=== PATIENT | male | born 1940 | race Caucasian/White ===

== ENCOUNTER 2022-07-31 16:05 | Inpatient (IN) | payer MEDICARE, BC, SELFPAY ==
[2022-07-31] VITALS (32 sets, daily range): BP systolic 140–196; BP diastolic 62–139; PULSE 40–61; RESP 16–30; TEMP 36.4–36.7; O2SAT 94–98; BMI 31.6; BMI 31.9
--- NOTE | 2022-07-31 16:34 | ED.GENADULT ---
HPI - General Adult General Time Seen by Provider: 16:34 Date Seen: 07/31/22 Chief complaint: Shortness of Breath/Dyspnea Stated complaint: Dizzy Light headed Fall Afib Time Seen by Provider: 07/31/22 16:10 Source: patient and RN notes reviewed Mode of arrival: ambulatory Limitations: no limitations History of Present Illness HPI narrative: Patient is an 82-year-old male coming in accompanied by his daughter with multitude of symptoms. When she saw him this morning she thought he just did not look like he is feeling not well, he decided to come in later today but not at that time. He has had a little increased cough over baseline, some sputum production. He has been having increasing weakness, reports he did fall after tripping today. Denies any loss of consciousness or hitting his head but is on blood thinner. He has paroxysmal atrial fibrillation. He has had no chest pain. He denies any abdominal pain, no nausea or vomiting. His stools maybe are becoming more diarrheal over the last couple weeks and is having difficulty with fecal continence with this. He thought maybe he was just becoming incontinent of stool but on questioning it really sounds like the stools are more runny. She is not aware of any fevers. He has had some episodes of increased urinary incontinence. That is not necessarily new. They do worry about possibly having a UTI and and wonder if we can obtain a urinalysis. He has had some recent severe low back pain which he states has been gone for about a week now. He did do physical therapy and see a chiropractor. He notes no pain going into either leg, no numbness or tingling through the legs or the perineum. The fall today he states he just tripped over his sandal. He notes this morning about 10-15 minutes after breakfast he had due to the bathroom and had a stool. He went to [place] for lunch and soon as he came home he had fecal urgency and some incontinence, had to get to the toilet right away. Related Data Home Medications Medication Instructions Recorded Confirmed amlodipine 5 mg tablet 5 mg PO QDAY 06/18/22 07/31/22 atorvastatin 40 mg tablet 40 mg PO QPM 06/18/22 07/31/22 epinephrine 0.3 mg/0.3 mL 0.3 mg IM Q4H PRN 06/18/22 07/31/22 injection, auto-injector finasteride 5 mg tablet 5 mg PO QDAY 06/18/22 07/31/22 fluticasone propionate 50 2 spray intranasal QDAY 06/18/22 07/31/22 mcg/actuation nasal spray,suspension levothyroxine 200 mcg tablet 200 mcg PO QDAY 06/18/22 07/31/22 omeprazole 20 mg capsule,delayed 20 mg PO QDAY 06/18/22 07/31/22 release rivaroxaban 20 mg tablet 20 mg PO QDAY 06/18/22 07/31/22 sotalol 120 mg tablet 120 mg PO QDAY 06/18/22 07/31/22 Previous Rx's Medication Instructions Recorded tamsulosin 0.4 mg capsule 0.8 mg PO QDAY #180 caps 06/18/22 fluoxetine 40 mg capsule 40 mg PO QDAY #30 caps 07/29/22 Allergies Allergy/AdvReac Type Severity Reaction Status Date / Time aspirin Allergy Mild Unknown Verified 06/18/22 09:18 iodine Allergy Mild Hives Verified 06/18/22 09:18 Penicillins Allergy Mild Unknown Verified 06/18/22 09:18 strawberry Allergy Mild Unknown Verified 06/18/22 09:18 Sulfa (Sulfonamide Allergy Mild Hives Verified 06/18/22 09:18 Antibiotics) Review of Systems Status of ROS: Reports: 10 or more systems reviewed and unremarkable except as noted in History and below [facility] Medical History (Updated 07/31/22 @ 20:29 by Kim Kim MD) Alcohol intoxication History of alcohol abuse History of prostate cancer Surgical History (Updated 06/18/22 @ 09:25 by Lorenza Arias LPN) History of lumbar laminectomy Hx of appendectomy Hx of hemorrhoidectomy Hx of thyroidectomy Social History Smoking Status: Former smoker What tobacco products do you use: cigarettes Smoking quit date/years: >15 years ago Do you use any of these nicotine containing products: None Second hand tobacco smoke exposure: No How often do you have a drink containing alcohol: 4 or more times a week How many standard drinks containing alcohol do you have on a typical day: 5 or 6 How often do you have six or more drinks on one occasion: Daily or almost daily AUDIT-C Alcohol total score: 10 Non-prescribed substance use: denies use Exam Const: Vital Signs, click to edit/add: Vital Signs - 24 hr 07/31/22 16:18 07/31/22 16:50 07/31/22 16:30 Temperature 98.1 F Pulse Rate Pulse Rate [Right Pulse Oximeter] 55 L 55 L Respiratory Rate 22 Blood Pressure Blood Pressure [Ri ght Upper Arm] 140/74 H 147/69 H Pulse Oximetry 97 97 97 Oxygen Delivery Me thod Room Air Room Air 07/31/22 17:00 07/31/22 18:00 07/31/22 18:35 Temperature Pulse Rate Pulse Rate [Right Pulse Oximeter] 54 L 56 L 56 L Respiratory Rate Blood Pressure Blood Pressure [Ri ght Upper Arm] 157/112 H 196/85 H Pulse Oximetry 94 94 97 Oxygen Delivery Me thod Room Air Room Air Room Air 07/31/22 19:00 07/31/22 19:03 07/31/22 19:04 Temperature Pulse Rate 59 L 59 L 59 L Pulse Rate [Right Pulse Oximeter] Respiratory Rate Blood Pressure 150/100 H Blood Pressure [Ri ght Upper Arm] Pulse Oximetry 97 97 97 Oxygen Delivery Me thod 07/31/22 19:15 07/31/22 19:18 07/31/22 19:19 Temperature Pulse Rate 40 L 59 L 58 L Pulse Rate [Right Pulse Oximeter] Respiratory Rate Blood Pressure 193/100 H Blood Pressure [Ri ght Upper Arm] Pulse Oximetry 97 97 97 Oxygen Delivery Me thod 07/31/22 19:30 07/31/22 19:33 07/31/22 19:45 Temperature Pulse Rate 41 L 61 Pulse Rate [Right Pulse Oximeter] Respiratory Rate Blood Pressure 194/95 H Blood Pressure [Ri ght Upper Arm] Pulse Oximetry 95 96 94 Oxygen Delivery Me thod 07/31/22 19:50 07/31/22 19:51 07/31/22 20:00 Temperature Pulse Rate 58 L 59 L 51 L Pulse Rate [Right Pulse Oximeter] Respiratory Rate Blood Pressure 189/84 H Blood Pressure [Ri ght Upper Arm] Pulse Oximetry 96 97 97 Oxygen Delivery Me thod 07/31/22 20:03 07/31/22 20:15 07/31/22 20:17 Temperature Pulse Rate 57 L 57 L 56 L Pulse Rate [Right Pulse Oximeter] Respiratory Rate Blood Pressure 179/76 H 170/85 H Blood Pressure [Ri ght Upper Arm] Pulse Oximetry 95 97 97 Oxygen Delivery Me thod Documenting provider has reviewed patient's vital signs: yes Common normals: no apparent distress, oriented x3, no limitations, healthy appearing, alert and well nourished General appearance: cooperative, comfortable and well kempt Nutritional appearance: overweight HENMT: Common normals: normocephalic, head/scalp atraumatic, hearing grossly normal bilaterally, external nose normal, nasal mucous membranes and turbinates normal, moist oral mucous membranes, oropharynx normal, dentition normal and gingiva normal Head and scalp: normocephalic and atraumatic Nose: external nose normal and nasal mucous membranes and turbinates normal Eye: Common normals: PERRL, EOMs intact bilaterally and conjunctivae normal Conjunctiva: conjunctiva(e) normal Pupil: PERRL Other: Sclera might just be very slightly icteric Neck & C-Spine: Common normals: full ROM, no lymphadenopathy, supple (No midline tenderness), no meningeal signs, no JVD and thyroid normal Thyroid: thyroid normal Resp: Common normals: normal respiratory effort, no retractions, no use of accessory muscles and clear to auscultation bilaterally Auscultation: clear to auscultation bilaterally Cardio: Common normals: no JVD, regular rate, regular rhythm, S1 normal heart sound, S2 normal heart sound, no gallops and no clicks Rate: regular rate Rhythm: regular rhythm Heart sounds: S1 normal, S2 normal and murmur (Soft systolic, rub right sternal border.) GI: Common normals: Normal to inspection, nondistended, normoactive bowel sounds present, soft to palpation, non-tender, no hepatosplenomegaly and no masses Palpation: soft and no hepatosplenomegaly Extremity: Common normals: normal to inspection, full ROM, normal capillary refill, no joint enlargement, no clubbing, cyanosis or edema, no calf tenderness and no pedal edema Neuro: Common normals: oriented x3, CN's II-XII intact bilaterally, moves all extremities, no focal motor deficits and no sensory deficits noted Sensorium/orientation: alert Meningeal signs: no meningeal signs Speech: speech normal Psych: Appearance: well kempt Course Course Hospital Course: Patient has a multitude of symptoms including respiratory, urinary concerns, possibly diarrhea with fecal incontinence, weakness. Differential is broad, not all symptoms might be explained by 1 entity. Will get a head CT, chest x-ray, full complement of labs encompassing infectious, cardiac, endocrine, GI, pulmonary as well as neurologic. I do see history of alcohol abuse in his records, will also consider this. Reevaluation(s) Reevaluation #1: About 18 40, nursing staff alerted me to his telemetry. He was having slow pulse in the 30s. He was feeling short of breath with this. I had nursing staff recheck a troponin and obtain an EKG. The point of care troponin was still normal. I have a subsequent EKG showing sinus bradycardia in the 30s with a bigeminy pattern. The machine read it at 59 but it most certainly is not. He then bounce back up to 58. He is on amlodipine and sotalol. We will be paging [facility] on-call to talk to them regarding this patient. Time: 18:40 Consultations Consultation #1: Patient was reviewed with Cardiology Dr. Marcano from [place]. The absolutely do not have any beds nor does any other facility within the [facility], all are on divert. Patient does not require ICU is he is not that unstable. Dr. Marcano said patient needs to be on his sotalol for his control of his atrial fibrillation in due to the sinus node dysfunction is developing is going to need a pacemaker. I have reviewed this with the current hospitalist, the patient and his daughter. She was under the impression that it was emergent it might be possible to get him a bed. This is not the case, it is not emergent enough at this point. He will not be able leave the hospital, I did discuss looking at places like [facility] but we also have ambulance issues right now is 1 of our ambulance is is transferring another cardiac patient to [facility]. We have not outside ambulance transfer and another patient to an ICU bed. There will be difficulty with transfer. Given all of this, his been decided that he will be watched here in [facility] overnight, they will need to try [facility] contact Cardiology and get him placement wearer pacemaker could be done. Time: 20:13 Vital Signs Vital signs: Initial Vital Signs Temperature 98.1 F 07/31/22 16:18 Temperature Source Temporal Artery Scan 07/31/22 16:18 Pulse Rate 55 L 07/31/22 16:18 Respiratory Rate 22 07/31/22 16:18 Blood Pressure 140/74 H 07/31/22 16:18 Blood Pressure Mean 96 07/31/22 16:18 Blood Pressure Position Semi-Fowlers 07/31/22 16:18 Pulse Oximetry 97 07/31/22 16:18 Oxygen Delivery Method 07/31/22 16:18 Vital Signs Temperature 98.1 F 07/31/22 16:18 Pulse Rate 55 L 07/31/22 16:18 Respiratory Rate 22 07/31/22 16:18 Blood Pressure 140/74 H 07/31/22 16:18 Pulse Oximetry 97 07/31/22 16:18 Oxygen Delivery Method 07/31/22 16:18 Temperature 98.1 F 07/31/22 16:18 Pulse Rate 56 L 07/31/22 20:17 Respiratory Rate 22 07/31/22 16:18 Blood Pressure 170/85 H 07/31/22 20:17 Pulse Oximetry 97 07/31/22 20:17 Oxygen Delivery Method 07/31/22 18:35 Medical Decision Making Lab Data Lab results reviewed: Yes I reviewed the patient's lab results Labs: Lab Results 07/31/22 07/31/22 07/31/22 Range/Units 04:21 16:51 17:00 WBC (4.50-11.00) K/uL RBC (4.30-5.90) m/uL Hgb (13.5-17.5) gm/dL Hct (37.0-53.0) % MCV (80-100) fL MCH (26-34) pg MCHC (32-36) gm/dL RDW Coeff of Florentin (11.5-15.5) % Plt Count (140-440) K/uL Neut % (Auto) (42.0-72.0) % Lymph % (Auto) (20-44) % Dougherty % (Auto) (0.0-11.0) % Eos % (Auto) (0.0-7.0) % Baso % (Auto) (0.0-3.0) % Neut # (Auto) (1.7-7.0) K/uL Lymph # (Auto) (0.90-2.90) K/uL Dougherty # (Auto) (0.00-0.90) K/UL Eos # (Auto) (0.00-0.50) K/uL Baso # (Auto) (0.00-0.30) K/uL Abs Immat Gran (auto) (0.00-0.30) K/uL D-Dimer Quant (PE/DVT) (0.00-0.50) ug/ml VBG pH 7.436 H (7.32-7.43) VBG pCO2 40 (40-50) mmHG VBG pO2 40.0 (25-47) mmHG VBG HCO3 27 (21-28) mmol/L Sodium (135-149) mmol/L Potassium (3.6-5.1) mmol/L Chloride (96-114) mmol/L Carbon Dioxide (20-32) mmol/L BUN (7-30) mg/dL Creatinine (0.5-1.5) mg/dL Estimated Creat Clear Estimated GFR ml/min Glucose (60-115) mg/dL Lactate 1.1 (0.5-1.9) mmol/L Calcium (8.4-10.6) mg/dL Magnesium (1.5-2.6) mg/dL Total Bilirubin (0.1-1.5) mg/dL AST (12-35) U/L ALT (4-50) U/L Alkaline Phosphatase (40-150) U/L C-Reactive Protein (0.5-1.0) mg/dL NT-Pro-B Natriuret Pep (0-450) PG/mL Total Protein (6.0-8.3) g/dL Albumin (3.3-5.0) g/dL TSH (0.270-4.200) uIU/mL Free T4 (0.70-1.85) ng/dL Urine Color (Yellow) Urine Appearance (Clear) Urine pH (5.0-8.5) Ur Specific [place] (1.000-1.030) Urine Protein (Negative) Urine Glucose (UA) (Negative) Urine Ketones (Negative) Urine Blood (Negative) Urine Nitrite (Negative) Urine Bilirubin (Negative) Urine Urobilinogen (0.2-1.0) Ur Leukocyte Esterase (Negative) Urine RBC (0-2) Urine WBC (0-5) Ur Squamous Epith Cells (None-Few) Urine Bacteria (None) Ethyl Alcohol (0.01-0.03) % SARS-CoV-2 (PCR) Negative SARS-CoV-2 (Negative) POC Troponin I 0.01 (0.01-0.04) ng/ml 07/31/22 07/31/22 07/31/22 Range/Units 17:07 17:07 17:07 WBC 6.40 (4.50-11.00) K/uL RBC 4.17 L (4.30-5.90) m/uL Hgb 12.7 L (13.5-17.5) gm/dL Hct 38.4 (37.0-53.0) % MCV 92 (80-100) fL MCH 31 (26-34) pg MCHC 33 (32-36) gm/dL RDW Coeff of Florentin 13.4 (11.5-15.5) % Plt Count 191 (140-440) K/uL Neut % (Auto) 72.1 H (42.0-72.0) % Lymph % (Auto) 16.7 L (20-44) % Dougherty % (Auto) 7.8 (0.0-11.0) % Eos % (Auto) 3.0 (0.0-7.0) % Baso % (Auto) 0.2 (0.0-3.0) % Neut # (Auto) 4.60 (1.7-7.0) K/uL Lymph # (Auto) 1.10 (0.90-2.90) K/uL Dougherty # (Auto) 0.50 (0.00-0.90) K/UL Eos # (Auto) 0.19 (0.00-0.50) K/uL Baso # (Auto) 0.01 (0.00-0.30) K/uL Abs Immat Gran (auto) 0.01 (0.00-0.30) K/uL D-Dimer Quant (PE/DVT) 0.51 H (0.00-0.50) ug/ml VBG pH (7.32-7.43) VBG pCO2 (40-50) mmHG VBG pO2 (25-47) mmHG VBG HCO3 (21-28) mmol/L Sodium 137 (135-149) mmol/L Potassium 3.7 (3.6-5.1) mmol/L Chloride 107 (96-114) mmol/L Carbon Dioxide 24 (20-32) mmol/L BUN 15 (7-30) mg/dL Creatinine 1.0 (0.5-1.5) mg/dL Estimated Creat Clear 55.10 Estimated GFR 75 ml/min Glucose 138 H (60-115) mg/dL Lactate (0.5-1.9) mmol/L Calcium 8.6 (8.4-10.6) mg/dL Magnesium 1.8 (1.5-2.6) mg/dL Total Bilirubin 1.2 (0.1-1.5) mg/dL AST 24 (12-35) U/L ALT 19 (4-50) U/L Alkaline Phosphatase 103 (40-150) U/L C-Reactive Protein 0.6 (0.5-1.0) mg/dL NT-Pro-B Natriuret Pep 697 H (0-450) PG/mL Total Protein 6.6 (6.0-8.3) g/dL Albumin 3.7 (3.3-5.0) g/dL TSH (0.270-4.200) uIU/mL Free T4 (0.70-1.85) ng/dL Urine Color (Yellow) Urine Appearance (Clear) Urine pH (5.0-8.5) Ur Specific [place] (1.000-1.030) Urine Protein (Negative) Urine Glucose (UA) (Negative) Urine Ketones (Negative) Urine Blood (Negative) Urine Nitrite (Negative) Urine Bilirubin (Negative) Urine Urobilinogen (0.2-1.0) Ur Leukocyte Esterase (Negative) Urine RBC (0-2) Urine WBC (0-5) Ur Squamous Epith Cells (None-Few) Urine Bacteria (None) Ethyl Alcohol < 0.01 L (0.01-0.03) % SARS-CoV-2 (PCR) (Negative) POC Troponin I (0.01-0.04) ng/ml 07/31/22 07/31/22 07/31/22 Range/Units 17:07 18:20 19:15 WBC (4.50-11.00) K/uL RBC (4.30-5.90) m/uL Hgb (13.5-17.5) gm/dL Hct (37.0-53.0) % MCV (80-100) fL MCH (26-34) pg MCHC (32-36) gm/dL RDW Coeff of Florentin (11.5-15.5) % Plt Count (140-440) K/uL Neut % (Auto) (42.0-72.0) % Lymph % (Auto) (20-44) % Dougherty % (Auto) (0.0-11.0) % Eos % (Auto) (0.0-7.0) % Baso % (Auto) (0.0-3.0) % Neut # (Auto) (1.7-7.0) K/uL Lymph # (Auto) (0.90-2.90) K/uL Dougherty # (Auto) (0.00-0.90) K/UL Eos # (Auto) (0.00-0.50) K/uL Baso # (Auto) (0.00-0.30) K/uL Abs Immat Gran (auto) (0.00-0.30) K/uL D-Dimer Quant (PE/DVT) (0.00-0.50) ug/ml VBG pH (7.32-7.43) VBG pCO2 (40-50) mmHG VBG pO2 (25-47) mmHG VBG HCO3 (21-28) mmol/L Sodium (135-149) mmol/L Potassium (3.6-5.1) mmol/L Chloride (96-114) mmol/L Carbon Dioxide (20-32) mmol/L BUN (7-30) mg/dL Creatinine (0.5-1.5) mg/dL Estimated Creat Clear Estimated GFR ml/min Glucose (60-115) mg/dL Lactate (0.5-1.9) mmol/L Calcium (8.4-10.6) mg/dL Magnesium (1.5-2.6) mg/dL Total Bilirubin (0.1-1.5) mg/dL AST (12-35) U/L ALT (4-50) U/L Alkaline Phosphatase (40-150) U/L C-Reactive Protein (0.5-1.0) mg/dL NT-Pro-B Natriuret Pep (0-450) PG/mL Total Protein (6.0-8.3) g/dL Albumin (3.3-5.0) g/dL TSH 0.190 L (0.270-4.200) uIU/mL Free T4 1.57 (0.70-1.85) ng/dL Urine Color Yellow (Yellow) Urine Appearance Clear (Clear) Urine pH 6.5 (5.0-8.5) Ur Specific [place] 1.020 (1.000-1.030) Urine Protein Negative (Negative) Urine Glucose (UA) Negative (Negative) Urine Ketones Trace A (Negative) Urine Blood Trace-lysed A (Negative) Urine Nitrite Negative (Negative) Urine Bilirubin Negative (Negative) Urine Urobilinogen 0.2 (0.2-1.0) Ur Leukocyte Esterase Trace A (Negative) Urine RBC 0-2 (0-2) Urine WBC 0-2 (0-5) Ur Squamous Epith Cells None (None-Few) Urine Bacteria None (None) Ethyl Alcohol (0.01-0.03) % SARS-CoV-2 (PCR) (Negative) POC Troponin I 0.01 (0.01-0.04) ng/ml Imaging Data CT scan - head: Attestation: I have reviewed the pertinent imaging results. Radiologist's impression: Patient: REBEKAH XIONG Facility:?[facility] Patient ID:?[id number] Site Patient ID:?[id number] Site :?[id number] Study:?CT Head W/O-07/31/2022 6:00:16 PM Ordering Physician:Lupe Alvarez Final Report: INDICATION: Falls. Incontinence. TECHNIQUE: CT of the head without contrast. Coronal and sagittal reformats are included. COMPARISON: None. FINDINGS: No CT evidence of acute cortical infarct. No loss of pepper white matter differentiation. No hyperdense vessels to suggest intracranial thrombus. No acute intracranial hemorrhage. No mass effect or midline shift. No hydrocephalus. 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 Stable. Scattered white matter hypoattenuation, typical for chronic microvascular ischemic change. No acute osseous abnormalities. Moderate polypoid opacification of the right maxillary sinus by mixed density material. Complete opacification of the left maxillary sinus with hyperdense material, likely representing a polyp. Associated widening of the ostium. 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 Mild to moderate opacification of the paranasal sinuses elsewhere appear normal soft tissues. IMPRESSION: IMPRESSION:1. No CT evidence of acute cortical infarct. No acute intracranial hemorrhage. No other acute intracranial findings. Stable chronic findings as above. Please note that all CT scans at this facility use dose modulation, iterative reconstruction, and/or weight-based dosing when appropriate to reduce radiation dose to as low as reasonably achievable. Dictated by Arnaud Palacios MD @ 07/31/2022 6:13:44 PM (Electronic Signature) Chest x-ray: Attestation: I have reviewed the pertinent imaging results. My impression: Significant cardiomegaly on my preliminary read, I do not appreciate any other acute cardiopulmonary pathology, await Radiology over-read. Radiologist's impression: Patient: REBEKAH XIONG Facility:?[facility] Patient ID:?[id number] Site Patient ID:?[id number]. Site :?[id number] Study:?XRay Chest 1V-07/31/2022 6:10:21 PM Ordering Physician:Lupe Alvarez Final Report: INDICATION: Shortness of breath TECHNIQUE: Chest 1 view. COMPARISON: FINDINGS: Cardiovascular and mediastinum: Cardiomegaly. Normal mediastinum. Lungs and pleural space: Lungs are clear. No sign of infiltrate or mass. No sign of pleural effusion. No pneumothorax. Bones and soft tissues: No significant findings. IMPRESSION: No acute findings. Cardiomegaly. Dictated by Oscar Lord MD @ 07/31/2022 6:28:39 PM Dictated by: Oscar Lord MD @ 07/31/2022 18:28:44 (Electronic Signature) ECG Data Attestation: I personally reviewed and interpreted this ECG as follows: (Sinus bradycardia, 55 beats per minute, right bundle branch block. QT corrected 484 milliseconds.) Prior ECG tracings: not available for review Critical Care Time Critical Care Time Critical Care Time: No Discharge Plan Discharge Clinical Impression: Bradycardia, Paroxysmal atrial fibrillation Patient Disposition: Admitted As Inpatient Condition: Unchanged Prescriptions: No Action epinephrine 0.3 mg/0.3 mL auto-injector 0.3 mg IM Q4H PRN levothyroxine 200 mcg tablet 200 mcg PO QDAY finasteride 5 mg tablet 5 mg PO QDAY amlodipine 5 mg tablet 5 mg PO QDAY rivaroxaban 20 mg tablet 20 mg PO QDAY Rx Instructions: must administer with meal fluticasone propionate 50 mcg/actuation spray,suspension 2 spray intranasal QDAY Rx Instructions: administer into each nostril omeprazole 20 mg capsule,delayed release(DR/EC) 20 mg PO QDAY atorvastatin 40 mg tablet 40 mg PO QPM sotalol 120 mg tablet 120 mg PO QDAY Rx Instructions: With meal tamsulosin 0.4 mg capsule 0.8 mg PO QDAY Qty: 180 3RF fluoxetine 40 mg capsule 40 mg PO QDAY Qty: 30 0RF Follow Up/Referrals: Oscar Arevalo MD [Primary Care Provider] -
--- NOTE | 2022-07-31 16:50 | CRLHL7_ITS ---
For Patients: As a result of the Cures Act, medical imaging exams and procedure reports are released immediately into your electronic medical record. You may view this report before your referring provider. If you have questions, please contact your health care provider. INDICATION: Shortness of breath TECHNIQUE: Chest 1 view. COMPARISON: FINDINGS: Cardiovascular and mediastinum: Cardiomegaly. Normal mediastinum. Lungs and pleural space: Lungs are clear. No sign of infiltrate or mass. No sign of pleural effusion. No pneumothorax. Bones and soft tissues: No significant findings. IMPRESSION: No acute findings. Cardiomegaly. Dictated by Oscar Lord MD @ 07/31/2022 6:28:39 PM Dictated by: Oscar Lord MD @ 07/31/2022 18:28:44 (Electronically Signed)
--- NOTE | 2022-07-31 16:51 | CRLHL7_ITS ---
For Patients: As a result of the Cures Act, medical imaging exams and procedure reports are released immediately into your electronic medical record. You may view this report before your referring provider. If you have questions, please contact your health care provider. INDICATION: Falls. Incontinence. TECHNIQUE: CT of the head without contrast. Coronal and sagittal reformats are included. COMPARISON: None. FINDINGS: No CT evidence of acute cortical infarct. No loss of pepper white matter differentiation. No hyperdense vessels to suggest intracranial thrombus. No acute intracranial hemorrhage. No mass effect or midline shift. No hydrocephalus. 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 Stable. Scattered white matter hypoattenuation, typical for chronic microvascular ischemic change. No acute osseous abnormalities. Moderate polypoid opacification of the right maxillary sinus by mixed density material. Complete opacification of the left maxillary sinus with hyperdense material, likely representing a polyp. Associated widening of the ostium. 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 Mild to moderate opacification of the paranasal sinuses elsewhere appear normal soft tissues. IMPRESSION: IMPRESSION:1. No CT evidence of acute cortical infarct. No acute intracranial hemorrhage. No other acute intracranial findings. Stable chronic findings as above. Please note that all CT scans at this facility use dose modulation, iterative reconstruction, and/or weight-based dosing when appropriate to reduce radiation dose to as low as reasonably achievable. Dictated by Arnaud Palacios MD @ 07/31/2022 6:13:44 PM (Electronically Signed)
[2022-07-31 17:23] LABS: Troponin, Point-of-Care* 0.01 ng/ml (0.01-0.04)
[2022-07-31 17:25] LABS: HCO3 VBG 27 mmol/L (21-28); Lactate* 1.1 mmol/L (0.5-1.9); PCO2 VBG 40 mmHG (40-50); pH VBG 7.436 (7.32-7.43)
[2022-07-31 17:29] LABS: Basophils Absolute Auto 0.01 K/uL (0.00-0.30); Basophils Percent Auto 0.2 % (0.0-3.0); Eosinophils Absolute Auto 0.19 K/uL (0.00-0.50); Hematocrit 38.4 % (37.0-53.0); Hemoglobin* 12.7 gm/dL (13.5-17.5); Immature Granulocytes Abs Auto 0.01 K/uL (0.00-0.30); Lymphocytes Percent Auto 16.7 % (20-44); Mean Corpuscular HGB Conc 33 gm/dL (32-36); Mean Corpuscular Hemoglobin 31 pg (26-34); Mean Corpuscular Volume 92 fL (80-100); Monocytes Percent Auto 7.8 % (0.0-11.0); Neutrophils Percent Auto 72.1 % (42.0-72.0); Platelet Count* 191 K/uL (140-440); RDW Coefficient of Variation % 13.4 % (11.5-15.5); Red Blood Count 4.17 m/uL (4.30-5.90)
--- OUTSIDE RECORDS SUMMARY | 2022-07-31 17:30 | XMS_ITS | Encounter Summary ---
:1940 Author Organization [facility] Address [address] [place] [id number] Care Team Providers Name Role Phone Unavailable Primary Care Provider Unavailable Encounter Details Date Type Department Care Team Description 01/03/2008 Office Visit-[facility] Allergy and Asthma Ortiz Shay [facility] CT Building XXX RESIGNED XXX 2nd Floor, Clinic 2A [address] [facility] [address] [id number] [phone] Social History Tobacco Use Types Packs/Day Years Used Date Never Assessed Sex Assigned at Date Recorded Not on file documented as of this encounter Progress Notes Ortiz Shay - 01/03/2008 11:20 AM CDT Manager Applied: Ortiz Shay Status: Final - Signature Encounter: 03 Jan 2008 Type: Allergy and Asthma Visit Pulmonary, Allergy and Critical Care Department of Medicine [place] [address] [place] [address] Office: [phone] Allergy and Asthma Clinic [facility] Fifth Floor, Clinic [address]A [address] [place] [address] RE: Abraham Mancuso : 1940 ELVIRA: 01/03/2008 OUTPATIENT VISIT NOTE HISTORY OF PRESENT ILLNESS: Patient is a 68-year-old man we are seeing with regard to 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 At present he is on doxepin 10 mg a day, Camelia 180 mg q.d., Singulair 10 mg a day, ranitidine 150 b.i.d. Because of persistence of his symptoms, we are seeing afua at the present time. REVIEW OF SYSTEMS: Constitutional, allergy, eyes, ENT, respiratory, cardiovascular, GI, , hematologic, endocrine, skin, musculoskeletal, neurological, psychiatric were all negative outside of what I mentioned already and the followin. Lab studies showed borderline ODILON, elevated IgE level of 462, elevated thyroid peroxidase of 74,261, and 168, normal thyroid function, normal tryptase. 2. Constitutional, allergy, eyes, ENT, respiratory, cardiovascular, GI, , hematologic, endocrine, skin, musculoskeletal, neurological, psychiatric were otherwise unchanged over those of his last visit. PHYSICAL EXAMINATION: Physical examination today shows weight 200.6, blood pressure 148/81, pulse 66. Head, EENT unremarkable. No edema was noted of the nasal mucosa. Neck examination revealed no abnormal neck vein distention. Lungs revealed no wheezes or rhonchi. Heart: No murmurs or arrhythmias. Abdominal examination without organomegaly. Skin revealed a few urticarial lesions. Neurological examination negative. 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 RECOMMENDATIONS: 1. I plan on Periactin 4 mg b.i.d. 2. Food specific IgE panel. 3. Doxepin 20 mg a day. 4. Camelia 180 mg q.day. 5. Ranitidine 150 mg b.i.d. 6. Singulair 10 mg q.d. 7. Continue his other medications. 8.To be reevaluated in one month or sooner if his symptoms warrant. Ortiz Shay M.D. mixed livestock farmer Director, Asthma & Allergy Program MB:laurie Electronically signed by:Sanju Shay M.D. Jan 17 2008 12:42PM HUNTING AND FISHING GUIDE Ortiz Shay - 01/03/2008 11:20 AM CDT Manager Applied: Ortiz Shay Status: Final - Signature Encounter: 03 Jan 2008 Type: Allergy and Asthma Visit Pulmonary, Allergy and Critical Care Department of Medicine [place] [address] [place] [address] Office: [phone] Allergy and Asthma Clinic [facility] Fifth Floor, Clinic [address]A [address] [place] [address] RE: Abraham Mancuso : 1940 ELVIRA: 01/03/2008 OUTPATIENT VISIT NOTE ADDENDUM: 1. We plan to see how he does with the addition of Periactin. Ortiz Shay M.D. mixed livestock farmer Director, Asthma & Allergy Program MB:laurie Electronically signed by:Sanju Shay M.D. Jan 17 2008 12:42PM HUNTING AND FISHING GUIDE documented in this encounter Plan of Treatment Not on filedocumented as of this encounter Visit Diagnoses Not on filedocumented in this encounter
--- OUTSIDE RECORDS SUMMARY | 2022-07-31 17:30 | XMS_ITS | Encounter Summary ---
:1940 Author Organization [facility] Address [address] [place] [address] Care Team Providers Name Role Phone Unavailable Primary Care Provider Unavailable Encounter Details Date Type Department Care Team Description 01/03/2010 Historic Results INTERFACED REPORT Manuel Silvestre MD [facility] [place] [id number] [place], [place] [address] (Wo rk) Social History Tobacco Use Types Packs/Day Years Used Date Never Assessed Sex Assigned at Date Recorded Not on file documented as of this encounter Plan of Treatment Not on filedocumented as of this encounter Procedures Procedure Name Priority Date/Time Associated Diagnosis Comme nts EKG 12 LEAD Routine 01/03/2010 8:55 AM Results f or this RING MAKING MACHINE OPERATOR procedure are i n the results section . documented in this encounter Results EKG 12 LEAD (01/03/2010 8:55 AM RING MAKING MACHINE OPERATOR) [facility] Method Time Signature Ventricular Rate 98 BPM RADIOLOGY RESULTS Atrial Rate 98 BPM RADIOLOGY RESULTS ME Interval 188 ms RADIOLOGY RESULTS QRS Duration 100 ms RADIOLOGY RESULTS QT 332 ms RADIOLOGY RESULTS QTc 423 ms RADIOLOGY RESULTS R AXIS 7 degrees RADIOLOGY RESULTS T [place] 28 degrees RADIOLOGY RESULTS Interpretation Sinus rhythm RADIOLOGY ECG Incomplete right bundle branch block RESULTS Borderline ECG When compared with ECG of 03-JAN-2010 08:49, (unconfirmed) Vent. rate has decreased BY ??[address] no longer depressed in Inferior leads ST less depressed in Lateral leads Specimen Anatomical Collection Method Collection Time Receive d Time (Source) Location / / Volume Laterality 01/03/2010 8:55 AM 0 9:19 RING MAKING MACHINE OPERATOR AM RING MAKING MACHINE OPERATOR Ciro Silvestre MD ECG ORDERABLES Performing Organization Address City/State/ZIP Code Phon e Number RADIOLOGY RESULTS documented in this encounter Visit Diagnoses Not on filedocumented in this encounter
--- OUTSIDE RECORDS SUMMARY | 2022-07-31 17:30 | XMS_ITS | Encounter Summary ---
:1940 Author Organization [facility] Address [address] [place] [address]. [place] [address] Care Team Providers Name Role Phone Maikel Brock Primary Care Provider Encounter Details Date Type Department Care Team Description 05/22/2022 Travel Social History Tobacco Use Types Packs/Day Years Used Date Former Smoker Quit: 11/02/18 96 Smokeless Tobacco: Never Used Alcohol Use Standard Drinks/Week Comments Yes 28 (1 standard drink = 0.6 oz pure alcoh ol) Sex Assigned at Date Recorded Not on file COVID-19 Exposure Response Date Recorded In the last 10 days, have you been in contact with No / Unsu re 05/22/2022 6:12 PM CDT someone who was confirmed or suspected to have Coronavirus/COVID-19? documented as of this encounter Plan of Treatment Not on filedocumented as of this encounter Visit Diagnoses Not on filedocumented in this encounter Care Teams Jewel Sawyer Relationship Specialty Start Date End Date Maikel Brock PCP - General Family Practice 09/19/[address] [place] [address] documented as of this encounter
--- OUTSIDE RECORDS SUMMARY | 2022-07-31 17:30 | XMS_ITS | Encounter Summary ---
:1940 Author Organization [place] [facility] Address [address] [facility] [place] [address] Care Team Providers Name Role Phone Carlos Alberto Corral MD Primary Care Provider Encounter Details Date Type Department Care Team Description 11/02/[address] [facility] Mya Dela Cruz MD [facility]i [address] [place] [phone] [place] [address] Anesthesia Record Procedure Summary Procedure Name Responsible Anesthesia Start Anesthesia Stop Anesthesiologist Time Time BILATERAL UPPER LID Henry Dela Cruz MD 11/02/12 0931 1039 PTOSIS AND MECHANICAL PTOSIS REPAIR (Bilateral Eye) Events Date Time Event Comment 11/02/2012 0831 0931 An Start 1039 An Stop No medications on file. Agents No agents on file. Blood No blood administrations on file. Lines, Drains, and Airways Type Details Placement Removal Peripheral IV 11/02/12; 0934; 11/02/12 0934 by Bernardo, 11/02/12 1127 by Left; Hand EDMUNDO Reese Melia , KAYCEE DIP TANKER Incision/Surgical Site 11/02/12; 1030; 11/02/12 1030 by 09/19/17 1102 by Bilateral; Eye; Holli Matthews RN Fall, Tra cy A, RN 09/19/17; 1102 documented in this encounter Social History Tobacco Use Types Packs/Day Years Used Date Former Smoker Quit: 11/02/18 96 Smokeless Tobacco: Never Used Alcohol Use Standard Drinks/Week Comments Yes 0 (1 standard drink = 0.6 oz pure alcoho l) Sex Assigned at Date Recorded Not on file documented as of this encounter OR Notes Anesthesia Postprocedure Evaluation - Henry Dela Cruz MD - 11/02/2012 11:30 AM CST Anesthesia Post-Evaluation Note Patient: Abraham Mancuso Patient location: PACU Procedure(s) Performed: Procedure(s) with comments: REPAIR PTOSIS BILATERAL - BILATERAL UPPER LID PTOSIS AND MECHANICAL PTOSIS REPAIR Anesthesia type: MAC Patient Condition Respiratory Function (RR / SpO2 / Airway Patency): Satisfactory Cardiac Function (HR / Rhythm / BP): Satisfactory Mental Status: Satisfactory Temperature: Satisfactory Pain Control: Satisfactory PONV: None Beta-Keanu Therapy: None indicated Hydration Status: Satisfactory Last Vitals: Filed Vitals: 11/02/12 1050 11/02/12 1100 11/02/12 1115 BP: 154/84 164/88 162/86 Temp: Resp: 16 16 16 SpO2: 97% 97% 97% 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 Pt has had prior anesthetic. Type: General ROS/MED HX Pulmonary: Neurologic: Cardiovascular: (+) hypertension . . METS/Exercise Tolerance: Hematologic: Musculoskeletal: GI/Hepatic: Renal: Endo: (+) thyroid problem hypothyroidism, Psychiatric: Infectious Disease: Other: Anesthesia Plan ASA Score 3 . Plan for MAC Routine analgesia and antiemetics to be used for post-operative care. Anesthetic plan, risks, benefits and alternatives discussed with: patient or passenger service representative. Pre-operative diagnosis: @ORPREDX@ @ORPROCALL@ @ALLERGY@ Current Outpatient Prescriptions on File Prior to Visit: AmLODIPine Besylate (NORVASC PO), Take 5 mg by mouth daily. FLUoxetine HCl (PROZAC PO), Take 40 mg by mouth daily. Levothyroxine Sodium (SYNTHROID PO), Take 112 mcg by mouth daily. tamsulosin (FLOMAX) 0.4 MG 24 hr capsule, Take 0.4 mg by mouth daily. atorvastatin (LIPITOR) 20 MG tablet, TAKE 1 TABLET BY MOUTH EVERY DAY @LASTLAB(hgb,inr,k)@ History & Physical Review History and physical reviewed; no interval change.incomp. RBBB; prostate cancer . 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
--- OUTSIDE RECORDS SUMMARY | 2022-07-31 17:30 | XMS_ITS | Encounter Summary ---
:1940 Author Organization [facility] Address [address] [place] [address] Care Team Providers Name Role Phone Vinod Maikel Chandra Primary Care Provider Reason for Visit Reason Comments Hematuria Encounter Details Date Type Department Care Team Description 09/19/2017 Emergency [facility] Danica Gloria MD [facility] Emergency Dept [facility] [address] [place], [place] [id number] [phone] Social History Tobacco Use Types Packs/Day Years Used Date Former Smoker Quit: 11/02/18 96 Smokeless Tobacco: Never Used Alcohol Use Standard Drinks/Week Comments Yes 28 (1 standard drink = 0.6 oz pure alcoh ol) Sex Assigned at Date Recorded Not on file documented as of this encounter Last Filed Vital Signs Vital Sign Reading Time Taken Comments Blood Pressure 148/81 09/19/2017 12:54 PM WEED CONTROLLER Pulse - - Temperature 36.6 ??C (97.9 ??F) 09/19/2017 9:41 AM WEED CONTROLLER Respiratory Rate 20 09/19/2017 12:54 PM WEED CONTROLLER Oxygen Saturation 94% 09/19/2017 12:54 Simultaneous filing. PM WEED CONTROLLER User may not hav e seen previous data. Inhaled Oxygen - - Concentration Weight 101.6 kg (224 lb) 09/19/2017 9:41 AM WEED CONTROLLER Height 172.7 cm (5' 8) 09/19/2017 9:41 AM WEED CONTROLLER Body Mass Index 34.06 09/19/2017 9:41 AM WEED CONTROLLER documented in this encounter Discharge Instructions Discharge InstructionsDaDionte watt MD - 09/19/2017 12:41 PM CST Images from the original note were not included. Blood in the Urine Blood in the urine (hematuria) has many possible causes. If it occurs after an injury (such as a caraccident or fall), it is most often a sign of bruising to the kidney or bladder. Common causes of blood in the urine include urinary tract infections, kidney stones, inflammation, tumors, or certain other diseases of the kidney or bladder. Menstruation can cause blood to appear in the urine sample, although it is not coming from the urinary tract. If only a trace amount of blood is present, it will show up on the urine test, even though the urinemay be yellow and not pink or red. This may occur with any of the above conditions, as well as heavyexercise or high fever. In this case, your doctor may want to repeat the urine test on another day. This will show if the blood is still present. If it is, then other tests can be done to find out the cause. Home care Follow these home care guidelines: ?? If your urine does not appear bloody (pink, brown or red) then you do not need to restrict your activity in any way. ?? If you can see blood in your urine, rest and avoid heavy exertion until your next exam. Do not use aspirin, blood thinners, or anti-platelet or anti- inflammatory medicines. These include ibuprofen and naproxen. These thin the blood and may increase bleeding. Follow-up care Follow up with your healthcare provider, or as advised. If you were injured and had blood in your urine, you should have a repeat urine test in 1 to 2 days. Contact your doctor for this test. A radiologist will review any X-rays that were taken. You will be told of any new findings that may affect your care. When to seek medical advice Call your healthcare provider right away if any of these occur: ?? Bright red blood or blood clots in the urine (if you did not have this before) ?? Weakness, dizziness or fainting ?? New groin, abdominal, or back pain ?? Fever of 100.4??F (38??C) or higher, or as directed by your healthcare provider ?? Repeated vomiting ?? Bleeding from the nose or gums or easy bruising Date Last Reviewed: 06/26/2016 ?? [phone] [employer]. [address] [place] [address], [place] [address]. All rights reserved. This information is not intended as a substitute for professional medical care. Always follow your healthcare professional's instructions. CONTROLLER documented in this encounter Medications at Time of Discharge Medication Sig Dispensed Refills Start Date End Date AmLODIPine Besylate (NORVASC Take 5 mg by 0 PO) mouth daily. atorvastatin (LIPITOR) 20 MG TAKE 1 TABLET BY 90 tablet 0 0 04/21/2012 tabletIndications: Pure MOUTH EVERY DAY hypercholesterolemia FLUoxetine HCl (PROZAC PO) Take 40 mg by 0 mouth daily. Levothyroxine Sodium (SYNTHROID Take 112 mcg by 0 PO) mouth daily. metoprolol (TOPROL-XL) 50 MG 24 Take 1 tablet 30 tablet 1 0 02/17/2014 hr tablet (50 mg) by mouth daily Rivaroxaban (XARELTO PO) 0 SOTALOL HCL, AF, PO 0 tamsulosin (FLOMAX) 0.4 MG Take by mouth 0 capsule daily documented as of this encounter ED Notes Denisse Figueroa RN - 09/19/2017 12:01 PM CST Patient to US via cart with transport. CONTROLLER Bonnie Hicks RN - 09/19/2017 9:46 AM CST A&Ox4. ABC's intact. Pt c/o blood and clots in urine that started last week. [facility] Has a follow appt on at [place], but bleeding has returned. Denies pain. CONTROLLER Dionte Gloria MD - 09/19/2017 9:29 AM CST History Chief Complaint: Hematuria HPI Abraham Mancuso is a 77 year old male with a history of atrial fibrillation on Xarelto (successful cardioversion), incomplete bundle branch block, hypothyroidism, hypertension, hypercholesterolemia, and prostate cancer who presents with hematuria. The patient states he first noticed the hematuria this past Thursday09/14/17. He states it has been ongoing since then and happens every day, but does not happen all day long. He notes he sometimes passes clots with the urine. The patient went to [facility] in [place] where they placed a Nava catheter and performed a urinalysis, which was negative. The patient went back on Thursday to have the catheter removed since it was irritating him. The patient was instructed to follow-up with urology, and made an appointment at [facility] for this 09/24/17. The patient denies any pain with bowel movements, dysuria, penile pain, scrotal pain, testicular pain, rash, or hernias. The patient does note decreased urine output and increased difficulty. The patient has had some increased shortness of breath and lightheadedness as well recently. The patient's PCP follows his PSA, which has been stable and was checked in the past year. Of note, the patient reports one incident of bloody penile discharge without urination. He denies weight loss, back/flank pain, or fever. Allergies: Aspirin Contrast dye: hives Lisinopril Penicillins Sulfa drugs Medications: Sotalol Xarelto Flomax Metoprolol Amlodipine besylate Prozac Levothyroxine sodium Lipitor Past Medical History: Atrial fibrillation with cardioversion Hypertension Hypercholesterolemia Hypothyroidism Incomplete bundle branch block Prostate cancer Past Surgical History: Appendectomy Hemorrhoidectomy, external Laminectomy lumbar one level Repair ptosis bilateral Thyroidectomy Family History: History reviewed. No pertinent family history. Social History: Smoking status: Former smoker, quit 10/1995 Alcohol use: Yes, 28 glasses of wine per week PCP: Carlos Alberto Corral Marital Status: [2] Review of Systems Constitutional: Negative for chills and fever. Respiratory: Positive for shortness of breath. Gastrointestinal: Negative for abdominal pain, diarrhea, nausea and vomiting. Genitourinary: Positive for decreased urine volume, difficulty urinating and hematuria. Negative fordysuria, penile pain, scrotal swelling and testicular pain. Skin: Negative for rash. All other systems reviewed and are negative. Physical Exam Patient Vitals for the past 24 hrs: BP Temp Temp src Heart Rate Resp SpO2 Height Weight 09/19/17 1211 152/83 - - - - - - - 09/19/17 0941 155/89 97.9 ??F (36.6 ??C) Oral 63 20 96 % 1.727 m (5' 8) 101.6 kg (224 lb) Physical Exam General: Well appearing, nontoxic. Resting comfortably Head: Scalp, face, and head appear normal Eyes: Conjunctivae non-injected and sclerae white. No pallor. ENT: The external nose is normal Pinnae are normal mucous membranes moist Uvula is in the midline Neck: Normal range of motion There is no rigidity noted Trachea is in the midline CV: Regular rate and rhythm Normal S1/S2, no S3/S4 No murmur or rub Resp: Lungs are clear and equal bilaterally There is no tachypnea No increased work of breathing No rales, wheezing, or rhonchi GI: Abdomen is soft, no rigidity or guarding No distension, or mass No tenderness or rebound tenderness. No CVA tenderness. : Normal circumcised male genitalia. Urethral meatus normal without bleeding or discharge. No lesions or rash. Testes non-tender to palpation in normal lie. No masses or swelling. No erythema. No palpable inguinal hernias. MS: Normal muscular tone Symmetric motor strength No lower extremity edema Skin: No rash or acute skin lesions noted Neuro: Awake and alert Speech is normal and fluent Moves all extremities spontaneously Gait normal Psych: Normal affect. Appropriate interactions. Emergency Department Course Imaging: Radiographic findings were communicated with the patient who voiced understanding of the findings. US Renal Complete: Negative. As read by Radiology. Laboratory: UA: Blood large, WBC 4 (H), RBC 103 (H), mucous present, o/w negative CBC: WNL (WBC 6.9, HGB 14.3, PLT 195) BMP: Glucose 107 (H), o/w WNL (Creatinine 0.98) Emergency Department Course: Past medical records, nursing notes, and vitals reviewed. 1052: I performed an exam of the patient and obtained history, as documented above. IV inserted and blood drawn. UA collected, results above. The patient was sent for a renal ultrasound while in the emergency department, findings above. 1245: I rechecked the patient. Explained findings to the patient and his daughter. I rechecked the patient. Findings and plan explained to the patient. Patient discharged home with instructions regarding supportive care, medications, and reasons to return. The importance of close follow-up was reviewed. Impression & Plan Medical Decision Making: Abraham Mancuso is a 77 year old male who presents for evaluation of hematuria. The patient was seen for this at his hospital in [place] on Thursday where they placed a Nava catheter for a short period of CBI and suggested follow-up with urology. He was unable to receive a prompt appointment with urology in [place] so presents here today. The patient has continued to have symptoms intermittentlyand, although he has a follow-up appointment with [facility] scheduled for , came in for further evaluation. The patient is on Xarelto, and this is likely contributing to his bleeding. DDx includes UTI, pyelonephritis, bladder cancer, renal cancer, AVM, inflammatory cystitis, among other causes of gross hematuria. He has no hx of trauma. UA negative for infection. Renal function normal. No anemia. Return if increasing pain, vomiting, fever, or inability to tolerate the oral antibiotic. We discussed the need for close urology follow up as well as possibly holding his Xeralto for now. After discussing the risks and benefits the patient felt that he would prefer to continue Xeralto for now until hediscusses it with urology. Return precautions were discussed with patient. The patient's questions were answered and the patient was agreeable with discharge. Diagnosis: ICD-10-CM 1. Gross hematuria R31.0 Disposition: Discharged to home Berta Santillan 09/19/2017 [facility] IBerta, irma serving as a scribe at 10:52 AM on 09/19/2017 to document services personally performed by Dionte Gloria MD based on my observations and the provider's statements to me. Dionte Gloria MD 09/19/17 1646 CONTROLLER documented in this encounter Plan of Treatment Not on filedocumented as of this encounter Procedures Procedure Name Priority Date/Time Associated Comments Diagnosis US RENAL COMPLETE STAT 09/19/2017 12:16 Result s for this PM WEED CONTROLLER procedure are i n the results section. CBC WITH PLATELETS & STAT 09/19/2017 11:15 Res ults for this DIFFERENTIAL AM WEED CONTROLLER procedure are i n the results section. BASIC METABOLIC PANEL STAT 09/19/2017 11:15 Re sults for this AM WEED CONTROLLER procedure are i n the results section. ROUTINE UA WITH STAT 09/19/2017 10:40 Results for this MICROSCOPIC AM WEED CONTROLLER procedure are i n the results section. documented in this encounter Results US Renal Complete (09/19/2017 12:16 PM WEED CONTROLLER) Anatomical Region Laterality Modality Abdomen/Pelvis Ultrasound Specimen (Source) Anatomical Location Collection Method / Collectio n Time Received Time / Laterality Volume Impressions 09/19/2017 12:48 PM WEED CONTROLLER IMPRESSION: Negative. SCOOTER ZARCO MD Narrative 09/19/2017 12:48 PM WEED CONTROLLER ULTRASOUND RENAL COMPLETE ??09/19/2017 12:16 PM HISTORY: Hematuria. COMPARISON: None. FINDINGS: The right kidney measures 9.3 cm pole-to -pole. No mass or obstruction. The left kidney measures 10.4 cm pole-to -pole. No mass or obstruction. The bladder is partially distended and a ppeared normal. Procedure Note Scooter Zarco MD - 09/19/2017Forma tting of this note might be different from the original. ULTRASOUND RENAL COMPLETE 09/19/2017 12: 16 PM HISTORY: Hematuria. COMPARISON: None. FINDINGS: The right kidney measures 9.3 cm pole-to -pole. No mass or obstruction. The left kidney measures 10.4 cm pole-to -pole. No mass or obstruction. The bladder is partially distended and a ppeared normal. IMPRESSION: Negative. SCOOTER ZARCO MD Dionte Gloria MD IMG US ORDERABLES (ABNORMAL) Basic metabolic panel (09/19/2017 11:15 AM WEED CONTROLLER) P athologist Signature Sodium 137 133 - 144 09/19/2017 [facility] mmol/L 11:50 AM [facility] Potassium 4.0 3.4 - 5.3 09/19/2017 [facility] mmol/L 11:50 AM [facility] Chloride 106 94 - 109 09/19/2017 [facility] mmol/L 11:50 AM [facility] Carbon Dioxide 25 20 - 32 09/19/2017 [facility] mmol/L 11:50 AM [facility] Anion Gap 6 3 - 14 09/19/2017 [facility] mmol/L 11:50 AM [facility] Glucose 107 (H) 70 - 99 09/19/2017 [facility] mg/dL 11:50 AM [facility] Urea Nitrogen 17 7 - 30 09/19/2017 [facility] mg/dL 11:50 AM [facility] Creatinine 0.98 0.66 - 09/19/2017 [facility] 1.25 mg/dL 11:50 AM [facility] GFR Estimate 74 >60 09/19/2017 [facility] mL/min/1.7 11:[address] Comment: Non GFR Calc GFR Estimate If 89 >60 mL/min/1.7m2 09/19/2017 11:50 AM [facility] Comment: GFR Calc Calcium 8.5 8.5 - 10.1 mg/dL 09/19/2017 11:50 AM [facility] Specimen Anatomical Collection Method Collection Time Receive d Time (Source) Location / / Volume Laterality Blood specimen 09/19/2017 11:15 7 (specimen) AM WEED CONTROLLER 11:29 AM WEED CONTROLLER Dionte Gloria MD LAB - BLOOD ORDERABLES Performing Organization Address City/State/ZIP Code Phon e Number [place] [address] [place] [address] [phone] CBC with platelets differential (09/19/2017 11:15 AM [facility] gist Method Time Signature WBC 6.9 4.0 - 09/19/2017 [facility] 11.0 11:33 AM [facility] 10e9/L [facility] RBC Count 4.71 4.4 - 5.9 09/19/2017 [facility] 10e12/L 11:33 AM [facility] Hemoglobin 14.3 13.3 - 09/19/2017 [facility] 17.7 g/dL 11:33 AM [facility] Hematocrit 42.5 40.0 - 09/19/2017 [facility] 53.0 % 11:33 AM [facility] MCV 90 78 - 100 09/19/2017 [facility] fl 11:33 AM [facility] MCH 30.4 26.5 - 09/19/2017 [facility] 33.0 pg 11:33 AM [facility] MCHC 33.6 31.5 - 09/19/2017 [facility] 36.5 g/dL 11:33 AM [facility] RDW 13.4 10.0 - 09/19/2017 [facility] 15.0 % 11:33 AM [facility] Platelet Count 195 150 - 450 09/19/2017 [facility] 10e9/L 11:33 AM [facility] Diff Method Automated 09/19/2017 [facility] Method 11:33 AM [facility] % Neutrophils 74.7 % 09/19/2017 [facility] 11:33 AM [facility] % Lymphocytes 14.5 % 09/19/2017 [facility] 11:33 AM [facility] % Monocytes 7.2 % 09/19/2017 [facility] 11:33 AM [facility] % Eosinophils 2.9 % 09/19/2017 [facility] 11:33 AM [facility] % Basophils 0.3 % 09/19/2017 [facility] 11:33 AM [facility] % Immature 0.4 % 09/19/2017 [facility] Granulocytes 11:33 AM [facility] Nucleated RBCs 0 0 /100 09/19/2017 [facility] 11:33 AM [facility] Absolute 5.2 1.6 - 8.3 09/19/2017 [facility] Neutrophil 10e9/L 11:33 AM [facility] Absolute 1.0 0.8 - 5.3 09/19/2017 [facility] Lymphocytes 10e9/L 11:33 AM [facility] Absolute 0.5 0.0 - 1.3 09/19/2017 [facility] Monocytes 10e9/L 11:33 AM [facility] Absolute 0.2 0.0 - 0.7 09/19/2017 [facility] Eosinophils 10e9/L 11:33 AM [facility] Absolute 0.0 0.0 - 0.2 09/19/2017 [facility] Basophils 10e9/L 11:33 AM [facility] Abs Immature 0.0 0 - 0.4 09/19/2017 [facility] Granulocytes 10e9/L 11:33 AM [facility] Absolute 0.0 09/19/2017 [facility] Nucleated RBC 11:33 AM [facility] Specimen Anatomical Collection Method Collection Time Receive d Time (Source) Location / / Volume Laterality Blood specimen 09/19/2017 11:15 7 (specimen) AM WEED CONTROLLER 11:29 AM WEED CONTROLLER Dionte Gloria MD LAB - BLOOD ORDERABLES Performing Organization Address City/State/ZIP Code Phon e Number [place] [address] [place], [place] [address] [facility] [address] [place], [place] [address], [facility] [phone] (ABNORMAL) UA with Microscopic (09/19/2017 10:40 AM WEED CONTROLLER) [facility] Method Time Signature Color Urine Yellow 09/19/2017 [facility] 11:06 AM [facility] Appearance Urine Slightly 09/19/2017 [facility] Cloudy 11:06 AM [facility] Glucose Urine Negative NEG^Negat 09/19/2017 [facility] emily mg/dL 11:06 AM [facility] Bilirubin Urine Negative NEG^Negat 09/19/2017 [facility] emily 11:06 AM [facility] Ketones Urine Negative NEG^Negat 09/19/2017 [facility] emily mg/dL 11:06 AM [facility] Specific [place] 1.012 1.003 - 09/19/2017 [facility] Urine 1.035 11:06 AM [facility] Blood Urine Large (A) NEG^Negat 09/19/2017 [facility] emily 11:06 AM [facility] pH Urine 6.0 5.0 - 7.0 09/19/2017 [facility] pH 11:06 AM [facility] Protein Albumin Negative NEG^Negat 09/19/2017 [facility] Urine emily mg/dL 11:06 AM [facility] Urobilinogen 0.0 0.0 - 2.0 09/19/2017 [facility] mg/dL mg/dL 11:06 AM [facility] Nitrite Urine Negative NEG^Negat 09/19/2017 [facility] emily 11:06 AM [facility] Leukocyte Negative NEG^Negat 09/19/2017 [facility] Esterase Urine emily 11:06 AM [facility] Source Midstream 09/19/2017 [facility] Urine 10:54 AM [facility] WBC Urine 4 (H) 0 - 2 09/19/2017 [facility] /HPF 11:06 AM [facility] RBC Urine 103 (H) 0 - 2 09/19/2017 [facility] /HPF 11:06 AM [facility] Mucous Urine Present (A) NEG^Negat 09/19/2017 [facility] emily /LPF 11:06 AM [facility] Hyaline Casts 1 0 - 2 09/19/2017 [facility]06 AM [facility] Specimen (Source) Anatomical Collection Method Collection Time Re ceived Time Location / / Volume Laterality Examination of URINE SPECIMEN 09/19/2017 10:40 017 midstream urine OBTAINED BY CLEAN AM WEED CONTROLLER 10:53 A M WEED CONTROLLER specimen CATCH PROCEDURE / (procedure) Unknown Paul Edwards MD LAB - URINE ORDERABLES Performing Organization Address City/State/ZIP Code Phon e Number [place] [address] [place] [address] [facility] [address] [phone] documented in this encounter Visit Diagnoses Diagnosis Gross hematuria documented in this encounter Care Teams Crushing Machine Operator Relationship Specialty Start Date End Date Maikel Brock PCP - General Family Practice 09/19/17 [facility] [address] [place] [id number] documented as of this encounter
--- OUTSIDE RECORDS SUMMARY | 2022-07-31 17:30 | XMS_ITS | Encounter Summary ---
:1940 Author Organization [facility] Address [address] [place] [address] Care Team Providers Name Role Phone Unavailable Primary Care Provider Unavailable Reason for Visit Reason Comments Refill Request Encounter Details Date Type Department Care Team Description 04/21/2012 [facility] Jessie Corral MD Refill Request Medicine [phone] [address] [place], [place] [id number] (Wo rk) Social History Tobacco Use Types Packs/Day Years Used Date Never Assessed Sex Assigned at Date Recorded Not on file documented as of this encounter Plan of Treatment Not on filedocumented as of this encounter Visit Diagnoses Diagnosis Pure hypercholesterolemia documented in this encounter
--- OUTSIDE RECORDS SUMMARY | 2022-07-31 17:30 | XMS_ITS | Encounter Summary ---
:1940 Author Organization [facility] Address [address] [place] [address] Care Team Providers Name Role Phone Unavailable Primary Care Provider Unavailable Encounter Details Date Type Department Care Team Description 02/16/2008 Office Visit-[facility], [facility] [address] [place] [phone] Social History Tobacco Use Types Packs/Day Years Used Date Never Assessed Sex Assigned at Date Recorded Not on file documented as of this encounter Progress Notes Unknown, Provider - 02/16/2008 12:45 PM CDT Server Administrator: Cee Mccann Status: Final Encounter: 16 Feb 2008 Type: Allergy Nurse Note Reason For Visit REBEKAH XIONG is a 67 year old male present today for urticaria and angioedema follow up. Do you have any other appointments of any type today within the [facility] system? (this includes clinic appt's, Imaging, labs, procedures etc.) Yes. Current Meds The medications listed below were reviewed with patient by óscar prior to provider visit on February 16, 2008 at 12:15. Pain Assessment Current history of pain associated with this visit is denied. Smoking Assessment Secondhand cigarette smoke exposure. No tobacco use. Vital Signs Recorded by Daylin Mccann on 16 Feb 2008 12:15 PM BP:131/77, HR: 76 b/min, Height: 69 in, Weight: 201.8 lb, BMI: 29.8 kg/m2. Signature Electronically Signed By: Daylin Mccann RN; 02/16/2008 12:17 PM WAISTBAND SETTER. documented in this encounter Plan of Treatment Not on filedocumented as of this encounter Visit Diagnoses Not on filedocumented in this encounter
--- OUTSIDE RECORDS SUMMARY | 2022-07-31 17:30 | XMS_ITS | Encounter Summary ---
:1940 Author Organization [place] Address [facility] [place] [address] Care Team Providers Name Role Phone Carlos Alberto Corral MD Primary Care Provider Encounter Details Date Type Department Care Team Description 03/06/2014 Historic Results [facility] Heart Unknown, [facility] [address] [place] [address] Social History Tobacco Use Types Packs/Day Years [...] Name Priority Date/Time Associated Diagnosis Comme nts ECHO CARDIAC - HIM SCAN 03/06/2014 12:00 AM CDT - ARCHIVE documented in this encounter Results ECHO CARDIAC - HIM SCAN - ARCHIVE (03/06/2014 12:00 AM CDT) Specimen (Source) Anatomical Location Collection Method / Collectio n Time Received Time / Laterality Volume 03/06/2014 Narrative This result has an attachment that is no t available. Provider Scan CV ECHO ORDERABLES documented in this encounter Visit Diagnoses Not on filedocumented in this encounter Care Teams Needle Loom Setter Relationship Specialty Start Date End Date Carlos Alberto Corral MD PCP - General Internal Medicine 10/15/12 09/18/[address] [address] documented as of this encounter
--- OUTSIDE RECORDS SUMMARY | 2022-07-31 17:30 | XMS_ITS | Encounter Summary ---
:1940 Author Organization [place] Address [address] [place] [address] Care Team Providers Name Role Phone Unavailable Primary Care Provider Unavailable Encounter Details Date Type Department Care Team Description 01/03/2008 Office Visit-[facility] All[facility] Ast[facility] Unknown[facility] [address] [place] [phone] Social History Tobacco Use Types Packs/Day Years Used Date Never Assessed Sex Assigned at Date Recorded Not on file documented as of this encounter Progress Notes Unknown, Provider - 01/03/2008 11:20 AM CDT Log Deckman: Maria Ines Bowens Status: Amended, Unsigned Encounter: 03 Jan 2008 Type: Allergy Nurse Note Reason For Visit Follow up Test results. 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 Allergies Aspirin TABS Other Penicillins Sulfa Drugs Amended By: Maria Ines Bowens ; 01/03/2008 11:22 AM RECEIVING SUPERVISOR. Current Meds The medications listed below were reviewed with patient by Crystal HERRING prior to provider visit on January 03, 2008 at 11:21. Synthroid 125 MCG Tablet;TAKE 1 TABLET DAILY.; RPT Lipitor 10 MG Tablet;TAKE 1 TABLET DAILY.; RPT Fexofenadine HCl 180 MG Tablet;TAKE 1 TABLET DAILY.; Rx Ranitidine HCl 150 MG Tablet;TAKE 1 TABLET EVERY 12 HOURS DAILY.; Rx Doxepin HCl 10 MG Capsule;TAKE 2 CAPSULE BEDTIME; Rx Singulair 10 MG Tablet;TAKE 1 TABLET DAILY.; Rx Prozac 20 MG Capsule;TAKE 1 CAPSULE DAILY.; RPT AAA-MED RECONCILE;per patient; RPT. Pain Assessment Current history of pain associated with this visit is denied. Smoking Assessment No secondhand cigarette smoke exposure. No tobacco use. Vital Signs Recorded by Maria Ines Bowens on 03 Jan 2008 11:20 AM BP:148/81, LUE, Sitting, HR: 66 b/min, L Radial, Height: 69 in, Weight: 200.6 lb, BMI: 29.6 kg/m2, Pain Scale: 0. Signature Signed By: Maria Ines Bowens LEGAL CLERK; 01/03/2008 11:22 AM RECEIVING SUPERVISOR. documented in this encounter Plan of Treatment Not on filedocumented as of this encounter Visit Diagnoses Not on filedocumented in this encounter
--- OUTSIDE RECORDS SUMMARY | 2022-07-31 17:30 | XMS_ITS | Clinical Summary ---
:1940 Author Organization [place] Address [address] [place] [address] Care Team Providers Name Role Phone Maikel Brock Primary Care Provider Allergies Active Allergy Reactions Severity Noted Date Comments Aspirin 11/01/2012 Contrast Dye 11/02/2012 hives Lisinopril 11/01/2012 Penicillins 11/01/2012 Sulfa Drugs 11/01/2012 Medications Medication Sig Dispensed Refills Start Date End Date Status atorvastatin (LIPITOR) 20 TAKE 1 TABLET 90 tablet 0 04/21/2012 Active MG tabletIndications: Pure BY MOUTH hypercholesterolemia EVERY DAY AmLODIPine Besylate Take 5 mg by 0 Active (NORVASC PO) mouth daily. FLUoxetine HCl (PROZAC PO) Take 40 mg by 0 Active mouth daily. Levothyroxine Sodium Take 112 mcg 0 Active (SYNTHROID PO) by mouth daily. metoprolol (TOPROL-XL) 50 Take 1 tablet 30 tablet 1 02/17/2014 Active MG 24 hr tablet (50 mg) by mouth daily SOTALOL HCL, AF, PO 0 Active Rivaroxaban (XARELTO PO) 0 Active tamsulosin (FLOMAX) 0.4 MG Take by mouth 0 Active capsule daily Encounters Date Type Specialty Care Team Description 05/22/2022 Travel from Last 3 Months Social History Tobacco Use Types Packs/Day Years Used Date Former Smoker Quit: 11/02/18 96 Smokeless Tobacco: Never Used Alcohol Use Standard Drinks/Week Comments Yes 28 (1 standard drink = 0.6 oz pure alcoh ol) Sex Assigned at Date Recorded Not on file Last Filed Vital Signs Vital Sign Reading Time Taken Comments Blood Pressure 148/81 09/19/2017 12:54 PM ART GALLERY DIRECTOR Pulse 62 10/23/2017 3:21 PM ART GALLERY DIRECTOR Temperature 36.6 ??C (97.9 ??F) 09/19/2017 9:41 AM ART GALLERY DIRECTOR Respiratory Rate 20 09/19/2017 12:54 PM ART GALLERY DIRECTOR Oxygen Saturation 93% 10/23/2017 3:21 PM ART GALLERY DIRECTOR Inhaled Oxygen Concentration - - Weight 101.6 kg (224 lb) 10/23/2017 3:21 PM ART GALLERY DIRECTOR Height 172.7 cm (5' 8) 10/23/2017 3:21 PM ART GALLERY DIRECTOR Body Mass Index 34.06 10/23/2017 3:21 PM ART GALLERY DIRECTOR Plan of Treatment Health Maintenance Due Date Last Done Comments ADVANCE CARE PLANNING 1940 ANNUAL REVIEW OF HM ORDERS 1940 COVID-19 Vaccine (#1) 1940 DTAP/TDAP/TD IMMUNIZATION 1965 (1 - Tdap) FALL RISK ASSESSMENT 2005 MEDICARE ANNUAL WELLNESS 2005 VISIT ZOSTER IMMUNIZATION (2 of 11/26/2010 10/01/2010 3) Pneumococcal Vaccine: 65+ 08/09/2011 08/09/2010 Years (2 - PCV) PHQ-2 (once per calendar 10/26/2021 year) INFLUENZA VACCINE (#1) 2022 08/30/2017, 08/30/2017, 07/30/2016, Additional history exists HEPATITIS B IMMUNIZATION Aged Out No long er eligible based on patient 's age to complete this topic IPV IMMUNIZATION Aged Out No longer eligi ble based on patient 's age to complete this topic MENINGITIS IMMUNIZATION Aged Out No longe r eligible based on patient 's age to complete this topic Insurance Payer Benefit Plan / Subscriber ID Effective Phone Address T ype Group Dates MEDICARE MEDICARE FOR HB [id number] 2013-Prese [phone] ATTN CLAIMS Medicare SUPPLEMENT nt 40 [address] [place] [address] BCBS BCBS [place] [id number] 2016-Prese [phone] [address] [address] PPO BLUE nt 00 [place] [id number] Advance Directives For more information, please contact: [phone] Documents on File Type Date Recorded Patient Engraving Supervisor Explanati on Advance Directives and 11/07/2012 8:20 AM VALIDAT ION OF Living Will AD-10/09/1999 Advance Directives and 11/07/2012 8:20 AM HEALTH CARE Living Will DIRECTIVE-1998 Care Teams Inside Meter Tester Relationship Specialty Start Date End Date Maikel Brock PCP - General Family Practice 09/19/[address] [address]
--- OUTSIDE RECORDS SUMMARY | 2022-07-31 17:30 | XMS_ITS | Encounter Summary ---
:1940 Author Organization [place] Address [address] [place] [address] Care Team Providers Name Role Phone Unavailable Primary Care Provider Unavailable Encounter Details Date Type Department Care Team Description 01/01/2011 Office Visit-[facility] Patricia Mandel MD [address], [place] [phone] Social History Tobacco Use Types Packs/Day Years Used Date Never Assessed Sex Assigned at Date Recorded Not on file documented as of this encounter Progress Notes Eron Mandel E - 01/01/2011 9:00 AM CST Wood Milling Machine Operator: Eron Mandel Status: Final - Signature Encounter: 01 Jan 2011 Type: Ther Rad Visit FINAL PROBLEM: Adenocarcinoma of prostate, 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 DOSE: The patient was treated definitively with external beam radiation, total dose of 7560 cGy, which was completed on 02/16/2001. SUBJECTIVE: It has been 2 years sincehis last visit. The patient has done very well since then. His AUA score is about 16, but he denies problems with his bowel He had a colonscopy about 3 years ago. .Denies blood in the urine or blood in the bowels. The patient has recently returned from a month in [place] OBJECTIVE: The patient is alert and oriented x3. RECTAL: Prostate is flat and smooth. No nodularities. LABS: PSA is 0.21. in October at his [facility] ASSESSMENT AND PLAN: Mr. Mancuso is now 10 years since completion of radiation and has no evidence ofrecurrent disease at this point. We will see him in follow up in 2 years' time with a PSA at that time. He will also see Dr. Ko Aguirre in 1 year and will alternate years with Dr. Mandel. Thank you for allowing us to take part in the care of this patient. Please contact us with any questions regarding his visit with us today. ERON MANDEL MD Document: [id number] cc: Ko Aguirre MD and Carlos Alberto Corral Electronically signed by:Eron Mandel M.D. Jan 01 2011 9:52AM RETAIL SALES REPRESENTATIVE [place] SALES REPRESENTATIVE documented in this encounter Plan of Treatment Not on filedocumented as of this encounter Visit Diagnoses Not on filedocumented in this encounter
--- OUTSIDE RECORDS SUMMARY | 2022-07-31 17:30 | XMS_ITS | Encounter Summary ---
:1940 Author Organization [place] Address [address] [facility] [place] [address] Care Team Providers Name Role Phone Jordan Morales Primary Care Provider Reason for Visit Reason Comments Cystoscopy gross hematuria Encounter Details Date Type Department Care Team Description 10/23/2017 Office Visit [facility] Henry Gross hematuria Urology Clinic MD Oscar (Primary Dx) [address] [address] [facility] [address] [place], [place] (Work) [address] [phone] Social History Tobacco Use Types Packs/Day Years Used Date Former Smoker Quit: 11/02/18 96 Smokeless Tobacco: Never Used Alcohol Use Standard Drinks/Week Comments Yes 28 (1 standard drink = 0.6 oz pure alcoh ol) Sex Assigned at Date Recorded Not on file documented as of this encounter Last Filed Vital Signs Vital Sign Reading Time Taken Comments Blood Pressure - - Pulse 62 10/23/2017 3:21 PM RESORT HOST Temperature - - Respiratory Rate - - Oxygen Saturation 93% 10/23/2017 3:21 PM RESORT HOST Inhaled Oxygen Concentration - - Weight 101.6 kg (224 lb) 10/23/2017 3:21 PM RESORT HOST Height 172.7 cm (5' 8) 10/23/2017 3:21 PM RESORT HOST Body Mass Index 34.06 10/23/2017 3:21 PM RESORT HOST documented in this encounter Patient Instructions Patient InstructionsCristo Vargas, JEWELRY SALES COORDINATOR - 10/23/2017 3:30 PM CST AFTER YOUR CYSTOSCOPY You have just completed a cystoscopy, or cysto, which allowed your physician to learn more about your bladder (or to remove a stent placed after surgery). We suggest that you continue to avoid caffeine, fruit juice, and alcohol for the next 24 hours, however, you are encouraged to return to your normal activities. A few things that are considered normal after your cystoscopy: * small amount of bleeding (or spotting) that clears within the next 24 hours * slight burning sensation with urination * sensation to of needing to avoid more frequently * the feeling of air in your urine * mild discomfort that is relieved with Tylonol Please contact our office promptly if you: * develop a fever above 101 degrees * are unable to urinate * develop bright red blood that does not stop * severe pain or swelling And of course, please contact our office with any concerns or questions [phone] RT HOST documented in this encounter Progress Notes Henry Vidal MD - 10/23/2017 3:30 PM CST Office Visit Note [facility] UROLOGIC DIAGNOSES: Hematuria, history of prostate cancer CURRENT INTERVENTIONS: Radiotherapy in 2000 HISTORY: This is a 77-year-old gentleman with a history of external beam radiation therapy for prostate cancer in 2000. He was recently evaluated in the urology clinic because he experienced gross hematuria. Hehad a CT scan performed recently that was negative. He currently is experiencing no urinary symptomsor complaints. He takes Xarelto for atrial fibrillation. PAST MEDICAL HISTORY: Past Medical History: Diagnosis Date ??? History of cardioversion ??? History of thrombophlebitis ??? HTN (hypertension) ??? Hypercholesterolemia ??? Hypothyroidism ??? Incomplete bundle branch block ??? Palpitations ??? Prostate cancer (H) LUPRON,RADIATION PAST SURGICAL HISTORY: Past Surgical History: Procedure Laterality Date ??? APPENDECTOMY OPEN ??? CYSTOSCOPY ??? HC HEMORROIDECTOMY, EXTERNAL, SINGLE COLUMN/GROUP ??? LAMINECTOMY LUMBAR ONE LEVEL ??? PROSTATE SURGERY ??? REPAIR PTOSIS BILATERAL 11/02/2012 Procedure: REPAIR PTOSIS BILATERAL; BILATERAL UPPER LID PTOSIS AND MECHANICAL PTOSIS REPAIR ; Surgeon: Devyn Ocampo MD; Location: [facility] ??? TESTICLE SURGERY ??? THYROIDECTOMY ??? VASECTOMY FAMILY HISTORY: History reviewed. No pertinent family history. SOCIAL HISTORY: Social History Substance Use Topics ??? Smoking status: Former Smoker Quit date: 11/02/1995 ??? Smokeless tobacco: Never Used ??? Alcohol use 16.8 oz/week 28 Glasses of wine per week Current Outpatient Prescriptions Medication ??? SOTALOL HCL, AF, PO ??? Rivaroxaban (XARELTO PO) ??? tamsulosin (FLOMAX) 0.4 MG capsule ??? metoprolol (TOPROL-XL) 50 MG 24 hr tablet ??? AmLODIPine Besylate (NORVASC PO) ??? FLUoxetine HCl (PROZAC PO) ??? Levothyroxine Sodium (SYNTHROID PO) ??? atorvastatin (LIPITOR) 20 MG tablet No current facility-administered medications for this visit. PHYSICAL EXAM: Pulse 62 Ht 1.727 m (5' 8) Wt 101.6 kg (224 lb) SpO2 93% BMI 34.06 kg/m2 HEENT: Normocephalic and atraumatic Cardiac: Not done Back/Flank: Not done PUBLIC HEALTH ENGINEER/PNS: Not done Respiratory: Normal non-labored breathing Abdomen: Soft nontender and nondistended Peripheral Vascular: Not done Mental Status: Not done Penis: Normal Scrotal skin: Normal, no lesions Testicles: Normal to palpation bilaterally Epididymis: Normal to palpation bilaterally Lymphatic: Normal inguinal lymph nodes Digital Rectal Exam: Cystoscopy: I performed flexible cystoscopy today and the bladder was normal throughout. No tumors identified throughout the bladder. The prostate showed evidence of prior radiation but otherwise was normal. Imaging: None Urinalysis: UA RESULTS: Recent Labs Lab Test 09/23/17 1617 09/19/17 1040 COLOR Yellow Yellow APPEARANCE Clear Slightly Cloudy URINEGLC Negative Negative URINEBILI Negative Negative URINEKETONE Negative Negative SG 1.015 1.012 UBLD Moderate* Large* URINEPH 6.0 6.0 PROTEIN 100* Negative UROBILINOGEN 0.2 -- NITRITE Negative Negative LEUKEST Negative Negative RBCU -- 103* WBCU -- 4* PSA: 0.06 Post Void Residual: Other labs: None today IMPRESSION: Gross hematuria, history of radiation for prostate cancer PLAN: His CT scan and cystoscopy are both negative. His hematuria was likely from a combination of his Xarelto and his prior history of prostate radiotherapy. He will continue to have his PSA checked annually with his primary care provider. Urine sample was sent for cytology as well. Total Time: 15 minutes Total in Consultation: 10 minutes Henry Vidal M.D. RT HOST documented in this encounter Nursing Notes Cristo Vargas CMA - 10/23/2017 3:30 PM CST Pt still has gross hematuria. Some days worse than others. Prior to the start of the procedure and with procedural staff participation, I verbally confirmed the patient???s identity using two indicators, relevant allergies, that the procedure was appropriate and matched the consent or emergent situation, and that the correct equipment/implants were available. Immediately prior to starting the procedure I conducted the Time Out with the procedural staff and re-confirmed the patient???s name, procedure, and site/side. (The Joint Commission universal protocol was followed.) Yes Sedation (Moderate or Deep): None Pt has signed the consent form stating that we will be doing a CYSTOSCOPY (with or without stent removal) today, and that it is the correct procedure. I verbally confirmed the patient???s identity using two indicators, relevant allergies, and that the correct equipment was available. Post-op information given to the pt as needed at check-out. I have sent an appropriate antibiotic to the pharmacy in our building as recommended by the MD. Darius Vargas CMA RT HOST documented in this encounter Miscellaneous Notes Addendum Note - Cristo Vargas CMA - 10/23/2017 4:09 PM RESORT HOST Addended by: CRISTO VAGRAS on: 10/23/2017 04:09 PM Modules accepted: Orders RT HOST documented in this encounter Plan of Treatment Not on filedocumented as of this encounter Procedures Procedure Name Priority Date/Time Associated Diagnosis Comme nts CYTOLOGY NON LANDSCAPE PAINTER Routine 10/23/2017 4:09 PM Gross hematuria Re sults for this RESORT HOST procedure are i n the results section. documented in this encounter Results Cytology non cryptologist [[id number]] (10/23/2017 4:09 PM RESORT HOST) Component Value Ref Test Analysis Performed At [facility] Range Method Time Signature Copath Report Patient Name: REBEKAH XIONG MR#: [id number] Specimen #: [id number] Collected: 10/23/2017 Received: 10/27/2017 Reported: 10/28/2017 12:57 Ordering Phy(s): HENRY VIDAL Additional Phy(s): JORDAN MORALES For improved result formatting, select 'View Enhanced Report Format' under Linked Documents section. SPECIMEN/STAIN PROCESS: Urine-voided ? Pap-Cyto x 1 ---- CYTOLOGIC INTERPRETATION: Urine-voided: ?? Negative for High-Grade Urothelial Carcinom a. Specimen Adequacy: Satisfactory for evaluation. I have personally reviewed all specimens and/or slides, incl uding the listed special stains, and used them with my medical judgement to determine or confirm the final diagnosis. Electronically signed out by: Jocelyn Hyatt M.D. [facility] CLINICAL HISTORY: , GROSS: Urine-voided: ??Received 20 ml of yellow, clear fluid, proce ssed as 1 Pap stained [employer]. CPT Codes: A: [id number] TESTING LAB LOCATION: [address] ??[address] COLLECTION SITE: Client: ??[facility] Location: ??[place] (R) Specimen (Source) Anatomical Collection Method Collection Time Re ceived Time Location / / Volume Laterality Cytologic 10/23/2017 4:09 10/27/2017 8 :38 material PM RESORT HOST AM RESORT HOST (specimen) Henry Vidal MD LAB - OPTIME CLINICAL SPECIM EN Performing Organization Address City/State/ZIP Code Phon e Number COPATH documented in this encounter Visit Diagnoses Diagnosis Gross hematuria - Primary documented in this encounter Care Teams Farebox Repairer Relationship Specialty Start Date End Date Jordan Morales PCP - General Family Practice 09/19/[address] [address] documented as of this encounter
--- OUTSIDE RECORDS SUMMARY | 2022-07-31 17:30 | XMS_ITS | Encounter Summary ---
:1940 Author Organization [place] Address [address] [place] [address] Care Team Providers Name Role Phone Unavailable Primary Care Provider Unavailable Encounter Details Date Type Department Care Team Description 01/03/2010 Historic Results INTERFACED REPORT Manuel Silvestre MD EMERGENCY PHYSIC MARIA FERNANDA BREWER [facility] [place], [place] [address] (Wo rk) Social History Tobacco Use Types Packs/Day Years Used Date Never Assessed Sex Assigned at Date Recorded Not on file documented as of this encounter Plan of Treatment Not on filedocumented as of this encounter Procedures Procedure Name Priority Date/Time Associated Comments Diagnosis CBC WITH PLATELETS & STAT 01/03/2010 8:50 AM R esults for this DIFFERENTIAL CHEMICALS DISTILLER procedure are i n the results section. TSH WITH FREE T4 STAT 01/03/2010 8:50 AM Resul ts for this REFLEX CHEMICALS DISTILLER procedure are i n the results section. TROPONIN I STAT 01/03/2010 8:50 AM Results f or this CHEMICALS DISTILLER procedure are i n the results section. D DIMER QUANTITATIVE STAT 01/03/2010 8:50 AM R esults for this CHEMICALS DISTILLER procedure are i n the results section. COMPREHENSIVE STAT 01/03/2010 8:50 AM Results for this METABOLIC PANEL CHEMICALS DISTILLER procedure ar e in the results section. documented in this encounter Results (ABNORMAL) CBC with platelets differential (01/03/2010 8:50 AM CHEMICALS DISTILLER) [facility] Method Time Signature MCV 92 78 - 100 [place] fl MCH 30.3 26.5 - MIS[facility] 33.0 pg MCHC 33.1 31.5 - MIS[facility] 36.5 g/dL RDW 14.1 10.0 - MIS[facility] 15.0 % WBC 8.9 4.0 - MISYS 11.0 10e9/L RBC Count 4.61 4.4 - 5.9 MIS[facility] 10e12/L Hemoglobin 14.0 13.3 - MISYS 17.7 g/dL Hematocrit 42.3 40.0 - MISYS 53.0 % % Neutrophils 72 40 - 75 % MISYS % Lymphocytes 19 (L) 20 - 48 % MISYS % Monocytes 6 0 - 12 % MISYS % Eosinophils 2 0 - 6 % MISYS % Basophils 1 0 - 2 % MIS[facility] Platelet Count 233 150 - 450 [facility] 10e9/L Absolute 6.4 1.6 - 8.3 M[facility] Neutrophil 10e9/L Absolute 1.7 0.8 - 5.3 M[facility] Lymphocytes 10e9/L Absolute 0.6 0.0 - 1.3 [facility] Monocytes 10e9/L Absolute 0.2 0.0 - 0.7 M[facility] Eosinophils 10e9/L Absolute 0.1 0.0 - 0.2 [facility] Basophils 10e9/L Diff Method Automated M[facility] Method Specimen Anatomical Collection Method Collection Time Receive d Time (Source) Location / / Volume Laterality 01/03/2010 8:50 AM 0 8:59 CHEMICALS DISTILLER AM CHEMICALS DISTILLER Ciro Silvestre MD LAB - BLOOD ORDERABLES Performing Organization Address City/State/ZIP Code Phon e Number MISYS D dimer quantitative (01/03/2010 8:50 AM CHEMICALS DISTILLER) athologist [facility] D Dimer 0.4 0.0 - 0.50 [place] ug/ml FEU Specimen Anatomical Collection Method Collection Time Receive d Time (Source) Location / / Volume Laterality 01/03/2010 8:50 AM 0 8:59 CHEMICALS DISTILLER AM CHEMICALS DISTILLER Ciro Silvestre MD LAB - BLOOD ORDERABLES Performing Organization Address City/State/ZIP Code Phon e Number [place] (ABNORMAL) Comprehensive metabolic panel (01/03/2010 8:50 AM CHEMICALS DISTILLER) P athologist Signature Sodium 139 133 - 144 [place] mmol/L Potassium 4.6 3.4 - 5.3 [place] mmol/L Chloride 103 94 - 109 [place] mmol/L Carbon Dioxide 25 20 - 32 [place] mmol/L Glucose 134 (H) 60 - 99 [place] mg/dL Urea Nitrogen 22 7 - 30 [place] mg/dL Creatinine 1.13 0.66 - [facility] 1.25 mg/dL Comment: New IDMS-traceable calibration beginning 02/24/08 GFR Estimate 64 >60 mL/min/1.7m2 M[facility] GFR Estimate If [place] 78 >60 mL/min/1.7m2 M ISYS Calcium 8.9 8.5 - 10.4 mg/dL MIS[facility] AST 38 0 - 55 U/L [facility] Protein Total 7.5 6.8 - 8.8 g/dL [facility] Anion Gap 11 6 - 17 mmol/L [facility] Albumin 4.1 3.3 - 4.9 g/dL [facility] ALT 33 0 - 70 U/L [facility] Alkaline Phosphatase 100 40 - 150 U/L [facility] Bilirubin Total 0.9 0.2 - 1.3 mg/dL MIS[facility] Specimen Anatomical Collection Method Collection Time Receive d Time (Source) Location / / Volume Laterality 01/03/2010 8:50 AM 0 8:59 CHEMICALS DISTILLER AM CHEMICALS DISTILLER Ciro Silvestre MD LAB - BLOOD ORDERABLES Performing Organization Address City/State/ZIP Code Phon e Number [place] Troponin I (01/03/2010 8:50 AM CHEMICALS DISTILLER) athologist Signature Troponin I ES 0.029 0.000 - [facility] 0.034 ug/L Specimen Anatomical Collection Method Collection Time Receive d Time (Source) Location / / Volume Laterality 01/03/2010 8:50 AM 0 8:59 CHEMICALS DISTILLER AM CHEMICALS DISTILLER Ciro Silvestre MD LAB - BLOOD ORDERABLES Performing Organization Address City/State/ZIP Code Phon e Number MIS[place] TSH with free T4 reflex (01/03/2010 8:50 AM CHEMICALS DISTILLER) athologist Signature TSH 4.82 0.4 - 5.0 [place] mU/L Specimen Anatomical Collection Method Collection Time Receive d Time (Source) Location / / Volume Laterality 01/03/2010 8:50 AM 0 8:59 CHEMICALS DISTILLER AM CHEMICALS DISTILLER Ciro Silvestre MD LAB - BLOOD ORDERABLES Performing Organization Address City/State/ZIP Code Phon e Number MISYS documented in this encounter Visit Diagnoses Not on filedocumented in this encounter
--- OUTSIDE RECORDS SUMMARY | 2022-07-31 17:30 | XMS_ITS | Encounter Summary ---
:1940 Author Organization [place] Address [address] [place] [address] Care Team Providers Name Role Phone Unavailable Primary Care Provider Unavailable Reason for Visit Reason Onset Date Comments Sinus Problem 10/23/2011 Encounter Details Date Type Department Care Team Description 10/23/2011 Telephone Consultants-Internal Medicine Bobbi Corral, KAYCEE Sinus Problem [address] [place] [address] Social History Tobacco Use Types Packs/Day Years Used Date Never Assessed Sex Assigned at Date Recorded Not on file documented as of this encounter Miscellaneous Notes Telephone Encounter - Jcarlos Diaz - 10/23/2011 3:52 PM CST PATIENT CALLED SAYING HE HAS SEMI-ANNUAL SINUS INFECTION ALONG WITH HEAVY HEAD COLD. ASKING FOR RX FOR Z-KATE AT [facility]. PHONE # IS [phone] LLIGENCE INTERN Telephone Encounter - Jcarlos Diaz - 10/23/2011 3:49 PM CST PATIENT CALLED SAYING HE HAS SEMI-ANNUAL SINUS INFECTION ALONG WITH A HEAVY HEAD COLD INFECTION. HEAVY HEAD COLD, LLIGENCE INTERN documented in this encounter Plan of Treatment Not on filedocumented as of this encounter Visit Diagnoses Diagnosis Acute maxillary sinusitis - Primary documented in this encounter
--- OUTSIDE RECORDS SUMMARY | 2022-07-31 17:30 | XMS_ITS | Encounter Summary ---
:1940 Author Organization [place] Address [address] [facility] [place] [address] Care Team Providers Name Role Phone Carlos Alberto Corral MD Primary Care Provider Reason for Visit (Routine) - Closed Specialty Diagnoses / Procedures Referred By Contact Refer red To Contact Cardiology Diagnoses ECHOCARDIOGRAPHY COMPLETE W/O CONTRAST* Zz Sh Cardiolo gy Img Procedures RADIOLOGY [address] [place] [address] Phone: Referral ID Status Reason Start Date Expiration Date Visits Requ ested Visits Authorized [id number] Closed 03/03/2014 03/03/2015 1 1 Encounter Details Date Type Department Care Team Description 03/06/2014 Hospital Encounter [facility] Suzi Corral MD Radiology - [facility] [place] [address] [place] [address] [place] [address] [phone] Social History Tobacco Use Types Packs/Day Years Used Date Former Smoker Quit: 11/02/18 96 Smokeless Tobacco: Never Used Alcohol Use Standard Drinks/Week Comments Yes 0 (1 standard drink = 0.6 oz pure alcoho l) Sex Assigned at Date Recorded Not on file documented as of this encounter Medications at Time of Discharge Medication Sig Dispensed Refills Start Date End Date AmLODIPine Besylate (NORVASC Take 5 mg by 0 PO) mouth daily. atorvastatin (LIPITOR) 20 MG TAKE 1 TABLET 90 tablet 0 03/27 tabletIndications: Pure BY MOUTH EVERY hypercholesterolemia DAY FLUoxetine HCl (PROZAC PO) Take 40 mg by 0 mouth daily. Levothyroxine Sodium Take 112 mcg by 0 (SYNTHROID PO) mouth daily. metoprolol (TOPROL-XL) 50 MG Take 1 tablet 30 tablet 1 01/25 24 hr tablet (50 mg) by mouth daily HYDROCHLOROTHIAZIDE PO Take 25 mg by 0 09/19/2017 mouth daily documented as of this encounter Plan of Treatment Not on filedocumented as of this encounter Procedures Procedure Name Priority Date/Time Associated Diagnosis Comme nts ECHO COMPLETE WITH Routine 03/06/2014 1:05 PM Res ults for this OPTISON CDT procedure are i n the results section. documented in this encounter Results ECHO COMPLETE WITH OPTISON (03/06/2014 1:05 PM CDT) [facility] Method Time Signature [facility] RADIOLOGY Interpretation Summary RESULTS This was essentially a normal study. The left ventricle is normal in size. Left ventricular sys tolic function is normal. The visual ejection fraction is estimate d at 55-60%. No regional wall motion abnormalities noted. The right ventricle is normal in structure, function and size. PatientHeight: 69 in PatientWeight: 208 lbs SystolicPressure: 132 mmHg DiastolicPressure: 70 mmHg HeartRate: 62 bpm BSA 2.1 m^2 Left Ventricle The left ventricle is normal in size. There is normal left ventricular wall thickness. Left ventricular systolic function is normal. The visual ejection fraction is estimated at 55-60%. No regional wall motion abnormalities noted. Right Ventricle The right ventricle is normal in structure, function and siz e. Atria Normal left atrial size. Right atrial size is normal. Intact atrial septum. Mitral Valve The mitral valve is normal in structure and function. There is trace mitral regurgitation. Tricuspid Valve The tricuspid valve is normal in structure and function. Right ventricular systolic pressure is normal. There is trace tricuspid regurgitation. The right ventricular systolic pressure is approximated at 23 mmHg plus the right atrial pressure. Aortic Valve The aortic valve is normal in structure and function. No aortic regurgitation is present. No aortic stenosis is present. Pulmonic Valve The pulmonic valve is not well seen, but is grossly normal. There is trace pulmonic valvular regurgitation. Vessels Normal size aorta. The IVC is normal in size and reactivity with respirat ion, suggesting normal central venous pressure. Pericardium There is no pericardial effusion. Rhythm The rhythm was normal sinus. Procedure Complete Echo Adult. Contrast Optison. Contrast Definity contrast (1.5mL)/saline (8.5mL) solution used. 5mL wasted. MMode 2D Measurements & Calculations IVSd: 1.2 cm LVIDd: 4.8 cm LVIDs: 3.3 cm LVPWd: 1.1 cm FS: 32 % LV mass(C)d: 200 grams Ao root diam: 4.1 cm LA dimension: 4.5 cm asc Aorta: 3.8 cm LA/Ao: 1.1 Doppler Measurements & Calculations MV E point: 71 cm/sec MV A point: 61 cm/sec MV E/A: 1.1 MV dec time: 0.17 sec PI end-d shiv: 104 cm/sec TR Max shiv: 242 cm/sec TR Max P mmHg Interpreting Physician: ??Devyn Gamez MD [facility] signed on 03-06-2014 17:13:33 Anatomical Region Laterality Modality Echocardiography Specimen (Source) Anatomical Collection Method Collection Time Re ceived Time Location / / Volume Laterality 03/06/2014 1:05 PM CDT Jey Parks MD CV ECHO ORDERABLES documented in this encounter Visit Diagnoses Not on filedocumented in this encounter Care Teams Cement Sprayer Helper Relationship Specialty Start Date End Date Carlos Alberto Corral MD PCP - General Internal Medicine 10/15/12 09/18/[address] [address] documented as of this encounter
--- OUTSIDE RECORDS SUMMARY | 2022-07-31 17:30 | XMS_ITS | Encounter Summary ---
:1940 Author Organization [place] Address [address] [facility] 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 S h Periop Services Procedures REPAIR PTOSIS BILATERAL [address] [place] [address] Phone: Referral ID Status Reason Start Date Expiration Date Visits Requ ested Visits Authorized [id number] Closed 1 1 Encounter Details Date Type Department Care Team Description 11/02/2012 Hospital Encounter [facility] Devyn Ocampo Post -op pain [place] Phase II MD Darren (Primary Dx) [address] O[address]THAL[facility] [place] [address] [address] [phone] [address] [place] [address] Social History Tobacco Use Types Packs/Day Years Used Date Former Smoker Quit: 11/02/18 96 Smokeless Tobacco: Never Used Alcohol Use Standard Drinks/Week Comments Yes 0 (1 standard drink = 0.6 oz pure alcoho l) Sex Assigned at Date Recorded Not on file documented as of this encounter Last Filed Vital Signs Vital Sign Reading Time Taken Comments Blood Pressure 162/86 11/02/2012 11:15 AM MOUNTING INSPECTOR Pulse - - Temperature 36.7 ??C (98.1 ??F) 11/02/2012 8:43 AM MOUNTING INSPECTOR Respiratory Rate 16 11/02/2012 11:15 AM MOUNTING INSPECTOR Oxygen Saturation 97% 11/02/2012 11:15 AM MOUNTING INSPECTOR Inhaled Oxygen Concentration - - Weight 89.8 kg (198 lb) 11/02/2012 8:43 AM MOUNTING INSPECTOR Height 172.7 cm (5' 8) 11/02/2012 8:43 AM MOUNTING INSPECTOR Body Mass Index 30.11 11/02/2012 8:43 AM MOUNTING INSPECTOR documented in this encounter Discharge Instructions Discharge InstructionsToby Marrero RN - 11/02/2012 11:52 AM CST Same Day Surgery Discharge Instructions For Sedation and General Anesthesia 1. It is not unusual to feel light-headed or faint, up to 24 hours after surgery or while taking pain medication. If you have these symptoms; sit for a few minutes before standing and have someone assist you when you get up to walk or use bathroom. 2. You should rest and relax for the next 24 hours and must make arrangements to have someone stay with you for at least 24 hours after your discharge. Avoid hazardous and strenuous activities. 3. DO NOT DRIVE any vehicle or operate mechanical equipment for 24 hours following the end of your surgery. Even though you feel normal, your reactions may be affected by the medication you have received. 4. Do not drink alcoholic beverages for 24 hours following your surgery. 5. Drink clear liquids (apple juice, dharmesh dionisio, broth, 7-up etc.) Progresses to your regular diet as you feel able. 6. Any questions of a medical nature, call your physician. 7. Do not make important decisions for 24 hours. [facility] Eyelid/Orbital Surgery Discharge Instructions Devyn Ocampo M.D. & Robe Martinez M.D. ICE COMPRESSES Immediately following surgery, you should begin to apply ice compresses. Apply a cold gel pack, which can be purchased at your drug store, or wrap a clean washcloth around a cup of crushed ice in a plastic bag (a bag of frozen peas also works well) and hold the cold compresses directly against the closed eyelid (s). Do this at least six times per day for 15 minutes, but not while sleeping. Continue cold compresses for the first three days after surgery, or longer if swelling persists. HOT COMPRESSES Starting on the fourth day following surgery or after your swelling has gone down, hot compresses should be applied. Take a clean washcloth and wring it out in hot water (as warm as you can tolerate comfortably). Hold this warm compress against the closed eyelid(s) six times per day for 15 minutes. This should be continued for about two weeks. OINTMENT You may be given some ointment when you leave the hospital. Apply this ointment to the suture line(s) twice a day. Expect some blurring of vision from the ointment. ACTIVITY Avoid heavy lifting or vigorous exercise for one week after surgery. You may resume regular activities as tolerated. You may shower and wash your hair on the day after surgery; be careful to avoid getting shampoo in your eyes. MEDICATION If the doctor has given you some medications to take after surgery, please take these according to the instructions on the bottle. Pain medications may make you drowsy so do not drive, operate heavy machinery, or use alcohol while taking it. When you feel that you do not need the prescription pain medication, you may substitute Extra Strength Tylenol for mild pain. WHAT TO EXPECT You should expect some slight oozing of blood from the incision site over the first two to three days after surgery. Swelling and bruising will occur for one to two weeks or longer. You may also experience itching and tearing during the first several weeks after surgery. This is part of the normal healing process QUESTIONS Please feel free to contact the office, should you have any questions that are not answered above. The phone number is . Please call immediately if you are unable to establish vision in the operative eye, or if you are experiencing heavy bleeding that will not stop with gentle pressure. TING INSPECTOR documented in this encounter Medications at Time of Discharge Medication Sig Dispensed Refills Start Date End Date AmLODIPine Besylate Take 5 mg by mouth 0 (NORVASC PO) daily. atorvastatin (LIPITOR) 20 TAKE 1 TABLET BY 90 tablet 0 03/27 MG tabletIndications: Pure MOUTH EVERY DAY hypercholesterolemia FLUoxetine HCl (PROZAC PO) Take 40 mg by mouth 0 daily. Levothyroxine Sodium Take 112 mcg by 0 (SYNTHROID PO) mouth daily. HYDROcodone-acetaminophen Take 1 tablet by 10 tablet 0 05/201302/17/2014 5-325 MG per mouth every 6 hours tabletIndications: Post-op as needed for pain. pain Maximum of 4000 mg of acetaminophen in 24 hours. tamsulosin (FLOMAX) 0.4 MG Take 0.4 mg by 0 02/17/2014 24 hr capsule mouth daily. documented as of this encounter H&P Notes Devyn Ocampo MD - 10/29/2012 10:49 AM CST TING INSPECTOR documented in this encounter OR Notes OR Anesthesia - Devyn Ocampo MD - 11/05/2012 1:14 PM CST TING INSPECTOR documented in this encounter Miscellaneous Notes Provider Notification - Susi Díaz RN - 11/02/2012 11:19 AM CST Drainage minimal at this time. TING INSPECTOR Provider Notification - Susi Díaz RN - 11/02/2012 11:[address] Ocampo notified of moderate drainage from right inner canthus, eye pad applied with pressure perDr. Ocampo. TING INSPECTOR Provider Notification - Ally Diaz RN - 11/02/2012 10:58 AM CST Moist ice dressing TING INSPECTOR Provider Notification - Ally Diaz RN - 11/02/2012 10:57 AM CST MOderate bloody drainage from right inner canthus, moist ice pack refreshed TING INSPECTOR Op Note - Devyn Ocampo MD - 11/02/2012 10:50 AM CST Preoperative Diagnosis: Bilateral Upper Eyelid Ptosis Post Operative Diagnosis: Bilateral Upper Eyelid Ptosis and Mechanical Ptosis Operation: Repair: Bilateral Upper Lid Ptosis repair and Mechanical Ptosis repair Anesthesia: Local Monitored Complications: None Indications for surgery: Patient has bilateral upper lid ptosis,obstructing the vision and interfering with daily activities. Patient also has excessive skin overhanging the upper eyelids contributing the visual obstruction. Procedure: The patient was taken to the operating room and the upper eyelid creases were marked witha marking pen. The upper eyelids were injected with 2% Lidocaine along both upper eyelid creases. The patient was prepped and draped in the usual sterile fashion. The planned skin incision was outlinedwith a fine tipped marking pen. The incision was then made along the previously marked area. A moderate amount of skin was excised taking care to allow adequate closure and avoid lagophthalmos. Mary scissors were then used to develop a plane over the septum. The septum was opened and a small amount of orbital fat was removed. Lev ator aponeurosis was then disinserted from the tarsus and a plane was developed between th aponeurosis and the underlying tarsus and ellison's muscle. A 5-0 Mersilene suture was then passed through thetarsus in a lamellar fashion and externalized through the levator aponeurosis. This was tied off in a temporary fashion and the patient was asked to sit up and the eyelids height and contour evaluated.This was repeated until a satisfactory height and contour were obtained,and two additional sutures were placed lateral to the initial suture.This resulted in a normal contour and height to the upper eyelids. Attempted overcorrection of 0.5mm was obtained. The redundant levator aponeurosis was then excised and the skin was then closed with running 6-0 fast absorbing suture. The patient left the operating room in stable condition. TING INSPECTOR documented in this encounter Plan of Treatment Not on filedocumented as of this encounter Procedures Procedure Name Priority Date/Time Associated Diagnosis Comme nts REPAIR, PTOSIS, 11/02/2012 9:26 AM MOUNTING INSPECTOR PTOSIS AND MECH ANICAL BILATERAL PTOSIS OF BILATERAL UPPER LIDS documented in this encounter Visit Diagnoses Diagnosis Post-op pain - Primary Other acute postoperative pain documented in this encounter Administered Medications Inactive Administered Medications - up to 3 most recent administrations Medication Order MAR Action Action Date Dose Rate Site HYDROcodone-acetaminophen 5-325 Given 11/02/2012 11:16 AM MOUNTING INSPECTOR 1 tablet MG per tablet 1 tablet 1 tablet, Oral, EVERY 6 HOURS PRN, moderate to severe pain, Starting on Tu11/02/12 at 1115, PACU documented in this encounter Active and Recently Administered Medications Times are shown in MOUNTING INSPECTOR. PRN Medication Order 10/31/2012 11/01/2012 11/02/2012 erythromycin (ROMYCIN) ophthalmic ointment (CANCELED) 0957 (Given - Provider: Devyn Ocampo MD) PRN, Starting Thu11/02/12 at 0957, Apply within 1 hour of . May be delayed until after first ., Intra-procedure HYDROcodone-acetaminophen 5-325 MG per tablet 1 tablet (CANCELED ) 1116 (Given - Provider: Susi Díaz RN) 1 tablet, Oral, EVERY 6 HOURS PRN, moder ate to severe pain, Starting Thu11/02/12 at 1115, PACU lidocaine 2%-EPINEPHrine 1:200,000 injection (CANCELED) 0957 (Given - Provider: Devyn Ocampo MD)1020 (Given - Provider: Devyn Ocmapo MD) PRN, Starting Thu11/02/12 at 0957, Intra-procedure documented in this encounter Care Teams Marketing Information Coordinator Relationship Specialty Start Date End Date Carlos Alberto Corral MD PCP - General Internal Medicine 10/15/12 09/18/[address] [address] documented as of this encounter
--- OUTSIDE RECORDS SUMMARY | 2022-07-31 17:30 | XMS_ITS | Encounter Summary ---
:1940 Author Organization [place] Address [address] [facility] [place] [address] Care Team Providers Name Role Phone Unavailable Primary Care Provider Unavailable Encounter Details Date Type Department Care Team Description 01/03/2010 Emergency room [facility] Se yarelis Silvestre MD [facility] EMERGENCY MISA PRADO PA Results [address] [place], [place] [address] (Wo rk) Social History Tobacco Use Types Packs/Day Years Used Date Never Assessed Sex Assigned at Date Recorded Not on file documented as of this encounter Progress Notes Dahlia Silvestre - 01/04/2010 5:15 PM CLINICAL TRIAL EDUCATOR FINAL CHIEF COMPLAINT: Rapid heart rate, shortness of breath and lightheadedness. HISTORY OF PRESENT ILLNESS: Rebekah Xiong is a 69-year-old male who comes in by private vehicle after driving himself here because of feeling his heart racing and feeling a little short of breath costa little lightheaded. This all started about 6:30 this morning and [facility] He denies any chest pain, no lower extremity pain or swelling, no fevers, no nausea or vomiting and no abdominal pain. [place] and, in fact, he said a couple of days ago he actually felt a little winded going up some stairs. He has never really had this happen before. PAST MEDICAL HISTORY: 1. Tooth abscess that he is currently being treated for. 2. Prostate cancer. 3. Urticaria. 4. Thyroid surgery with subsequent hypothyroidism. 5. Hypercholesterolemia. 6. Status post appendectomy. MEDICATIONS: Flomax, Avodart, Synthroid, Lipitor and currently clindamycin. ALLERGIES: He tells me no known drug allergies. His chart states sulfa, penicillin and aspirin all of which apparently give him hives. SOCIAL HISTORY: Denies smoking or drug use, drinks daily. REVIEW OF SYSTEMS: See HPI. All others are negative. PHYSICAL EXAMINATION: VITAL SIGNS: He is afebrile, 98.0, blood pressure 113/90, heart rate 163, respiratory rate of 20, satting 100% on 3 liters per nasal cannula. GENERAL: This is a pleasant gentleman who is awake, alert,nontoxic. EYES: Normal. ENT: Normal. NECK: He does have a scar across the anterior neck region. CARDIAC: Tachycardic but regular. I do not appreciate murmurs. RESPIRATORY: Clear to auscultation. GASTROINTESTINAL: Positive bowel sounds, soft, nontender. EXTREMITIES: Atraumatic x4. LYMPHATIC: Normal without any lower extremity edema. NEUROLOGIC: Normal. LABORATORY VALUES AND STUDIES: Initial EKG shows supraventricular tachycardia with heart rate 165 with an incomplete right bundle branch block. Repeat EKG shows normal sinus rhythm, heart rate 98 withan incomplete right bundle branch block but no acute injury pattern. Chest x-ray does not show anything acute. CBC within normal limits. Comprehensive metabolic panel normal, D-dimer 0.4. TSH 4.82. Troponin 0.029. EMERGENCY DEPARTMENT COURSE: The patient was initially brought into the critical care area because of his rapid heart rate. He was connected to cardiac catheterization technologist and pulse oximetry monitor. He had oxygen applied and had an IV established. Bloods were drawn and sent. He had an EKG obtained. This appeared to be SVT. We subsequently did give him a dose of adenosine 6 mg IV push which did convert him to anormal sinus rhythm. He then had a repeat EKG obtained which showed that he was in normal sinus rhythm. He then had a chest x-ray obtained as well which was negative. I did want to rule out hyperthyroidism as a potential cause. Also, pulmonary embolism but with a negative D-dimer, I feel that that hasbeen sufficiently ruled out. I think it is reasonable for him to be discharged home with close follow up with [facility] as well as his own primary doctor, Dr. Carlos Alberto Corral, who I did speak to about this as well. I am arranging for him to have an outpatient stress test as well to make sure he does not have any underlying coronary artery disease and certainly if he has any recurrence, he should return here. IMPRESSION: Supraventricular tachycardia. Electronically signed on 01/04/2010 17:14 by DAHLIA SILVESTRE MD MT: [id number] Name: REBEKAH XIONG MRN: [id number] Account: [id number] : 1940 Visit Date: 01/03/2010 Document: [id number] cc: Carlos Alberto Corral MD [facility] ICAL TRIAL EDUCATOR documented in this encounter Plan of Treatment Not on filedocumented as of this encounter Visit Diagnoses Not on filedocumented in this encounter
--- OUTSIDE RECORDS SUMMARY | 2022-07-31 17:30 | XMS_ITS | Encounter Summary ---
:1940 Author Organization [place] Address [address] [place] [address]. [place] [address] Care Team Providers Name Role Phone Carlos Alberto Corral MD Primary Care Provider Reason for Visit Reason Comments Heart Problem Encounter Details Date Type Department Care Team Description 03/08/[address] [facility] Sleep Terrell Faust [facility] Aniya Rg MD [address] [facility] [place] [address] [address] [address] [place] [address] [place] [address] [phone] Social History Tobacco Use Types Packs/Day Years Used Date Former Smoker Quit: 11/02/18 96 Smokeless Tobacco: Never Used Alcohol Use Standard Drinks/Week Comments Yes 0 (1 standard drink = 0.6 oz pure alcoho l) Sex Assigned at Date Recorded Not on file documented as of this encounter Progress Notes Omar Faust MD - 03/10/2014 11:35 AM CDT Patient with cardiovascular disease, SVT and findings consistent for sleep disordered breathing. Express referral for PSG evaluation by Dr Parks. Will have consultation after PSG in the sleep center. Celena Diop - 03/08/2014 4:59 PM CDT Scan of [facility] heart referral, H&P Dr Parks, 03/03/2014. Route to Dr Faust for his review/order documented in this encounter Miscellaneous Notes Addendum Note - Omar Faust MD - 03/10/2014 11:36 AM CDT Addended by: OMAR FAUST on: 03/10/2014 11:36 AM Modules accepted: Orders, SmartSet documented in this encounter Plan of Treatment Not on filedocumented as of this encounter Visit Diagnoses Diagnosis Sleep disturbance, unspecified - Primary Other malaise and fatigue SVT (supraventricular tachycardia) (H) Other specified cardiac dysrhythmias documented in this encounter Care Teams Machine Stamper Relationship Specialty Start Date End Date Carlos Alberto Corral MD PCP - General Internal Medicine 10/15/12 09/18/[address] [address] documented as of this encounter
--- OUTSIDE RECORDS SUMMARY | 2022-07-31 17:30 | XMS_ITS | Encounter Summary ---
:1940 Author Organization [place] Address [address] [place] [address] Care Team Providers Name Role Phone Unavailable Primary Care Provider Unavailable Encounter Details Date Type Department Care Team Description 01/03/2010 Historic Results INTERFACED REPORT Manuel Silvestre MD EMERGENCY PHYSIC [place] [id number] [place], [place] [address] (Wo rk) Social History Tobacco Use Types Packs/Day Years Used Date Never Assessed Sex Assigned at Date Recorded Not on file documented as of this encounter Plan of Treatment Not on filedocumented as of this encounter Procedures Procedure Name Priority Date/Time Associated Diagnosis Comme nts EKG 12 LEAD Routine 01/03/2010 8:49 AM Results f or this SHEARING MACHINE OPERATOR procedure are i n the results section . documented in this encounter Results EKG 12 LEAD (01/03/2010 8:49 AM SHEARING MACHINE OPERATOR) Component Value Ref Range Test Analysis Performed Pathologis t Method Time At Signature Ventricular Rate 165 BPM RADIOLOGY RESULTS Atrial Rate 166 BPM RADIOLOGY RESULTS QRS Duration 92 ms RADIOLOGY RESULTS QT 282 ms RADIOLOGY RESULTS QTc 467 ms RADIOLOGY RESULTS R AXIS 16 degrees RADIOLOGY RESULTS T [place] 12 degrees RADIOLOGY RESULTS Interpretation Supraventricular tachycardia RADIOLOGY ECG Incomplete right bundle branch block RESULTS Nonspecific ST abnormality Abnormal ECG No previous ECGs available Specimen Anatomical Collection Method Collection Time Receive d Time (Source) Location / / Volume Laterality 01/03/2010 8:49 AM 0 8:59 SHEARING MACHINE OPERATOR AM SHEARING MACHINE OPERATOR Ciro Silvestre MD ECG ORDERABLES Performing Organization Address City/State/ZIP Code Phon e Number RADIOLOGY RESULTS documented in this encounter Visit Diagnoses Not on filedocumented in this encounter
--- OUTSIDE RECORDS SUMMARY | 2022-07-31 17:30 | XMS_ITS | Encounter Summary ---
:1940 Author Organization [place] Address [address] [facility] [place] [address] Care Team Providers Name Role Phone Carlos Alberto Corral MD Primary Care Provider Maikel Brock Primary Care Provider Encounter Details Date Type Department Care Team Description 03/03/2014 Office Visit-[facility] Jey Parks MD [address] [place] [phone] [place] [id number] (Wo rk) Social History Tobacco Use Types Packs/Day Years Used Date Former Smoker Quit: 11/02/18 96 Smokeless Tobacco: Never Used Alcohol Use Standard Drinks/Week Comments Yes 0 (1 standard drink = 0.6 oz pure alcoho l) Sex Assigned at Date Recorded Not on file documented as of this encounter Progress Notes Jey Parks MD - 03/06/2014 2:52 PM CDT Progress Note Created by: Jey Parks M.D. DATE: 03/03/2014 REBEKAH XIONG DATE OF : 1940 AGE: [age] years old Referring Physician: CARLOS ALBERTO CORRAL Referring Clinic: [facility] CURRENT DIAGNOSES 1. - Shortness of Breath, 786.05 2. - Abnormal EKG, 794.31 3. - SVT (supraventricular tachycardia), 427.89 4. Tachycardia, 785.0 ALLERGIES Aspirin, Hives lisinopril Penicillin, Noted as child Sulfonamides, Noted as child MEDICATIONS (prior to changes made today) 1. amlodipine 5 mg tablet, 1 p.o. daily 2. fluoxetine 40 mg capsule, 1 p.o. daily 3. levothyroxine 112 mcg tablet, 1 p.o. daily 4. Lipitor 20 mg tablet, 1 p.o. daily 5. metoprolol succinate 50 mg tablet extended release 24 hr, 1 tab po daily 6. Zyrtec 10 mg capsule, 1 p.o. PRN as Directed CHIEF COMPLAINTS Review test results and Hospital Follow up HISTORY OF PRESENT ILLNESS: I had the pleasure of seeing Mr. Xiong in Cardiology Clinic today at your request for SVT. He is a 73-year-old male. He has a past medical history of hypertension. He has history of SVT that was diagnosed in 11/2009 and was managed and was self-limiting. He has not been on particular therapy for that. About two weeks ago he was having breakfast and after finishing breakfast he developed palpitations and shortness of breath. This was somewhat similar to his episode in 2009 and he decided to go to the emergency room. By the time he got to the emergency room the palpitations had improved and the shortness of breath was also improving. Heart rate was in the 80s, sinus rhythm was confirmed was confirmed, which I reviewed. Subsequently he underwent a Holter monitor examination, which showed multiple runs of SVT particularly at nighttime. The longest one was around 1:30 a.m. for at least 5000 beats. The fastest one was around 146 beats. On average heart rate was 128 to 140. The patient was asymptomatic during that time. He has had no chest pain. He denies any orthopnea, PND or edema. He does have significant fatigue, as well as need for taking naps. He does not snore at night, but does feel like he has not slept well when he wakes up in the morning and has a dry mouth. He has never been evaluated for sleep apnea. His TSH and BMP in the hospital emergency room were normal. His previous stress echocardiogram in 2002 was essentially normal. He was started on metoprolol XL 50 mg in the emergency room, which he is taking without any complaints. PHYSICAL EXAMINATION: Blood pressure 132/70, pulse 60 per minute and regular. Cardiac examination: Regular S1, S2 with no murmurs, S4 was heard. Chest was clear to auscultation. EKG done in the hospital was reviewed with sinus rhythm and no ischemic changes. PAST HISTORY Past Medical Illnesses: hypertension, former smoker, carcinoma of the prostate, hyperthyroidism, hypercholesterolemia Past Cardiac Illnesses: arrhythmia-SVT, Incomplete BBB, palpitations Surgeries/Procedures - General: thyroidectomy, Hemorrhoidectomy, lumbar laminectomy, one level, Bilateral upper lid ptosis and mechanical ptosis repair Cardiology Procedures-NonInvasive: stress echo 2002, myocardial perfusion (Nuc) 2009 PMHx Stress Echo Results: 2002 normal stress echo Nuclear Results: Nuc 2009 no ischemia LVEF not documented FAMILY HISTORY: Family - unknown health history; Father - Age 72, unknown health history; Mother - Age 81, unknown health history; Brother 1 - unknown health history; Sister 1 - unknown health history; SOCIAL HISTORY Alcohol Use - mixed drinks and 2 per week; Smoking - used to smoke but quit, 1995 and 08/27 ppd x 31 years; Diet - regular diet without modifications; Lifestyle - , children and 3; Exercise - exercises regularly, elyptical sports athletic trainer, walking and 3-4 x week; REVIEW OF SYSTEMS GENERAL denies recent weight loss, weight gain, fever or chills or change in exercise tolerance. INTEGUMENTARY denies any change in hair or nails, rashes, or skin lesions. EYES wears eye glasses/contact lenses EARS, NOSE, THROAT, MOUTH partial hearing loss both ears RESPIRATORY dyspnea with exertion CARDIOVASCULAR palpitations ABDOMINAL denies ulcer disease, hematochezia or melena. MUSCULOSKELETAL arthritis of the neck NEUROLOGICAL denies any history of recurrent strokes, headaches, TIA, or seizure disorder. PSYCHIATRIC anxiety controlled with medication, depression controlled with medication ENDOCRINE hypothyroidism HEMATOLOGICAL/IMMUNOLOGIC seasonal allergies PHYSICAL EXAMINATION VITAL SIGNS: Blood Pressure: 132/70Sitting, Left arm, large cuff Pulse- 60.00/min. Weight- 208.00 lbs. Height- 69 BMI Measurement: 30 CONSTITUTIONAL cooperative, alert and oriented,well developed, well nourished, in no acute distress. SKIN warm and dry to touch, no apparent skin lesions, or masses noted. HEAD normocephalic, atraumatic EYES Pupils equal and round, conjunctivae and lids unremarkable, sclera white, no xanthalasma ENT no pallor or cyanosis, dentition good NECK carotid pulses are full and equal bilaterally, JVP normal, no carotid bruit, no thyromegaly CHEST clear to auscultation CARDIAC S1 normal, S2 normal, S4, no murmurs ABDOMEN abdomen soft, bowel sounds normoactive, no masses, no hepatosplenomegaly, non- tender, no bruits PERIPHERAL PULSES pulses full and equal in all extremities, no bruits auscultated. EXTREMITIES & BACK no clubbing, cyanosis or edema NEUROLOGICAL no gross motor deficits noted, affect appropriate, oriented to time, person and place. MEDICATIONS UPDATED/STARTED TODAY: amlodipine 5 mg tablet, 1 p.o. daily, #0 (Zero) fluoxetine 40 mg capsule, 1 p.o. daily, #0 (Zero) levothyroxine 112 mcg tablet, 1 p.o. daily, #0 (Zero) Lipitor 20 mg tablet, 1 p.o. daily, #0 (Zero) metoprolol succinate 50 mg tablet extended release 24 hr, 1 tab po daily Zyrtec 10 mg capsule, 1 p.o. PRN as Directed, #0 (Zero) MEDICATIONS REFILLED/STOPPED TODAY: Avodart 0.5 mg Capsule 1 p.o. daily #0 Physician Order, Flomax 0.4 Mg Capsule, Sust. Release 24 Hr 1p.o. daily DIRECTED Physician Order, Lipitor 10 Mg Tablet 1 p.o. daily DIRECTED Physician Order, metoprolol tartrate 50 mg tablet 1 p.o. daily #0 (Zero) Physician Order, metoprolol tartrate 50 mgtablet 1 p.o. twice daily #0 (Zero) Physician Order, Prozac 20 mg Capsule 1 p.o. daily #0 Physician Order and Synthroid 125 mcg Tablet 1 p.o. daily 0 Physician Order IMPRESSION: History of symptomatic SVT. He had a recent episode that was self- limiting before he reached the emergency room, but the Holter monitor shows several episodes of SVT. This could represent atrial tachycardia. He is on metoprolol and has not had much symptoms since then. I would like to do an echocardiogram to make sure there is no evidence of structural heart disease. We will refer him to a patient financial advocate to see if medical therapy with metoprolol is reasonable or to consider antiarrhythmic therapy or ablation. He will also be referred to a sleep apnea clinic for sleep study. I suspect he has sleep apnea and particularly his arrhythmias are at nighttime, which may be related to that. He may also eventually need a stress test down the road and especially if we are going to consider starting antiarrhythmic therapy like class 1 agents. PLAN: 1. Electrophysiology consult. 2. Continue metoprolol. 3. Sleep study and echocardiogram. 4. See me in two months. TODAYS ORDERS 1. 2D, color flow, doppler 1 week 2. F/U with Any EP PREDATORY ANIMAL TRAPPER/PA 4-7 days, Aliya Raygoza, Marybel Ahumada, Cookie Bragg ONLY 3. Sleep Consult Schedule At [facility] Jey Parks M.D. documented in this encounter Plan of Treatment Not on filedocumented as of this encounter Visit Diagnoses Not on filedocumented in this encounter Care Teams Yarn Polishing Machine Operator Relationship Specialty Start Date End Date Carlos Alberto Corral MD PCP - General Internal Medicine 10/15/12 09/18/[address] [address] Maikel Brock PCP - General Family Practice 09/19/[address] [address] documented as of this encounter
--- OUTSIDE RECORDS SUMMARY | 2022-07-31 17:30 | XMS_ITS | Encounter Summary ---
:1940 Author Organization [place] Address [address] [facility] [place] [address] Care Team Providers Name Role Phone Maikel Brock Primary Care Provider Reason for Visit (Routine) - Closed Specialty Diagnoses / Procedures Referred By Contact Refer red To Contact Radiology / Radiology. Diagnoses EPIC order, sb Marcy [id number] Rh Ct Scan [facility] [place] [address] [address] [place] [address] Phone: Fax: Referral ID Status Reason Start Date Expiration Date Visits Requ ested Visits Authorized [id number] Closed 09/29/2017 09/29/2018 1 1 Encounter Details Date Type Department Care Team Description 10/21/2017 Hospital Encounter [facility] Racquel Diaz, Gross hematuria [facility]-C [address] [facility] [address] [place], [place] [phone] Social History Tobacco Use Types Packs/Day Years [...] capsule daily documented as of this encounter Plan of Treatment Not on filedocumented as of this encounter Procedures Procedure Name Priority Date/Time Associated Diagnosis Comme nts CT ABDOMEN PELVIS Routine 10/21/2017 3:47 PM Gross hematuria R esults for this W/O CONTRAST CLIP COATER procedure are i n the results section. documented in this encounter Results CT Abdomen Pelvis w/o Contrast (10/21/2017 3:47 PM CLIP COATER) Anatomical Region Laterality Modality Abdomen/Pelvis, SUBRAD CT BODY, UMP CT ABDOMEN PELVIS, Computed Tomography RAD CT Specimen (Source) Anatomical Location Collection Method / Collectio n Time Received Time / Laterality Volume Impressions 10/22/2017 7:56 AM CLIP COATER IMPRESSION: No urinary tract calculi or hydronephrosis. Prostate gland is not enlarged but a few prostatic calc ifications are present. Follow-up as clinically warranted. MEGA WLISON MD Narrative 10/22/2017 7:[address] ABDOMEN AND PELVIS WITHOUT CONTRAST 10/21/2017 3:47 PM HISTORY: Gross hematuria. TECHNIQUE: Axial images are obtained fro m the lung bases to the symphysis without oral or IV contrast. C oronal reformatted images are also generated. ??Radiation dose for thi s scan was reduced using automated exposure control, adjustment o f the mA and/or kV according to patient size, or iterative reconstruc tion technique. FINDINGS: ??The lung bases are clear. Abdomen: No urinary tract calculi or hyd ronephrosis. The liver, spleen, gallbladder, pancreas and right adrenal gland are unremarkable. Left adrenal nodule on ser ies 2, image 21 measures less than 10 Hounsfield units most consistent with a benign adenoma. This measures 1.5 cm in diameter. No enlarged lymph nodes. The bowel is normal in caliber without obstruction or diverticulitis. Appendix is normal. Pelvis: The bladder, prostate and rectum are unremarkable. No enlarged pelvic lymph nodes or free fluid. Bone w indow examination demonstrates degenerative spine changes. No aggressiv e appearing bone lesions are noted. Procedure Note Mega Wilson MD - 10/22/2017Form atting of this note might be different from the original. CT ABDOMEN AND PELVIS WITHOUT CONTRAST 1 12/22/2016 3:47 PM HISTORY: Gross hematuria. TECHNIQUE: Axial images are obtained fro m the lung bases to the symphysis without oral or IV contrast. C oronal reformatted images are also generated. Radiation dose for this scan was reduced using automated exposure control, adjustment o f the mA and/or kV according to patient size, or iterative reconstruc tion technique. FINDINGS: The lung bases are clear. Abdomen: No urinary tract calculi or hyd ronephrosis. The liver, spleen, gallbladder, pancreas and right adrenal gland are unremarkable. Left adrenal nodule on ser ies 2, image 21 measures less than 10 Hounsfield units most consistent with a benign adenoma. This measures 1.5 cm in diameter. No enlarged lymph nodes. The bowel is normal in caliber without obstruction or diverticulitis. Appendix is normal. Pelvis: The bladder, prostate and rectum are unremarkable. No enlarged pelvic lymph nodes or free fluid. Bone w indow examination demonstrates degenerative spine changes. No aggressiv e appearing bone lesions are noted. IMPRESSION: No urinary tract calculi or hydronephrosis. Prostate gland is not enlarged but a few prostatic calc ifications are present. Follow-up as clinically warranted. MEGA WILSON MD Racquel Diaz PA-C IMG CT ORDERABLES documented in this encounter Visit Diagnoses Diagnosis Gross hematuria documented in this encounter Care Teams Drier Attendant Relationship Specialty Start Date End Date Maikel Brock PCP - General Family Practice 09/19/[address] [address] documented as of this encounter
--- OUTSIDE RECORDS SUMMARY | 2022-07-31 17:30 | XMS_ITS | Encounter Summary ---
:1940 Author Organization [place] Address [address] [place] [address] Care Team Providers Name Role Phone Unavailable Primary Care Provider Unavailable Encounter Details Date Type Department Care Team Description 06/21/2008 Office Visit-[facility] Allergy and Asthma Provider, [facility] [address] [place] [phone] Social History Tobacco Use Types Packs/Day Years Used Date Never Assessed Sex Assigned at Date Recorded Not on file documented as of this encounter Progress Notes Provider, [facility] Nurse - 06/21/2008 1:02 PM CDT Program Coordinator Executive Education: Negra Nur Status: Signed Encounter: 21 Jun 2008 Type: Allergy Chart Note Pt pharmacy requesting enrique for pt. Dr Shay informed see new scanned orders. Rx faxed to [facility] Electronically signed by:Negra Nur RN Jun 21 2008 5:02PM REDUCING SALON ATTENDANT Provider, [facility] Nurse - 06/21/2008 1:02 PM CDT Program Coordinator Executive Education: Negra Nur Status: Signed Encounter: 21 Jun 2008 Type: Allergy Chart Note Pt pharmacy requesting refill on fexofenadine. Med was discontinued at last appt as was all other meds for urticaria. Dr Shay infomred no new orders. Denied refill pt to call if having problems pharmacy notified Electronically signed by:Negra Nur RN Jun 21 2008 1:04PM REDUCING SALON ATTENDANT documented in this encounter Plan of Treatment Not on filedocumented as of this encounter Visit Diagnoses Not on filedocumented in this encounter
--- OUTSIDE RECORDS SUMMARY | 2022-07-31 17:30 | XMS_ITS | Encounter Summary ---
:1940 Author Organization [place] Address [facility] [place] [address] Care Team Providers Name Role Phone Unavailable Primary Care Provider Unavailable Encounter Details Date Type Department Care Team Description 01/03/2010 Results Only [facility] Se yarelis Silvestre MD [facility] EMERGENCY MISA PRADO PA Results [address] [place], [place] [address] (Wo rk) Social History Tobacco Use Types Packs/Day Years Used Date Never Assessed Sex Assigned at Date Recorded Not on file documented as of this encounter Plan of Treatment Not on filedocumented as of this encounter Procedures Procedure Name Priority Date/Time Associated Diagnosis Comme nts HC CHEST TWO VIEWS, Routine 01/03/2010 9:31 AM Re sults for this FRONT/LAT HEAD CONCIERGE procedure are i n the results section. documented in this encounter Results CHEST X-RAY 2 VW (01/03/2010 9:31 AM HEAD CONCIERGE) Specimen (Source) Anatomical Collection Method Collection Time Re ceived Time Location / / Volume Laterality 01/03/2010 9:31 AM HEAD CONCIERGE Impressions RADIOLOGY RESULTS - 01/07/2010 2:51 AM C DT CHEST TWO VIEW January 03, 2010 9:31:00 AM HISTORY: Chest pain. COMPARISON: None. FINDINGS: No evidence for acute disease. Ciro Silvestre MD GENERAL IMAGING Performing Organization Address City/State/ZIP Code Phon e Number RADIOLOGY RESULTS documented in this encounter Visit Diagnoses Not on filedocumented in this encounter
--- OUTSIDE RECORDS SUMMARY | 2022-07-31 17:30 | XMS_ITS | Encounter Summary ---
:1940 Author Organization [place] Address [address] [place] [address] Care Team Providers Name Role Phone Carlos Alberto Corral MD Primary Care Provider Reason for Visit Auth/Cert - Closed Specialty Diagnoses / Procedures Referred By Contact Refer red To Contact Surgery Diagnoses PTOSIS AND MECHANICAL PTOSIS OF BILATERAL UPPER LIDS S h Periop Services Procedures REPAIR PTOSIS BILATERAL [address] [place] [phone] Phone: Referral ID Status Reason Start Date Expiration Date Visits Requ ested Visits Authorized [id number] Closed 1 1 Encounter Details Date Type Department Care Team Description 11/02/2012 Surgery [facility] Devyn Ocampo B ILATERAL UPPER LID [place] [facility] PTOSIS AND MECHANICAL [place] OPHTHALMIC PLAST PTOSIS REPAIR [address] SUR[address] [place] [address] [address] [place] [address] (Wo rk) Surgery Details Date/Time Status Location OR Service Patient Case Case Traum a Class Class Type Case? 11/02/12 9:15 Posted Z SH SD SD 20 Ophthalmology Same Day AM Surgery Panel 1 Procedure LRB Anes Op Region Wound Class Commen ts BILATERAL UPPER LID Bilateral MAC Eye I-Clean BILAT ERAL UPPER LID PTOSIS AND MECHANICAL PTO SIS AND MECHANICAL PTOSIS REPAIR PTOSIS REPA IR Surgeon Surgeon Role Service Panel Devyn Ocampo MD Primary Ophthalmology 1 documented in this encounter Social History Tobacco [...] Comments Blood Pressure 162/86 11/02/2012 11:15 AM FIRE ENGINE PUMP OPERATOR Pulse - - Temperature 36.7 ??C (98.1 ??F) 11/02/2012 8:43 AM FIRE ENGINE PUMP OPERATOR Respiratory Rate 16 11/02/2012 11:15 AM FIRE ENGINE PUMP OPERATOR Oxygen Saturation 97% 11/02/2012 11:15 AM FIRE ENGINE PUMP OPERATOR Inhaled Oxygen Concentration - - Weight 89.8 kg (198 lb) 11/02/2012 8:43 AM FIRE ENGINE PUMP OPERATOR Height 172.7 cm (5' 8) 11/02/2012 8:43 AM FIRE ENGINE PUMP OPERATOR Body Mass Index 30.11 11/02/2012 8:43 AM FIRE ENGINE PUMP OPERATOR documented in this encounter Discharge Instructions Discharge [...] not make important decisions for 24 hours. [facility] Eyelid/Orbital Surgery Discharge Instructions Devyn Ocampo [...] that will not stop with gentle pressure. ENGINE PUMP OPERATOR documented in this encounter Medications at Time [...] Ocampo MD - 10/29/2012 10:49 AM CST ENGINE PUMP OPERATOR documented in this encounter OR Notes OR Anesthesia - Devyn Ocampo MD - 11/05/2012 1:14 PM CST ENGINE PUMP OPERATOR documented in this encounter Miscellaneous Notes Provider Notification - Susi Díaz RN - 11/02/2012 11:19 AM CST Drainage minimal at this time. ENGINE PUMP OPERATOR Provider Notification - Susi Díaz RN - 11/02/2012 11:[address] Ocampo notified of moderate drainage from right inner canthus, eye pad applied with pressure perDr. Ocampo. ENGINE PUMP OPERATOR Provider Notification - Ally Diaz RN - 11/02/2012 10:58 AM CST Moist ice dressing ENGINE PUMP OPERATOR Provider Notification - Ally Diaz RN - 11/02/2012 10:57 AM CST MOderate bloody drainage from right inner canthus, moist ice pack refreshed ENGINE PUMP OPERATOR Op Note - Devyn Ocampo MD - [...] left the operating room in stable condition. ENGINE PUMP OPERATOR documented in this encounter Plan of Treatment Not on filedocumented as of this encounter Procedures Procedure Name Priority Date/Time Associated Diagnosis Comme nts REPAIR, PTOSIS, 11/02/2012 9:26 AM FIRE ENGINE PUMP OPERATOR PTOSIS AND [facility] ANICAL BILATERAL PTOSIS OF BILATERAL UPPER LIDS documented in this encounter Visit Diagnoses Not on filedocumented in this encounter Administered Medications Inactive Administered Medications - up to 3 most recent administrations Medication Order MAR Action Action Date Dose Rate Site erythromycin (ROMYCIN) Given 11/02/2012 9:57 AM 1 g Operative ophthalmic ointment FIRE ENGINE PUMP OPERATOR Site/Surgical S ite PRN, Starting on Thu11/02/12 at 0957, Apply within 1 hour of . May be delayed until after first ., Intra-procedure HYDROcodone-acetaminophen 5-325 MG per Given 11/02/2012 11:16 AM FIRE ENGINE PUMP OPERATOR 1 tablet tablet 1 tablet 1 tablet, Oral, EVERY 6 HOURS PRN, moderate to severe pain, Starting on Thu11/02/12 at 1115, PACU lidocaine 2%-EPINEPHrine Given 11/02/2012 10:20 AM 5 mLs Operative Site/Surgical 1:200,000 injection FIRE ENGINE PUMP OPERATOR Site PRN, Starting on Thu11/02/12 at 0957, Intra-procedure Given 11/02/2012 9:57 AM FIRE ENGINE PUMP OPERATOR 6 mLs Opera tive Site/Surgical Site documented in this encounter Active and Recently Administered Medications Times are shown in FIRE ENGINE PUMP OPERATOR. PRN Medication Order 10/31/2012 11/01/2012 11/02/2012 erythromycin [...] Devyn Ocampo MD)1020 (Given - Provider: Devyn Ocampo MD) PRN, Starting 11/02/12 at 0957, Intra-procedure documented in this encounter Care Teams Wax Pattern Assembler Relationship Specialty Start Date End Date Carlos Alberto Corral MD PCP - General Internal Medicine 10/15/12 09/18/[address] [address] documented as of this encounter
--- OUTSIDE RECORDS SUMMARY | 2022-07-31 17:30 | XMS_ITS | Encounter Summary ---
:1940 Author Organization [place] Address [facility] [place] [address] Care Team Providers Name Role Phone Carlos Alberto Corral MD Primary Care Provider Maikel Brock Primary Care Provider Encounter Details Date Type Department Care Team Description 03/10/2014 Office Visit-[facility] Rafi Jarvis MD [address] [address] [place] [id number] [phone] Social History Tobacco Use Types Packs/Day Years Used Date Former Smoker Quit: 11/02/18 96 Smokeless Tobacco: Never Used Alcohol Use Standard Drinks/Week Comments Yes 0 (1 standard drink = 0.6 oz pure alcoho l) Sex Assigned at Date Recorded Not on file documented as of this encounter Progress Notes Tyrell Jarvis MD - 03/14/2014 12:32 PM CDT Progress Note Created by: Tyrell Jarvis M.D. [id number] DATE: 03/10/2014 REBEKAH XIONG DATE OF : 1940 AGE: [age] years old Referring Physician: CARLOS ALBERTO CORRAL Referring Clinic: [facility] CURRENT DIAGNOSES 1. - SVT (supraventricular tachycardia), 427.89 2. Hypothyroidism, 244.9 3. - Hypertension, 401.1 4. Tachycardia, 785.0 5. - Shortness of Breath, 786.05 6. - Abnormal EKG, 794.31 ALLERGIES ? tremors, no rash, no dry cough, no lip swelling, probably not trul Aspirin, Hives lisinopril Penicillin, Noted as child [...] 1 p.o. PRN as Directed CHIEF COMPLAINTS HISTORY OF PRESENT ILLNESS Thank you for allowing me to participate in the care of this delightful patient. As you know, Mr. Xiong is a delightful 73-year-old gentleman, previously healthy, who was in the ER a couple of years ago for new onset of palpitations due to SVT that was adenosine sensitive. Unfortunately, I do not have the EKG from that time for review. The patient subsequently did have a stress test done at that time as part of the evaluation and it was unremarkable. Recently he had an episode of palpitations but less intense compared to a couple of years ago. By the time he went to the ER it had subsided already.He subsequently saw my partner, Dr. Parks, who had him on metoprolol. The patient also was recommended to wear a 24-hour Holter monitoring. The patient was just taking beta-dwain at that time. The Holter demonstrated occasional PACs and some PVCs, and also many runs of what appeared to be paroxysmal atrial tachycardia in the middle of the night when he was sleeping. The rate varies from 110-130 beats per minute. In light of that, he was asked to see me for further evaluation. Aside from these two episodes the patient has not had any more episodes requiring him to make ER visits. Interestingly, he said he has a sister who was also told to have SVT and underwent an ablation. He otherwise denies any chest pain, chest discomfort, orthopnea, or PND. On examination, it appears the examination was unremarkable. Baseline EKG demonstrated sinus rhythm without any evidence of ventricular preexcitation. PAST HISTORY Past Medical Illnesses: hypertension, former smoker, carcinoma of the prostate, hyperthyroidism, hypercholesterolemia Past Cardiac Illnesses: arrhythmia-SVT, Incomplete BBB, palpitations Surgeries/Procedures - General: thyroidectomy, Hemorrhoidectomy, lumbar laminectomy, one level, Bilateral upper lid ptosis and mechanical ptosis repair Cardiology Procedures-NonInvasive: stress echo 2002, myocardial perfusion (Nuc) 2009, echocardiogram February 2014 PMHx Echo Results: February 2014 normal echo study Left Ventricular Ejection Fraction: EF<GT>55% by Echo -February 2014 Nuclear Results: Nuc 2009 no ischemia EF<GT>55% by Echo -February 2014 PHYSICAL EXAMINATION VITAL SIGNS: Blood Pressure: 150/70Sitting, Left arm, regular cuff Pulse- 60.00/min. Weight- 209.00 lbs. Height- 69 BMI Measurement: 31 CONSTITUTIONAL cooperative, alert and oriented,well developed, well [...] time, person and place. MEDICATIONS UPDATED/STARTED TODAY: IMPRESSIONS/PLAN IMPRESSION/RECOMMENDATIONS: Mr. Xiong is a delightful 73-year-old gentleman with a history of PSVT with two episodes over the past couple of years. He was noted to have some episodes at night when he was sleeping as documented on Holter monitoring. I went over the benign prognosis of this adenosine-sensitive SVT. However, there have been case reports of SVT-induced cardiomyopathy, especially if there are no symptoms, but clearly the patient did have symptoms. Therefore, the risk is quite low. I discussed the option of medical therapy versus ablation. As he just started on metoprolol the patient would like to continue this for now. But obviously if he has more episodes in the future, I think ablation is a very reasonable option. I did go over Valsalva maneuvers for the patient as well. He will continue to follow with Dr. Parks and see me should arrhythmia issues arise in the future. TODAYS ORDERS Tyrell Jarvis M.D. documented in this encounter Plan of Treatment Not on filedocumented as of this encounter Visit Diagnoses Not on filedocumented in this encounter Care Teams Visual And Stock Associate Relationship Specialty Start Date End Date Carlos Alberto Corral MD PCP - General Internal Medicine 10/15/12 09/18/[address] [address] Maikel Brock PCP - General Family Practice 09/19/[address] [address] documented as of this encounter
--- OUTSIDE RECORDS SUMMARY | 2022-07-31 17:30 | XMS_ITS | Encounter Summary ---
:1940 Author Organization [place] Address [facility] [place] [address] Care Team Providers Name Role Phone Carlos Alberto Corral MD Primary Care Provider Reason for Visit Reason Comments Tachycardia history afib, states feels l radames hr is fast, sob, shaky Encounter Details Date Type Department Care Team Description 02/17/2014 [facility] Farida Branham, Hyp ertension (Primary Dx); [facility] [address] [place] [address] [place] [phone] [address] [place], [place] [id number] (Wo rk) Social History Tobacco Use Types Packs/Day Years Used Date Former Smoker Quit: 11/02/18 96 Smokeless Tobacco: Never Used Alcohol Use Standard Drinks/Week Comments Yes 0 (1 standard drink = 0.6 oz pure alcoho l) Sex Assigned at Date Recorded Not on file documented as of this encounter Last Filed Vital Signs Vital Sign Reading Time Taken Comments Blood Pressure 156/94 02/17/2014 3:48 PM CDT Pulse 74 02/17/2014 3:48 PM CDT Temperature 36.8 ??C (98.3 ??F) 02/17/2014 11:16 AM CDT Respiratory Rate 16 02/17/2014 3:48 PM CDT Oxygen Saturation 98% 02/17/2014 3:48 PM CDT Inhaled Oxygen Concentration - - Weight 93.9 kg (207 lb) 02/17/2014 11:16 AM CDT Height 175.3 cm (5' 9.02) 02/17/2014 11:16 AM CDT Body Mass Index 30.55 02/17/2014 11:16 AM CDT documented in this encounter Discharge Instructions Discharge InstructionsFarida Branham MD - 02/17/2014 3:03 PM CDT You can stay on the Hydrochlorothiazide. AttachmentsThe following attachments cannot be sent through Care Everywhere. HYPERTENSION, ESTABLISHED, OUT OF CONTROL (JAPANESE)documented in this encounter Medications at Time of [...] mouth daily documented as of this encounter ED Notes Maria G De Souza RN - 02/17/2014 3:25 PM CDT EKG at bedside for Holter monitor set-up. Farida Branham MD - 02/17/2014 11:22 AM CDT History Chief Complaint: Heart Racing HPI Abraham Mancuso is a 73 year old male, with a history of SVT and hypertension, who presents with heart racing. The patient reports that after eating breakfast this morning he began to experience rapidheart rate with associated mild shortness of breath. He checked his pulse, which he found to be 90 and then 91 on recheck. These symptoms lasted for about an hour before resolving spontaneously. As hissymptoms felt similar to those he experienced with SVT in 2009 he decided to come into the ED for evaluation of his symptoms. The patient notes that he underwent chemical cardioversion for the treatment of the SVT in 2009, and he has not experienced a repeat episode of SVT since that time. He states that he has been having recent problems with poorly controlled high blood pressure over the past month. He states that he has been on Amlodipine for many years, and Hydrochlorothiazide was started in addition to this on 02/04/2014. The patient's blood pressure has been 140-150 systolic consistently, andhe has a blood pressure cuff at home. 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 The patient denies chest pain, leg swelling, cough, fevers, loss of consciousness, or any other physical concerns today. Cardiac Risk Factors Sex: M Tobacco: Former Hypertension: Y Diabetes: Y Lipids: Y Family History: N PE/DVT Risk Factors Recent Travel: N Recent Surgery: N Tobacco: Former Family History: N Cancer: N Trauma: N Allergies: Aspirin Contrast dye Lisinopril Penicillins Sulfa drugs Medications: Hydrochlorothiazide Norvasc Prozac Levothyroxine Lipitor Past Medical History: Prostate cancer Hypothyroidism Hypercholesterolemia Hypertension Incomplete BBB SVT, resolved Past Surgical History: Thyroidectomy Hemorrhoidectomy Appendectomy Lumbar laminectomy, one level Bilateral upper lid ptosis and mechanical ptosis repair Family History: Family history reviewed. No relevant family history. Social History: Marital status: Tobacco use: Former, quit 1995 Alcohol use: Yes - 3-4 one shot drinks per night Review of Systems Constitutional: Negative for fever. Respiratory: Positive for shortness of breath (resolved). Negative for cough. Cardiovascular: Positive for palpitations (resolved). Negative for chest pain and leg swelling. Neurological: Negative for syncope. All other systems reviewed and are negative. Physical Exam First Vitals: BP: 136/76 mmHg Pulse: 88 Temp: 98.3 ??F (36.8 ??C) Resp: 16 Height: 175.3 cm (5' 9.02) Weight: 93.895 kg (207 lb) Physical Exam Nursing note and vitals reviewed. Constitutional: Oriented to person, place, and time. Appears well-developed and well-nourished. HENT: Head: Atraumatic. Mouth/Throat: Oropharynx is clear and moist. No oropharyngeal exudate. Eyes: EOM are normal. Pupils are equal, round, and reactive to light. Neck: Normal range of motion. Neck supple. No tracheal deviation present. No thyromegaly present. Cardiovascular: Normal rate, regular rhythm, normal heart sounds and intact distal pulses. Exam reveals no gallop and no friction rub. No murmur heard. Pulmonary/Chest: Effort normal and breath sounds normal. No respiratory distress. No wheezes. No rales. Exhibits no tenderness. Old scar lower anterior neck, above the manubrium. Abdominal: Soft. Bowel sounds are normal. Exhibits no distension and no mass. There is no tenderness. There is no rebound and no guarding. Musculoskeletal: Exhibits no edema. Lymphadenopathy: No cervical adenopathy. Neurological: Alert and oriented to person, place, and time. Skin: Skin is warm and dry. No rash noted. No pallor. Emergency Department Course ECG @ 11:16 Rate 88 bpm. MO interval 156 ms. QRS duration 102 ms. QT/QTc 370/447 ms. P-R-T axes 85 -26 42. Notes: Normal sinus rhythm. Pulmonary disease pattern. Incomplete right BBB. Abnormal ECG. Time read 11:25 Imaging: XR Chest: No acute cardiopulmonary abnormality. Final report per Dr. Anibal Naik, radiology. The patient was informed of these findings. Laboratory: CMP: Cr 1.04 (WNL), Glucose 129 (H), otherwise WNL CBC: WBC 6.0 (WNL), HGB 13.8 (WNL), PLT 222 (WNL), otherwise WNL Troponin I: <0.012 (WNL) TSH: 4.32 (WNL) Interventions: Metoprolol, 50 mg, PO ED Course: The patient was roomed. 11:49 AM The patient's medical charts were reviewed and I examined the patient. I discussed the plan of care with the patient which included the above ECG, imaging, and laboratory work. IV was started. Blood was drawn. ECG was obtained. X-ray of the chest was performed. 2:55 PM I spoke with Dr. Whitman, reduction plant supervisor for the patient's PCP. Dr. Corral. Findings and plan explained to the patient. Patient discharged home with instructions regarding supportive care, medications, and reasons to return. The importance of close follow-up was reviewed. The patient was prescribed Metoprolol. Impression & Plan Medical Decision Making: I found the patient to have poorly controlled hypertension. I was concerned about the possibility ofacute SVT, an alternative arrhythmia, or ACS, considering his history. Thus ECG was obtained, and hewas in a normal rhythm with no ischemic changes. His troponin is also normal. I did not feel that there was any concern for acute coronary ischemia, considering his history and he has had no chest pain. I do not feel there is any concern for Pulmonary embolus. He was told to return as needed if he develops any chest pain, recurrence of shortness of breath, or any evidence of heart racing or palpitations. I ordered an outpatient stress echocardiogram for him. Because his blood pressure remained elevated and he has had problems with this, I discussed the case with Dr. cSott Whitman. He was prescribed Metoprolol XL 50 mg QD to add to the Hydrochlorothiazide and Norvasc. The patient is concerned that hissymptoms are due to a side effect of Hydrochlorothiazide, so he would like to stop this medication. I told him that he can either stay on this or discontinue it if he is concerned about its side effects. I informed him that he is not significantly dehydrated as evident by his normal electrolytes and kidney functions, so he seems to be tolerating the medication well. I discussed with him that his blood sugar is slightly elevated, so he should follow up with his doctor for a fasting blood sugar. I also discussed with him that I feel his main problem today is his hypertension. Diagnosis: 1. Acute poorly controlled hypertension (401.9). 2. Acute palpitations (785.1). 3. Acute mild hyperglycemia IValentina, am serving as a scribe on 02/17/2014 at 11:49 AM to personally document services performed by Dr. Branham based on my observations and the provider's statements to me. Valentina Almaraz 02/17/2014 EMERGENCY DEPARTMENT Farida Branham MD 02/17/14 [id number] documented in this encounter Plan of Treatment Pending Results Name Type Priority Associated Diagnoses Date/Ti me Holter set up and scan - 48 EKG STAT 02/17/2014 4:15 PM CDT hrs Scheduled Orders Name Type Priority Associated Diagnoses Order S chedule Holter set up and scan EKG STAT One T judi for 1 Occurrences - 48 hrs starting 2013 until 02/17/2014 documented as of this encounter Procedures Procedure Name Priority Date/Time Associated Comments Diagnosis XR CHEST 2 VIEWS STAT 02/17/2014 12:18 Results for this PM CDT procedure are i n the results section. CBC WITH PLATELETS & STAT 02/17/2014 11:48 Res ults for this DIFFERENTIAL AM CDT procedure are i n the results section. TSH WITH FREE T4 STAT 02/17/2014 11:48 Results for this REFLEX AM CDT procedure are i n the results section. TROPONIN I STAT 02/17/2014 11:48 Results for this AM CDT procedure are i n the results section. COMPREHENSIVE STAT 02/17/2014 11:48 Results fo r this METABOLIC PANEL AM CDT procedure ar e in the results section. EKG 12-LEAD, TRACING STAT 02/17/2014 11:16 Res ults for this ONLY AM CDT procedure are i n the results section. HOLTER MONITOR CARDIAC 02/17/2014 12:00 - HIM SCAN AM CDT documented in this encounter Results Chest XR, PA & LAT (02/17/2014 12:18 PM CDT) Anatomical Region Laterality Modality Chest Computed Radiography Specimen (Source) Anatomical Location Collection Method / Collectio n Time Received Time / Laterality Volume Impressions 02/17/2014 1:03 PM CDT IMPRESSION: No acute cardiopulmonary abnormality. ANIBAL NAIK MD Narrative 02/17/2014 1:03 PM CDT XR CHEST 2 VW 02/17/2014 12:18 PM HISTORY: Short of breath. COMPARISON: 01/03/2010 FINDINGS: No airspace consolidation, ple ural effusion or pneumothorax. Normal heart size. Procedure Note Anibal Naik MD - 02/17/2014For matting of this note might be different from the original. XR CHEST 2 VW 02/17/2014 12:18 PM HISTORY: Short of breath. COMPARISON: 01/03/2010 FINDINGS: No airspace consolidation, ple ural effusion or pneumothorax. Normal heart size. IMPRESSION IMPRESSION: No acute cardiopulmonary abn ormality. ANIBAL NAIK MD Farida Branham MD IMG DIAGNOSTIC IMAGING ORDER RUBEN Troponin I (now) (02/17/2014 11:48 AM CDT) P athologist Signature Troponin I ES <0.012 0.000 - [facility] 0.034 ug/L [facility] Specimen Anatomical Collection Method Collection Time Receive d Time (Source) Location / / Volume Laterality Blood specimen 02/17/2014 11:48 4 (specimen) AM CDT 12:24 PM CDT Farida Branham MD LAB - BLOOD ORDERABLES Performing Organization Address City/State/ZIP Code Phon e Number [facility] [address] [place] [address] [facility] (ABNORMAL) Comprehensive metabolic panel (02/17/2014 11:48 AM CDT) Analysis Performed At Patho logist Time Signature Sodium 143 133 - 144 [place] mmol/L [facility] Potassium 4.3 3.4 - 5.3 [place] mmol/L [facility] Chloride 101 94 - 109 [place] mmol/L [facility] Carbon Dioxide 28 20 - 32 [place] mmol/L [facility] Anion Gap 14 6 - 17 [place] mmol/L [facility] Glucose 129 (H) 60 - 99 [place] mg/dL [facility] Urea Nitrogen 21 7 - 30 [place] mg/dL [facility] Creatinine 1.04 0.66 - [place] 1.25 mg/dL [facility] GFR Estimate 70 >60 [place] mL/min/1.[address] LAB GFR Estimate If 85 >60 [place] Black mL/min/1.[address] LAB Calcium 8.9 8.5 - 10.4 [place] mg/dL [facility] Bilirubin Total 0.9 0.2 - 1.3 [place] mg/dL [facility] Albumin 4.1 3.3 - 4.9 [place] g/dL [facility] Protein Total 7.1 6.8 - 8.8 [place] g/dL [facility] Alkaline 64 40 - 150 [place] Phosphatase U/L [facility] ALT 41 0 - 70 U/L [facility] AST 40 0 - 45 U/L [facility] Specimen Anatomical Collection Method Collection Time Receive d Time (Source) Location / / Volume Laterality Blood specimen 02/17/2014 11:48 4 (specimen) AM CDT 12:24 PM CDT Farida Branham MD LAB - BLOOD ORDERABLES Performing Organization Address City/State/ZIP Code Phon e Number [facility] [address] [phone] [facility] CBC with platelets + differential (02/17/2014 11:48 AM CDT) [facility] gist Method Time Signature WBC 6.0 4.0 - [place] 11.0 [facility] 10e9/L [facility] RBC Count 4.66 4.4 - 5.9 [place] 10e12/L [facility] Hemoglobin 13.8 13.3 - [place] 17.7 g/dL [facility] Hematocrit 42.4 40.0 - [place] 53.0 % [facility] MCV 91 78 - 100 [place] fl [facility] MCH 29.6 26.5 - [place] 33.0 pg [facility] MCHC 32.5 31.5 - [place] 36.5 g/dL [facility] RDW 14.0 10.0 - [place] 15.0 % [facility] Platelet Count 222 150 - 450 [place] 10e9/L [facility] Diff Method Automated [facility] % Neutrophils 71.0 % [facility] % Lymphocytes 19.6 % [facility] % Monocytes 5.7 % [facility] % Eosinophils 3.2 % [facility] % Basophils 0.2 % [facility] % Immature 0.3 % [place] Granulocytes [facility] Absolute 4.2 1.6 - 8.3 [place] Neutrophil 10e9/L [facility] Absolute 1.2 0.8 - 5.3 [place] Lymphocytes 10e9/L [facility] Absolute 0.3 0.0 - 1.3 [place] Monocytes 10e9/L [facility] Absolute 0.2 0.0 - 0.7 [place] Eosinophils 10e9/L [facility] Absolute 0.0 0.0 - 0.2 [place] Basophils 10e9/L [facility] Abs Immature 0.0 0 - 0.4 [place] Granulocytes 10e9/L [facility] Specimen Anatomical Collection Method Collection Time Receive d Time (Source) Location / / Volume Laterality Blood specimen 02/17/2014 11:48 4 (specimen) AM CDT 12:24 PM CDT Farida Branham MD LAB - BLOOD ORDERABLES Performing Organization Address City/State/ZIP Code Phon e Number [facility] [address] [phone] [facility] TSH with free T4 reflex (02/17/2014 11:48 AM CDT) P athologist Signature TSH 4.32 0.4 - 5.0 [place] mU/L [facility] Specimen Anatomical Collection Method Collection Time Receive d Time (Source) Location / / Volume Laterality Blood specimen 02/17/2014 11:48 4 (specimen) AM CDT 12:24 PM CDT Farida Branham MD LAB - BLOOD ORDERABLES Performing Organization Address City/State/ZIP Code Phon e Number [facility] [address] [place] [address] [phone] [facility] EKG 12-lead, tracing only (02/17/2014 11:16 AM CDT) Patholo gist Method Time Signature Interpretation ECG Click View RADIOLOGY Image link RESULTS to view waveform and result Specimen (Source) Anatomical Collection Method Collection Time Re ceived Time Location / / Volume Laterality 02/17/2014 11:16 AM CDT Farida Branham MD ECG ORDERABLES Performing Organization Address City/State/ZIP Code Phon e Number RADIOLOGY RESULTS HOLTER MONITOR CARDIAC - HIM SCAN (02/17/2014 12:00 AM CDT) Specimen (Source) Anatomical Location Collection Method / Collectio n Time Received Time / Laterality Volume 02/17/2014 Narrative This result has an attachment that is no t available. Provider Scan ECG ORDERABLES documented in this encounter Visit Diagnoses Diagnosis Hypertension - Primary Unspecified essential hypertension Palpitations documented in this encounter Administered Medications Inactive Administered Medications - up to 3 most recent administrations Medication Order MAR Action Action Date Dose Rate Site metoprolol (TOPROL-XL) 24 hr tablet Given 02/17/2014 3:22 PM CDT 50 mg 50 mg 50 mg, Oral, ONCE, On Thu02/17/14 at 1515, For 1 dose, DO NOT CRUSH. Tablet may be split in half along score line.. For Adults, Hold if HR < 60. documented in this encounter Active and Recently Administered Medications Times are shown in CDT. Scheduled Medication Order 02/15/2014 02/16/2014 02/17/2014 metoprolol (TOPROL-XL) 24 hr tablet 50 mg (COMPLETED) 1522 (Given - Provider: Maria G De Souza RN) 50 mg, Oral, ONCE, Thu02/17/14 at 1515, For 1 dose, DO NOT CRUSH. Tablet may be split in half along score line.. For Adults, Hold if HR < 60. documented in this encounter Care Teams Special Needs Librarian Relationship Specialty Start Date End Date Carlos Alberto Corral MD PCP - General Internal Medicine 10/15/12 09/18/[address] [address] documented as of this encounter
--- OUTSIDE RECORDS SUMMARY | 2022-07-31 17:30 | XMS_ITS | Encounter Summary ---
:1940 Author Organization [place] Address [address] 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 DOSE: The patient was treated definitively with external beam radiation, total dose of 7560 cGy, which was completed on 02/16/2001. SUBJECTIVE: It has been 2 years since her last visit. The patient has done very well since then. Denies problems with his bowel or bladder. Denies blood in the urine or blood in the bowels. The patient has recently retired and is now currently taking classes at the [employer]. OBJECTIVE: The patient is alert and oriented x3. RECTAL: Prostate is flat and smooth. No nodularities. LABS: PSA is 0.22. ASSESSMENT AND PLAN: Mr. Xiong is now 7 years since completion of radiation and has [...] questions regarding his visit with us today. I was personally present with the resident during the history and exam. I discussed the case with the resident and agree with the findings and plan of care as documented in the resident's note. Electronically signed on 02/18/2008 15:26 by ERON MANDEL MD As dictated by ULYSSES LR MD MT: dg Name: REBEKAH XIONG MRN: [id number] Account: [id number] : 1940 Visit Date: 02/16/2008 Document: [id number] cc: Ko Aguirre MD documented in this encounter Plan of Treatment Not on filedocumented as of this encounter Visit Diagnoses Not on filedocumented in this encounter
--- OUTSIDE RECORDS SUMMARY | 2022-07-31 17:30 | XMS_ITS | Encounter Summary ---
:1940 Author Organization [place] Address [facility] [place] [address] Care Team Providers Name Role Phone Maikel Brock Primary Care Provider Reason for Visit Reason Comments Hematuria gross hem Encounter Details Date Type Department Care Team Description 09/23/2017 Office Visit [facility] Racquel Diaz, Gross hematuria Urology [facility] JOHN (Primary Dx) [address] [place], [place] [address] [place] [address] [phone] (Work) [phone] Social History Tobacco Use Types Packs/Day Years Used Date Former Smoker Quit: 11/02/18 96 Smokeless Tobacco: Never Used Alcohol Use Standard Drinks/Week Comments Yes 28 (1 standard drink = 0.6 oz pure alcoh ol) Sex Assigned at Date Recorded Not on file documented as of this encounter Last Filed Vital Signs Vital Sign Reading Time Taken Comments Blood Pressure - - Pulse 60 09/23/2017 4:07 PM ANATOMIC PATHOLOGY ASSISTANT Temperature - - Respiratory Rate - - Oxygen Saturation 96% 09/23/2017 4:07 PM ANATOMIC PATHOLOGY ASSISTANT Inhaled Oxygen Concentration - - Weight 101.6 kg (224 lb) 09/23/2017 4:07 PM ANATOMIC PATHOLOGY ASSISTANT Height 172.7 cm (5' 8) 09/23/2017 4:07 PM ANATOMIC PATHOLOGY ASSISTANT Body Mass Index 34.06 09/23/2017 4:07 PM ANATOMIC PATHOLOGY ASSISTANT documented in this encounter Patient Instructions Patient InstructionsRacquel Diaz PA-C - 09/23/2017 4:00 PM CST -Urinalysis and urine culture to rule out an infection. - Urine cytology to look for abnormal cells. - CT scan. Please call [phone] to schedule this at [facility]. This should be done 1-2 days prior to appointment with the Urologist. - Cystoscopy with the first available urologist to evaluate the interior of the bladder. Follow up as recommended by urologist performing evaluation. OMIC PATHOLOGY ASSISTANT documented in this encounter Progress Notes Racquel Diaz PA-C - 09/23/2017 4:00 PM CST CC: Hematuria. HPI: It is a pleasure to see . Abraham Mancuso, a 77 year old male seen today in the urology clinic in consultation via self referral for evaluation of gross hematuria. This was first detected 1-2 weeks ago now. He has a history of atrial fibrillation on Xarelto (successful cardioversion), incomplete bundle branch block, hypothyroidism, hypertension, hypercholesterolemia, and prostate cancer (PCP follows PSA 05/14/17 0.06, Dr. Aguirre pt from many years ago, had RT) who presented to the ER in [place] with gross hematuria on09/19/17. The patient states he first noticed the hematuria this past Thursday09/14/17. He states it has been ongoing since then and happens every day, but does not happen all day long. He notes he sometimes passes clots with the urine. The patient went to [facility] in [place] where they placed a Nava catheter and performed a urinalysis, which was negative. The patient went back on Thursday to have the catheter removed since it was irritating him. The patient was instructed to follow-up with urology, and made an appointment at [facility] for this 09/24/17. The patient continues to have intermittent gross hematuria and no clots. Smoking history. Voids without difficulty, and reports nocturia of 0-1. He currently denies any dysuria, pyuria, hesitancy, intermittency, feelings of incomplete emptying, or any recent history of urinary tract infections or stones. Hematuria Risk Factors: Age >40: Yes Smoking history: yes Occupational exposure to chemicals or dyes (ie, benzenes, aromatic amines): no History of urologic disorder or disease: no History of irritative voiding symptoms: no History of urinary tract infection: no Analgesic abuse: no History of pelvic irradiation: yes Past Medical History: Diagnosis Date ??? History of cardioversion ??? HTN (hypertension) ??? Hypercholesterolemia ??? Hypothyroidism ??? Incomplete bundle branch block ??? Prostate cancer (H) LUPRON,RADIATION Past Surgical History: Procedure Laterality Date ??? APPENDECTOMY OPEN ??? HC HEMORROIDECTOMY, EXTERNAL, SINGLE COLUMN/GROUP ??? LAMINECTOMY LUMBAR ONE LEVEL ??? REPAIR PTOSIS BILATERAL 11/02/2012 Procedure: REPAIR PTOSIS BILATERAL; BILATERAL UPPER LID PTOSIS AND MECHANICAL PTOSIS REPAIR ; Surgeon: Devyn Ocampo MD; Location: [facility] ??? THYROIDECTOMY Current Outpatient Prescriptions Medication Sig Dispense Refill ??? SOTALOL HCL, AF, PO ??? Rivaroxaban (XARELTO PO) ??? tamsulosin (FLOMAX) 0.4 MG capsule Take by mouth daily ??? metoprolol (TOPROL-XL) 50 MG 24 hr tablet Take 1 tablet (50 mg) by mouth daily 30 tablet 1 ??? AmLODIPine Besylate (NORVASC PO) Take 5 mg by mouth daily. ??? FLUoxetine HCl (PROZAC PO) Take 40 mg by mouth daily. ??? Levothyroxine Sodium (SYNTHROID PO) Take 112 mcg by mouth daily. ??? atorvastatin (LIPITOR) 20 MG tablet TAKE 1 TABLET BY MOUTH EVERY DAY 90 tablet 0 Allergies Allergen Reactions ??? Aspirin ??? Contrast Dye hives ??? Lisinopril ??? Penicillins ??? Sulfa Drugs FAMILY HISTORY: There is no reported history of genitourinary carcinoma. There is no history of urolithiasis. SOCIAL HISTORY: The patient does not smoke cigarettes. Denies ETOH and illicit drug abuse. ROS: A comprehensive 14 point ROS was obtained and otherwise negative except for that outlined abovein the HPI. PHYSICAL EXAM: Pulse 60 Ht 1.727 m (5' 8) Wt 101.6 kg (224 lb) SpO2 96% BMI 34.06 kg/m2 GENERAL: Well groomed, well developed, well nourished male in NAD. HEENT: AT, NC, EOMI bilaterally. SKIN: Warm to touch, dry. No visible rashes or lesions on examined areas. RESP: No increased respiratory effort. MS: Full ROM in extremities. : Deferred for now. MYESHA: Deferred for now. NEURO: Alert and oriented x 3. PSYCH: Normal mood and affect, pleasant and agreeable during interview and exam. LABS: +blood on u/a IMAGING: ULTRASOUND RENAL COMPLETE 09/19/2017 12:16 PM HISTORY: Hematuria. ?? COMPARISON: None. ?? FINDINGS: ?? The right kidney measures 9.3 cm [id number]. No mass or obstruction. ?? The left kidney measures 10.4 cm [id number]. No mass or obstruction. ?? The bladder is partially distended and appeared normal. ?? IMPRESSION: Negative. ?? ASSESSMENT and PLAN: Mr. Abraham Mancuso is a pleasant 77 year old male with gross hematuria; remote hx of prostate cancer. The differential diagnosis at this point includes stone disease, infection, BPH, prostatitis, urothelial malignancy, renal disorder versus another yet unknown diagnosis. At this time, recommend proceeding with comprehensive hematuria evaluation to include: - Urinalysis and urine culture to rule out an acute urinary tract infection. - Urine cytology to look for cells concerning for malignancy. (needs more urine for this) - CT urogram for upper tract imaging. - Cystoscopy with the first available urologist to evaluate the interior of the bladder. Follow up for hematuria as recommended by urologist performing cystoscopic evaluation. Thank you for allowing me to participate in Mr. Mancuso's care. 30 minutes were spent with the patient today, > 50% in counseling and coordination of care. Racquel Diaz PA-C [facility] OMIC PATHOLOGY ASSISTANT documented in this encounter Nursing Notes Cristo Rosenberg CMA - 09/23/2017 4:00 PM CST Pt in and out of ED for gross hem. Pt has imaging in the medical center. Pt in and out of ED for blood in the urine. Darius Rosenberg CMA OMIC PATHOLOGY ASSISTANT documented in this encounter Plan of Treatment Not on filedocumented as of this encounter Procedures Procedure Name Priority Date/Time Associated Comments Diagnosis URINE MACROSCOPIC Routine 09/23/2017 4:17 PM Gross hematuria R esults for this ONLY ANATOMIC PATHOLOGY ASSISTANT procedure are i n the results section. documented in this encounter Results CT Abdomen Pelvis w/o Contrast (10/21/2017 3:47 PM ANATOMIC PATHOLOGY ASSISTANT) Anatomical Region Laterality Modality Abdomen/Pelvis, SUBRAD CT BODY, UMP CT ABDOMEN PELVIS, Computed Tomography RAD CT Specimen (Source) Anatomical Location Collection Method / Collectio n Time Received Time / Laterality Volume Impressions 10/22/2017 7:56 AM ANATOMIC PATHOLOGY ASSISTANT IMPRESSION: No urinary tract calculi or hydronephrosis. Prostate gland is not enlarged but a few prostatic calc ifications are present. Follow-up as clinically warranted. MEGA WILSON MD Narrative 10/22/2017 7:[address] ABDOMEN AND PELVIS WITHOUT CONTRAST 10/21/2017 [...] MD Racquel Diaz PA-C IMG CT ORDERABLES (ABNORMAL) UA without Microscopic (09/23/2017 4:17 PM [facility]) [facility] Method Time Signature Color Urine Yellow 09/23/2017 [facility] 4:21 PM [facility] Appearance Urine Clear 09/23/2017 [facility] 4:21 PM [facility] Glucose Urine Negative NEG^Negat 09/23/2017 [facility] emily mg/dL 4:21 PM [facility] Bilirubin Urine Negative NEG^Negat 09/23/2017 [facility] emily 4:21 PM [facility] Ketones Urine Negative NEG^Negat 09/23/2017 [facility] emily mg/dL 4:21 PM [facility] Specific [place] 1.015 1.003 - 09/23/2017 [facility] Urine 1.035 4:21 PM [facility] Blood Urine Moderate (A) NEG^Negat 09/23/2017 [facility] emily 4:21 PM [facility] pH Urine 6.0 5.0 - 7.0 09/23/2017 [facility] pH 4:21 PM [facility] Protein Albumin 100 (A) NEG^Negat 09/23/2017 [facility] Urine emily mg/dL 4:21 PM [facility] Urobilinogen 0.2 0.2 - 1.0 09/23/2017 [facility] Urine EU/dL 4:21 PM [facility] Nitrite Urine Negative NEG^Negat 09/23/2017 [facility] emily 4:21 PM ANATOMIC PATHOLOGY ASSISTANT [facility] Leukocyte Negative NEG^Negat 09/23/2017 [facility] Esterase Urine emily 4:21 PM ANATOMIC PATHOLOGY ASSISTANT [facility] Source Midstream 09/23/2017 [facility] Urine 4:21 PM ANATOMIC PATHOLOGY ASSISTANT [facility] Specimen (Source) Anatomical Collection Method Collection Time Re ceived Time Location / / Volume Laterality Examination of 09/23/2017 4:17 09/23/2017 4:18 midstream urine PM ANATOMIC PATHOLOGY ASSISTANT PM ANATOMIC PATHOLOGY ASSISTANT specimen (procedure) Racquel Diaz PA-C LAB - URINE ORDERABLES Performing Organization Address City/State/ZIP Code Phon e Number [facility] [address] [place] [address] [facility] [address] documented in this encounter Visit Diagnoses Diagnosis Gross hematuria - Primary Gross hematuria documented in this encounter Care Teams Fraud Investigator Relationship Specialty Start Date End Date Maikel Brock PCP - General Family Practice 09/19/[address] [address] documented as of this encounter
--- OUTSIDE RECORDS SUMMARY | 2022-07-31 17:30 | XMS_ITS | Encounter Summary ---
:1940 Author Organization [place] Address [facility] [place] [address] Care Team Providers Name Role Phone Unavailable Primary Care Provider Unavailable Encounter Details Date Type Department Care Team Description 02/16/2008 Office Visit-[facility] Allergy and Asthma Ortiz Shay Phillips-Wangensteen MD Building XXX RESIGNED XXX 2nd Floor, Clinic [address] [address] [facility] [address] [place] [phone] Social History Tobacco Use Types Packs/Day Years Used Date Never Assessed Sex Assigned at Date Recorded Not on file documented as of this encounter Progress Notes Ortiz Shay - 02/16/2008 12:45 PM CDT Economist Research Assistant: Ortiz Shay Status: Final - Signature Encounter: 16 Feb 2008 Type: Allergy and Asthma Visit Chief Complaint Patient has no complaints at this time. He feels his urticaria is well controlled. History of Present Illness Pt. has had poorly controlled urticaria for the past 7 years. He describes it as redness and raised welts with severe itchiness all over his body. On his last visit, January 02, cyproheptadine was added to his antihistamine regimen. He began to feel goofy including weird dreams and daytime drowsiness.He stopped his doxepin, fexofenadine, ranitidine, cyproheptadine, and Singulair on January 15. Overthe past month, since stopping all of these medications, the pts. symptoms have greatly improved. Heno longer has any welts or redness. He still has bouts of severe itchiness around two times a day either immediately before or after he goes to bed. He treats these with OTC hydrocortisone 1% cream which relieves the itchiness immediately. He states that this is the best he has felt in years. He has had no angioedema or SOB. Review of Systems 10 point review of systems is negative. Past Medical History Pressure urticaria, angioedema, and urticaria of idiopathic origin, depression, hypothyroidism Medications EpiPen Lipitor 10 mg daily Prozac 20 mg daily Synthroid 125 mcg daily Hydrocortisone 1% cream prn (uses on average 2 X per day on small area of skin) Adverse Drug Reactions Sulfa = unknown reaction, pts. mother told him he was allergic as a child PCN = unknown reaction, pts. mother told him he was allergic as a child ASA = [facility] told him to avoid salicylates based on a lab test that was done on him in the s Social History with three grown children, retired from [employer] business. Family History Father had hay fever and maybe food allergies, three siblings and three children with no known allergy/asthma history Physical Exam Labs/Tests GABE =3.3 total IgE = 462 KIU/L Shrimp IgE = 3.11 Crab IgE = 2.65 Assessment Pt. has improved since discontinuing all of his medications for his urticaria except for his OTC hydrocortisone. Continuation of this regimen is warranted. Plan 1. D/C cyproheptadine 2. D/C doxepin 3. D/C fexofenadine 4. D/C ranitidine 5. D/C montelukast 6. Continue OTC hydrocortisone 1% prn 7. Return to clinic in 6 months or sooner if symptoms worsen Patient with urticaria doing well off his medication. I had a long talk with the patiet and options.The history, physical examination, overall plan and diagnosis was obtained and discussed with the patient and scribe. The results are summarized above. Electronically signed by:Oscar Kelly Feb 16 2008 1:54PM INFORMATION SYSTEMS SECURITY SPECIALIST Electronically signed by:Sanju Shay M.D. Feb 16 2008 5:48PM INFORMATION SYSTEMS SECURITY SPECIALIST documented in this encounter Plan of Treatment Not on filedocumented as of this encounter Visit Diagnoses Not on filedocumented in this encounter
--- OUTSIDE RECORDS SUMMARY | 2022-07-31 17:30 | XMS_ITS | Encounter Summary ---
:1940 Author Organization [facility] Address [address] [place] [address] Care Team Providers Name Role Phone Unavailable Primary Care Provider Unavailable Encounter Details Date Type Department Care Team Description 02/10/2008 [facility] Bonita LLOYD [address] [address] [place] [address] Social History Tobacco Use Types Packs/Day Years Used Date Never Assessed Sex Assigned at Date Recorded Not on file documented as of this encounter Plan of Treatment Not on filedocumented as of this encounter Procedures Procedure Name Priority Date/Time Associated Diagnosis Comme nts PROSTATE SPECIFIC Routine 02/10/2008 9:35 AM Resu lts for this ANTIGEN SCREEN CDT procedure are in the results section. documented in this encounter Results Prostate spec antigen screen (02/10/2008 9:35 AM CDT) P athologist Signature PSA 0.22 0 - 4 ug/L [facility] Specimen Anatomical Collection Method Collection Time Receive d Time (Source) Location / / Volume Laterality 02/10/2008 9:35 AM 8 9:40 CDT AM CDT Irina Mandel MD LAB - BLOOD ORDERABLES Performing Organization Address City/State/ZIP Code Phon e Number [facility] documented in this encounter Visit Diagnoses Not on filedocumented in this encounter
--- OUTSIDE RECORDS SUMMARY | 2022-07-31 17:30 | XMS_ITS | Encounter Summary ---
:1940 Author Organization [place] Address [address] [place] [address] Care Team Providers Name Role Phone Carlos Alberto Corral MD Primary Care Provider Encounter Details Date Type Department Care Team Description 01/09/2010 Historic Results [facility] Heart Unknown, [address] [place] [address] Social History Tobacco Use Types Packs/Day Years Used Date Never Assessed Sex Assigned at Date Recorded Not on file documented as of this encounter Plan of Treatment Not on filedocumented as of this encounter Procedures Procedure Name Priority Date/Time Associated Diagnosis Comme nts NUCLEAR CARDIAC - HIM 01/09/2010 12:00 AM CDT SCAN - ARCHIVE documented in this encounter Results NUCLEAR CARDIAC - HIM SCAN - ARCHIVE (01/09/2010 12:00 AM CDT) Specimen (Source) Anatomical Location Collection Method / Collectio n Time Received Time / Laterality Volume 01/09/2010 Narrative This result has an attachment that is no t available. Provider Scan IMG NM ORDERABLES documented in this encounter Visit Diagnoses Not on filedocumented in this encounter Care Teams Application Integrator Relationship Specialty Start Date End Date Carlos Alberto Corral MD PCP - General Internal Medicine 10/15/12 09/18/[address] [id number] documented as of this encounter
--- OUTSIDE RECORDS SUMMARY | 2022-07-31 17:30 | XMS_ITS | Encounter Summary ---
:1940 Author Organization [place] Address [address] [facility] [place] [address] Care Team Providers Name Role Phone Carlos Alberto Corral MD Primary Care Provider Reason for Visit Reason Onset Date Comments Heart Problem 04/11/2014 Encounter Details Date Type Department Care Team Description 04/11/2014 Telephone [facility] Sleep Omar Berkowitz, Heart Problem Centers Aniya LLOYD [address] [facility] [address] [facility] [address] [place] [phone] [place] [phone] (Wo rk) Social History Tobacco Use Types Packs/Day Years Used Date Former Smoker Quit: 11/02/18 96 Smokeless Tobacco: Never Used Alcohol Use Standard Drinks/Week Comments Yes 0 (1 standard drink = 0.6 oz pure alcoho l) Sex Assigned at Date Recorded Not on file documented as of this encounter Miscellaneous Notes Telephone Encounter - Celena Diop - 04/11/2014 4:09 PM CDT Called and spoke with Abraham regarding scheduling psg per Dr Berkowitz order. Abraham wants to research sleep apnea, not too sure about consult or sleep study. He is leaving town for a vacation and wantsto be called end of April. He also has a f/u appt 05/19/[address] Parks. documented in this encounter Plan of Treatment Not on filedocumented as of this encounter Visit Diagnoses Not on filedocumented in this encounter Care Teams Customer Records Division Supervisor Relationship Specialty Start Date End Date Carlos Alberto Corral MD PCP - General Internal Medicine 10/15/12 09/18/[address] [address] documented as of this encounter
--- OUTSIDE RECORDS SUMMARY | 2022-07-31 17:30 | XMS_ITS | Encounter Summary ---
:1940 Author Organization [place] Address [address] [facility] [place] [address] Care Team Providers Name Role Phone Carlos Alberto Corral MD Primary Care Provider Reason for Visit Reason Onset Date Comments Call To Schedule Appointment 03/28/2014 [facility] Encounter Details Date Type Department Care Team Description 03/28/2014 [facility] Omar Berkowitz Call To Schedule Sleep Centers Aniya Rg MD Appointment ([place] [phone] [facility] [address] [facility] calling to [address]) [address] [place] [address] [place] [phone] Social History Tobacco Use Types Packs/Day Years Used Date Former Smoker Quit: 11/02/18 96 Smokeless Tobacco: Never Used Alcohol Use Standard Drinks/Week Comments Yes 0 (1 standard drink = 0.6 oz pure alcoho l) Sex Assigned at Date Recorded Not on file documented as of this encounter Miscellaneous Notes Telephone Encounter - Laura Jones - 03/28/2014 11:59 AM CDT Left a message for patient to contact sleep center to schedule psg and consult after with Dr. Berkowitz. documented in this encounter Plan of Treatment Not on filedocumented as of this encounter Visit Diagnoses Not on filedocumented in this encounter Care Teams Supervisor Power Reactor Relationship Specialty Start Date End Date Carlos Alberto Corral MD PCP - General Internal Medicine 10/15/12 09/18/[address] [address] documented as of this encounter
[2022-07-31 17:31] LABS: Slide Review Reflex No
--- OUTSIDE RECORDS SUMMARY | 2022-07-31 17:31 | XMS_ITS | Encounter Summary ---
:1940 Author Organization [place] Address [facility] [place] [address] Care Team Providers Name Role Phone Unavailable Primary Care Provider Unavailable Encounter Details Date Type Department Care Team Description 01/03/2008 Historic Results Allergy and Asthma Ortiz Shay Phillips-Wangensteen MD Building XXX RESIGNED XXX 2nd Floor, Clinic 2A [address] [facility] [address] [place] [id number] [phone] Social History Tobacco Use Types Packs/Day Years Used Date Never Assessed Sex Assigned at Date Recorded Not on file documented as of this encounter Plan of Treatment Not on filedocumented as of this encounter Procedures Procedure Name Priority Date/Time Associated Diagnosis Comme nts ALLERGEN WHEAT IGE Routine 01/03/2008 12:09 PM Re sults for this CDT procedure are i n the results section. ALLERGEN TUNA IGE Routine 01/03/2008 12:09 PM Res ults for this CDT procedure are i n the results section. ALLERGEN TOMATO IGE Routine 01/03/2008 12:09 PM R esults for this CDT procedure are i n the results section. ALLERGEN SOYBEAN Routine 01/03/2008 12:09 PM Resu lts for this IGE CDT procedure are i n the results section. ALLERGEN SHRIMP IGE Routine 01/03/2008 12:09 PM R esults for this CDT procedure are i n the results section. ALLERGEN RICE IGE Routine 01/03/2008 12:09 PM Res ults for this CDT procedure are i n the results section. ALLERGEN PEANUT IGE Routine 01/03/2008 12:09 PM R esults for this CDT procedure are i n the results section. ALLERGEN PEA IGE Routine 01/03/2008 12:09 PM Resu lts for this CDT procedure are i n the results section. ALLERGEN ORANGE IGE Routine 01/03/2008 12:09 PM R esults for this CDT procedure are i n the results section. ALLERGEN MILK IGE Routine 01/03/2008 12:09 PM Res ults for this CDT procedure are i n the results section. ALLERGEN EGG WHITE Routine 01/03/2008 12:09 PM Re sults for this IGE CDT procedure are i n the results section. ALLERGEN CRAB IGE Routine 01/03/2008 12:09 PM Res ults for this CDT procedure are i n the results section. ALLERGEN CORN IGE Routine 01/03/2008 12:09 PM Res ults for this CDT procedure are i n the results section. ALLERGEN CODFISH Routine 01/03/2008 12:09 PM Resu lts for this IGE CDT procedure are i n the results section. ALLERGEN BARLEY IGE Routine 01/03/2008 12:09 PM R esults for this CDT procedure are i n the results section. documented in this encounter Results Allergen egg white IgE (01/03/2008 12:09 PM CDT) P athologist Signature Allergen Egg <0.35 <0.35 MISYS White KU(A)/L Comment: Interp: Class 0 - Negative, Con safety consultant 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 Specimen Anatomical Collection Method Collection Time Receive d Time (Source) Location / / Volume Laterality 01/03/2008 12:09 01/07/2008 8:13 PM CDT AM CDT Ortiz Shay MD LAB - BLOOD ORDERABLES Performing Organization Address City/State/ZIP Code Phon e Number MISYS Allergen pea IgE (01/03/2008 12:09 PM CDT) P athologist Signature Allergen Pea <0.35 <0.35 MISYS KU(A)/L Comment: Interp: Class 0 - Negative, Con safety consultant 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 Specimen Anatomical Collection Method Collection Time Receive d Time (Source) Location / / Volume Laterality 01/03/2008 12:09 01/07/2008 8:13 PM CDT AM CDT Ortiz Shay MD LAB - BLOOD ORDERABLES Performing Organization Address City/State/ZIP Code Phon e Number MISYS Allergen peanut IgE (01/03/2008 12:09 PM CDT) P athologist Signature Allergen Peanut <0.35 <0.35 MISYS KU(A)/L Comment: Interp: Class 0 - Negative, Con safety consultant 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 Specimen Anatomical Collection Method Collection Time Receive d Time (Source) Location / / Volume Laterality 01/03/2008 12:09 01/07/2008 8:13 PM CDT AM CDT Ortiz Shay MD LAB - BLOOD ORDERABLES Performing Organization Address City/State/ZIP Code Phon e Number MISYS Allergen soybean IgE (01/03/2008 12:09 PM CDT) P athologist Signature Allergen <0.35 <0.35 MISYS Soybean IgE KU(A)/L Comment: Interp: Class 0 - Negative, Con safety consultant 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 Specimen Anatomical Collection Method Collection Time Receive d Time (Source) Location / / Volume Laterality 01/03/2008 12:09 01/07/2008 8:13 PM CDT AM CDT Ortiz Shay MD LAB - BLOOD ORDERABLES Performing Organization Address City/State/ZIP Code Phon e Number MISYS Allergen milk IgE (01/03/2008 12:09 PM CDT) P athologist Signature Allergen Milk <0.35 <0.35 MISYS KU(A)/L Comment: Interp: Class 0 - Negative, Con safety consultant 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 Specimen Anatomical Collection Method Collection Time Receive d Time (Source) Location / / Volume Laterality 01/03/2008 12:09 01/07/2008 8:13 PM CDT AM CDT Ortiz Shay MD LAB - BLOOD ORDERABLES Performing Organization Address City/State/ZIP Code Phon e Number MISYS (ABNORMAL) Allergen crab IgE (01/03/2008 12:09 PM CDT) P athologist Signature Allergen Crab 2.65 (H) <0.35 MISYS KU(A)/L Comment: Interp: Class II - Moderate Response, Pr obably a contributing factor to total allergic load Specimen Anatomical Collection Method Collection Time Receive d Time (Source) Location / / Volume Laterality 01/03/2008 12:09 01/07/2008 8:13 PM CDT AM CDT Ortiz Shay MD LAB - BLOOD ORDERABLES Performing Organization Address City/[facility]/ZIP Code Phon e Number MISYS (ABNORMAL) Allergen shrimp IgE (01/03/2008 12:09 PM CDT) P athologist Signature Allergen 3.11 (H) <0.35 MISYS Shrimp KU(A)/L Comment: Interp: Class II - Moderate Response, Pr obably a contributing factor to total allergic load Specimen Anatomical Collection Method Collection Time Receive d Time (Source) Location / / Volume Laterality 01/03/2008 12:09 01/07/2008 8:13 PM CDT AM CDT Ortiz Shay MD LAB - BLOOD ORDERABLES Performing Organization Address [facility] Code Phon e Number MISYS Allergen tomato IgE (01/03/2008 12:09 PM CDT) P athologist Signature Allergen Tomato <0.35 <0.35 MISYS KU(A)/L Comment: Interp: Class 0 - Negative, Con safety consultant 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 Specimen Anatomical Collection Method Collection Time Receive d Time (Source) Location / / Volume Laterality 01/03/2008 12:09 01/07/2008 8:13 PM CDT AM CDT Ortiz Shay MD LAB - BLOOD ORDERABLES Performing Organization Address [facility] Code Phon e Number MISYS Allergen codfish IgE (01/03/2008 12:09 PM CDT) P athologist Signature Allergen <0.35 <0.35 MISYS Fish(Cod) KU(A)/L Comment: Interp: Class 0 - Negative, Con safety consultant 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 Specimen Anatomical Collection Method Collection Time Receive d Time (Source) Location / / Volume Laterality 01/03/2008 12:09 01/07/2008 8:13 PM CDT AM CDT Ortiz Shay MD LAB - BLOOD ORDERABLES Performing Organization Address City/[facility]/ZIP Code Phon e Number MISYS Allergen orange IgE (01/03/2008 12:09 PM CDT) P athologist Signature Allergen [place] <0.35 <0.35 MISYS KU(A)/L Comment: Interp: Class 0 - Negative, Con safety consultant 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 Specimen Anatomical Collection Method Collection Time Receive d Time (Source) Location / / Volume Laterality 01/03/2008 12:09 01/07/2008 8:13 PM CDT AM CDT Ortiz Shay MD LAB - BLOOD ORDERABLES Performing Organization Address [facility] Phon e Number MISYS Allergen wheat IgE (01/03/2008 12:09 PM CDT) P athologist Signature Allergen Wheat <0.35 <0.35 MISYS KU(A)/L Comment: Interp: Class 0 - Negative, Con safety consultant 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 Specimen Anatomical Collection Method Collection Time Receive d Time (Source) Location / / Volume Laterality 01/03/2008 12:09 01/07/2008 8:13 PM CDT AM CDT Ortiz Shay MD LAB - BLOOD ORDERABLES Performing Organization Address [facility] Code Phon e Number MISYS Allergen tuna IgE (01/03/2008 12:09 PM CDT) P athologist Signature Allergen Tuna <0.35 <0.35 MISYS KU(A)/L Comment: Interp: Class 0 - Negative, Con safety consultant 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 Specimen Anatomical Collection Method Collection Time Receive d Time (Source) Location / / Volume Laterality 01/03/2008 12:09 01/07/2008 8:13 PM CDT AM CDT Ortiz Shay MD LAB - BLOOD ORDERABLES Performing Organization Address City/[facility] Code Phon e Number MISYS Allergen barley IgE (01/03/2008 12:09 PM CDT) P athologist Signature Allergen Barley <0.35 <0.35 MISYS KU(A)/L Comment: Interp: Class 0 - Negative, Con safety consultant 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 Specimen Anatomical Collection Method Collection Time Receive d Time (Source) Location / / Volume Laterality 01/03/2008 12:09 01/07/2008 8:13 PM CDT AM CDT Ortiz Shay MD LAB - BLOOD ORDERABLES Performing Organization Address [facility] Code Phon e Number MISYS Allergen corn IgE (01/03/2008 12:09 PM CDT) P athologist Signature Allergen [place] <0.35 <0.35 MISYS KU(A)/L Comment: Interp: Class 0 - Negative, Con safety consultant 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 Specimen Anatomical Collection Method Collection Time Receive d Time (Source) Location / / Volume Laterality 01/03/2008 12:01/07/2008 8:13 PM CDT AM CDT Ortiz Shay MD LAB - BLOOD ORDERABLES Performing Organization Address [facility] Phon e Number MISYS Allergen rice IgE (01/03/2008 12:09 PM CDT) P athologist Signature Allergen Rice <0.35 <0.35 MISYS KU(A)/L Comment: Interp: Class 0 - Negative, Con safety consultant 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 Specimen Anatomical Collection Method Collection Time Receive d Time (Source) Location / / Volume Laterality 01/03/2008 12:09 01/07/2008 8:13 PM CDT AM CDT Ortiz Shay MD LAB - BLOOD ORDERABLES Performing Organization Address City/State/[facility] Code Phon e Number MISYS documented in this encounter Visit Diagnoses Not on filedocumented in this encounter
--- OUTSIDE RECORDS SUMMARY | 2022-07-31 17:31 | XMS_ITS | Encounter Summary ---
:1940 Author Organization [place] Address [address] 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 DOSE:The patient received 2500 cGy to the pelvis, followed by additional 3060 cGy boost via IMRT (total dose of 7560 cGy). He was treated between 12/21/00 and 02/16/01. SUBJECTIVE:Mr. Xiong is a 64-year-old gentleman with adenocarcinoma of the prostate, 4 years status post completion of radiation therapy. He is here today for a routine follow-up. He has been doing well since we last saw him in 06/29. His urinary symptoms have been stable. He reports a good urinary stream. He is able to fully empty his bladder. He denies bacteria. He does have some urgency which has not changed. He also has difficulty with erections which has not improved. He has occasional constipation for which he uses laxatives. The patient also has a chronic problem with developing hives, especially on his hands when he works out in the yard. He is worked up by Dr. Shay. OBJECTIVE:Weight today 175.6 pounds. He is a very pleasant gentleman in no acute distress. RECTAL: Normal sphincter tone, a flat prostatic bed without palpable nodules. LABORATORY VALUES: PSA drawn on 11/13/04 was 0.39 (0.27 on 05/23/04, 0.17 in 05/28). 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 The patient has minimal bowel or urinary symptoms; however, his PSA does appear to slowly trend upwards. This most likely still represents a fluctuation following radiation therapy, however, it needs to be closely monitored. We will check another PSA in 3 months time. If it continues to rise, we will consider ordering an MRI of the pelvis, along a re-biopsy of the prostate by Dr. Aguirre to rule out recurrent disease. If his next PSA has come down, we will continue to follow him at 6 month intervals. Of note, the patient is also scheduled to see Dr. Aguirre in 04/29. Thank you for allowing us to participate in the care of this very pleasant gentleman. Vandana Duarte MD Resident Physician Patient seen and examined by me and resident. Patient examined by resident/fellow in my presence. Discussed with resident and agree with note. My garcia findings: CC: Prostate cancer, status post XRT. HPI: No symptoms. Feels well. Exam: Flat, smooth gland. Assessment and Plan: PSA 0.39. Will follow-up again in 3 months. May recommend a MRI and possible biopsy if continues to rise. ERON LOVING MD Physician'S Aide Radiation Oncology Date: Dictated by: VANDANA DUARTE MD MT: ashlee R/12/23/04/ Document: [id number] CC: MD ERON JACK MD JOHN C HULBERT, MD MALCOLM N BLUMENTHAL, MD LCN: [place] DSC: 12/05/2004 [place], [place] Name: MR#: : ELVIRA: REBEKAH XIONG [id number] 1940 12/05/2004 THERAPEUTIC RADIOLOGY PROGRESS/FOLLOW UP NOTE Page 2 of 2 ING TECHNICIAN documented in this encounter Plan of Treatment Not on filedocumented as of this encounter Visit Diagnoses Not on filedocumented in this encounter
--- OUTSIDE RECORDS SUMMARY | 2022-07-31 17:31 | XMS_ITS | Encounter Summary ---
:1940 Author Organization [place] Address [address] [place] [address] Care Team Providers Name Role Phone Unavailable Primary Care Provider Unavailable Encounter Details Date Type Department Care Team Description 03/30/[address] [facility] [address] On[facility] Bonita LLOYD [address] [place] [address] [place] [address] Social History Tobacco Use Types Packs/Day Years Used Date Never Assessed Sex Assigned at Date Recorded Not on file documented as of this encounter Plan of Treatment Not on filedocumented as of this encounter Procedures Procedure Name Priority Date/Time Associated Diagnosis Comme nts PSA TUMOR MARKER Routine 03/30/2006 8:32 AM Resul ts for this CDT procedure are i n the results section. documented in this encounter Results PSA tumor marker (03/30/2006 8:32 AM CDT) P athologist Signature PSA 0.40 0 - 4 ug/L MISYS Specimen Anatomical Collection Method Collection Time Receive d Time (Source) Location / / Volume Laterality 03/30/2006 8:32 AM 200 6 8:27 CDT AM CDT Irina Mandel MD LAB - BLOOD ORDERABLES Performing Organization Address City/State/ZIP Code Phon e Number MISYS documented in this encounter Visit Diagnoses Not on filedocumented in this encounter
--- OUTSIDE RECORDS SUMMARY | 2022-07-31 17:31 | XMS_ITS | Encounter Summary ---
:1940 Author Organization [place] Address [facility] [place] [address] Care Team Providers Name Role Phone Carlos Alberto Corral MD Primary Care Provider Encounter Details Date Type Department Care Team Description 11/22/2002 Historic Results [facility] Heart Unknown, [address] [place] [address] Social History Tobacco Use Types Packs/Day Years Used Date Never Assessed Sex Assigned at Date Recorded Not on file documented as of this encounter Plan of Treatment Not on filedocumented as of this encounter Procedures Procedure Name Priority Date/Time Associated Diagnosis Comme nts ECHO CARDIAC - HIM SCAN 11/22/2002 12:00 AM EXPORT AGENT - ARCHIVE documented in this encounter Results ECHO CARDIAC - HIM SCAN - ARCHIVE (11/22/2002 12:00 AM EXPORT AGENT) Specimen (Source) Anatomical Location Collection Method / Collectio n Time Received Time / Laterality Volume 11/22/2002 Narrative This result has an attachment that is no t available. Provider Scan CV ECHO ORDERABLES documented in this encounter Visit Diagnoses Not on filedocumented in this encounter Care Teams Labels Molder Relationship Specialty Start Date End Date Carlos Alberto Corral MD PCP - General Internal Medicine 10/15/12 09/18/[address] [id number] documented as of this encounter
--- OUTSIDE RECORDS SUMMARY | 2022-07-31 17:31 | XMS_ITS | Encounter Summary ---
:1940 Author Organization [place] Address [address] [place] [address] Care Team Providers Name Role Phone Unavailable Primary Care Provider Unavailable Encounter Details Date Type Department Care Team Description 12/08/2007 Historic Results Allergy and Asthma Ortiz Shay Phillips-Wangensteen MD Building XXX RESIGNED XXX 2nd Floor, Clinic 2A [address] [facility] [address] [facility] [address] [place] [phone] Social History Tobacco Use Types Packs/Day Years Used Date Never Assessed Sex Assigned at Date Recorded Not on file documented as of this encounter Plan of Treatment Not on filedocumented as of this encounter Procedures Procedure Name Priority Date/Time Associated Diagnosis Comme nts HISTAMINE URINE Routine 12/08/2007 7:45 AM Result s for this BOWLING ALLEY MANAGER procedure are i n the results section. documented in this encounter Results Histamine urine (12/08/2007 7:45 AM BOWLING ALLEY MANAGER) P athologist Signature Histamine 55 MISYS Urine/Volume Comment: Unit: nmol/L Histamine Urine/G Creatinine 54 M ISYS Comment: Reference range: 0 to 386 Unit: nmol/g (Note) TEST INFORMATION: ??Histamine, Urine nmo l/g creat This test uses a kit designated by the mike aldana as for research use, not for clinical use. The performance characteristics of this test were valida beltran by [facility] The U.S. Food and Kojo g Administration (FDA) has not approved this test. The re sults are not intended to be used as the sole means fo r clinical diagnosis or patient management decision s. [facility] is authorized under Clinical Laboratory Imp rovement Amendments (CLIA) and by all states to p erform high- complexity testing. Creatinine For Histamine 24 H/Random Urine 101 MISYS Comment: Unit: mg/dL (Note) Performed by [facility], [address] [place] [address] [email or web address], ??Kenny Hoffmann MD - Lab. Director Specimen Anatomical Collection Method Collection Time Receive d Time (Source) Location / / Volume Laterality 12/08/2007 7:45 AM 8 BOWLING ALLEY MANAGER 12:03 PM BOWLING ALLEY MANAGER Ortiz Shay MD LAB - URINE ORDERABLES Performing Organization Address City/State/ZIP Code Phon e Number MISYS documented in this encounter Visit Diagnoses Not on filedocumented in this encounter
--- OUTSIDE RECORDS SUMMARY | 2022-07-31 17:31 | XMS_ITS | Encounter Summary ---
:1940 Author Organization [place] Address [address] [place] [address]. [place] [address] Care Team Providers Name Role Phone Unavailable Primary Care Provider Unavailable Encounter Details Date Type Department Care Team Description 01/18/2007 Historic Results INTERFACED REPORT Interface, Wade goins MD Social History Tobacco Use Types Packs/Day Years Used Date Never Assessed Sex Assigned at Date Recorded Not on file documented as of this encounter Plan of Treatment Not on filedocumented as of this encounter Procedures Procedure Name Priority Date/Time Associated Diagnosis Comme nts PFT GENERAL LAB Routine 01/18/2007 9:14 AM Result s for this TESTING CDT procedure are i n the results section. documented in this encounter Results Pulmonary function test procedure (01/18/2007 9:14 AM CDT) [facility] Method Time Signature Pulmonary RADIOLOGY Function Test Name: ? REBEKAH XIONG ?ID: ?[id number] RESULTS Doctor: ?TJA, MAL PATSY ? Height: ? 69.00 in ? Age: ?66 Tech: ? EUER, JENNIFE R ? Weight: ? 189.40 lbs ?? Sex: ?Male Date: ?01/18/2007 ?Time: ??09:14:00 AM ? Race: ? <Unspecified> Secondary ID: PT ID: ? [id number] ? Doctor ID: Change Status: Diagnosis: ?ALLERGIES Dyspnea: ?On hills and stairs Cough: ?No Cough Wheeze: ? No Wheeze Yrs Quit: ? Pks/Day: Yrs Smk: ?Tbco Pr od: Post-Test Comments: ?? GOOD EFFORT ? PRE-BRONCH ?POST-BRONCH ? Actual ?Pred ?%Pred ??Actual ?? %Pred ? %Chng SPIROMETRY FVC (L) ?3.92 ?4.40 ? 89 FEV1 (L) ? 2.69 ?3.27 ? 82 FEV1/FVC (%) ? 69 ?74 ? 93 FEF 25% (L/sec) ?8.19 ?7.15 ?1 15 FEF 50% (L/sec) ?2.21 ?4.31 ? 51 FEF 75% (L/sec) ?0.40 ?1.26 ? 31 FEF 25-75% (L/sec) ? 1.39 ?2.58 ? 54 FEF Max (L/sec) ? 10.18 ?8.51 ?12 0 FIVC (L) ? 3.77 FIF 50% (L/sec) ?4.60 ?4.56 ?1 01 FIF Max (L/sec) ?4.61 ?3.62 ?1 27 The FEV1 is normal, but the FEV1/FVC ratio are within normal limits. ??The inspiratory flow rates are within normal limits. IMPRESSION:(The PFT standard for spirometry has been c hanged as of (03/24/06) to NHANESIII, so the % predicted values might not correlat e to prior PFTs.) Normal Spirometry This preliminary report should not be used clinically unless reviewed and signed by a physician. SHANTELL SHARIF Specimen Anatomical Collection Method Collection Time Receive d Time (Source) Location / / Volume Laterality 01/18/2007 9:14 AM 7 CDT 10:04 AM CDT Transcripton Interface PFT ORDERABLES Performing Organization Address City/State/ZIP Code Phon e Number RADIOLOGY RESULTS documented in this encounter Visit Diagnoses Not on filedocumented in this encounter
--- OUTSIDE RECORDS SUMMARY | 2022-07-31 17:31 | XMS_ITS | Encounter Summary ---
:1940 Author Organization [place] Address [address] [place] [address] Care Team Providers Name Role Phone Unavailable Primary Care Provider Unavailable Encounter Details Date Type Department Care Team Description 09/15/2005 [facility] Bonita LLOYD [address] [place] [address] [place] [address] Social History Tobacco Use Types Packs/Day Years Used Date Never Assessed Sex Assigned at Date Recorded Not on file documented as of this encounter Plan of Treatment Not on filedocumented as of this encounter Procedures Procedure Name Priority Date/Time Associated Diagnosis Comme nts PSA TUMOR MARKER Routine 09/15/2005 4:03 PM Resul ts for this GREENSMAN procedure are i n the results section. documented in this encounter Results PSA tumor marker (09/15/2005 4:03 PM GREENSMAN) P athologist Signature PSA 0.41 0 - 4 ug/L MISYS Specimen Anatomical Collection Method Collection Time Receive d Time (Source) Location / / Volume Laterality 09/15/2005 4:03 PM 5 3:55 GREENSMAN PM GREENSMAN Irina Mandel MD LAB - BLOOD ORDERABLES Performing Organization Address City/State/ZIP Code Phon e Number MISYS documented in this encounter Visit Diagnoses Not on filedocumented in this encounter
--- OUTSIDE RECORDS SUMMARY | 2022-07-31 17:31 | XMS_ITS | Encounter Summary ---
:1940 Author Organization [facility] Address [address] [place] [address] Care Team Providers Name Role Phone Unavailable Primary Care Provider Unavailable Encounter Details Date Type Department Care Team Description 11/01/2004 Historic Results Allergy and Asthma Ortiz Shay Phillips-Wangensteen MD Building XXX RESIGNED XXX 2nd Floor, Clinic 2A [address] [facility] 516 [facility] [address] [place] [id number] [phone] Social History Tobacco Use Types Packs/Day Years Used Date Never Assessed Sex Assigned at Date Recorded Not on file documented as of this encounter Plan of Treatment Not on filedocumented as of this encounter Procedures Procedure Name Priority Date/Time Associated Comments Diagnosis C-REACTIVE PROTEIN Routine 11/01/2004 5:18 PM Res ults for this CLOCK SMITH procedure are i n the results section. HEMOGRAM DIFFERENTIAL Routine 11/01/2004 5:18 PM Results for this AND PLATELET CLOCK SMITH procedure are i n the results section. TRYPTASE Routine 11/01/2004 5:18 PM Results f or this [facility] procedure are i n the results section. THYROID PEROXIDASE Routine 11/01/2004 5:18 PM Res ults for this ANTIBODY [facility] procedure are i n the results section. PLATELET COUNT Routine 11/01/2004 5:18 PM Results for this CL[facility] procedure are i n the results section. IGE Routine 11/01/2004 5:18 PM Results f or this [facility] procedure are i n the results section. HEPATIC FUNCTION PANEL Routine 11/01/2004 5:18 PM Results for this [facility] procedure are i n the results section. COMPLEMENT TOTAL Routine 11/01/2004 5:18 PM Resul ts for this [facility] procedure are i n the results section. COMPLEMENT C3 Routine 11/01/2004 5:18 PM Results for this CL[facility] procedure are i n the results section. ANTINUCLEAR ANTIBODY Routine 11/01/2004 5:18 PM R esults for this SCREEN BY EIA [facility] procedure are in the results section. ANTI THYROGLOBULIN Routine 11/01/2004 5:18 PM Res ults for this ANTIBODY [facility] procedure are i n the results section. documented in this encounter Results Anti thyroglobulin antibody (11/01/2004 5:18 PM CLOCK SMITH) Analysis Performed At Patho logist Time Signature Thyroglobulin <20 <40 IU/mL MISYS Antibody Specimen Anatomical Collection Method Collection Time Receive d Time (Source) Location / / Volume Laterality 11/01/2004 5:18 PM 5 5:09 CLOCK SMITH PM CLOCK SMITH Ortiz Shay MD LAB - BLOOD ORDERABLES Performing Organization Address City/[facility]/ZIP Code Phon e Number MISYS Hepatic panel (11/01/2004 5:18 PM CLOCK SMITH) athologist Signature AST 35 0 - 55 U/L MISYS Protein Total 7.6 6.0 - 8.2 MISYS g/dL Albumin 4.2 3.2 - 4.5 MISYS g/dL ALT 34 0 - 70 U/L MISYS Alkaline 83 40 - 150 MISYS Phosphatase U/L Bilirubin 0.0 0.0 - 0.3 MISYS Conjugated mg/dL Bilirubin Delta 0.0 0.0 - 0.4 MISYS mg/dL Bilirubin Total 1.0 0.2 - 1.3 MISYS mg/dL Specimen Anatomical Collection Method Collection Time Receive d Time (Source) Location / / Volume Laterality 11/01/2004 5:18 PM 5 5:09 CLOCK SMITH PM CLOCK SMITH Ortiz Shay MD LAB - BLOOD ORDERABLES Performing Organization Address City/State/ZIP Code Phon e Number MISYS Complement C3 (11/01/2004 5:18 PM CLOCK SMITH) athologist Signature Complement C3 115 90 - 200 MISYS mg/dL Specimen Anatomical Collection Method Collection Time Receive d Time (Source) Location / / Volume Laterality 11/01/2004 5:18 PM 5 5:09 CLOCK SMITH PM CLOCK SMITH Ortiz Shay MD LAB - BLOOD ORDERABLES Performing Organization Address [facility] Phon e Number MISYS Complement total (11/01/2004 5:18 PM CLOCK SMITH) athologist [facility] Complement CH50 120 MISYS Total Comment: Unit: (Note) REFERENCE INTERVAL: Complement Activity, Total EIA Less than 60 Units ........ Low 60-144 Units .............. Normal 145 Units or greater ...... High The above test was performed at: [facility], [address] [facility] [address] Specimen Anatomical Collection Method Collection Time Receive d Time (Source) Location / / Volume Laterality 11/01/2004 5:18 PM 5 5:09 CLOCK SMITH PM CLOCK SMITH Ortiz Shay MD LAB - BLOOD ORDERABLES Performing Organization Address [facility] Phon e Number MISYS C-Reactive protein (11/01/2004 5:18 PM CLOCK SMITH) athologist [facility] C-Reactive 0.27 0.00 - 0.80 MISYS Protein mg/dL Specimen Anatomical Collection Method Collection Time Receive d Time (Source) Location / / Volume Laterality 11/01/2004 5:18 PM 5 5:09 CLOCK SMITH PM CLOCK SMITH Ortiz Shay MD LAB - BLOOD ORDERABLES Performing Organization Address [facility] Phon e Number MISYS Antinuclear antibody screen by EIA (11/01/2004 5:18 PM CLOCK SMITH) athologist [facility] GABE Screen by 2.5 MISYS EIA Comment: Interpretation: ??Weakly Positive Follow-up testing is not recommended un less clinically indicated. ??GABE samples are retained in the Protein Lab for 30 days. ??Please contact the laboratory to request additional tests. Specimen Anatomical Collection Method Collection Time Receive d Time (Source) Location / / Volume Laterality 11/01/2004 5:18 PM 5 5:09 CLOCK SMITH PM CLOCK SMITH Ortiz Shay MD LAB - BLOOD ORDERABLES Performing Organization Address [facility] Phon e Number MISYS Hemogram differential and platelet (11/01/2004 5:18 PM CLOCK SMITH) [facility] gist Method Time Signature MCV 89 78 - 100 MISYS fl MCH 30.5 26.5 - MISYS 33.0 pg MCHC 34.2 32.0 - MISYS 36.0 g/dL RDW 13.5 10.0 - MISYS 15.0 % WBC 6.9 4.0 - MISYS 11.0 10e9/L RBC Count 4.68 4.4 - 5.9 MISYS 10e12/L Hemoglobin 14.3 13.3 - MISYS 17.7 g/dL Hematocrit 41.8 40.0 - MISYS 53.0 % % Neutrophils 67 40 - 75 % MISYS % Lymphocytes 23 20 - 48 % MISYS % Monocytes 6 0 - 12 % MISYS % Eosinophils 4 0 - 6 % MISYS % Basophils 0 0 - 2 % MISYS Absolute 4.6 1.6 - 8.3 MISYS Neutrophil 10e9/L Absolute 1.6 0.8 - 5.3 MISYS Lymphocytes 10e9/L Absolute 0.4 0.0 - 1.3 MISYS Monocytes 10e9/L Absolute 0.3 0.0 - 0.7 MISYS Eosinophils 10e9/L Absolute 0.0 0.0 - 0.2 MISYS Basophils 10e9/L Diff Method Automated MISYS Method Specimen Anatomical Collection Method Collection Time Receive d Time (Source) Location / / Volume Laterality 11/01/2004 5:18 PM 5 5:09 CLOCK SMITH PM CLOCK SMITH Ortiz Shay MD LAB - BLOOD ORDERABLES Performing Organization Address City/State/ZIP Code Phon e Number MISYS (ABNORMAL) IgE (11/01/2004 5:18 PM CLOCK SMITH) athologist Signature IGE 592 (H) 0 - 114 MISYS KIU/L Specimen Anatomical Collection Method Collection Time Receive d Time (Source) Location / / Volume Laterality 11/01/2004 5:18 PM 5 5:09 CLOCK SMITH PM CLOCK SMITH Ortiz Shay MD LAB - BLOOD ORDERABLES Performing Organization Address City/State/ZIP Code Phon e Number MISYS (ABNORMAL) Thyroid peroxidase antibody (11/01/2004 5:18 PM CLOCK SMITH) athologist Signature Thyroid 169 (H) <35 IU/mL MISYS Peroxidase Antibody Specimen Anatomical Collection Method Collection Time Receive d Time (Source) Location / / Volume Laterality 11/01/2004 5:18 PM 5 5:09 CLOCK SMITH PM CLOCK SMITH Ortiz Shay MD LAB - BLOOD ORDERABLES Performing Organization Address [facility]/ZIP Code Phon e Number MISYS Tryptase (11/01/2004 5:18 PM CLOCK SMITH) athologist Signature Tryptase 8.8 MISYS Comment: Reference range: 0.4 to 10.9 Unit: ug/L (Note) TEST INFORMATION: Tryptase This test uses a kit designated by the mike aldana as for research use, not for clinical use. The performance characteristics of this test were valida beltran by [employer] The U.S. Food and Kojo g Administration (FDA) has not approved this test. The re sults are not intended to be used as the sole means fo r clinical diagnosis or patient management decision s. [employer] is authorized under Clinical Laboratory Imp rovement Amendments (CLIA) and by all states to p erform high- complexity testing. The above test was performed at: [facility], [address] [place] [address] Specimen Anatomical Collection Method Collection Time Receive d Time (Source) Location / / Volume Laterality 11/01/2004 5:18 PM 5 5:09 CLOCK SMITH PM CLOCK SMITH Ortiz Shay MD LAB - BLOOD ORDERABLES Performing Organization Address City/[facility] Phon e Number MISYS Platelet count (11/01/2004 5:18 PM CLOCK SMITH) athologist Signature Platelet Count 251 150 - 450 MISYS 10e9/L Specimen Anatomical Collection Method Collection Time Receive d Time (Source) Location / / Volume Laterality 11/01/2004 5:18 PM 5 5:53 CLOCK SMITH PM CLOCK SMITH Ortiz Shay MD LAB - BLOOD ORDERABLES Performing Organization Address City/[facility]/ZIP Code Phon e Number MISYS documented in this encounter Visit Diagnoses Not on filedocumented in this encounter
--- OUTSIDE RECORDS SUMMARY | 2022-07-31 17:31 | XMS_ITS | Encounter Summary ---
:1940 Author Organization [employer] Address [address] [facility] [place] [address] Care Team Providers Name Role Phone Unavailable Primary Care Provider Unavailable Encounter Details Date Type Department Care Team Description 03/12/2005 Historic Sales Outfitter [facility] Preet Mandel [facility] EMD Oncology [address] [facility] [address] [phone] [place], 1st Floor ([place]) [place] [address] Social History Tobacco Use Types Packs/Day Years Used Date Never Assessed Sex Assigned at Date Recorded Not on file documented as of this encounter Progress Notes Eron Mandel MD - 10/01/2011 2:37 AM CLINICAL EXERCISE SPECIALIST PROBLEM:Prostate cancer. Larisa Score 6. PSA 4.8. Status post radiation therapy completed 02/15/01. SUBJECTIVE:Mr. Xiong continues to do well. He has no particular problems. He has nocturia one time per night. He has got a good urinary stream. No frequency or urgency. His bowel movements are normal. He has had some recent ringing in his ears, which he attributes to a cold. He had a colonoscopy, which was unremarkable one year ago. OBJECTIVE:His weight is 178.5. His PSA is 0.29, which is down from a year ago when it was 0.39. RECTAL: Reveals a flat, smooth prostate without nodularity or masses. IMPRESSION: No evidence of recurrence. DISPOSITION: Mr. Xiong will be returning in one year for a repeat evaluation. Thank you for allowing me to participate in his care. ERON MANDEL MD Supervisor [facility] Dictated by: ERON MANDEL MD MT: [email or web address] Document: [id number] CC: MD SAGAR HENRY MD CHARLES MEYERS, MD LCN: [email or web address] DSC: 03/12/2005 [facility] Division of [place], [place] Name: MR#: : ELVIRA: REBEKAH [id number] 1940 03/12/2005 THERAPEUTIC RADIOLOGY PROGRESS/FOLLOW UP NOTE Page 1 of 1 ICAL EXERCISE SPECIALIST documented in this encounter Plan of Treatment Not on filedocumented as of this encounter Visit Diagnoses Not on filedocumented in this encounter
--- OUTSIDE RECORDS SUMMARY | 2022-07-31 17:31 | XMS_ITS | Encounter Summary ---
:1940 Author Organization [facility] Address [address] [place] [address] Care Team Providers Name Role Phone Unavailable Primary Care Provider Unavailable Encounter Details Date Type Department Care Team Description 03/06/[address] [facility] Bonita LLOYD [address] [place] [address] [place] [address] Social History Tobacco Use Types Packs/Day Years Used Date Never Assessed Sex Assigned at Date Recorded Not on file documented as of this encounter Plan of Treatment Not on filedocumented as of this encounter Procedures Procedure Name Priority Date/Time Associated Diagnosis Comme nts PSA TUMOR MARKER Routine 03/06/2005 7:23 AM Resul ts for this CDT procedure are i n the results section. documented in this encounter Results PSA tumor marker (03/06/2005 7:23 AM CDT) P athologist Signature PSA 0.29 0 - 4 ug/L MISYS Specimen Anatomical Collection Method Collection Time Receive d Time (Source) Location / / Volume Laterality 03/06/2005 7:23 AM 5 7:24 CDT AM CDT Irina Mandel MD LAB - BLOOD ORDERABLES Performing Organization Address City/State/ZIP Code Phon e Number MISYS documented in this encounter Visit Diagnoses Not on filedocumented in this encounter
--- OUTSIDE RECORDS SUMMARY | 2022-07-31 17:31 | XMS_ITS | Encounter Summary ---
:1940 Author Organization [facility] Address [address] [place] [address] Care Team Providers Name Role Phone Unavailable Primary Care Provider Unavailable Encounter Details Date Type Department Care Team Description 12/06/2007 Historic Results Allergy and Asthma Ortiz Shay Phillips-Wangensteen MD Building XXX RESIGNED XXX 2nd Floor, Clinic 2A [address] [facility] [address] [facility] [address] [place] [phone] Social History Tobacco Use Types Packs/Day Years Used Date Never Assessed Sex Assigned at Date Recorded Not on file documented as of this encounter Plan of Treatment Not on filedocumented as of this encounter Procedures Procedure Name Priority Date/Time Associated Comments Diagnosis TSH Routine 12/06/2007 10:08 Results for this AM PARTS PRODUCT ANALYST procedure are i n the results section. TRYPTASE Routine 12/06/2007 10:08 Results for this AM PARTS PRODUCT ANALYST procedure are i n the results section. THYROID PEROXIDASE Routine 12/06/2007 10:08 Resul ts for this ANTIBODY AM PARTS PRODUCT ANALYST procedure are i n the results section. T4 FREE Routine 12/06/2007 10:08 Results for this AM PARTS PRODUCT ANALYST procedure are i n the results section. T3 TOTAL Routine 12/06/2007 10:08 Results for this AM PARTS PRODUCT ANALYST procedure are i n the results section. IGE Routine 12/06/2007 10:08 Results for this AM PARTS PRODUCT ANALYST procedure are i n the results section. COMPLEMENT TOTAL Routine 12/06/2007 10:08 Results for this AM PARTS PRODUCT ANALYST procedure are i n the results section. ANTINUCLEAR ANTIBODY Routine 12/06/2007 10:08 Res ults for this SCREEN BY EIA AM PARTS PRODUCT ANALYST procedure are in the results section. documented in this encounter Results Complement total (12/06/2007 10:08 AM PARTS PRODUCT ANALYST) athologist Signature Complement CH50 142 MISYS Total Comment: Reference range: 60 to 144 Unit: (Note) REFERENCE INTERVAL: Complement Activity, Total EIA 59 Units or less .......... Low 60-144 Units .............. Normal 145 Units or greater ...... High Performed by [facility], [address] [place] [id number] [email or web address], ??Kenny Hoffmann MD - Lab. Director Specimen Anatomical Collection Method Collection Time Receive d Time (Source) Location / / Volume Laterality 12/06/2007 10:08 12/06/2007 9:57 AM PARTS PRODUCT ANALYST AM PARTS PRODUCT ANALYST Ortiz Shay MD LAB - BLOOD ORDERABLES Performing Organization Address [facility] Phon e Number MISYS Antinuclear antibody screen by EIA (12/06/2007 10:08 AM PARTS PRODUCT ANALYST) athologist Signature GABE Screen by 3.3 MISYS EIA Comment: Interpretation: ??Positive GABE screen results > 3 are significant and follow-up testing is recommended. GABE samples are retained in the Protein Lab for 30 days. ??Please contact the laboratory to request additional tests. Specimen Anatomical Collection Method Collection Time Receive d Time (Source) Location / / Volume Laterality 12/06/2007 10:08 12/06/2007 9:57 AM PARTS PRODUCT ANALYST AM PARTS PRODUCT ANALYST Ortiz Shay MD LAB - BLOOD ORDERABLES Performing Organization Address City/[facility] Phon e Number MISYS T4 free (12/06/2007 10:08 AM PARTS PRODUCT ANALYST) athologist Signature T4 Free 1.38 0.70 - 1.85 MISYS ng/dL Specimen Anatomical Collection Method Collection Time Receive d Time (Source) Location / / Volume Laterality 12/06/2007 10:08 12/06/2007 9:57 AM PARTS PRODUCT ANALYST AM PARTS PRODUCT ANALYST Ortiz Shay MD LAB - BLOOD ORDERABLES Performing Organization Address City/[facility] Phon e Number MISYS (ABNORMAL) IgE (12/06/2007 10:08 AM PARTS PRODUCT ANALYST) P athologist Signature IGE 462 (H) 0 - 114 MISYS KIU/L Specimen Anatomical Collection Method Collection Time Receive d Time (Source) Location / / Volume Laterality 12/06/2007 10:08 12/06/2007 9:57 AM PARTS PRODUCT ANALYST AM PARTS PRODUCT ANALYST Ortiz Shay MD LAB - BLOOD ORDERABLES Performing Organization Address [facility] Phon e Number MISYS T3 total (12/06/2007 10:08 AM PARTS PRODUCT ANALYST) [facility] gist Method Time Signature Triiodothyronine 121 60 - 181 MISYS (T3) ng/dL Specimen Anatomical Collection Method Collection Time Receive d Time (Source) Location / / Volume Laterality 12/06/2007 10:08 12/06/2007 9:57 AM PARTS PRODUCT ANALYST AM PARTS PRODUCT ANALYST Ortiz Shay MD LAB - BLOOD ORDERABLES Performing Organization Address [facility] Phon e Number MISYS (ABNORMAL) Thyroid peroxidase antibody (12/06/2007 10:08 AM PARTS PRODUCT ANALYST) athologist Signature Thyroid 74 (H) <35 IU/mL MISYS Peroxidase Antibody Specimen Anatomical Collection Method Collection Time Receive d Time (Source) Location / / Volume Laterality 12/06/2007 10:08 12/06/2007 9:57 AM PARTS PRODUCT ANALYST AM PARTS PRODUCT ANALYST Ortiz Shay MD LAB - BLOOD ORDERABLES Performing Organization Address [facility] Phon e Number MISYS Tryptase (12/06/2007 10:08 AM PARTS PRODUCT ANALYST) P athologist Signature Tryptase 6.3 MISYS Comment: Reference range: 0.4 to 10.9 Unit: ug/L (Note) TEST INFORMATION: Tryptase This test uses a kit designated by the katya as for research use, not for clinical use. The performance characteristics of this test were valida beltran by [employer] The U.S. Food and Kojo g Administration (FDA) has not approved this test. The re sults are not intended to be used as the sole means fo r clinical diagnosis or patient management decision s. [employer] is authorized under Clinical Laboratory Imp rovement Amendments (CLIA) and by all states to p erform high- complexity testing. Performed by [facility], [facility] [place] [address] [email or web address], ??Kenny Hoffmann MD - Lab. Director Specimen Anatomical Collection Method Collection Time Receive d Time (Source) Location / / Volume Laterality 12/06/2007 10:08 12/06/2007 9:57 AM PARTS PRODUCT ANALYST AM PARTS PRODUCT ANALYST Ortiz Shay MD LAB - BLOOD ORDERABLES Performing Organization Address City/State/ZIP Code Phon e Number MISYS TSH (12/06/2007 10:08 AM PARTS PRODUCT ANALYST) athologist Signature TSH 3.18 0.4 - 5.0 MISYS mU/L Specimen Anatomical Collection Method Collection Time Receive d Time (Source) Location / / Volume Laterality 12/06/2007 10:08 12/06/2007 9:57 AM PARTS PRODUCT ANALYST AM PARTS PRODUCT ANALYST Ortiz Shay MD LAB - BLOOD ORDERABLES Performing Organization Address City/State/ZIP Code Phon e Number MISYS documented in this encounter Visit Diagnoses Not on filedocumented in this encounter
--- OUTSIDE RECORDS SUMMARY | 2022-07-31 17:31 | XMS_ITS | Encounter Summary ---
:1940 Author Organization [facility] Address [address] [place] [address] Care Team Providers Name Role Phone Unavailable Primary Care Provider Unavailable Encounter Details Date Type Department Care Team Description 12/06/2007 Office Visit-[facility] Allergy and Asthma Ortiz Shay Phillips-Wangensteen AL Building XXX RESIGNED XXX 2nd Floor, Clinic 2A [address] [facility] [address] [address] [phone] Social History Tobacco Use Types Packs/Day Years Used Date Never Assessed Sex Assigned at Date Recorded Not on file documented as of this encounter Progress Notes Ortiz Shay - 12/06/2007 8:50 AM CST Drill Grinder: Ortiz Shay Status: Final - Signature Encounter: 06 Dec 2007 Type: Allergy Chart Note Pulmonary, Allergy and Critical Care Department of Medicine [place] Mail Code [address] [place] [address] Office: [phone] Allergy and Asthma Clinic [facility] Fifth Floor, Clinic 5A [address] [place] [address] RE: Abraham Mancuso : 1940 ELVIRA: 12/06/2007 OUTPATIENT VISIT NOTE HISTORY OF PRESENT ILLNESS: Patient is a 66-year-old gentleman who we are seeing with regard to urticaria and angioedema which has been varying a great deal in intensity. At present he is on doxepin 20mg a day, ranitidine 150 mg b.i.d., Singulair 10 mg a day, Camelia 180 mg q.d. His hives have been stable but they did go a month without symptoms. We tried to cut the doxepin but his symptoms recurred. He is now back on his usual medications. REVIEW OF SYSTEMS: Constitutional, allergy, eyes, ENT, respiratory, cardiovascular, GI, , hematologic, endocrine, skin, musculoskeletal, neurological, psychiatric were all negative outside of what I mentioned in previous notes and above. He is on Prozac for psychiatric problem, Lipitor for increasedlipids, and Synthroid. PHYSICAL EXAMINATION: Physical examination today shows head, EENT unremarkable. No edema was noted in the nasal mucosa. Neck examination revealed no abnormal neck vein distention. Lungs revealed no wheezes or rhonchi. Heart: No murmurs or arrhythmias. Abdominal examination without organomegaly. Skin examination negative except for 1+ dermatographism. Neurological examination negative. Psychiatric negative. Weight slightly increased. ASSESSMENT: Urticaria and angioedema of unknown etiology. RECOMMENDATIONS: 1. Yearly evaluation by his primary care doctor. 2. Continuation of present medications for the timebeing. 3. CH50, ODILON, IgE, thyroid antibodies, thyroid functions, tryptase, 24 hour urine for histamine. 4. To be reevaluated after above is finished and he gets reevaluated by primary care doctor. Oritz Shay M.D. dairy husbandman Director, Asthma & Allergy Program MB:[email or web address] Electronically signed by:Sanju Shay M.D. Dec 22 2007 5:28PM TREATMENT PLANT OPERATOR TMENT PLANT OPERATOR documented in this encounter Plan of Treatment Not on filedocumented as of this encounter Visit Diagnoses Not on filedocumented in this encounter
--- OUTSIDE RECORDS SUMMARY | 2022-07-31 17:32 | XMS_ITS | Encounter Summary ---
:1940 Author Organization [facility] Address [address] [place] [address] Care Team Providers Name Role Phone Unavailable Primary Care Provider Unavailable Reason for Visit Appointment Request (Routine) - Closed Specialty Diagnoses / Procedures Referred By Contact Refer red To Contact Family Medicine Referral ID Status Reason Start Date Expiration Date Visits Requ ested Visits Authorized [id number] Closed 08/21/2021 08/21/2022 1 1 Encounter Details Date Type Department Care Team Description 08/30/2021 Immunization Department of Family Medicine, [facility], in [address] [place] [address] Social History Tobacco Use Types Packs/Day Years Used Date Smoking Tobacco: Never Assessed Sex Assigned at Date Recorded Not on file documented as of this encounter Plan of Treatment Not on filedocumented as of this encounter Visit Diagnoses Not on filedocumented in this encounter
--- OUTSIDE RECORDS SUMMARY | 2022-07-31 17:32 | XMS_ITS | Encounter Summary ---
:1940 Author Organization [facility] Address [address] [place] [address] Care Team Providers Name Role Phone Unavailable Primary Care Provider Unavailable Reason for Referral Specialty Diagnoses / Procedures Referred By Contact Refer red To Contact [address] [address] Referral ID Status Reason Start Date Expiration Date Visits Requ ested Visits Authorized A ARTS PROFESSOR Encounter Details Date Type Department Care Team Description 12/12/2020 Immunization Department of [facility] Itzel Armijo Enco unter For COVID-19 Medicine, [facility] Vaccine Immunization [facility], in Clear, [facility] [address] [facility] (Primary Dx) [address] [address] [place], [place] [phone] (Work) [phone] Social History Tobacco Use Types Packs/Day Years Used Date Smoking Tobacco: Never Assessed Sex Assigned at Date Recorded Not on file documented as of this encounter Plan of Treatment Scheduled Referrals Name Type Priority Associated Diagnoses Order S chedule Covid immunization Outpatient Referral Routine Encounter For E xpected: office visit COVID-19 Vaccine 01/02/2021, Subsequent; 21 days Immunization Expires: 12/12/2023 documented as of this encounter Visit Diagnoses Diagnosis Encounter For COVID-19 Vaccine Immunizat ion - Primary documented in this encounter
--- OUTSIDE RECORDS SUMMARY | 2022-07-31 17:32 | XMS_ITS | Encounter Summary ---
:1940 Author Organization [facility] Address [address] [place] [address] Care Team Providers Name Role Phone Unavailable Primary Care Provider Unavailable Reason for Visit Reason Onset Date Comments Testing For Upper Respiratory Virus Symptoms 03/06/2021 Encounter Details Date Type Department Care Team Description 03/06/2021 External Outreach Department of [facility] Messi Calzadaold Contact With And Medicine, [facility] Isabel Spann (Suspected) Exposure Building, in [address] To COVID-19 (Primary [place], [place] Dx) [address] [facility] [address] [place], [place] [phone] (Work) [phone] Social History Tobacco Use Types Packs/Day Years Used Date Smoking Tobacco: Never Assessed Sex Assigned at Date Recorded Not on file documented as of this encounter Progress Notes Gerry Douglass, RYuN. - 03/06/2021 9:59 AM CDT Encounter created for symptomatic infectious disease screening with possible COVID, Influenza, RSV, and/or Group A Strep testing. documented in this encounter Miscellaneous Notes Addendum Note - Gerry Douglass RChayo. - 03/06/2021 9:59 AM CDT Addended by: GERRY DOUGLASS on: 03/06/2021 12:04 PM Modules accepted: Orders documented in this encounter Plan of Treatment Not on filedocumented as of this encounter Visit Diagnoses Diagnosis Contact With And (Suspected) Exposure To COVID-19 - Primary documented in this encounter Additional Health Concerns Infection Onset Date Last Indicated Resolved Time COVID19 Pending 03/06/2021 03/06/2021 03/06/2021 12:04 PM CDT documented as of this encounter
--- OUTSIDE RECORDS SUMMARY | 2022-07-31 17:32 | XMS_ITS | Encounter Summary ---
:1940 Author Organization [facility] Address [address] [place] [address] Care Team Providers Name Role Phone Unavailable Primary Care Provider Unavailable Encounter Details Date Type Department Care Team Description 05/29/2017 Hospital Encounter HX [facility] Nettie Madison M.D. [address] [place] [address] [place] [address] (Wo rk) Social History Tobacco Use Types Packs/Day Years Used Date Smoking Tobacco: Never Assessed Sex Assigned at Date Recorded Not on file documented as of this encounter Plan of Treatment Not on filedocumented as of this encounter Visit Diagnoses Not on filedocumented in this encounter
--- OUTSIDE RECORDS SUMMARY | 2022-07-31 17:32 | XMS_ITS | Encounter Summary ---
:[address] [facility] Address [address] [place] [address] Care Team Providers Name Role Phone Unavailable Primary Care Provider Unavailable Reason for Visit Reason Comments Communication Encounter Details Date Type Department Care Team Description 09/15/2017 Clinical Communication Department of Sebastian Lamb, Communication Medicine, [facility], in [facility] [address] [place], [place] [address] [address] [place], [place] [phone] [phone] (Work) [phone] Social History Tobacco Use Types Packs/Day Years Used Date Smoking Tobacco: Never Assessed Sex Assigned at Date Recorded Not on file documented as of this encounter Miscellaneous Notes Telephone Encounter - Reanna Kaplan APRN, R.N. - 09/15/2017 4:53 PM DIRECTOR EDUCATION Noted, thank you. CTOR EDUCATION Telephone Encounter - Barbara Ocampo L.PYuN. - 09/15/2017 4:44 PM CST Daughter contacted and notified that Dr. Sebastian Santana is out of the office until 09/21/17 . Daughter was encouraged to contact patients primary care physician for further direction. CTOR EDUCATION Telephone Encounter - Marily Bergman - 09/15/2017 3:46 PM CST Pts daughter Mira calling, pt is being discharged from [facility] needing to schedule pt, post hosp follow up with in 5 days, discharging with a catheter and urinating bright red red blood. Please call back CTOR EDUCATION documented in this encounter Plan of Treatment Not on filedocumented as of this encounter Visit Diagnoses Not on filedocumented in this encounter
--- OUTSIDE RECORDS SUMMARY | 2022-07-31 17:32 | XMS_ITS | Encounter Summary ---
:1940 Author Organization [facility] Address [address] [place] [address] Care Team Providers Name Role Phone Unavailable Primary Care Provider Unavailable Reason for Referral Specialty Diagnoses / Procedures Referred By Contact Refer red To Contact Itzel Armijo M.D. [facility] [address] [place] [phone] Referral ID Status Reason Start Date Expiration Date Visits Requ ested Visits Authorized NTEER SERVICES SUPERVISOR Encounter Details Date Type Department Care Team Description 11/27/2020 Orders Only [facility] mitesh Armijo M.D. [address] [place] [phone] (Wo rk) Social History Tobacco Use Types Packs/Day Years Used Date Smoking Tobacco: Never Assessed Sex Assigned at Date Recorded Not on file documented as of this encounter Plan of Treatment Scheduled Referrals Name Type Priority Associated Order Schedule Diagnoses Covid immunization Outpatient Referral Routine Ex pected: office visit Initial 021 (Approximate), Expires: 11/27/2021 documented as of this encounter Visit Diagnoses Not on filedocumented in this encounter
--- OUTSIDE RECORDS SUMMARY | 2022-07-31 17:32 | XMS_ITS | Clinical Summary ---
:1940 Author Organization [facility] [place] [address] Care Team Providers Name Role Phone Oscar Arevalo MD Primary Care Provider [phone] Allergies Active Allergy Reactions Severity Noted Date Comments Aspirin *Unknown 08/18/2012 From scanned document Diatrizoate Meglumine (Iv Hives 11/02/2012 hi ves Contrast Dye) Iodine Hives 04/09/2015 Lisinopril *Unknown 08/18/2012 From scanned document. Ask patient if med has side effect (i. e. Cough) as oppos ed to allergic reaction please . Penicillins *Unknown 08/18/2012 From scanned document [employer] Hives 07/07/2017 Sulfa (Sulfonamide *Unknown 08/18/2012 From scan lauren Antibiotics) document Sulfasalazine *Unknown - Childhood 11/01/2012 Rxn Medications Medication Sig Dispensed Refills Start End Status Date Date Aluminum Take 15 mL by 0 Active Hydrox-Magnesium Carb mouth 2 times (GAVISCON) 95-358 mg/15 daily if needed. mL susp cetirizine (ZYRTEC) 10 Take 10 mg by 0 Active mg tablet mouth once daily if needed for Other (Specify). fluticasone (50 mcg per Inhale 1 Sparkman 0 Active actuation) nasal into both solution (FLONASE) nostrils 2 times daily if needed for Rhinitis. hydrocortisone 1 % Apply topically 0 Active cream to affected 017 area(s) 4 times daily if needed (for area of skin irritation from cardioversion patches). EPINEPHrine (EPIPEN) Inject 0.3 mg 2 Each 2 Active 0.3 mg/0.3 mL intramuscular 019 injectionIndications: one time if Allergy, sequela needed for Allergic Reaction. tamsulosin (FLOMAX) 0.4 Take 1 capsule 90 capsule 3 Active mg capsuleIndications: by mouth once 020 Urinary retention with daily after a incomplete bladder meal. emptying levothyroxine Take 1 Tablet 90 tablet. 0 A ctive (SYNTHROID) 125 mcg (125 mcg) by 021 tabletIndications: mouth before Hypothyroidism breakfast. (acquired) amLODIPine (NORVASC) 5 Per pt taking 5 180 tablet. 3 Active mg tabletIndications: mg am .05/14/21 021 Essential hypertension with goal blood pressure less than 140/90 omeprazole (PRILOSEC) TAKE 1 CAPSULE 30 Capsule 0 Active 20 mg Delayed-Release BY MOUTH EVERY 021 capsuleIndications: DAY BEFORE A Gastroesophageal reflux MEAL disease, unspecified whether esophagitis present atorvastatin (LIPITOR) Take 1 Tablet 90 Tablet 0 Active 40 mg (40 mg) by mouth 022 tabletIndications: Pure once daily in hypercholesterolemia the evening. Schedule with cardiology for additional refills. sotaloL (BETAPACE) 120 Take 1 Tablet 180 Tablet 0 Active mg tabletIndications: (120 mg) by 022 Chronic atrial mouth in the fibrillation (HC) morning and 1 Tablet (120 mg) in the evening. Take before meals. Schedule with cardiology for additional refills.. finasteride (PROSCAR) 5 Take 1 Tablet (5 90 Tablet 0 Active mg tabletIndications: mg) by mouth 022 BPH with urinary every morning. obstruction Further refills need appointment FLUoxetine (PROZAC) 40 TAKE 1 CAPSULE 30 Capsule 0 Active mg capsuleIndications: BY MOUTH EVERY 022 Anxiety MORNING rivaroxaban (Xarelto) Take 1 Tablet 90 Tablet 0 Active 20 mg (20 mg) by mouth 022 tabletIndications: once daily with Paroxysmal atrial evening meal. fibrillation (HC) Xarelto 20 mg TAKE 1 TABLET BY 90 Tablet 3 06/18/2 tabletIndications: MOUTH EVERY DAY 2021 Paroxysmal atrial WITH THE EVENING fibrillation (HC) MEAL Active Problems Problem Noted Date Vasovagal syncope 04/24/2019 Acute non-recurrent sphenoidal sinusitis 04/24/2019 Atrial flutter, chronic 06/04/2017 Urinary retention with incomplete bladder emptying 04/2017 Paroxysmal atrial fibrillation 05/30/2017 SOB (shortness of breath) 05/30/2017 Febrile illness 05/30/2017 Anxiety 05/30/2017 Obesity 05/30/2017 Alcohol abuse 05/30/2017 GERD (gastroesophageal reflux disease) 05/30/2017 Sensorineural hearing loss, bilateral 11/19/2015 Nasal lesion 02/02/2014 Hypoglycemia 09/28/2013 Unspecified ptosis of eyelid 10/12/2012 Prostate CA Overview: lupron, radiation Unspecified hypothyroidism Pure hypercholesterolemia Unspecified essential hypertension Encounters Date Type Specialty Care Team Description 07/25/2022 Refill Oscar Miner MD Refill Request (Xarelto) 07/20/2022 Refill VinodSabino toscano Ref ill Request (Fluoxetine) 06/26/2022 Refill VinodSabino toscano Ref ill Request (Fluoxetine) 06/06/2022 Telephone Oscar Miner MD Refill Request 06/02/2022 Telephone Oscar Miner MD Need Me ds 05/27/2022 Refill VinodSabino toscano Ref ill Request (Fluoxetine) 05/27/2022 Refill Oscar Miner MD Refill Request (Atorvastatin, Sotalol) from Last 3 Months Immunizations Name Administration Dates Next Due Influenza, High-dose Inactivated 07/30/2016, 07/24/2015 Influenza, High-dose Quadrivalent 07/20/2020 Inactivated Influenza, IIV3 (Age >=3 years) 08/30/2017, 08/27/2014, 1012/2012, 07/24/2012 Influenza, Inactivated IIV3 (Age 65+ 07/04/2019, 08/26/2018 Years) Preserv Free Pneumococcal Poly,23-Valent 08/09/2010 (Pneumovax) Tdap 10/12/2012 Zoster (Shingrix-RZV, recombinant) 08/23/2019, 06/15/2019 Zoster (Zostavax-ZVL, live) 10/01/2010 Family History Medical History Relation Name Comments Atrial fibrillation Brother Other Father Alzhiemers Alcohol/Drug Maternal Grandmother Alcohol/Drug Mother Other Mother Alzhiemers Alzheimer's disease Other Atrial fibrillation Sister 2 Cancer-breast Sister 3 Alzheimer's disease Sister 4 Other Sister 4 dementia Relation Name Status Comments Brother Alive Father (Age 74) Maternal Grandmother Mother (Age 81) Other Sister 1 Alive Sister 2 Alive Sister 3 Sister 4 Social History Tobacco Use Types Packs/Day Years Used Date Former Smoker Cigarettes 2 40 1955 - 996 Smokeless Tobacco: Never Used Tobacco Cessation: Counseling Given: Yes Alcohol Use Standard Drinks/Week Comments Yes 40 (1 standard drink = 0.6 oz pure 2 gla sses white wine before dinner, alcohol) 2 at dinner, 2 after dinner Alcohol Habits Answer Date Recorded How often do you have a drink 4 or more times a week 019 containing alcohol? How many drinks containing alcohol do 5 or 6 you have on a typical day when you are drinking? How often do you have six or more Never 2018 drinks on one occasion? Comment: 2 glasses white wine before 04/24/2019 dinner, 2 at dinner, 2 after dinner Sex Assigned at Date Recorded Not on file Obstetrics History Last Filed Vital Signs Vital Sign Reading Time Taken Comments Blood Pressure 132/68 05/14/2021 12:56 PM CDT Pulse 48 05/14/2021 12:56 PM CDT Temperature 37 ??C (98.6 ??F) 04/01/2021 9:58 PM CDT Respiratory Rate 18 04/01/2021 9:58 PM CDT Oxygen Saturation 98% 05/14/2021 12:56 PM CDT Inhaled Oxygen Concentration - - Weight 95.7 kg (211 lb) 05/14/2021 12:56 PM CDT Height 172.7 cm (5' 8) 05/14/2021 12:56 PM CDT Body Mass Index 32.08 05/14/2021 12:56 PM CDT Plan of Treatment Upcoming Encounters Date Type Specialty Care Team Description 09/26/2022 Office Visit Oscar Miner MD [address] [address] (Wo rk) Health Maintenance Due Date Last Done Comments Pneumococcal series for age 65+ (2 08/09/2011 08/09/2010 - PCV) Medicare Wellness for age 65+ 04/08/2016 04/09/2015, 2011 Depression screening for age 12+ 08/06/2021 08/06/2020, 09/2020, 06/02/2019, Additional history exists COVID-19 vaccine series (4 - 10/25/2021 08/30/2021, 021, Booster for Pfizer series) 12/12/2020 BMI (ht and wt on same day) for 05/14/2022 05/14/2021, 03/26, age 18+ 09/28/2019, Additional history exists Influenza for age 65+ 06/26/2022 07/20/2020, 07/04/2019, 08/26/2018, Additional history exists Tetanus booster 10/12/2022 10/12/2012 Tdap Completed 10/12/2012 Zoster (shingles) series for age Completed 08/23/2019, , 50+ 10/01/2010 Results Not on filefrom Last 3 Months Insurance Payer Benefit Plan / Subscriber ID Effective Dates Phone Addre ss Type Group MEDICARE PART A MEDICARE PART A [id number] 2005-Presen ATTN: CLAIMS - HB USE ONLY HB ONLY t [address] [place] [address] MEDICARE PART B MEDICARE PART B [id number] 2007-Presen ATTN: CLAIMS - HB USE ONLY HB ONLY t [address] [place] [address] BLUE CROSS BLUE CROSS [id number] 2016-Presen [address] [place] [id number] BLUE CROSS MR BLUE CROSS [id number] 2016-Presen [address] [address] [place] [phone] Advance Directives Documents on File Type Date Recorded Patient Regulatory Auditor Explanati on Healthcare Directive 03/16/2017 2:27 PM 12/18/16 Latest Code Status on File Code Status Date Activated Date Inactivated Comments Full Code 04/24/2019 8:52 PM 04/25/2019 3:24 PM Code Status Discussion: Discussed Full Code 07/13/2017 6:54 AM 07/13/2017 7:56 PM Full Code 07/07/2017 10:18 AM 07/07/2017 4:24 PM DNR 05/30/2017 1:04 AM 06/01/2017 4:40 PM Code Status Discussion: Per Advance Care Plan Full Code 05/29/2017 11:10 PM 05/30/2017 1:04 AM Code Status Discussion: Not Discussed Care Teams Driver Wheelchair Relationship Specialty Start Date End Date Oscar Arevalo MD PCP - General Family Practice 05/14/211999 [place] [address]
--- OUTSIDE RECORDS SUMMARY | 2022-07-31 17:32 | XMS_ITS | Encounter Summary ---
:1940 Author Organization [facility] Address [address] [place] [address] Care Team Providers Name Role Phone Unavailable Primary Care Provider Unavailable Reason for Visit Reason Onset Date Comments Outpatient COVID-19 Testing 09/18/2020 Encounter Details Date Type Department Care Team Description 09/18/2020 External Outreach Department of Naman Calzada Infect ion Upper Internal Medicine in J, D.[facility]. Respiratory (Primary [place], [place] [address] Dx) [address] [place] [phone] Social History Tobacco Use Types Packs/Day Years Used Date Smoking Tobacco: Never Assessed Sex Assigned at Date Recorded Not on file documented as of this encounter Progress Notes Nai Ramsey R.N. - 09/18/2020 3:45 PM CST Encounter created for the drive-through COVID-19 testing. TRY FARMWORKER documented in this encounter Miscellaneous Notes Addendum Note - Nai Ramsey R.N. - 09/18/2020 3:45 PM POULTRY FARMWORKER Addended by: NAI RAMSEY on: 09/19/2020 06:30 PM Modules accepted: Orders TRY FARMWORKER documented in this encounter Plan of Treatment Not on filedocumented as of this encounter Visit Diagnoses Diagnosis Infection Upper Respiratory - Primary documented in this encounter Additional Health Concerns Infection Onset Date Last Indicated Resolved Time COVID19 Pending 09/18/2020 09/18/2020 09/19/2020 6:30 PM POULTRY FARMWORKER documented as of this encounter
--- OUTSIDE RECORDS SUMMARY | 2022-07-31 17:32 | XMS_ITS | Encounter Summary ---
:1940 Author Organization [facility] Address [address] [place] [address] Care Team Providers Name Role Phone Unavailable Primary Care Provider Unavailable Encounter Details Date Type Department Care Team Description 01/08/2021 Immunization Department of Joseph Irby For COVID-19 Medicine, Tony Rojas M.D. Vaccine Immunization Building, in [address] [place] [address] [address] [facility] [address] [place], [place] [phone] (Work) [phone] Social History Tobacco Use Types Packs/Day Years Used Date Smoking Tobacco: Never Assessed Sex Assigned at Date Recorded Not on file documented as of this encounter Plan of Treatment Not on filedocumented as of this encounter Visit Diagnoses Diagnosis Encounter For COVID-19 Vaccine Immunizat ion documented in this encounter
--- OUTSIDE RECORDS SUMMARY | 2022-07-31 17:32 | XMS_ITS | Encounter Summary ---
:1940 Author Organization [facility] Address [address] [place] [address] Care Team Providers Name Role Phone Unavailable Primary Care Provider Unavailable Reason for Visit Reason Comments COVID Inquiry Encounter Details Date Type Department Care Team Description 03/06/2021 Clinical Communication Department of Family Elsewhere, Pcp COVID Inquiry Medicine, [facility], in [place], [place] [address] [place] [address] Social History Tobacco Use Types Packs/Day Years Used Date Smoking Tobacco: Never Assessed Sex Assigned at Date Recorded Not on file documented as of this encounter Miscellaneous Notes Telephone Encounter - Jose Angel Dina Best - 03/06/2021 10:03 AM CDT What is the purpose of the call?: Requesting Testing Only Request Testing In the past 14 days are any of the following symptoms new to you and not related to an existing health condition?: New cough, New diarrhea, New nausea, New vomiting, New myalgias (muscle aches), New headache Because of symptoms, transfer patient to: : [facility] COVID Nurse Line (End Screening) Standard Appointment Process Have you tested positive for COVID-19 in the last 20 days OR do you have a pending COVID-19 test because you had symptoms?: No, neither apply Testing Recommendation Endpoint Is testing recommended? : Recommended to test Plan: Endpoint recommendation: Testing indicated, advised to be swabbed for COVID-19 Only , sent to [facility] located at [address] [place] [address]. The entrance is on the north side of the building. You must call [phone] during the hours of 7am to 6 pm (M-F) or 9 am to 4 pm (Sat and Sun) for an appointment time.You can also schedule via your Patient Online Services account. Testing hours are 8 am to 12 noon every day. When you arrive at the testing site: Remain in your vehicle and check-in by calling the number listed on the signage at the testing site or provided to you at the time you schedule your testingappointment. and Please avoid using public transportation per CDC recommendation. If you do not have personal transportation please self-quarantine until a personal transportation option is available. *Reminder if sending patient for testing in [facility] or [facility], route encounter to the correct testing pool. documented in this encounter Plan of Treatment Not on filedocumented as of this encounter Visit Diagnoses Not on filedocumented in this encounter Additional Health Concerns Infection Onset Date Last Indicated Resolved Time COVID19 Pending 03/06/2021 03/06/2021 03/06/2021 12:04 PM CDT documented as of this encounter
--- OUTSIDE RECORDS SUMMARY | 2022-07-31 17:32 | XMS_ITS | Clinical Summary ---
:[address] [facility] Address [address] [place] [address] Care Team Providers Name Role Phone Unavailable Primary Care Provider Unavailable Source Comments Patient records contain information from all sites at [facility]. For routine questions regarding patient records, call [phone] during business hours, M-F 8:00 AM - 5:00 PM Central Time. Record requests for emergency care only can be directed to [phone] at any time.[facility] Immunizations Name Administration Dates Next Due SARS-COV-2 (COVID-19) - PFIZER (12 years 08/30/2021, 2 021, 12/12/2020 or older) Social History Tobacco Use Types Packs/Day Years Used Date Smoking Tobacco: Never Assessed Sex Assigned at Date Recorded Not on file Plan of Treatment Health Maintenance Due Date Last Done Comments COVID-19 Vaccine (4 - Booster for 10/25/2021 08/30/2021, , Pfizer series) 12/12/2020 Depression Screening (Annual 10/26/2021 PHQ-2) Fall Risk Screen (Annual) 10/26/2021 Influenza Vaccine (#1) 2022 07/30/2021, 07/20/2020, 07/17/2020, Additional history exists DTaP,Tdap,and Td Vaccines (3 - Td 03/03/2032 03/03/2022, or Tdap) Zoster Vaccines Completed 08/23/2019, 06/15/2019, 10/01/2010 Pneumococcal vaccine (65+ years) Completed 02/25/2022, Insurance Payer Benefit Plan Subscriber ID Effective Phone Address Typ e / Group Dates MEDICARE MEDICARE A [id number] 2007-Pres [address] [place] [address] BLUE CROSS BCBS [place] [id number] 2016-Pres [phone] PO [place] X Cost Share BLUE SHIELD BLUE COST ent [phone] [place] [phone]
[2022-07-31 17:43] LABS: Albumin* 3.7 g/dL (3.3-5.0); Chloride* 107 mmol/L (96-114)
[2022-07-31 17:44] LABS: Potassium* 3.7 mmol/L (3.6-5.1); Sodium* 137 mmol/L (135-149)
[2022-07-31 17:45] LABS: SARS PCR* Negative SARS-CoV-2 (Negative)
[2022-07-31 17:46] LABS: Alkaline Phosphatase* 103 U/L (40-150); Aspartate Amino Transferase* 24 U/L (12-35); Bilirubin Total* 1.2 mg/dL (0.1-1.5); Carbon Dioxide* 24 mmol/L (20-32); Estimated Glomerular Filt Rate 75 ml/min; Total Protein* 6.6 g/dL (6.0-8.3)
[2022-07-31 17:47] LABS: Alanine Aminotransferase* 19 U/L (4-50); Blood Urea Nitrogen* 15 mg/dL (7-30); Calcium* 8.6 mg/dL (8.4-10.6); Glucose* 138 mg/dL (60-115); Magnesium* 1.8 mg/dL (1.5-2.6)
[2022-07-31 17:49] LABS: C Reactive Protein* 0.6 mg/dL (0.5-1.0)
[2022-07-31 17:54] LABS: Ethanol* < 0.01 % (0.01-0.03)
[2022-07-31 17:56] LABS: NT Pro B Type NatriureticPept* 697 PG/mL (0-450)
[2022-07-31 17:57] LABS: D Dimer Quantitative* 0.51 ug/ml (0.00-0.50)
[2022-07-31 18:30] LABS: Appearance Urine Clear (Clear); Bilirubin Urine Negative (Negative); Blood Urine Trace-lysed (Negative); Color Urine Yellow (Yellow); Glucose Urine Negative (Negative); Ketones Urine Trace (Negative); Leukocyte Esterase Urine Trace (Negative); Nitrite Urine Negative (Negative); Protein Urine Negative (Negative); Urobilinogen Urine 0.2 (0.2-1.0); pH Urine 6.5 (5.0-8.5)
[2022-07-31 19:09] LABS: RBC Urine 0-2 (0-2); WBC Urine 0-2 (0-5)
--- NOTE | 2022-07-31 19:09 | ED.NURSE ---
Pt HR noted to drop below 50s, frequent PVCs shown on the monitor. Palpable pulse in low 30's. Pt reporting SOB. MD notified. MD in to examine pt. Repeat EKG done. Pacer pads applied to pt. 2nd 18G IV started in R AC.
[2022-07-31 19:16] LABS: Troponin, Point-of-Care* 0.01 ng/ml (0.01-0.04)
[2022-07-31 19:27] LABS: Free T4 Free Thyroxine* 1.57 ng/dL (0.70-1.85)
--- NOTE | 2022-07-31 20:59 | W.PC.EDHO ---
Primary Language: Kinyarwanda Preferred Language: Orientation Status: x Alert & Oriented [] Slight Confusion [] Known Dx Dementia Transfers By: x Assist of 1 [] Assist of 2 [] Lift Description of Symptoms ED Triage Present Problem SOB, Dizzy, light headed, faint, fatigued, Description incontinent of bowel and bladder. Going on for a week. Did trip and fall before coming in and landing on left hip and buttock. Denies pain. Hx of afib. Cardioversion 4 years ago. Also concerned that he may have another UTI ED Triage Date of Onset of 07/24/22 Symptoms Female History Patient IV Insertion/Site Date of IV Line Insertion [ 07/31/22 Left Antecubital] Oxygen Administration Pulse Oximetry 95 Pulse Oximetry 97 Pulse Oximetry 97 Pulse Oximetry 96 Pulse Oximetry 97 Pulse Oximetry 97 Pulse Oximetry 95 Pulse Oximetry 97 Pulse Oximetry 97 Pulse Oximetry 96 Pulse Oximetry 94 Pulse Oximetry 96 Pulse Oximetry 95 Pulse Oximetry 97 Pulse Oximetry 97 Pulse Oximetry 97 Pulse Oximetry 97 Pulse Oximetry 97 Pulse Oximetry 97 Pulse Oximetry 97 Pulse Oximetry 94 Pulse Oximetry 94 Pulse Oximetry 97 Pulse Oximetry 97 Pulse Oximetry 97 Oxygen Delivery Method Room Air Oxygen Delivery Method Room Air Oxygen Delivery Method Room Air Oxygen Delivery Method Room Air Oxygen Delivery Method Room Air Cardiac Monitoring EKG Method 12 Lead
--- NOTE | 2022-07-31 20:59 | PM.IMHP1 ---
Hospitalist- H&P: HPI History of Present Illness Date Seen: 07/31/22 Chief complaint: Dizzy Light headed Fall Afib Narrative: Abraham Mancuso is a 82 year old male who presents to the ER with his daughter Olivia for dyspnea and fatigue. He has noted symptoms intermittently for approximately 6-9 months, but they have been much worse in the past week. He does not have accompanied chest pain, but his heart does feel like it is ?fluttering? during these episodes. He has had no fever or signs of acute illness. ER course and findings: - hospital monitor exhibited intermittent bradycardia with heart rate into the 30s, rebounded into the 50-60 range. Patient notably had his dyspnea symptoms during his bradycardic episodes - ER physician discussed the case with Cardiology, who recommend continuing Sotalol, noting that patient will need a pacemaker. Unfortunately, there is no bed availability in our transfer radius to a tertiary care center, so patient will be admitted overnight for cardiac monitoring while we await bed placement Patient's past medical history includes atrial fibrillation, 1st noted in 2013. He is anticoagulated on Xarelto and rate controlled with sotalol. He has been cardioverted twice. He sees Dr. Miner at the [facility]. 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 is primarily bed bound, so daughter Olivia assists with caregiving. He quit smoking remotely, drinks alcohol regularly without any history of alcohol withdrawal. Olivia would be medical decision maker if needed, and patient requests DNR/DNI status. He is amenable to temporary pacemaker placement if needed, as well as pharmacological treatment of cardiac arrhythmias. Review of Systems Status of ROS: Reports: 10 or more systems reviewed and unremarkable except as noted in History and below Narrative: Chronic nocturia and urinary incontinence. + fecal urgency. Years of chronic low back pain which recently was resolved after a course of physical therapy. He is very happy to have improvement of his chronic low back pain. Intermittent cough with some sputum production, no hemoptysis. Long history of depression, + flare over the past few months with his dyspnea. [facility] Medical History (Updated 07/31/22 @ 20:29 by Kim Kim MD) Alcohol intoxication History of alcohol abuse History of prostate cancer Surgical History (Updated 06/18/22 @ 09:25 by Lorenza Arias LPN) History of lumbar laminectomy Hx of appendectomy Hx of hemorrhoidectomy Hx of thyroidectomy Social History (Updated 07/31/22 @ 20:29 by Kim Kim MD) Smoking Status: Former smoker What tobacco products do you use: cigarettes Smoking quit date/years: >15 years ago Do you use any of these nicotine containing products: None Second hand tobacco smoke exposure: No How often do you have a drink containing alcohol: 4 or more times a week How many standard drinks containing alcohol do you have on a typical day: 5 or 6 How often do you have six or more drinks on one occasion: Daily or almost daily AUDIT-C Alcohol total score: 10 Non-prescribed substance use: denies use Meds Home Medications and Allergies Home Medications Medication Instructions Recorded Confirmed Type amlodipine 5 mg tablet 5 mg PO QDAY 06/18/22 07/31/22 History atorvastatin 40 mg tablet 40 mg PO QPM 06/18/22 07/31/22 History epinephrine 0.3 mg/0.3 mL 0.3 mg IM Q4H PRN 06/18/22 07/31/22 History injection, auto-injector finasteride 5 mg tablet 5 mg PO QDAY 06/18/22 07/31/22 History fluticasone propionate 50 2 spray intranasal QDAY 06/18/22 07/31/22 History mcg/actuation nasal spray,suspension levothyroxine 200 mcg tablet 200 mcg PO QDAY 06/18/22 07/31/22 History omeprazole 20 mg capsule,delayed 20 mg PO QDAY 06/18/22 07/31/22 History release rivaroxaban 20 mg tablet 20 mg PO QDAY 06/18/22 07/31/22 History sotalol 120 mg tablet 120 mg PO QDAY 06/18/22 07/31/22 History Allergies Allergy/AdvReac Type Severity Reaction Status Date / Time aspirin Allergy Mild Unknown Verified 06/18/22 09:18 iodine Allergy Mild Hives Verified 06/18/22 09:18 Penicillins Allergy Mild Unknown Verified 06/18/22 09:18 strawberry Allergy Mild Unknown Verified 06/18/22 09:18 Sulfa (Sulfonamide Allergy Mild Hives Verified 06/18/22 09:18 Antibiotics) Exam Narrative: Exam Narrative: GEN: Alert and oriented, answering questions appropriately, appears nontoxic HEENT: Normal external ears, EOMIs bilaterally, no scleral icterus CV: RRR with heart rate in the 50s during my exam, No concerning murmurs, rubs, or gallops R: LCTA bilaterally without concerning wheezing, rales, or rhonchi Ext: wwp, no concerning edema Skin: No concerning skin lesions or rashes on exposed skin Neuro: Nonfocal Psych: Appropriate Const: Vital Signs, click to edit/add: Vital Signs - 24 hr 07/31/22 16:18 07/31/22 16:50 07/31/22 16:30 Temperature 98.1 F Pulse Rate Pulse Rate [Right Pulse Oximeter] 55 L 55 L Respiratory Rate 22 Blood Pressure Blood Pressure [Ri ght Upper Arm] 140/74 H 147/69 H Pulse Oximetry 97 97 97 Oxygen Delivery Me thod Room Air Room Air 07/31/22 17:00 07/31/22 18:00 07/31/22 18:35 Temperature Pulse Rate Pulse Rate [Right Pulse Oximeter] 54 L 56 L 56 L Respiratory Rate Blood Pressure Blood Pressure [Ri ght Upper Arm] 157/112 H 196/85 H Pulse Oximetry 94 94 97 Oxygen Delivery Me thod Room Air Room Air Room Air 07/31/22 19:00 07/31/22 19:03 07/31/22 19:04 Temperature Pulse Rate 59 L 59 L 59 L Pulse Rate [Right Pulse Oximeter] Respiratory Rate Blood Pressure 150/100 H Blood Pressure [Ri ght Upper Arm] Pulse Oximetry 97 97 97 Oxygen Delivery Me thod 07/31/22 19:15 07/31/22 19:18 07/31/22 19:19 Temperature Pulse Rate 40 L 59 L 58 L Pulse Rate [Right Pulse Oximeter] Respiratory Rate Blood Pressure 193/100 H Blood Pressure [Ri ght Upper Arm] Pulse Oximetry 97 97 97 Oxygen Delivery Me thod 07/31/22 19:30 07/31/22 19:33 07/31/22 19:45 Temperature Pulse Rate 41 L 61 Pulse Rate [Right Pulse Oximeter] Respiratory Rate Blood Pressure 194/95 H Blood Pressure [Ri ght Upper Arm] Pulse Oximetry 95 96 94 Oxygen Delivery Me thod 07/31/22 19:50 07/31/22 19:51 07/31/22 20:00 Temperature Pulse Rate 58 L 59 L 51 L Pulse Rate [Right Pulse Oximeter] Respiratory Rate Blood Pressure 189/84 H Blood Pressure [Ri ght Upper Arm] Pulse Oximetry [address] [facility] 07/[facility]/22 20:03 07/31/22 20:15 07/31/22 20:17 Temperature Pulse Rate 57 L 57 L 56 L Pulse Rate [Right Pulse Oximeter] Respiratory Rate Blood Pressure 179/76 H 170/85 H Blood Pressure [Ri ght Upper Arm] Pulse Oximetry 95 [address] [facility] [facility] 07/31/22 20:18 07/31/22 20:30 07/31/22 20:33 Temperature Pulse Rate 54 L 56 L 56 L Pulse Rate [Right Pulse Oximeter] Respiratory Rate Blood Pressure 178/139 H Blood Pressure [Ri ght Upper Arm] Pulse Oximetry 96 [address] [facility] [facility] 07/31/22 20:57 Temperature Pulse Rate 55 L Pulse Rate [Right Pulse Oximeter] Respiratory Rate Blood Pressure Blood Pressure [Ri ght Upper Arm] Pulse Oximetry [address] [facility] - H&P: Result Labs Labs: Short CBC 07/31/22 Range/Units 17:07 WBC 6.40 (4.50-11.00) K/uL Hgb 12.7 L (13.5-17.5) gm/dL Hct 38.4 (37.0-53.0) % Plt Count 191 (140-440) K/uL BMP 07/31/22 17:07 Sodium 137 Potassium 3.7 Chloride 107 Carbon Dioxide 24 BUN 15 Creatinine 1.0 Glucose 138 H Calcium 8.6 Liver Function 07/31/22 Range/Units 17:07 Total Bilirubin 1.2 (0.1-1.5) mg/dL AST 24 (12-35) U/L ALT 19 (4-50) U/L Alkaline Phosphatase 103 (40-150) U/L Albumin 3.7 (3.3-5.0) g/dL Urine 07/31/22 Range/Units 18:20 Urine Color Yellow (Yellow) Urine Appearance Clear (Clear) Urine pH 6.5 (5.0-8.5) Ur Specific [place] 1.020 (1.000-1.030) Urine Protein Negative (Negative) Urine Glucose (UA) Negative (Negative) Assessment and Plan Assessment and plan (1) Bradycardia: Status: Acute Assessment and Plan: Intermittent, concerning. Cardiology recommends transfer for pacemaker placement, this is not possible given the current lack of bed status at tertiary cares facilities within our transfer radius. Will admit patient on Telemetry, temporary pacemaker/defibrillator in room. Continue to attempt transfer to tertiary care facility with Cardiology capabilities. (2) Atrial fibrillation: Problem comment: Hx Cardioversion X2 in 2017. 2nd successful with sustained benefit. Status: Acute (3) Major depressive disorder, recurrent episode, mild: Status: Acute Assessment and Plan: Continue home medications. (4) Essential hypertension: Status: Acute Assessment and Plan: Continue home medications. (5) Hypothyroidism: Status: Acute Assessment and Plan: TSH low, T4 normal. Continue home Synthroid dose. Plan - per above - hold Eliquis, will anticoagulate with Lovenox in anticipation of upcoming procedure
--- NOTE | 2022-07-31 21:21 | ED.NURSE ---
Report called to M/S KAYCEE
[2022-07-31] MEDS: SOTALOL HCL 120 MG TABLET PO (21:30)
[2022-08-01] MEDS: TAMSULOSIN HCL 0.4 MG CAPSULE 0.8 MG PO ×2 (00:32→09:30)
[2022-08-01] MEDS: FINASTERIDE 5 MG TABLET PO ×2 (00:33→09:29)
[2022-08-01] MEDS: AMLODIPINE 5 MG TABLET PO ×2 (00:33→09:30)
[2022-08-01 00:55] VITALS: PULSE 50
[2022-08-01 03:00] VITALS: BP 154/68; PULSE 56; RESP 18; TEMP 36.6; O2SAT 96
[2022-08-01] MEDS: LEVOTHYROXINE 100 MCG TABLET 200 MCG PO (05:59)
[2022-08-01] MEDS: OMEPRAZOLE 20 MG CAPSULE DR PO (05:59)
--- NOTE | 2022-08-01 06:09 | PC.NURSE ---
END OF SHIFT NOTE: PT PLEASANT AND COOPERATIVE. PT UP WITH ASSIST WITH CANE AT BEDSIDE USING URINAL TO VOID. TELE READS SINUS DHRUV WITH 1ST DEGREE HB AND BBB. HR OVERNIGHT 48-60. PT DENIES CP, SOB, N/V. VSS ON RA; AFEBRILE. NO PAIN REPORTED THIS SHIFT. PT AWAITING BED TO OPEN UP TO TRANSFER FOR PACEMAKER PLACEMENT.
[2022-08-01 06:38] LABS: Basophils Absolute Auto 0.01 K/uL (0.00-0.30); Basophils Percent Auto 0.2 % (0.0-3.0); Eosinophils Absolute Auto 0.28 K/uL (0.00-0.50); Eosinophils Percent Auto 4.3 % (0.0-7.0); Hematocrit 38.2 % (37.0-53.0); Hemoglobin* 12.5 gm/dL (13.5-17.5); Immature Granulocytes Abs Auto 0.03 K/uL (0.00-0.30); Lymphocytes Percent Auto 16.3 % (20-44); Mean Corpuscular HGB Conc 33 gm/dL (32-36); Mean Corpuscular Hemoglobin 30 pg (26-34); Mean Corpuscular Volume 92 fL (80-100); Monocytes Percent Auto 8.1 % (0.0-11.0); Neutrophils Absolute Auto 4.55 K/uL (1.7-7.0); Neutrophils Percent Auto 70.6 % (42.0-72.0); Platelet Count* 184 K/uL (140-440); RDW Coefficient of Variation % 13.4 % (11.5-15.5); Red Blood Count 4.15 m/uL (4.30-5.90); White Blood Count* 6.44 K/uL (4.50-11.00)
[2022-08-01 06:43] LABS: Slide Review Reflex No
[2022-08-01 07:00] VITALS: BP 119/99; PULSE 55; RESP 22; TEMP 36.4; O2SAT 96
[2022-08-01 07:01] LABS: Chloride* 104 mmol/L (96-114); Sodium* 137 mmol/L (135-149)
[2022-08-01 07:02] LABS: Potassium* 3.5 mmol/L (3.6-5.1)
[2022-08-01 07:04] LABS: Carbon Dioxide* 26 mmol/L (20-32); Creatinine* 0.8 mg/dL (0.5-1.5); Estimated Glomerular Filt Rate 88 ml/min
[2022-08-01 07:05] LABS: Blood Urea Nitrogen* 10 mg/dL (7-30); Calcium* 8.5 mg/dL (8.4-10.6); Glucose* 110 mg/dL (60-115)
[2022-08-01 07:12] LABS: Troponin I* 0.02 ng/mL (0.01-0.04)
[2022-08-01 07:52] VITALS: PULSE 52
--- NOTE | 2022-08-01 09:20 | P.DS_ITS ---
DS: Providers Provider Date Seen: 08/01/22 Date of admission: 07/31/22 21:14 Primary care physician: Oscar Arevalo MD Admitting Clinician: Tanya Archer MD Consults: ED physician discussed with Ladder Operator by phone on 07/31 Attending Physician on discharge: Tanya Archer MD Date of Discharge: 08/01/22 DS: Diagnosis Discharge Diagnosis (1) Bradycardia: Status: Acute (2) Atrial fibrillation: Status: Acute Problem details: Hx Cardioversion X2 in 2017. 2nd successful with sustained benefit. (3) Essential hypertension: Status: Acute DS: Summary Hospital Course Hospital Course: Abraham is an 82-year-old male who presented to the emergency room on 07/31 for dyspnea, present for months but worse in the last week. He was found to have cardiomegaly on chest x-ray, telemetry revealed intermittent episodes of bradycardia with heart rate into the 30s (corresponding to patient's dyspneic episodes). ER physician discussed the case with Cardiology, who recommended transfer to tertiary care facility for pacemaker placement. Unfortunately, state wide limits on bed status did not allow transfer, so patient was admitted overnight for monitoring and remained stable. This morning, I was able to discuss the case with Dr. Blount at [facility] in [place] who agrees to accept the patient in transfer. Per cardiology recommendations, we continued patient's Sotalol at 120 mg BID. We have held his rivaroxaban during stay ( last dose given 10/6 am) Status at Discharge Cognitive/behavioral status at discharge: Baseline Time Spent with Patient Time attestation: Total time spent providing and/or coordinating discharge services: Time spent: Greater than 30 minutes Specific discharge activities: Care coordination, transfer requests, updating patient and family. Exam Narrative: Exam Narrative: GEN: Alert and oriented, sitting comfortably in bed and answering questions appropriately HEENT: Normal external ears, EOMIs bilaterally, no scleral icterus CV: Sinus bradycardia (rate in the 50s), no concerning murmurs, rubs, or gallops R: LCTA bilaterally without concerning wheezing, rales, or rhonchi Ext: wwp, no concerning edema Skin: No concerning skin lesions or rashes on exposed skin Neuro: Nonfocal Psych: Appropriate Const: Vital Signs, click to edit/add: Vital Signs - 24 hr 07/31/22 16:18 07/31/22 16:50 07/31/22 16:30 Temperature 98.1 F Pulse Rate Pulse Rate [Pulse Oximeter] Pulse Rate [Right Pulse Oximeter] 55 L 55 L Respiratory Rate 22 Blood Pressure Blood Pressure [Ri ght Radial Artery] Blood Pressure [Ri ght Upper Arm] 140/74 H 147/69 H Pulse Oximetry 97 97 97 Oxygen Delivery Me thod Room Air Room Air 07/31/22 17:00 07/31/22 18:00 07/31/22 18:35 Temperature Pulse Rate Pulse Rate [Pulse Oximeter] Pulse Rate [Right Pulse Oximeter] 54 L 56 L 56 L Respiratory Rate Blood Pressure Blood Pressure [Ri ght Radial Artery] Blood Pressure [Ri ght Upper Arm] 157/112 H 196/85 H Pulse Oximetry 94 94 97 [facility] Room [facility] Room Air 07/31/22 19:00 07/31/22 19:03 07/31/22 19:04 Temperature Pulse Rate 59 L 59 L 59 L Pulse Rate [Pulse Oximeter] Pulse Rate [Right Pulse Oximeter] Respiratory Rate Blood Pressure 150/100 H Blood Pressure [Ri ght Radial Artery] Blood Pressure [Ri ght Upper Arm] Pulse Oximetry 97 97 97 Oxygen Delivery Tx thod 07/31/22 19:15 07/31/22 19:18 07/31/22 19:19 Temperature Pulse Rate 40 L 59 L 58 L Pulse Rate [Pulse Oximeter] Pulse Rate [Right Pulse Oximeter] Respiratory Rate Blood Pressure 193/100 H Blood Pressure [Ri ght Radial Artery] Blood Pressure [Ri ght Upper Arm] Pulse Oximetry 97 97 97 Oxygen Delivery Tx thod 07/31/22 19:30 07/31/22 19:33 07/31/22 19:45 Temperature Pulse Rate 41 L 61 Pulse Rate [Pulse Oximeter] Pulse Rate [Right Pulse Oximeter] Respiratory Rate Blood Pressure 194/95 H Blood Pressure [Ri ght Radial Artery] Blood Pressure [Ri ght Upper Arm] Pulse Oximetry 95 96 94 Oxygen Delivery Tx thod 07/31/22 19:50 07/31/22 19:51 07/31/22 20:00 Temperature Pulse Rate 58 L 59 L 51 L Pulse Rate [Pulse Oximeter] Pulse Rate [Right Pulse Oximeter] Respiratory Rate Blood Pressure 189/84 H Blood Pressure [Ri ght Radial Artery] Blood Pressure [Ri ght Upper Arm] Pulse Oximetry 96 97 97 Oxygen Delivery Me thod 07/31/22 20:03 07/31/22 20:15 07/31/22 20:17 Temperature Pulse Rate 57 L 57 L 56 L Pulse Rate [Pulse Oximeter] Pulse Rate [Right Pulse Oximeter] Respiratory Rate Blood Pressure 179/76 H 170/85 H Blood Pressure [Ri ght Radial Artery] Blood Pressure [Ri ght Upper Arm] Pulse Oximetry 95 97 97 Oxygen Delivery Me thod 07/31/22 20:18 07/31/22 20:30 07/31/22 20:33 Temperature Pulse Rate 54 L 56 L 56 L Pulse Rate [Pulse Oximeter] Pulse Rate [Right Pulse Oximeter] Respiratory Rate Blood Pressure 178/139 H Blood Pressure [Ri ght Radial Artery] Blood Pressure [Ri ght Upper Arm] Pulse Oximetry 96 97 97 Oxygen Delivery Me thod 07/31/22 20:57 07/31/22 21:00 07/31/22 21:15 Temperature Pulse Rate 55 L 57 L 56 L Pulse Rate [Pulse Oximeter] Pulse Rate [Right Pulse Oximeter] Respiratory Rate Blood Pressure Blood Pressure [Ri ght Radial Artery] Blood Pressure [Ri ght Upper Arm] Pulse Oximetry 95 98 95 Oxygen Delivery Me thod 07/31/22 22:06 07/31/22 22:07 07/31/22 22:06 Temperature Pulse Rate 54 L Pulse Rate [Pulse Oximeter] Pulse Rate [Right Pulse Oximeter] Respiratory Rate Blood Pressure Blood Pressure [Ri ght Radial Artery] Blood Pressure [Ri ght Upper Arm] Pulse Oximetry 97 97 Oxygen Delivery Me thod Room Air 07/31/22 22:19 07/31/22 22:19 07/31/22 22:33 Temperature 97.8 F 97.8 F Pulse Rate Pulse Rate [Pulse Oximeter] 54 L 54 L Pulse Rate [Right Pulse Oximeter] Respiratory Rate 30 H 24 Blood Pressure Blood Pressure [Ri ght Radial Artery] 164/62 H 164/62 H Blood Pressure [Ri ght Upper Arm] Pulse Oximetry 97 97 97 Oxygen Delivery Me thod Room Air Room Air Room Air 07/31/22 23:00 07/31/22 23:00 08/01/22 03:00 Temperature 97.5 F L 97.9 F Pulse Rate Pulse Rate [Pulse Oximeter] 60 60 56 L Pulse Rate [Right Pulse Oximeter] Respiratory Rate 16 16 18 Blood Pressure Blood Pressure [Ri t Radial Artery] 159/76 H 154/68 H Blood Pressure [Ri t Upper Arm] Pulse Oximetry 96 96 Oxygen Delivery Me thod Room Air Room Air 08/01/22 00:55 08/01/22 07:00 Temperature Pulse Rate 50 L Pulse Rate [Pulse Oximeter] 55 L Pulse Rate [Right Pulse Oximeter] Respiratory Rate Blood Pressure Blood Pressure [Ri ght Radial Artery] Blood Pressure [Ri t Upper Arm] Pulse Oximetry Oxygen Delivery Me thod DS: Data Data Completed and Pending Labs on day of discharge: Labs from last 24 hours 08/01/22 08/01/22 07/31/22 05:46 05:46 19:15 WBC 6.44 RBC 4.15 L Hgb 12.5 L Hct 38.2 MCV 92 MCH 30 MCHC 33 RDW Coeff of Florentin 13.4 Plt Count 184 Neut % (Auto) 70.6 Lymph % (Auto) 16.3 L [place] % (Auto) 8.1 Eos % (Auto) 4.3 Baso % (Auto) 0.2 Neut # (Auto) 4.55 Lymph # (Auto) 1.00 [place] # (Auto) 0.50 Eos # (Auto) 0.28 Baso # (Auto) 0.01 Abs Immat Gran (auto) 0.03 D-Dimer Quant (PE/DVT) VBG pH VBG pCO2 VBG pO2 VBG HCO3 Sodium 137 Potassium 3.5 L Chloride 104 Carbon Dioxide 26 BUN 10 Creatinine 0.8 Estimated Creat Clear 55.10 Estimated GFR 88 Glucose 110 Lactate Calcium 8.5 Magnesium Total Bilirubin AST ALT Alkaline Phosphatase Troponin I 0.02 C-Reactive Protein NT-Pro-B Natriuret Pep Total Protein Albumin TSH Free T4 Urine Color Urine Appearance Urine pH Ur Specific [place] Urine Protein Urine Glucose (UA) Urine Ketones Urine Blood Urine Nitrite Urine Bilirubin Urine Urobilinogen Ur Leukocyte Esterase Urine RBC Urine WBC Ur Squamous Epith Cells Urine Bacteria Ethyl Alcohol SARS-CoV-2 (PCR) POC Troponin I 0.01 07/31/22 07/31/22 07/31/22 18:20 17:07 17:07 WBC RBC Hgb Hct MCV MCH MCHC RDW Coeff of Florentin Plt Count Neut % (Auto) Lymph % (Auto) [place] % (Auto) Eos % (Auto) Baso % (Auto) Neut # (Auto) Lymph # (Auto) [place] # (Auto) Eos # (Auto) Baso # (Auto) Abs Immat Gran (auto) D-Dimer Quant (PE/DVT) VBG pH VBG pCO2 VBG pO2 VBG HCO3 Sodium 137 Potassium 3.7 Chloride 107 Carbon Dioxide 24 BUN 15 Creatinine 1.0 Estimated Creat Clear 55.10 Estimated GFR 75 Glucose 138 H Lactate Calcium 8.6 Magnesium 1.8 Total Bilirubin 1.2 AST 24 ALT 19 Alkaline Phosphatase 103 Troponin I C-Reactive Protein 0.6 NT-Pro-B Natriuret Pep 697 H Total Protein 6.6 Albumin 3.7 TSH 0.190 L Free T4 1.57 Urine Color Yellow Urine Appearance Clear Urine pH 6.5 Ur Specific [place] 1.020 Urine Protein Negative Urine Glucose (UA) Negative Urine Ketones Trace A Urine Blood Trace-lysed A Urine Nitrite Negative Urine Bilirubin Negative Urine Urobilinogen 0.2 Ur Leukocyte Esterase Trace A Urine RBC 0-2 Urine WBC 0-2 Ur Squamous Epith Cells None Urine Bacteria None Ethyl Alcohol < 0.01 L SARS-CoV-2 (PCR) POC Troponin I 07/31/22 07/31/22 07/31/22 17:07 17:07 17:00 WBC 6.40 RBC 4.17 L Hgb 12.7 L Hct 38.4 MCV 92 MCH 31 MCHC 33 RDW Coeff of Florentin 13.4 Plt Count 191 Neut % (Auto) 72.1 H Lymph % (Auto) 16.7 L [place] % (Auto) 7.8 Eos % (Auto) 3.0 Baso % (Auto) 0.2 Neut # (Auto) 4.60 Lymph # (Auto) 1.10 [place] # (Auto) 0.50 Eos # (Auto) 0.19 Baso # (Auto) 0.01 Abs Immat Gran (auto) 0.01 D-Dimer Quant (PE/DVT) 0.51 H VBG pH VBG pCO2 VBG pO2 VBG HCO3 Sodium Potassium Chloride Carbon Dioxide BUN Creatinine Estimated Creat Clear Estimated GFR Glucose Lactate Calcium Magnesium Total Bilirubin AST ALT Alkaline Phosphatase Troponin I C-Reactive Protein NT-Pro-B Natriuret Pep Total Protein Albumin TSH Free T4 Urine Color Urine Appearance Urine pH Ur Specific [place] Urine Protein Urine Glucose (UA) Urine Ketones Urine Blood Urine Nitrite Urine Bilirubin Urine Urobilinogen Ur Leukocyte Esterase Urine RBC Urine WBC Ur Squamous Epith Cells Urine Bacteria Ethyl Alcohol SARS-CoV-2 (PCR) Negative SARS-CoV-2 POC Troponin I 07/31/22 07/31/22 16:51 04:21 WBC RBC Hgb Hct MCV MCH MCHC RDW Coeff of Florentin Plt Count Neut % (Auto) Lymph % (Auto) [place] % (Auto) Eos % (Auto) Baso % (Auto) Neut # (Auto) Lymph # (Auto) [place] # (Auto) Eos # (Auto) Baso # (Auto) Abs Immat Gran (auto) D-Dimer Quant (PE/DVT) VBG pH 7.436 H VBG pCO2 40 VBG pO2 40.0 VBG HCO3 27 Sodium Potassium Chloride Carbon Dioxide BUN Creatinine Estimated Creat Clear Estimated GFR Glucose Lactate 1.1 Calcium Magnesium Total Bilirubin AST ALT Alkaline Phosphatase Troponin I C-Reactive Protein NT-Pro-B Natriuret Pep Total Protein Albumin TSH Free T4 Urine Color Urine Appearance Urine pH Ur Specific [place] Urine Protein Urine Glucose (UA) Urine Ketones Urine Blood Urine Nitrite Urine Bilirubin Urine Urobilinogen Ur Leukocyte Esterase Urine RBC Urine WBC Ur Squamous Epith Cells Urine Bacteria Ethyl Alcohol SARS-CoV-2 (PCR) POC Troponin I 0.01 Discharge Plan Discharge Disposition: Xfer Other Date of Admission: 07/31/22 21:14 Attending Provider on Discharge: Tanya Archer Primary Care Provider: Oscar Arevalo Condition: Unchanged Anticipated Discharge Date/Time: 08/01/22 09:26 Discharge Medications: Continued fluoxetine 40 mg capsule 40 mg PO DAILY tamsulosin 0.4 mg capsule 0.8 mg PO DAILY cetirizine [24Hour Allergy] 10 mg tablet 10 mg PO DAILY epinephrine 0.3 mg/0.3 mL auto-injector 0.3 mg IM Q4H PRN levothyroxine 200 mcg tablet 200 mcg PO DAILY finasteride 5 mg tablet 5 mg PO DAILY amlodipine 5 mg tablet 5 mg PO DAILY fluticasone propionate 50 mcg/actuation spray,suspension 2 spray intranasal DAILY Rx Instructions: administer into each nostril omeprazole 20 mg capsule,delayed release(DR/EC) 20 mg PO DAILY atorvastatin 40 mg tablet 40 mg PO HS sotalol 120 mg tablet 120 mg PO BID Rx Instructions: With meal Held rivaroxaban 20 mg tablet 20 mg PO DAILY Hold Instructions: Resume on 08/03/22. hold until directed to restart by doctors in [place] Rx Instructions: must administer with meal Discharge Orders: Discharge Order (Routine); Ordered 08/01/22 Ordered By: Tanya Archer Discharge Diet: Other Diet Detail: NPO on discharge until plan made in [place] Follow Up Appointments: Oscar Arevalo MD [Primary Care Provider] - Forms: [facility] Info Instructions Hospital Course: Abraham is an 82-year-old male who presented to the emergency room on 07/31 for dyspnea, present for months but worse in the last week. He was found to have cardiomegaly on chest x-ray, telemetry revealed intermittent episodes of bradycardia with heart rate into the 30s (corresponding to patient's dyspneic episodes). ER physician discussed the case with Cardiology, who recommended transfer to tertiary care facility for pacemaker placement. Unfortunately, state wide limits on bed status did not allow transfer, so patient was admitted overnight for monitoring and remained stable. This morning, I was able to discuss the case with Dr. Blount at [facility] in [place] who agrees to accept the patient in transfer. Per cardiology recommendations, we continued patient's Sotalol at 120 mg BID. We have held his rivaroxaban during stay ( last dose given 07/31 am) Discharge Comments: Transfer to [facility]
[2022-08-01] MEDS: FLUOXETINE HCL 20 MG CAPSULE 40 MG PO (09:29)
[2022-08-01] MEDS: SOTALOL HCL 120 MG TABLET PO (09:31)
[2022-08-01] MEDS: FLUTICASONE PROPIONATE NASAL 2 SPRAY NOSTRIL-B (10:37)
[2022-08-01 11:00] VITALS: BP 140/75; PULSE 55; RESP 22; TEMP 36.6; O2SAT 95
--- NOTE | 2022-08-01 11:24 | PC.NURSE ---
shift note: pt up to bathroom with sba. pt having sob with minimal activity and was placed on 2Lpnc O2 to recover. IV x2 patent bilat ac. pt denies c.p or pressure. pt states upon standing he gets dizzy. vss stable. pt afeb. HR irreg with 1 degree AVB and BBB; rate 50-55. Nurse to nurse given via phone to [facility] nursing. pt transferred @ 1100 via ambulance
== END 2022-08-01 11:00 | disposition short-term general hospital (02) | DRG 309 ==
LOC: ED 20:29 → MEDSURG 21:10
PROVIDERS: Admitting Provider Family Medicine; Emergency Provider Family Medicine; PCP Family Medicine; Visit Provider Family Medicine
DX: R00.1 Bradycardia, unspecified (principal); F33.8 Other recurrent depressive disorders; I48.0 Paroxysmal atrial fibrillation; I11.9 Hypertensive heart disease without heart failure; Z79.01 Long term (current) use of anticoagulants; M54.50 Low back pain, unspecified; G89.29 Other chronic pain; W01.0XXA Fall on same level from slipping, tripping and stumbling without subsequent striking against object, initial encounter; F10.10 Alcohol abuse, uncomplicated; R32 Unspecified urinary incontinence; I45.10 Unspecified right bundle-branch block; E03.9 Hypothyroidism, unspecified; Z85.46 Personal history of malignant neoplasm of prostate
CPT/HCPCS: 36415; 70450; 71045; 80048; 80053; 81001; 82077; 82803; 83605; 83735; 83880; 84439; 84443; 84484; 85025; 85379; 86140; 87635; 93005; 94761; 99284; A9270

== ENCOUNTER 2022-08-01 10:50 | Outpatient (CLI) | payer MEDICARE, BC, SELFPAY ==
--- OUTSIDE RECORDS SUMMARY | 2022-09-25 02:49 | XMS_ITS | Encounter Summary ---
:1940 Author Organization [place] Address [address] [place] [address] Care Team Providers Name Role Phone Maikel Brock Primary Care Provider Reason for Visit Reason Comments Hematuria Encounter Details Date Type Department Care Team Description 09/19/2017 Emergency [facility] Danica Gloria MD [facility] Emergency Dept EMERGENCY PHYSICIANS OA [address] [facility] [address] [place], [place] [phone] Social History Tobacco Use Types Packs/Day Years [...] Comments Blood Pressure 148/81 09/19/2017 12:54 PM SQUEEGEE TENDER Pulse - - Temperature 36.6 ??C (97.9 ??F) 09/19/2017 9:41 AM SQUEEGEE TENDER Respiratory Rate 20 09/19/2017 12:54 PM SQUEEGEE TENDER Oxygen Saturation 94% 09/19/2017 12:54 Simultaneous filing. PM SQUEEGEE TENDER User may not hav e seen previous data. Inhaled Oxygen - - Concentration Weight 101.6 kg (224 lb) 09/19/2017 9:41 AM SQUEEGEE TENDER Height 172.7 cm (5' 8) 09/19/2017 9:41 AM SQUEEGEE TENDER Body Mass Index 34.06 09/19/2017 9:41 AM SQUEEGEE TENDER documented in this encounter Discharge Instructions Discharge [...] easy bruising Date Last Reviewed: 06/26/2016 ?? [id number] [employer]. [address] [place] [address], [place] [address]. All rights reserved. This information is not intended as a substitute for professional medical care. Always follow your healthcare professional's instructions. EGEE TENDER documented in this encounter Medications at Time [...] Patient to US via cart with transport. EGEE TENDER Bonnie Hicks RN - 09/19/2017 9:46 AM CST A&Ox4. ABC's intact. Pt c/o blood and clots in urine that started last week. [facility], Thursday. Has a follow appt on at [place], but bleeding has returned. Denies pain. EGEE TENDER Dionte Gloria MD - 09/19/2017 9:29 AM [...] to [facility] in [place] where they placed a Nava catheter and performed a urinalysis, which was negative. The patient went back on Thursday to have the catheter removed since it was irritating him. The patient was instructed to follow-up with urology, and made an appointment at [place] for this 09/24/17. 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 He was unable to receive a prompt appointment with urology in [place] so presents here today. The patient has continued to have symptoms intermittentlyand, although he has a follow-up appointment with [place] scheduled for , came in for further [...] Disposition: Discharged to home Berta Santillan 09/19/2017 [facility] EMERGENCY DEPARTMENT IBerta, am serving as a scribe at 10:52 AM on 09/19/2017 to document services personally performed by Dionte Gloria MD based on my observations and the provider's statements to me. Dionte Gloria MD 09/19/17 1646 EGEE TENDER documented in this encounter Plan of Treatment Not on filedocumented as of this encounter Procedures Procedure Name Priority Date/Time Associated Comments Diagnosis US RENAL COMPLETE STAT 09/19/2017 12:16 Result s for this NON-VASCULAR PM SQUEEGEE TENDER procedure are i n the results section. CBC WITH PLATELETS & STAT 09/19/2017 11:15 Res ults for this DIFFERENTIAL AM SQUEEGEE TENDER procedure are i n the results section. BASIC METABOLIC PANEL STAT 09/19/2017 11:15 Re sults for this AM SQUEEGEE TENDER procedure are i n the results section. ROUTINE UA WITH STAT 09/19/2017 10:40 Results for this MICROSCOPIC AM SQUEEGEE TENDER procedure are i n the results section. documented in this encounter Results US Renal Complete (09/19/2017 12:16 PM SQUEEGEE TENDER) Anatomical Region Laterality Modality Abdomen/Pelvis Ultrasound Specimen (Source) Anatomical Location Collection Method / Collectio n Time Received Time / Laterality Volume Impressions 09/19/2017 12:48 PM SQUEEGEE TENDER IMPRESSION: Negative. SCOOTER ZARCO MD Narrative 09/19/2017 12:48 PM SQUEEGEE TENDER ULTRASOUND RENAL COMPLETE ??09/19/2017 12:16 PM HISTORY: [...] (ABNORMAL) Basic metabolic panel (09/19/2017 11:15 AM SQUEEGEE TENDER) P athologist Signature Sodium 137 133 - 144 09/19/2017 [facility] mmol/L 11:50 AM [facility] Potassium 4.0 3.4 - 5.3 09/19/2017 [facility] mmol/L 11:50 AM [facility] Chloride 106 94 - 109 09/19/2017 [facility] mmol/L 11:50 AM [facility] Carbon Dioxide 25 20 - 32 09/19/2017 [facility] mmol/L 11:50 AM [facility] Anion Gap 6 3 - 14 09/19/2017 [facility] mmol/L 11:50 AM [facility] Glucose 107 (H) 70 - 99 09/19/2017 [facility] mg/dL 11:50 AM [facility] Urea Nitrogen 17 7 - 30 09/19/2017 [facility] mg/dL 11:50 AM [facility] Creatinine 0.98 0.66 - 09/19/2017 [facility] 1.25 mg/dL 11:50 AM [facility] GFR Estimate 74 >60 09/19/2017 [facility] mL/min/1.7 11:[address] Comment: Non GFR Calc GFR Estimate If 89 >60 mL/min/1.7m2 09/19/2017 11:50 AM [facility] Comment: GFR Calc Calcium 8.5 8.5 - 10.1 mg/dL 09/19/2017 11:50 AM [facility] Specimen Anatomical Collection Method Collection Time Receive d Time (Source) Location / / Volume Laterality Blood specimen 09/19/2017 11:15 7 (specimen) AM SQUEEGEE TENDER 11:29 AM SQUEEGEE TENDER Dionte Gloria MD LAB - BLOOD ORDERABLES Performing Organization Address City/State/ZIP Code [facility] e Number [place] [address] [place] [address] [phone] CBC with platelets differential (09/19/2017 11:15 AM SQUEEGEE TENDER) [facility] Method Time Signature WBC 6.9 4.0 - 09/19/2017 [facility] 11.0 11:33 AM [facility] 10e9/L [facility] RBC Count 4.71 4.4 - 5.9 09/19/2017 [facility] 10e12/L 11:33 AM [facility] Hemoglobin 14.3 13.3 - 09/19/2017 [facility] 17.7 g/dL 11:33 AM [facility] Hematocrit 42.5 40.0 - 09/19/2017 [facility] 53.0 % 11:33 AM [facility] MCV 90 78 - 100 09/19/2017 [facility] fl 11:33 AM [facility] MCH 30.4 26.5 - 09/19/2017 [facility] 33.0 pg 11:33 AM [facility] MCHC 33.6 31.5 - 09/19/2017 [facility] 36.5 g/dL 11:33 AM [facility] RDW 13.4 10.0 - 09/19/2017 [facility] 15.0 % 11:33 AM [facility] Platelet Count 195 150 - 450 09/19/2017 [facility] 10e9/L 11:33 AM [facility] Diff Method Automated 09/19/2017 [facility] Method 11:33 AM [facility] % Neutrophils 74.7 % 09/19/2017 [facility] 11:33 AM [facility] % Lymphocytes 14.5 % 09/19/2017 [facility] 11:33 AM [facility] % Monocytes 7.2 % 09/19/2017 [facility] 11:33 AM [facility] % Eosinophils 2.9 % 09/19/2017 [facility] 11:33 AM [facility] % Basophils 0.3 % 09/19/2017 [facility] 11:33 AM [facility] % Immature 0.4 % 09/19/2017 [facility] Granulocytes 11:33 AM [facility] Nucleated RBCs 0 0 /100 09/19/2017 [facility] 11:33 AM [facility] Absolute 5.2 1.6 - 8.3 09/19/2017 [facility] Neutrophil 10e9/L 11:33 AM [facility] Absolute 1.0 0.8 - 5.3 09/19/2017 [facility] Lymphocytes 10e9/L 11:33 AM [facility] Absolute 0.5 0.0 - 1.3 09/19/2017 [facility] Monocytes 10e9/L 11:33 AM [facility] Absolute 0.2 0.0 - 0.7 09/19/2017 [facility] Eosinophils 10e9/L 11:33 AM [facility] Absolute 0.0 0.0 - 0.2 09/19/2017 [facility] Basophils 10e9/L 11:33 AM [facility] Abs Immature 0.0 0 - 0.4 09/19/2017 [facility] Granulocytes 10e9/L 11:33 AM [facility] Absolute 0.0 09/19/2017 [facility] Nucleated RBC 11:33 AM [facility] Specimen Anatomical Collection Method Collection Time Receive d Time (Source) Location / / Volume Laterality Blood specimen 09/19/2017 11:15 7 (specimen) AM SQUEEGEE TENDER 11:29 AM SQUEEGEE TENDER Dionte Golria MD LAB - BLOOD ORDERABLES Performing Organization Address City/State/ZIP Code Phon e Number [place] [address] [place], [place] [address] [facility] [place] [place] [address] [address] [place], [place] [address], [facility] [phone] (ABNORMAL) UA with Microscopic (09/19/2017 10:40 AM SQUEEGEE TENDER) [facility] Method Time Signature Color Urine Yellow 09/19/2017 [facility] 11:06 AM [facility] Appearance Urine Slightly 09/19/2017 [facility] Cloudy 11:06 AM [facility] Glucose Urine Negative NEG^Negat 09/19/2017 [facility] emily mg/dL 11:06 AM [facility] Bilirubin Urine Negative NEG^Negat 09/19/2017 [facility] emily 11:06 AM [facility] Ketones Urine Negative NEG^Negat 09/19/2017 [facility] emily mg/dL 11:06 AM [facility] Specific Reva 1.012 1.003 - 09/19/2017 [facility] Urine 1.035 11:06 AM [facility] Blood Urine Large (A) NEG^Negat 09/19/2017 [facility] emily 11:06 AM [facility] pH Urine 6.0 5.0 - 7.0 09/19/2017 [facility] pH 11:06 AM [facility] Protein Albumin Negative NEG^Negat 09/19/2017 [facility] Urine emily mg/dL 11:06 AM [facility] Urobilinogen 0.0 0.0 - 2.0 09/19/2017 [facility] mg/dL mg/dL 11:06 AM [facility] Nitrite Urine Negative NEG^Negat 09/19/2017 [facility] emily 11:06 AM [facility] Leukocyte Negative NEG^Negat 09/19/2017 [facility] Esterase Urine emily 11:06 AM [facility] Source Midstream 09/19/2017 [facility] Urine 10:54 AM [facility] WBC Urine 4 (H) 0 - 2 09/19/2017 [facility] /HPF 11:06 AM [facility] RBC Urine 103 (H) 0 - 2 09/19/2017 [facility] /HPF 11:06 AM [facility] Mucous Urine Present (A) NEG^Negat 09/19/2017 [facility] emily /LPF 11:06 AM [facility] Hyaline Casts 1 0 - 2 09/19/2017 [facility] /LPF 11:06 AM [facility] Specimen (Source) Anatomical Collection Method Collection Time Re ceived Time Location / / Volume Laterality Examination of URINE SPECIMEN 09/19/2017 10:40 017 midstream urine OBTAINED BY CLEAN AM SQUEEGEE TENDER 10:53 A [facility] specimen CATCH PROCEDURE / (procedure) Unknown Paul Edwards MD LAB - URINE ORDERABLES Performing Organization Address City/State/ZIP Code Phon e Number [facility] [address] [place], [place] [address] [facility] [address] [place], [place] [address] [place] [address] documented in this encounter Visit Diagnoses Diagnosis Gross hematuria documented in this encounter Care Teams Algorithm Design Engineer Relationship Specialty Start Date End Date Maikel Brock PCP - General Family Practice 09/19/17 [facility] [address] [place] [address] documented as of this encounter
--- OUTSIDE RECORDS SUMMARY | 2022-09-25 02:49 | XMS_ITS | Encounter Summary ---
:1940 Author Organization [place] Address [address] [place] [address] Care Team Providers Name Role Phone Carlos Alberto Corral MD Primary Care Provider Reason for Visit (Routine) - Closed Specialty Diagnoses / Procedures Referred By Contact Refer red To Contact Cardiology Diagnoses ECHOCARDIOGRAPHY COMPLETE W/O CONTRAST* Zz Sh Cardiolo gy Img Procedures RADIOLOGY [address] [place] [address] Phone: Referral ID Status Reason Start Date Expiration Date Visits Requ ested Visits Authorized [id number] Closed 03/03/2014 03/03/2015 1 1 Encounter Details Date Type Department Care Team Description 03/06/2014 Hospital Encounter [facility] Suzi Corral MD Radiology - [facility] Heart [facility] [place] [address] [place] [address] [place] [address] [phone] Social History Tobacco Use Types Packs/Day Years [...] COMPLETE WITH OPTISON (03/06/2014 1:05 PM CDT) [facility] Method Time Signature [facility] Interpretation [...] on filedocumented in this encounter Care Teams Diagnostic Imaging Manager Relationship Specialty Start Date End Date Carlos Alberto Corral MD PCP - General Internal Medicine 10/15/12 09/18/[address] [address] documented as of this encounter
--- OUTSIDE RECORDS SUMMARY | 2022-09-25 02:49 | XMS_ITS | Clinical Summary ---
:1940 Author Organization [place] Address [address] [place] [address] Care Team Providers Name Role Phone Maikel [...] Take by mouth 0 Active capsule daily Social History Tobacco Use Types Packs/Day Years Used Date Smoking Tobacco: Former Cigarettes Quit : 11/02/1995 Smokeless Tobacco: Never Alcohol Use Standard Drinks/Week Comments Yes 28 (1 standard drink = 0.6 oz pure alcoh ol) Sex Assigned at Date Recorded Not on file Last Filed Vital Signs Vital Sign Reading Time Taken Comments Blood Pressure 148/81 09/19/2017 12:54 PM HOME CARE MANAGER RN Pulse 62 10/23/2017 3:21 PM HOME CARE MANAGER RN Temperature 36.6 ??C (97.9 ??F) 09/19/2017 9:41 AM HOME CARE MANAGER RN Respiratory Rate 20 09/19/2017 12:54 PM HOME CARE MANAGER RN Oxygen Saturation 93% 10/23/2017 3:21 PM HOME CARE MANAGER RN Inhaled Oxygen Concentration - - Weight 101.6 kg (224 lb) 10/23/2017 3:21 PM HOME CARE MANAGER RN Height 172.7 cm (5' 8) 10/23/2017 3:21 PM HOME CARE MANAGER RN Body Mass Index 34.06 10/23/2017 3:21 PM HOME CARE MANAGER RN Plan of Treatment Health Maintenance Due Date [...] ype Group Dates MEDICARE MEDICARE FOR HB [id number] 2013-Prese [phone] ATTN CLAIMS Medicare SUPPLEMENT nt 40 [address] [facility] [place] [address] BCBS BCBS KNIK [id number] 2016-Prese [phone] [address] [address] PPO BLUE nt 00 [place] [address] Advance Directives For more information, please contact: [phone] Documents on File Type Date Recorded Patient Field Recorder Explanati on Advance Directives and 11/07/2012 8:20 AM VALIDAT ION OF Living Will AD-10/09/1999 Advance Directives and 11/07/2012 8:20 AM HEALTH CARE Living Will DIRECTIVE-1998 Care Teams Chick Grader Relationship Specialty Start Date End Date Maikel Brock PCP - General Family Practice 09/19/[address] [address]
--- OUTSIDE RECORDS SUMMARY | 2022-09-25 02:49 | XMS_ITS | Encounter Summary ---
:1940 Author Organization [place] Address [facility] [place] [address] Care Team Providers Name Role Phone Maikel Brock Primary Care Provider Reason for Visit (Routine) - Closed Specialty Diagnoses / Procedures Referred By Contact Refer red To Contact Radiology / Radiology. Diagnoses EPIC order, sb Marcy [id number] Ct Scan [facility] [place] [address] [address] [place] [address] Phone: Fax: Referral ID Status Reason Start Date Expiration Date Visits Requ ested Visits Authorized [id number] Closed 09/29/2017 09/29/2018 1 1 Encounter Details Date Type Department Care Team Description 10/21/2017 Hospital Encounter [facility] Racquel Diaz, Gross hematuria [facility] PA-C [address] [facility] [address] [place] [address] [place], [place] [address] Social History Tobacco Use Types Packs/Day [...] hematuria R esults for this W/O CONTRAST SAW GRINDER procedure are i n the results section. documented in this encounter Results CT Abdomen Pelvis w/o Contrast (10/21/2017 3:47 PM SAW GRINDER) Anatomical Region Laterality Modality Abdomen/Pelvis, SUBRAD CT BODY, UMP CT ABDOMEN PELVIS, Computed Tomography RAD CT Specimen (Source) Anatomical Location Collection Method / Collectio n Time Received Time / Laterality Volume Impressions 10/22/2017 7:56 AM SAW GRINDER IMPRESSION: No urinary tract calculi or hydronephrosis. Prostate gland is not enlarged but a few prostatic calc ifications are present. Follow-up as clinically warranted. MEGA WILSON MD Narrative 10/22/2017 7:[address] ABDOMEN AND PELVIS WITHOUT CONTRAST 10/21/2017 [...] hematuria documented in this encounter Care Teams Elementary Reading Specialist Relationship Specialty Start Date End Date Maikel Brock PCP - General Family Practice 09/19/[address] [address] documented as of this encounter
--- OUTSIDE RECORDS SUMMARY | 2022-09-25 02:49 | XMS_ITS | Encounter Summary ---
:1940 Author Organization [place] Address [address] [place] [address] Care Team Providers Name Role Phone Maikel [...] on filedocumented in this encounter Care Teams Partition Assembler Relationship Specialty Start Date End Date Maikel Brock PCP - General Family Practice 09/19/[address] [place] [address] documented as of this encounter
--- OUTSIDE RECORDS SUMMARY | 2022-09-25 02:49 | XMS_ITS | Encounter Summary ---
:1940 Author Organization [place] Address [address] [place] [address] Care Team Providers Name Role Phone Carlos Alberto Corral MD Primary Care Provider Reason for Visit Reason Onset Date Comments Heart Problem 04/11/2014 Encounter Details Date Type Department Care Team Description 04/11/[address] [facility] Sleep Omar Berkowitz, Heart Problem Centers Aniya LLOYD [address] [facility] [address] [facility] [address] [place] [phone] [place] [phone] (Wo rk) Social History Tobacco Use Types [...] on filedocumented in this encounter Care Teams Project Executive Relationship Specialty Start Date End Date Carlos Alberto Corral MD PCP - General Internal Medicine 10/15/12 09/18/[address] [address] documented as of this encounter
--- OUTSIDE RECORDS SUMMARY | 2022-09-25 02:49 | XMS_ITS | Encounter Summary ---
:1940 Author Organization [place] Address [facility] [place] [address] Care Team Providers Name Role Phone Carlos Alberto Corral MD Primary Care Provider Encounter Details Date Type Department Care Team Description 11/02/2012 Anesthesia Event M [facility] Mya Dela Cruz MD [facility] [address] [place] [address] [place] [address] [...] 16 SpO2: 97% 97% 97% Additional Comments: LBOARD ASSEMBLER Anesthesia Preprocedure Evaluation - Henry Dela Cruz [...] benefits and alternatives discussed with: patient or hardware supplies sales representative. Pre-operative diagnosis: @ORPREDX@ @ORPROCALL@ @ALLERGY@ [...] no interval change.incomp. RBBB; prostate cancer . LBOARD ASSEMBLER documented in this encounter Miscellaneous Notes Anesthesia Care Transfer Note - Jasmin Chang APRN CRNA - 11/02/2012 10:39 AM CST Anesthesia Care Transfer Note Patient: Abraham Mancuso Transferred to: PACU Patient vital signs: stable Airway: none 1036: to par awake, on room air, dentition unchanged from pre-op. LBOARD ASSEMBLER documented in this encounter Plan of Treatment Not on filedocumented as of this encounter Visit Diagnoses Not on filedocumented in this encounter Care Teams Clerical Car Checker Relationship Specialty Start Date End Date Carlos Alberto Corral MD PCP - General Internal Medicine 10/15/12 09/18/[address] [address] documented as of this encounter
--- OUTSIDE RECORDS SUMMARY | 2022-09-25 02:49 | XMS_ITS | Encounter Summary ---
:1940 Author Organization [facility] Address [address] [place] [address] Care Team Providers Name Role Phone Carlos Alberto Corral MD Primary Care Provider Reason for Visit Reason Comments Heart Problem Encounter Details Date Type Department Care Team Description 03/08/2014 Care Coordination [facility] Sleep Terrell Faust [facility] Aniya Rg MD [address] [facility] [address] [place] [address] [place] [address] [place] [id number] [phone] Social History Tobacco Use Types Packs/Day Years [...] dysrhythmias documented in this encounter Care Teams Water Aerobics Instructor Relationship Specialty Start Date End Date Carlos Alberto Corral MD PCP - General Internal Medicine 10/15/12 09/18/[address] [address] documented as of this encounter
--- OUTSIDE RECORDS SUMMARY | 2022-09-25 02:49 | XMS_ITS | Encounter Summary ---
:1940 Author Organization [place] Address [address] [place] [address] Care Team Providers Name Role Phone Carlos Alberto Corral MD Primary Care Provider Reason for Visit Auth/Cert - Closed Specialty Diagnoses / Procedures Referred By Contact Refer red To Contact Surgery Diagnoses PTOSIS AND MECHANICAL PTOSIS OF BILATERAL UPPER LIDS S h Periop Services Procedures REPAIR PTOSIS BILATERAL [address] [place] [address] Phone: Referral ID Status Reason Start Date Expiration Date Visits Requ ested Visits Authorized [id number] Closed 1 1 Encounter Details Date Type Department Care Team Description 11/02/2012 Surgery [facility] Devyn Ocampo B ILATERAL UPPER LID [place] [facility] PTOSIS AND MECHANICAL [place] OPHTHALMIC PLAST PTOSIS REPAIR [address] [place] [address] [address] [place] [address] (Wo rk) [...] Comments Blood Pressure 162/86 11/02/2012 11:15 AM PRACTICE MANAGER Pulse - - Temperature 36.7 ??C (98.1 ??F) 11/02/2012 8:43 AM PRACTICE MANAGER Respiratory Rate 16 11/02/2012 11:15 AM PRACTICE MANAGER Oxygen Saturation 97% 11/02/2012 11:15 AM PRACTICE MANAGER Inhaled Oxygen Concentration - - Weight 89.8 kg (198 lb) 11/02/2012 8:43 AM PRACTICE MANAGER Height 172.7 cm (5' 8) 11/02/2012 8:43 AM PRACTICE MANAGER Body Mass Index 30.11 11/02/2012 8:43 AM PRACTICE MANAGER documented in this encounter Discharge Instructions Discharge [...] not make important decisions for 24 hours. [facility] Eyelid/Orbital Surgery Discharge Instructions Devyn Ocampo [...] that will not stop with gentle pressure. TICE MANAGER documented in this encounter Medications at Time [...] Ocampo MD - 10/29/2012 10:49 AM CST TICE MANAGER documented in this encounter OR Notes OR Anesthesia - Devyn Ocampo MD - 11/05/2012 1:14 PM CST TICE MANAGER documented in this encounter Miscellaneous Notes Provider Notification - Susi Díaz RN - 11/02/2012 11:19 AM CST Drainage minimal at this time. TICE MANAGER Provider Notification - Susi Díaz RN - 11/02/2012 11:[address] Ocampo notified of moderate drainage from right inner canthus, eye pad applied with pressure perDr. Ocampo. TICE MANAGER Provider Notification - Ally Diaz RN - 11/02/2012 10:58 AM CST Moist ice dressing TICE MANAGER Provider Notification - Ally Diaz RN - 11/02/2012 10:57 AM CST MOderate bloody drainage from right inner canthus, moist ice pack refreshed TICE MANAGER Op Note - Devyn Ocampo MD - [...] left the operating room in stable condition. TICE MANAGER documented in this encounter Plan of Treatment Not on filedocumented as of this encounter Procedures Procedure Name Priority Date/Time Associated Diagnosis Comme nts REPAIR, PTOSIS, 11/02/2012 9:26 AM PRACTICE MANAGER PTOSIS AND MECH ANICAL BILATERAL PTOSIS OF BILATERAL UPPER LIDS documented in this encounter Visit Diagnoses Not on filedocumented in this encounter Administered Medications Inactive Administered Medications - up to 3 most recent administrations Medication Order MAR Action Action Date Dose Rate Site erythromycin (ROMYCIN) Given 11/02/2012 9:57 AM 1 g Operative ophthalmic ointment PRACTICE MANAGER Site/Surgical S ite PRN, Starting on Thu11/02/12 at 0957, Apply within 1 hour of . May be delayed until after first ., Intra-procedure HYDROcodone-acetaminophen 5-325 MG per Given 11/02/2012 11:16 AM PRACTICE MANAGER 1 tablet tablet 1 tablet 1 tablet, Oral, EVERY 6 HOURS PRN, moderate to severe pain, Starting on Thu11/02/12 at 1115, PACU lidocaine 2%-EPINEPHrine Given 11/02/2012 10:20 AM 5 mLs Operative Site/Surgical 1:200,000 injection PRACTICE MANAGER Site PRN, Starting on Thu11/02/12 at 0957, Intra-procedure Given 11/02/2012 9:57 AM PRACTICE MANAGER 6 mLs Opera tive Site/Surgical Site documented in this encounter Active and Recently Administered Medications Times are shown in PRACTICE MANAGER. PRN Medication Order 10/31/2012 11/01/2012 11/02/2012 erythromycin [...] Intra-procedure documented in this encounter Care Teams Garden Labourer Relationship Specialty Start Date End Date Carlos Alberto Corral MD PCP - General Internal Medicine 10/15/12 09/18/[address] [address] documented as of this encounter
--- OUTSIDE RECORDS SUMMARY | 2022-09-25 02:49 | XMS_ITS | Encounter Summary ---
:1940 Author Organization [place] Address [facility] [address] Care Team Providers Name Role Phone Carlos Alberto Corral MD Primary Care Provider Reason for Visit Reason Onset Date Comments Call To Schedule Appointment 03/28/2014 [facility] to [facility] Encounter Details Date Type Department Care Team Description 03/28/2014 Telephone [facility] Omar Berkowitz Call To Schedule Sleep Centers Aniya Rg MD Appointment ([facility] [address] [facility] [address] [facility] S slee p center calling to [address]) [address] [place] [address] [place] [address] [phone] Social History Tobacco Use Types Packs/Day Years [...] on filedocumented in this encounter Care Teams Research Environmental Engineer Relationship Specialty Start Date End Date Carlos Alberto Corral MD PCP - General Internal Medicine 10/15/12 09/18/[address] [address] documented as of this encounter
--- OUTSIDE RECORDS SUMMARY | 2022-09-25 02:49 | XMS_ITS | Encounter Summary ---
:1940 Author Organization [place] Address [address] [place] [address] Care Team Providers Name Role Phone Carlos Alberto Corral MD Primary Care Provider Encounter Details Date Type Department Care Team Description 03/06/2014 Historic Results [facility] Unknown, [address] [place] [address] Social History Tobacco Use Types Packs/Day [...] on filedocumented in this encounter Care Teams Section Cutter Relationship Specialty Start Date End Date Carlos Alberto Corral MD PCP - General Internal Medicine 10/15/12 09/18/[address] [id number] documented as of this encounter
--- OUTSIDE RECORDS SUMMARY | 2022-09-25 02:49 | XMS_ITS | Encounter Summary ---
:1940 Author Organization [place] Address [address] [place] [address] Care Team Providers Name Role Phone Jordan Morales Primary Care Provider Reason for Visit Reason Comments Cystoscopy gross hematuria Encounter Details Date Type Department Care Team Description 10/23/2017 Office Visit [facility] Vidal, Henry Gross hematuria Urology Clinic MD Oscar (Primary Dx) [address] [address] [place] [address] [place], [place] (Work) [address] [phone] Social History Tobacco Use Types Packs/Day Years [...] - - Pulse 62 10/23/2017 3:21 PM ATHLETIC GEAR CUSTODIAN Temperature - - Respiratory Rate - - Oxygen Saturation 93% 10/23/2017 3:21 PM ATHLETIC GEAR CUSTODIAN Inhaled Oxygen Concentration - - Weight 101.6 kg (224 lb) 10/23/2017 3:21 PM ATHLETIC GEAR CUSTODIAN Height 172.7 cm (5' 8) 10/23/2017 3:21 PM ATHLETIC GEAR CUSTODIAN Body Mass Index 34.06 10/23/2017 3:21 PM ATHLETIC GEAR CUSTODIAN documented in this encounter Patient Instructions Patient InstructionsCristo Vargas, BU[place]O - 10/23/2017 3:30 PM CST AFTER YOUR [...] our office with any concerns or questions [phone] ETIC GEAR CUSTODIAN documented in this encounter Progress Notes Henry Vidal MD - 10/23/2017 3:30 PM CST Office Visit Note [facility] UROLOGIC DIAGNOSES: Hematuria, history of [...] atraumatic Cardiac: Not done Back/Flank: Not done BANKING CENTER MANAGER/PNS: Not done Respiratory: Normal non-labored breathing Abdomen: [...] in Consultation: 10 minutes Henry Vidal M.D. ETIC GEAR CUSTODIAN documented in this encounter Nursing Notes Cristo [...] recommended by the MD. Darius Vargas CMA ETIC GEAR CUSTODIAN documented in this encounter Miscellaneous Notes Addendum Note - Cristo Vargas CMA - 10/23/2017 4:09 PM ATHLETIC GEAR CUSTODIAN Addended by: CRISTO VARGAS on: 10/23/2017 04:09 PM Modules accepted: Orders ETIC GEAR CUSTODIAN documented in this encounter Plan of Treatment Not on filedocumented as of this encounter Procedures Procedure Name Priority Date/Time Associated Diagnosis Comme nts CYTOLOGY NON TIME CHECKER Routine 10/23/2017 4:09 PM Gross hematuria Re sults for this ATHLETIC GEAR CUSTODIAN procedure are i n the results section. documented in this encounter Results Cytology non envelope fold operator [[id number]] (10/23/2017 4:09 PM ATHLETIC GEAR CUSTODIAN) Component Value Ref Test Analysis Performed At [facility] Range Method Time Signature Copath Report Patient Name: REBEKAH XIONG MR#: [id number] Specimen #: [id number] Collected: 10/23/2017 Received: 10/27/2017 [...] Jocelyn Hyatt M.D. Processed and screened at [facility] CLINICAL HISTORY: , GROSS: Urine-voided: ??Received 20 ml of yellow, clear fluid, proce ssed as 1 Pap stained AutoCyte. CPT Codes: A: 06078-[id number] TESTING LAB LOCATION: [address] ??[address] COLLECTION SITE: Client: ??[facility] Location: ??[place]O (R) Specimen (Source) Anatomical Collection Method Collection Time Re ceived Time Location / / Volume Laterality Cytologic 10/23/2017 4:09 10/27/2017 8 :38 material PM ATHLETIC GEAR CUSTODIAN AM ATHLETIC GEAR CUSTODIAN (specimen) Henry Vidal MD LAB - OPTIME CLINICAL SPECIM EN Performing Organization Address City/State/ZIP Code Phon e Number [place] documented in this encounter Visit Diagnoses Diagnosis Gross hematuria - Primary documented in this encounter Care Teams E Commerce Strategist Relationship Specialty Start Date End Date Jordan Morales PCP - General Family Practice 09/19/[address] [address] documented as of this encounter
--- OUTSIDE RECORDS SUMMARY | 2022-09-25 02:49 | XMS_ITS | Encounter Summary ---
:1940 Author Organization [place] Address [facility] [place] [address] Care Team Providers Name Role Phone Carlos Alberto Corral MD Primary Care Provider Maikel Brock Primary Care Provider Encounter Details Date Type Department Care Team Description 03/10/2014 Office Visit-[facility] Rafi Jarvis MD [address] [place] [address] [place] [phone] [phone] Social History Tobacco Use Types Packs/Day Years [...] Progress Note Created by: Tyrell Jarvis M.D. [id number] DATE: 03/10/2014 REBEKAH XIONG DATE OF : 1940 AGE: [age] years old Referring Physician: CARLOS ALBERTO CORRAL Referring Clinic: [facility] CURRENT DIAGNOSES 1. - SVT [...] on filedocumented in this encounter Care Teams Java Web Engineer Relationship Specialty Start Date End Date Carlos Alberto Corral MD PCP - General Internal Medicine 10/15/12 09/18/[address] [address] Maikel Brock PCP - General Family Practice 09/19/[address] [address] documented as of this encounter
--- OUTSIDE RECORDS SUMMARY | 2022-09-25 02:49 | XMS_ITS | Encounter Summary ---
:1940 Author Organization [place] Address [address] [place] [address] Care Team Providers Name Role Phone Carlos Alberto Corral MD Primary Care Provider Reason for Visit Reason Comments Tachycardia history afib, states feels l radames hr is fast, sob, shaky Encounter Details Date Type Department Care Team Description 02/17/2014 Emergency [facility] Farida Branham, Hyp ertension (Primary Dx); Dorothy Emergency Palpitations Dept [facility] [address] [place] [address] [place] [phone] [place] [id number] (Wo rk) Social History Tobacco Use Types [...] Care Everywhere. HYPERTENSION, ESTABLISHED, OUT OF CONTROL (DANISH)documented in this encounter Medications at Time of [...] Course ECG @ 11:16 Rate 88 bpm. ME interval 156 ms. QRS duration 102 ms. [...] 2:55 PM I spoke with Dr. Whitman, structural steel erection supervisor for the patient's PCP. Dr. Corral. [...] 02/17/2014 EMERGENCY DEPARTMENT Farida Branham MD 02/17/14 [address] documented in this encounter Plan of Treatment [...] ES <0.012 0.000 - [facility] 0.034 ug/L [facility] Specimen Anatomical Collection Method Collection Time Receive d Time (Source) Location / / Volume Laterality Blood specimen 02/17/2014 11:48 4 (specimen) AM CDT 12:24 PM CDT Farida Branham MD LAB - BLOOD ORDERABLES Performing Organization Address City/State/ZIP Code Phon e Number M [facility] [address] [place] [address] [facility] (ABNORMAL) Comprehensive metabolic panel (02/17/2014 11:48 AM CDT) Analysis Performed At Patho logist Time Signature Sodium 143 133 - 144 [place] mmol/L [facility] Potassium 4.3 3.4 - 5.3 [place] mmol/L [facility] Chloride 101 94 - 109 [place] mmol/L [facility] Carbon Dioxide 28 20 - 32 [place] mmol/L [facility] Anion Gap 14 6 - 17 [place] mmol/L [facility] Glucose 129 (H) 60 - 99 [place] mg/dL [facility] Urea Nitrogen 21 7 - 30 [place] mg/dL [facility] Creatinine 1.04 0.66 - [place] 1.25 mg/dL [facility] GFR Estimate 70 >60 [place] mL/min/1.[address] LAB GFR Estimate If 85 >60 [place] Black mL/min/1.[address] LAB Calcium 8.9 8.5 - 10.4 [place] mg/dL [facility] Bilirubin Total 0.9 0.2 - 1.3 [place] mg/dL [facility] Albumin 4.1 3.3 - 4.9 [place] g/dL [facility] Protein Total 7.1 6.8 - 8.8 [place] g/dL [facility] Alkaline 64 40 - 150 [place] Phosphatase U/L [facility] ALT 41 0 - 70 U/L [facility] AST 40 0 - 45 U/L [facility] Specimen Anatomical Collection Method Collection Time Receive d Time (Source) Location / / Volume Laterality Blood specimen 02/17/2014 11:48 4 (specimen) AM CDT 12:24 PM CDT Farida Branham MD LAB - BLOOD ORDERABLES Performing Organization Address City/State/ZIP Code Phon e Number M [facility] [address] [place], [place] [address] [facility] CBC with platelets + differential (02/17/2014 11:48 AM CDT) [facility] gist Method Time Signature WBC 6.0 4.0 - [place] 11.0 [facility] 10e9/[facility] RBC Count 4.66 4.4 - 5.9 [place] 10e12/L [facility] Hemoglobin 13.8 13.3 - [place] 17.7 g/dL [facility] Hematocrit 42.4 40.0 - [place] 53.0 % [facility] MCV 91 78 - 100 [place] fl [facility] MCH 29.6 26.5 - [place] 33.0 pg [facility] MCHC 32.5 31.5 - [place] 36.5 g/dL [facility] RDW 14.0 10.0 - [place] 15.0 % [facility] Platelet Count 222 150 - 450 [place] 10e9/L [facility] Diff Method Automated [employer] LAB % Neutrophils 71.0 % [facility] % Lymphocytes 19.6 % [facility] % Monocytes 5.7 % [facility] % Eosinophils 3.2 % [facility] % Basophils 0.2 % [facility] % Immature 0.3 % [place] Granulocytes [facility] Absolute 4.2 1.6 - 8.3 [place] Neutrophil 10e9/L [facility] Absolute 1.2 0.8 - 5.3 [place] Lymphocytes 10e9/L [facility] Absolute 0.3 0.0 - 1.3 [place] Monocytes 10e9/L [facility] Absolute 0.2 0.0 - 0.7 [place] Eosinophils 10e9/L [facility] Absolute 0.0 0.0 - 0.2 [place] Basophils 10e9/L [facility] Abs Immature 0.0 0 - 0.4 [place] Granulocytes 10e9/L [facility] Specimen Anatomical Collection Method Collection Time Receive d Time (Source) Location / / Volume Laterality Blood specimen 02/17/2014 11:48 4 (specimen) AM CDT 12:24 PM CDT Farida Branham MD LAB - BLOOD ORDERABLES Performing Organization Address City/State/ZIP Code Phon e Number M [facility] [address] [place] [address] [facility] TSH with free T4 reflex (02/17/2014 11:48 AM CDT) P athologist Signature TSH 4.32 0.4 - 5.0 [place] [facility] Specimen Anatomical Collection Method Collection Time Receive d Time (Source) Location / / Volume Laterality Blood specimen 02/17/2014 11:48 4 (specimen) AM CDT 12:24 PM CDT Farida Branham MD LAB - BLOOD ORDERABLES Performing Organization Address City/State/ZIP Code Phon e Number M [facility] [address] [place], [place] [address] [facility] EKG 12-lead, tracing only (02/17/2014 11:16 [...] 60. documented in this encounter Care Teams [place] Relationship Specialty Start Date End Date Carlos Alberto Corral MD PCP - General Internal Medicine 10/15/12 09/18/[address] [address] documented as of this encounter
--- OUTSIDE RECORDS SUMMARY | 2022-09-25 02:49 | XMS_ITS | Encounter Summary ---
:1940 Author Organization [place] Address [address] [place] [address] Care Team Providers Name Role Phone Maikel Brock Primary Care Provider Reason for Visit Reason Comments Hematuria gross hem Encounter Details Date Type Department Care Team Description 09/23/2017 Office Visit [facility] Racquel Diaz, Gross hematuria Urology Clinic JOHN (Primary Dx) [address] [place], [place] [address] [place] [address] [phone] [address] (Work) [phone] Social History Tobacco Use Types Packs/Day Years [...] - - Pulse 60 09/23/2017 4:07 PM BUSINESS ANALYTICS SPECIALIST Temperature - - Respiratory Rate - - Oxygen Saturation 96% 09/23/2017 4:07 PM BUSINESS ANALYTICS SPECIALIST Inhaled Oxygen Concentration - - Weight 101.6 kg (224 lb) 09/23/2017 4:07 PM BUSINESS ANALYTICS SPECIALIST Height 172.7 cm (5' 8) 09/23/2017 4:07 PM BUSINESS ANALYTICS SPECIALIST Body Mass Index 34.06 09/23/2017 4:07 PM BUSINESS ANALYTICS SPECIALIST documented in this encounter Patient Instructions Patient InstructionsRacquel Diaz PA-C - 09/23/2017 4:00 PM CST -Urinalysis and urine culture to rule out an infection. - Urine cytology to look for abnormal cells. - CT scan. Please call [phone] to schedule this at [facility]. This should be done 1-2 days prior to appointment with the Urologist. - Cystoscopy with the first available urologist to evaluate the interior of the bladder. Follow up as recommended by urologist performing evaluation. NESS ANALYTICS SPECIALIST documented in this encounter Progress Notes Racquel [...] RT) who presented to the ER in [place] with gross hematuria on09/19/17. The patient states he first noticed the hematuria this past Thursday09/14/17. He states it has been ongoing since then and happens every day, but does not happen all day long. He notes he sometimes passes clots with the urine. The patient went to [facility] in [place] where they placed a Nava catheter and performed a urinalysis, which was negative. The patient went back on Thursday to have the catheter removed since it was irritating him. The patient was instructed to follow-up with urology, and made an appointment at [place] for this 09/24/17. The patient continues to [...] REPAIR ; Surgeon: Devyn Ocampo MD; Location: [facility] ??? THYROIDECTOMY Current Outpatient Prescriptions Medication [...] ?? The right kidney measures 9.3 cm [id number]. No mass or obstruction. ?? The left kidney measures 10.4 cm [id number]. No mass or obstruction. ?? The bladder [...] and coordination of care. Racquel Diaz PA-C [facility]rology NESS ANALYTICS SPECIALIST documented in this encounter Nursing Notes Cristo Rosenberg CMA - 09/23/2017 4:00 PM CST Pt in and out of ED for gross hem. Pt has imaging in [facility]. Pt in and out of ED for blood in the urine. Darius Rosenberg CMA NESS ANALYTICS SPECIALIST documented in this encounter Plan of Treatment Not on filedocumented as of this encounter Procedures Procedure Name Priority Date/Time Associated Comments Diagnosis URINE MACROSCOPIC Routine 09/23/2017 4:17 PM Gross hematuria R esults for this ONLY BUSINESS ANALYTICS SPECIALIST procedure are i n the results section. documented in this encounter Results CT Abdomen Pelvis w/o Contrast (10/21/2017 3:47 PM BUSINESS ANALYTICS SPECIALIST) Anatomical Region Laterality Modality Abdomen/Pelvis, SUBRAD CT BODY, UMP CT ABDOMEN PELVIS, Computed Tomography RAD CT Specimen (Source) Anatomical Location Collection Method / Collectio n Time Received Time / Laterality Volume Impressions 10/22/2017 7:56 AM BUSINESS ANALYTICS SPECIALIST IMPRESSION: No urinary tract calculi or hydronephrosis. Prostate gland is not enlarged but a few prostatic calc ifications are present. Follow-up as clinically warranted. MEGA WILSON MD Narrative 10/22/2017 7:56 [address]LYTICS SPECIALIST [address] ABDOMEN AND PELVIS WITHOUT CONTRAST 10/21/2017 [...] (ABNORMAL) UA without Microscopic (09/23/2017 4:17 PM [facility]) [facility] Method Time Signature Color Urine Yellow 09/23/2017 [place] 4:21 PM [facility] Appearance Urine Clear 09/23/2017 [place] 4:21 PM [facility] Glucose Urine Negative NEG^Negat 09/23/2017 [place] emily mg/dL 4:21 PM [facility] Bilirubin Urine Negative NEG^Negat 09/23/2017 [place] emily 4:21 PM [facility] Ketones Urine Negative NEG^Negat 09/23/2017 [place] emily mg/dL 4:21 PM [facility] Specific [place] 1.015 1.003 - 09/23/2017 [place] Urine 1.035 4:21 PM [facility] Blood Urine Moderate (A) NEG^Negat 09/23/2017 [place] emily 4:21 PM [facility] pH Urine 6.0 5.0 - 7.0 09/23/2017 [place] pH 4:21 PM [facility] Protein Albumin 100 (A) NEG^Negat 09/23/2017 [place] Urine emily mg/dL 4:21 PM [facility] Urobilinogen 0.2 0.2 - 1.0 09/23/2017 [place] Urine EU/dL 4:21 PM BUSINESS ANALYTICS SPECIALIST [facility] Nitrite Urine Negative NEG^Negat 09/23/2017 [place] emily 4:21 PM BUSINESS ANALYTICS SPECIALIST [facility] Leukocyte Negative NEG^Negat 09/23/2017 [place] Esterase Urine emily 4:21 PM BUSINESS ANALYTICS SPECIALIST [facility] Source Midstream 09/23/2017 [place] Urine 4:21 PM BUSINESS ANALYTICS SPECIALIST [facility] Specimen (Source) Anatomical Collection Method Collection Time Re ceived Time Location / / Volume Laterality Examination of 09/23/2017 4:17 09/23/2017 4:18 midstream urine PM BUSINESS ANALYTICS SPECIALIST PM BUSINESS ANALYTICS SPECIALIST specimen (procedure) Racquel Diaz PA-C LAB - URINE ORDERABLES Performing Organization Address City/State/ZIP Code Phon e Number [facility] [address] [place] [address] [facility] [address] documented in this encounter Visit Diagnoses Diagnosis Gross hematuria - Primary Gross hematuria documented in this encounter Care Teams Rocket Scientist Relationship Specialty Start Date End Date Maikel Brock PCP - General Family Practice 09/19/[address] [address] documented as of this encounter
--- OUTSIDE RECORDS SUMMARY | 2022-09-25 02:49 | XMS_ITS | Encounter Summary ---
:1940 Author Organization [place] Address [facility] [place] [address] Care Team Providers Name Role Phone Carlos Alberto Corral MD Primary Care Provider Maikel Brock Primary Care Provider Encounter Details Date Type Department Care Team Description 03/03/2014 Office Visit-[facility] Jey Parks MD [address] [place] [address] [place] [address] (Wo rk) Social History Tobacco Use [...] [facility] CURRENT DIAGNOSES 1. - Shortness of Breath, [...] and 3; Exercise - exercises regularly, elyptical employment trainer, walking and 3-4 x week; REVIEW [...] disease. We will refer him to a pulp refiner operator to see if medical therapy with metoprolol [...] 1 week 2. F/U with Any EP FLEET ADMINISTRATIVE ASSISTANT/PA 4-7 days, Aliya Raygoza, Marybel Ahumada, Cookie Bragg ONLY 3. Sleep Consult Schedule At [facility] Jey Parks M.D. documented in this encounter Plan of Treatment Not on filedocumented as of this encounter Visit Diagnoses Not on filedocumented in this encounter Care Teams Sole Filler Relationship Specialty Start Date End Date Carlos Alberto Corral MD PCP - General Internal Medicine 10/15/12 09/18/[address] [address] Maikel Brock PCP - General Family Practice 09/19/[address] [address] documented as of this encounter
--- OUTSIDE RECORDS SUMMARY | 2022-09-25 02:50 | XMS_ITS | Encounter Summary ---
:1940 Author Organization [place] Address [facility] [place] [address] Care Team Providers Name Role Phone Unavailable Primary Care Provider Unavailable Encounter Details Date Type Department Care Team Description 01/03/2010 Emergency room [facility] Se yarelis Silvestre MD [facility] EMERGENCY PHY JOHAN PA Results [address] [place], [place] [address] (Wo rk) Social History Tobacco Use Types Packs/Day Years Used Date Smoking Tobacco: Never Assessed Sex Assigned at Date Recorded Not on file documented as of this encounter Progress Notes Ciro Silvestre - 01/04/2010 5:15 PM BUNDLE CLERK FINAL CHIEF COMPLAINT: Rapid heart rate, shortness of breath and lightheadedness. HISTORY OF PRESENT ILLNESS: Rebekah Xiong is a 69-year-old male who comes in by private vehicle after driving himself here because of feeling his heart racing and feeling a little short of breath costa little lightheaded. This all started about 6:30 this morning and [facility] He denies any chest pain, no [...] rapid heart rate. He was connected to supervisor estimator and drafter and pulse oximetry monitor. He had oxygen [...] discharged home with close follow up with [facility] as well as his own primary doctor, [...] EM#[id number] Name: REBEKAH XIONG MRN: [id number] Account: [id number] : 1940 Visit Date: 01/03/2010 Document: [id number] cc: Carlos Alberto Corral MD [facility] LE CLERK documented in this encounter Plan of Treatment Not on filedocumented as of this encounter Visit Diagnoses Not on filedocumented in this encounter
--- OUTSIDE RECORDS SUMMARY | 2022-09-25 02:50 | XMS_ITS | Encounter Summary ---
:1940 Author Organization [place] Address [address] [place] [address] Care Team Providers Name Role Phone Unavailable Primary Care Provider Unavailable Encounter Details Date Type Department Care Team Description 03/12/2005 Historic Certified Control Systems Technician [facility] Preet Mandel [facility] Radiation EMD Oncology [address] [facility] [address] [phone] [place], [address] Floor (Work) [place] [id number] Social History Tobacco Use Types Packs/Day Years Used Date Smoking Tobacco: Never Assessed Sex Assigned at Date Recorded Not on file documented as of this encounter Progress Notes Eron Mandel MD - 10/01/2011 2:37 AM INDUSTRIAL AERIAL INSTALLER PROBLEM:Prostate cancer. Larisa Score 6. PSA 4.8. [...] participate in his care. ERON MANDEL MD Welding Equipment Repairer Supervisor Radiation Oncology Dictated by: MD Hansel NOE: 05/01/2005 11:36 MT: [email or web address] Document: [id number] CC: MD SAGAR HENRY MD CHARLES MEYERS, MD LCN: [id number] DSC: 03/12/2005 [facility] of [place], [place] Name: MR#: : ELVIRA: REBEKAH XIONG -[id number] 1940 03/12/2005 THERAPEUTIC RADIOLOGY PROGRESS/FOLLOW UP NOTE Page 1 of 1 STRIAL AERIAL INSTALLER documented in this encounter Plan of Treatment Not on filedocumented as of this encounter Visit Diagnoses Not on filedocumented in this encounter
--- OUTSIDE RECORDS SUMMARY | 2022-09-25 02:50 | XMS_ITS | Encounter Summary ---
:1940 Author Organization [place] Address [address] [place] [address] Care Team Providers Name Role Phone Unavailable Primary Care Provider Unavailable Encounter Details Date Type Department Care Team Description 11/01/2004 Historic Results Allergy and Asthma Ortiz Shay Phillips-Wangensteen MD Building XXX RESIGNED XXX 2nd Floor, Clinic 2A [address] [address] [facility] [address] [place], [place] [address] [phone] Social History Tobacco Use Types Packs/Day Years Used Date Smoking Tobacco: Never Assessed Sex Assigned at Date Recorded Not on file documented as of this encounter Plan of Treatment Not on filedocumented as of this encounter Procedures Procedure Name Priority Date/Time Associated Comments Diagnosis C-REACTIVE PROTEIN Routine 11/01/2004 5:18 PM Res ults for this FOUNDRY MOLDER procedure are i n the results section. HEMOGRAM DIFFERENTIAL Routine 11/01/2004 5:18 PM Results for this AND PLATELET FOUNDRY MOLDER procedure are i n the results section. TRYPTASE Routine 11/01/2004 5:18 PM Results f or this FOUNDRY MOLDER procedure are i n the results section. THYROID PEROXIDASE Routine 11/01/2004 5:18 PM Res ults for this ANTIBODY FOUNDRY MOLDER procedure are i n the results section. PLATELET COUNT Routine 11/01/2004 5:18 PM Results for this FOUNDRY MOLDER procedure are i n the results section. IGE Routine 11/01/2004 5:18 PM Results f or this FOUNDRY MOLDER procedure are i n the results section. HEPATIC FUNCTION PANEL Routine 11/01/2004 5:18 PM Results for this FOUNDRY MOLDER procedure are i n the results section. COMPLEMENT TOTAL Routine 11/01/2004 5:18 PM Resul ts for this FOUNDRY MOLDER procedure are i n the results section. COMPLEMENT C3 Routine 11/01/2004 5:18 PM Results for this FOUNDRY MOLDER procedure are i n the results section. ANTINUCLEAR ANTIBODY Routine 11/01/2004 5:18 PM R esults for this SCREEN BY EIA FOUNDRY MOLDER procedure are in the results section. ANTI THYROGLOBULIN Routine 11/01/2004 5:18 PM Res ults for this ANTIBODY FOUNDRY MOLDER procedure are i n the results section. documented in this encounter Results Anti thyroglobulin antibody (11/01/2004 5:18 PM FOUNDRY MOLDER) Analysis Performed At Patho logist Time Signature Thyroglobulin <20 <40 IU/mL MISYS Antibody Specimen Anatomical Collection Method Collection Time Receive d Time (Source) Location / / Volume Laterality 11/01/2004 5:18 PM 5 5:09 FOUNDRY MOLDER PM FOUNDRY MOLDER Ortiz Shay MD LAB - BLOOD ORDERABLES Performing Organization Address City/State/ZIP Code Phon e Number MISYS Hepatic panel (11/01/2004 5:18 PM FOUNDRY MOLDER) P athologist Signature AST 35 0 - [...] Volume Laterality 11/01/2004 5:18 PM 5 5:09 FOUNDRY MOLDER PM FOUNDRY MOLDER Ortiz Shay MD LAB - BLOOD ORDERABLES Performing Organization Address City/State/ZIP Code Phon e Number MISYS Complement C3 (11/01/2004 5:18 PM FOUNDRY MOLDER) P athologist Signature Complement C3 115 90 - 200 MISYS mg/dL Specimen Anatomical Collection Method Collection Time Receive d Time (Source) Location / / Volume Laterality 11/01/2004 5:18 PM 5 5:09 FOUNDRY MOLDER PM FOUNDRY MOLDER Ortiz Shay MD LAB - BLOOD ORDERABLES Performing Organization Address [facility] Phon e Number MISYS Complement total (11/01/2004 5:18 PM FOUNDRY MOLDER) athologist Signature Complement CH50 120 MISYS Total Comment: Unit: (Note) REFERENCE INTERVAL: Complement Activity, Total EIA Less than 60 Units ........ Low 60-144 Units .............. Normal 145 Units or greater ...... High The above test was performed at: [facility], [address] [place] [id number] Specimen Anatomical Collection Method Collection Time Receive d Time (Source) Location / / Volume Laterality 11/01/2004 5:18 PM 5 5:09 FOUNDRY MOLDER PM FOUNDRY MOLDER Ortiz Shay MD LAB - BLOOD ORDERABLES Performing Organization Address [facility] Phon e Number MISYS C-Reactive protein (11/01/2004 5:18 PM FOUNDRY MOLDER) athologist [facility] C-Reactive 0.27 0.00 - 0.80 MISYS Protein mg/dL Specimen Anatomical Collection Method Collection Time Receive d Time (Source) Location / / Volume Laterality 11/01/2004 5:18 PM 5 5:09 FOUNDRY MOLDER PM FOUNDRY MOLDER Ortiz Shay MD LAB - BLOOD ORDERABLES Performing Organization Address [facility] Phon e Number MISYS Antinuclear antibody screen by EIA (11/01/2004 5:18 PM FOUNDRY MOLDER) athologist Signature GABE Screen by 2.5 MISYS EIA Comment: Interpretation: ??Weakly Positive Follow-up testing is not recommended un less clinically indicated. ??GABE samples are retained in the Protein Lab for 30 days. ??Please contact the laboratory to request additional tests. Specimen Anatomical Collection Method Collection Time Receive d Time (Source) Location / / Volume Laterality 11/01/2004 5:18 PM 5 5:09 FOUNDRY MOLDER PM FOUNDRY MOLDER Ortiz Shay MD LAB - BLOOD ORDERABLES Performing Organization Address [facility] Phon e Number MISYS Hemogram differential and platelet (11/01/2004 5:18 PM FOUNDRY MOLDER) Patholo gist Method Time Signature MCV 89 [...] Volume Laterality 11/01/2004 5:18 PM 5 5:09 FOUNDRY MOLDER PM FOUNDRY MOLDER Ortiz Shay MD LAB - BLOOD ORDERABLES Performing Organization Address City/State/ZIP [facility] Phon e Number MISYS (ABNORMAL) IgE (11/01/2004 5:18 PM FOUNDRY MOLDER) P athologist Signature IGE 592 (H) 0 - 114 MISYS KIU/L Specimen Anatomical Collection Method Collection Time Receive d Time (Source) Location / / Volume Laterality 11/01/2004 5:18 PM 5 5:09 FOUNDRY MOLDER PM FOUNDRY MOLDER Ortiz Shay MD LAB - BLOOD ORDERABLES Performing Organization Address City/State/ZIP Code Phon e Number MISYS (ABNORMAL) Thyroid peroxidase antibody (11/01/2004 5:18 PM FOUNDRY MOLDER) P athologist Signature Thyroid 169 (H) <35 IU/mL MISYS Peroxidase Antibody Specimen Anatomical Collection Method Collection Time Receive d Time (Source) Location / / Volume Laterality 11/01/2004 5:18 PM 5 5:09 FOUNDRY MOLDER PM FOUNDRY MOLDER Ortiz Shay MD LAB - BLOOD ORDERABLES Performing Organization Address City/[facility] Code Phon e Number MISYS Tryptase (11/01/2004 5:18 PM FOUNDRY MOLDER) P athologist Signature Tryptase 8.8 MISYS Comment: Reference range: 0.4 to 10.9 Unit: ug/L (Note) TEST INFORMATION: Tryptase This test uses a kit designated by the mike aldana as for research use, not for clinical use. The performance characteristics of this test were valida beltran by [employer] The U.S. Food and Kojo g Administration (FDA) has not approved this test. The re sults are not intended to be used as the sole means fo r clinical diagnosis or patient management decision s. [employer] is authorized under Clinical Laboratory Imp rovement Amendments (CLIA) and by all states to p erform high- complexity testing. The above test was performed at: [facility], [address] [place] [id number] Specimen Anatomical Collection Method Collection Time Receive d Time (Source) Location / / Volume Laterality 11/01/2004 5:18 PM 5 5:09 FOUNDRY MOLDER PM FOUNDRY MOLDER Ortiz Shay MD LAB - BLOOD ORDERABLES Performing Organization Address City/State/[facility] Phon e Number MISYS Platelet count (11/01/2004 5:18 PM FOUNDRY MOLDER) athologist Signature Platelet Count 251 150 - 450 MISYS 10e9/L Specimen Anatomical Collection Method Collection Time Receive d Time (Source) Location / / Volume Laterality 11/01/2004 5:18 PM 5 5:53 FOUNDRY MOLDER PM FOUNDRY MOLDER Ortiz Shay MD LAB - BLOOD ORDERABLES Performing Organization Address City/[facility] Code Phon e Number MISYS documented in this encounter Visit Diagnoses Not on filedocumented in this encounter
--- OUTSIDE RECORDS SUMMARY | 2022-09-25 02:50 | XMS_ITS | Encounter Summary ---
:1940 Author Organization [place] Address [address] [place] [address] Care Team Providers Name Role Phone Unavailable Primary Care Provider Unavailable Encounter Details Date Type Department Care Team Description 01/03/2010 Historic Results INTERFACED REPORT Manuel Silvestre MD EMERGENCY PHYSIC [facility] FERNANDA BREWER [address] [place], [place] [address] (Wo rk) Social History Tobacco Use Types Packs/Day Years Used Date Smoking Tobacco: Never Assessed Sex Assigned at Date Recorded Not on file documented as of this encounter Plan of Treatment Not on filedocumented as of this encounter Procedures Procedure Name Priority Date/Time Associated Comments Diagnosis CBC WITH PLATELETS & STAT 01/03/2010 8:50 AM R esults for this DIFFERENTIAL GOLDSMITH APPRENTICE procedure are i n the results section. TSH WITH FREE T4 STAT 01/03/2010 8:50 AM Resul ts for this REFLEX GOLDSMITH APPRENTICE procedure are i n the results section. TROPONIN I STAT 01/03/2010 8:50 AM Results f or this GOLDSMITH APPRENTICE procedure are i n the results section. D DIMER QUANTITATIVE STAT 01/03/2010 8:50 AM R esults for this GOLDSMITH APPRENTICE procedure are i n the results section. COMPREHENSIVE STAT 01/03/2010 8:50 AM Results for this METABOLIC PANEL GOLDSMITH APPRENTICE procedure ar e in the results section. documented in this encounter Results (ABNORMAL) CBC with platelets differential (01/03/2010 8:50 AM GOLDSMITH APPRENTICE) [facility] Method Time Signature MCV 92 78 - [...] Volume Laterality 01/03/2010 8:50 AM 0 8:59 GOLDSMITH APPRENTICE AM GOLDSMITH APPRENTICE Ciro Silvestre MD LAB - BLOOD ORDERABLES Performing Organization Address City/State/ZIP Code Phon e Number MISYS D dimer quantitative (01/03/2010 8:50 AM GOLDSMITH APPRENTICE) athologist Signature D Dimer 0.4 0.0 - 0.50 MISYS ug/ml FEU Specimen Anatomical Collection Method Collection Time Receive d Time (Source) Location / / Volume Laterality 01/03/2010 8:50 AM 0 8:59 GOLDSMITH APPRENTICE AM GOLDSMITH APPRENTICE Ciro Silvestre MD LAB - BLOOD ORDERABLES Performing Organization Address City/State/ZIP Code Phon e Number MISYS (ABNORMAL) Comprehensive metabolic panel (01/03/2010 8:50 AM GOLDSMITH APPRENTICE) athologist Signature Sodium 139 133 - 144 [...] Volume Laterality 01/03/2010 8:50 AM 0 8:59 GOLDSMITH APPRENTICE AM GOLDSMITH APPRENTICE Ciro Silvestre MD LAB - BLOOD ORDERABLES Performing Organization Address City/State/ZIP Code Phon e Number MISYS Troponin I (01/03/2010 8:50 AM GOLDSMITH APPRENTICE) P athologist Signature Troponin I ES 0.029 0.000 - MISYS 0.034 ug/L Specimen Anatomical Collection Method Collection Time Receive d Time (Source) Location / / Volume Laterality 01/03/2010 8:50 AM 0 8:59 GOLDSMITH APPRENTICE AM GOLDSMITH APPRENTICE Ciro Silvestre MD LAB - BLOOD ORDERABLES Performing Organization Address City/State/ZIP Code Phon e Number MISYS TSH with free T4 reflex (01/03/2010 8:50 AM GOLDSMITH APPRENTICE) athologist Signature TSH 4.82 0.4 - 5.0 MISYS mU/L Specimen Anatomical Collection Method Collection Time Receive d Time (Source) Location / / Volume Laterality 01/03/2010 8:50 AM 0 8:59 GOLDSMITH APPRENTICE AM GOLDSMITH APPRENTICE Ciro Silvestre MD LAB - BLOOD ORDERABLES Performing Organization Address City/State/ZIP Code Phon e Number MISYS documented in this encounter Visit Diagnoses Not on filedocumented in this encounter
--- OUTSIDE RECORDS SUMMARY | 2022-09-25 02:50 | XMS_ITS | Encounter Summary ---
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 Specimen Anatomical Collection Method Collection [...] Comment: Interp: Class 0 - Negative, 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 Specimen Anatomical Collection Method Collection Time Receive d Time (Source) Location / / Volume Laterality 01/03/2008 12:09 01/07/2008 8:13 PM CDT AM CDT Ortiz Shay MD LAB - BLOOD ORDERABLES Performing Organization Address City/[facility]/ZIP Code Phon e Number MISYS Allergen peanut IgE (01/03/2008 12:09 PM CDT) P athologist Signature Allergen Peanut <0.35 <0.35 MISYS KU(A)/L Comment: Interp: Class 0 - Negative, 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 Specimen Anatomical Collection Method Collection Time Receive d Time (Source) Location / / Volume Laterality 01/03/2008 12:09 01/07/2008 8:13 PM CDT AM CDT Ortiz Shay MD LAB - BLOOD ORDERABLES Performing Organization Address City/[facility] Code Phon e Number MISYS Allergen soybean IgE (01/03/2008 12:09 PM CDT) P athologist Signature Allergen <0.35 <0.35 MISYS Soybean IgE KU(A)/L Comment: Interp: Class 0 - Negative, 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 Specimen Anatomical Collection Method Collection Time Receive d Time (Source) Location / / Volume Laterality 01/03/2008 12:09 01/07/2008 8:13 PM CDT AM CDT Ortiz Shay MD LAB - BLOOD ORDERABLES Performing Organization Address City/[facility] Code Phon e Number MISYS Allergen milk IgE (01/03/2008 12:09 PM CDT) P athologist Signature Allergen Milk <0.35 <0.35 MISYS KU(A)/L Comment: Interp: Class 0 - Negative, 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 Specimen Anatomical Collection Method Collection Time Receive d Time (Source) Location / / Volume Laterality 01/03/2008 12:09 01/07/2008 8:13 PM CDT AM CDT Ortiz Shay MD LAB - BLOOD ORDERABLES Performing Organization Address City/[facility] Phon e Number MISYS (ABNORMAL) Allergen [...] - BLOOD ORDERABLES Performing Organization Address [facility] Code Phon e Number MISYS (ABNORMAL) [...] - BLOOD ORDERABLES Performing Organization Address [facility] Phon e Number MISYS Allergen tomato IgE (01/03/2008 12:09 PM CDT) P athologist Signature Allergen Tomato <0.35 <0.35 MISYS KU(A)/L Comment: Interp: Class 0 - Negative, 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 Specimen Anatomical Collection Method Collection Time Receive d Time (Source) Location / / Volume Laterality 01/03/2008 12:09 01/07/2008 8:13 PM CDT AM CDT Ortiz Shay MD LAB - BLOOD ORDERABLES Performing Organization Address [facility] Phon e Number MISYS Allergen codfish IgE (01/03/2008 12:09 PM CDT) P athologist Signature Allergen <0.35 <0.35 MISYS Fish(Cod) KU(A)/L Comment: Interp: Class 0 - Negative, 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 Specimen Anatomical Collection Method Collection Time Receive d Time (Source) Location / / Volume Laterality 01/03/2008 12:09 01/07/2008 8:13 PM CDT AM CDT Ortiz Shay MD LAB - BLOOD ORDERABLES Performing Organization Address [facility] Code Phon e Number MISYS Allergen orange IgE (01/03/2008 12:09 PM CDT) P athologist Signature Allergen [place] <0.35 <0.35 MISYS KU(A)/L Comment: Interp: Class 0 - Negative, 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 Specimen Anatomical Collection Method Collection Time Receive d Time (Source) Location / / Volume Laterality 01/03/2008 12:09 01/07/2008 8:13 PM CDT AM CDT Ortiz Shay MD LAB - BLOOD ORDERABLES Performing Organization Address City/[facility]/ZIP Code Phon e Number MISYS Allergen wheat IgE (01/03/2008 12:09 PM CDT) P athologist Signature Allergen Wheat <0.35 <0.35 MISYS KU(A)/L Comment: Interp: Class 0 - Negative, 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 Specimen Anatomical Collection Method Collection Time Receive d Time (Source) Location / / Volume Laterality 01/03/2008 12:09 01/07/2008 8:13 PM CDT AM CDT Ortiz Shay MD LAB - BLOOD ORDERABLES Performing Organization Address City/[facility]/ZIP Code Phon e Number MISYS Allergen tuna IgE (01/03/2008 12:09 PM CDT) P athologist Signature Allergen Tuna <0.35 <0.35 MISYS KU(A)/L Comment: Interp: Class 0 - Negative, 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 Specimen Anatomical Collection Method Collection Time Receive d Time (Source) Location / / Volume Laterality 01/03/2008 12:09 01/07/2008 8:13 PM CDT AM CDT Ortiz Shay MD LAB - BLOOD ORDERABLES Performing Organization Address City/[facility]/ZIP Code Phon e Number MISYS Allergen barley IgE (01/03/2008 12:09 PM CDT) P athologist Signature Allergen Barley <0.35 <0.35 MISYS KU(A)/L Comment: Interp: Class 0 - Negative, 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 Specimen Anatomical Collection Method Collection Time Receive d Time (Source) Location / / Volume Laterality 01/03/2008 12:09 01/07/2008 8:13 PM CDT AM CDT Ortiz Shay MD LAB - BLOOD ORDERABLES Performing Organization Address City/[facility] Code Phon e Number MISYS Allergen corn IgE (01/03/2008 12:09 PM CDT) P athologist Signature Allergen [place] <0.35 <0.35 MISYS KU(A)/L Comment: Interp: Class 0 - Negative, 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 Specimen Anatomical Collection Method Collection Time Receive d Time (Source) Location / / Volume Laterality 01/03/2008 12:01/07/2008 8:13 PM CDT AM CDT Ortiz Shay MD LAB - BLOOD ORDERABLES Performing Organization Address [facility] Phon e Number MISYS Allergen rice IgE (01/03/2008 12:09 PM CDT) P athologist Signature Allergen Rice <0.35 <0.35 MISYS KU(A)/L Comment: Interp: Class 0 - Negative, 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
--- OUTSIDE RECORDS SUMMARY | 2022-09-25 02:50 | XMS_ITS | Encounter Summary ---
:1940 Author Organization [place] Address [address] [place] [address] Care Team Providers Name Role Phone Unavailable [...] function test procedure (01/18/2007 9:14 AM CDT) [facility] Method Time Signature Pulmonary RADIOLOGY Function Test Name: ? REBEKAH XIONG ?ID: ?[id number] RESULTS Doctor: ?TAJ, MAL PATSY ? Height: ? 69.00 in ? Age: ?66 Tech: ? PETER RAGSDALE R ? Weight: ? 189.40 lbs ?? Sex: ?Male Date: ?01/18/2007 ?Time: ??09:14:00 AM ? Race: ? <Unspecified> Secondary ID: PT ID: ? [id number] ? Doctor ID: Change Status: Diagnosis: ?ALLERGIES [...]
--- OUTSIDE RECORDS SUMMARY | 2022-09-25 02:50 | XMS_ITS | Encounter Summary ---
:1940 Author Organization [place] Address [address] [place] [address] Care Team Providers Name Role Phone Unavailable Primary Care Provider Unavailable Encounter Details Date Type Department Care Team Description 06/21/2008 Office Visit-[facility] Allergy and Asthma Provider, [facility] Clinic [address] [place] [phone] Social History Tobacco Use Types Packs/Day Years Used Date Smoking Tobacco: Never Assessed Sex Assigned at Date Recorded Not on file documented as of this encounter Progress Notes Provider, [facility] Nurse - 06/21/2008 1:02 PM CDT Leather Etcher: Negra Nur Status: Signed Encounter: 21 Jun 2008 Type: Allergy Chart Note Pt pharmacy requesting enrique for pt. Dr Shay informed see new scanned orders. Rx faxed to [facility] Electronically signed by:Negra Nur RN Jun 21 2008 5:02PM DATABASE SUPPORT Provider, [facility] Nurse - 06/21/2008 1:02 PM CDT Leather Etcher: Negra Nur Status: Signed Encounter: 21 Jun 2008 Type: Allergy Chart Note Pt pharmacy requesting refill on fexofenadine. Med was discontinued at last appt as was all other meds for urticaria. Dr Shay infomred no new orders. Denied refill pt to call if having problems pharmacy notified Electronically signed by:Negra Nur RN Jun 21 2008 1:04PM DATABASE SUPPORT documented in this encounter Plan of Treatment Not on filedocumented as of this encounter Visit Diagnoses Not on filedocumented in this encounter
--- OUTSIDE RECORDS SUMMARY | 2022-09-25 02:50 | XMS_ITS | Encounter Summary ---
:1940 Author Organization [place] Address [address] [place] [address] Care Team Providers Name Role Phone Unavailable Primary Care Provider Unavailable Encounter Details Date Type Department Care Team Description 01/03/2008 Office Visit-[facility] Allergy and Asthma Ortiz Shay Phillips-Wangensteen IN Building XXX RESIGNED XXX 2nd Floor, Clinic 2A [address] [facility] [address] [phone] Social History Tobacco Use Types Packs/Day Years Used Date Smoking Tobacco: Never Assessed Sex Assigned at Date Recorded Not on file documented as of this encounter Progress Notes Ortiz Shay - 01/03/2008 11:20 AM CDT Planning Official: Ortiz Shay Status: Final - Signature Encounter: 03 Jan 2008 Type: Allergy and Asthma Visit Pulmonary, Allergy and Critical Care Department of Medicine [place] Mail Code [address] [place] [address] Office: [phone] Allergy and Asthma Clinic [facility] Fifth Floor, Clinic 5A [address] [place] [address] RE: Abraham Mancuso : 1940 [place]: 01/03/2008 [...] if his symptoms warrant. Ortiz Shay M.D. cylinder die machine helper Director, Asthma & Allergy Program MB:laurie Electronically signed by:Sanju Shay M.D. Jan 17 2008 12:42PM FIRER BISQUE KILN Ortiz Shay - 01/03/2008 11:20 AM CDT Planning Official: Ortiz Shay Status: Final - Signature Encounter: 03 Jan 2008 Type: Allergy and Asthma Visit Pulmonary, Allergy and Critical Care Department of Medicine [place] Mail Code [address] [place] [address] Office: [phone] Allergy and Asthma Clinic [facility] Fifth Floor, Clinic [address]A [address] [place] [address] RE: Abraham Mancuso : 1940 [place]: 01/03/2008 OUTPATIENT VISIT NOTE ADDENDUM: 1. We plan to see how he does with the addition of Periactin. Ortiz Shay M.D. cylinder die machine helper Director, Asthma & Allergy Program MB:laurie Electronically signed by:Sanju Shay M.D. Jan 17 2008 12:42PM FIRER BISQUE KILN documented in this encounter Plan of Treatment Not on filedocumented as of this encounter Visit Diagnoses Not on filedocumented in this encounter
--- OUTSIDE RECORDS SUMMARY | 2022-09-25 02:50 | XMS_ITS | Encounter Summary ---
:1940 Author Organization [place] Address [address] [place] [address] Care Team Providers Name Role Phone Unavailable Primary Care Provider Unavailable Encounter Details Date Type Department Care Team Description 02/10/2008 [facility] [place] [address] [address] [place] [address] Social History Tobacco Use Types Packs/Day [...]
--- OUTSIDE RECORDS SUMMARY | 2022-09-25 02:50 | XMS_ITS | Encounter Summary ---
:1940 Author Organization [place] Address [address] [place] [address] Care Team Providers Name Role Phone Unavailable Primary Care Provider Unavailable Encounter Details Date Type Department Care Team Description 09/15/2005 Historic Results [facility] Irina Mandel, Radiation Oncology [place] [address] [address] [place] [address] Social History Tobacco Use Types Packs/Day Years Used Date Smoking Tobacco: Never Assessed Sex Assigned at Date Recorded Not on file documented as of this encounter Plan of Treatment Not on filedocumented as of this encounter Procedures Procedure Name Priority Date/Time Associated Diagnosis Comme nts PSA TUMOR MARKER Routine 09/15/2005 4:03 PM Resul ts for this RN IMMUNOLOGY procedure are i n the results section. documented in this encounter Results PSA tumor marker (09/15/2005 4:03 PM RN IMMUNOLOGY) athologist Signature PSA 0.41 0 - 4 ug/L MISYS Specimen Anatomical Collection Method Collection Time Receive d Time (Source) Location / / Volume Laterality 09/15/2005 4:03 PM 5 3:55 RN IMMUNOLOGY PM RN IMMUNOLOGY Irina Mandel MD LAB - BLOOD ORDERABLES Performing Organization Address City/State/ZIP Code Phon e Number MISYS documented in this encounter Visit Diagnoses Not on filedocumented in this encounter
--- OUTSIDE RECORDS SUMMARY | 2022-09-25 02:50 | XMS_ITS | Encounter Summary ---
:1940 Author Organization [place] Address [address] [place] [address] Care Team Providers Name Role Phone Carlos Alberto Corral MD Primary Care Provider Encounter Details Date Type Department Care Team Description 01/09/2010 Historic Results [facility] Heart Unknown, [facility] [address] [place] [address] Social History Tobacco Use Types Packs/Day [...] on filedocumented in this encounter Care Teams Temper Mill Operator Relationship Specialty Start Date End Date Carlos Alberto Corral MD PCP - General Internal Medicine 10/15/12 09/18/[address] [address] documented as of this encounter
--- OUTSIDE RECORDS SUMMARY | 2022-09-25 02:50 | XMS_ITS | Encounter Summary ---
:1940 Author Organization [place] Address [address] [place] [address] Care Team Providers Name Role Phone Unavailable Primary Care Provider Unavailable Encounter Details Date Type Department Care Team Description 12/06/2007 Historic Results Allergy and Asthma Ortiz Shay Phillips-Wangensteen MD Building XXX RESIGNED XXX 2nd Floor, Clinic 2A [address] [place] [id number] [facility] [address] [place], [place] [address] [phone] Social History Tobacco Use Types Packs/Day Years Used Date Smoking Tobacco: Never Assessed Sex Assigned at Date Recorded Not on file documented as of this encounter Plan of Treatment Not on filedocumented as of this encounter Procedures Procedure Name Priority Date/Time Associated Comments Diagnosis TSH Routine 12/06/2007 10:08 Results for this AM SUPERVISOR WOOD ROOM procedure are i n the results section. TRYPTASE Routine 12/06/2007 10:08 Results for this AM SUPERVISOR WOOD ROOM procedure are i n the results section. THYROID PEROXIDASE Routine 12/06/2007 10:08 Resul ts for this ANTIBODY AM SUPERVISOR WOOD ROOM procedure are i n the results section. T4 FREE Routine 12/06/2007 10:08 Results for this AM SUPERVISOR WOOD ROOM procedure are i n the results section. T3 TOTAL Routine 12/06/2007 10:08 Results for this AM SUPERVISOR WOOD ROOM procedure are i n the results section. IGE Routine 12/06/2007 10:08 Results for this AM SUPERVISOR WOOD ROOM procedure are i n the results section. COMPLEMENT TOTAL Routine 12/06/2007 10:08 Results for this AM SUPERVISOR WOOD ROOM procedure are i n the results section. ANTINUCLEAR ANTIBODY Routine 12/06/2007 10:08 Res ults for this SCREEN BY EIA AM SUPERVISOR WOOD ROOM procedure are in the results section. documented in this encounter Results Complement total (12/06/2007 10:08 AM SUPERVISOR WOOD ROOM) athologist Signature Complement CH50 142 MISYS Total Comment: Reference range: 60 to 144 Unit: (Note) REFERENCE INTERVAL: Complement Activity, Total EIA 59 Units or less .......... Low 60-144 Units .............. Normal 145 Units or greater ...... High Performed by [employer], [address] [place] [address], [facility] [place] [id number] [email or web address]., ??Kenny Hoffmann MD - Lab. Director Specimen Anatomical Collection Method Collection Time Receive d Time (Source) Location / / Volume Laterality 12/06/2007 10:08 12/06/2007 9:57 AM SUPERVISOR WOOD ROOM AM SUPERVISOR WOOD ROOM Ortiz Shay MD LAB - BLOOD ORDERABLES Performing Organization Address [facility] Phon e Number MISYS Antinuclear antibody screen by EIA (12/06/2007 10:08 AM SUPERVISOR WOOD ROOM) athologist [facility] GABE Screen by 3.3 MISYS EIA Comment: Interpretation: ??Positive GABE screen results > 3 are significant and follow-up testing is recommended. GABE samples are retained in the Protein Lab for 30 days. ??Please contact the laboratory to request additional tests. Specimen Anatomical Collection Method Collection Time Receive d Time (Source) Location / / Volume Laterality 12/06/2007 10:08 12/06/2007 9:57 AM SUPERVISOR WOOD ROOM AM SUPERVISOR WOOD ROOM Ortiz Shay MD LAB - BLOOD ORDERABLES Performing Organization Address City/[facility] Code Phon e Number MISYS T4 free (12/06/2007 10:08 AM SUPERVISOR WOOD ROOM) athologist Signature T4 Free 1.38 0.70 - 1.85 MISYS ng/dL Specimen Anatomical Collection Method Collection Time Receive d Time (Source) Location / / Volume Laterality 12/06/2007 10:08 12/06/2007 9:57 AM SUPERVISOR WOOD ROOM AM SUPERVISOR WOOD ROOM Ortiz Shay MD LAB - BLOOD ORDERABLES Performing Organization Address [facility] Phon e Number MISYS (ABNORMAL) IgE (12/06/2007 10:08 AM SUPERVISOR WOOD ROOM) P athologist Signature IGE 462 (H) 0 - 114 MISYS KIU/L Specimen Anatomical Collection Method Collection Time Receive d Time (Source) Location / / Volume Laterality 12/06/2007 10:08 12/06/2007 9:57 AM SUPERVISOR WOOD ROOM AM SUPERVISOR WOOD ROOM Ortiz Shay MD LAB - BLOOD ORDERABLES Performing Organization Address [facility] Code Phon e Number MISYS T3 total (12/06/2007 10:08 AM SUPERVISOR WOOD ROOM) [facility] gist Method Time Signature Triiodothyronine 121 60 - 181 MISYS (T3) ng/dL Specimen Anatomical Collection Method Collection Time Receive d Time (Source) Location / / Volume Laterality 12/06/2007 10:08 12/06/2007 9:57 AM SUPERVISOR WOOD ROOM AM SUPERVISOR WOOD ROOM Ortiz Shay MD LAB - BLOOD ORDERABLES Performing Organization Address [facility] Phon e Number MISYS (ABNORMAL) Thyroid peroxidase antibody (12/06/2007 10:08 AM SUPERVISOR WOOD ROOM) P athologist Signature Thyroid 74 (H) <35 IU/mL MISYS Peroxidase Antibody Specimen Anatomical Collection Method Collection Time Receive d Time (Source) Location / / Volume Laterality 12/06/2007 10:08 12/06/2007 9:57 AM SUPERVISOR WOOD ROOM AM SUPERVISOR WOOD ROOM Ortiz Shay MD LAB - BLOOD ORDERABLES Performing Organization Address [facility] Phon e Number MISYS Tryptase (12/06/2007 10:08 AM SUPERVISOR WOOD ROOM) P athologist Signature Tryptase 6.3 MISYS Comment: Reference range: 0.4 to 10.9 Unit: ug/L (Note) TEST INFORMATION: Tryptase This test uses a kit designated by the mike aldana as for research use, not for clinical use. The performance characteristics of this test were valida beltran by [employer] The U.S. Food and Kojo g Administration (FDA) has not approved this test. The re sults are not intended to be used as the sole means fo r clinical diagnosis or patient management decision s. [employer] is authorized under Clinical Laboratory Imp rovement Amendments (CLIA) and by all states to p erform high- complexity testing. Performed by [employer], [address], [facility] [place] [facility] [place] [id number] [email or web address]., ??Kenny Hoffmann MD - Lab. Director Specimen Anatomical Collection Method Collection Time Receive d Time (Source) Location / / Volume Laterality 12/06/2007 10:08 12/06/2007 9:57 AM SUPERVISOR WOOD ROOM AM SUPERVISOR WOOD ROOM Ortiz Shay MD LAB - BLOOD ORDERABLES Performing Organization Address City/State/ZIP Code Phon e Number MISYS TSH (12/06/2007 10:08 AM SUPERVISOR WOOD ROOM) athologist Signature TSH 3.18 0.4 - 5.0 MISYS mU/L Specimen Anatomical Collection Method Collection Time Receive d Time (Source) Location / / Volume Laterality 12/06/2007 10:08 12/06/2007 9:57 AM SUPERVISOR WOOD ROOM AM SUPERVISOR WOOD ROOM Ortiz Shay MD LAB - BLOOD ORDERABLES Performing Organization Address City/State/ZIP Code Phon e Number MISYS documented in this encounter Visit Diagnoses Not on filedocumented in this encounter
--- OUTSIDE RECORDS SUMMARY | 2022-09-25 02:50 | XMS_ITS | Encounter Summary ---
:1940 Author Organization [place] Address [address] [facility] 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 S h Periop Services Procedures REPAIR PTOSIS BILATERAL [address] [place] [phone] Phone: Referral ID Status Reason Start Date Expiration Date Visits Requ ested Visits Authorized [id number] Closed 1 1 Encounter Details Date Type Department Care Team Description 11/02/2012 Hospital Encounter [facility] Devyn Ocampo Post -op pain [place] Phase II MD Darren (Primary Dx) [address] OPHTHALMIC [place] [phone] [address] [phone] [place] [address] [place] [address] Social History [...] Comments Blood Pressure 162/86 11/02/2012 11:15 AM PHYSICAL THERAPY ASSISTANT Pulse - - Temperature 36.7 ??C (98.1 ??F) 11/02/2012 8:43 AM PHYSICAL THERAPY ASSISTANT Respiratory Rate 16 11/02/2012 11:15 AM PHYSICAL THERAPY ASSISTANT Oxygen Saturation 97% 11/02/2012 11:15 AM PHYSICAL THERAPY ASSISTANT Inhaled Oxygen Concentration - - Weight 89.8 kg (198 lb) 11/02/2012 8:43 AM PHYSICAL THERAPY ASSISTANT Height 172.7 cm (5' 8) 11/02/2012 8:43 AM PHYSICAL THERAPY ASSISTANT Body Mass Index 30.11 11/02/2012 8:43 AM PHYSICAL THERAPY ASSISTANT documented in this encounter Discharge Instructions Discharge [...] not make important decisions for 24 hours. [facility] Eyelid/Orbital Surgery Discharge Instructions Devyn Ocampo [...] that will not stop with gentle pressure. ICAL THERAPY ASSISTANT documented in this encounter Medications at Time [...] Ocampo MD - 10/29/2012 10:49 AM CST ICAL THERAPY ASSISTANT documented in this encounter OR Notes OR Anesthesia - Devyn Ocampo MD - 11/05/2012 1:14 PM CST ICAL THERAPY ASSISTANT documented in this encounter Miscellaneous Notes Provider Notification - Susi Díaz RN - 11/02/2012 11:19 AM CST Drainage minimal at this time. ICAL THERAPY ASSISTANT Provider Notification - Susi Díaz RN - 11/02/2012 11:[address] Ocampo notified of moderate drainage from right inner canthus, eye pad applied with pressure perDr. Ocampo. ICAL THERAPY ASSISTANT Provider Notification - Ally Diaz RN - 11/02/2012 10:58 AM CST Moist ice dressing ICAL THERAPY ASSISTANT Provider Notification - Ally Diaz RN - 11/02/2012 10:57 AM CST MOderate bloody drainage from right inner canthus, moist ice pack refreshed ICAL THERAPY ASSISTANT Op Note - Devyn Ocampo MD - [...] left the operating room in stable condition. ICAL THERAPY ASSISTANT documented in this encounter Plan of Treatment Not on filedocumented as of this encounter Procedures Procedure Name Priority Date/Time Associated Diagnosis Comme nts REPAIR, PTOSIS, 11/02/2012 9:26 AM PHYSICAL THERAPY ASSISTANT PTOSIS AND [facility] ANICAL BILATERAL PTOSIS OF BILATERAL UPPER LIDS documented in this encounter Visit Diagnoses Diagnosis Post-op pain - Primary Other acute postoperative pain documented in this encounter Administered Medications Inactive Administered Medications - up to 3 most recent administrations Medication Order MAR Action Action Date Dose Rate Site HYDROcodone-acetaminophen 5-325 Given 11/02/2012 11:16 AM PHYSICAL THERAPY ASSISTANT 1 tablet MG per tablet 1 tablet 1 tablet, Oral, EVERY 6 HOURS PRN, moderate to severe pain, Starting on Thu11/02/12 at 1115, PACU documented in this encounter Active and Recently Administered Medications Times are shown in PHYSICAL THERAPY ASSISTANT. PRN Medication Order 10/31/2012 11/01/2012 11/02/2012 erythromycin [...] Intra-procedure documented in this encounter Care Teams English Composition Teacher Relationship Specialty Start Date End Date Carlos Alberto Corral MD PCP - General Internal Medicine 10/15/12 09/18/[address] [address] documented as of this encounter
--- OUTSIDE RECORDS SUMMARY | 2022-09-25 02:50 | XMS_ITS | Encounter Summary ---
:1940 Author Organization [place] Address [address] [place] [address] Care Team Providers Name Role Phone Unavailable Primary Care Provider Unavailable Encounter Details Date Type Department Care Team Description 12/08/2007 Historic Results Allergy and Asthma Ortiz hSay Phillips-Wangensteen MD Building XXX RESIGNED XXX 2nd Floor, Clinic 2A [address] [place] [address] [facility] [address] [place] [address] [phone] Social History Tobacco Use Types Packs/Day Years Used Date Smoking Tobacco: Never Assessed Sex Assigned at Date Recorded Not on file documented as of this encounter Plan of Treatment Not on filedocumented as of this encounter Procedures Procedure Name Priority Date/Time Associated Diagnosis Comme nts HISTAMINE URINE Routine 12/08/2007 7:45 AM Result s for this CUSTOMER FIELD REPRESENTATIVE procedure are i n the results section. documented in this encounter Results Histamine urine (12/08/2007 7:45 AM CUSTOMER FIELD REPRESENTATIVE) athologist Signature Histamine 55 MISYS Urine/Volume Comment: Unit: nmol/L Histamine Urine/G Creatinine 54 M ISYS Comment: Reference range: 0 to 386 Unit: nmol/g (Note) TEST INFORMATION: ??Histamine, Urine nmo l/g creat This test uses a kit designated by the mike aldana as for research use, not for clinical use. The performance characteristics of this test were valida beltran by [employer] The U.S. Food and Kojo g [...] MISYS Comment: Unit: mg/dL (Note) Performed by [employer], [address], [facility] [place] [address] [email or web address], ??Kenny Hoffmann MD - Lab. Director Specimen Anatomical Collection Method Collection Time Receive d Time (Source) Location / / Volume Laterality 12/08/2007 7:45 AM 8 CUSTOMER FIELD REPRESENTATIVE 12:03 PM CUSTOMER FIELD REPRESENTATIVE Ortiz Shay MD LAB - URINE ORDERABLES Performing Organization Address City/State/ZIP Code Phon e Number MISYS documented in this encounter Visit Diagnoses Not on filedocumented in this encounter
--- OUTSIDE RECORDS SUMMARY | 2022-09-25 02:50 | XMS_ITS | Encounter Summary ---
:1940 Author Organization [place] Address [address] [place] [address] Care Team Providers Name Role Phone Carlos Alberto Corral MD Primary Care Provider Encounter Details Date Type Department Care Team Description 11/22/2002 Historic Results [facility] Heart Unknown, [address] [place] [address] Social History Tobacco Use Types Packs/Day Years Used Date Smoking Tobacco: Never Assessed Sex Assigned at Date Recorded Not on file documented as of this encounter Plan of Treatment Not on filedocumented as of this encounter Procedures Procedure Name Priority Date/Time Associated Diagnosis Comme nts ECHO CARDIAC - HIM SCAN 11/22/2002 12:00 AM AUTOMOBILE DRIVERS - ARCHIVE documented in this encounter Results ECHO CARDIAC - HIM SCAN - ARCHIVE (11/22/2002 12:00 AM AUTOMOBILE DRIVERS) Anatomical Region Laterality Modality Echocardiography Specimen (Source) Anatomical Location Collection Method / Collectio n Time Received Time / Laterality Volume 11/22/2002 Narrative This result has an attachment that is no t available. Provider Scan CV ECHO ORDERABLES documented in this encounter Visit Diagnoses Not on filedocumented in this encounter Care Teams Tire Mechanic Relationship Specialty Start Date End Date Carlos Alberto Corral MD PCP - General Internal Medicine 10/15/12 09/18/[address] [address] documented as of this encounter
--- OUTSIDE RECORDS SUMMARY | 2022-09-25 02:50 | XMS_ITS | Encounter Summary ---
:1940 Author Organization [place] Address [facility] [place] [address] Care Team Providers Name Role Phone Unavailable Primary Care Provider Unavailable Encounter Details Date Type Department Care Team Description 02/16/2008 Office Visit-[facility] Allergy and Asthma Ortiz Shay Phillips-Wangensteen MD Building XXX RESIGNED XXX 2nd Floor, Clinic 2A [address] [place] [address] [facility] [address] [place] [address] [phone] Social History Tobacco Use Types Packs/Day Years Used Date Smoking Tobacco: Never Assessed Sex Assigned at Date Recorded Not on file documented as of this encounter Progress Notes Ortiz Shay - 02/16/2008 12:45 PM CDT Vibrator Equipment Tester: Ortiz Shay Status: Final - Signature Encounter: [...] was allergic as a child [facility] told [facility] to avoid salicylates based on a lab test that was done on him in the s Social History with three grown children, retired from [employer] business. Family History Father had hay fever [...] signed by:Oscar Kelly Feb 16 2008 1:54PM GENERAL PRACTICE Electronically signed by:Sanju Shay M.D. Feb 16 2008 5:48PM GENERAL PRACTICE documented in this encounter Plan of Treatment Not on filedocumented as of this encounter Visit Diagnoses Not on filedocumented in this encounter
--- OUTSIDE RECORDS SUMMARY | 2022-09-25 02:50 | XMS_ITS | Encounter Summary ---
:1940 Author Organization [place] Address [address] [place] [address] Care Team Providers Name Role Phone Unavailable Primary Care Provider Unavailable Encounter Details Date Type Department Care Team Description 01/03/2010 Historic Results INTERFACED REPORT Manuel Silvestre MD EMERGENCY PHYSIC [place] [id number] [place], [place] [address] (Wo rk) Social History Tobacco Use Types Packs/Day Years Used Date Smoking Tobacco: Never Assessed Sex Assigned at Date Recorded Not on file documented as of this encounter Plan of Treatment Not on filedocumented as of this encounter Procedures Procedure Name Priority Date/Time Associated Diagnosis Comme [facility] EKG 12 LEAD Routine 01/03/2010 8:55 AM Results f or this PSYCHOLOGIST CHIEF procedure are i n the results section . documented in this encounter Results EKG 12 LEAD (01/03/2010 8:55 AM PSYCHOLOGIST CHIEF) [facility] Method Time Signature Ventricular Rate 98 BPM RADIOLOGY RESULTS Atrial Rate 98 BPM RADIOLOGY RESULTS LA Interval 188 ms RADIOLOGY RESULTS QRS Duration 100 ms RADIOLOGY RESULTS QT 332 ms RADIOLOGY RESULTS QTc 423 ms RADIOLOGY RESULTS R AXIS 7 degrees RADIOLOGY RESULTS T [place] 28 degrees RADIOLOGY RESULTS Interpretation Sinus rhythm [...] Volume Laterality 01/03/2010 8:55 AM 0 9:19 PSYCHOLOGIST CHIEF AM PSYCHOLOGIST CHIEF Ciro Silvestre MD ECG ORDERABLES Performing Organization Address City/State/ZIP Code Phon e Number RADIOLOGY RESULTS documented in this encounter Visit Diagnoses Not on filedocumented in this encounter
--- OUTSIDE RECORDS SUMMARY | 2022-09-25 02:50 | XMS_ITS | Encounter Summary ---
:1940 Author Organization [place] Address [address] [place] [address] Care Team Providers Name Role Phone Unavailable Primary Care Provider Unavailable Encounter Details Date Type Department Care Team Description 01/03/2010 Results Only [facility] Konrad, Se yarelis Wilhelm MD [facility] EMERGENCY [place]AD[place] Results [address] [place], [place] [address] (Wo rk) Social History Tobacco Use Types Packs/Day Years Used Date Smoking Tobacco: Never Assessed Sex Assigned at Date Recorded Not on file documented as of this encounter Plan of Treatment Not on filedocumented as of this encounter Procedures Procedure Name Priority Date/Time Associated Diagnosis Comme nts CHEST TWO VIEWS, Routine 01/03/2010 9:31 AM Re sults for this FRONT/LAT NAPPER FIXER procedure are i n the results section. documented in this encounter Results CHEST X-RAY 2 VW (01/03/2010 9:31 AM NAPPER FIXER) Anatomical Region Laterality Modality Other Specimen (Source) Anatomical Collection Method Collection Time Re ceived Time Location / / Volume Laterality 01/03/2010 9:31 AM NAPPER FIXER Impressions 01/07/2010 2:51 AM CDT CHEST TWO VIEW January 03, 2010 9:31:00 AM HISTORY: Chest pain. COMPARISON: None. FINDINGS: No evidence for acute disease. Ciro Silvestre MD GENERAL IMAGING documented in this encounter Visit Diagnoses Not on filedocumented in this encounter
--- OUTSIDE RECORDS SUMMARY | 2022-09-25 02:50 | XMS_ITS | Encounter Summary ---
:1940 Author Organization [place] Address [address] [place] [address] Care Team Providers Name Role Phone Unavailable Primary Care Provider Unavailable Encounter Details Date Type Department Care Team Description 12/06/2007 Office Visit-[facility] Allergy and Asthma Ortiz Shay [place] Building XXX RESIGNED XXX 2nd Floor, Clinic 2A [address] [facility] [address] [id number] [phone] Social History Tobacco Use Types Packs/Day Years Used Date Smoking Tobacco: Never Assessed Sex Assigned at Date Recorded Not on file documented as of this encounter Progress Notes Ortiz Shay - 12/06/2007 8:50 AM CST Audio Visual Coordinator: Ortiz Shay Status: Final - Signature Encounter: 06 Dec 2007 Type: Allergy Chart Note Pulmonary, Allergy and Critical Care Department of Medicine [place] Mail Code [address] [place] [address] Office: [phone] Allergy and Asthma Clinic [facility] Fifth Floor, Clinic [address]A [address] [place] [address] RE: Abraham Mancuso : 1940 ELVIRA: 12/06/2007 [...] by primary care doctor. Ortiz Shay M.D. air pollution engineer Director, Asthma & Allergy Program MB:laurie Electronically signed by:Sanju Shay M.D. Dec 22 2007 5:28PM CUSTOMER CONTACT REPRESENTATIVE OMER CONTACT REPRESENTATIVE documented in this encounter Plan of Treatment Not on filedocumented as of this encounter Visit Diagnoses Not on filedocumented in this encounter
--- OUTSIDE RECORDS SUMMARY | 2022-09-25 02:50 | XMS_ITS | Encounter Summary ---
:1940 Author Organization [place] Address [address] [place] [address] Care Team Providers Name Role Phone Unavailable Primary Care Provider Unavailable Encounter Details Date Type Department Care Team Description 01/03/2008 Office Visit-[facility] Allergy [facility] Asthma Unknown, [facility] Clinic [address] [place] [phone] Social History Tobacco Use Types Packs/Day Years Used Date Smoking Tobacco: Never Assessed Sex Assigned at Date Recorded Not on file documented as of this encounter Progress Notes Unknown, Provider - 01/03/2008 11:20 AM CDT Doctor Of Medicine: Maria Ines Bowens Status: Amended, Unsigned Encounter: 03 Jan 2008 Type: Allergy Nurse Note Reason For Visit Follow up Test results. 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 Allergies Aspirin TABS Other Penicillins Sulfa Drugs Amended By: Maria Ines Bowens ; 01/03/2008 11:22 AM PURCHASING MANAGER. Current Meds The medications listed below were [...] 0. Signature Signed By: Maria Ines Bowens [facility]; 01/03/2008 11:22 AM PURCHASING MANAGER. documented in this encounter Plan of Treatment Not on filedocumented as of this encounter Visit Diagnoses Not on filedocumented in this encounter
--- OUTSIDE RECORDS SUMMARY | 2022-09-25 02:50 | XMS_ITS | Encounter Summary ---
:1940 Author Organization [place] Address [address] [place] [address] Care Team Providers Name Role Phone Unavailable Primary Care Provider Unavailable Encounter Details Date Type Department Care Team Description 02/16/2008 Office Visit-[facility] Allergy [facility] Asthma Unknown, [facility] 2[facility], Clinic [address] [place] [phone] Social History Tobacco Use Types Packs/Day Years Used Date Smoking Tobacco: Never Assessed Sex Assigned at Date Recorded Not on file documented as of this encounter Progress Notes Unknown, Provider - 02/16/2008 12:45 PM CDT Regrader: Cee Mccann Status: Final Encounter: 16 Feb 2008 Type: Allergy Nurse Note Reason For Visit REBEKAH XIONG is a 67 year old male present today for urticaria and angioedema follow up. Do you have any other appointments of any type today within the [facility] system? (this includes clinic appt's, Imaging, labs, [...] By: Daylin Mccann RN; 02/16/2008 12:17 PM PRIMER SUPERVISOR. documented in this encounter Plan of Treatment Not on filedocumented as of this encounter Visit Diagnoses Not on filedocumented in this encounter
--- OUTSIDE RECORDS SUMMARY | 2022-09-25 02:50 | XMS_ITS | Encounter Summary ---
:1940 Author Organization [place] Address [address] [facility] 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 OBJECTIVE: The patient is alert and [...] MD MT: britni Name: REBEKAH XIONG Account: [id number] : 1940 Visit Date: 02/16/2008 Document: [id number] cc: Ko Aguirre MD documented in this encounter Plan of Treatment Not on filedocumented as of this encounter Visit Diagnoses Not on filedocumented in this encounter
--- OUTSIDE RECORDS SUMMARY | 2022-09-25 02:50 | XMS_ITS | Encounter Summary ---
:1940 Author Organization [place] Address [address] [place] [address] Care Team Providers Name Role Phone Unavailable Primary Care Provider Unavailable Encounter Details Date Type Department Care Team Description 03/06/2005 Historic Results [facility] Irina Mandel, Radiation Oncology [place] [address] [address] [place] [address] Social History Tobacco Use Types Packs/Day [...]
--- OUTSIDE RECORDS SUMMARY | 2022-09-25 02:50 | XMS_ITS | Encounter Summary ---
:1940 Author Organization [place] Address [facility] [place] [address] Care Team Providers Name Role Phone Unavailable Primary Care Provider Unavailable Reason for Visit Reason Onset Date Comments Sinus Problem 10/23/2011 Encounter Details Date Type Department Care Team Description 10/23/2011 Telephone Consultants-Internal Medicine Bobbi Corral RN Sinus Problem [address] [facility] [address] [place] [address] Social History Tobacco Use Types Packs/Day Years Used Date Smoking Tobacco: Never Assessed Sex Assigned at Date Recorded Not on file documented as of this encounter Miscellaneous Notes Telephone Encounter - Jcarlos Diaz - 10/23/2011 3:52 PM CST PATIENT CALLED SAYING HE HAS SEMI-ANNUAL SINUS INFECTION ALONG WITH HEAVY HEAD COLD. ASKING FOR RX FOR Z-KATE AT [facility]. 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
--- OUTSIDE RECORDS SUMMARY | 2022-09-25 02:50 | XMS_ITS | Encounter Summary ---
:1940 Author Organization [place] Address [address] [place] [address] Care Team Providers Name Role Phone Unavailable Primary Care Provider Unavailable Encounter Details Date Type Department Care Team Description 01/03/2010 Historic Results INTERFACED REPORT Manuel Silvestre MD EMERGENCY PHYSIC [facility] [address] [place], [place] [phone] (Wo rk) Social History Tobacco Use Types Packs/Day Years Used Date Smoking Tobacco: Never Assessed Sex Assigned at Date Recorded Not on file documented as of this encounter Plan of Treatment Not on filedocumented as of this encounter Procedures Procedure Name Priority Date/Time Associated Diagnosis Comme nts EKG 12 LEAD Routine 01/03/2010 8:49 AM Results f or this HEARING AID SPECIALIST procedure are i n the results section . documented in this encounter Results EKG 12 LEAD (01/03/2010 8:49 AM HEARING AID SPECIALIST) Component Value Ref Range Test Analysis Performed Pathologis t Method Time At Signature Ventricular Rate 165 BPM RADIOLOGY RESULTS Atrial Rate 166 BPM RADIOLOGY RESULTS QRS Duration 92 ms RADIOLOGY RESULTS QT 282 ms RADIOLOGY RESULTS QTc 467 ms RADIOLOGY RESULTS R AXIS 16 degrees RADIOLOGY RESULTS T [place] 12 degrees RADIOLOGY RESULTS Interpretation Supraventricular tachycardia RADIOLOGY ECG Incomplete right bundle branch block RESULTS Nonspecific ST abnormality Abnormal ECG No previous ECGs available Specimen Anatomical Collection Method Collection Time Receive d Time (Source) Location / / Volume Laterality 01/03/2010 8:49 AM 0 8:59 HEARING AID SPECIALIST AM HEARING AID SPECIALIST Ciro Silvestre MD ECG ORDERABLES Performing Organization Address City/State/ZIP Code Phon e Number RADIOLOGY RESULTS documented in this encounter Visit Diagnoses Not on filedocumented in this encounter
--- OUTSIDE RECORDS SUMMARY | 2022-09-25 02:50 | XMS_ITS | Encounter Summary ---
:1940 Author Organization [place] Address [address] [place] [address] Care Team Providers Name Role Phone Unavailable Primary Care Provider Unavailable Encounter Details Date Type Department Care Team Description 03/30/2006 [facility] [place] [address] [address] [place] [address] Social History Tobacco Use Types Packs/Day [...]
--- OUTSIDE RECORDS SUMMARY | 2022-09-25 02:50 | XMS_ITS | Encounter Summary ---
:1940 Author Organization [place] Address [facility] [place] [address] Care Team Providers Name Role Phone Unavailable Primary Care Provider Unavailable Encounter Details Date Type Department Care Team Description 12/05/2004 Historic Bad [facility] Collect[facility] Radiation [address] [facility] Oncology [facility] [address] [phone] Center, 1st Floor (Work) [place] [address] Social History Tobacco Use Types Packs/Day Years Used Date Smoking Tobacco: Never Assessed Sex Assigned at Date Recorded Not on file documented as of this encounter Progress Notes Vandana Duarte MD - 10/01/2011 4:36 AM 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 ERON LOVING MD Micro Computer Specialist Radiation Oncology Date: Dictated by: VANDANA DUARTE MD MT: ashlee R/12/23/04/ Document: [id number] CC: MD ERON JACK MD JOHN C HULBERT, MD MALCOLM N BLUMENTHAL, MD LCN: ELLIOTT DSC: 12/05/2004 [place], [place] Name: MR#: : ELVIRA: REBEKAH XIONG [id number] 1940 12/05/2004 THERAPEUTIC RADIOLOGY PROGRESS/FOLLOW UP NOTE Page 2 of 2 LE MECHANIC documented in this encounter Plan of Treatment Not on filedocumented as of this encounter Visit Diagnoses Not on filedocumented in this encounter
--- OUTSIDE RECORDS SUMMARY | 2022-09-25 02:50 | XMS_ITS | Encounter Summary ---
:1940 Author Organization [place] Address [address] [place] [address] Care Team Providers Name Role Phone Unavailable Primary Care Provider Unavailable Reason for Visit Reason Comments Refill Request Encounter Details Date Type Department Care Team Description 04/21/2012 Refill Consultants-Internal Jessie Corral MD Refill Request Medicine [address] [address] [place] [address] [phone] (Wo rk) Social History Tobacco Use Types Packs/Day Years Used Date Smoking Tobacco: Never Assessed Sex Assigned at Date Recorded Not on file documented as of this encounter Plan of Treatment Not on filedocumented as of this encounter Visit Diagnoses Diagnosis Pure hypercholesterolemia documented in this encounter
--- OUTSIDE RECORDS SUMMARY | 2022-09-25 02:50 | XMS_ITS | Encounter Summary ---
:1940 Author Organization [place] Address [address] [place] [address] Care Team Providers Name Role Phone Unavailable Primary Care Provider Unavailable Encounter Details Date Type Department Care Team Description 01/01/2011 Office Visit-[facility] Patricia Mandel MD [address] [place], [place] [phone] Social History Tobacco Use Types Packs/Day Years Used Date Smoking Tobacco: Never Assessed Sex Assigned at Date Recorded Not on file documented as of this encounter Progress Notes Ministerio Eron E - 01/01/2011 9:00 AM CST Pie Baker: Romeoearlrose maryEron vazquez Status: Final - Signature Encounter: 01 Jan 2011 Type: Ther Rad Visit FINAL PROBLEM: Adenocarcinoma of prostate, original [place] score 3+3=6, PSA of 0.8, T stage [...] PSA is 0.21. in October at his [facility] ASSESSMENT AND PLAN: Mr. Mancuso is now [...] with us today. ERON MANDEL MD Document: [id number] cc: Ko Aguirre MD and Carlos Alberto Corral Electronically signed by:Eron Mandel M.D. Jan 01 2011 9:52AM WILLOWER OWER documented in this encounter Plan of Treatment Not on filedocumented as of this encounter Visit Diagnoses Not on filedocumented in this encounter
--- OUTSIDE RECORDS SUMMARY | 2022-09-25 02:51 | XMS_ITS | Clinical Summary ---
:1940 Author Organization [facility] [place] [address] Care Team Providers Name Role Phone Ocsar Arevalo MD Primary Care Provider [phone] Allergies Active Allergy Reactions Severity Noted Date Comments Aspirin *Unknown 08/18/2012 From scanned document Diatrizoate Meglumine (Iv Hives 11/02/2012 To lerated PE study Contrast Dye) 08/03/2022 with benadryl pre-medication. Iodine Hives 04/09/2015 Lisinopril *Unknown 08/18/2012 From scanned document. Ask patient if med has side effect (i. e. Cough) as oppos ed to allergic reacti on please. Penicillins *Unknown 08/18/2012 From scanned document Feura Bush Hives 07/07/2017 Sulfa (Sulfonamide *Unknown 08/18/2012 From [...] (Specify). fluticasone (50 mcg per Inhale 1 [place] 0 Active actuation) nasal into both solution [...] reflux MEAL disease, unspecified whether esophagitis present finasteride (PROSCAR) 5 Take 1 Tablet (5 [...] with Paroxysmal atrial evening meal. fibrillation (HC) atorvastatin (LIPITOR) Take 1 Tablet 90 Tablet 0 09/15/2 Active 40 mg (40 mg) by mouth 022 tabletIndications: Pure at bedtime. hypercholesterolemia Additional refills at upcoming visit. sotaloL (BETAPACE) 120 Take 1 Tablet 180 Tablet 0 09/19/2 Active mg tabletIndications: (120 mg) by 022 Chronic atrial mouth two times fibrillation (HC) daily before meals. Schedule with cardiology for additional refills. sotaloL (BETAPACE) 120 TAKE 1 TABLET BY 180 Tablet 0 09/19/2 Active mg tabletIndications: MOUTH EVERY 022 Chronic atrial MORNING AND fibrillation (HC) EVERY EVENING BEFORE MEALS atorvastatin (LIPITOR) Take 1 Tablet 90 Tablet 0 Discontinued 40 mg (40 mg) by mouth 2021 tabletIndications: Pure once daily in hypercholesterolemia the evening. Schedule with cardiology for additional refills. sotaloL (BETAPACE) 120 Take 1 Tablet 180 Tablet 0 / Discontinued mg tabletIndications: (120 mg) by 2021 (Reorder Chronic atrial mouth in the (E -cancel not fibrillation (HC) morning and 1 sent)) Tablet (120 mg) in the evening. Take before meals. Schedule with cardiology for additional refills.. sotaloL (BETAPACE) 120 TAKE 1 TABLET BY 180 Tablet 0 09/19/ Discontinued mg tabletIndications: MOUTH EVERY 2021 Chronic atrial MORNING AND 1 fibrillation (HC) TABLET EVERY EVENING BEFORE MEALS sotaloL (BETAPACE) 120 TAKE 1 TABLET BY 180 Tablet 0 09/19/ Discontinued mg tabletIndications: MOUTH EVERY 2021 Chronic atrial MORNING AND fibrillation (HC) EVERY EVENING BEFORE MEALS Active Problems Problem Noted Date Vasovagal syncope [...] Encounters Date Type Specialty Care Team Description 09/19/2022 Refill Oscar Miner MD Refill Request (Sotalol) 09/19/2022 Refill Oscar Miner MD Refill Request (Sotalol) 09/19/2022 Refill Oscar Miner MD Refill Request (Sotalol) 09/19/2022 Refill Oscar Miner MD Refill Request 09/19/2022 Refill Oscar Miner MD duplica te 09/19/2022 Telephone Oscar Miner MD Medicat ion Management 09/19/2022 Refill Oscar Miner MD Refill Request (Finasteride, Sotalol) 09/12/2022 Refill Oscar Miner MD Refill Request (Finasteride, Atorvastatin) 08/18/2022 Orders Only <No scans attac hed> 08/03/2022 Emergency Dewey Cueva, DO SOB (shortness of breath) (Primary Dx); History of card iac pacemaker; Dizziness 08/01/2022 Orders Only <No scans attac hed> 08/01/2022 Travel 07/25/2022 Refill Oscar Miner MD Refill Request (Xarelto) 07/20/2022 Refill VinodSabino toscano, Ref ill Request (Fluoxetine) 06/26/2022 Refill Sabino Brock, Ref ill Request (Fluoxetine) from Last 3 Months Immunizations Name Administration Dates Next Due Influenza, High-dose Inactivated 07/30/2016, 07/24/2015 Influenza, High-dose Quadrivalent 07/20/2020 Inactivated Influenza, IIV3 (Age >=3 years) 08/30/2017, 08/27/2014, 12/2012, 07/24/2012 Influenza, Inactivated IIV3 (Age 65+ 07/04/2019, [...] Visit Oscar Miner MD [address] [id number] [place] [address] (Wo rk) Health Maintenance Due Date Last Done Comments Pneumococcal series for age 65+ (2 08/09/2011 08/09/2010 - PCV) Medicare Wellness for age 65+ 04/08/2016 04/09/2015, 2011 Depression screening for age 12+ 08/06/2021 08/06/2020, 09/2020, 06/02/2019, Additional history exists COVID-19 vaccine series (4 - 10/25/2021 08/30/2021, 01/08/ 021, Booster for Pfizer series) 12/12/2020 BMI (ht and wt on same day) for 05/14/2022 05/14/2021, 03/26, age 18+ 09/28/2019, Additional history exists Influenza for age 65+ 06/26/2022 07/20/2020, 07/04/2019, 08/26/2018, Additional history exists Tetanus booster 10/12/2022 10/12/2012 Tdap Completed 10/12/2012 Zoster (shingles) series for age Completed 08/23/2019, , 50+ 10/01/2010 Procedures Procedure Name Priority Date/Time Associated Comments Diagnosis ECHO COMPLETE WO Routine 08/18/2022 5:11 PM History of cardiac Results for this CONTRAST CDT pacemaker procedure are i n the results section. TROPONIN I Timed 08/03/2022 2:51 PM Results [...] results section. from Last 3 Months Results ECHO COMPLETE WO CONTRAST (08/18/2022 5:11 PM CDT) P athologist Signature AORTIC VALVE 7 mmHg MEAN PG EJECTION 60 % FRACTION PEAK TR 2.4 m/s VELOCITY LVEDD 5.1 cm EJECTION 55 - 60% FRACTION Anatomical Region Laterality Modality HEART Ultrasound Specimen (Source) Anatomical Collection Method Collection Time Re ceived Time Location / / Volume Laterality 08/18/2022 4:39 PM CDT Narrative 08/18/2022 8:43 PM CDT ECHOCARDIOGRAM ABRAHAM Nasir XIONG ?Accessio n#: ?? [id number] : ?1940 82 years Study Date: ?? 08/18/2022 4:39:21 PM Gender: M ? BP: ? 149/80 mmHg Height: 173.00 cm ? BSA: ?2.08 m? ?? Weight: 94.00 kg ?Tech: ? MJS ?Danica ortiz MD: NATALEE JORGENSEN Site: ? [facility] Reading Location: [place] Procedure: 2D, Color Doppler and Spectra l Doppler. Indication for study: PACEMAKER Cardiac Rhythm: Regular.Study quality: G ood. Final Impressions: 1. LVEF estimate 55-60%. Normal LV size and wall thickness. 2. Normal RV size and global systolic f unction. Device leads in the right heart. 3. Mild mitral regurgitation. 4. Mild aortic regurgitation. 5. Moderately enlarged left atrium. 6. Normal PA systolic and RA pressure e stimates. 7. Mildly dilated aortic root [4.3 cm]. Chamber Sizes and Function Left atrial size is moderately enlarged. Right ventricular cavity size is normal, global systolic RV function is normal. Pacing wire/catheter visualized in the right ventricle. The right atrium is mildl y enlarged. Right atrial volume index is 26 ml/m? ??. Right atrial area is 20 cm? ??. The pulmonary artery is of normal size and origin. The sinus of Valsalva is dilated. The ascending aorta is normal sized. Valves, RV Pressures and Diastolic Funct ion The aortic valve is not well visualized and sclerotic, no stenosis and mild regurgitation. The mitral valve is normal in structure, mild mitral regurgitation. Indeterminate pattern of LV diastolic filli ng. The tricuspid valve is normal in str ucture. Tricuspid regurgitation is trace regurgitation. The tricuspid regurgitant velocity is 2.4 m/s, the estimated right ventricular systolic pressure is 22 mmH g plus right atrial pressure. There is n ormal estimated pulmonary pressure by tricuspid regurgitation velocity and right atrial pressure. The pulmonic valve is not well visualized. Trace pulmonary regur gitation. TTE images do not appear adequ ate for transcather intervention with patient supine. Masses, Effusion, Shunts There is no pericardial effusion. The in ferior vena cava is normal sized, respiratory size variation greater than 50%. No left to right shunting was detected by limited color flow Doppler interrogation of the interatrial septum. MEASUREMENTS AND CALCULATIONS 2-D Measurements and LV Function: LVID (d) 5.1 cm LV FS% (2D) ?? 24 % LVID (s) 3.9 cm LVOT diameter 2.4 cm IVS (d) ??1.1 cm HR ?79 bpm LVPW (d) 1.2 cm LA Vol index ??60 ml/m2 Ao Sinus 4.3 cm RA Vol index ??26 ml/m2 Asc Ao ?? 3.6 cm RA area ? 20 cm? ?? LA ? 5.4 cm Diastology: Mitral ?Tissue Doppler E Peak 0.9 m/s ??e', Septum ? 0.09 m /s A Peak 0.4 m/s ??e', Lateral ?0.10 m /s E/A ?2.1 ?E/e' Average ?? 9.3 7 DT ? 157 msec IVRT ?? 90 msec Aortic Valve: Vmax ? 1.7 m/s ??LÁZARO (V) ?? 2.47 cm? ?? VTI ?0.43 m ?? LÁZARO (I) ?? 2.23 cm? ?? LVOT V max 0.9 m/s ??Max PG ?12 mmHg LVOT VTI ?? 0.21 m ?? Mean PG ?? 7 mmHg SV ? 97 ml ?Dim Index 0.48 SV index ?? 46 ml/m? ?? CO ?7.6 l/min ?CI ?3.7 l/min/m? ?? Mitral Valve: MVA ?4.8 cm? ?? MV P 1/2 46 msec Tricuspid Valve and estimated PA pressur es: TR Vmax 2.4 m/s TAPSE 2.9 cm TR maxG 22 mmHg . Report modified by Kong Azar MD on 08/18/2022 8:44:26 PM. This study was interpreted by an [facility] redited facility. CC: [facility], Med/ Surg - IP [facility]. ??Final (Updated) ?? Procedure Note Kong Azar MD - 08/18/20 22 ECHOCARDIOGRAM ABRAHAM XIONG : 1940 82 years Study Date: 08/18 4:39:21 PM Gender: M BP: 149/80 mmHg Height: 173.00 cm BSA: 2.08 m? ?? Weight: 94.00 kg Tech: ALFREDO Referring MD: NATALEE JORGENSEN Site: [facility] Reading Location: [place] Procedure: 2D, Color Doppler and Spectra l Doppler. Indication for study: PACEMAKER Cardiac Rhythm: Regular.Study quality: G ood. Final Impressions: 1. LVEF estimate 55-60%. Normal LV size and wall thickness. 2. Normal RV size and global systolic f unction. Device leads in the right heart. 3. Mild mitral regurgitation. 4. Mild aortic regurgitation. 5. Moderately enlarged left atrium. 6. Normal PA systolic and RA pressure e stimates. 7. Mildly dilated aortic root [4.3 cm]. Chamber Sizes and Function Left atrial size is moderately enlarged. Right ventricular cavity size is normal, global systolic RV function is normal. Pacing wire/catheter visualized in the right ventricle. The right atrium is mildly enlarged. Right atrial volume index is 26 ml/m? ??. Right atrial area is 20 cm? ??. The pulmonary artery is of normal size and origin. The sinus of Valsalva is dilated. The ascending aorta is normal sized. Valves, RV Pressures and Diastolic Funct ion The aortic valve is not well visualized and sclerotic, no stenosis and mild regurgitation. The mitral valve is normal in structure, mild mitral regurgitation. Indeterminate pattern of LV diastolic filling. The tricuspid valve is normal in structure. Tricuspid regurgitation is trace regurgitation. The tricuspid regurgitant velocity is 2.4 m/s, the estimated right ventricular systolic pressure is 22 mmHg plus right atrial pressure. There is normal estimated pulm onary pressure by tricuspid regurgitation velocity and right atrial pressure. The pulmonic valve is not well visualized. Trace pulmonary regurgitation. TTE images do not appear adequate for transcather interven tion with patient supine. Masses, Effusion, Shunts There is no pericardial effusion. The in ferior vena cava is normal sized, respiratory size variation greater than 50%. No left to right shunting was detected by limited color flow Doppler interrogation of the interatrial septum. MEASUREMENTS AND CALCULATIONS 2-D Measurements and LV Function: LVID (d) 5.1 cm LV FS% (2D) 24 % LVID (s) 3.9 cm LVOT diameter 2.4 cm IVS (d) 1.1 cm HR 79 bpm LVPW (d) 1.2 cm LA Vol index 60 ml/m2 Ao Sinus 4.3 cm RA Vol index 26 ml/m2 Asc Ao 3.6 cm RA area 20 cm? ?? LA 5.4 cm Diastology: Mitral Tissue Doppler E Peak 0.9 m/s e', Septum 0.09 m/s A Peak 0.4 m/s e', Lateral 0.10 m/s E/A 2.1 E/e' Average 9.37 DT 157 msec IVRT 90 msec Aortic Valve: Vmax 1.7 m/s LÁZARO (V) 2.47 cm? ?? VTI 0.43 m LÁZARO (I) 2.23 cm? ?? LVOT V max 0.9 m/s Max PG 12 mmHg LVOT VTI 0.21 m Mean PG 7 mmHg SV 97 ml Dim Index 0.48 SV index 46 ml/m? ?? CO 7.6 l/min CI 3.7 l/min/m? ?? Mitral Valve: MVA 4.8 cm? ?? MV P 1/2 46 msec Tricuspid Valve and estimated PA pressur es: TR Vmax 2.4 m/s TAPSE 2.9 cm TR maxG 22 mmHg . Report modified by Kong Azar MD on 08/18/2022 8:44:26 PM. This study was interpreted by an [facility] redited facility. CC: [facility], Med/ Surg - IP [facility]. Final (Updated) Natalee Jorgensen MD ECHO ORD (ABNORMAL) TROPONIN I (08/03/2022 2:51 PM CDT)Only the most recent of2 results within the time period is included. P athologist Signature TROPONIN I 1.074 (H) <0.034 08/03/2022 [place] ng/mL 3:23 PM CDT [facility] Specimen Anatomical Collection Method / Collection Time Recei charan Time (Source) Location / Volume Laterality Blood BLOOD SPECIMEN / Venipuncture / 08/03/2022 2:51 2021 2:54 Unknown Unknown PM CDT PM CDT Dewey Cueva DO CHEMISTRY Performing Organization Address City/State/ZIP Code Phon e Number [facility] [address] [place] [address] CT CHEST PE STUDY (08/03/2022 1:20 PM [...] note that [facility] use dose modulation, iterative reconstruction, and/or weight-based dosing when appropriate to reduce radiation dose to as low as reasonably achievable. Dictated by Oscar Michel MD @ 2:04:45 PM (Electronically Signed) Narrative 08/03/2022 2:04 PM CDT For Patients: ??As a result of the Cures Act, medical imaging exams and procedure report s are released immediately into your [facility] medical record. ??You may view this report [...] provider. If you have questions, please contact [facility] health care provider. INDICATION: Positive D-dimer. Dizziness. [...] note that all CT scans at this [facility] use dose modulation, iterative reconstruction, and/or weight-based dosing when appropriate to reduce radiation dose to as low as reasonably achievable. Dictated by Oscar Michel MD @ 2 2:04:45 PM (Electronically Signed) Dewey Samaniegoearl Bradshawantonioclem DO CT XR CHEST 1 VIEW PORTABLE [...] report s are released immediately [facility]. ??You may view this report [...] provider. If you have questions, please contact [facility] care provider. Indication: Dizziness Comparison: Single view [...] CBC WITH AUTO DIFFERENTIAL (08/03/2022 11:29 AM T) [facility] Method Time Signature WHITE BLOOD 8.1 4.5 - 08/03/2022 [place] COUNT 11.0 11:37 AM [facility] thou/cu LABORATORY mm RED BLOOD COUNT 4.42 4.30 - 08/03/2022 [place] 5.90 11:37 AM [facility] mil/cu mm LABORATORY HEMOGLOBIN 13.3 (L) 13.5 - 08/03/2022 [place] 17.5 g/dL 11:37 AM [facility] LABORATORY HEMATOCRIT 40.7 37.0 - 08/03/2022 [place] 53.0 % 11:37 AM [facility] LABORATORY MCV 92 80 - 100 08/03/2022 [place] fL 11:37 AM [facility] LABORATORY MCH 30.1 26.0 - 08/03/2022 [place] 34.0 pg 11:37 AM [facility] LABORATORY MCHC 32.7 32.0 - 08/03/2022 [place] 36.0 g/dL 11:37 AM [facility] LABORATORY RDW 13.7 11.5 - 08/03/2022 [place] 15.5 % 11:37 AM [facility] LABORATORY PLATELET COUNT 185 140 - 440 08/03/2022 [place] thou/cu 11:37 AM [facility] mm LABORATORY MPV 9.9 6.5 - 08/03/2022 [place] 11.0 fL 11:37 AM [facility] LABORATORY % NEUT 78.0 % 08/03/2022 [place] 11:37 AM [facility] LABORATORY % LYMPH 11.8 % 08/03/2022 [place] 11:37 AM [facility] LABORATORY % MONO 7.5 % 08/03/2022 [place] 11:37 AM [facility] LABORATORY % EOS 2.6 % 08/03/2022 [place] 11:37 AM [facility] LABORATORY % BASO 0.1 % 08/03/2022 [place] 11:37 AM [facility] LABOR[facility]ORY ABSOLUTE 6.3 1.7 - 7.0 08/03/2022 [place] NEUTROPHILS thou/cu 11:37 AM [facility] mm LABORATORY ABSOLUTE 1.0 0.9 - 2.9 08/03/2022 [place] LYMPHOCYTES thou/cu 11:37 AM [facility] mm LABORATORY ABSOLUTE 0.6 <0.9 08/03/2022 [place] MONOCYTES thou/cu 11:37 AM [facility] mm LABORATORY ABSOLUTE 0.2 <0.5 08/03/2022 [place] EOSINOPHILS thou/cu 11:37 AM [facility] mm LABORATORY ABSOLUTE 0.0 <0.3 08/03/2022 [place] BASOPHILS thou/cu 11:37 AM [facility] mm LABORATORY Specimen Anatomical Collection Method Collection Time Receive d Time (Source) Location / / Volume Laterality Blood BLOOD SPECIMEN / [place] / 08/03/2022 11:29 022 Unknown Unknown AM CDT 11:33 AM CDT Dewey Skelton Augustinejulien DO HEMATOLOGY Performing Organization Address City/State/ZIP Code Phon e Number [facility] [address] [place] [address] LACTATE VENOUS (08/03/2022 11:29 AM CDT) athologist Signature LACTATE,VENOUS 1.0 0.5 - 2.0 08/03/2022 [place] mmol/L 11:50 AM CDT [facility] Specimen Anatomical Collection Method Collection Time Receive d Time (Source) Location / / Volume Laterality Blood BLOOD SPECIMEN / [place] / 08/03/2022 11:29 022 Unknown Unknown AM CDT 11:33 AM CDT Dewey Formanmalcom Cueva DO CHEMISTRY Performing Organization Address City/[facility] [address]/ZIP Code Phon e Number [facility] [address] [place] [address] PROCALCITONIN (08/03/2022 11:29 AM CDT) athologist Signature PROCALCITONIN 0.03 <0.50 08/03/2022 [facility] ng/ml 12:35 PM CDT [facility] Specimen Anatomical Collection Method Collection Time Receive d Time (Source) Location / / Volume Laterality Blood BLOOD SPECIMEN / [place] / 08/03/2022 11:29 022 Unknown Unknown AM CDT 11:33 AM CDT [facility] LABORATORY - 12:35 PM CDT Procalcitonin for [...] Cueva DO SEND OUTS Performing Organization Address [facility] [address]/[facility] Phon e Number [facility] [address] [place] [address] BRAIN NATRIURETIC PEPTIDE (08/03/2022 11:29 AM CDT) athologist Signature BRAIN JIMBO 86 <100 pg/mL 08/03/2022 [facility] PEPTIDE 12:04 PM [facility] Specimen Anatomical Collection Method Collection Time Receive d Time (Source) Location / / Volume Laterality Blood BLOOD SPECIMEN / [place]fly / 08/03/2022 11:29 022 Unknown Unknown AM CDT 11:33 AM CDT Dewey Cueva DO CHEMISTRY Performing Organization Address [facility] [address]/[facility] Phon e Number [facility] [address] [place] [address] (ABNORMAL) Protime - INR (08/03/2022 11:29 AM CDT) P athologist Signature INR 1.6 (H) <1.3 08/03/2022 [facility] 11:48 AM T [facility] LAB[facility] PROTIME 18.2 (H) 12.0 - 13.8 08/03/2022 [facility] sec 11:48 AM [facility] Specimen Anatomical Collection Method Collection Time Receive d Time (Source) Location / / Volume Laterality Blood BLOOD SPECIMEN / [place]fly / 08/03/2022 11:29 022 Unknown Unknown AM CDT 11:33 AM CDT [facility] LABORATORY - 11:48 AM CDT ?Therapeutic Range [...] if the patient is on UFH. Dewey Cueva DO HEMATOLOGY Performing Organization Address [facility] [address]/[facility] Phon e [facility] LABORATORY [address] [place] [address] (ABNORMAL) D-DIMER,QUANTITATIVE (08/03/2022 11:29 AM CDT) [facility] Method Time Signature D-DIMER,QUANT 1.03 See Comment 08/03/2022 BRONX ITATIVE / FEU 11:50 AM CDT MEDICAL mcg/mL [place] [facility] D-DIMER Abnormal (A) 08/03/2022 BRONX INTERP 11:50 AM CDT [facility] Specimen Anatomical Collection Method Collection Time Receive d Time (Source) Location / / Volume Laterality Blood BLOOD SPECIMEN / [place]fly / 08/03/2022 11:29 022 Unknown Unknown AM CDT 11:33 AM CDT [facility] LABORATORY - 11:50 AM CDT The cut off value for exclusion of Deep Vein Thrombosis and / or Pulmonary Embolism is 0.50 FEU mcg/mL For patients greater than 50 years of ag e the upper limit is age dependent and was calculated with the formula: ?? (PATIENT AGE x 0.01) FEU mcg/mL = Upper limit of normal range Dewey Cueva DO HEMATOLOGY Performing Organization Address [facility] Phon e Number [facility] [address] [place] [address] Magnesium (08/03/2022 11:29 AM CDT) P athologist Signature MAGNESIUM 1.9 1.6 - 2.6 08/03/2022 [place] mg/dL 11:56 AM [facility] Specimen Anatomical Collection Method Collection Time Receive d Time (Source) Location / / Volume Laterality Blood BLOOD SPECIMEN / [place] / 08/03/2022 11:29 022 Unknown Unknown AM CDT 11:33 AM CDT Dewey Costa Cueva DO CHEMISTRY Performing Organization Address City/State/ZIP Code Phon e Number [facility] [address] [place] [address] (ABNORMAL) COMP METABOLIC PANEL (08/03/2022 11:29 AM CDT) Patholo gist Method Time Signature SODIUM 139 135 - 145 08/03/2022 [place] mmol/L 11:57 AM [facility]ORY POTASSIUM 4.2 3.5 - 5.0 08/03/2022 [place] mmol/L 11:57 AM [facility]ORY CHLORIDE 105 98 - 110 08/03/2022 [place] mmol/L 11:57 AM [facility] CO2,TOTAL 25 21 - 31 08/03/2022 [place] mmol/L 11:57 AM [facility] ANION GAP 9 5 - 18 08/03/2022 [place] 11:57 AM [facility]ORY GLUCOSE 137 (H) 65 - 100 08/03/2022 [place] mg/dL 11:57 AM [facility] CALCIUM 8.8 8.5 - 10.5 08/03/2022 [place] mg/dL 11:57 AM [facility] BUN 16 8 - 25 08/03/2022 [place] mg/dL 11:57 AM [facility]ORY CREATININE 0.96 0.72 - 08/03/2022 [place] 1.25 mg/dL 11:57 AM [facility] BUN/CREAT RATIO 17 10 - 20 08/03/2022 [place] 11:57 AM [facility] ALBUMIN 3.6 3.2 - 4.6 08/03/2022 [place] g/dL 11:57 AM [facility] PROTEIN,TOTAL 6.6 6.0 - 8.0 08/03/2022 [place] g/dL 11:57 AM [facility] GLOBULIN 3.0 2.0 - 3.7 08/03/2022 [place] g/dL 11:57 AM [facility] A/G RATIO 1.2 1.0 - 2.0 08/03/2022 [facility] 11:57 AM [facility] BILIRUBIN,TOTAL 1.4 (H) 0.2 - 1.2 08/03/2022 [facility] mg/dL 11:57 AM [facility] ALK PHOSPHATASE 86 50 - 136 08/03/2022 [place] IU/L 11:57 AM [facility] ALT (SGPT) 14 8 - 45 08/03/2022 [facility] IU/L 11:57 AM [facility] AST (SGOT) 20 2 - 40 08/03/2022 [facility] IU/L 11:57 AM [facility] eGFR 79 (L) >90 08/03/2022 [facility] mL/min/1.7 11:57 AM [facility] 3m2 LABORATORY Comment: As of 2022, eGFR [...] Organization Address City/State/ZIP Code Phon e Number [facility] [address] [place] [address] EKG 12 LEAD (08/03/2022 11:09 AM CDT) [facility] Method Time Signature Interpretation Atrial-paced rhythm [...] NOW QTc 497 ms BEYOND NOW P [place] 49 degrees BEYOND NOW R [place] -30 degrees BEYOND NOW T [place] 14 degrees BEYOND NOW Specimen Anatomical Collection Method Collection Time Receive d Time (Source) Location / / Volume Laterality 08/03/2022 11:09 08/03/2022 1:33 AM CDT PM CDT Dewey Cueva DO EKG ORD Performing Organization Address City/State/ZIP Code Phon e Number BEYOND NOW [place], [place] from Last 3 Months Insurance Payer Benefit Plan / Subscriber ID Effective Dates Phone Addre ss Type Group MEDICARE PART A MEDICARE PART A [id number] 2005-Presen ATTN: CLAIMS - HB USE ONLY HB ONLY t [address] [place] [address] MEDICARE PART B MEDICARE PART B [id number] 2007-Presen ATTN: CLAIMS - HB USE ONLY HB [place] t [address] [place] [address] BLUE CROSS BLUE CROSS [id number] 2016-Presen [address] [place], [place] HB ONLY [id number] BLUE CROSS MR BLUE CROSS [id number] 2016-Presen [address] [place], [place] MR PB ONLY [phone] Advance Directives Documents on File Type Date Recorded Patient Partnership Manager Explanati on Healthcare Directive 03/16/2017 2:27 PM [...] Code Status Discussion: Not Discussed Care Teams Compliance Auditor Relationship Specialty Start Date End Date Oscar Arevalo MD PCP - General Family Practice 05/14/211999 [place] [address]
== END 2022-08-01 10:51 | disposition home or self-care (01) ==
PROVIDERS: PCP Family Medicine; Visit Provider Family Medicine
DX: I49.9 Cardiac arrhythmia, unspecified (principal); R00.1 Bradycardia, unspecified; R06.09 Other forms of dyspnea
CPT/HCPCS: A0425; A0426

== ENCOUNTER 2022-08-12 10:47 | Outpatient (CLI) | payer MEDICARE, BC, SELFPAY ==
--- OUTSIDE RECORDS SUMMARY | 2022-08-12 11:02 | XMS_ITS | Encounter Summary ---
:1940 Author Organization [place] Address [address] [place] [address] Care Team Providers Name Role Phone Jordan Morales Primary Care Provider Reason for Visit Reason Comments Cystoscopy gross hematuria Encounter Details Date Type Department Care Team Description 10/23/2017 Office Visit [facility] Vidal, Henry Gross hematuria Urology Clinic MD Oscar (Primary Dx) [address] [address] [place] [address] [place], [place] (Work) [address] [phone] Social History Tobacco Use Types Packs/Day Years Used Date Smoking Tobacco: Former Cigarettes Quit : 11/02/1995 Smokeless Tobacco: Never Alcohol Use Standard Drinks/Week Comments Yes 28 (1 standard drink = 0.6 oz pure alcoh ol) Sex Assigned at Date Recorded Not on file documented as of this encounter Last Filed Vital Signs Vital Sign Reading Time Taken Comments Blood Pressure - - Pulse 62 10/23/2017 3:21 PM FACILITY MAINTENANCE TECHNICIAN Temperature - - Respiratory Rate - - Oxygen Saturation 93% 10/23/2017 3:21 PM FACILITY MAINTENANCE TECHNICIAN Inhaled Oxygen Concentration - - Weight 101.6 kg (224 lb) 10/23/2017 3:21 PM FACILITY MAINTENANCE TECHNICIAN Height 172.7 cm (5' 8) 10/23/2017 3:21 PM FACILITY MAINTENANCE TECHNICIAN Body Mass Index 34.06 10/23/2017 3:21 PM FACILITY MAINTENANCE TECHNICIAN documented in this encounter Patient Instructions Patient InstructionsCristo Vargas, APPAREL FASHION DESIGNER - 10/23/2017 3:30 PM CST AFTER YOUR [...] our office with any concerns or questions [phone] LITY MAINTENANCE TECHNICIAN documented in this encounter Progress Notes Henry Vidal MD - 10/23/2017 3:30 PM CST Office Visit Note [facility] UROLOGIC DIAGNOSES: Hematuria, history of [...] REPAIR ; Surgeon: Devyn Ocampo MD; Location: [place] ??? TESTICLE SURGERY ??? THYROIDECTOMY ??? VASECTOMY [...] atraumatic Cardiac: Not done Back/Flank: Not done BILLING MACHINE OPERATOR/PNS: Not done Respiratory: Normal non-labored breathing Abdomen: [...] in Consultation: 10 minutes Henry Vidal M.D. LITY MAINTENANCE TECHNICIAN documented in this encounter Nursing Notes Cristo [...] recommended by the MD. Darius Vargas CMA LITY MAINTENANCE TECHNICIAN documented in this encounter Miscellaneous Notes Addendum Note - Cristo Vargas CMA - 10/23/2017 4:09 PM FACILITY MAINTENANCE TECHNICIAN Addended by: CRISTO VARGAS on: 10/23/2017 04:09 PM Modules accepted: Orders LITY MAINTENANCE TECHNICIAN documented in this encounter Plan of Treatment Not on filedocumented as of this encounter Procedures Procedure Name Priority Date/Time Associated Diagnosis Comme nts CYTOLOGY NON AQUATICS LIFEGUARD Routine 10/23/2017 4:09 PM Gross hematuria Re sults for this FACILITY MAINTENANCE TECHNICIAN procedure are i n the results section. documented in this encounter Results Cytology non lithographed plate inspector [[id number]] (10/23/2017 4:09 PM FACILITY MAINTENANCE TECHNICIAN) Component Value Ref Test Analysis Performed At [facility] Range Method Time Signature Copath Report Patient Name: REBEKAH XIONG MR#: [id number] Specimen #: [id number] Collected: 10/23/2017 Received: 10/27/2017 [...] Jocelyn Hyatt M.D. Processed and screened at [facility] CLINICAL HISTORY: , GROSS: Urine-voided: ??Received 20 ml of yellow, clear fluid, proce ssed as 1 Pap stained AutoCyte. CPT Codes: A: 54153-[id number] TESTING LAB LOCATION: [address] ??[id number] COLLECTION SITE: Client: ??[facility] Location: ??[place]O (R) Specimen (Source) Anatomical Collection Method Collection Time Re ceived Time Location / / Volume Laterality Cytologic 10/23/2017 4:09 10/27/2017 8 :38 material PM FACILITY MAINTENANCE TECHNICIAN AM FACILITY MAINTENANCE TECHNICIAN (specimen) Henry Vidal MD LAB - OPTIME CLINICAL SPECIM EN Performing Organization Address City/State/ZIP Code Phon e Number COPATH documented in this encounter Visit Diagnoses Diagnosis Gross hematuria - Primary documented in this encounter Care Teams Yard Pilot Relationship Specialty Start Date End Date Jordan Morales PCP - General Family Practice 09/19/[address] [address] documented as of this encounter
--- OUTSIDE RECORDS SUMMARY | 2022-08-12 11:02 | XMS_ITS | Encounter Summary ---
:1940 Author Organization [place] Address [address] [place] [address] Care Team Providers Name Role Phone Maikel [...] on filedocumented in this encounter Care Teams Airconditioning Plant Operator Relationship Specialty Start Date End Date Maikel Brock PCP - General Family Practice 09/19/[address] [place] [address] documented as of this encounter
--- OUTSIDE RECORDS SUMMARY | 2022-08-12 11:02 | XMS_ITS | Clinical Summary ---
:1940 Author Organization [place] Address [address] [place] [address] Care Team Providers Name Role Phone Maikel [...] Comments Blood Pressure 148/81 09/19/2017 12:54 PM YARD ASSISTANT Pulse 62 10/23/2017 3:21 PM YARD ASSISTANT Temperature 36.6 ??C (97.9 ??F) 09/19/2017 9:41 AM YARD ASSISTANT Respiratory Rate 20 09/19/2017 12:54 PM YARD ASSISTANT Oxygen Saturation 93% 10/23/2017 3:21 PM YARD ASSISTANT Inhaled Oxygen Concentration - - Weight 101.6 kg (224 lb) 10/23/2017 3:21 PM YARD ASSISTANT Height 172.7 cm (5' 8) 10/23/2017 3:21 PM YARD ASSISTANT Body Mass Index 34.06 10/23/2017 3:21 PM YARD ASSISTANT Plan of Treatment Health Maintenance Due Date Last Done Comments ADVANCE CARE PLANNING 1940 ANNUAL REVIEW OF HM ORDERS 1940 HEPATITIS B IMMUNIZATION (1 1940 of 3 - 3-dose series) COVID-19 Vaccine (#1) 1940 DTAP/TDAP/TD IMMUNIZATION 1965 (1 - Tdap) FALL RISK ASSESSMENT 2005 MEDICARE ANNUAL WELLNESS 2005 VISIT ZOSTER IMMUNIZATION (2 of 11/26/2010 10/01/2010 3) Pneumococcal Vaccine: 65+ 08/09/2011 08/09/2010 Years (2 - PCV) PHQ-2 (once per calendar 10/26/2021 year) INFLUENZA VACCINE (#1) 2022 08/30/2017, 08/30/2017, 07/30/2016, Additional history exists IPV IMMUNIZATION Aged Out No longer eligi ble based on patient 's age to complete this topic MENINGITIS IMMUNIZATION Aged Out No longe r eligible based on patient 's age to complete this topic Insurance Payer Benefit Plan / Subscriber ID Effective Phone Address T ype Group Dates MEDICARE MEDICARE FOR HB [id number] 2013-Prese [phone] ATTN CLAIMS Medicare SUPPLEMENT nt 40 [address] [place] [address] BCBS BCBS TOGIAK [id number] 2016-Prese [phone] [address] [address] PPO BLUE nt 00 [place] [id number] Advance Directives For more information, please contact: [phone] Documents on File Type Date Recorded Patient Clerical Administrative Assistant Explanati on Advance Directives and 11/07/2012 8:20 AM VALIDAT ION OF Living Will AD-10/09/1999 Advance Directives and 11/07/2012 8:20 AM HEALTH CARE Living Will DIRECTIVE-1998 Care Teams Travel Services Professional Relationship Specialty Start Date End Date Maikel Brock PCP - General Family Practice 09/19/[address] [place] [address]
--- OUTSIDE RECORDS SUMMARY | 2022-08-12 11:03 | XMS_ITS | Encounter Summary ---
:1940 Author Organization [place] Address [facility] [place] [address] Care Team Providers Name Role Phone Maikel Brock Primary Care Provider Reason for Visit (Routine) - Closed Specialty Diagnoses / Procedures Referred By Contact Refer red To Contact Radiology / Radiology. Diagnoses EPIC order, sb Marcy [id number] Ct Scan [facility] [place] [address] [address] [place] [address] Phone: Fax: Referral ID Status Reason Start Date Expiration Date Visits Requ ested Visits Authorized [id number] Closed 09/29/2017 09/29/2018 1 1 Encounter Details Date Type Department Care Team Description 10/21/2017 Hospital Encounter [facility] Racquel Diaz, Gross hematuria [facility] PA-C [address] [employer] [facility] [address] [place] [address] [place] [address] Social History Tobacco Use Types Packs/Day [...] hematuria R esults for this W/O CONTRAST ELEMENTARY SUMMER SCHOOL TEACHER procedure are i n the results section. documented in this encounter Results CT Abdomen Pelvis w/o Contrast (10/21/2017 3:47 PM ELEMENTARY SUMMER SCHOOL TEACHER) Anatomical Region Laterality Modality Abdomen/Pelvis, SUBRAD CT BODY, UMP CT ABDOMEN PELVIS, Computed Tomography RAD CT Specimen (Source) Anatomical Location Collection Method / Collectio n Time Received Time / Laterality Volume Impressions 10/22/2017 7:56 AM ELEMENTARY SUMMER SCHOOL TEACHER IMPRESSION: No urinary tract calculi or hydronephrosis. Prostate gland is not enlarged but a few prostatic calc ifications are present. Follow-up as clinically warranted. MEGA WILSON MD Narrative 10/22/2017 7:56 AM ELEMENTARY SUMMER SCHOOL TEACHER CT ABDOMEN AND PELVIS WITHOUT CONTRAST 10/21/2017 [...] hematuria documented in this encounter Care Teams Cnc Supervisor Relationship Specialty Start Date End Date Maikel Brock PCP - General Family Practice 09/19/[address] [address] documented as of this encounter
--- OUTSIDE RECORDS SUMMARY | 2022-08-12 11:03 | XMS_ITS | Encounter Summary ---
:1940 Author Organization [place] Address [facility] [place] [address] Care Team Providers Name Role Phone Carlos Alberto Corral MD Primary Care Provider Maikel Brock Primary Care Provider Encounter Details Date Type Department Care Team Description 03/10/2014 Office Visit-[facility] Rafi Jarvis MD [address] [place] [address] [place] [id number] [phone] Social History Tobacco Use Types Packs/Day Years Used Date Smoking Tobacco: Former Cigarettes Quit : 11/02/1995 Smokeless Tobacco: Never Alcohol Use Standard Drinks/Week Comments Yes 0 (1 standard drink = 0.6 oz pure alcoho l) Sex Assigned at Date Recorded Not on file documented as of this encounter Progress Notes Tyrell Jarvis MD - 03/14/2014 12:32 PM CDT Progress Note Created by: Tyrell Jarvis M.D. [id number] DATE: 03/10/2014 REBEKAH XIONG DATE OF : 1940 AGE: [age] years old Referring Physician: CARLOS ALBERTO CORRAL Referring Clinic: [facility] CURRENT DIAGNOSES 1. - SVT (supraventricular tachycardia), [...] on filedocumented in this encounter Care Teams Parks Recreation Coordinator Relationship Specialty Start Date End Date Carlos Alberto Corral MD PCP - General Internal Medicine 10/15/12 09/18/[address] [address] Maikel Brock PCP - General Family Practice 09/19/[address] [address] documented as of this encounter
--- OUTSIDE RECORDS SUMMARY | 2022-08-12 11:03 | XMS_ITS | Encounter Summary ---
:1940 Author Organization [place] Address [address] [place] [address] Care Team Providers Name Role Phone Maikel Brock Primary Care Provider Reason for Visit Reason Comments Hematuria gross hem Encounter Details Date Type Department Care Team Description 09/23/2017 Office Visit [facility] Racquel Diaz, Gross hematuria Urology Clinic JOHN (Primary Dx) [address] [place], [place] [address] [place] [address] [phone] [address] (Work) [phone] Social History Tobacco Use Types Packs/Day Years [...] - - Pulse 60 09/23/2017 4:07 PM DYE HOUSE VAT WORKER Temperature - - Respiratory Rate - - Oxygen Saturation 96% 09/23/2017 4:07 PM DYE HOUSE VAT WORKER Inhaled Oxygen Concentration - - Weight 101.6 kg (224 lb) 09/23/2017 4:07 PM DYE HOUSE VAT WORKER Height 172.7 cm (5' 8) 09/23/2017 4:07 PM DYE HOUSE VAT WORKER Body Mass Index 34.06 09/23/2017 4:07 PM DYE HOUSE VAT WORKER documented in this encounter Patient Instructions Patient InstructionsRacquel Diaz PA-C - 09/23/2017 4:00 PM CST -Urinalysis and urine culture to rule out an infection. - Urine cytology to look for abnormal cells. - CT scan. Please call [phone] to schedule this at [facility]. This should be done 1-2 days prior to appointment with the Urologist. - Cystoscopy with the first available urologist to evaluate the interior of the bladder. Follow up as recommended by urologist performing evaluation. HOUSE VAT WORKER documented in this encounter Progress Notes Racquel Diaz PA-C - 09/23/2017 4:00 PM CST CC: Hematuria. HPI: It is a pleasure to see Mr. Abraham Mancuso, a 77 year old male [...] RT) who presented to the ER in [place] with gross hematuria on09/19/17. The patient states he first noticed the hematuria this past Thursday09/14/17. He states it has been ongoing since then and happens every day, but does not happen all day long. He notes he sometimes passes clots with the urine. The patient went to [facility] in [place] where they placed a Nava catheter and performed a urinalysis, which was negative. The patient went back on Thursday to have the catheter removed since it was irritating him. The patient was instructed to follow-up with urology, and made an appointment at [facility] for this 09/24/17. The patient continues to [...] REPAIR ; Surgeon: Devyn Ocampo MD; Location: [facility] ??? THYROIDECTOMY Current Outpatient Prescriptions Medication Sig [...] ?? The right kidney measures 9.3 cm [id number]. No mass or obstruction. ?? The left kidney measures 10.4 cm [id number]. No mass or obstruction. ?? The bladder [...] and coordination of care. Racquel Diaz PA-C [facility] HOUSE VAT WORKER documented in this encounter Nursing Notes Cristo Rosenberg CMA - 09/23/2017 4:00 PM CST Pt in and out of ED for gross hem. Pt has imaging in [facility]. Pt in and out of ED for blood in the urine. Darius Rosenberg CMA HOUSE VAT WORKER documented in this encounter Plan of Treatment Not on filedocumented as of this encounter Procedures Procedure Name Priority Date/Time Associated Comments Diagnosis URINE MACROSCOPIC Routine 09/23/2017 4:17 PM Gross hematuria R esults for this ONLY DYE HOUSE VAT WORKER procedure are i n the results section. documented in this encounter Results CT Abdomen Pelvis w/o Contrast (10/21/2017 3:47 PM DYE HOUSE VAT WORKER) Anatomical Region Laterality Modality Abdomen/Pelvis, SUBRAD CT BODY, UMP CT ABDOMEN PELVIS, Computed Tomography RAD CT Specimen (Source) Anatomical Location Collection Method / Collectio n Time Received Time / Laterality Volume Impressions 10/22/2017 7:56 AM DYE HOUSE VAT WORKER IMPRESSION: No urinary tract calculi or hydronephrosis. Prostate gland is not enlarged but a few prostatic calc ifications are present. Follow-up as clinically warranted. MEGA WILSON MD Narrative 10/22/2017 7:56 AM DYE HOUSE VAT WORKER CT ABDOMEN AND PELVIS WITHOUT CONTRAST 10/21/2017 [...] (ABNORMAL) UA without Microscopic (09/23/2017 4:17 PM [facility]) [facility] Method Time Signature Color Urine Yellow 09/23/2017 [place] 4:21 PM [facility] Appearance Urine Clear 09/23/2017 [place] 4:21 PM [facility] Glucose Urine Negative NEG^Negat 09/23/2017 [place] emily mg/dL 4:21 PM [facility] Bilirubin Urine Negative NEG^Negat 09/23/2017 [place] emily 4:21 PM [facility] Ketones Urine Negative NEG^Negat 09/23/2017 [place] emily mg/dL 4:21 PM [facility] Specific [place] 1.015 1.003 - 09/23/2017 [place] Urine 1.035 4:21 PM [facility] Blood Urine Moderate (A) NEG^Negat 09/23/2017 [place] emily 4:21 PM [facility] pH Urine 6.0 5.0 - 7.0 09/23/2017 [place] pH 4:21 PM [facility] Protein Albumin 100 (A) NEG^Negat 09/23/2017 [facility] Urine emily mg/dL 4:21 PM [facility] Urobilinogen 0.2 0.2 - 1.0 09/23/2017 [facility] Urine EU/dL 4:21 PM DYE HOUSE VAT WORKER [facility] Nitrite Urine Negative NEG^Negat 09/23/2017 [place] emily 4:21 PM DYE HOUSE VAT WORKER [facility] Leukocyte Negative NEG^Negat 09/23/2017 [place] Esterase Urine emily 4:21 PM DYE HOUSE VAT WORKER [facility] Source Midstream 09/23/2017 [place] Urine 4:21 PM DYE HOUSE VAT WORKER [facility] Specimen (Source) Anatomical Collection Method Collection Time Re ceived Time Location / / Volume Laterality Examination of 09/23/2017 4:17 09/23/2017 4:18 midstream urine PM DYE HOUSE VAT WORKER PM DYE HOUSE VAT WORKER specimen (procedure) Racquel Diaz PA-C LAB - URINE ORDERABLES Performing Organization Address City/State/ZIP Code Phon e Number [facility] [address] [place] [address] [facility] [address] documented in this encounter Visit Diagnoses Diagnosis Gross hematuria - Primary Gross hematuria documented in this encounter Care Teams Laundry Attendant Relationship Specialty Start Date End Date Maikel Brock PCP - General Family Practice 09/19/[address] [address] documented as of this encounter
--- OUTSIDE RECORDS SUMMARY | 2022-08-12 11:03 | XMS_ITS | Encounter Summary ---
:1940 Author Organization [facility] Address [address] [place] [address] Care Team Providers Name Role Phone Unavailable Primary Care Provider Unavailable Encounter Details Date Type Department Care Team Description 01/03/2010 Historic Results INTERFACED REPORT Manuel Silvestre MD [facility] [address] [place], [place] [address] (Wo rk) Social History Tobacco Use Types Packs/Day Years Used Date Smoking Tobacco: Never Assessed Sex Assigned at Date Recorded Not on file documented as of this encounter Plan of Treatment Not on filedocumented as of this encounter Procedures Procedure Name Priority Date/Time Associated Diagnosis Comme nts EKG 12 LEAD Routine 01/03/2010 8:49 AM Results f or this DIE CAST SUPERVISOR procedure are i n the results section . documented in this encounter Results EKG 12 LEAD (01/03/2010 8:49 AM DIE CAST SUPERVISOR) Component Value Ref Range Test Analysis Performed Pathologis t Method Time At Signature Ventricular Rate 165 BPM RADIOLOGY RESULTS Atrial Rate 166 BPM RADIOLOGY RESULTS QRS Duration 92 ms RADIOLOGY RESULTS QT 282 ms RADIOLOGY RESULTS QTc 467 ms RADIOLOGY RESULTS R AXIS 16 degrees RADIOLOGY RESULTS T [place] 12 degrees RADIOLOGY RESULTS Interpretation Supraventricular tachycardia RADIOLOGY ECG Incomplete right bundle branch block RESULTS Nonspecific ST abnormality Abnormal ECG No previous ECGs available Specimen Anatomical Collection Method Collection Time Receive d Time (Source) Location / / Volume Laterality 01/03/2010 8:49 AM 0 8:59 DIE CAST SUPERVISOR AM DIE CAST SUPERVISOR Ciro Silvestre MD ECG ORDERABLES Performing Organization Address City/State/ZIP Code Phon e Number RADIOLOGY RESULTS documented in this encounter Visit Diagnoses Not on filedocumented in this encounter
--- OUTSIDE RECORDS SUMMARY | 2022-08-12 11:03 | XMS_ITS | Encounter Summary ---
:1940 Author Organization [place] Address [address] [place] [address] Care Team Providers Name Role Phone Maikel Brock Primary Care Provider Reason for Visit Reason Comments Hematuria Encounter Details Date Type Department Care Team Description 09/19/2017 Emergency [facility] Danica Gloria MD Gross [facility] Emergency Dept [facility] OA [address] [facility] [address] [place], [place] [address] [phone] Social History Tobacco Use Types Packs/Day Years [...] Comments Blood Pressure 148/81 09/19/2017 12:54 PM PREMIUM CANCELLATION CLERK Pulse - - Temperature 36.6 ??C (97.9 ??F) 09/19/2017 9:41 AM PREMIUM CANCELLATION CLERK Respiratory Rate 20 09/19/2017 12:54 PM PREMIUM CANCELLATION CLERK Oxygen Saturation 94% 09/19/2017 12:54 Simultaneous filing. PM PREMIUM CANCELLATION CLERK User may not hav e seen previous data. Inhaled Oxygen - - Concentration Weight 101.6 kg (224 lb) 09/19/2017 9:41 AM PREMIUM CANCELLATION CLERK Height 172.7 cm (5' 8) 09/19/2017 9:41 AM PREMIUM CANCELLATION CLERK Body Mass Index 34.06 09/19/2017 9:41 AM PREMIUM CANCELLATION CLERK documented in this encounter Discharge Instructions Discharge [...] easy bruising Date Last Reviewed: 06/26/2016 ?? [id number] [employer]. [address] [place] [address], [place] [address]. All rights reserved. This information is not intended as a substitute for professional medical care. Always follow your healthcare professional's instructions. IUM CANCELLATION CLERK documented in this encounter Medications at Time [...] Patient to US via cart with transport. IUM CANCELLATION CLERK Bonnie Hicks RN - 09/19/2017 9:46 AM CST A&Ox4. ABC's intact. Pt c/o blood and clots in urine that started last week. Was [facility], Thursday. Has a follow appt on at [facility], but bleeding has returned. Denies pain. IUM CANCELLATION CLERK Diotne Gloria MD - 09/19/2017 9:29 AM CST [...] with the urine. The patient went to [facility] in [place] where they placed a Nava catheter and performed a urinalysis, which was negative. The patient went back on Thursday to have the catheter removed since it was irritating him. The patient was instructed to follow-up with urology, and made an appointment at [facility] for this 09/24/17. 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 He was unable to receive a prompt appointment with urology in [place] so presents here today. The patient has continued to have symptoms intermittentlyand, although he has a follow-up appointment with [facility] scheduled for , came in for further [...] Disposition: Discharged to home Berta Santillan 09/19/2017 [facility] EMERGENCY DEPARTMENT Berta Henley, irma serving as a scribe at 10:52 AM on 09/19/2017 to document services personally performed by Dionte Gloria MD based on my observations and the provider's statements to me. Dionte Gloria MD 09/19/17 1646 IUM CANCELLATION CLERK documented in this encounter Plan of Treatment Not on filedocumented as of this encounter Procedures Procedure Name Priority Date/Time Associated Comments Diagnosis US RENAL COMPLETE STAT 09/19/2017 12:16 Result s for this PM PREMIUM CANCELLATION CLERK procedure are i n the results section. CBC WITH PLATELETS & STAT 09/19/2017 11:15 Res ults for this DIFFERENTIAL AM PREMIUM CANCELLATION CLERK procedure are i n the results section. BASIC METABOLIC PANEL STAT 09/19/2017 11:15 Re sults for this AM PREMIUM CANCELLATION CLERK procedure are i n the results section. ROUTINE UA WITH STAT 09/19/2017 10:40 Results for this MICROSCOPIC AM PREMIUM CANCELLATION CLERK procedure are i n the results section. documented in this encounter Results US Renal Complete (09/19/2017 12:16 PM PREMIUM CANCELLATION CLERK) Anatomical Region Laterality Modality Abdomen/Pelvis Ultrasound Specimen (Source) Anatomical Location Collection Method / Collectio n Time Received Time / Laterality Volume Impressions 09/19/2017 12:48 PM PREMIUM CANCELLATION CLERK IMPRESSION: Negative. SCOOTER ZARCO MD Narrative 09/19/2017 12:48 PM PREMIUM CANCELLATION CLERK ULTRASOUND RENAL COMPLETE ??09/19/2017 12:16 PM HISTORY: [...] (ABNORMAL) Basic metabolic panel (09/19/2017 11:15 AM PREMIUM CANCELLATION CLERK) P athologist Signature Sodium 137 133 - 144 09/19/2017 [facility] mmol/L 11:50 AM [facility] Potassium 4.0 3.4 - 5.3 09/19/2017 [facility] mmol/L 11:50 AM [facility] Chloride 106 94 - 109 09/19/2017 [facility] mmol/L 11:50 AM [facility] Carbon Dioxide 25 20 - 32 09/19/2017 [facility] mmol/L 11:50 AM [facility] Anion Gap 6 3 - 14 09/19/2017 [facility] mmol/L 11:50 AM [facility] Glucose 107 (H) 70 - 99 09/19/2017 [facility] mg/dL 11:50 AM [facility] Urea Nitrogen 17 7 - 30 09/19/2017 [facility] mg/dL 11:50 AM [facility] Creatinine 0.98 0.66 - 09/19/2017 [facility] 1.25 mg/dL 11:50 AM [facility] GFR Estimate 74 >60 09/19/2017 [facility] mL/min/1.7 11:[address] Comment: Non GFR Calc GFR Estimate If 89 >60 mL/min/1.7m2 09/19/2017 11:50 AM [facility] Comment: GFR Calc Calcium 8.5 8.5 - 10.1 mg/dL 09/19/2017 11:50 AM [facility] Specimen Anatomical Collection Method Collection Time Receive d Time (Source) Location / / Volume Laterality Blood specimen 09/19/2017 11:15 7 (specimen) AM PREMIUM CANCELLATION CLERK 11:29 AM PREMIUM CANCELLATION CLERK Dionte Gloria MD LAB - BLOOD ORDERABLES Performing Organization Address City/State/ZIP Code [facility] e Number [place] [address] [place] [address] [facility] [address] [phone] CBC with platelets differential (09/19/2017 11:15 AM [facility]) [facility] Method Time Signature WBC 6.9 4.0 - 09/19/2017 [facility] 11.0 11:33 AM [facility] 10e9/L [facility] RBC Count 4.71 4.4 - 5.9 09/19/2017 [facility] 10e12/L 11:33 AM [facility] Hemoglobin 14.3 13.3 - 09/19/2017 [facility] 17.7 g/dL 11:33 AM [facility] Hematocrit 42.5 40.0 - 09/19/2017 [facility] 53.0 % 11:33 AM [facility] MCV 90 78 - 100 09/19/2017 [facility] fl 11:33 AM [facility] MCH 30.4 26.5 - 09/19/2017 [facility] 33.0 pg 11:33 AM [facility] MCHC 33.6 31.5 - 09/19/2017 [facility] 36.5 g/dL 11:33 AM [facility] RDW 13.4 10.0 - 09/19/2017 [facility] 15.0 % 11:33 AM [facility] Platelet Count 195 150 - 450 09/19/2017 [facility] 10e9/L 11:33 AM [facility] Diff Method Automated 09/19/2017 [facility] Method 11:33 AM [facility] % Neutrophils 74.7 % 09/19/2017 [facility] 11:33 AM [facility] % Lymphocytes 14.5 % 09/19/2017 [facility] 11:33 AM [facility] % Monocytes 7.2 % 09/19/2017 [facility] 11:33 AM [facility] % Eosinophils 2.9 % 09/19/2017 [facility] 11:33 AM [facility] % Basophils 0.3 % 09/19/2017 [facility] 11:33 AM [facility] % Immature 0.4 % 09/19/2017 [facility] Granulocytes 11:33 AM [facility] Nucleated RBCs 0 0 /100 09/19/2017 [facility] 11:33 AM [facility] Absolute 5.2 1.6 - 8.3 09/19/2017 [facility] Neutrophil 10e9/L 11:33 AM [facility] Absolute 1.0 0.8 - 5.3 09/19/2017 [facility] Lymphocytes 10e9/L 11:33 AM [facility] Absolute 0.5 0.0 - 1.3 09/19/2017 [facility] Monocytes 10e9/L 11:33 AM [facility] Absolute 0.2 0.0 - 0.7 09/19/2017 [facility] Eosinophils 10e9/L 11:33 AM [facility] Absolute 0.0 0.0 - 0.2 09/19/2017 [facility] Basophils 10e9/L 11:33 AM [facility] Abs Immature 0.0 0 - 0.4 09/19/2017 [facility] Granulocytes 10e9/L 11:33 AM [facility] Absolute 0.0 09/19/2017 [facility] Nucleated RBC 11:33 AM [facility] Specimen Anatomical Collection Method Collection Time Receive d Time (Source) Location / / Volume Laterality Blood specimen 09/19/2017 11:15 7 (specimen) AM PREMIUM CANCELLATION CLERK 11:29 AM PREMIUM CANCELLATION CLERK Dionte Gloria MD LAB - BLOOD ORDERABLES Performing Organization Address City/State/ZIP Code Phon e Number [place] [address] [place], [place] [address] [facility] [place] [address] [place], [place] [address] [place] [address] (ABNORMAL) UA with Microscopic (09/19/2017 10:40 AM PREMIUM CANCELLATION CLERK) [facility] Method Time Signature Color Urine Yellow 09/19/2017 [facility] 11:06 AM [facility] Appearance Urine Slightly 09/19/2017 [facility] Cloudy 11:06 AM [facility] Glucose Urine Negative NEG^Negat 09/19/2017 [facility] emily mg/dL 11:06 AM [facility] Bilirubin Urine Negative NEG^Negat 09/19/2017 [facility] emily 11:06 AM [facility] Ketones Urine Negative NEG^Negat 09/19/2017 [facility] emily mg/dL 11:06 AM [facility] Specific [place] 1.012 1.003 - 09/19/2017 [facility] Urine 1.035 11:06 AM [facility] Blood Urine Large (A) NEG^Negat 09/19/2017 [facility] emily 11:06 AM [facility] pH Urine 6.0 5.0 - 7.0 09/19/2017 [facility] pH 11:06 AM [facility] Protein Albumin Negative NEG^Negat 09/19/2017 [facility] Urine emily mg/dL 11:06 AM [facility] Urobilinogen 0.0 0.0 - 2.0 09/19/2017 [facility] mg/dL mg/dL 11:06 AM [facility] Nitrite Urine Negative NEG^Negat 09/19/2017 [facility] emily 11:06 AM [facility] Leukocyte Negative NEG^Negat 09/19/2017 [facility] Esterase Urine emily 11:06 AM [facility] Source Midstream 09/19/2017 [facility] Urine 10:54 AM [facility] WBC Urine 4 (H) 0 - 2 09/19/2017 [facility] /HPF 11:06 AM [facility] RBC Urine 103 (H) 0 - 2 09/19/2017 [facility] /HPF 11:06 AM [facility] Mucous Urine Present (A) NEG^Negat 09/19/2017 [facility] emily /LPF 11:06 AM [facility] Hyaline Casts 1 0 - 2 09/19/2017 [facility] 11:06 AM [facility] Specimen (Source) Anatomical Collection Method Collection Time Re ceived Time Location / / Volume Laterality Examination of URINE SPECIMEN 09/19/2017 10:40 017 midstream urine OBTAINED BY CLEAN AM PREMIUM CANCELLATION CLERK 10:53 A M [facility] specimen CATCH PROCEDURE / (procedure) Unknown Paul Edwards MD LAB - URINE ORDERABLES Performing Organization Address City/State/ZIP Code Phon e Number M [facility] [address] [place], [place] [address] [facility] [address] [place], [place] [address] [place] [address] documented in this encounter Visit Diagnoses Diagnosis Gross hematuria documented in this encounter Care Teams Lpc Relationship Specialty Start Date End Date Maikel Brock PCP - General Family Practice 09/19/17 [facility] [address] [place] [address] documented as of this encounter
--- OUTSIDE RECORDS SUMMARY | 2022-08-12 11:03 | XMS_ITS | Encounter Summary ---
:1940 Author Organization [facility] Address [address] [place] [address] Care Team Providers Name Role Phone Unavailable Primary Care Provider Unavailable Reason for Visit Reason Comments Refill Request Encounter Details Date Type Department Care Team Description 04/21/2012 [facility]-Internal Jessie Corral MD Refill Request Medicine [phone] [address] [place] [address] [phone] (Wo rk) Social History Tobacco Use Types Packs/Day Years Used Date Smoking Tobacco: Never Assessed Sex Assigned at Date Recorded Not on file documented as of this encounter Plan of Treatment Not on filedocumented as of this encounter Visit Diagnoses Diagnosis Pure hypercholesterolemia documented in this encounter
--- OUTSIDE RECORDS SUMMARY | 2022-08-12 11:03 | XMS_ITS | Encounter Summary ---
:1940 Author Organization [facility] Address [address] [place] [address] Care Team Providers Name Role Phone Unavailable Primary Care Provider Unavailable Encounter Details Date Type Department Care Team Description 01/01/2011 Office Visit-[facility] DE[facility] Patricia Mandel MD [address] [place], [place] [phone] Social History Tobacco Use Types Packs/Day Years Used Date Smoking Tobacco: Never Assessed Sex Assigned at Date Recorded Not on file documented as of this encounter Progress Notes Ministerio Eron E - 01/01/2011 9:00 AM CST Military Police Officer: Romeoearlrose maryEron vazquez Status: Final - Signature Encounter: 01 Jan 2011 Type: Ther Rad Visit FINAL PROBLEM: Adenocarcinoma of prostate, 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 RECTAL: Prostate is flat and smooth. No nodularities. LABS: PSA is 0.21. in October at his [facility] ASSESSMENT AND PLAN: Mr. Mancuso is [...] with us today. ERON MANDEL MD Document: [id number] cc: Ko Aguirre MD and Carlos Alberto Corral Electronically signed by:Eron Mandel M.D. Jan 01 2011 9:52AM SALT LIFTER LIFTER documented in this encounter Plan of Treatment Not on filedocumented as of this encounter Visit Diagnoses Not on filedocumented in this encounter
--- OUTSIDE RECORDS SUMMARY | 2022-08-12 11:03 | XMS_ITS | Encounter Summary ---
:1940 Author Organization [place] Address [facility] [place] [address] Care Team Providers Name Role Phone Carlos Alberto Corral MD Primary Care Provider Maikel Brock Primary Care Provider Encounter Details Date Type Department Care Team Description 03/03/2014 Office Visit-[facility] Jey Parks MD [address] [place] [address] [place] [address] (Wo rk) Social History Tobacco Use Types [...] CORRAL Referring Clinic: [facility] CURRENT DIAGNOSES 1. 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 We will refer him to a protozoologist to see if medical therapy with metoprolol [...] 1 week 2. F/U with Any EP ASSESSMENT ANALYST/PA 4-7 days, Aliya Raygoza, Marybel Ahumada, Cookie Bragg ONLY 3. Sleep Consult Schedule At [facility] Jey Parks M.D. documented in this encounter Plan of Treatment Not on filedocumented as of this encounter Visit Diagnoses Not on filedocumented in this encounter Care Teams Field Mechanic Relationship Specialty Start Date End Date Carlos Alberto Corral MD PCP - General Internal Medicine 10/15/12 09/18/[address] [address] Maikel Brock PCP - General Family Practice 09/19/[address] [address] documented as of this encounter
--- OUTSIDE RECORDS SUMMARY | 2022-08-12 11:03 | XMS_ITS | Encounter Summary ---
:1940 Author Organization [place] Address [address] [place] [address] Care Team Providers Name Role Phone Unavailable Primary Care Provider Unavailable Encounter Details Date Type Department Care Team Description 01/03/2010 Historic Results INTERFACED REPORT Manuel Silvestre MD EMERGENCY PHYSIC [place] [address] [place], [place] [address] (Wo rk) Social History Tobacco Use Types Packs/Day Years Used Date Smoking Tobacco: Never Assessed Sex Assigned at Date Recorded Not on file documented as of this encounter Plan of Treatment Not on filedocumented as of this encounter Procedures Procedure Name Priority Date/Time Associated Diagnosis Comme [facility] EKG 12 LEAD Routine 01/03/2010 8:55 AM Results f or this VEHICLE CHECK IN CLERK procedure are i n the results section . documented in this encounter Results EKG 12 LEAD (01/03/2010 8:55 AM VEHICLE CHECK IN CLERK) [facility] Method Time Signature Ventricular Rate 98 BPM RADIOLOGY RESULTS Atrial Rate 98 BPM RADIOLOGY RESULTS NM Interval 188 ms RADIOLOGY RESULTS QRS Duration 100 ms RADIOLOGY RESULTS QT 332 ms RADIOLOGY RESULTS QTc 423 ms RADIOLOGY RESULTS R AXIS 7 degrees RADIOLOGY RESULTS T Mcclellan 28 degrees RADIOLOGY RESULTS Interpretation Sinus rhythm [...] Volume Laterality 01/03/2010 8:55 AM 0 9:19 VEHICLE CHECK IN CLERK AM VEHICLE CHECK IN CLERK Ciro Silvestre MD ECG ORDERABLES Performing Organization Address City/State/ZIP Code Phon e Number RADIOLOGY RESULTS documented in this encounter Visit Diagnoses Not on filedocumented in this encounter
--- OUTSIDE RECORDS SUMMARY | 2022-08-12 11:03 | XMS_ITS | Encounter Summary ---
:1940 Author Organization [place] Address [address] [facility] [place] [address] Care Team Providers Name Role Phone Carlos Alberto Corral MD Primary Care Provider Reason for Visit Auth/Cert - Closed Specialty Diagnoses / Procedures Referred By Contact Refer red To Contact Surgery Diagnoses PTOSIS AND MECHANICAL PTOSIS OF BILATERAL UPPER LIDS S h Periop Services Procedures REPAIR PTOSIS BILATERAL [address] [place] [address] Phone: Referral ID Status Reason Start Date Expiration Date Visits Requ ested Visits Authorized [id number] Closed 1 1 Encounter Details Date Type Department Care Team Description 11/02/2012 Hospital Encounter [facility] Devyn Ocampo Post -op pain [place] Phase II MD Darren (Primary Dx) [address] OPHTHALMIC [place] [address] [address] [phone] [place] [address] [place] [address] Social History [...] Comments Blood Pressure 162/86 11/02/2012 11:15 AM CHAIR CANER Pulse - - Temperature 36.7 ??C (98.1 ??F) 11/02/2012 8:43 AM CHAIR CANER Respiratory Rate 16 11/02/2012 11:15 AM CHAIR CANER Oxygen Saturation 97% 11/02/2012 11:15 AM CHAIR CANER Inhaled Oxygen Concentration - - Weight 89.8 kg (198 lb) 11/02/2012 8:43 AM CHAIR CANER Height 172.7 cm (5' 8) 11/02/2012 8:43 AM CHAIR CANER Body Mass Index 30.11 11/02/2012 8:43 AM CHAIR CANER documented in this encounter Discharge Instructions Discharge [...] not make important decisions for 24 hours. [facility] Eyelid/Orbital Surgery Discharge Instructions Devyn Ocampo [...] that will not stop with gentle pressure. R CANER documented in this encounter Medications at Time [...] Ocampo MD - 10/29/2012 10:49 AM CST R CANER documented in this encounter OR Notes OR Anesthesia - Devyn Ocampo MD - 11/05/2012 1:14 PM CST R CANER documented in this encounter Miscellaneous Notes Provider Notification - Susi Díaz RN - 11/02/2012 11:19 AM CST Drainage minimal at this time. R CANER Provider Notification - Susi Díaz RN - 11/02/2012 11:[address] Ocampo notified of moderate drainage from right inner canthus, eye pad applied with pressure perDr. Ocampo. R CANER Provider Notification - Ally iDaz RN - 11/02/2012 10:58 AM CST Moist ice dressing R CANER Provider Notification - Ally Diaz RN - 11/02/2012 10:57 AM CST MOderate bloody drainage from right inner canthus, moist ice pack refreshed R CANER Op Note - Devyn Ocampo MD - [...] left the operating room in stable condition. R CANER documented in this encounter Plan of Treatment Not on filedocumented as of this encounter Procedures Procedure Name Priority Date/Time Associated Diagnosis Comme nts REPAIR, PTOSIS, 11/02/2012 9:26 AM CHAIR CANER PTOSIS AND [facility] ANICAL BILATERAL PTOSIS OF BILATERAL UPPER LIDS documented in this encounter Visit Diagnoses Diagnosis Post-op pain - Primary Other acute postoperative pain documented in this encounter Administered Medications Inactive Administered Medications - up to 3 most recent administrations Medication Order MAR Action Action Date Dose Rate Site HYDROcodone-acetaminophen 5-325 Given 11/02/2012 11:16 AM CHAIR CANER 1 tablet MG per tablet 1 tablet 1 tablet, Oral, EVERY 6 HOURS PRN, moderate to severe pain, Starting on Thu11/02/12 at 1115, PACU documented in this encounter Active and Recently Administered Medications Times are shown in CHAIR CANER. PRN Medication Order 10/31/2012 11/01/2012 11/02/2012 erythromycin (ROMYCIN) ophthalmic ointment (CANCELED) 0957 (Given - Provider: Devyn Ocampo MD) PRN, Starting Thu11/02/12 at 0957, Apply within 1 hour of . May be delayed until after first ., Intra-procedure HYDROcodone-acetaminophen 5-325 MG per tablet 1 tablet (CANCELED ) 1116 (Given - Provider: Susi Díaz, RN) 1 tablet, Oral, EVERY 6 HOURS PRN, moder ate to severe pain, Starting Thu11/02/12 at 1115, PACU lidocaine 2%-EPINEPHrine 1:200,000 injection (CANCELED) 0957 (Given - Provider: Devyn Ocampo MD)1020 (Given - Provider: Devyn Ocampo MD) PRN, Starting Thu11/02/12 at 0957, Intra-procedure documented in this encounter Care Teams Outreach Educator Relationship Specialty Start Date End Date Carlos Alberto Corral MD PCP - General Internal Medicine 10/15/12 09/18/[address] [address] documented as of this encounter
--- OUTSIDE RECORDS SUMMARY | 2022-08-12 11:03 | XMS_ITS | Encounter Summary ---
:1940 Author Organization [place] Address [facility] [place] [address] Care Team Providers Name Role Phone Carlos Alberto Corral MD Primary Care Provider Encounter Details Date Type Department Care Team Description 11/02/[address] [facility] Mya Dela Cruz MD [facility] PeriOP [address] [place] [address] [place] [address] Anesthesia Record Procedure Summary Procedure Name Responsible Anesthesia Start Anesthesia Stop Anesthesiologist Time Time BILATERAL UPPER LID Henry Dela Cruz MD 11/02/12 0931 1039 PTOSIS AND MECHANICAL PTOSIS REPAIR (Bilateral: Eye) Events Date Time Event Comment 11/02/2012 0831 0931 An Start 1039 An Stop No medications on file. Agents No agents on file. Blood No blood administrations on file. Lines, Drains, and Airways Type Details Placement Removal Peripheral IV 11/02/12; 0934; 11/02/12 0934 by Bernardo, 11/02/12 1127 by Left; Hand EDMUNDO Reese Melia, RN CRNA Incision/Surgical Site 11/02/12; 1030; 11/02/12 1030 by [...] 16 SpO2: 97% 97% 97% Additional Comments: T FLUNKY Anesthesia Preprocedure Evaluation - Henry Dela Cruz [...] benefits and alternatives discussed with: patient or footwear sales representative. Pre-operative diagnosis: @ORPREDX@ @ORPROCALL@ @ALLERGY@ Current [...] no interval change.incomp. RBBB; prostate cancer . T FLUNKY documented in this encounter Miscellaneous Notes Anesthesia Care Transfer Note - Jasmin Chang APRN CRNA - 11/02/2012 10:39 AM CST Anesthesia Care Transfer Note Patient: Abraham Mancuso Transferred to: PACU Patient vital signs: stable Airway: none 1036: to par awake, on room air, dentition unchanged from pre-op. T FLUNKY documented in this encounter Plan of Treatment Not on filedocumented as of this encounter Visit Diagnoses Not on filedocumented in this encounter Care Teams Stack Supervisor Relationship Specialty Start Date End Date Carlos Alberto Corral MD PCP - General Internal Medicine 10/15/12 09/18/[address] [address] documented as of this encounter
--- OUTSIDE RECORDS SUMMARY | 2022-08-12 11:03 | XMS_ITS | Encounter Summary ---
:1940 Author Organization [place] Address [address] [place] [place] [address] Care Team Providers Name Role Phone Unavailable Primary Care Provider Unavailable Encounter Details Date Type Department Care Team Description 01/03/2010 Results Only [facility] Konrad, Se yarelis Wilhelm MD [facility] EMERGENCY MISA PRADO [place] Results [address] [place], [place] [address] (Wo rk) Social History Tobacco Use Types Packs/Day Years Used Date Smoking Tobacco: Never Assessed Sex Assigned at Date Recorded Not on file documented as of this encounter Plan of Treatment Not on filedocumented as of this encounter Procedures Procedure Name Priority Date/Time Associated Diagnosis Comme nts CHEST TWO VIEWS, Routine 01/03/2010 9:31 AM Re sults for this FRONT/LAT MEDICATION SPECIALIST procedure are i n the results section. documented in this encounter Results CHEST X-RAY 2 VW (01/03/2010 9:31 AM MEDICATION SPECIALIST) Anatomical Region Laterality Modality Other Specimen (Source) Anatomical Collection Method Collection Time Re ceived Time Location / / Volume Laterality 01/03/2010 9:31 AM MEDICATION SPECIALIST Impressions 01/07/2010 2:51 AM CDT CHEST TWO VIEW January 03, 2010 9:31:00 AM HISTORY: Chest pain. COMPARISON: None. FINDINGS: No evidence for acute disease. Ciro Silvestre MD GENERAL IMAGING documented in this encounter Visit Diagnoses Not on filedocumented in this encounter
--- OUTSIDE RECORDS SUMMARY | 2022-08-12 11:03 | XMS_ITS | Encounter Summary ---
:1940 Author Organization [place] Address [address] [place] [address] Care Team Providers Name Role Phone Carlos Alberto Corral MD Primary Care Provider Encounter Details Date Type Department Care Team Description 03/06/[address] [facility] Heart Unknown, [address] [place] [address] Social History Tobacco Use Types Packs/Day [...] SCAN - ARCHIVE (03/06/2014 12:00 AM CDT) Anatomical Region Laterality Modality Echocardiography Specimen (Source) Anatomical Location Collection Method / Collectio n Time Received Time / Laterality Volume 03/06/2014 Narrative This result has an attachment that is no t available. Provider Scan CV ECHO ORDERABLES documented in this encounter Visit Diagnoses Not on filedocumented in this encounter Care Teams Bakery Demonstrator Relationship Specialty Start Date End Date Carlos Alberto Corral MD PCP - General Internal Medicine 10/15/12 09/18/[address] [address] documented as of this encounter
--- OUTSIDE RECORDS SUMMARY | 2022-08-12 11:03 | XMS_ITS | Encounter Summary ---
:1940 Author Organization [place] Address [address] [place] [address] Care Team Providers Name Role Phone Carlos Alberto Corral MD Primary Care Provider Reason for Visit Reason Comments Tachycardia history afib, states feels l radames hr is fast, sob, shaky Encounter Details Date Type Department Care Team Description 02/17/2014 Emergency [facility] Farida Branham, Hyp ertension (Primary Dx); Dorothy Emergency Palpitations Dept EM[facility]Y [facility] [address] [place] [address] [place] [phone] [address] [place] [phone] (Wo rk) Social History Tobacco Use Types [...] Care Everywhere. HYPERTENSION, ESTABLISHED, OUT OF CONTROL (AZERI)documented in this encounter Medications at Time of [...] Course ECG @ 11:16 Rate 88 bpm. MD interval 156 ms. QRS duration 102 ms. [...] 2:55 PM I spoke with Dr. Whitman, employee relations director for the patient's PCP. Dr. Corral. Findings [...] this, I discussed the case with Dr. Scott Whitman. He was prescribed Metoprolol XL 50 [...] Acute palpitations (785.1). 3. Acute mild hyperglycemia I, Valentina Almaraz, am serving as a scribe on 02/17/2014 at 11:49 AM to personally document services performed by Dr. Branham based on my observations and the provider's statements to me. Valentina Almaraz 02/17/2014 EMERGENCY DEPARTMENT Farida Branham MD 02/17/14 8542 documented in this encounter Plan of Treatment [...] Signature Troponin I ES <0.012 0.000 - [place] 0.034 ug/L [facility] Specimen Anatomical Collection Method Collection Time Receive d Time (Source) Location / / Volume Laterality Blood specimen 02/17/2014 11:48 4 (specimen) AM CDT 12:24 PM CDT Farida Branham MD LAB - BLOOD ORDERABLES Performing Organization Address City/State/ZIP Code Phon e Number M [facility] [address] [place] [address] [facility] (ABNORMAL) Comprehensive metabolic panel (02/17/2014 11:48 AM CDT) Analysis Performed At Patho logist Time Signature Sodium 143 133 - 144 [place] mmol/L [facility] Potassium 4.3 3.4 - 5.3 [place] mmol/L [facility] Chloride 101 94 - 109 [place] mmol/L [facility] Carbon Dioxide 28 20 - 32 [place] mmol/L [facility] Anion Gap 14 6 - 17 [place] mmol/L [facility] Glucose 129 (H) 60 - 99 [place] mg/dL [facility] Urea Nitrogen 21 7 - 30 [place] mg/dL [facility] Creatinine 1.04 0.66 - [place] 1.25 mg/dL [facility] GFR Estimate 70 >60 [place] mL/min/1.[address] LAB GFR Estimate If 85 >60 [place] Black mL/min/1.[address] LAB Calcium 8.9 8.5 - 10.4 [place] mg/dL [facility] Bilirubin Total 0.9 0.2 - 1.3 [place] mg/dL [facility] Albumin 4.1 3.3 - 4.9 [place] g/dL [facility] Protein Total 7.1 6.8 - 8.8 [place] g/dL [facility] Alkaline 64 40 - 150 [place] Phosphatase U/L [facility] ALT 41 0 - 70 U/L [facility] AST 40 0 - 45 U/L [facility] Specimen Anatomical Collection Method Collection Time Receive d Time (Source) Location / / Volume Laterality Blood specimen 02/17/2014 11:48 4 (specimen) AM CDT 12:24 PM CDT Farida Branham MD LAB - BLOOD ORDERABLES Performing Organization Address City/State/ZIP Code Phon e Number M [facility] [address] [place], [place] [address] [facility] CBC with platelets + differential (02/17/2014 11:48 AM CDT) [facility] gist Method Time Signature WBC 6.0 4.0 - [place] 11.0 [facility] 10e9/[facility] RBC Count 4.66 4.4 - 5.9 [place] 10e12/L [facility] Hemoglobin 13.8 13.3 - [place] 17.7 g/dL [facility] Hematocrit 42.4 40.0 - [place] 53.0 % [facility] MCV 91 78 - [address] [place] [address] [facility] MCH 29.6 26.5 - [place] 33.[address] [facility] MCHC 32.5 31.5 - [place] 36.5 g/dL [facility] RDW 14.0 10.0 - [place] 15.0 % [facility] Platelet Count 222 150 - 450 [place] 10e9/L [facility] Diff Method Automated [facility] % Neutrophils 71.0 % [facility] % Lymphocytes 19.6 % [facility] % Monocytes 5.7 % [facility] % Eosinophils 3.2 % [facility] % Basophils 0.2 % [facility] % Immature 0.3 % [place] Granulocytes [facility] Absolute 4.2 1.6 - 8.3 [place] Neutrophil 10e9/L [facility] Absolute 1.2 0.8 - 5.3 [place] Lymphocytes 10e9/L [facility] Absolute 0.3 0.0 - 1.3 [place] Monocytes 10e9/L [facility] Absolute 0.2 0.0 - 0.7 [place] Eosinophils 10e9/L [facility] Absolute 0.0 0.0 - 0.2 [place] Basophils 10e9/L [facility] Abs Immature 0.0 0 - 0.4 [place] Granulocytes 10e9/L [facility] Specimen Anatomical Collection Method Collection Time Receive d Time (Source) Location / / Volume Laterality Blood specimen 02/17/2014 11:48 4 (specimen) AM CDT 12:24 PM CDT Farida Branham MD LAB - BLOOD ORDERABLES Performing Organization Address City/State/ZIP Code Phon e Number [facility] [address] [place] [phone] [facility] TSH with free T4 reflex (02/17/2014 11:48 AM CDT) P athologist Signature TSH 4.32 0.4 - 5.0 [place] mU/[facility] Specimen Anatomical Collection Method Collection Time Receive d Time (Source) Location / / Volume Laterality Blood specimen 02/17/2014 11:48 4 (specimen) AM CDT 12:24 PM CDT Farida Branham MD LAB - BLOOD ORDERABLES Performing Organization Address City/State/ZIP Code Phon e Number M [facility] [address] [place], [place] [address] [facility] EKG 12-lead, tracing only (02/17/2014 11:16 [...] 60. documented in this encounter Care Teams Can Stacker Relationship Specialty Start Date End Date Carlos Alberto Corral MD PCP - General Internal Medicine 10/15/12 09/18/[address] [address] documented as of this encounter
--- OUTSIDE RECORDS SUMMARY | 2022-08-12 11:03 | XMS_ITS | Encounter Summary ---
:1940 Author Organization [place] Address [address] [place] [address] Care Team Providers Name Role Phone Unavailable Primary Care Provider Unavailable Encounter Details Date Type Department Care Team Description 06/21/2008 Office Visit-[facility] Allergy and Asthma Provider, [facility] Clinic [address] [place] [phone] Social History Tobacco Use Types Packs/Day Years Used Date Smoking Tobacco: Never Assessed Sex Assigned at Date Recorded Not on file documented as of this encounter Progress Notes Provider, [facility] Nurse - 06/21/2008 1:02 PM CDT Train Operations Supervisor: Negra Nur Status: Signed Encounter: 21 Jun 2008 Type: Allergy Chart Note Pt pharmacy requesting enrique for pt. Dr Shay informed see new scanned orders. Rx faxed to [facility] Electronically signed by:Negra Nur RN Jun 21 2008 5:02PM PATIENT FINANCIAL REPRESENTATIVE Provider, [facility] Nurse - 06/21/2008 1:02 PM CDT Train Operations Supervisor: Negra Nur Status: Signed Encounter: 21 Jun 2008 Type: Allergy Chart Note Pt pharmacy requesting refill on fexofenadine. Med was discontinued at last appt as was all other meds for urticaria. Dr Shay infomred no new orders. Denied refill pt to call if having problems pharmacy notified Electronically signed by:Negra Nur RN Jun 21 2008 1:04PM PATIENT FINANCIAL REPRESENTATIVE documented in this encounter Plan of Treatment Not on filedocumented as of this encounter Visit Diagnoses Not on filedocumented in this encounter
--- OUTSIDE RECORDS SUMMARY | 2022-08-12 11:03 | XMS_ITS | Encounter Summary ---
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 S h Periop Services Procedures REPAIR PTOSIS BILATERAL [address] [place] [phone] Phone: Referral ID Status Reason Start Date Expiration Date Visits Requ ested Visits Authorized [id number] Closed 1 1 Encounter Details Date Type Department Care Team Description 11/02/2012 Surgery [facility] Devyn Ocampo B ILATERAL UPPER LID [place] PeriOP PTOSIS AND MECHANICAL Services [place] OPHTHALMIC PLAST PTOSIS REPAIR [address] SUR[address] [place] [phone] [address] [place] [phone] (Wo rk) Surgery Details Date/Time Status Location OR Service Patient Case Case Traum a Class Class Type Case? 11/02/12 9:15 Posted Z SD SD 20 Ophthalmology Same Day AM [...] Comments Blood Pressure 162/86 11/02/2012 11:15 AM [facility]ALTH CARE / MEDICAL [facility] T[facility]LES Pulse - - Temperature 36.7 ??C (98.1 ??F) 11/02/2012 8:43 AM HEALTH CARE / MEDICAL JOB TITLES Respiratory Rate 16 11/02/2012 11:15 AM HEALTH CARE / MEDICAL JOB TITLES Oxygen Saturation 97% 11/02/2012 11:15 AM HEALTH CARE / MEDICAL JOB TITLES Inhaled Oxygen Concentration - - Weight 89.8 kg (198 lb) 11/02/2012 8:43 AM HEALTH CARE / MEDICAL JOB TITLES Height 172.7 cm (5' 8) 11/02/2012 8:43 AM HEALTH CARE / MEDICAL JOB TITLES Body Mass Index 30.11 11/02/2012 8:43 AM HEALTH CARE / MEDICAL JOB TITLES documented in this encounter Discharge Instructions Discharge [...] not make important decisions for [address] [facility] Eyelid/Orbital Surgery Discharge Instructions Devyn Ocampo M.D. [...] that will not stop with gentle pressure. TH CARE / MEDICAL JOB TITLES documented in this encounter Medications at Time [...] Ocampo MD - 10/29/2012 10:49 AM CST TH CARE / MEDICAL JOB TITLES documented in this encounter OR Notes OR Anesthesia - Devyn Ocampo MD - 11/05/2012 1:14 PM CST TH CARE / MEDICAL JOB TITLES documented in this encounter Miscellaneous Notes Provider Notification - Susi Díaz RN - 11/02/2012 11:19 AM CST Drainage minimal at this time. TH CARE / MEDICAL JOB TITLES Provider Notification - Susi Díaz RN - 11/02/2012 11:[address] Ocampo notified of moderate drainage from right inner canthus, eye pad applied with pressure perDr. Ocampo. TH CARE / MEDICAL JOB TITLES Provider Notification - Ally Diaz RN - 11/02/2012 10:58 AM CST Moist ice dressing TH CARE / MEDICAL JOB TITLES Provider Notification - Ally Diaz RN - 11/02/2012 10:57 AM CST MOderate bloody drainage from right inner canthus, moist ice pack refreshed TH CARE / MEDICAL JOB TITLES Op Note - Devyn Ocampo MD - [...] left the operating room in stable condition. TH CARE / MEDICAL JOB TITLES documented in this encounter Plan of Treatment Not on filedocumented as of this encounter Procedures Procedure Name Priority Date/Time Associated Diagnosis Comme nts REPAIR, PTOSIS, 11/02/2012 9:26 AM HEALTH CARE / MEDICAL JOB TITLES PTOSIS AND MECH ANICAL BILATERAL PTOSIS OF BILATERAL UPPER LIDS documented in this encounter Visit Diagnoses Not on filedocumented in this encounter Administered Medications Inactive Administered Medications - up to 3 most recent administrations Medication Order MAR Action Action Date Dose Rate Site erythromycin (ROMYCIN) Given 11/02/2012 9:57 AM 1 g Operative ophthalmic ointment HEALTH CARE / MEDICAL JOB TITLES Site/Surgical S ite PRN, Starting on Thu11/02/12 at 0957, Apply within 1 hour of . May be delayed until after first ., Intra-procedure HYDROcodone-acetaminophen 5-325 MG per Given 11/02/2012 11:16 AM HEALTH CARE / MEDICAL JOB TITLES 1 tablet tablet 1 tablet 1 tablet, Oral, EVERY 6 HOURS PRN, moderate to severe pain, Starting on Thu11/02/12 at 1115, PACU lidocaine 2%-EPINEPHrine Given 11/02/2012 10:20 AM 5 mLs Operative Site/Surgical 1:200,000 injection HEALTH CARE / MEDICAL JOB TITLES Site PRN, Starting on Thu11/02/12 at 0957, Intra-procedure Given 11/02/2012 9:57 AM HEALTH CARE / MEDICAL JOB TITLES 6 mLs Opera tive Site/Surgical Site documented in this encounter Active and Recently Administered Medications Times are shown in HEALTH CARE / MEDICAL JOB TITLES. PRN Medication Order 10/31/2012 11/01/2012 11/02/2012 erythromycin [...] Intra-procedure documented in this encounter Care Teams Spool Worker Relationship Specialty Start Date End Date Carlos Alberto Corral MD PCP - General Internal Medicine 10/15/12 09/18/[address] [address] documented as of this encounter
--- OUTSIDE RECORDS SUMMARY | 2022-08-12 11:03 | XMS_ITS | Encounter Summary ---
:1940 Author Organization [place] Address [address] [place] [address] Care Team Providers Name Role Phone Unavailable Primary Care Provider Unavailable Encounter Details Date Type Department Care Team Description 01/03/2010 Historic Results INTERFACED REPORT Manuel Silvestre MD EMERGENCY PHYSIC [place]ERNAN[place] BREWER [address] [place], [place] [address] (Wo rk) Social History Tobacco Use Types Packs/Day Years Used Date Smoking Tobacco: Never Assessed Sex Assigned at Date Recorded Not on file documented as of this encounter Plan of Treatment Not on filedocumented as of this encounter Procedures Procedure Name Priority Date/Time Associated Comments Diagnosis CBC WITH PLATELETS & STAT 01/03/2010 8:50 AM R esults for this DIFFERENTIAL MAINTENANCE AND ENGINEERING MANAGER procedure are i n the results section. TSH WITH FREE T4 STAT 01/03/2010 8:50 AM Resul ts for this REFLEX MAINTENANCE AND ENGINEERING MANAGER procedure are i n the results section. TROPONIN I STAT 01/03/2010 8:50 AM Results f or this MAINTENANCE AND ENGINEERING MANAGER procedure are i n the results section. D DIMER QUANTITATIVE STAT 01/03/2010 8:50 AM R esults for this MAINTENANCE AND ENGINEERING MANAGER procedure are i n the results section. COMPREHENSIVE STAT 01/03/2010 8:50 AM Results for this METABOLIC PANEL MAINTENANCE AND ENGINEERING MANAGER procedure ar e in the results section. documented in this encounter Results (ABNORMAL) CBC with platelets differential (01/03/2010 8:50 AM MAINTENANCE AND ENGINEERING MANAGER) [facility] Method Time Signature MCV 92 78 - [...] Volume Laterality 01/03/2010 8:50 AM 0 8:59 MAINTENANCE AND ENGINEERING MANAGER AM MAINTENANCE AND ENGINEERING MANAGER Ciro Silvestre MD LAB - BLOOD ORDERABLES Performing Organization Address City/State/ZIP Code Phon e Number [place] D dimer quantitative (01/03/2010 8:50 AM MAINTENANCE AND ENGINEERING MANAGER) athologist Signature D Dimer 0.4 0.0 - 0.50 [place] ug/ml FEU Specimen Anatomical Collection Method Collection Time Receive d Time (Source) Location / / Volume Laterality 01/03/2010 8:50 AM 0 8:59 MAINTENANCE AND ENGINEERING MANAGER AM MAINTENANCE AND ENGINEERING MANAGER Ciro Silvestre MD LAB - BLOOD ORDERABLES Performing Organization Address City/State/ZIP Code Phon e Number [place] (ABNORMAL) Comprehensive metabolic panel (01/03/2010 8:50 AM MAINTENANCE AND ENGINEERING MANAGER) athologist Signature Sodium 139 133 - 144 [...] Volume Laterality 01/03/2010 8:50 AM 0 8:59 MAINTENANCE AND ENGINEERING MANAGER AM MAINTENANCE AND ENGINEERING MANAGER Ciro Silvestre MD LAB - BLOOD ORDERABLES Performing Organization Address City/State/ZIP Code Phon e Number [place] Troponin I (01/03/2010 8:50 AM MAINTENANCE AND ENGINEERING MANAGER) P athologist Signature Troponin I ES 0.029 0.000 - [place] 0.034 ug/L Specimen Anatomical Collection Method Collection Time Receive d Time (Source) Location / / Volume Laterality 01/03/2010 8:50 AM 0 8:59 MAINTENANCE AND ENGINEERING MANAGER AM MAINTENANCE AND ENGINEERING MANAGER Ciro Silvestre MD LAB - BLOOD ORDERABLES Performing Organization Address City/State/ZIP Code Phon e Number [place] TSH with free T4 reflex (01/03/2010 8:50 AM MAINTENANCE AND ENGINEERING MANAGER) athologist Signature TSH 4.82 0.4 - 5.0 [place] mU/L Specimen Anatomical Collection Method Collection Time Receive d Time (Source) Location / / Volume Laterality 01/03/2010 8:50 AM 0 8:59 MAINTENANCE AND ENGINEERING MANAGER AM MAINTENANCE AND ENGINEERING MANAGER Ciro Silvestre MD LAB - BLOOD ORDERABLES Performing Organization Address City/State/ZIP Code Phon e Number [place] documented in this encounter Visit Diagnoses Not on filedocumented in this encounter
--- OUTSIDE RECORDS SUMMARY | 2022-08-12 11:03 | XMS_ITS | Encounter Summary ---
:1940 Author Organization [place] Address [address] [place] [address] Care Team Providers Name Role Phone Carlos Alberto Corral MD Primary Care Provider Encounter Details Date Type Department Care Team Description 01/09/2010 Historic Results [facility] Heart Unknown, [facility] [address] [place] [phone] Social History Tobacco Use Types Packs/Day [...] SCAN - ARCHIVE (01/09/2010 12:00 AM CDT) Anatomical Region Laterality Modality Other Specimen (Source) Anatomical Location Collection Method / Collectio n Time Received Time / Laterality Volume 01/09/2010 Narrative This result has an attachment that is no t available. Provider Scan IMG NM ORDERABLES documented in this encounter Visit Diagnoses Not on filedocumented in this encounter Care Teams Wash[place] Hand Relationship Specialty Start Date End Date Carlos Alberto Corral MD PCP - General Internal Medicine 10/15/12 09/18/[address] [address] documented as of this encounter
--- OUTSIDE RECORDS SUMMARY | 2022-08-12 11:03 | XMS_ITS | Encounter Summary ---
:1940 Author Organization [place] Address [address] [place] [address] Care Team Providers Name Role Phone Unavailable Primary Care Provider Unavailable Encounter Details Date Type Department Care Team Description 02/16/2008 Office Visit-[facility] Allergy and Asthma Unknown, [facility] [address] [place] [phone] Social History Tobacco Use Types Packs/Day Years Used Date Smoking Tobacco: Never Assessed Sex Assigned at Date Recorded Not on file documented as of this encounter Progress Notes Unknown, Provider - 02/16/2008 12:45 PM CDT Vending Route Servicer: Cee Mccann Status: Final Encounter: 16 Feb 2008 Type: Allergy Nurse Note Reason For Visit REBEKAH XIONG is a 67 year old male present today for urticaria and angioedema follow up. Do you have any other appointments of any type today within the [facility] system? (this includes clinic appt's, Imaging, labs, [...] By: Daylin Mccann RN; 02/16/2008 12:17 PM FREE LANCE MODEL. documented in this encounter Plan of Treatment Not on filedocumented as of this encounter Visit Diagnoses Not on filedocumented in this encounter
--- OUTSIDE RECORDS SUMMARY | 2022-08-12 11:03 | XMS_ITS | Encounter Summary ---
:1940 Author Organization [place] Address [facility] [place] [address] Care Team Providers Name Role Phone Unavailable Primary Care Provider Unavailable Encounter Details Date Type Department Care Team Description 01/03/2010 Emergency room [facility] Se yarelis Silvestre MD [facility] EMERGENCY PHY JOHAN PA Results [address] [place], [place] [phone] (Wo rk) Social History Tobacco Use Types Packs/Day Years Used Date Smoking Tobacco: Never Assessed Sex Assigned at Date Recorded Not on file documented as of this encounter Progress Notes Ciro Silvestre - 01/04/2010 5:15 PM PROGRAM DIRECTOR SUBSTANCE ABUSE FINAL CHIEF COMPLAINT: Rapid heart rate, shortness of breath and lightheadedness. HISTORY OF PRESENT ILLNESS: Rebekah Xiong is a 69-year-old male who comes in by private vehicle after driving himself here because of feeling his heart racing and feeling a little short of breath costa little lightheaded. This all started about 6:30 this morning and [facility] He denies any chest pain, no [...] rapid heart rate. He was connected to quality assurance monitor and pulse oximetry monitor. He had oxygen [...] discharged home with close follow up with [facility] as well as his own primary doctor, [...] tachycardia. Electronically signed on 01/04/2010 17:14 by CIRO SILVESTRE MD MT: [id number] Name: REBEKAH XIONG MRN: [id number] Account: [id number] : 1940 Visit Date: 01/03/2010 Document: [id number] cc: Carlos Alberto Corral MD [facility] RAM DIRECTOR SUBSTANCE ABUSE documented in this encounter Plan of Treatment Not on filedocumented as of this encounter Visit Diagnoses Not on filedocumented in this encounter
--- OUTSIDE RECORDS SUMMARY | 2022-08-12 11:03 | XMS_ITS | Encounter Summary ---
:1940 Author Organization [place] Address [address] [place] [address] Care Team Providers Name Role Phone Carlos Alberto Corral MD Primary Care Provider Reason for Visit (Routine) - Closed Specialty Diagnoses / Procedures Referred By Contact Refer red To Contact Cardiology Diagnoses ECHOCARDIOGRAPHY COMPLETE W/O CONTRAST* Zz Sh Cardiolo gy Img Procedures RADIOLOGY [address] [place] [address] Phone: Referral ID Status Reason Start Date Expiration Date Visits Requ ested Visits Authorized [id number] Closed 03/03/2014 03/03/2015 1 1 Encounter Details Date Type Department Care Team Description 03/06/2014 Hospital Encounter [facility] Suzi Corral MD Radiology - [facility] Heart [facility] [place] [address] [place] [address] [place] [address] [phone] Social History Tobacco Use Types Packs/Day Years [...] COMPLETE WITH OPTISON (03/06/2014 1:05 PM CDT) [facility] Method Time Signature [facility] RADIOLOGY Interpretation Summary [...] P mmHg Interpreting Physician: ??Devyn Gamez MD electronicall y signed on 03-06-2014 17:13:33 Anatomical Region Laterality Modality Echocardiography Specimen (Source) Anatomical Collection Method Collection Time Re ceived Time Location / / Volume Laterality 03/06/2014 1:05 PM CDT Jey Parks MD CV ECHO ORDERABLES documented in this encounter Visit Diagnoses Not on filedocumented in this encounter Care Teams Human Services Assistant Relationship Specialty Start Date End Date Carlos Alberto Corral MD PCP - General Internal Medicine 10/15/12 09/18/[address] [address] documented as of this encounter
--- OUTSIDE RECORDS SUMMARY | 2022-08-12 11:03 | XMS_ITS | Encounter Summary ---
:1940 Author Organization [facility] Address [address] [place] [address] Care Team Providers Name Role Phone Carlos Alberto Corral MD Primary Care Provider Reason for Visit Reason Onset Date Comments Heart Problem 04/11/2014 Encounter Details Date Type Department Care Team Description 04/11/2014 Telephone [facility] Sleep Omar Berkowitz, Heart Problem Centers [place] LLOYD [address] [facility] [address] [facility] [address] [place] [phone] [place] [phone] (Wo rk) Social History Tobacco Use Types [...] on filedocumented in this encounter Care Teams Quality Control Supervisor Relationship Specialty Start Date End Date Carlos Alberto Corral MD PCP - General Internal Medicine 10/15/12 09/18/[address] [address] documented as of this encounter
--- OUTSIDE RECORDS SUMMARY | 2022-08-12 11:03 | XMS_ITS | Encounter Summary ---
:1940 Author Organization [place] Address [address] [place] [address] Care Team Providers Name Role Phone Carlos Alberto Corral MD Primary Care Provider Reason for Visit Reason Comments Heart Problem Encounter Details Date Type Department Care Team Description 03/08/2014 Care Coordination [facility] Sleep Terrell Faust Heart Problem Centers [place] Rg MD [address] [facility] [address] [place] [address] [address] [place] [place] [address] [place] [phone] Social History Tobacco Use Types Packs/Day Years [...] - 03/08/2014 4:59 PM CDT Scan of [facility] heart referral, H&P Dr Parks, [...] dysrhythmias documented in this encounter Care Teams Security Messenger Relationship Specialty Start Date End Date Carlos Alberto Corral MD PCP - General Internal Medicine 10/15/12 09/18/[address] [address] documented as of this encounter
--- OUTSIDE RECORDS SUMMARY | 2022-08-12 11:04 | XMS_ITS | Encounter Summary ---
:1940 Author Organization [place] Address [address] [place] [address] Care Team Providers Name Role Phone Unavailable Primary Care Provider Unavailable Encounter Details Date Type Department Care Team Description 03/12/2005 Historic [facility] Preet Mandel [facility] Radiation EMD Oncology [address] [facility] [address] [phone] [place], 1st Floor (Work) [place] [phone] Social History Tobacco Use Types Packs/Day Years Used Date Smoking Tobacco: Never Assessed Sex Assigned at Date Recorded Not on file documented as of this encounter Progress Notes Eron Mandel MD - 10/01/2011 2:37 AM VASCULAR SURGEON PROBLEM:Prostate cancer. Larisa Score 6. PSA 4.8. [...] participate in his care. ERON MANDEL MD Home Service Technician Radiation Oncology Dictated by: MD Hansel NOE: 05/01/2005 11:36 MT: [email or web address] Document: [id number] CC: MD SAGAR HENRY MD CHARLES MEYERS, MD LCN: [email or web address]_[id number] DSC: 03/12/2005 [facility] A Division of [place], [place] Name: MR#: : ELVIRA: REBEKAH XIONG [id number] 03/12/2005 THERAPEUTIC RADIOLOGY PROGRESS/FOLLOW UP NOTE Page 1 of 1 ULAR SURGEON documented in this encounter Plan of Treatment Not on filedocumented as of this encounter Visit Diagnoses Not on filedocumented in this encounter
--- OUTSIDE RECORDS SUMMARY | 2022-08-12 11:04 | XMS_ITS | Encounter Summary ---
:1940 Author Organization [facility] Address [address] [place] [address] Care Team Providers Name Role Phone Unavailable Primary Care Provider Unavailable Encounter Details Date Type Department Care Team Description 01/08/2021 Immunization Department of [facility] For COVID-19 Medicine, Tony Rojas M.D. Vaccine Immunization Building, in [address] [place] [address] 134 [facility] [address] [place], [place] [phone] [address] (Work) [phone] Social History Tobacco Use Types Packs/Day Years Used Date Smoking Tobacco: Never Assessed Sex Assigned at Date Recorded Not on file documented as of this encounter Plan of Treatment Not on filedocumented as of this encounter Visit Diagnoses Diagnosis Encounter For COVID-19 Vaccine Immunizat ion documented in this encounter
--- OUTSIDE RECORDS SUMMARY | 2022-08-12 11:04 | XMS_ITS | Encounter Summary ---
:1940 Author Organization [facility] Address [address] [place] [address] Care Team Providers Name Role Phone Unavailable Primary Care Provider Unavailable Encounter Details Date Type Department Care Team Description 11/01/2004 Historic Results Allergy and Asthma Ortiz Shay Phillips-Wangensteen MD Building XXX RESIGNED XXX 2nd Floor, Clinic 2A [address] [id number] [facility] [address] [place], [place] [address] [phone] Social History Tobacco Use Types Packs/Day Years Used Date Smoking Tobacco: Never Assessed Sex Assigned at Date Recorded Not on file documented as of this encounter Plan of Treatment Not on filedocumented as of this encounter Procedures Procedure Name Priority Date/Time Associated Comments Diagnosis C-REACTIVE PROTEIN Routine 11/01/2004 5:18 PM Res ults for this FILTER PLANT OPERATOR procedure are i n the results section. HEMOGRAM DIFFERENTIAL Routine 11/01/2004 5:18 PM Results for this AND PLATELET FILTER PLANT OPERATOR procedure are i n the results section. TRYPTASE Routine 11/01/2004 5:18 PM Results f or this FILTER PLANT OPERATOR procedure are i n the results section. THYROID PEROXIDASE Routine 11/01/2004 5:18 PM Res ults for this ANTIBODY FILTER PLANT OPERATOR procedure are i n the results section. PLATELET COUNT Routine 11/01/2004 5:18 PM Results for this FILTER PLANT OPERATOR procedure are i n the results section. IGE Routine 11/01/2004 5:18 PM Results f or this FILTER PLANT OPERATOR procedure are i n the results section. HEPATIC FUNCTION PANEL Routine 11/01/2004 5:18 PM Results for this FILTER PLANT OPERATOR procedure are i n the results section. COMPLEMENT TOTAL Routine 11/01/2004 5:18 PM Resul ts for this FILTER PLANT OPERATOR procedure are i n the results section. COMPLEMENT C3 Routine 11/01/2004 5:18 PM Results for this FILTER PLANT OPERATOR procedure are i n the results section. ANTINUCLEAR ANTIBODY Routine 11/01/2004 5:18 PM R esults for this SCREEN BY EIA FILTER PLANT OPERATOR procedure are in the results section. ANTI THYROGLOBULIN Routine 11/01/2004 5:18 PM Res ults for this ANTIBODY FILTER PLANT OPERATOR procedure are i n the results section. documented in this encounter Results Anti thyroglobulin antibody (11/01/2004 5:18 PM FILTER PLANT OPERATOR) Analysis Performed At Patho logist Time Signature Thyroglobulin <20 <40 IU/mL MISYS Antibody Specimen Anatomical Collection Method Collection Time Receive d Time (Source) Location / / Volume Laterality 11/01/2004 5:18 PM 5 5:09 FILTER PLANT OPERATOR PM FILTER PLANT OPERATOR Ortiz Shay MD LAB - BLOOD ORDERABLES Performing Organization Address City/State/ZIP Code Phon e Number MISYS Hepatic panel (11/01/2004 5:18 PM FILTER PLANT OPERATOR) P athologist Signature AST 35 0 - 55 [...] Volume Laterality 11/01/2004 5:18 PM 5 5:09 FILTER PLANT OPERATOR PM FILTER PLANT OPERATOR Ortiz Shay MD LAB - BLOOD ORDERABLES Performing Organization Address City/State/ZIP Code Phon e Number MISYS Complement C3 (11/01/2004 5:18 PM FILTER PLANT OPERATOR) P athologist Signature Complement C3 115 90 - 200 MISYS mg/dL Specimen Anatomical Collection Method Collection Time Receive d Time (Source) Location / / Volume Laterality 11/01/2004 5:18 PM 5 5:09 FILTER PLANT OPERATOR PM FILTER PLANT OPERATOR Ortiz Shay MD LAB - BLOOD ORDERABLES Performing Organization Address [facility] Phon e Number MISYS Complement total (11/01/2004 5:18 PM FILTER PLANT OPERATOR) athologist Signature Complement CH50 120 MISYS Total Comment: Unit: (Note) REFERENCE INTERVAL: Complement Activity, Total EIA Less than 60 Units ........ Low 60-144 Units .............. Normal 145 Units or greater ...... High The above test was performed at: [facility], [address] [place] [address] Specimen Anatomical Collection Method Collection Time Receive d Time (Source) Location / / Volume Laterality 11/01/2004 5:18 PM 5 5:09 FILTER PLANT OPERATOR PM FILTER PLANT OPERATOR Ortiz Shay MD LAB - BLOOD ORDERABLES Performing Organization Address [facility] Phon e Number MISYS C-Reactive protein (11/01/2004 5:18 PM FILTER PLANT OPERATOR) athologist [facility] C-Reactive 0.27 0.00 - 0.80 MISYS Protein mg/dL Specimen Anatomical Collection Method Collection Time Receive d Time (Source) Location / / Volume Laterality 11/01/2004 5:18 PM 5 5:09 FILTER PLANT OPERATOR PM FILTER PLANT OPERATOR Ortiz Shay MD LAB - BLOOD ORDERABLES Performing Organization Address [facility] Phon e Number MISYS Antinuclear antibody screen by EIA (11/01/2004 5:18 PM FILTER PLANT OPERATOR) athologist Signature GABE Screen by 2.5 MISYS EIA Comment: Interpretation: ??Weakly Positive Follow-up testing is not recommended un less clinically indicated. ??GABE samples are retained in the Protein Lab for 30 days. ??Please contact the laboratory to request additional tests. Specimen Anatomical Collection Method Collection Time Receive d Time (Source) Location / / Volume Laterality 11/01/2004 5:18 PM 5 5:09 FILTER PLANT OPERATOR PM FILTER PLANT OPERATOR Ortiz Shay MD LAB - BLOOD ORDERABLES Performing Organization Address [facility] Phon e Number MISYS Hemogram differential and platelet (11/01/2004 5:18 PM FILTER PLANT OPERATOR) Patholo gist Method Time Signature MCV 89 78 [...] Volume Laterality 11/01/2004 5:18 PM 5 5:09 FILTER PLANT OPERATOR PM FILTER PLANT OPERATOR Ortiz Shay MD LAB - BLOOD ORDERABLES Performing Organization Address City/State/ZIP [facility] Phon e Number MISYS (ABNORMAL) IgE (11/01/2004 5:18 PM FILTER PLANT OPERATOR) P athologist Signature IGE 592 (H) 0 - 114 MISYS KIU/L Specimen Anatomical Collection Method Collection Time Receive d Time (Source) Location / / Volume Laterality 11/01/2004 5:18 PM 5 5:09 FILTER PLANT OPERATOR PM FILTER PLANT OPERATOR Ortiz Shay MD LAB - BLOOD ORDERABLES Performing Organization Address City/State/ZIP Code Phon e Number MISYS (ABNORMAL) Thyroid peroxidase antibody (11/01/2004 5:18 PM FILTER PLANT OPERATOR) P athologist Signature Thyroid 169 (H) <35 IU/mL MISYS Peroxidase Antibody Specimen Anatomical Collection Method Collection Time Receive d Time (Source) Location / / Volume Laterality 11/01/2004 5:18 PM 5 5:09 FILTER PLANT OPERATOR PM FILTER PLANT OPERATOR Ortiz Shay MD LAB - BLOOD ORDERABLES Performing Organization Address City/[facility] Code Phon e Number MISYS Tryptase (11/01/2004 5:18 PM FILTER PLANT OPERATOR) P athologist Signature Tryptase 8.8 MISYS Comment: Reference range: 0.4 to 10.9 Unit: ug/L (Note) TEST INFORMATION: Tryptase This test uses a kit designated by the mike aldana as for research use, not for clinical use. The performance characteristics of this test were valida beltran by [employer] The U.S. Food and Kojo g Administration (FDA) has not approved this test. The re sults are not intended to be used as the sole means fo r clinical diagnosis or patient management decision s. [facility] is authorized under Clinical Laboratory Imp rovement Amendments (CLIA) and by all states to p erform high- complexity testing. The above test was performed at: [facility], [address] [place] [address] Specimen Anatomical Collection Method Collection Time Receive d Time (Source) Location / / Volume Laterality 11/01/2004 5:18 PM 5 5:09 FILTER PLANT OPERATOR PM FILTER PLANT OPERATOR Ortiz Shay MD LAB - BLOOD ORDERABLES Performing Organization Address City/State/[facility] Phon e Number MISYS Platelet count (11/01/2004 5:18 PM FILTER PLANT OPERATOR) athologist Signature Platelet Count 251 150 - 450 MISYS 10e9/L Specimen Anatomical Collection Method Collection Time Receive d Time (Source) Location / / Volume Laterality 11/01/2004 5:18 PM 5 5:53 FILTER PLANT OPERATOR PM FILTER PLANT OPERATOR Ortiz Shay MD LAB - BLOOD ORDERABLES Performing Organization Address City/[facility] Code Phon e Number MISYS documented in this encounter Visit Diagnoses Not on filedocumented in this encounter
--- OUTSIDE RECORDS SUMMARY | 2022-08-12 11:04 | XMS_ITS | Encounter Summary ---
:1940 Author Organization [facility] Address [address] [facility] [place] [address] Care Team Providers Name Role Phone Unavailable Primary Care Provider Unavailable Encounter Details Date Type Department Care Team Description 02/16/2008 Specialty Clinic Note [facility] Eron Mandel (Harvesting Manager) Oncology MD [place] [address] [address] [place], [place] [address] Social History Tobacco Use Types Packs/Day Years [...] is now currently taking classes at the [employer] [facility] in [facility]. OBJECTIVE: The patient is alert and oriented [...] As dictated by ULYSSES LR MD MT: [email or web address] Name: REBEKAH XIONG Account: [id number] : 1940 Visit Date: 02/16/2008 Document: [id number] cc: Ko Aguirre MD documented in this encounter Plan of Treatment Not on filedocumented as of this encounter Visit Diagnoses Not on filedocumented in this encounter
--- OUTSIDE RECORDS SUMMARY | 2022-08-12 11:04 | XMS_ITS | Encounter Summary ---
:1940 Author Organization [facility] Address [address] [place] [address] Care Team Providers Name Role Phone Carlos Alberto Corral MD Primary Care Provider Encounter Details Date Type Department Care Team Description 11/22/2002 Historic Results [facility] Heart Unknown, [address] [place] [address] Social History Tobacco Use Types Packs/Day Years Used Date Smoking Tobacco: Never Assessed Sex Assigned at Date Recorded Not on file documented as of this encounter Plan of Treatment Not on filedocumented as of this encounter Procedures Procedure Name Priority Date/Time Associated Diagnosis Comme nts ECHO CARDIAC - HIM SCAN 11/22/2002 12:00 AM STRATEGIC MARKETING LEADER - ARCHIVE documented in this encounter Results ECHO CARDIAC - HIM SCAN - ARCHIVE (11/22/2002 12:00 AM STRATEGIC MARKETING LEADER) Anatomical Region Laterality Modality Echocardiography Specimen (Source) Anatomical Location Collection Method / Collectio n Time Received Time / Laterality Volume 11/22/2002 Narrative This result has an attachment that is no t available. Provider Scan CV ECHO ORDERABLES documented in this encounter Visit Diagnoses Not on filedocumented in this encounter Care Teams Deputy Head Relationship Specialty Start Date End Date Carlos Alberto Corral MD PCP - General Internal Medicine 10/15/12 09/18/[address] [address] documented as of this encounter
--- OUTSIDE RECORDS SUMMARY | 2022-08-12 11:04 | XMS_ITS | Encounter Summary ---
:1940 Author Organization [facility] Address [address] [place] [address] Care Team Providers Name Role Phone Unavailable Primary Care Provider Unavailable Encounter Details Date Type Department Care Team Description 01/03/2008 Historic Results Allergy and Asthma Ortiz Shay Phillips-Wangensteen MD Building XXX RESIGNED XXX 2nd Floor, Clinic 2A [address] [address] [facility] [address] [place] [address] [phone] Social History Tobacco Use Types Packs/Day Years [...] Comment: Interp: Class 0 - Negative, Con log sorting supervisor 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 Specimen Anatomical Collection Method Collection [...] Comment: Interp: Class 0 - Negative, Con log sorting supervisor 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 Specimen Anatomical Collection Method Collection Time Receive d Time (Source) Location / / Volume Laterality 01/03/2008 12:09 01/07/2008 8:13 PM CDT AM CDT Ortiz Shay MD LAB - BLOOD ORDERABLES Performing Organization Address City/[facility]/ZIP Code Phon e Number MISYS Allergen peanut IgE (01/03/2008 12:09 PM CDT) P athologist Signature Allergen Peanut <0.35 <0.35 MISYS KU(A)/L Comment: Interp: Class 0 - Negative, Con log sorting supervisor 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 Specimen Anatomical Collection Method Collection Time Receive d Time (Source) Location / / Volume Laterality 01/03/2008 12:09 01/07/2008 8:13 PM CDT AM CDT Ortiz Shay MD LAB - BLOOD ORDERABLES Performing Organization Address City/[facility] Code Phon e Number MISYS Allergen soybean IgE (01/03/2008 12:09 PM CDT) P athologist Signature Allergen <0.35 <0.35 MISYS Soybean IgE KU(A)/L Comment: Interp: Class 0 - Negative, Con log sorting supervisor 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 Specimen Anatomical Collection Method Collection Time Receive d Time (Source) Location / / Volume Laterality 01/03/2008 12:09 01/07/2008 8:13 PM CDT AM CDT Ortiz Shay MD LAB - BLOOD ORDERABLES Performing Organization Address City/[facility] Code Phon e Number MISYS Allergen milk IgE (01/03/2008 12:09 PM CDT) P athologist Signature Allergen Milk <0.35 <0.35 MISYS KU(A)/L Comment: Interp: Class 0 - Negative, Con log sorting supervisor 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 Specimen Anatomical Collection Method Collection Time Receive d Time (Source) Location / / Volume Laterality 01/03/2008 12:09 01/07/2008 8:13 PM CDT AM CDT Ortiz Shay MD LAB - BLOOD ORDERABLES Performing Organization Address City/[facility] Phon e Number MISYS (ABNORMAL) Allergen crab [...] LAB - BLOOD ORDERABLES Performing Organization Address [facility] Code Phon e Number MISYS (ABNORMAL) Allergen [...] LAB - BLOOD ORDERABLES Performing Organization Address [facility] Phon e Number MISYS Allergen tomato IgE (01/03/2008 12:09 PM CDT) P athologist Signature Allergen Tomato <0.35 <0.35 MISYS KU(A)/L Comment: Interp: Class 0 - Negative, Con log sorting supervisor 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 Specimen Anatomical Collection Method Collection Time Receive d Time (Source) Location / / Volume Laterality 01/03/2008 12:09 01/07/2008 8:13 PM CDT AM CDT Ortiz Shay MD LAB - BLOOD ORDERABLES Performing Organization Address [facility] Phon e Number MISYS Allergen codfish IgE (01/03/2008 12:09 PM CDT) P athologist Signature Allergen <0.35 <0.35 MISYS Fish(Cod) KU(A)/L Comment: Interp: Class 0 - Negative, Con log sorting supervisor 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 Specimen Anatomical Collection Method Collection Time Receive d Time (Source) Location / / Volume Laterality 01/03/2008 12:09 01/07/2008 8:13 PM CDT AM CDT Ortiz Shay MD LAB - BLOOD ORDERABLES Performing Organization Address [facility] Code Phon e Number MISYS Allergen orange IgE (01/03/2008 12:09 PM CDT) P athologist Signature Allergen Converse <0.35 <0.35 MISYS KU(A)/L Comment: Interp: Class 0 - Negative, Con log sorting supervisor 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 Specimen Anatomical Collection Method Collection Time Receive d Time (Source) Location / / Volume Laterality 01/03/2008 12:09 01/07/2008 8:13 PM CDT AM CDT Ortiz Shay MD LAB - BLOOD ORDERABLES Performing Organization Address City/[facility]/ZIP Code Phon e Number MISYS Allergen wheat IgE (01/03/2008 12:09 PM CDT) P athologist Signature Allergen Wheat <0.35 <0.35 MISYS KU(A)/L Comment: Interp: Class 0 - Negative, Con log sorting supervisor 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 Specimen Anatomical Collection Method Collection Time Receive d Time (Source) Location / / Volume Laterality 01/03/2008 12:09 01/07/2008 8:13 PM CDT AM CDT Ortiz Shay MD LAB - BLOOD ORDERABLES Performing Organization Address City/[facility]/ZIP Code Phon e Number MISYS Allergen tuna IgE (01/03/2008 12:09 PM CDT) P athologist Signature Allergen Tuna <0.35 <0.35 MISYS KU(A)/L Comment: Interp: Class 0 - Negative, Con log sorting supervisor 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 Specimen Anatomical Collection Method Collection Time Receive d Time (Source) Location / / Volume Laterality 01/03/2008 12:09 01/07/2008 8:13 PM CDT AM CDT Ortiz Shay MD LAB - BLOOD ORDERABLES Performing Organization Address City/[facility]/ZIP Code Phon e Number MISYS Allergen barley IgE (01/03/2008 12:09 PM CDT) P athologist Signature Allergen Barley <0.35 <0.35 MISYS KU(A)/L Comment: Interp: Class 0 - Negative, Con log sorting supervisor 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 Specimen Anatomical Collection Method Collection Time Receive d Time (Source) Location / / Volume Laterality 01/03/2008 12:09 01/07/2008 8:13 PM CDT AM CDT Ortiz Shay MD LAB - BLOOD ORDERABLES Performing Organization Address City/[facility] Code Phon e Number MISYS Allergen corn IgE (01/03/2008 12:09 PM CDT) P athologist Signature Allergen Harrell <0.35 <0.35 MISYS KU(A)/L Comment: Interp: Class 0 - Negative, Con log sorting supervisor 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 Specimen Anatomical Collection Method Collection Time Receive d Time (Source) Location / / Volume Laterality 01/03/2008 12:01/07/2008 8:13 PM CDT AM CDT Ortiz Shay MD LAB - BLOOD ORDERABLES Performing Organization Address [facility] Phon e Number MISYS Allergen rice IgE (01/03/2008 12:09 PM CDT) P athologist Signature Allergen Rice <0.35 <0.35 MISYS KU(A)/L Comment: Interp: Class 0 - Negative, Con log sorting supervisor 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 Specimen Anatomical Collection Method Collection Time Receive d Time (Source) Location / / Volume Laterality 01/03/2008 12:01/07/2008 8:13 PM CDT AM CDT Ortiz Shay MD LAB - BLOOD ORDERABLES Performing Organization Address City/[facility] Phon e Number MISYS documented in this encounter Visit Diagnoses Not on filedocumented in this encounter
--- OUTSIDE RECORDS SUMMARY | 2022-08-12 11:04 | XMS_ITS | Encounter Summary ---
:1940 Author Organization [facility] Address [address] [place] [address] Care Team Providers Name Role Phone Unavailable Primary Care Provider Unavailable Encounter Details Date Type Department Care Team Description 03/06/2005 Historic Results [facility] Irina Mandel, Radiation Oncology [place]LO[place]D [address] [address] [place] [address] Social History Tobacco Use Types Packs/Day [...] PSA tumor marker (03/06/2005 7:23 AM CDT) athologist Signature PSA 0.29 0 - 4 [...]
--- OUTSIDE RECORDS SUMMARY | 2022-08-12 11:04 | XMS_ITS | Encounter Summary ---
:1940 Author Organization [facility] Address [address] [place] [address] Care Team Providers Name Role Phone Unavailable Primary Care Provider Unavailable Encounter Details Date Type Department Care Team Description 12/06/2007 Historic Results Allergy and Asthma Ortiz Shay Phillips-Wangensteen MD Building XXX RESIGNED XXX 2nd Floor, Clinic 2A [address] [address] [facility] [address] [place], [place] [address] [phone] Social History Tobacco Use Types Packs/Day Years Used Date Smoking Tobacco: Never Assessed Sex Assigned at Date Recorded Not on file documented as of this encounter Plan of Treatment Not on filedocumented as of this encounter Procedures Procedure Name Priority Date/Time Associated Comments Diagnosis TSH Routine 12/06/2007 10:08 Results for this AM ASSEMBLER METAL FURNITURE procedure are i n the results section. TRYPTASE Routine 12/06/2007 10:08 Results for this AM ASSEMBLER METAL FURNITURE procedure are i n the results section. THYROID PEROXIDASE Routine 12/06/2007 10:08 Resul ts for this ANTIBODY AM ASSEMBLER METAL FURNITURE procedure are i n the results section. T4 FREE Routine 12/06/2007 10:08 Results for this AM ASSEMBLER METAL FURNITURE procedure are i n the results section. T3 TOTAL Routine 12/06/2007 10:08 Results for this AM ASSEMBLER METAL FURNITURE procedure are i n the results section. IGE Routine 12/06/2007 10:08 Results for this AM ASSEMBLER METAL FURNITURE procedure are i n the results section. COMPLEMENT TOTAL Routine 12/06/2007 10:08 Results for this AM ASSEMBLER METAL FURNITURE procedure are i n the results section. ANTINUCLEAR ANTIBODY Routine 12/06/2007 10:08 Res ults for this SCREEN BY EIA AM ASSEMBLER METAL FURNITURE procedure are in the results section. documented in this encounter Results Complement total (12/06/2007 10:08 AM ASSEMBLER METAL FURNITURE) athologist Signature Complement CH50 142 MISYS Total Comment: Reference range: 60 to 144 Unit: (Note) REFERENCE INTERVAL: Complement Activity, Total EIA 59 Units or less .......... Low 60-144 Units .............. Normal 145 Units or greater ...... High Performed by [employer], [address] [place] [address], [facility] [place] [address] [email or web address], ??Kenny Hoffmann MD - Lab. Director Specimen Anatomical Collection Method Collection Time Receive d Time (Source) Location / / Volume Laterality 12/06/2007 10:08 12/06/2007 9:57 AM ASSEMBLER METAL FURNITURE AM ASSEMBLER METAL FURNITURE Ortiz Shay MD LAB - BLOOD ORDERABLES Performing Organization Address [facility] Phon e Number MISYS Antinuclear antibody screen by EIA (12/06/2007 10:08 AM ASSEMBLER METAL FURNITURE) athologist [facility] GAEB Screen by 3.3 MISYS EIA Comment: Interpretation: ??Positive GABE screen results > 3 are significant and follow-up testing is recommended. GABE samples are retained in the Protein Lab for 30 days. ??Please contact the laboratory to request additional tests. Specimen Anatomical Collection Method Collection Time Receive d Time (Source) Location / / Volume Laterality 12/06/2007 10:08 12/06/2007 9:57 AM ASSEMBLER METAL FURNITURE AM ASSEMBLER METAL FURNITURE Ortiz Shay MD LAB - BLOOD ORDERABLES Performing Organization Address City/[facility] Code Phon e Number MISYS T4 free (12/06/2007 10:08 AM ASSEMBLER METAL FURNITURE) athologist Signature T4 Free 1.38 0.70 - 1.85 MISYS ng/dL Specimen Anatomical Collection Method Collection Time Receive d Time (Source) Location / / Volume Laterality 12/06/2007 10:08 12/06/2007 9:57 AM ASSEMBLER METAL FURNITURE AM ASSEMBLER METAL FURNITURE Ortiz Shay MD LAB - BLOOD ORDERABLES Performing Organization Address [facility] Phon e Number MISYS (ABNORMAL) IgE (12/06/2007 10:08 AM ASSEMBLER METAL FURNITURE) P athologist Signature IGE 462 (H) 0 - 114 MISYS KIU/L Specimen Anatomical Collection Method Collection Time Receive d Time (Source) Location / / Volume Laterality 12/06/2007 10:08 12/06/2007 9:57 AM ASSEMBLER METAL FURNITURE AM ASSEMBLER METAL FURNITURE Ortiz Shay MD LAB - BLOOD ORDERABLES Performing Organization Address [facility] Code Phon e Number MISYS T3 total (12/06/2007 10:08 AM ASSEMBLER METAL FURNITURE) [facility] gist Method Time Signature Triiodothyronine 121 60 - 181 MISYS (T3) ng/dL Specimen Anatomical Collection Method Collection Time Receive d Time (Source) Location / / Volume Laterality 12/06/2007 10:08 12/06/2007 9:57 AM ASSEMBLER METAL FURNITURE AM ASSEMBLER METAL FURNITURE Ortiz Shay MD LAB - BLOOD ORDERABLES Performing Organization Address [facility] Phon e Number MISYS (ABNORMAL) Thyroid peroxidase antibody (12/06/2007 10:08 AM ASSEMBLER METAL FURNITURE) P athologist Signature Thyroid 74 (H) <35 IU/mL MISYS Peroxidase Antibody Specimen Anatomical Collection Method Collection Time Receive d Time (Source) Location / / Volume Laterality 12/06/2007 10:08 12/06/2007 9:57 AM ASSEMBLER METAL FURNITURE AM ASSEMBLER METAL FURNITURE Ortiz Shay MD LAB - BLOOD ORDERABLES Performing Organization Address [facility] Phon e Number MISYS Tryptase (12/06/2007 10:08 AM ASSEMBLER METAL FURNITURE) P athologist Signature Tryptase 6.3 MISYS Comment: Reference range: 0.4 to 10.9 Unit: ug/L (Note) TEST INFORMATION: Tryptase This test uses a kit designated by the mike aldana as for research use, not for clinical use. The performance characteristics of this test were valida beltran by [employer] The U.[place]. Food and Kojo g Administration (FDA) has not approved this test. The re sults are not intended to be used as the sole means fo r clinical diagnosis or patient management decision s. [employer] is authorized under Clinical Laboratory Imp rovement Amendments (CLIA) and by all states to p erform high- complexity testing. Performed by [employer], [address], [facility] [place] [address] [email or web address], ??Kenny Hoffmann MD - Lab. Director Specimen Anatomical Collection Method Collection Time Receive d Time (Source) Location / / Volume Laterality 12/06/2007 10:08 12/06/2007 9:57 AM ASSEMBLER METAL FURNITURE AM ASSEMBLER METAL FURNITURE Ortiz Shay MD LAB - BLOOD ORDERABLES Performing Organization Address City/State/ZIP Code Phon e Number MISYS TSH (12/06/2007 10:08 AM ASSEMBLER METAL FURNITURE) athologist Signature TSH 3.18 0.4 - 5.0 MISYS mU/L Specimen Anatomical Collection Method Collection Time Receive d Time (Source) Location / / Volume Laterality 12/06/2007 10:08 12/06/2007 9:57 AM ASSEMBLER METAL FURNITURE AM ASSEMBLER METAL FURNITURE Ortiz Shay MD LAB - BLOOD ORDERABLES Performing Organization Address City/State/ZIP Code Phon e Number MISYS documented in this encounter Visit Diagnoses Not on filedocumented in this encounter
--- OUTSIDE RECORDS SUMMARY | 2022-08-12 11:04 | XMS_ITS | Encounter Summary ---
:1940 Author Organization [place] Address [address] [place] [address] Care Team Providers Name Role Phone Unavailable [...] function test procedure (01/18/2007 9:14 AM CDT) [facility] Method Time Signature Pulmonary RADIOLOGY Function Test Name: ? REBEKAH XIONG ?ID: ?[id number] RESULTS Doctor: ?TAJ, MAL PATSY ? Height: ? 69.00 in ? Age: ?66 Tech: ? PETER RAGSDALE R ? Weight: ? 189.40 lbs ?? Sex: ?Male Date: ?01/18/2007 ?Time: ??09:14:00 AM ? Race: ? <Unspecified> Secondary ID: PT ID: ? [id number] ? Doctor ID: Change Status: Diagnosis: ?ALLERGIES [...] 7 CDT 10:04 AM CDT Transcripton Interface MD PFT ORDERABLES Performing Organization Address City/State/ZIP Code Phon e Number RADIOLOGY RESULTS documented in this encounter Visit Diagnoses Not on filedocumented in this encounter
--- OUTSIDE RECORDS SUMMARY | 2022-08-12 11:04 | XMS_ITS | Encounter Summary ---
:1940 Author Organization [facility] Address [address] [place] [address] Care Team Providers Name Role Phone Unavailable Primary Care Provider Unavailable Encounter Details Date Type Department Care Team Description 02/10/2008 [facility] [place] [address] [address] [place] [address] Social History Tobacco Use Types Packs/Day [...]
--- OUTSIDE RECORDS SUMMARY | 2022-08-12 11:04 | XMS_ITS | Encounter Summary ---
:1940 Author Organization [facility] Address [address] [place] [address] Care Team Providers Name Role Phone Unavailable Primary Care Provider Unavailable Encounter Details Date Type Department Care Team Description 01/03/2008 Office Visit-[facility] Asthma Unknown, [facility] Clinic [address] [place] [phone] Social History Tobacco Use Types Packs/Day Years Used Date Smoking Tobacco: Never Assessed Sex Assigned at Date Recorded Not on file documented as of this encounter Progress Notes Unknown, Provider - 01/03/2008 11:20 AM CDT Development Trainer: Maria Ines Bowens Status: Amended, Unsigned Encounter: 03 Jan 2008 Type: Allergy Nurse Note Reason For Visit Follow up Test results. 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 Allergies Aspirin TABS Other Penicillins Sulfa Drugs Amended By: Maria Ines Bowens ; 01/03/2008 11:22 AM EXTENSION CLERK. Current Meds The medications listed below were [...] 0. Signature Signed By: Maria Ines Bowens [facility]; 01/03/2008 11:22 AM EXTENSION CLERK. documented in this encounter Plan of Treatment Not on filedocumented as of this encounter Visit Diagnoses Not on filedocumented in this encounter
--- OUTSIDE RECORDS SUMMARY | 2022-08-12 11:04 | XMS_ITS | Encounter Summary ---
:1940 Author Organization [facility] [place] Address [address] [place] [address] Care Team Providers Name Role Phone Unavailable Primary Care Provider Unavailable Encounter Details Date Type Department Care Team Description 09/15/2005 Historic Results [facility] Irina Mandel, Radiation Oncology [place]LOY[place] [address] [address] [place] [address] Social History Tobacco Use Types Packs/Day Years Used Date Smoking Tobacco: Never Assessed Sex Assigned at Date Recorded Not on file documented as of this encounter Plan of Treatment Not on filedocumented as of this encounter Procedures Procedure Name Priority Date/Time Associated Diagnosis Comme nts PSA TUMOR MARKER Routine 09/15/2005 4:03 PM Resul ts for this COFFEE GRINDER procedure are i n the results section. documented in this encounter Results PSA tumor marker (09/15/2005 4:03 PM COFFEE GRINDER) athologist Signature PSA 0.41 0 - 4 ug/L MISYS Specimen Anatomical Collection Method Collection Time Receive d Time (Source) Location / / Volume Laterality 09/15/2005 4:03 PM 5 3:55 COFFEE GRINDER PM COFFEE GRINDER Irina Mandel MD LAB - BLOOD ORDERABLES Performing Organization Address City/State/ZIP Code Phon e Number MISYS documented in this encounter Visit Diagnoses Not on filedocumented in this encounter
--- OUTSIDE RECORDS SUMMARY | 2022-08-12 11:04 | XMS_ITS | Encounter Summary ---
:1940 Author Organization [facility] Address [address] [place] [address] Care Team Providers Name Role Phone Unavailable Primary Care Provider Unavailable Reason for Referral Specialty Diagnoses / Procedures Referred By Contact Refer red To Contact [address] [address] Referral ID Status Reason Start Date Expiration Date Visits Requ ested Visits Authorized SHIELD INSTALLER Encounter Details Date Type Department Care Team Description 12/12/2020 Immunization Department of [facility] Itzel Armijo Enco unter For COVID-19 Medicine, [facility], in [place], [facility] [address] [facility] (Primary Dx) [address] [address] [place], [place] [phone] [address] (Work) [phone] Social History Tobacco Use Types Packs/Day Years [...]
--- OUTSIDE RECORDS SUMMARY | 2022-08-12 11:04 | XMS_ITS | Encounter Summary ---
:1940 Author Organization [facility] Address [address] [place] [address] Care Team Providers Name Role Phone Unavailable Primary Care Provider Unavailable Reason for Visit Reason Comments Communication Encounter Details Date Type Department Care Team Description 09/15/2017 Clinical Communication Department of Sebastian Lamb, Communication Medicine, [facility], in [facility] [address] [place], [place] [address] [address] [place], [place] [phone] (Work) [phone] Social History Tobacco Use Types Packs/Day Years Used Date Smoking Tobacco: Never Assessed Sex Assigned at Date Recorded Not on file documented as of this encounter Miscellaneous Notes Telephone Encounter - Reanna Kaplan APRN, R.N. - 09/15/2017 4:53 PM SUPERVISOR RECORD PRESS Noted, thank you. RVISOR RECORD PRESS Telephone Encounter - Barbara Ocampo L.PYuN. - 09/15/2017 4:44 PM CST Daughter contacted and notified that Dr. Sebastian Santana is out of the office until 09/21/17 . Daughter was encouraged to contact patients primary care physician for further direction. RVISOR RECORD PRESS Telephone Encounter - Marily Bergman - 09/15/2017 3:46 PM CST Pts daughter Mira calling, pt is being discharged from [facility] needing to schedule pt, post hosp follow up with in 5 days, discharging with a catheter and urinating bright red red blood. Please call back RVISOR RECORD PRESS documented in this encounter Plan of Treatment Not on filedocumented as of this encounter Visit Diagnoses Not on filedocumented in this encounter
--- OUTSIDE RECORDS SUMMARY | 2022-08-12 11:04 | XMS_ITS | Encounter Summary ---
:1940 Author Organization [place] Address [facility] [place] [address] Care Team Providers Name Role Phone Unavailable Primary Care Provider Unavailable Encounter Details Date Type Department Care Team Description 12/05/2004 Historic B[facility] Radiation [address] [facility] Oncology [facility] [address] [phone] Center, 1st Floor (Work) [place] [address] Social History Tobacco Use Types Packs/Day Years Used Date Smoking Tobacco: Never Assessed Sex Assigned at Date Recorded Not on file documented as of this encounter Progress Notes Vandana Duarte MD - 10/01/2011 4:36 AM INFORMATION TECHNOLOGY SECURITY MANAGER 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 ERON LOVING MD Detention Sergeant Radiation Oncology Date: Dictated by: VANDANA DUARTE MD MT: [email or web address] R/12/23/04/ Document: [id number] CC: MD ERON JACK MD JOHN C HULBERT, MD MALCOLM N BLUMENTHAL, MD LCN: [email or web address] DSC: 12/05/2004 [place], [place] Name: MR#: : ELVIRA: REBEKAH XIONG [id number] 1940 12/05/2004 THERAPEUTIC RADIOLOGY PROGRESS/FOLLOW UP NOTE Page 2 of 2 RMATION TECHNOLOGY SECURITY MANAGER documented in this encounter Plan of Treatment Not on filedocumented as of this encounter Visit Diagnoses Not on filedocumented in this encounter
--- OUTSIDE RECORDS SUMMARY | 2022-08-12 11:04 | XMS_ITS | Clinical Summary ---
:1940 Author Organization [facility] [place] [address] Care Team Providers Name Role Phone Oscar Arevalo MD Primary Care Provider [phone] Allergies Active Allergy Reactions Severity Noted Date Comments Aspirin *Unknown 08/18/2012 From scanned document Diatrizoate Meglumine (Iv Hives 11/02/2012 To lerated PE study Contrast Dye) 08/03/2022 with benadryl pre-medication. Iodine Hives 04/09/2015 Lisinopril *Unknown 08/18/2012 From scanned document. Ask patient if med has side effect (i. e. Cough) as oppos ed to allergic reacti on please. Penicillins *Unknown 08/18/2012 From scanned document Rydal Hives 07/07/2017 Sulfa (Sulfonamide *Unknown 08/18/2012 From [...] (Specify). fluticasone (50 mcg per Inhale 1 [place] 0 Active actuation) nasal into both solution [...] Active 20 mg Delayed-Release BY MOUTH EVERY capsuleIndications: DAY BEFORE A Gastroesophageal reflux MEAL [...] Encounters Date Type Specialty Care Team Description 08/03/2022 Emergency Drevclem, Dewey Skelton, DO SOB (shortness of breath) (Primary Dx); History of card iac pacemaker; Dizziness 08/01/2022 Orders Only <No scans attac hed> 08/01/2022 Travel 07/25/2022 Refill Oscar Miner MD Refill Request (Xarelto) 07/20/2022 Refill Sabino Brock Ref ill Request (Fluoxetine) 06/26/2022 Refill Sabino Brock Ref ill Request (Fluoxetine) 06/06/2022 Telephone Oscar Miner MD Refill Request 06/02/2022 Telephone Oscar Miner MD Need Me ds 05/27/2022 Refill Sabino Brock Ref ill Request (Fluoxetine) 05/27/2022 Refill Oscar [...] 10 days, have you been in contact Unable to asse ss 08/01/2022 9:52 AM CDT with someone who was confirmed or suspected to have Coronavirus/COVID-19? Obstetrics History Last Filed Vital Signs Vital Sign Reading Time Taken Comments Blood Pressure 180/97 08/03/2022 3:02 PM CDT Pulse 60 08/03/2022 3:02 PM CDT Temperature 36.9 ??C (98.5 ??F) 08/03/2022 11:06 AM CDT Respiratory Rate 18 08/03/2022 11:04 AM CDT Oxygen Saturation 95% 08/03/2022 3:02 PM CDT Inhaled Oxygen Concentration - - Weight 100.8 kg (222 lb 4.8 oz) 08/03/2022 11:10 AM CDT Height 172.7 cm (5' 8) 08/03/2022 11:10 AM CDT Body Mass Index 33.8 08/03/2022 11:10 AM CDT Plan of Treatment Upcoming Encounters Date Type Specialty Care Team Description 09/26/2022 Office Visit Oscar Miner MD [address] [facility] [address] [place] [address] (Wo rk) Health Maintenance Due Date Last [...] for age Completed 08/23/2019, , 50+ 10/01/2010 Procedures Procedure Name Priority Date/Time Associated Comments Diagnosis TROPONIN I Timed 08/03/2022 2:51 PM Results f or this CDT procedure are i n the results section. CT CHEST PE STUDY STAT 08/03/2022 1:20 PM Resu lts for this CDT procedure are i n the results section. XR CHEST 1 VIEW STAT 08/03/2022 11:52 Results for this PORTABLE AM CDT procedure are i n the results section. CBC WITH AUTO STAT 08/03/2022 11:29 Results fo r this DIFFERENTIAL AM CDT procedure are i n the results section. PROCALCITONIN STAT 08/03/2022 11:29 Results fo r this AM CDT procedure are i n the results section. LACTATE VENOUS STAT 08/03/2022 11:29 Results f or this AM CDT procedure are i n the results section. D-DIMER,QUANTITATIVE STAT 08/03/2022 11:29 Res ults for this AM CDT procedure are i n the results section. BRAIN NATRIURETIC STAT 08/03/2022 11:29 Result s for this PEPTIDE AM CDT procedure are i n the results section. COMP METABOLIC PANEL STAT 08/03/2022 11:29 Res ults for this AM CDT procedure are i n the results section. MAGNESIUM STAT 08/03/2022 11:29 Results for this AM CDT procedure are i n the results section. TROPONIN I STAT 08/03/2022 11:29 Results for this AM CDT procedure are i n the results section. PROTIME-INR STAT 08/03/2022 11:29 Results for this AM CDT procedure are i n the results section. CBC WITH AUTO STAT 08/03/2022 11:29 Results fo r this DIFFERENTIAL AM CDT procedure are i n the results section. EKG 12 LEAD STAT 08/03/2022 11:09 Results for this AM CDT procedure are i n the results section. from Last 3 Months Results (ABNORMAL) TROPONIN I (08/03/2022 2:51 PM CDT)Only the most recent of2 results within the time period is included. P athologist Signature TROPONIN I 1.074 (H) <0.034 08/03/2022 [place] ng/mL 3:23 PM CDT [facility] Specimen Anatomical Collection Method / Collection Time Recei charan Time (Source) Location / Volume Laterality Blood BLOOD SPECIMEN / Venipuncture / 08/03/2022 2:51 2021 2:54 Unknown Unknown PM CDT PM CDT Dewey Cueva DO CHEMISTRY Performing Organization Address City/State/ZIP Code Phon e Number [facility] [address] [place] [address] CT CHEST PE STUDY (08/03/2022 1:20 PM CDT) Anatomical Region Laterality Modality CHEST, THORAX, HEART Computed Tomography Specimen (Source) Anatomical Collection Method Collection Time Re ceived Time Location / / Volume Laterality 08/03/2022 2:04 PM CDT Impressions 08/03/2022 2:04 PM CDT 1. No PE. 2. Persistent cardiomegaly. 3. Left chest wall pacemaker with associ ated chest wall subcutaneous emphysema likely from recent placement. 4. Mild emphysema. Please note that all CT scans at this [facility] use dose modulation, iterative reconstruction, and/or weight-based dosing when appropriate to reduce radiation dose to as low as reasonably achievable. Dictated by Oscar Michel MD @ 2 2:04:45 PM (Electronically Signed) Narrative 08/03/2022 2:04 PM CDT For Patients: ??As a result of the Cures Act, medical imaging exams and procedure report s are released immediately into your [facility] [employer] medical record. ??You may view this report before your referring provider. ??If you have questions, please contact your health care provider. INDICATION: Positive D-dimer. Dizziness. Pacemaker p lacement on 08/01/2022. COMPARISON: 04/24/2019. TECHNIQUE: CT chest with IV contrast PE protocol. 1 00 cc IV Omnipaque 350. FINDINGS: Cardiomegaly is similar to prior. No per icardial effusion. No filling defect to indicate acute PE. Mildly enlarged right axillary lymph node is stable. No enlarged mediastinal or hilar lymph nodes. Left chest wall pacemaker with leads in the right atrium and right ventricle. Associated subcutaneous emphysema likely from recent placement of pacemaker. Stable small left adrenal nodule. Degenerative changes in the spine. Mild paraseptal emphysema. Mild basilar atelectasis. No pleural effusion or pneumothorax. Stable 3 mm nodule right upper lobe (series 3, image 28). Stable 5 mm right middle lobe nodule (series 3, image 66). Procedure Note Oscar Michel MD - 08/03/2022Fo rmatting of this note might be different from the original. For Patients: As a result of the Cures Act, medical imaging exams and procedure reports are released immediately into your electronic medical record. You may view this report before your referring provider. If you have questions, please contact yo health care provider. INDICATION: Positive D-dimer. Dizziness. Pacemaker p lacement on 08/01/2022. COMPARISON: 04/24/2019. TECHNIQUE: CT chest with IV contrast PE protocol. 1 00 cc IV Omnipaque 350. FINDINGS: Cardiomegaly is similar to prior. No per icardial effusion. No filling defect to indicate acute PE. Mildly enlarged right axillary lymph node is stable. No enlarged mediastinal or hilar lymph nodes. Left chest wall pacemaker with leads in the right atrium and right ventricle. Associated subcutaneous emphysema likely from recent placement of pacemaker. Stable small left adrenal nodule. Degenerative changes in the spine. Mild paraseptal emphysema. Mild basilar atelectasis. No pleural effusion or pneumothorax. Stable 3 mm nodule right upper lobe (series 3, image 28). Stable 5 mm right middle lobe nodule (series 3, image 66). IMPRESSION: 1. No PE. 2. Persistent cardiomegaly. 3. Left chest wall pacemaker with associ ated chest wall subcutaneous emphysema likely from recent placement. 4. Mild emphysema. Please note that all CT scans at this [facility] use dose modulation, iterative reconstruction, and/or weight-based dosing when appropriate to reduce radiation dose to as low as reasonably achievable. Dictated by Oscar Michel MD @ 2 2:04:45 PM (Electronically Signed) Dewey Cueva DO CT XR CHEST 1 VIEW PORTABLE (08/03/2022 11:52 AM CDT) Anatomical Region Laterality Modality HEART, THORAX, CHEST Digital Radiography Specimen (Source) Anatomical Collection Method Collection Time Re ceived Time Location / / Volume Laterality 08/03/2022 12:07 PM CDT Narrative 08/03/2022 12:07 PM CDT For Patients: ??As a result of the Century Cures Act, medical imaging exams and procedure report s are released immediately into your [facility] medical record. ??You may view this report before your referring provider. ??If you have questions, please contact your health care provider. Indication: Dizziness Comparison: Single view chest April 01, 2021 Technique: Single AP view chest Findings: There is hyperinflation and chronic inte rstitial change. There are mildly increased interstitial markings commensurate with pulmonary vascular congestion. There is no dense consolidation or effusion. There is a enlarged cardiac silhouette w ith interval placement of dual chamber pacer. The bony thorax is grossly intact. Impression: Increased interstitial markings commensu rate with pulmonary edema. Dictated by Wes Steele MD @ 2 12:07:50 PM (Electronically Signed) Procedure Note Wes Steele MD - 08/03/2022Fo rmatting of this note might be different from the original. For Patients: As a result of the ntury Cures Act, medical imaging exams and procedure reports are released immediately into your electronic medical record. You may view this report before your referring provider. If you have questions, please contact [facility] care provider. Indication: Dizziness Comparison: Single view chest April 01, 2021 Technique: Single AP view chest Findings: There is hyperinflation and chronic inte rstitial change. There are mildly increased interstitial markings commensurate with pulmonary vascular congestion. There is no dense consolidation or effusion. There is a enlarged cardiac silhouette w ith interval placement of dual chamber pacer. The bony thorax is grossly intact. Impression: Increased interstitial markings commensu rate with pulmonary edema. Dictated by Wes Steele MD @ 2 12:07:50 PM (Electronically Signed) Dewey Skelton Anay DO GENERAL IMAGING (ABNORMAL) CBC WITH AUTO DIFFERENTIAL (08/03/2022 11:29 AM [facility]) [facility] Method Time Signature WHITE BLOOD 8.1 4.5 - 08/03/2022 [place] COUNT 11.0 11:37 AM [facility] thou/cu LABORATORY mm RED BLOOD COUNT 4.42 4.30 - 08/03/2022 [place] 5.90 11:37 AM [facility] mil/cu mm LABORATORY HEMOGLOBIN 13.3 (L) 13.5 - 08/03/2022 [place] 17.5 g/dL 11:37 AM [facility]ORY HEMATOCRIT 40.7 37.0 - 08/03/2022 [place] 53.0 % 11:37 AM [facility] MCV 92 80 - 100 08/03/2022 [place] fL 11:37 AM [facility] MCH 30.1 26.0 - 08/03/2022 [place] 34.0 pg 11:37 AM [facility] MCHC 32.7 32.0 - 08/03/2022 [place] 36.0 g/dL 11:37 AM [facility] RDW 13.7 11.5 - 08/03/2022 [place] 15.5 % 11:37 AM [facility]ORY PLATELET COUNT 185 140 - 440 08/03/2022 [place] thou/cu 11:37 AM [facility] mm LABORATORY MPV 9.9 6.5 - 08/03/2022 [place] 11.0 fL 11:37 AM [facility]ORY % NEUT 78.0 % 08/03/2022 [place] 11:37 AM [facility] % LYMPH 11.8 % 08/03/2022 [place] 11:37 AM [facility] % MONO 7.5 % 08/03/2022 [place] 11:37 AM [facility] % EOS 2.6 % 08/03/2022 [place] 11:37 AM [facility] % BASO 0.1 % 08/03/2022 [place] 11:37 AM [facility]ORY ABSOLUTE 6.3 1.7 - 7.0 08/03/2022 [place] NEUTROPHILS thou/cu 11:37 AM [facility] mm LABORATORY ABSOLUTE 1.0 0.9 - 2.9 08/03/2022 [place] LYMPHOCYTES thou/cu 11:37 AM [facility] mm LABORATORY ABSOLUTE 0.6 <0.9 08/03/2022 [place] MONOCYTES thou/cu 11:37 AM [facility] mm LABORATORY ABSOLUTE 0.2 <0.5 08/03/2022 [place] EOSINOPHILS thou/cu 11:37 AM [facility] mm LABORATORY ABSOLUTE 0.0 <0.3 08/03/2022 [place] BASOPHILS thou/cu 11:37 AM [facility] mm LABORATORY Specimen Anatomical Collection Method Collection Time Receive d Time (Source) Location / / Volume Laterality Blood BLOOD SPECIMEN / Butterfly / 08/03/2022 11:29 022 Unknown Unknown AM CDT 11:33 AM CDT Dewey Cueva DO HEMATOLOGY Performing Organization Address City/State/ZIP Code Phon e Number [facility] [address] [place] [address] LACTATE VENOUS (08/03/2022 11:29 AM CDT) athologist Signature LACTATE,VENOUS 1.0 0.5 - 2.0 08/03/2022 [place] mmol/L 11:50 AM [facility] Specimen Anatomical Collection Method Collection Time Receive d Time (Source) Location / / Volume Laterality Blood BLOOD SPECIMEN / Butterfly / 08/03/2022 11:29 022 Unknown Unknown AM CDT 11:33 AM CDT Dewey Formananabellaearl Anay DO CHEMISTRY Performing Organization Address City/State/ZIP Code Phon e Number [facility] [address] [place] [address] PROCALCITONIN (08/03/2022 11:29 AM CDT) athologist Signature PROCALCITONIN 0.03 <0.50 08/03/2022 [facility] ng/ml 12:35 PM [facility] Specimen Anatomical Collection Method Collection Time Receive d Time (Source) Location / / Volume Laterality Blood BLOOD SPECIMEN / Butterfly / 08/03/2022 11:29 022 Unknown Unknown AM CDT 11:33 AM CDT Narrative [facility] - 12:35 PM CDT Procalcitonin for initial assessment of Lower Respiratory Tract Infection: Results Interpretation <0.1 ng/mL ?Antibiotics strong ly discouraged.* 0.1 - 0.25 ng/mL ??Antibiotics discourag ed. * 0.26 - 0.50 ng/mL Antibiotics encouraged . >0.50 ng/mL ? Antibiotics strongl y encouraged. *If suspicion of infection high, clinica lly unstable, or immunosuppressed: initiate antibiotics. Repeat PCT testing in 6-24 hours. Repeat PCT testing every 1-2 days whil e on antibiotics to assess response to therapy. Procalcitonin for initial assessment of severe sepsis risk: Results Interpretation < 0.5 ng/mL Associated with a low risk f or progression to severe sepsis/septic shock. > 2.0 ng/mL Associated with a high risk for progression to severe sepsis/septic shock. Note: PCT levels below 0.5 ng/mL do not exclude an infection, because localized infections may also be associated with such low levels. If the PCT measurement is done very early after the systemic infec tion process has started (usually <6 edi rs), these values may still be low. PCT levels between 0.5 ng/mL and 2.0 ng/ mL should be interpreted in the context of the specific clinical background and conditions of the individual patient. It is recommended to re-test PCT within 6-24 hours if any concentrations <2.0 ng/mL are obtained. Dewey Cueva DO SEND OUTS Performing Organization Address [facility] LABORATORY [address] [place] [address] BRAIN NATRIURETIC PEPTIDE (08/03/2022 11:29 AM CDT) athologist Signature BRAIN JIMBO 86 <100 pg/mL 08/03/2022 [place] PEPTIDE 12:04 PM [facility] Specimen Anatomical Collection Method Collection Time Receive d Time (Source) Location / / Volume Laterality Blood BLOOD SPECIMEN / Butterfly / 08/03/2022 11:29 022 Unknown Unknown AM CDT 11:33 AM CDT Dewey Cueva DO CHEMISTRY Performing Organization Address [facility] LABORATORY [address] [place] [address] (ABNORMAL) Protime - INR (08/03/2022 11:29 AM CDT) P athologist Signature INR 1.6 (H) <1.3 08/03/2022 [facility] 11:48 AM CDT [facility] PROTIME 18.2 (H) 12.0 - 13.8 08/03/2022 [facility] sec 11:48 AM [facility] Specimen Anatomical Collection Method Collection Time Receive d Time (Source) Location / / Volume Laterality Blood BLOOD SPECIMEN / Butterfly / 08/03/2022 11:29 022 Unknown Unknown AM CDT 11:33 AM CDT [facility] LABORATORY - 11:48 AM CDT ?Therapeutic Range 2.0-3.0 for most anticoagulated patients 2.5-3.5 or 4.0 for high risk patients The INR is only used for patients on sta ble oral anticoagulant therapy. It makes no significant contribution to the diagnosis or treatment of patients whose Protime is prolonged f or other reasons. INR results are increased when heparin l evels exceed 1.0 U/mL, which corresponds to an aPTT >125 seconds if the patient is on UFH. Dewey Dicksonmalcom Cueva DO HEMATOLOGY Performing Organization Address City/[facility]/ZIP Code Phon e Number [facility] [address] [place] [address] (ABNORMAL) D-DIMER,QUANTITATIVE (08/03/2022 11:29 AM CDT) [facility] Time Signature D-DIMER,QUANT 1.03 See Comment 08/03/2022 [facility] ITATIVE / FEU 11:50 AM CDT MEDICAL mcg/mL [facility] D-DIMER Abnormal (A) 08/03/2022 [facility] INTERP 11:50 AM CDT [facility] Specimen Anatomical Collection Method Collection Time Receive d Time (Source) Location / / Volume Laterality Blood BLOOD SPECIMEN / Butterfly / 08/03/2022 11:29 022 Unknown Unknown AM CDT 11:33 AM CDT [facility] LABORATORY - 11:50 AM CDT The cut off value for exclusion of Deep Vein Thrombosis and / or Pulmonary Embolism is 0.50 FEU mcg/mL For patients greater than 50 years of ag e the upper limit is age dependent and was calculated with the formula: ?? (PATIENT AGE x 0.01) FEU mcg/mL = Upper limit of normal range Dewey Dicksonmalcom Cueva DO HEMATOLOGY Performing Organization Address [facility] Code Phon e Number [facility] [address] [place] [address] Magnesium (08/03/2022 11:29 AM CDT) P athologist Signature MAGNESIUM 1.9 1.6 - 2.6 08/03/2022 [place] mg/dL 11:56 AM [facility] Specimen Anatomical Collection Method Collection Time Receive d Time (Source) Location / / Volume Laterality Blood BLOOD SPECIMEN / Butterfly / 08/03/2022 11:29 022 Unknown Unknown AM CDT 11:33 AM CDT Dewey Skelton Anay DO CHEMISTRY Performing Organization Address City/State/ZIP Code Phon e Number [facility] [address] [facility] [place] [address] (ABNORMAL) COMP METABOLIC PANEL (08/03/2022 11:29 AM CDT) [facility] Method Time Signature SODIUM 139 135 - 145 08/03/2022 [place] mmol/L 11:57 AM [facility] POTASSIUM 4.2 3.5 - 5.0 08/03/2022 [place] mmol/L 11:57 AM [facility] CHLORIDE 105 98 - 110 08/03/2022 [place] mmol/L 11:57 AM [facility] CO2,TOTAL 25 21 - 31 08/03/2022 [place] mmol/L 11:57 AM [facility] ANION GAP 9 5 - 18 08/03/2022 [facility] 11:57 AM [facility] GLUCOSE 137 (H) 65 - 100 08/03/2022 [place] mg/dL 11:57 AM [facility] CALCIUM 8.8 8.5 - 10.5 08/03/2022 [place] mg/dL 11:57 AM [facility] BUN 16 8 - 25 08/03/2022 [place] mg/dL 11:57 AM [facility] CREATININE 0.96 0.72 - 08/03/2022 [place] 1.25 mg/dL 11:57 AM [facility] BUN/CREAT RATIO 17 10 - 20 08/03/2022 [place] 11:57 AM [facility] ALBUMIN 3.6 3.2 - 4.6 08/03/2022 [place] g/dL 11:57 AM [facility] PROTEIN,TOTAL 6.6 6.0 - 8.0 08/03/2022 [place] g/dL 11:57 AM [facility] GLOBULIN 3.0 2.0 - 3.7 08/03/2022 [place] g/dL 11:57 AM [facility] A/G RATIO 1.2 1.0 - 2.0 08/03/2022 [facility] 11:57 AM [facility] BILIRUBIN,TOTAL 1.4 (H) 0.2 - 1.2 08/03/2022 [place] mg/dL 11:57 AM [facility] ALK PHOSPHATASE 86 50 - 136 08/03/2022 [place] IU/L 11:57 AM [facility] ALT (SGPT) 14 8 - 45 08/03/2022 [place] IU/L 11:57 AM [facility] AST (SGOT) 20 2 - 40 08/03/2022 [facility] IU/L 11:57 AM [facility] eGFR 79 (L) >90 08/03/2022 [facility] mL/min/1.7 11:57 AM [facility] 3m2 LABORATORY Comment: As of 2022, eGFR is calcu lated by the CKD-EPI creatinine equation without race adjustment. eGFR can be inf luenced by muscle mass, exercise, and diet. The reported eGFR is an estimation only and is only applicable if the renal function is stable. Specimen Anatomical Collection Method Collection Time Receive d Time (Source) Location / / Volume Laterality Blood BLOOD SPECIMEN / Butterfly / 08/03/2022 11:29 022 Unknown Unknown AM CDT 11:33 AM CDT Dewey Cueva DO CHEMISTRY Performing Organization Address City/State/ZIP Code Phon e Number [facility] [address] [place] [address] EKG 12 LEAD (08/03/2022 11:09 AM CDT) [facility] Method Time Signature Interpretation Atrial-paced rhythm with prolonged AV conduction BEYOND NOW Left axis deviation Right bundle branch block Minimal voltage criteria for LVH, may be normal variant Abnormal ECG No previous ECGs available Ventricular Rate 63 BPM [facility]YOND NOW Atrial Rate 63 BPM [facility] NOW P-R Interval 222 ms BEYOND NOW QRS Duration 154 ms [facility]YOND NOW QT 486 ms [facility]YOND NOW QTc 497 ms [facility]YOND NOW P Meta 49 degrees BEYOND NOW R Meta -30 degrees [facility]YOND NOW T Meta 14 degrees BEYOND NOW Specimen Anatomical Collection Method Collection Time Receive d Time (Source) Location / / Volume Laterality 08/03/2022 11:09 08/03/2022 1:33 AM CDT PM CDT Dewey Cueva DO EKG ORD Performing Organization Address City/State/ZIP Code Phon e Number [place] NOW [place], [place] from Last 3 Months Insurance Payer Benefit Plan / Subscriber ID Effective Dates Phone Addre ss Type Group MEDICARE PART A MEDICARE PART A [id number] 2005-Presen ATTN: CLAIMS - HB USE ONLY HB ONLY t [address] [place] [address] MEDICARE PART B MEDICARE PART B [id number] 2007-Presen ATTN: CLAIMS - HB USE ONLY HB ONLY t [address] [place] [address] [employer] BL[employer]OSS [id number] 2016-[place]en [address] [address] [place], [place] HB ONLY [id number] BLUE CROSS MR BLUE CROSS [id number] 2016-Presen [address] [address] [address] [place], [place] ONLY [id number] Advance Directives Documents on File Type Date Recorded Patient Support Team Member Explanati on Healthcare Directive 03/16/2017 2:27 PM [...] Code Status Discussion: Not Discussed Care Teams Fruit Buyer Relationship Specialty Start Date End Date Oscar Arevalo MD PCP - General Family Practice 05/14/211999 [place] [address]
--- OUTSIDE RECORDS SUMMARY | 2022-08-12 11:04 | XMS_ITS | Encounter Summary ---
:1940 Author Organization [facility] Address [address] [place] [address] Care Team Providers Name Role Phone Unavailable Primary Care Provider Unavailable Reason for Visit Reason Comments COVID Inquiry Encounter Details Date Type Department Care Team Description 03/06/2021 Clinical Communication Department of Family Elsewhere, Pcp COVID Inquiry Medicine, [facility], in [place], [place] [address] [place] [address] Social History Tobacco Use Types [...] Because of symptoms, transfer patient to: : [facility] COVID Nurse Line (End Screening) Standard Appointment Process Have you tested positive for COVID-19 in the last 20 days OR do you have a pending COVID-19 test because you had symptoms?: No, neither apply Testing Recommendation Endpoint Is testing recommended? : Recommended to test Plan: Endpoint recommendation: Testing indicated, advised to be swabbed for COVID-19 Only , sent to [facility] located at [address] [place] [address]. The entrance is on the north side of the building. You must call [phone] during the hours of 7am to 6 [...] sending patient for testing in [facility] or [facility], route encounter to the correct testing pool. documented in this encounter Plan of Treatment Not on filedocumented as of this encounter Visit Diagnoses Not on filedocumented in this encounter Additional Health Concerns Infection Onset Date Last Indicated Resolved Time COVID19 Pending 03/06/2021 03/06/2021 03/06/2021 12:04 PM CDT documented as of this encounter
--- OUTSIDE RECORDS SUMMARY | 2022-08-12 11:04 | XMS_ITS | Encounter Summary ---
:1940 Author Organization [facility] Address [address] [place] [address] Care Team Providers Name Role Phone Unavailable Primary Care Provider Unavailable Reason for Visit Reason Onset Date Comments Outpatient COVID-19 Testing 09/18/2020 Encounter Details Date Type Department Care Team Description 09/18/2020 External Outreach Department of Naman Calzada Infect ion Upper Internal Medicine in J, D.O. Respiratory (Primary [place], [place] [address] Dx) [address] [place] [phone] Social History Tobacco Use Types Packs/Day Years Used Date Smoking Tobacco: Never Assessed Sex Assigned at Date Recorded Not on file documented as of this encounter Progress Notes Nai Ramsey R.N. - 09/18/2020 3:45 PM CST Encounter created for the drive-through COVID-19 testing. LLE OPERATOR documented in this encounter Miscellaneous Notes Addendum Note - Nai Ramsey R.N. - 09/18/2020 3:45 PM BRAILLE OPERATOR Addended by: NAI RAMSEY on: 09/19/2020 06:30 PM Modules accepted: Orders LLE OPERATOR documented in this encounter Plan of Treatment Not on filedocumented as of this encounter Visit Diagnoses Diagnosis Infection Upper Respiratory - Primary documented in this encounter Additional Health Concerns Infection Onset Date Last Indicated Resolved Time COVID19 Pending 09/18/2020 09/18/2020 09/19/2020 6:30 PM BRAILLE OPERATOR documented as of this encounter
--- OUTSIDE RECORDS SUMMARY | 2022-08-12 11:04 | XMS_ITS | Encounter Summary ---
:1940 Author Organization [facility] Address [address] [place] [address] Care Team Providers Name Role Phone Unavailable Primary Care Provider Unavailable Reason for Visit Reason Onset Date Comments Testing For Upper Respiratory Virus Symptoms 03/06/2021 Encounter Details Date Type Department Care Team Description 03/06/2021 External Outreach Department of [facility] Messi Calzadaold Contact With And Medicine, [facility] Isabel Spann (Suspected) Exposure Building, in [address] COVID-19 (Primary [place], [place] Dx) [address] [facility] [address] [place], [place] [phone] [address] (Work) [phone] Social History Tobacco Use Types Packs/Day Years [...]
--- OUTSIDE RECORDS SUMMARY | 2022-08-12 11:04 | XMS_ITS | Encounter Summary ---
:1940 Author Organization [facility] Address [address] [place] [address] Care Team Providers Name Role Phone Unavailable Primary Care Provider Unavailable Encounter Details Date Type Department Care Team Description 12/06/2007 Office Visit-[facility] Allergy and Asthma Ortiz Shay [place] Building XXX RESIGNED XXX 2nd Floor, Clinic 2A [address] [facility] [address] [phone] Social History Tobacco Use Types Packs/Day Years Used Date Smoking Tobacco: Never Assessed Sex Assigned at Date Recorded Not on file documented as of this encounter Progress Notes Ortiz Shay - 12/06/2007 8:50 AM CST Color Worker: Ortiz Shay Status: Final - Signature Encounter: 06 Dec 2007 Type: Allergy Chart Note Pulmonary, Allergy and Critical Care Department of Medicine [place] Mail Code [address] [place] [address] Office: [phone] Allergy and Asthma Clinic [facility] Fifth Floor, Clinic [address] [place] [address] RE: Abraham Mancuso : 1940 [place]: 12/06/2007 [...] he gets reevaluated by primary care doctor. Ortiz Shay M.D. futures trader Director, Asthma & Allergy Program MB:laurie Electronically signed by:Sanju Shay M.D. Dec 22 2007 5:28PM ART THERAPY CERTIFIED SUPERVISOR THERAPY CERTIFIED SUPERVISOR documented in this encounter Plan of Treatment Not on filedocumented as of this encounter Visit Diagnoses Not on filedocumented in this encounter
--- OUTSIDE RECORDS SUMMARY | 2022-08-12 11:04 | XMS_ITS | Encounter Summary ---
:1940 Author Organization [facility] Address [address] [place] [address] Care Team Providers Name Role Phone Unavailable Primary Care Provider Unavailable Reason for Referral Specialty Diagnoses / Procedures Referred By Contact Refer red To Contact Itzel Armijo M.D. [facility] [address] [place] [phone] Referral ID Status Reason Start Date Expiration Date Visits Requ ested Visits Authorized ATING MACHINE OPERATOR Encounter Details Date Type Department Care Team Description 11/27/2020 Orders Only [facility] Sa mitesh Armijo M.D. [address] [place] [phone] (Wo rk) Social History Tobacco [...]
--- OUTSIDE RECORDS SUMMARY | 2022-08-12 11:04 | XMS_ITS | Encounter Summary ---
:1940 Author Organization [facility] Address [address] [place] [address] Care Team Providers Name Role Phone Unavailable Primary Care Provider Unavailable Reason for Visit Appointment Request (Routine) - Closed Specialty Diagnoses / Procedures Referred By Contact Refer red To Contact Family Medicine Referral ID Status Reason Start Date Expiration Date Visits Requ ested Visits Authorized [id number] Closed 08/21/2021 08/21/2022 1 1 Encounter Details Date Type Department Care Team Description 08/30/2021 Immunization Department of Family Medicine, [facility], in [address] [place] [phone] Social History Tobacco Use Types Packs/Day Years Used Date Smoking Tobacco: Never Assessed Sex Assigned at Date Recorded Not on file documented as of this encounter Plan of Treatment Not on filedocumented as of this encounter Visit Diagnoses Not on filedocumented in this encounter
--- OUTSIDE RECORDS SUMMARY | 2022-08-12 11:04 | XMS_ITS | Clinical Summary ---
:1940 Author Organization [facility] Address [address] [place] [address] Care Team Providers Name Role Phone Unavailable Primary Care Provider Unavailable Source Comments Patient records contain information from all sites at [facility]. For routine questions regarding patient records, call [phone] during business hours, M-F 8:00 AM - 5:00 PM Central Time. Record requests for emergency care only can be directed to [phone] at any time.[facility] Immunizations Name Administration Dates Next Due SARS-COV-2 [...] e / Group Dates MEDICARE MEDICARE A [id number] 2007-Pres [address] [place] [address] BLUE CROSS BCBS [place] [id number] 2016-Pres [phone] PO BLANCA X Cost Share BLUE SHIELD BLUE COST ent [phone] [place] [address]
--- OUTSIDE RECORDS SUMMARY | 2022-08-12 11:04 | XMS_ITS | Encounter Summary ---
:1940 Author Organization [facility] Address [address] [place] [address] Care Team Providers Name Role Phone Unavailable Primary Care Provider Unavailable Encounter Details Date Type Department Care Team Description 05/29/2017 Hospital Encounter HX [facility] Nettie Madison M.D. [address] [place] [address] [place] [phone] (Wo rk) Social History Tobacco Use Types Packs/Day Years Used Date Smoking Tobacco: Never Assessed Sex Assigned at Date Recorded Not on file documented as of this encounter Plan of Treatment Not on filedocumented as of this encounter Visit Diagnoses Not on filedocumented in this encounter
[2022-08-12 16:59] LABS: SARS PCR* Negative SARS-CoV-2 (Negative)
== END 2022-08-12 10:48 | disposition home or self-care (01) ==
LOC: FBOREF 10:48
PROVIDERS: PCP Family Medicine; Visit Provider Family Medicine
DX: Z20.822 Contact with and (suspected) exposure to COVID-19 (principal)
CPT/HCPCS: 87635

== ENCOUNTER 2022-08-17 01:23 | Observation (INO) | payer MEDICARE, BC, SELFPAY ==
[2022-08-17] VITALS (15 sets, daily range): BP systolic 117–179; BP diastolic 61–94; PULSE 60–75; RESP 16–18; TEMP 36.3–37; O2SAT 92–97
--- NOTE | 2022-08-17 02:10 | ED_ITS ---
HPI - Weakness General Time Seen by Provider: 01:55 Date Seen: 08/17/22 Chief complaint: Weakness Stated complaint: Weakness, Nausea Time Seen by Provider: 08/17/22 02:06 Source: patient, family, RN notes reviewed and old records reviewed Mode of arrival: EMS Limitations: no limitations History of Present Illness HPI Narrative: Abraham is a very pleasant 82-year-old male with history of recent pacemaker placement, atrial fibrillation, hypothyroidism and recent exposure to COVID who comes to the emergency room via EMS for the sudden onset of nausea vomiting diarrhea and shortness of breath. Patient noted to have gone to bed a little bit early this last evening at approximately 2100 hours. At 0930 he stated that he needed to get up and had episode of diarrhea followed by vomiting. He describes weakness as well. Initially he describes shortness of breath but upon further discussion this is been constant since he has been on amlodipine and he has recently been taken off of this. However his daughter notes that his O2 sats have been dropping to 88% which is unusual for him. He has not been coughing. He has not had any chest pain. He also denies belly pain. He does note that there was a small amount of diarrhea that dropped on the floor and he thought it was somewhat pink. He states he has a history of hemorrhoids that were excised but wonders if they may have come back. He denies a headache but notes neck stiffness body stiffness any feels chilled. He denies a fever. He does note that he has had decreased appetite and weight loss over this past week. Patient notes daily alcohol use of 2 glasses of wine prior to dinner. He states he is trying to not drink after dinner. I do ask him if he goes through a bottle of wine a day and he denies. He denies any history of withdrawal if he skips this habit. Quit smoking many years ago. Currently takes care of his and daughter who is here here with him today states that she would be unable to care for Abraham at home. Patient has COVID vaccinations x2 +1 booster. Cardiac history: History of AFib with RVR ablation x2. On July 31 presented to the [facility] with bradycardia/bigeminy. Patient was then seen at [facility] on August 01 and underwent pacemaker placement. No known complications from that procedure. MD Complaint: generalized weakness Related Data Home Medications Medication Instructions Recorded Confirmed atorvastatin 40 mg tablet 40 mg PO HS 06/18/22 08/12/22 epinephrine 0.3 mg/0.3 mL 0.3 mg IM Q4H PRN 06/18/22 08/12/22 injection, auto-injector finasteride 5 mg tablet 5 mg PO DAILY 06/18/22 08/12/22 fluticasone propionate 50 2 spray intranasal DAILY 06/18/22 08/12/22 mcg/actuation nasal spray,suspension levothyroxine 200 mcg tablet 200 mcg PO DAILY 06/18/22 08/12/22 omeprazole 20 mg capsule,delayed 20 mg PO DAILY 06/18/22 08/12/22 release rivaroxaban 20 mg tablet 20 mg PO DAILY 06/18/22 08/12/22 sotalol 120 mg tablet 120 mg PO BID 06/18/22 08/12/22 cetirizine 10 mg tablet (24Hour 10 mg PO DAILY 08/01/22 08/12/22 Allergy) fluoxetine 40 mg capsule 40 mg PO DAILY 08/01/22 08/12/22 tamsulosin 0.4 mg capsule 0.8 mg PO DAILY 08/01/22 08/12/22 magnesium 200 mg tablet 200 mg PO QDAY 08/12/22 08/12/22 Allergies Allergy/AdvReac Type Severity Reaction Status Date / Time aspirin Allergy Mild Unknown Verified 08/12/22 10:46 iodine Allergy Mild Hives Verified 08/12/22 10:46 Penicillins Allergy Mild Unknown Verified 08/12/22 10:46 strawberry Allergy Mild Unknown Verified 08/12/22 10:46 Sulfa (Sulfonamide Allergy Mild Hives Verified 08/12/22 10:46 Antibiotics) Review of Systems Status of ROS: Reports: 10 or more systems reviewed and unremarkable except as noted in History and below Const: Reports: chills and fatigue; Denies: fever Eyes: Denies: change in vision or blurry vision ENMT: Reports: neck pain (Stiff from vomiting per patient); Denies: throat pain, throat swelling, difficulty swallowing or hoarseness Cardio: Reports: shortness of breath with exertion (Chronic and not worse than normal); Denies: chest pain, palpitations, edema or swelling of feet/ankles Resp: Reports: shortness of breath (Chronic and not worse than normal); Denies: cough or wheezing GI: Reports: nausea, vomiting, diarrhea and blood in stool; Denies: abdominal pain or difficulty swallowing : Reports: other (History of incontinence); Denies: painful urination Musculo: Reports: neck pain (Stiff from vomiting per patient); Denies: back pain, extremity pain or extremity swelling Integ/Breast: Denies: rash Neuro: Denies: headache or numbness in extremities Endo: Reports: fatigue Allergy/Immuno: Denies: throat swelling or wheezing PFSH PFSH Medical History Alcohol intoxication History of alcohol abuse History of prostate cancer Surgical History History of lumbar laminectomy Hx of appendectomy Hx of hemorrhoidectomy Hx of thyroidectomy Social History Narrative: retired Social EtOH Highest level of school completed/degree received: some college, no degree Smoking Status: Former smoker What tobacco products do you use: cigarettes Smoking quit date/years: >15 years ago Do you use any of these nicotine containing products: None Second hand tobacco smoke exposure: No How often do you have a drink containing alcohol: 4 or more times a week Alcohol type: wine Alcohol type details: 4 glasses of white wine daily How many standard drinks containing alcohol do you have on a typical day: 3 or 4 How often do you have six or more drinks on one occasion: Daily or almost daily AUDIT-C Alcohol total score: 9 Non-prescribed substance use: denies use Caffeine: Yes (1 cup a day) service: No Exam Narrative: Exam Narrative: Patient is alert and oriented. Eyes are clear oral cavity moist mucous membranes. Oxygen is in place Neck is supple range of motion is full. No midline tenderness. Well-healed scar at the base of the neck. Heart with a regular rate and rhythm. Lungs are clear to auscultation. Abdomen soft nontender. Lower extremities without edema. Guaiac of stool is positive. Const: Vital Signs, click to edit/add: Vital Signs - 24 hr 08/17/22 01:37 08/17/22 02:07 08/17/22 02:07 Temperature 97.8 F Pulse Rate [Left P ulse Oximeter] 66 Respiratory Rate 18 Blood Pressure [Ri ght Upper Arm] 135/70 Pulse Oximetry 92 94 94 Oxygen Delivery Me thod Room Air Nasal Cannula Oxygen Flow Rate 08/17/22 02:34 Temperature 97.3 F L Pulse Rate [Left P ulse Oximeter] 67 Respiratory Rate 16 Blood Pressure [Ri ght Upper Arm] 143/64 H Pulse Oximetry 94 Oxygen Delivery Me thod Nasal Cannula Oxygen Flow Rate 2 Medical Problems: GERD (gastroesophageal reflux disease) Atrial fibrillation Hx cardioversion x2 in 2017. 2nd successful w/ sustained benefit. See scanned 04/11/20 [facility] note. Hypothyroidism Hyperlipidemia COVID-19 virus infection History of prostate cancer Radiation & Lupron BPH (benign prostatic hyperplasia) w/ urinary retention. On finasteride. Abstracted [facility] record. Sensorineural hearing loss (SNHL) of both ears History of alcohol abuse Health care directive on file Health Care Directive completed on 12/18/2016. Reviewed and sent for scanning on 11/07/2020. Paroxysmal atrial fibrillation Urinary retention with incomplete bladder emptying Essential hypertension OLIVER (generalized anxiety disorder) Major depressive disorder, recurrent episode, mild Adrenal adenoma Alcohol intoxication Lung nodule Surgical Problems: History of appendectomy History of hemorrhoidectomy History of lumbar laminectomy History of thyroidectomy Social History Problems: , retired, social EtOH Documenting provider has reviewed patient's vital signs: yes Course Course Hospital Course: At this time will check a COVID, magnesium, CBC, comprehensive panel, CRP, lactate, amylase, lipase. Will give 1 L of normal saline. EKG and chest x-ray. Reevaluation(s) Reevaluation #1: Patient continues to have no vomiting. Stool was positive for blood with a Hemoccult. Patient has no ongoing diarrhea at this time. Oxygen did drop to 85% when O2 was removed. Vital Signs Vital signs: Initial Vital Signs Temperature 97.8 F 08/17/22 01:37 Temperature Source Temporal Artery Scan 08/17/22 01:37 Pulse Rate 66 08/17/22 01:37 Pulse Rhythm 08/17/22 01:37 Respiratory Rate 18 08/17/22 01:37 Blood Pressure 135/70 08/17/22 01:37 Blood Pressure Mean 91 08/17/22 01:37 Blood Pressure Position Semi-Fowlers 08/17/22 01:37 Pulse Oximetry 92 08/17/22 01:37 Oxygen Delivery Method 08/17/22 01:37 Vital Signs Temperature 97.8 F 08/17/22 01:37 Pulse Rate 66 08/17/22 01:37 Respiratory Rate 18 08/17/22 01:37 Blood Pressure 135/70 08/17/22 01:37 Pulse Oximetry 92 08/17/22 01:37 Oxygen Delivery Method 08/17/22 01:37 Temperature 97.3 F L 08/17/22 02:34 Pulse Rate 67 08/17/22 02:34 Respiratory Rate 16 08/17/22 05:22 Blood Pressure 143/64 H 08/17/22 02:34 Pulse Oximetry 94 08/17/22 05:22 Oxygen Delivery Method 08/17/22 05:22 Oxygen Flow Rate 1 08/17/22 05:22 MDM - Weakness MDM Narrative Medical decision making narrative: 1. Vomiting and diarrhea-this is improved with Zofran 4 mg. Patient is given 1 L of saline. Patient tested negative for COVID, C diff is pending although patient has not had any recent antibiotics. No other family members ill at this time. White count elevated at 12.53, CRP is 1.0 and lactate is 0.9. Previous note from July 31 notes loose stools starting prior to that time. Vomiting is new tonight however. Patient has no abdominal pain and has had no further episodes of vomiting in the ED. 2. Xzcuueqmp-vqsebclk-eegmpyv has hemoglobin of 13.6 patient has no abdominal pain at this time. Currently on Xarelto. 3. Hypoxia-O2 sats of 85% when oxygen is removed. Patient has not been coughing. Symptoms were sudden in onset this evening. His shortness of breath is chronic and thought to be related to the use of amiodarone per the family. A chest x-ray is currently pending. History of hypomagnesemia-1.7 tonight 4. Disposition-patient is admitted to the floor under the care of [facility] hospitalist, Dr. Malhotra. Medical Records Attestation: I reviewed the patient's medical records. Lab Data Attestation: I reviewed the patient's lab results. Labs: Lab Results 08/17/22 08/17/22 08/17/22 Range/Units 01:48 02:25 02:25 WBC 12.53 H (4.50-11.00) K/uL RBC 4.55 (4.30-5.90) m/uL Hgb 13.6 (13.5-17.5) gm/dL Hct 42.0 (37.0-53.0) % MCV 92 (80-100) fL MCH 30 (26-34) pg MCHC 32 (32-36) gm/dL RDW Coeff of Florentin 13.2 (11.5-15.5) % Plt Count 206 (140-440) K/uL Neut % (Auto) 90.5 H (42.0-72.0) % Lymph % (Auto) 3.1 L (20-44) % Sumter % (Auto) 5.2 (0.0-11.0) % Eos % (Auto) 1.0 (0.0-7.0) % Baso % (Auto) 0.0 (0.0-3.0) % Neut # (Auto) 11.30 H (1.7-7.0) K/uL Lymph # (Auto) 0.40 L (0.90-2.90) K/uL Sumter # (Auto) 0.70 (0.00-0.90) K/UL Eos # (Auto) 0.10 (0.00-0.50) K/uL Baso # (Auto) 0.00 (0.00-0.30) K/uL Abs Immat Gran (auto) 0.02 (0.00-0.30) K/uL Sodium 139 (135-149) mmol/L Potassium 3.8 (3.6-5.1) mmol/L Chloride 107 (96-114) mmol/L Carbon Dioxide 23 (20-32) mmol/L BUN 19 (7-30) mg/dL Creatinine 0.9 (0.5-1.5) mg/dL Estimated GFR 85 ml/min Glucose 139 H (60-115) mg/dL Lactate (0.5-1.9) mmol/L Calcium 8.9 (8.4-10.6) mg/dL Magnesium 1.7 (1.5-2.6) mg/dL Total Bilirubin 1.2 (0.1-1.5) mg/dL AST 22 (12-35) U/L ALT 17 (4-50) U/L Alkaline Phosphatase 99 (40-150) U/L C-Reactive Protein 1.0 (0.5-1.0) mg/dL Total Protein 6.8 (6.0-8.3) g/dL Albumin 3.9 (3.3-5.0) g/dL Amylase 45 (18-89) U/L Lipase 31 (23-300) U/L SARS-CoV-2 (PCR) Negative SARS-CoV-2 (Negative) Influenza Type A (PCR) Negative PCR FLU A (Negative) Influenza Type B (PCR) Negative PCR FLU B (Negative) RSV (PCR) Negative PCR RSV (Negative) 08/17/22 Range/Units 02:25 WBC (4.50-11.00) K/uL RBC (4.30-5.90) m/uL Hgb (13.5-17.5) gm/dL Hct (37.0-53.0) % MCV (80-100) fL MCH (26-34) pg MCHC (32-36) gm/dL RDW Coeff of Florentin (11.5-15.5) % Plt Count (140-440) K/uL Neut % (Auto) (42.0-72.0) % Lymph % (Auto) (20-44) % Sumter % (Auto) (0.0-11.0) % Eos % (Auto) (0.0-7.0) % Baso % (Auto) (0.0-3.0) % Neut # (Auto) (1.7-7.0) K/uL Lymph # (Auto) (0.90-2.90) K/uL Sumter # (Auto) (0.00-0.90) K/UL Eos # (Auto) (0.00-0.50) K/uL Baso # (Auto) (0.00-0.30) K/uL Abs Immat Gran (auto) (0.00-0.30) K/uL Sodium (135-149) mmol/L Potassium (3.6-5.1) mmol/L Chloride (96-114) mmol/L Carbon Dioxide (20-32) mmol/L BUN (7-30) mg/dL Creatinine (0.5-1.5) mg/dL Estimated GFR ml/min Glucose (60-115) mg/dL Lactate 0.9 (0.5-1.9) mmol/L Calcium (8.4-10.6) mg/dL Magnesium (1.5-2.6) mg/dL Total Bilirubin (0.1-1.5) mg/dL AST (12-35) U/L ALT (4-50) U/L Alkaline Phosphatase (40-150) U/L C-Reactive Protein (0.5-1.0) mg/dL Total Protein (6.0-8.3) g/dL Albumin (3.3-5.0) g/dL Amylase (18-89) U/L Lipase (23-300) U/L SARS-CoV-2 (PCR) (Negative) Influenza Type A (PCR) (Negative) Influenza Type B (PCR) (Negative) RSV (PCR) (Negative) Imaging Data Chest x-ray: Attestation: I have reviewed the pertinent imaging results. My impression: Chronic lung markings. Cardiomegaly Radiologist's impression: FINDINGS: The sensitivity and specificity of the exam are moderately limited by the patient`s body habitus. Mediastinum: Moderate cardiomegaly is noted without interval change. There is a left cardiac pacer present with leads in the right atrium and right ventricle. Lung: There is an asymmetric density in the right lower lung zone measuring 1.4 cm. This is less distinct between the 2 frontal views and may represent a summation artifact of atelectasis and pulmonary vessels. No sign of pleural effusion seen. No pneumothorax is identified. Bone and Soft tissue: Unremarkable for age. IMPRESSION: 1. Moderate cardiomegaly is noted without interval change. ECG Data Attestation: I personally reviewed and interpreted this ECG as follows: ECG interpretation date: 08/17/22 Prior ECG tracings: available for review Interpretation: Patient is noted to be in sinus rhythm at a rate of 67. Right bundle-branch block present. I vesicular block present. Significant improvement from previous a kg which showed bradycardia in bigeminy. Discharge Plan Discharge Clinical Impression: Diarrhea, Hypoxia Patient Disposition: Admitted As Inpatient Condition: Improved
--- OUTSIDE RECORDS SUMMARY | 2022-08-17 02:11 | XMS_ITS | Clinical Summary ---
:1940 Author Organization [place] Address [address] [place] [address] Care Team Providers Name Role Phone Maikel [...] Comments Blood Pressure 148/81 09/19/2017 12:54 PM FARM EQUIPMENT MECHANIC Pulse 62 10/23/2017 3:21 PM FARM EQUIPMENT MECHANIC Temperature 36.6 ??C (97.9 ??F) 09/19/2017 9:41 AM FARM EQUIPMENT MECHANIC Respiratory Rate 20 09/19/2017 12:54 PM FARM EQUIPMENT MECHANIC Oxygen Saturation 93% 10/23/2017 3:21 PM FARM EQUIPMENT MECHANIC Inhaled Oxygen Concentration - - Weight 101.6 kg (224 lb) 10/23/2017 3:21 PM FARM EQUIPMENT MECHANIC Height 172.7 cm (5' 8) 10/23/2017 3:21 PM FARM EQUIPMENT MECHANIC Body Mass Index 34.06 10/23/2017 3:21 PM FARM EQUIPMENT MECHANIC Plan of Treatment Health Maintenance Due Date [...] ype Group Dates MEDICARE MEDICARE FOR HB [id number] 2013-Prese [phone] ATTN CLAIMS Medicare SUPPLEMENT nt 40 [address] [place] [address] BCBS BCBS [place] [id number] 2016-Prese [phone] [address] [address] PPO BLUE nt 00 [place] [id number] Advance Directives For more information, please contact: [phone] Documents on File Type Date Recorded Patient Assembler Molded Frames Explanati on Advance Directives and 11/07/2012 8:20 AM VALIDAT ION OF Living Will AD-10/09/1999 Advance Directives and 11/07/2012 8:20 AM HEALTH CARE Living Will DIRECTIVE-1998 Care Teams Dinkey Operator Slag Relationship Specialty Start Date End Date Maikel Brock PCP - General Family Practice 09/19/[address] [place] [address]
--- OUTSIDE RECORDS SUMMARY | 2022-08-17 02:11 | XMS_ITS | Encounter Summary ---
:1940 Author Organization [facility] Address [address] [place] [address] Care Team Providers Name Role Phone Maikel [...] on filedocumented in this encounter Care Teams Coper Hand Relationship Specialty Start Date End Date Maikel Brock PCP - General Family Practice 09/19/[address] [place] [address] documented as of this encounter
--- OUTSIDE RECORDS SUMMARY | 2022-08-17 02:11 | XMS_ITS | Encounter Summary ---
:1940 Author Organization [place] Address [address] [place] [address] Care Team Providers Name Role Phone Jordan Morales Primary Care Provider Reason for Visit Reason Comments Cystoscopy gross hematuria Encounter Details Date Type Department Care Team Description 10/23/2017 Office Visit [facility] Vidal, Henry Gross hematuria Urology Clinic MD Oscar (Primary Dx) [address] [address] [place] [address] [place], [place] (Work) [address] [phone] Social History Tobacco Use Types Packs/Day Years [...] - - Pulse 62 10/23/2017 3:21 PM CARD READER Temperature - - Respiratory Rate - - Oxygen Saturation 93% 10/23/2017 3:21 PM CARD READER Inhaled Oxygen Concentration - - Weight 101.6 kg (224 lb) 10/23/2017 3:21 PM CARD READER Height 172.7 cm (5' 8) 10/23/2017 3:21 PM CARD READER Body Mass Index 34.06 10/23/2017 3:21 PM CARD READER documented in this encounter Patient Instructions Patient InstructionsCristo Vargas, EXTRUSION PROCESS OPERATOR - 10/23/2017 3:30 PM CST AFTER YOUR [...] our office with any concerns or questions [phone] READER documented in this encounter Progress Notes Henry Vidal MD - 10/23/2017 3:30 PM CST Office Visit Note [facility] UROLOGIC DIAGNOSES: Hematuria, [...] atraumatic Cardiac: Not done Back/Flank: Not done BULWARK CARPENTER/PNS: Not done Respiratory: Normal non-labored breathing Abdomen: [...] in Consultation: 10 minutes Henry Vidal M.D. READER documented in this encounter Nursing Notes Cristo [...] recommended by the MD. Darius Vargas CMA READER documented in this encounter Miscellaneous Notes Addendum Note - Cristo Vargas CMA - 10/23/2017 4:09 PM CARD READER Addended by: CRISTO VARGAS on: 10/23/2017 04:09 PM Modules accepted: Orders READER documented in this encounter Plan of Treatment Not on filedocumented as of this encounter Procedures Procedure Name Priority Date/Time Associated Diagnosis Comme nts CYTOLOGY NON WAD PRINTING MACHINE OPERATOR Routine 10/23/2017 4:09 PM Gross hematuria Re sults for this CARD READER procedure are i n the results section. documented in this encounter Results Cytology non urogynecology physician [[id number]] (10/23/2017 4:09 PM CARD READER) Component Value Ref Test Analysis Performed At [facility] Range Method Time Signature Copath Report Patient Name: REBEKAH XIONG MR#: [id number] Specimen #: [id number] Collected: 10/23/2017 Received: 10/27/2017 [...] Jocelyn Hyatt M.D. Processed and screened at [facility] CLINICAL HISTORY: , GROSS: Urine-voided: ??Received 20 ml of yellow, clear fluid, proce ssed as 1 Pap stained AutoCyte. CPT Codes: A: [id number] TESTING LAB LOCATION: [address] ??[address] COLLECTION SITE: Client: ??[facility] Location: ??UBURO (R) Specimen (Source) Anatomical Collection Method Collection Time Re ceived Time Location / / Volume Laterality Cytologic 10/23/2017 4:09 10/27/2017 8 :38 material PM CARD READER AM CARD READER (specimen) Henry Vidal MD LAB - OPTIME CLINICAL SPECIM EN Performing Organization Address City/State/ZIP Code Phon e Number COPATH documented in this encounter Visit Diagnoses Diagnosis Gross hematuria - Primary documented in this encounter Care Teams Scrum Master Relationship Specialty Start Date End Date Jordan Morales PCP - General Family Practice 09/19/[address] [address] documented as of this encounter
--- OUTSIDE RECORDS SUMMARY | 2022-08-17 02:11 | XMS_ITS | Encounter Summary ---
:1940 Author Organization [place] Address [facility] [place] [address] Care Team Providers Name Role Phone Maikel Brock Primary Care Provider Reason for Visit (Routine) - Closed Specialty Diagnoses / Procedures Referred By Contact Refer red To Contact Radiology / Radiology. Diagnoses EPIC order, sb Marcy [phone] Ct Scan [facility] [place] [address] [address] [place] [address] Phone: Fax: Referral ID Status Reason Start Date Expiration Date Visits Requ ested Visits Authorized [id number] Closed 09/29/2017 09/29/2018 1 1 Encounter Details Date Type Department Care Team Description 10/21/2017 Hospital Encounter [facility] Racquel Diaz, Gross hematuria [facility] [address] [facility] [address] [address] [place], [place] [address] Social History Tobacco Use Types Packs/Day [...] hematuria R esults for this W/O CONTRAST ROUTE SALES DELIVERY DRIVER procedure are i n the results section. documented in this encounter Results CT Abdomen Pelvis w/o Contrast (10/21/2017 3:47 PM ROUTE SALES DELIVERY DRIVER) Anatomical Region Laterality Modality Abdomen/Pelvis, SUBRAD CT BODY, UMP CT ABDOMEN PELVIS, Computed Tomography RAD CT Specimen (Source) Anatomical Location Collection Method / Collectio n Time Received Time / Laterality Volume Impressions 10/22/2017 7:56 AM ROUTE SALES DELIVERY DRIVER IMPRESSION: No urinary tract calculi or hydronephrosis. Prostate gland is not enlarged but a few prostatic calc ifications are present. Follow-up as clinically warranted. MEGA WILSON MD Narrative 10/22/2017 7:56 AM ROUTE SALES DELIVERY DRIVER CT ABDOMEN AND PELVIS WITHOUT CONTRAST 10/21/2017 [...] hematuria documented in this encounter Care Teams Prevention Coordinator Relationship Specialty Start Date End Date Maikel Brock PCP - General Family Practice 09/19/[address] [address] documented as of this encounter
--- OUTSIDE RECORDS SUMMARY | 2022-08-17 02:12 | XMS_ITS | Encounter Summary ---
:1940 Author Organization [place] Address [address] [place] [address] Care Team Providers Name Role Phone Unavailable Primary Care Provider Unavailable Encounter Details Date Type Department Care Team Description 01/03/2010 Historic Results INTERFACED REPORT Manuel Silvestre MD EMERGENCY PHYSIC [facility] [address] [place], [place] [address] (Wo rk) Social History Tobacco Use Types Packs/Day Years Used Date Smoking Tobacco: Never Assessed Sex Assigned at Date Recorded Not on file documented as of this encounter Plan of Treatment Not on filedocumented as of this encounter Procedures Procedure Name Priority Date/Time Associated Comments Diagnosis CBC WITH PLATELETS & STAT 01/03/2010 8:50 AM R esults for this DIFFERENTIAL FLUID DYNAMICIST procedure are i n the results section. TSH WITH FREE T4 STAT 01/03/2010 8:50 AM Resul ts for this REFLEX FLUID DYNAMICIST procedure are i n the results section. TROPONIN I STAT 01/03/2010 8:50 AM Results f or this FLUID DYNAMICIST procedure are i n the results section. D DIMER QUANTITATIVE STAT 01/03/2010 8:50 AM R esults for this FLUID DYNAMICIST procedure are i n the results section. COMPREHENSIVE STAT 01/03/2010 8:50 AM Results for this METABOLIC PANEL FLUID DYNAMICIST procedure ar e in the results section. documented in this encounter Results (ABNORMAL) CBC with platelets differential (01/03/2010 8:50 AM FLUID DYNAMICIST) [facility] Method Time Signature MCV 92 78 - [...] Volume Laterality 01/03/2010 8:50 AM 0 8:59 FLUID DYNAMICIST AM FLUID DYNAMICIST Ciro Silvestre MD LAB - BLOOD ORDERABLES Performing Organization Address City/State/ZIP Code Phon e Number MISYS D dimer quantitative (01/03/2010 8:50 AM FLUID DYNAMICIST) athologist Signature D Dimer 0.4 0.0 - 0.50 MISYS ug/ml FEU Specimen Anatomical Collection Method Collection Time Receive d Time (Source) Location / / Volume Laterality 01/03/2010 8:50 AM 0 8:59 FLUID DYNAMICIST AM FLUID DYNAMICIST Ciro Silvestre MD LAB - BLOOD ORDERABLES Performing Organization Address City/State/ZIP Code Phon e Number MISYS (ABNORMAL) Comprehensive metabolic panel (01/03/2010 8:50 AM FLUID DYNAMICIST) athologist Signature Sodium 139 133 - 144 [...] Volume Laterality 01/03/2010 8:50 AM 0 8:59 FLUID DYNAMICIST AM FLUID DYNAMICIST Ciro Silvestre MD LAB - BLOOD ORDERABLES Performing Organization Address City/State/ZIP Code Phon e Number MISYS Troponin I (01/03/2010 8:50 AM FLUID DYNAMICIST) P athologist Signature Troponin I ES 0.029 0.000 - MISYS 0.034 ug/L Specimen Anatomical Collection Method Collection Time Receive d Time (Source) Location / / Volume Laterality 01/03/2010 8:50 AM 0 8:59 FLUID DYNAMICIST AM FLUID DYNAMICIST Ciro Silvestre MD LAB - BLOOD ORDERABLES Performing Organization Address City/State/ZIP Code Phon e Number MISYS TSH with free T4 reflex (01/03/2010 8:50 AM FLUID DYNAMICIST) athologist Signature TSH 4.82 0.4 - 5.0 MISYS mU/L Specimen Anatomical Collection Method Collection Time Receive d Time (Source) Location / / Volume Laterality 01/03/2010 8:50 AM 0 8:59 FLUID DYNAMICIST AM FLUID DYNAMICIST Ciro Silvestre MD LAB - BLOOD ORDERABLES Performing Organization Address City/State/ZIP Code Phon e Number MISYS documented in this encounter Visit Diagnoses Not on filedocumented in this encounter
--- OUTSIDE RECORDS SUMMARY | 2022-08-17 02:12 | XMS_ITS | Encounter Summary ---
:1940 Author Organization [facility] Address [address] [place] [address] Care Team Providers Name Role Phone Unavailable Primary Care Provider Unavailable Encounter Details Date Type Department Care Team Description 12/08/2007 Historic Results Allergy and Asthma Ortiz Shay Phillips-Wangensteen MD Building XXX RESIGNED XXX 2nd Floor, Clinic [address]A [address] [id number] [facility] [address] [place] [address] [phone] Social History Tobacco Use Types Packs/Day Years Used Date Smoking Tobacco: Never Assessed Sex Assigned at Date Recorded Not on file documented as of this encounter Plan of Treatment Not on filedocumented as of this encounter Procedures Procedure Name Priority Date/Time Associated Diagnosis Comme nts HISTAMINE URINE Routine 12/08/2007 7:45 AM Result s for this FOOD SERVICE ATTENDANT procedure are i n the results section. documented in this encounter Results Histamine urine (12/08/2007 7:45 AM FOOD SERVICE ATTENDANT) athologist Signature Histamine 55 MISYS Urine/Volume Comment: Unit: nmol/L Histamine Urine/G Creatinine 54 M ISYS Comment: Reference range: 0 to 386 Unit: nmol/g (Note) TEST INFORMATION: ??Histamine, Urine nmo l/g creat This test uses a kit designated by the mike aldana as for research use, not for clinical use. The performance characteristics of this test were valida beltran by [employer] The U.S. Food and Kojo g Administration (FDA) has not approved this test. The re sults are not intended to be used as the sole means fo r clinical diagnosis or patient management decision s. CHAD is authorized under Clinical Laboratory Imp rovement Amendments (CLIA) and by all states to p erform high- complexity testing. Creatinine For Histamine 24 H/Random Urine 101 MISYS Comment: Unit: mg/dL (Note) Performed by [employer], [address], [place] [address] [email or web address], ??Kenny Hoffmann MD - Lab. Director Specimen Anatomical Collection Method Collection Time Receive d Time (Source) Location / / Volume Laterality 12/08/2007 7:45 AM 8 FOOD SERVICE ATTENDANT 12:03 PM FOOD SERVICE ATTENDANT Ortiz Shay MD LAB - URINE ORDERABLES Performing Organization Address City/State/ZIP Code Phon e Number MISYS documented in this encounter Visit Diagnoses Not on filedocumented in this encounter
--- OUTSIDE RECORDS SUMMARY | 2022-08-17 02:12 | XMS_ITS | Encounter Summary ---
:1940 Author Organization [place] Address [address] [place] [address] Care Team Providers Name Role Phone Unavailable Primary Care Provider Unavailable Encounter Details Date Type Department Care Team Description 01/03/2010 Historic Results INTERFACED REPORT Manuel Silvestre MD EMERGENCY PHYSIC [place] [address] [place], [place] [address] (Wo rk) Social History Tobacco Use Types Packs/Day Years Used Date Smoking Tobacco: Never Assessed Sex Assigned at Date Recorded Not on file documented as of this encounter Plan of Treatment Not on filedocumented as of this encounter Procedures Procedure Name Priority Date/Time Associated Diagnosis Comme [facility] EKG 12 LEAD Routine 01/03/2010 8:55 AM Results f or this INVENTORY CONTROL PLANNER procedure are i n the results section . documented in this encounter Results EKG 12 LEAD (01/03/2010 8:55 AM INVENTORY CONTROL PLANNER) [facility] Method Time Signature Ventricular Rate 98 BPM RADIOLOGY RESULTS Atrial Rate 98 BPM RADIOLOGY RESULTS CO Interval 188 ms RADIOLOGY RESULTS QRS Duration 100 ms RADIOLOGY RESULTS QT 332 ms RADIOLOGY RESULTS QTc 423 ms RADIOLOGY RESULTS R AXIS 7 degrees RADIOLOGY RESULTS [place] 28 degrees RADIOLOGY RESULTS Interpretation Sinus rhythm [...] Volume Laterality 01/03/2010 8:55 AM 0 9:19 INVENTORY CONTROL PLANNER AM INVENTORY CONTROL PLANNER Ciro Silvestre MD ECG ORDERABLES Performing Organization Address City/State/ZIP Code Phon e Number RADIOLOGY RESULTS documented in this encounter Visit Diagnoses Not on filedocumented in this encounter
--- OUTSIDE RECORDS SUMMARY | 2022-08-17 02:12 | XMS_ITS | Encounter Summary ---
:1940 Author Organization [place] Address [facility] [place] [address] Care Team Providers Name Role Phone Unavailable Primary Care Provider Unavailable Reason for Visit Reason Onset Date Comments Sinus Problem 10/23/2011 Encounter Details Date Type Department Care Team Description 10/23/2011 Telephone Consultants-Internal Medicine Bobbi Corral RN Sinus Problem [address] [facility] [address] [place] [address] Social History Tobacco Use Types Packs/Day Years Used Date Smoking Tobacco: Never Assessed Sex Assigned at Date Recorded Not on file documented as of this encounter Miscellaneous Notes Telephone Encounter - Jcarlos Diaz - 10/23/2011 3:52 PM CST PATIENT CALLED SAYING HE HAS SEMI-ANNUAL SINUS INFECTION ALONG WITH HEAVY HEAD COLD. ASKING FOR RX FOR Z-KATE AT [facility]. PHONE # IS [phone] EEP Telephone Encounter - Jcarlos Diaz - 10/23/2011 3:49 PM CST PATIENT CALLED SAYING HE HAS SEMI-ANNUAL SINUS INFECTION ALONG WITH A HEAVY HEAD COLD INFECTION. HEAVY HEAD COLD, EEP documented in this encounter Plan of Treatment Not on filedocumented as of this encounter Visit Diagnoses Diagnosis Acute maxillary sinusitis - Primary documented in this encounter
--- OUTSIDE RECORDS SUMMARY | 2022-08-17 02:12 | XMS_ITS | Encounter Summary ---
:1940 Author Organization [place] Address [address] [facility] [place] [address] Care Team Providers Name Role Phone Unavailable Primary Care Provider Unavailable Encounter Details Date Type Department Care Team Description 02/16/2008 Specialty Clinic Note [facility] Eron Mandel (Travel Professional) Oncology MD [place] [address] [address] [place], [place] [address] Social History Tobacco Use Types Packs/Day Years [...] is now currently taking classes at the [employer] [employer] [facility] in [facility]. OBJECTIVE: The patient is alert and oriented [...] MD MT: britni Name: REBEKAH XIONG Account: [id number] : 1940 Visit Date: 02/16/2008 Document: [id number] cc: Ko Aguirre MD documented in this encounter Plan of Treatment Not on filedocumented as of this encounter Visit Diagnoses Not on filedocumented in this encounter
--- OUTSIDE RECORDS SUMMARY | 2022-08-17 02:12 | XMS_ITS | Encounter Summary ---
:1940 Author Organization [facility] Address [address] [place] [address] Care Team Providers Name Role Phone Unavailable Primary Care Provider Unavailable Encounter Details Date Type Department Care Team Description 01/03/2010 Historic Results INTERFACED REPORT Manuel Silvestre MD EMERGENCY PHYSIC [facility] [address] [place], [place] [address] (Wo rk) Social History Tobacco Use Types Packs/Day Years Used Date Smoking Tobacco: Never Assessed Sex Assigned at Date Recorded Not on file documented as of this encounter Plan of Treatment Not on filedocumented as of this encounter Procedures Procedure Name Priority Date/Time Associated Diagnosis Comme nts EKG 12 LEAD Routine 01/03/2010 8:49 AM Results f or this EDITOR NEWS procedure are i n the results section . documented in this encounter Results EKG 12 LEAD (01/03/2010 8:49 AM EDITOR NEWS) Component Value Ref Range Test Analysis Performed Pathologis t Method Time At Signature Ventricular Rate 165 BPM RADIOLOGY RESULTS Atrial Rate 166 BPM RADIOLOGY RESULTS QRS Duration 92 ms RADIOLOGY RESULTS QT 282 ms RADIOLOGY RESULTS QTc 467 ms RADIOLOGY RESULTS R AXIS 16 degrees RADIOLOGY RESULTS T [place] 12 degrees RADIOLOGY RESULTS Interpretation Supraventricular tachycardia RADIOLOGY ECG Incomplete right bundle branch block RESULTS Nonspecific ST abnormality Abnormal ECG No previous ECGs available Specimen Anatomical Collection Method Collection Time Receive d Time (Source) Location / / Volume Laterality 01/03/2010 8:49 AM 0 8:59 EDITOR NEWS AM EDITOR NEWS Ciro Silvestre MD ECG ORDERABLES Performing Organization Address City/State/ZIP Code Phon e Number RADIOLOGY RESULTS documented in this encounter Visit Diagnoses Not on filedocumented in this encounter
--- OUTSIDE RECORDS SUMMARY | 2022-08-17 02:12 | XMS_ITS | Encounter Summary ---
:1940 Author Organization [place] Address [address] [place] [address] Care Team Providers Name Role Phone Carlos Alberto Corral MD Primary Care Provider Reason for Visit Reason Comments Tachycardia history afib, states feels l radames hr is fast, sob, shaky Encounter Details Date Type Department Care Team Description 02/17/2014 Emergency [facility] Farida Branham, Hyp ertension (Primary Dx); Dorothy Emergency Palpitations Dept [facility] [address] [place] [address] [place] [phone] [address] [place] [id number] (Wo rk) Social History Tobacco Use Types [...] Care Everywhere. HYPERTENSION, ESTABLISHED, OUT OF CONTROL (ARABIC)documented in this encounter Medications at Time of [...] Course ECG @ 11:16 Rate 88 bpm. MI interval 156 ms. QRS duration 102 ms. [...] 2:55 PM I spoke with Dr. Whitman, air transportation provider for the patient's PCP. Dr. Corral. Findings [...] 02/17/2014 EMERGENCY DEPARTMENT Farida Branham MD 02/17/14 0383 documented in this encounter Plan of Treatment [...] ES <0.012 0.000 - [facility] 0.034 ug/L [facility] Specimen Anatomical Collection Method Collection Time Receive d Time (Source) Location / / Volume Laterality Blood specimen 02/17/2014 11:48 4 (specimen) AM CDT 12:24 PM CDT Farida Branham MD LAB - BLOOD ORDERABLES Performing Organization Address City/State/ZIP Code Phon e Number [facility] [address] [place] [address] [facility] (ABNORMAL) Comprehensive metabolic panel (02/17/2014 11:48 AM CDT) Analysis Performed At Patho logist Time Signature Sodium 143 133 - 144 [place] mmol/L [facility] Potassium 4.3 3.4 - 5.3 [place] mmol/L [facility] Chloride 101 94 - 109 [place] mmol/L [facility] Carbon Dioxide 28 20 - 32 [place] mmol/L [facility] Anion Gap 14 6 - 17 [place] mmol/L [facility] Glucose 129 (H) 60 - 99 [place] mg/dL [facility] Urea Nitrogen 21 7 - 30 [place] mg/dL [facility] Creatinine 1.04 0.66 - [place] 1.25 mg/dL [facility] GFR Estimate 70 >60 [place] mL/min/1.[address] LAB GFR Estimate If 85 >60 [place] Black mL/min/1.[address] LAB Calcium 8.9 8.5 - 10.4 [place] mg/dL [facility] Bilirubin Total 0.9 0.2 - 1.3 [place] mg/dL [facility] Albumin 4.1 3.3 - 4.9 [place] g/dL [facility] Protein Total 7.1 6.8 - 8.8 [place] g/dL [facility] Alkaline 64 40 - 150 [place] Phosphatase U/L [facility] ALT 41 0 - 70 U/L [facility] AST 40 0 - 45 U/L [facility] Specimen Anatomical Collection Method Collection Time Receive d Time (Source) Location / / Volume Laterality Blood specimen 02/17/2014 11:48 4 (specimen) AM CDT 12:24 PM CDT Farida Branham MD LAB - BLOOD ORDERABLES Performing Organization Address City/State/ZIP Code Phon e Number [facility] [address] [place], [place] [address] [phone] [facility] CBC with platelets + differential (02/17/2014 11:48 AM CDT) [facility] gist Method Time Signature WBC 6.0 4.0 - [place] 11.0 [facility] 10e9/[facility] RBC Count 4.66 4.4 - 5.9 [place] 10e12/L [facility] Hemoglobin 13.8 13.3 - [place] 17.7 g/dL [facility] Hematocrit 42.4 40.0 - [place] 53.0 % [facility] MCV 91 78 - 100 [place] fl [facility] MCH 29.6 26.5 - [place] 33.0 pg [facility] MCHC 32.5 31.5 - [place] 36.5 g/dL [facility] RDW 14.0 10.0 - [place] 15.0 % [facility] Platelet Count 222 150 - 450 [place] 10e9/L [facility] Diff Method Automated [facility] % Neutrophils 71.0 % [facility] % Lymphocytes 19.6 % [facility] % Monocytes 5.7 % [facility] % Eosinophils 3.2 % [facility] % Basophils 0.2 % [facility] % Immature 0.3 % [place] Granulocytes [facility] Absolute 4.2 1.6 - 8.3 [place] Neutrophil 10e9/L [facility] Absolute 1.2 0.8 - 5.3 [place] Lymphocytes 10e9/L [facility] Absolute 0.3 0.0 - 1.3 [place] Monocytes 10e9/L [facility] Absolute 0.2 0.0 - 0.7 [place] Eosinophils 10e9/L [facility] Absolute 0.0 0.0 - 0.2 [place] Basophils 10e9/L [facility] Abs Immature 0.0 0 - 0.4 [place] Granulocytes 10e9/L [facility] Specimen Anatomical Collection Method Collection Time Receive d Time (Source) Location / / Volume Laterality Blood specimen 02/17/2014 11:48 4 (specimen) AM CDT 12:24 PM CDT Farida Branham MD LAB - BLOOD ORDERABLES Performing Organization Address City/State/ZIP Code Phon e Number [facility] [address] [place] [address] [phone] [facility] TSH with free T4 reflex (02/17/2014 11:48 AM CDT) P athologist Signature TSH 4.32 0.4 - 5.0 [place] mU/[facility] Specimen Anatomical Collection Method Collection Time Receive d Time (Source) Location / / Volume Laterality Blood specimen 02/17/2014 11:48 4 (specimen) AM CDT 12:24 PM CDT Farida Branham MD LAB - BLOOD ORDERABLES Performing Organization Address City/State/ZIP Code Phon e Number [facility] [address] [place], [place] [address] [facility] EKG 12-lead, tracing only (02/17/2014 11:16 AM CDT) Patholo gist Method Time Signature Interpretation ECG Click View RADIOLOGY Image link RESULTS to view waveform and result Specimen (Source) Anatomical Collection Method Collection Time Re ceived Time Location / / Volume Laterality 02/17/2014 11:16 AM CDT Farida Branhma MD ECG ORDERABLES Performing Organization Address City/State/ZIP [...] 60. documented in this encounter Care Teams Development Administrator Relationship Specialty Start Date End Date Carlos Alberto Corral MD PCP - General Internal Medicine 10/15/12 09/18/[address] [address] documented as of this encounter
--- OUTSIDE RECORDS SUMMARY | 2022-08-17 02:12 | XMS_ITS | Encounter Summary ---
:1940 Author Organization [place] Address [address] [place] [address] Care Team Providers Name Role Phone Maikel Brock Primary Care Provider Reason for Visit Reason Comments Hematuria Encounter Details Date Type Department Care Team Description 09/19/2017 Emergency [facility] Danica Gloria MD [facility] Emergency Dept [facility] [address] [facility] [address] [place], [place] [phone] Social History Tobacco Use Types Packs/Day Years [...] Comments Blood Pressure 148/81 09/19/2017 12:54 PM STEM DRYER MAINTAINER Pulse - - Temperature 36.6 ??C (97.9 ??F) 09/19/2017 9:41 AM STEM DRYER MAINTAINER Respiratory Rate 20 09/19/2017 12:54 PM STEM DRYER MAINTAINER Oxygen Saturation 94% 09/19/2017 12:54 Simultaneous filing. PM STEM DRYER MAINTAINER User may not hav e seen previous data. Inhaled Oxygen - - Concentration Weight 101.6 kg (224 lb) 09/19/2017 9:41 AM STEM DRYER MAINTAINER Height 172.7 cm (5' 8) 09/19/2017 9:41 AM STEM DRYER MAINTAINER Body Mass Index 34.06 09/19/2017 9:41 AM STEM DRYER MAINTAINER documented in this encounter Discharge Instructions Discharge [...] easy bruising Date Last Reviewed: 06/26/2016 ?? [phone] [employer]. [address] [place] [address], [place] [address]. All rights reserved. This information is not intended as a substitute for professional medical care. Always follow your healthcare professional's instructions. DRYER MAINTAINER documented in this encounter Medications at Time [...] Patient to US via cart with transport. DRYER MAINTAINER Bonnie Hicks RN - 09/19/2017 9:46 AM CST A&Ox4. ABC's intact. Pt c/o blood and clots in urine that started last week. [facility]. Has a follow appt on at [place], but bleeding has returned. Denies pain. DRYER MAINTAINER Dionte Gloria MD - 09/19/2017 9:29 AM [...] with the urine. The patient went to [facility] in [place] where they placed a Nava catheter and performed a urinalysis, which was negative. The patient went back on Thursday to have the catheter removed since it was irritating him. The patient was instructed to follow-up with urology, and made an appointment at [place] for this 09/24/17. 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 He was unable to receive a prompt appointment with urology in [place] so presents here today. The patient has continued to have symptoms intermittentlyand, although he has a follow-up appointment with [place] [place] scheduled for , came in for further [...] Disposition: Discharged to home Berta Santillan 09/19/2017 [facility] EMERGENCY DEPARTMENT Berta Henley, irma serving as a scribe at 10:52 AM on 09/19/2017 to document services personally performed by Dionte Gloria MD based on my observations and the provider's statements to me. Dionte Gloria MD 09/19/17 1646 DRYER MAINTAINER documented in this encounter Plan of Treatment Not on filedocumented as of this encounter Procedures Procedure Name Priority Date/Time Associated Comments Diagnosis US RENAL COMPLETE STAT 09/19/2017 12:16 Result s for this PM STEM DRYER MAINTAINER procedure are i n the results section. CBC WITH PLATELETS & STAT 09/19/2017 11:15 Res ults for this DIFFERENTIAL AM STEM DRYER MAINTAINER procedure are i n the results section. BASIC METABOLIC PANEL STAT 09/19/2017 11:15 Re sults for this AM STEM DRYER MAINTAINER procedure are i n the results section. ROUTINE UA WITH STAT 09/19/2017 10:40 Results for this MICROSCOPIC AM STEM DRYER MAINTAINER procedure are i n the results section. documented in this encounter Results US Renal Complete (09/19/2017 12:16 PM STEM DRYER MAINTAINER) Anatomical Region Laterality Modality Abdomen/Pelvis Ultrasound Specimen (Source) Anatomical Location Collection Method / Collectio n Time Received Time / Laterality Volume Impressions 09/19/2017 12:48 PM STEM DRYER MAINTAINER IMPRESSION: Negative. SCOOTER ZARCO MD Narrative 09/19/2017 12:48 PM STEM DRYER MAINTAINER ULTRASOUND RENAL COMPLETE ??09/19/2017 12:16 PM HISTORY: [...] (ABNORMAL) Basic metabolic panel (09/19/2017 11:15 AM STEM DRYER MAINTAINER) P athologist Signature Sodium 137 133 - 144 09/19/2017 [facility] mmol/L 11:50 AM [facility] Potassium 4.0 3.4 - 5.3 09/19/2017 [facility] mmol/L 11:50 AM [facility] Chloride 106 94 - 109 09/19/2017 [facility] mmol/L 11:50 AM [facility] Carbon Dioxide 25 20 - 32 09/19/2017 [facility] mmol/L 11:50 AM [facility] Anion Gap 6 3 - 14 09/19/2017 [facility] mmol/L 11:50 AM [facility] Glucose 107 (H) 70 - 99 09/19/2017 [facility] mg/dL 11:50 AM [facility] Urea Nitrogen 17 7 - 30 09/19/2017 [facility] mg/dL 11:50 AM [facility] Creatinine 0.98 0.66 - 09/19/2017 [facility] 1.25 mg/dL 11:50 AM [facility] GFR Estimate 74 >60 09/19/2017 [facility] mL/min/1.7 11:[address] Comment: Non GFR Calc GFR Estimate If 89 >60 mL/min/1.7m2 09/19/2017 11:50 AM [facility] Comment: GFR Calc Calcium 8.5 8.5 - 10.1 mg/dL 09/19/2017 11:50 AM [facility] Specimen Anatomical Collection Method Collection Time Receive d Time (Source) Location / / Volume Laterality Blood specimen 09/19/2017 11:15 7 (specimen) AM STEM DRYER MAINTAINER 11:29 AM STEM DRYER MAINTAINER Dionte Golria MD LAB - BLOOD ORDERABLES Performing Organization Address City/State/ZIP Code [facility] e Number [place] [address] [address] [place] [address] [facility] [address] [phone] CBC with platelets differential (09/19/2017 11:15 AM [facility]) [facility] Method Time Signature WBC 6.9 4.0 - 09/19/2017 [facility] 11.0 11:33 AM [facility] 10e9/L [facility] RBC Count 4.71 4.4 - [...] 09/19/2017 [facility] Monocytes 10e9/L 11:33 AM [facility] Absolute 0.2 0.0 - 0.7 09/19/2017 [...] Blood specimen 09/19/2017 11:15 7 (specimen) AM STEM DRYER MAINTAINER 11:29 AM STEM DRYER MAINTAINER Dionte Gloria MD LAB - BLOOD ORDERABLES Performing Organization Address City/State/ZIP Code Phon e Number [place] [address] [address] [place], [place] [facility] [place] [address] [address] [place], [place] [address] [place] [address] (ABNORMAL) UA with Microscopic (09/19/2017 10:40 AM STEM DRYER MAINTAINER) [facility] Method Time Signature Color Urine Yellow [...] AM [facility] Specific [place] 1.012 1.003 - 09/19/2017 [facility] Urine 1.035 [...] HOSPITAL Mucous Urine Present (A) NEG^Negat 09/19/2017 [facility] emily /LPF 11:06 AM [facility] Hyaline Casts 1 0 - 2 09/19/2017 [facility] 11:06 AM [facility] Specimen (Source) Anatomical Collection Method Collection Time Re ceived Time Location / / Volume Laterality Examination of URINE SPECIMEN 09/19/2017 10:40 017 midstream urine OBTAINED BY CLEAN AM STEM DRYER MAINTAINER 10:53 A M [facility] specimen CATCH PROCEDURE / (procedure) Unknown Paul Edwards MD LAB - URINE ORDERABLES Performing Organization Address City/State/ZIP Code Phon e Number [facility] [place] [address] [address] [place], [place] [address] [facility] [address] [place], [place] [address] [place] [address] documented in this encounter Visit Diagnoses Diagnosis Gross hematuria documented in this encounter Care Teams Naphthalene Operator Helper Relationship Specialty Start Date End Date Maikel Brock PCP - General Family Practice 09/19/17 [facility] [address] [place] [address] documented as of this encounter
--- OUTSIDE RECORDS SUMMARY | 2022-08-17 02:12 | XMS_ITS | Encounter Summary ---
:1940 Author Organization [place] Address [facility] [place] [address] Care Team Providers Name Role Phone Unavailable Primary Care Provider Unavailable Encounter Details Date Type Department Care Team Description 01/03/2010 Emergency room [facility] Se yarelis Silvestre MD [facility] EMERGENCY PHY JOHAN PA Results [address] [place], [place] [address] (Wo rk) Social History Tobacco Use Types Packs/Day Years Used Date Smoking Tobacco: Never Assessed Sex Assigned at Date Recorded Not on file documented as of this encounter Progress Notes Ciro Silvestre - 01/04/2010 5:15 PM DISTRICT BRANCH MANAGER FINAL CHIEF COMPLAINT: Rapid heart rate, shortness of breath and lightheadedness. HISTORY OF PRESENT ILLNESS: Rebekah Xiong is a 69-year-old male who comes in by private vehicle after driving himself here because of feeling his heart racing and feeling a little short of breath costa little lightheaded. This all started about 6:30 this morning and [facility] He denies any chest pain, no lower [...] rapid heart rate. He was connected to bacon skin lifter and pulse oximetry monitor. He had oxygen [...] discharged home with close follow up with [facility] as well as his own primary doctor, [...] EM#[id number] Name: REBEKAH XIONG MRN: [id number] Account: [id number] : 1940 Visit Date: 01/03/2010 Document: [id number] cc: Carlos Alberto Corral MD [facility] RICT BRANCH MANAGER documented in this encounter Plan of Treatment Not on filedocumented as of this encounter Visit Diagnoses Not on filedocumented in this encounter
--- OUTSIDE RECORDS SUMMARY | 2022-08-17 02:12 | XMS_ITS | Encounter Summary ---
:1940 Author Organization [place] Address [facility] [place] [address] Care Team Providers Name Role Phone Carlos Alberto Corral MD Primary Care Provider Maikel Brock Primary Care Provider Encounter Details Date Type Department Care Team Description 03/10/2014 Office Visit-[facility] Rafi Jarvis MD [address] [place] [address] [place] [phone] Social History Tobacco Use Types Packs/Day Years [...] Progress Note Created by: Tyrell Jarvis M.D. [id number] DATE: 03/10/2014 REBEKAH XIONG DATE OF : 1940 AGE: [age] years old Referring Physician: CARLOS ALBERTO CORRAL Referring Clinic: [facility] CURRENT DIAGNOSES 1. - SVT (supraventricular tachycardia), [...] on filedocumented in this encounter Care Teams Fresh Work Wrapper Layer Relationship Specialty Start Date End Date Carlos Alberto Corral MD PCP - General Internal Medicine 10/15/12 09/18/[address] [address] Maikel Brock PCP - General Family Practice 09/19/[address] [address] documented as of this encounter
--- OUTSIDE RECORDS SUMMARY | 2022-08-17 02:12 | XMS_ITS | Encounter Summary ---
:1940 Author Organization [place] Address [address] [place] [address] Care Team Providers Name Role Phone Unavailable Primary Care Provider Unavailable Encounter Details Date Type Department Care Team Description 02/16/2008 Office Visit-[facility] Allergy and Asthma Unknown, [facility] [address] [place] [address] [phone] Social History Tobacco Use Types Packs/Day Years Used Date Smoking Tobacco: Never Assessed Sex Assigned at Date Recorded Not on file documented as of this encounter Progress Notes Unknown, Provider - 02/16/2008 12:45 PM CDT Media Account Executive: Cee Mccann Status: Final Encounter: 16 Feb 2008 Type: Allergy Nurse Note Reason For Visit REBEKAH XIONG is a 67 year old male present today for urticaria and angioedema follow up. Do you have any other appointments of any type today within the [facility] system? (this includes clinic appt's, Imaging, [...] By: Daylin Mccann RN; 02/16/2008 12:17 PM PACKAGING TECHNICIAN. documented in this encounter Plan of Treatment Not on filedocumented as of this encounter Visit Diagnoses Not on filedocumented in this encounter
--- OUTSIDE RECORDS SUMMARY | 2022-08-17 02:12 | XMS_ITS | Encounter Summary ---
:1940 Author Organization [place] Address [address] [place] [address] Care Team Providers Name Role Phone Unavailable Primary Care Provider Unavailable Encounter Details Date Type Department Care Team Description 01/01/2011 Office Visit-[facility] Patricia Mandel MD [address] [place], [place] [phone] Social History Tobacco Use Types Packs/Day Years Used Date Smoking Tobacco: Never Assessed Sex Assigned at Date Recorded Not on file documented as of this encounter Progress Notes Ministerio Eron E - 01/01/2011 9:00 AM CST Dumpman: Romeoearlrose maryEron vazquez Status: Final - Signature Encounter: 01 Jan 2011 Type: Ther Rad Visit FINAL PROBLEM: Adenocarcinoma of prostate, 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 RECTAL: Prostate is flat and smooth. No nodularities. LABS: PSA is 0.21. in October at his [facility] ASSESSMENT AND PLAN: Mr. Mancuso [...] with us today. ERON MANDEL MD Document: [id number] cc: Ko Aguirre MD and Carlos Alberto Corral Electronically signed by:Eron Mandel M.D. Jan 01 2011 9:52AM RECTIFICATION PRINTER IFICATION PRINTER documented in this encounter Plan of Treatment Not on filedocumented as of this encounter Visit Diagnoses Not on filedocumented in this encounter
--- OUTSIDE RECORDS SUMMARY | 2022-08-17 02:12 | XMS_ITS | Encounter Summary ---
:1940 Author Organization [place] Address [facility] [place] [address] Care Team Providers Name Role Phone Carlos Alberto Corral MD Primary Care Provider Maikel Brock Primary Care Provider Encounter Details Date Type Department Care Team Description 03/03/2014 Office Visit-[facility] Jey Parks MD [address] [place] [phone] [place] [address] (Wo rk) Social History Tobacco Use [...] Referring Physician: CARLOS ALBERTO CORRAL Referring Clinic: [facility] CURRENT DIAGNOSES 1. - Shortness of Breath, [...] and 3; Exercise - exercises regularly, elyptical safety trainer, walking and 3-4 x week; REVIEW [...] disease. We will refer him to a recreation director to see if medical therapy with metoprolol [...] 1 week 2. F/U with Any EP HORSE RACING ANALYST/PA 4-7 days, Aliya Raygoza, Marybel Ahumada, Cookie Bragg ONLY 3. Sleep Consult Schedule At [facility] Jey Parks M.D. documented in this encounter Plan of Treatment Not on filedocumented as of this encounter Visit Diagnoses Not on filedocumented in this encounter Care Teams Acid Leveler Relationship Specialty Start Date End Date Carlos Alberto Corral MD PCP - General Internal Medicine 10/15/12 09/18/[address] [address] Maikel Brock PCP - General Family Practice 09/19/[address] [address] documented as of this encounter
--- OUTSIDE RECORDS SUMMARY | 2022-08-17 02:12 | XMS_ITS | Encounter Summary ---
:1940 Author Organization [facility] Address [address] [facility] 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 S h Periop Services Procedures REPAIR PTOSIS BILATERAL [address] [place] [address] Phone: Referral ID Status Reason Start Date Expiration Date Visits Requ ested Visits Authorized [id number] Closed 1 1 Encounter Details Date Type Department Care Team Description 11/02/2012 Hospital Encounter [facility] Devyn Ocampo Post -op pain [place] Phase II MD Darren (Primary Dx) [address] OPHTHALMIC [place] PLAST SURG [phone] [address] [phone] [address] [place] [address] Social History [...] Comments Blood Pressure 162/86 11/02/2012 11:15 AM SALES AGENT [employer] Pulse - - Temperature 36.7 ??C (98.1 ??F) 11/02/2012 8:43 AM SALES AGENT [employer] Respiratory Rate 16 11/02/2012 11:15 AM SALES AGENT [employer] Oxygen Saturation 97% 11/02/2012 11:15 AM SALES AGENT [employer] Inhaled Oxygen Concentration - - Weight 89.8 kg (198 lb) 11/02/2012 8:43 AM SALES AGENT [employer] Height 172.7 cm (5' 8) 11/02/2012 8:43 AM SALES AGENT [employer] Body Mass Index 30.11 11/02/2012 8:43 AM SALES AGENT [employer] documented in this encounter Discharge Instructions Discharge [...] not make important decisions for 24 hours. [facility] Eyelid/Orbital Surgery Discharge Instructions Devyn Ocampo [...] that will not stop with gentle pressure. S AGENT [employer] documented in this encounter Medications at Time [...] Ocampo MD - 10/29/2012 10:49 AM CST S AGENT [employer] documented in this encounter OR Notes OR Anesthesia - Devyn Ocampo MD - 11/05/2012 1:14 PM CST S AGENT [employer] documented in this encounter Miscellaneous Notes Provider Notification - Susi Díaz RN - 11/02/2012 11:19 AM CST Drainage minimal at this time. S AG[employer] Provider Notification - Susi Díaz RN - 11/02/2012 11:[address] Ocampo notified of moderate drainage from right inner canthus, eye pad applied with pressure perDr. Ocampo. S AGENT [employer] Provider Notification - Ally Diaz RN - 11/02/2012 10:58 AM CST Moist ice dressing S AGENT [employer] Provider Notification - Ally Diaz RN - 11/02/2012 10:57 AM CST MOderate bloody drainage from right inner canthus, moist ice pack refreshed S AGENT [employer] Op Note - Devyn Ocampo MD - [...] left the operating room in stable condition. S AGENT [employer] documented in this encounter Plan of Treatment Not on filedocumented as of this encounter Procedures Procedure Name Priority Date/Time Associated Diagnosis Comme nts REPAIR, PTOSIS, 11/02/2012 9:26 AM SALES AGENT [employer] PTOSIS AND [facility] ANICAL BILATERAL PTOSIS OF BILATERAL UPPER LIDS documented in this encounter Visit Diagnoses Diagnosis Post-op pain - Primary Other acute postoperative pain documented in this encounter Administered Medications Inactive Administered Medications - up to 3 most recent administrations Medication Order MAR Action Action Date Dose Rate Site HYDROcodone-acetaminophen 5-325 Given 11/02/2012 11:16 AM SALES AGENT [employer] 1 tablet MG per tablet 1 tablet 1 tablet, Oral, EVERY 6 HOURS PRN, moderate to severe pain, Starting on Thu11/02/12 at 1115, PACU documented in this encounter Active and Recently Administered Medications Times are shown in SALES AG[employer]. PRN Medication Order 10/31/2012 11/01/2012 11/02/2012 erythromycin [...] Intra-procedure documented in this encounter Care Teams Podiatric Surgeon Relationship Specialty Start Date End Date Carlos Alberto Corral MD PCP - General Internal Medicine 10/15/12 09/18/[address] [address] documented as of this encounter
--- OUTSIDE RECORDS SUMMARY | 2022-08-17 02:12 | XMS_ITS | Encounter Summary ---
:1940 Author Organization [place] Address [address] [place] [address] Care Team Providers Name Role Phone Carlos Alberto Corral MD Primary Care Provider Reason for Visit Reason Onset Date Comments Heart Problem 04/11/2014 Encounter Details Date Type Department Care Team Description 04/11/2014 Telephone [facility] Sleep Omar Berkowitz, Heart Problem Centers [place] LLOYD [address] [facility] [address] [facility] [address] [place] [phone] [place] [phone] (Wo rk) Social History Tobacco Use Types [...] on filedocumented in this encounter Care Teams Knot Cutter Relationship Specialty Start Date End Date Carlos Alberto Corral MD PCP - General Internal Medicine 10/15/12 09/18/[address] [address] documented as of this encounter
--- OUTSIDE RECORDS SUMMARY | 2022-08-17 02:12 | XMS_ITS | Encounter Summary ---
:1940 Author Organization [place] Address [facility] [place] [address] Care Team Providers Name Role Phone Carlos Alberto Corral MD Primary Care Provider Encounter Details Date Type Department Care Team Description 11/02/2012 Anesthesia Event [facility] Mya Dela Cruz MD [facility] PeriOP [address] [place] [address] [place] [address] [...] 16 SpO2: 97% 97% 97% Additional Comments: EXTINGUISHER INSTALLER Anesthesia Preprocedure Evaluation - Henry Dela Cruz [...] benefits and alternatives discussed with: patient or customer assistance representative. Pre-operative diagnosis: @ORPREDX@ @ORPROCALL@ @ALLERGY@ Current [...] no interval change.incomp. RBBB; prostate cancer . EXTINGUISHER INSTALLER documented in this encounter Miscellaneous Notes Anesthesia Care Transfer Note - Jasmin Chang APRN CRNA - 11/02/2012 10:39 AM CST Anesthesia Care Transfer Note Patient: Abraham Mancuso Transferred to: PACU Patient vital signs: stable Airway: none 1036: to par awake, on room air, dentition unchanged from pre-op. EXTINGUISHER INSTALLER documented in this encounter Plan of Treatment Not on filedocumented as of this encounter Visit Diagnoses Not on filedocumented in this encounter Care Teams Wildlife And Game Protector Relationship Specialty Start Date End Date Carlos Alberto Corral MD PCP - General Internal Medicine 10/15/12 09/18/[address] [address] documented as of this encounter
--- OUTSIDE RECORDS SUMMARY | 2022-08-17 02:12 | XMS_ITS | Encounter Summary ---
:1940 Author Organization [place] Address [address] [place] [address] Care Team Providers Name Role Phone Unavailable Primary Care Provider Unavailable Reason for Visit Reason Comments Refill Request Encounter Details Date Type Department Care Team Description 04/21/2012 Refill Consultants-Internal Jessie Corral MD Refill Request Medicine [address] [address] [place] [address] [phone] (Wo rk) Social History Tobacco Use Types Packs/Day Years Used Date Smoking Tobacco: Never Assessed Sex Assigned at Date Recorded Not on file documented as of this encounter Plan of Treatment Not on filedocumented as of this encounter Visit Diagnoses Diagnosis Pure hypercholesterolemia documented in this encounter
--- OUTSIDE RECORDS SUMMARY | 2022-08-17 02:12 | XMS_ITS | Encounter Summary ---
:1940 Author Organization [facility] Address [address] [place] [address] Care Team Providers Name Role Phone Unavailable Primary Care Provider Unavailable Encounter Details Date Type Department Care Team Description 12/06/2007 Office Visit-[facility] Allergy and Asthma Ortiz Shay [place] Building XXX RESIGNED XXX 2nd Floor, Clinic 2A [address] [facility] [address] [address] [phone] Social History Tobacco Use Types Packs/Day Years Used Date Smoking Tobacco: Never Assessed Sex Assigned at Date Recorded Not on file documented as of this encounter Progress Notes Ortiz Shay - 12/06/2007 8:50 AM CST Excavation Laborer: Ortiz Shay Status: Final - Signature Encounter: 06 Dec 2007 Type: Allergy Chart Note Pulmonary, Allergy and Critical Care Department of Medicine [place] Mail Code [address] [place] [address] Office: [phone] Allergy and Asthma Clinic Jesenia [facility] Fifth Floor, Clinic 5A [address] [place] [address] RE: Abraham Mancuso : 1940 [place]: 12/06/2007 [...] by primary care doctor. Ortiz Shay M.D. catalytic case operator Director, Asthma & Allergy Program MB:[email or web address] Electronically signed by:Sanju Shay M.D. Dec 22 2007 5:28PM DIRECTOR OF CATH LAB CTOR OF CATH LAB documented in this encounter Plan of Treatment Not on filedocumented as of this encounter Visit Diagnoses Not on filedocumented in this encounter
--- OUTSIDE RECORDS SUMMARY | 2022-08-17 02:12 | XMS_ITS | Encounter Summary ---
:1940 Author Organization [place] Address [address] [place] [address] Care Team Providers Name Role Phone Unavailable Primary Care Provider Unavailable Encounter Details Date Type Department Care Team Description 01/03/2008 Office Visit-[facility] Allergy and Asthma Ortiz Shay [place] Building XXX RESIGNED XXX 2nd Floor, Clinic 2A [address] [facility] [address] [address] [phone] Social History Tobacco Use Types Packs/Day Years Used Date Smoking Tobacco: Never Assessed Sex Assigned at Date Recorded Not on file documented as of this encounter Progress Notes Ortiz Shay - 01/03/2008 11:20 AM CDT Golf Sales Manager: Ortiz Shay Status: Final - Signature Encounter: 03 Jan 2008 Type: Allergy and Asthma Visit Pulmonary, Allergy and Critical Care Department of Medicine [place] Mail Code [address] [place] [address] Office: [phone] Allergy and Asthma Clinic [place] Fifth Floor, Clinic 5A [address] [place] [address] RE: Abraham Mancuso : 1940 [place]: 01/03/2008 [...] if his symptoms warrant. Ortiz Shay M.D. silver buffer Director, Asthma & Allergy Program MB:laurie Electronically signed by:Sanju Shay M.D. Jan 17 2008 12:42PM FRONT OFFICE AGENT Ortiz Shay - 01/03/2008 11:20 AM CDT Golf Sales Manager: Ortiz Shay Status: Final - Signature Encounter: 03 Jan 2008 Type: Allergy and Asthma Visit Pulmonary, Allergy and Critical Care Department of Medicine [place] Mail Code [address] [place] [address] Office: [phone] Allergy and Asthma Clinic [facility] Fifth Floor, Clinic 5A [address] [place] [address] RE: Abraham Mancuso : 1940 [place]: 01/03/2008 OUTPATIENT VISIT NOTE ADDENDUM: 1. We plan to see how he does with the addition of Periactin. Ortiz Shay M.D. silver buffer Director, Asthma & Allergy Program MB:laurie Electronically signed by:Sanju Shay M.D. Jan 17 2008 12:42PM FRONT OFFICE AGENT documented in this encounter Plan of Treatment Not on filedocumented as of this encounter Visit Diagnoses Not on filedocumented in this encounter
--- OUTSIDE RECORDS SUMMARY | 2022-08-17 02:12 | XMS_ITS | Encounter Summary ---
:1940 Author Organization [place] Address [address] [place] [address] Care Team Providers Name Role Phone Carlos Alberto Corral MD Primary Care Provider Encounter Details Date Type Department Care Team Description 03/06/2014 Historic Results [facility] Heart Unknown, [address] [place] [address] Social History Tobacco Use Types Packs/Day [...] on filedocumented in this encounter Care Teams Rerecording Mixer Relationship Specialty Start Date End Date Carlos Alberto Corral MD PCP - General Internal Medicine 10/15/12 09/18/[address] [address] documented as of this encounter
--- OUTSIDE RECORDS SUMMARY | 2022-08-17 02:12 | XMS_ITS | Encounter Summary ---
:1940 Author Organization [place] Address [address] [place] [address] Care Team Providers Name Role Phone Carlos Alberto Corral MD Primary Care Provider Encounter Details Date Type Department Care Team Description 01/09/2010 Historic Results [facility] Heart Unknown, [facility] [address] [place] [address] Social History Tobacco Use Types Packs/Day [...] on filedocumented in this encounter Care Teams Information Manager Relationship Specialty Start Date End Date Carlos Alberto Corral MD PCP - General Internal Medicine 10/15/12 09/18/[address] [address] documented as of this encounter
--- OUTSIDE RECORDS SUMMARY | 2022-08-17 02:12 | XMS_ITS | Encounter Summary ---
:1940 Author Organization [place] Address [address] [place] [address] Care Team Providers Name Role Phone Unavailable Primary Care Provider Unavailable Encounter Details Date Type Department Care Team Description 01/03/2010 Results Only [facility] Konrad, Se yarelis Wilhelm MD [facility] EMERGENCY MISA PRADO PA Results [address] [place], [place] [address] (Wo rk) Social History Tobacco Use Types Packs/Day Years Used Date Smoking Tobacco: Never Assessed Sex Assigned at Date Recorded Not on file documented as of this encounter Plan of Treatment Not on filedocumented as of this encounter Procedures Procedure Name Priority Date/Time Associated Diagnosis Comme nts CHEST TWO VIEWS, Routine 01/03/2010 9:31 AM Re sults for this FRONT/LAT SOLVENT PLANT TREATER procedure are i n the results section. documented in this encounter Results CHEST X-RAY 2 VW (01/03/2010 9:31 AM SOLVENT PLANT TREATER) Anatomical Region Laterality Modality Other Specimen (Source) Anatomical Collection Method Collection Time Re ceived Time Location / / Volume Laterality 01/03/2010 9:31 AM SOLVENT PLANT TREATER Impressions 01/07/2010 2:51 AM CDT CHEST TWO VIEW January 03, 2010 9:31:00 AM HISTORY: Chest pain. COMPARISON: None. FINDINGS: No evidence for acute disease. Ciro Silvestre MD GENERAL IMAGING documented in this encounter Visit Diagnoses Not on filedocumented in this encounter
--- OUTSIDE RECORDS SUMMARY | 2022-08-17 02:12 | XMS_ITS | Encounter Summary ---
:1940 Author Organization [facility] Address [address] [place] [address] Care Team Providers Name Role Phone Unavailable Primary Care Provider Unavailable Encounter Details Date Type Department Care Team Description 01/18/2007 Historic Results INTERFACED REPORT Interface, Wade goisn MD Social History Tobacco Use Types Packs/Day [...] function test procedure (01/18/2007 9:14 AM CDT) [facility] Method Time Signature Pulmonary RADIOLOGY Function Test Name: ? REBEKAH XIONG ?ID: ?[id number] RESULTS Doctor: ?TAJ, MAL PATSY ? Height: ? 69.00 in ? Age: ?66 Tech: ? PETER RAGSDALE R ? Weight: ? 189.40 lbs ?? Sex: ?Male Date: ?01/18/2007 ?Time: ??09:14:00 AM ? Race: ? <Unspecified> Secondary ID: PT ID: ? [id number] ? Doctor ID: Change Status: Diagnosis: ?ALLERGIES [...]
--- OUTSIDE RECORDS SUMMARY | 2022-08-17 02:12 | XMS_ITS | Encounter Summary ---
:1940 Author Organization [place] Address [address] [place] [address] Care Team Providers Name Role Phone Carlos Alberto Corral MD Primary Care Provider Reason for Visit Reason Comments Heart Problem Encounter Details Date Type Department Care Team Description 03/08/2014 Care Coordination [facility] Sleep Terrell Faust Heart Problem Centers [place] Rg MD [address] [facility] [address] [place] [address] [address] [place] [address] [place] [phone] Social History Tobacco Use Types Packs/Day Years [...] - 03/08/2014 4:59 PM CDT Scan of [facility] heart referral, H&P Dr Parks, 03/03/2014. Route [...] dysrhythmias documented in this encounter Care Teams Employment Attorney Relationship Specialty Start Date End Date Carlos Alberto Corral MD PCP - General Internal Medicine 10/15/12 09/18/[address] [address] documented as of this encounter
--- OUTSIDE RECORDS SUMMARY | 2022-08-17 02:12 | XMS_ITS | Encounter Summary ---
:1940 Author Organization [place] Address [address] [place] [address] Care Team Providers Name Role Phone Unavailable Primary Care Provider Unavailable Encounter Details Date Type Department Care Team Description 01/03/2008 Office Visit-[facility] Asthma [facility] Clinic [address] [place] [phone] Social History Tobacco Use Types Packs/Day Years Used Date Smoking Tobacco: Never Assessed Sex Assigned at Date Recorded Not on file documented as of this encounter Progress Notes Unknown, Provider - 01/03/2008 11:20 AM CDT Horse Stud Manager: Maria Ines Bowens Status: Amended, Unsigned Encounter: 03 Jan 2008 Type: Allergy Nurse Note Reason For Visit Follow up Test results. 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 Allergies Aspirin TABS Other Penicillins Sulfa Drugs Amended By: Maria Ines Bowens ; 01/03/2008 11:22 AM NET DEVELOPER WITH [facility]. Current Meds The medications listed below were [...] 0. Signature Signed By: Maria Ines Bowens [facility]; 01/03/2008 11:22 AM NET DEVELOPER WITH [facility]. documented in this encounter Plan of Treatment Not on filedocumented as of this encounter Visit Diagnoses Not on filedocumented in this encounter
--- OUTSIDE RECORDS SUMMARY | 2022-08-17 02:12 | XMS_ITS | Encounter Summary ---
:1940 Author Organization [place] Address [facility] [place] [address] Care Team Providers Name Role Phone Unavailable Primary Care Provider Unavailable Encounter Details Date Type Department Care Team Description 02/16/2008 Office Visit-[facility] Allergy and Asthma Ortiz Shay [place] Building XXX RESIGNED XXX 2nd Floor, Clinic 2A [address] [place] [id number] [facility] [address] [place] [address] [phone] Social History Tobacco Use Types Packs/Day Years Used Date Smoking Tobacco: Never Assessed Sex Assigned at Date Recorded Not on file documented as of this encounter Progress Notes Ortiz Shay - 02/16/2008 12:45 PM CDT Commercial Leasing Manager: Ortiz Shay Status: Final - Signature [...] was allergic as a child ASA = [facility] told him to avoid salicylates based on a lab test that was done on him in the s Social History with three grown children, retired from [employer]. Family History Father had hay fever [...] signed by:Oscar Kelly Feb 16 2008 1:54PM PLAYGROUND ATTENDANT Electronically signed by:Sanju Shay M.D. Feb 16 2008 5:48PM PLAYGROUND ATTENDANT documented in this encounter Plan of Treatment Not on filedocumented as of this encounter Visit Diagnoses Not on filedocumented in this encounter
--- OUTSIDE RECORDS SUMMARY | 2022-08-17 02:12 | XMS_ITS | Encounter Summary ---
:1940 Author Organization [place] Address [address] [place] [address] Care Team Providers Name Role Phone Maikel Brock Primary Care Provider Reason for Visit Reason Comments Hematuria gross hem Encounter Details Date Type Department Care Team Description 09/23/2017 Office Visit [facility] Racquel Diaz, Gross hematuria U[facility] JOHN (Primary Dx) [address] [place], [place] [address] [place] [address] [phone] [address] (Work) [phone] Social History Tobacco Use Types Packs/Day Years [...] - - Pulse 60 09/23/2017 4:07 PM PATROL SERGEANT Temperature - - Respiratory Rate - - Oxygen Saturation 96% 09/23/2017 4:07 PM PATROL SERGEANT Inhaled Oxygen Concentration - - Weight 101.6 kg (224 lb) 09/23/2017 4:07 PM PATROL SERGEANT Height 172.7 cm (5' 8) 09/23/2017 4:07 PM PATROL SERGEANT Body Mass Index 34.06 09/23/2017 4:07 PM PATROL SERGEANT documented in this encounter Patient Instructions Patient InstructionsRacquel Diaz PA-C - 09/23/2017 4:00 PM CST -Urinalysis and urine culture to rule out an infection. - Urine cytology to look for abnormal cells. - CT scan. Please call [phone] to schedule this at [facility]. This should be done 1-2 days prior to appointment with the Urologist. - Cystoscopy with the first available urologist to evaluate the interior of the bladder. Follow up as recommended by urologist performing evaluation. OL SERGEANT documented in this encounter Progress Notes Racquel [...] RT) who presented to the ER in [place] with gross hematuria on09/19/17. The patient states he first noticed the hematuria this past Thursday09/14/17. He states it has been ongoing since then and happens every day, but does not happen all day long. He notes he sometimes passes clots with the urine. The patient went to [facility] in [place] where they placed a Nava catheter and performed a urinalysis, which was negative. The patient went back on Thursday to have the catheter removed since it was irritating him. The patient was instructed to follow-up with urology, and made an appointment at [place] for this 09/24/17. The patient continues to [...] ; Surgeon: Devyn Ocampo MD; Location: [facility] ??? THYROIDECTOMY Current Outpatient Prescriptions Medication Sig [...] ?? The right kidney measures 9.3 cm [id number]. No mass or obstruction. ?? The left kidney measures 10.4 cm [id number]. No mass or obstruction. ?? The bladder [...] and coordination of care. Racquel Diaz PA-C [facility] Urology OL SERGEANT documented in this encounter Nursing Notes Cristo Rosenberg CMA - 09/23/2017 4:00 PM CST Pt in and out of ED for gross hem. Pt has imaging in [place]. Pt in and out of ED for blood in the urine. Darius Rosenberg CMA OL SERGEANT documented in this encounter Plan of Treatment Not on filedocumented as of this encounter Procedures Procedure Name Priority Date/Time Associated Comments Diagnosis URINE MACROSCOPIC Routine 09/23/2017 4:17 PM Gross hematuria R esults for this ONLY PATROL SERGEANT procedure are i n the results section. documented in this encounter Results CT Abdomen Pelvis w/o Contrast (10/21/2017 3:47 PM PATROL SERGEANT) Anatomical Region Laterality Modality Abdomen/Pelvis, SUBRAD CT BODY, UMP CT ABDOMEN PELVIS, Computed Tomography RAD CT Specimen (Source) Anatomical Location Collection Method / Collectio n Time Received Time / Laterality Volume Impressions 10/22/2017 7:56 AM PATROL SERGEANT IMPRESSION: No urinary tract calculi or hydronephrosis. Prostate gland is not enlarged but a few prostatic calc ifications are present. Follow-up as clinically warranted. MEGA WILSON MD Narrative 10/22/2017 7:[address] ABDOMEN AND PELVIS WITHOUT CONTRAST 10/21/2017 [...] (ABNORMAL) UA without Microscopic (09/23/2017 4:17 PM [facility]) [facility] Method Time Signature Color Urine Yellow 09/23/2017 [facility] 4:21 PM [facility] Appearance Urine Clear 09/23/2017 [facility] 4:21 PM [facility] Glucose Urine Negative NEG^Negat 09/23/2017 [facility] emily mg/dL 4:21 PM [facility] Bilirubin Urine Negative NEG^Negat 09/23/2017 [facility] emily 4:21 PM [facility] Ketones Urine Negative NEG^Negat 09/23/2017 [facility] emily mg/dL 4:21 PM [facility] Specific [place] 1.015 1.003 - 09/23/2017 [facility] Urine 1.035 4:21 PM [facility] Blood Urine Moderate (A) NEG^Negat 09/23/2017 [facility] emily 4:21 PM [facility] pH Urine 6.0 5.0 - 7.0 09/23/2017 [facility] pH 4:21 PM [facility] Protein Albumin 100 (A) NEG^Negat 09/23/2017 [facility] Urine emily mg/dL 4:21 PM [facility] Urobilinogen 0.2 0.2 - 1.0 09/23/2017 [facility] Urine EU/dL 4:21 PM PATROL SERGEANT [facility] Nitrite Urine Negative NEG^Negat 09/23/2017 [facility] emily 4:21 PM PATROL SERGEANT [facility] Leukocyte Negative NEG^Negat 09/23/2017 [facility] Esterase Urine emily 4:21 PM PATROL SERGEANT [facility] Source Midstream 09/23/2017 [facility] Urine 4:21 PM PATROL SERGEANT [facility] Specimen (Source) Anatomical Collection Method Collection Time Re ceived Time Location / / Volume Laterality Examination of 09/23/2017 4:17 09/23/2017 4:18 midstream urine PM PATROL SERGEANT PM PATROL SERGEANT specimen (procedure) Racquel Diaz PA-C LAB - URINE ORDERABLES Performing Organization Address City/State/ZIP Code Phon e Number [facility] [address] [place] [address] [facility] [address] documented in this encounter Visit Diagnoses Diagnosis Gross hematuria - Primary Gross hematuria documented in this encounter Care Teams Sewing Machine Operator Floorperson Relationship Specialty Start Date End Date Maikel Brock PCP - General Family Practice 09/19/[address] [address] documented as of this encounter
--- OUTSIDE RECORDS SUMMARY | 2022-08-17 02:12 | XMS_ITS | Encounter Summary ---
:1940 Author Organization [place] Address [facility] [place] [address] Care Team Providers Name Role Phone Carlos Alberto Corral MD Primary Care Provider Reason for Visit Reason Onset Date Comments Call To Schedule Appointment 03/28/2014 [facility] calling to [facility] Encounter Details Date Type Department Care Team Description 03/28/2014 Telephone [facility] Omar Berkowitz Call To Schedule [facility] Aniya Rg MD Appointment ([facility] [address] [facility] [address] [facility] S slee p center calling to [address]) [address] [place] [address] [place] [address] [phone] Social History Tobacco Use Types Packs/Day Years [...] on filedocumented in this encounter Care Teams Resource Manager Relationship Specialty Start Date End Date Carlos Alberto Corral MD PCP - General Internal Medicine 10/15/12 09/18/[address] [address] documented as of this encounter
--- OUTSIDE RECORDS SUMMARY | 2022-08-17 02:12 | XMS_ITS | Encounter Summary ---
:1940 Author Organization [place] Address [address] [place] [address] Care Team Providers Name Role Phone Unavailable Primary Care Provider Unavailable Encounter Details Date Type Department Care Team Description 01/03/2008 Historic Results Allergy and Asthma Ortiz Shay Phillips-Wangensteen MD Building XXX RESIGNED XXX 2nd Floor, Clinic 2A [address] [id number] [facility] [address] [place] [address] [phone] Social History Tobacco Use Types Packs/Day Years [...] Comment: Interp: Class 0 - Negative, Con phd internship 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 Specimen Anatomical Collection Method Collection [...] Comment: Interp: Class 0 - Negative, Con phd internship 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 Specimen Anatomical Collection Method Collection Time Receive d Time (Source) Location / / Volume Laterality 01/03/2008 12:09 01/07/2008 8:13 PM CDT AM CDT Ortiz Shay MD LAB - BLOOD ORDERABLES Performing Organization Address City/[facility]/ZIP Code Phon e Number MISYS Allergen peanut IgE (01/03/2008 12:09 PM CDT) P athologist Signature Allergen Peanut <0.35 <0.35 MIS[facility] KU(A)/L Comment: Interp: Class 0 - Negative, Con phd internship 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 Specimen Anatomical Collection Method Collection Time Receive d Time (Source) Location / / Volume Laterality 01/03/2008 12:09 01/07/2008 8:13 PM CDT AM CDT Ortiz Shay MD LAB - BLOOD ORDERABLES Performing Organization Address City/[facility] Code Phon e Number MISYS Allergen soybean IgE (01/03/2008 12:09 PM CDT) P athologist Signature Allergen <0.35 <0.35 MISYS Soybean IgE KU(A)/L Comment: Interp: Class 0 - Negative, Con phd internship 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 Specimen Anatomical Collection Method Collection Time Receive d Time (Source) Location / / Volume Laterality 01/03/2008 12:09 01/07/2008 8:13 PM CDT AM CDT Ortiz Shay MD LAB - BLOOD ORDERABLES Performing Organization Address City/[facility] Code Phon e Number MISYS Allergen milk IgE (01/03/2008 12:09 PM CDT) P athologist Signature Allergen Milk <0.35 <0.35 MISYS KU(A)/L Comment: Interp: Class 0 - Negative, Con phd internship 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 Specimen Anatomical Collection Method Collection Time Receive d Time (Source) Location / / Volume Laterality 01/03/2008 12:09 01/07/2008 8:13 PM CDT AM CDT Ortiz Shay MD LAB - BLOOD ORDERABLES Performing Organization Address City/[facility] Phon e Number MISYS (ABNORMAL) Allergen crab [...] LAB - BLOOD ORDERABLES Performing Organization Address [facility] Code Phon e Number MISYS (ABNORMAL) Allergen [...] LAB - BLOOD ORDERABLES Performing Organization Address [facility] Phon e Number MISYS Allergen tomato IgE (01/03/2008 12:09 PM CDT) P athologist Signature Allergen Tomato <0.35 <0.35 MISYS KU(A)/L Comment: Interp: Class 0 - Negative, Con phd internship 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 Specimen Anatomical Collection Method Collection Time Receive d Time (Source) Location / / Volume Laterality 01/03/2008 12:09 01/07/2008 8:13 PM CDT AM CDT Ortiz Shay MD LAB - BLOOD ORDERABLES Performing Organization Address [facility] Phon e Number MISYS Allergen codfish IgE (01/03/2008 12:09 PM CDT) P athologist Signature Allergen <0.35 <0.35 MISYS Fish(Cod) KU(A)/L Comment: Interp: Class 0 - Negative, Con phd internship 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 Specimen Anatomical Collection Method Collection Time Receive d Time (Source) Location / / Volume Laterality 01/03/2008 12:09 01/07/2008 8:13 PM CDT AM CDT Ortiz Shay MD LAB - BLOOD ORDERABLES Performing Organization Address [facility] Code Phon e Number MISYS Allergen orange IgE (01/03/2008 12:09 PM CDT) P athologist Signature Allergen [place] <0.35 <0.35 MISYS KU(A)/L Comment: Interp: Class 0 - Negative, Con phd internship 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 Specimen Anatomical Collection Method Collection Time Receive d Time (Source) Location / / Volume Laterality 01/03/2008 12:09 01/07/2008 8:13 PM CDT AM CDT Ortiz Shay MD LAB - BLOOD ORDERABLES Performing Organization Address City/[facility]/ZIP Code Phon e Number MISYS Allergen wheat IgE (01/03/2008 12:09 PM CDT) P athologist Signature Allergen Wheat <0.35 <0.35 MISYS KU(A)/L Comment: Interp: Class 0 - Negative, Con phd internship 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 Specimen Anatomical Collection Method Collection Time Receive d Time (Source) Location / / Volume Laterality 01/03/2008 12:09 01/07/2008 8:13 PM CDT AM CDT Ortiz Shay MD LAB - BLOOD ORDERABLES Performing Organization Address City/[facility]/ZIP Code Phon e Number MISYS Allergen tuna IgE (01/03/2008 12:09 PM CDT) P athologist Signature Allergen Tuna <0.35 <0.35 MISYS KU(A)/L Comment: Interp: Class 0 - Negative, Con phd internship 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 Specimen Anatomical Collection Method Collection Time Receive d Time (Source) Location / / Volume Laterality 01/03/2008 12:09 01/07/2008 8:13 PM CDT AM CDT Ortiz Shay MD LAB - BLOOD ORDERABLES Performing Organization Address City/[facility]/ZIP Code Phon e Number MISYS Allergen barley IgE (01/03/2008 12:09 PM CDT) P athologist Signature Allergen Barley <0.35 <0.35 MISYS KU(A)/L Comment: Interp: Class 0 - Negative, Con phd internship 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 Specimen Anatomical Collection Method Collection Time Receive d Time (Source) Location / / Volume Laterality 01/03/2008 12:09 01/07/2008 8:13 PM CDT AM CDT Ortiz Shay MD LAB - BLOOD ORDERABLES Performing Organization Address City/[facility] Code Phon e Number MISYS Allergen corn IgE (01/03/2008 12:09 PM CDT) P athologist Signature Allergen [place] <0.35 <0.35 MISYS KU(A)/L Comment: Interp: Class 0 - Negative, Con phd internship 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 Specimen Anatomical Collection Method Collection Time Receive d Time (Source) Location / / Volume Laterality 01/03/2008 12:01/07/2008 8:13 PM CDT AM CDT Ortiz Shay MD LAB - BLOOD ORDERABLES Performing Organization Address [facility] Phon e Number MIS[facility] Allergen rice IgE (01/03/2008 12:09 PM CDT) P athologist Signature Allergen Rice <0.35 <0.35 MISYS KU(A)/L Comment: Interp: Class 0 - Negative, Con phd internship 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 Specimen Anatomical Collection Method Collection Time Receive d Time (Source) Location / / Volume Laterality 01/03/2008 12:01/07/2008 8:13 PM CDT AM CDT Ortiz Shay MD LAB - BLOOD ORDERABLES Performing Organization Address City/[facility] Phon e Number [facility] documented in this encounter Visit Diagnoses Not on filedocumented in this encounter
--- OUTSIDE RECORDS SUMMARY | 2022-08-17 02:12 | XMS_ITS | Encounter Summary ---
:1940 Author Organization [place] Address [address] [place] [address] Care Team Providers Name Role Phone Carlos Alberto Corral MD Primary Care Provider Reason for Visit (Routine) - Closed Specialty Diagnoses / Procedures Referred By Contact Refer red To Contact Cardiology Diagnoses ECHOCARDIOGRAPHY COMPLETE W/O CONTRAST* Zz Sh Cardiolo gy Img Procedures RADIOLOGY [address] [place] [address] Phone: Referral ID Status Reason Start Date Expiration Date Visits Requ ested Visits Authorized [id number] Closed 03/03/2014 03/03/2015 1 1 Encounter Details Date Type Department Care Team Description 03/06/2014 Hospital Encounter [facility] Suzi Corral MD Radiology - [facility] Heart [facility] [address] [place] [address] [place] [address] [phone] Social History Tobacco Use Types Packs/Day Years [...] COMPLETE WITH [facility]ISON (03/06/2014 1:05 PM CDT) [facility] Method Time Signature [facility] [...] on filedocumented in this encounter Care Teams Miner Operator Relationship Specialty Start Date End Date Carlos Alberto Corral MD PCP - General Internal Medicine 10/15/12 09/18/[address] [address] documented as of this encounter
--- OUTSIDE RECORDS SUMMARY | 2022-08-17 02:12 | XMS_ITS | Encounter Summary ---
:1940 Author Organization [place] Address [address] [place] [address] Care Team Providers Name Role Phone Unavailable Primary Care Provider Unavailable Encounter Details Date Type Department Care Team Description 12/06/2007 Historic Results Allergy and Asthma Ortiz Shay Phillips-Wangensteen MD Building XXX RESIGNED XXX 2nd Floor, Clinic 2A [address] [address] [facility] [address] [place], [place] [address] [phone] Social History Tobacco Use Types Packs/Day Years Used Date Smoking Tobacco: Never Assessed Sex Assigned at Date Recorded Not on file documented as of this encounter Plan of Treatment Not on filedocumented as of this encounter Procedures Procedure Name Priority Date/Time Associated Comments Diagnosis TSH Routine 12/06/2007 10:08 Results for this AM INSULATION HELPER procedure are i n the results section. TRYPTASE Routine 12/06/2007 10:08 Results for this AM INSULATION HELPER procedure are i n the results section. THYROID PEROXIDASE Routine 12/06/2007 10:08 Resul ts for this ANTIBODY AM INSULATION HELPER procedure are i n the results section. T4 FREE Routine 12/06/2007 10:08 Results for this AM INSULATION HELPER procedure are i n the results section. T3 TOTAL Routine 12/06/2007 10:08 Results for this AM INSULATION HELPER procedure are i n the results section. IGE Routine 12/06/2007 10:08 Results for this AM INSULATION HELPER procedure are i n the results section. COMPLEMENT TOTAL Routine 12/06/2007 10:08 Results for this AM INSULATION HELPER procedure are i n the results section. ANTINUCLEAR ANTIBODY Routine 12/06/2007 10:08 Res ults for this SCREEN BY EIA AM INSULATION HELPER procedure are in the results section. documented in this encounter Results Complement total (12/06/2007 10:08 AM INSULATION HELPER) athologist Signature Complement CH50 142 MISYS Total Comment: Reference range: 60 to 144 Unit: (Note) REFERENCE INTERVAL: Complement Activity, Total EIA 59 Units or less .......... Low 60-144 Units .............. Normal 145 Units or greater ...... High Performed by [employer], [address] [place] [address], [facility] [place] [address] [email or web address], ??Kenny Hoffmann MD - Lab. Director Specimen Anatomical Collection Method Collection Time Receive d Time (Source) Location / / Volume Laterality 12/06/2007 10:08 12/06/2007 9:57 AM INSULATION HELPER AM INSULATION HELPER Ortiz Shay MD LAB - BLOOD ORDERABLES Performing Organization Address [facility] Phon e Number MISYS Antinuclear antibody screen by EIA (12/06/2007 10:08 AM INSULATION HELPER) athologist [facility] GABE Screen by 3.3 MISYS EIA Comment: Interpretation: ??Positive GABE screen results > 3 are significant and follow-up testing is recommended. GABE samples are retained in the Protein Lab for 30 days. ??Please contact the laboratory to request additional tests. Specimen Anatomical Collection Method Collection Time Receive d Time (Source) Location / / Volume Laterality 12/06/2007 10:08 12/06/2007 9:57 AM INSULATION HELPER AM INSULATION HELPER Ortiz Shay MD LAB - BLOOD ORDERABLES Performing Organization Address City/[facility] Code Phon e Number MISYS T4 free (12/06/2007 10:08 AM INSULATION HELPER) athologist Signature T4 Free 1.38 0.70 - 1.85 MISYS ng/dL Specimen Anatomical Collection Method Collection Time Receive d Time (Source) Location / / Volume Laterality 12/06/2007 10:08 12/06/2007 9:57 AM INSULATION HELPER AM INSULATION HELPER Ortiz Shay MD LAB - BLOOD ORDERABLES Performing Organization Address [facility] Phon e Number MISYS (ABNORMAL) IgE (12/06/2007 10:08 AM INSULATION HELPER) P athologist Signature IGE 462 (H) 0 - 114 MISYS KIU/L Specimen Anatomical Collection Method Collection Time Receive d Time (Source) Location / / Volume Laterality 12/06/2007 10:08 12/06/2007 9:57 AM INSULATION HELPER AM INSULATION HELPER Ortiz Shay MD LAB - BLOOD ORDERABLES Performing Organization Address [facility] Code Phon e Number MISYS T3 total (12/06/2007 10:08 AM INSULATION HELPER) [facility] gist Method Time Signature Triiodothyronine 121 60 - 181 MISYS (T3) ng/dL Specimen Anatomical Collection Method Collection Time Receive d Time (Source) Location / / Volume Laterality 12/06/2007 10:08 12/06/2007 9:57 AM INSULATION HELPER AM INSULATION HELPER Ortiz Shay MD LAB - BLOOD ORDERABLES Performing Organization Address [facility] Phon e Number MISYS (ABNORMAL) Thyroid peroxidase antibody (12/06/2007 10:08 AM INSULATION HELPER) P athologist Signature Thyroid 74 (H) <35 IU/mL MISYS Peroxidase Antibody Specimen Anatomical Collection Method Collection Time Receive d Time (Source) Location / / Volume Laterality 12/06/2007 10:08 12/06/2007 9:57 AM INSULATION HELPER AM INSULATION HELPER Ortiz Shay MD LAB - BLOOD ORDERABLES Performing Organization Address [facility] Phon e Number MISYS Tryptase (12/06/2007 10:08 AM INSULATION HELPER) P athologist Signature Tryptase 6.3 MISYS Comment: Reference range: 0.4 to 10.9 Unit: ug/L (Note) TEST INFORMATION: Tryptase This test uses a kit designated by the mike aldana as for research use, not for clinical use. The performance characteristics of this test were valida beltran by [employer] The U.S. Food and Kojo g Administration (FDA) has not approved this test. The re sults are not intended to be used as the sole means fo r clinical diagnosis or patient management decision s. [facility] is authorized under Clinical Laboratory Imp rovement Amendments (CLIA) and by all states to p erform high- complexity testing. Performed by [employer], [address], [facility] [place] [address] [email or web address], ??Kenny Hoffmann MD - Lab. Director Specimen Anatomical Collection Method Collection Time Receive d Time (Source) Location / / Volume Laterality 12/06/2007 10:08 12/06/2007 9:57 AM INSULATION HELPER AM INSULATION HELPER Ortiz Shay MD LAB - BLOOD ORDERABLES Performing Organization Address City/State/ZIP Code Phon e Number MISYS TSH (12/06/2007 10:08 AM INSULATION HELPER) athologist Signature TSH 3.18 0.4 - 5.0 MISYS mU/L Specimen Anatomical Collection Method Collection Time Receive d Time (Source) Location / / Volume Laterality 12/06/2007 10:08 12/06/2007 9:57 AM INSULATION HELPER AM INSULATION HELPER Ortiz Shay MD LAB - BLOOD ORDERABLES Performing Organization Address City/State/ZIP Code Phon e Number MISYS documented in this encounter Visit Diagnoses Not on filedocumented in this encounter
--- OUTSIDE RECORDS SUMMARY | 2022-08-17 02:12 | XMS_ITS | Encounter Summary ---
:1940 Author Organization [place] Address [address] [place] [address] Care Team Providers Name Role Phone Unavailable Primary Care Provider Unavailable Encounter Details Date Type Department Care Team Description 02/10/2008 [facility] [place] [address] [address] [place] [address] Social History Tobacco Use Types Packs/Day [...]
--- OUTSIDE RECORDS SUMMARY | 2022-08-17 02:12 | XMS_ITS | Encounter Summary ---
:1940 Author Organization [place] Address [address] [place] [address] Care Team Providers Name Role Phone Unavailable Primary Care Provider Unavailable Encounter Details Date Type Department Care Team Description 06/21/2008 Office Visit-[facility] Allergy and Asthma Provider, [facility] Clinic [address] [place] [address] [phone] Social History Tobacco Use Types Packs/Day Years Used Date Smoking Tobacco: Never Assessed Sex Assigned at Date Recorded Not on file documented as of this encounter Progress Notes Provider, [facility] Nurse - 06/21/2008 1:02 PM CDT Nurse Practitioner Physician Assistant: Negra Nur Status: Signed Encounter: 21 Jun 2008 Type: Allergy Chart Note Pt pharmacy requesting enrique for pt. Dr Shay informed see new scanned orders. Rx faxed to [facility] Electronically signed by:Negra Nur RN Jun 21 2008 5:02PM AIR QUALITY MANAGER Provider, [facility] Nurse - 06/21/2008 1:02 PM CDT Nurse Practitioner Physician Assistant: Negra Nur Status: Signed Encounter: 21 Jun 2008 Type: Allergy Chart Note Pt pharmacy requesting refill on fexofenadine. Med was discontinued at last appt as was all other meds for urticaria. Dr Shay infomred no new orders. Denied refill pt to call if having problems pharmacy notified Electronically signed by:Negra Nur RN Jun 21 2008 1:04PM AIR QUALITY MANAGER documented in this encounter Plan of Treatment Not on filedocumented as of this encounter Visit Diagnoses Not on filedocumented in this encounter
--- OUTSIDE RECORDS SUMMARY | 2022-08-17 02:12 | XMS_ITS | Encounter Summary ---
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 S h Periop Services Procedures REPAIR PTOSIS BILATERAL [address] [place] [phone] Phone: Referral ID Status Reason Start Date Expiration Date Visits Requ ested Visits Authorized [id number] Closed 1 1 Encounter Details Date Type Department Care Team Description 11/02/2012 Surgery [facility] Devyn Ocampo B ILATERAL UPPER LID [place] [facility] PTOSIS AND MECHANICAL Services [place] OPHTHALMIC PLAST PTOSIS REPAIR [address] [place] [phone] [address] [place] [phone] (Wo rk) [...] Comments Blood Pressure 162/86 11/02/2012 11:15 AM CEMENTER MACHINE APPLICATOR Pulse - - Temperature 36.7 ??C (98.1 ??F) 11/02/2012 8:43 AM CEMENTER MACHINE APPLICATOR Respiratory Rate 16 11/02/2012 11:15 AM CEMENTER MACHINE APPLICATOR Oxygen Saturation 97% 11/02/2012 11:15 AM CEMENTER MACHINE APPLICATOR Inhaled Oxygen Concentration - - Weight 89.8 kg (198 lb) 11/02/2012 8:43 AM CEMENTER MACHINE APPLICATOR Height 172.7 cm (5' 8) 11/02/2012 8:43 AM CEMENTER MACHINE APPLICATOR Body Mass Index 30.11 11/02/2012 8:43 AM CEMENTER MACHINE APPLICATOR documented in this encounter Discharge Instructions Discharge [...] not make important decisions for 24 hours. [facility] Eyelid/Orbital Surgery Discharge Instructions Devyn Ocampo M.D. [...] that will not stop with gentle pressure. NTER MACHINE APPLICATOR documented in this encounter Medications at Time [...] Ocampo MD - 10/29/2012 10:49 AM CST NTER MACHINE APPLICATOR documented in this encounter OR Notes OR Anesthesia - Devyn Ocampo MD - 11/05/2012 1:14 PM CST NTER MACHINE APPLICATOR documented in this encounter Miscellaneous Notes Provider Notification - Susi Díaz RN - 11/02/2012 11:19 AM CST Drainage minimal at this time. NTER MACHINE APPLICATOR Provider Notification - Susi Díaz RN - 11/02/2012 11:[address] Ocampo notified of moderate drainage from right inner canthus, eye pad applied with pressure perDr. Ocampo. NTER MACHINE APPLICATOR Provider Notification - Ally Diaz RN - 11/02/2012 10:58 AM CST Moist ice dressing NTER MACHINE APPLICATOR Provider Notification - Ally Diaz RN - 11/02/2012 10:57 AM CST MOderate bloody drainage from right inner canthus, moist ice pack refreshed NTER MACHINE APPLICATOR Op Note - Deyvn Ocampo MD - 11/02/2012 10:50 AM CST [...] left the operating room in stable condition. NTER MACHINE APPLICATOR documented in this encounter Plan of Treatment Not on filedocumented as of this encounter Procedures Procedure Name Priority Date/Time Associated Diagnosis Comme nts REPAIR, PTOSIS, 11/02/2012 9:26 AM CEMENTER MACHINE APPLICATOR PTOSIS AND MECH ANICAL BILATERAL PTOSIS OF BILATERAL UPPER LIDS documented in this encounter Visit Diagnoses Not on filedocumented in this encounter Administered Medications Inactive Administered Medications - up to 3 most recent administrations Medication Order MAR Action Action Date Dose Rate Site erythromycin (ROMYCIN) Given 11/02/2012 9:57 AM 1 g Operative ophthalmic ointment CEMENTER MACHINE APPLICATOR Site/Surgical S ite PRN, Starting on Thu11/02/12 at 0957, Apply within 1 hour of . May be delayed until after first ., Intra-procedure HYDROcodone-acetaminophen 5-325 MG per Given 11/02/2012 11:16 AM CEMENTER MACHINE APPLICATOR 1 tablet tablet 1 tablet 1 tablet, Oral, EVERY 6 HOURS PRN, moderate to severe pain, Starting on Thu11/02/12 at 1115, PACU lidocaine 2%-EPINEPHrine Given 11/02/2012 10:20 AM 5 mLs Operative Site/Surgical 1:200,000 injection CEMENTER MACHINE APPLICATOR Site PRN, Starting on Thu11/02/12 at 0957, Intra-procedure Given 11/02/2012 9:57 AM CEMENTER MACHINE APPLICATOR 6 mLs Opera tive Site/Surgical Site documented in this encounter Active and Recently Administered Medications Times are shown in CEMENTER MACHINE APPLICATOR. PRN Medication Order 10/31/2012 11/01/2012 11/02/2012 erythromycin [...] Intra-procedure documented in this encounter Care Teams Mother Baby Rn Relationship Specialty Start Date End Date Carlos Alberto Corral MD PCP - General Internal Medicine 10/15/12 09/18/[address] [address] documented as of this encounter
--- OUTSIDE RECORDS SUMMARY | 2022-08-17 02:13 | XMS_ITS | Encounter Summary ---
:1940 Author Organization [place] Address [facility] [place] [address] Care Team Providers Name Role Phone Unavailable Primary Care Provider Unavailable Encounter Details Date Type Department Care Team Description 12/05/2004 [facility] Radiation [address] [facility] Oncology [employer] [address] [phone] Center, 1st Floor (Work) [place] [address] Social History Tobacco Use Types Packs/Day Years Used Date Smoking Tobacco: Never Assessed Sex Assigned at Date Recorded Not on file documented as of this encounter Progress Notes Vandana Duarte MD - 10/01/2011 4:36 AM MAINTENANCE HELPER 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 ERON LOVING MD Senior Market Research Analyst Radiation Oncology Date: Dictated by: VANDANA DUARTE MD MT: [email or web address] R/12/23/04/ Document: [id number] CC: MD ERON JACK MD JOHN C HULBERT, MD MALCOLM N BLUMENTHAL, MD LCN: [email or web address] DSC: 12/05/2004 [place], [place] Name: MR#: : ELVIRA: [id number] 12/05/2004 THERAPEUTIC RADIOLOGY PROGRESS/FOLLOW UP NOTE Page 2 of 2 TENANCE HELPER documented in this encounter Plan of Treatment Not on filedocumented as of this encounter Visit Diagnoses Not on filedocumented in this encounter
--- OUTSIDE RECORDS SUMMARY | 2022-08-17 02:13 | XMS_ITS | Encounter Summary ---
:1940 Author Organization [place] Address [address] [place] [address] Care Team Providers Name Role Phone Unavailable Primary Care Provider Unavailable Encounter Details Date Type Department Care Team Description 11/01/2004 Historic Results Allergy and Asthma Ort[facility] Shay Phillips-Wangensteen MD Building XXX RESIGNED XXX 2nd Floor, Clinic 2A [address] [phone] [facility] [address] [place], [place] [address] [phone] Social History Tobacco Use Types Packs/Day Years Used Date Smoking Tobacco: Never Assessed Sex Assigned at Date Recorded Not on file documented as of this encounter Plan of Treatment Not on filedocumented as of this encounter Procedures Procedure Name Priority Date/Time Associated Comments Diagnosis C-REACTIVE PROTEIN Routine 11/01/2004 5:18 PM Res ults for this TATTOO AND BODY ARTIST procedure are i n the results section. HEMOGRAM DIFFERENTIAL Routine 11/01/2004 5:18 PM Results for this AND PLATELET TATTOO AND BODY ARTIST procedure are i n the results section. TRYPTASE Routine 11/01/2004 5:18 PM Results f or this TATTOO AND BODY ARTIST procedure are i n the results section. THYROID PEROXIDASE Routine 11/01/2004 5:18 PM Res ults for this ANTIBODY TATTOO AND BODY ARTIST procedure are i n the results section. PLATELET COUNT Routine 11/01/2004 5:18 PM Results for this TATTOO AND BODY ARTIST procedure are i n the results section. IGE Routine 11/01/2004 5:18 PM Results f or this TATTOO AND BODY ARTIST procedure are i n the results section. HEPATIC FUNCTION PANEL Routine 11/01/2004 5:18 PM Results for this TATTOO AND BODY ARTIST procedure are i n the results section. COMPLEMENT TOTAL Routine 11/01/2004 5:18 PM Resul ts for this TATTOO AND BODY ARTIST procedure are i n the results section. COMPLEMENT C3 Routine 11/01/2004 5:18 PM Results for this TATTOO AND BODY ARTIST procedure are i n the results section. ANTINUCLEAR ANTIBODY Routine 11/01/2004 5:18 PM R esults for this SCREEN BY EIA TATTOO AND BODY ARTIST procedure are in the results section. ANTI THYROGLOBULIN Routine 11/01/2004 5:18 PM Res ults for this ANTIBODY TATTOO AND BODY ARTIST procedure are i n the results section. documented in this encounter Results Anti thyroglobulin antibody (11/01/2004 5:18 PM TATTOO AND BODY ARTIST) Analysis Performed At Patho logist Time Signature Thyroglobulin <20 <40 IU/mL MISYS Antibody Specimen Anatomical Collection Method Collection Time Receive d Time (Source) Location / / Volume Laterality 11/01/2004 5:18 PM 5 5:09 TATTOO AND BODY ARTIST PM TATTOO AND BODY ARTIST Ortiz Shay MD LAB - BLOOD ORDERABLES Performing Organization Address City/State/ZIP Code Phon e Number MISYS Hepatic panel (11/01/2004 5:18 PM TATTOO AND BODY ARTIST) P athologist Signature AST 35 0 - [...] Volume Laterality 11/01/2004 5:18 PM 5 5:09 TATTOO AND BODY ARTIST PM TATTOO AND BODY ARTIST Ortiz Shay MD LAB - BLOOD ORDERABLES Performing Organization Address City/State/ZIP Code Phon e Number MISYS Complement C3 (11/01/2004 5:18 PM TATTOO AND BODY ARTIST) P athologist Signature Complement C3 115 90 - 200 MISYS mg/dL Specimen Anatomical Collection Method Collection Time Receive d Time (Source) Location / / Volume Laterality 11/01/2004 5:18 PM 5 5:09 TATTOO AND BODY ARTIST PM TATTOO AND BODY ARTIST Ortiz Shay MD LAB - BLOOD ORDERABLES Performing Organization Address [facility] Phon e Number MISYS Complement total (11/01/2004 5:18 PM TATTOO AND BODY ARTIST) athologist Signature Complement CH50 120 MISYS Total Comment: Unit: (Note) REFERENCE INTERVAL: Complement Activity, Total EIA Less than 60 Units ........ Low 60-144 Units .............. Normal 145 Units or greater ...... High The above test was performed at: [facility], [address] [place] [address] Specimen Anatomical Collection Method Collection Time Receive d Time (Source) Location / / Volume Laterality 11/01/2004 5:18 PM 5 5:09 TATTOO AND BODY ARTIST PM TATTOO AND BODY ARTIST Ortiz Shay MD LAB - BLOOD ORDERABLES Performing Organization Address [facility] Phon e Number MISYS C-Reactive protein (11/01/2004 5:18 PM TATTOO AND BODY ARTIST) athologist [facility] C-Reactive 0.27 0.00 - 0.80 MISYS Protein mg/dL Specimen Anatomical Collection Method Collection Time Receive d Time (Source) Location / / Volume Laterality 11/01/2004 5:18 PM 5 5:09 TATTOO AND BODY ARTIST PM TATTOO AND BODY ARTIST Ortiz Shay MD LAB - BLOOD ORDERABLES Performing Organization Address [facility] Phon e Number MISYS Antinuclear antibody screen by EIA (11/01/2004 5:18 PM TATTOO AND BODY ARTIST) athologist Signature GABE Screen by 2.5 MISYS EIA Comment: Interpretation: ??Weakly Positive Follow-up testing is not recommended un less clinically indicated. ??GABE samples are retained in the Protein Lab for 30 days. ??Please contact the laboratory to request additional tests. Specimen Anatomical Collection Method Collection Time Receive d Time (Source) Location / / Volume Laterality 11/01/2004 5:18 PM 5 5:09 TATTOO AND BODY ARTIST PM TATTOO AND BODY ARTIST Ortiz Shay MD LAB - BLOOD ORDERABLES Performing Organization Address [facility] Phon e Number MISYS Hemogram differential and platelet (11/01/2004 5:18 PM TATTOO AND BODY ARTIST) Patholo gist Method Time Signature MCV 89 [...] Volume Laterality 11/01/2004 5:18 PM 5 5:09 TATTOO AND BODY ARTIST PM TATTOO AND BODY ARTIST Ortiz Shay MD LAB - BLOOD ORDERABLES Performing Organization Address City/State/ZIP [facility] Phon e Number MISYS (ABNORMAL) IgE (11/01/2004 5:18 PM TATTOO AND BODY ARTIST) P athologist Signature IGE 592 (H) 0 - 114 MISYS KIU/L Specimen Anatomical Collection Method Collection Time Receive d Time (Source) Location / / Volume Laterality 11/01/2004 5:18 PM 5 5:09 TATTOO AND BODY ARTIST PM TATTOO AND BODY ARTIST Ortiz Shay MD LAB - BLOOD ORDERABLES Performing Organization Address City/State/ZIP Code Phon e Number MISYS (ABNORMAL) Thyroid peroxidase antibody (11/01/2004 5:18 PM TATTOO AND BODY ARTIST) P athologist Signature Thyroid 169 (H) <35 IU/mL MISYS Peroxidase Antibody Specimen Anatomical Collection Method Collection Time Receive d Time (Source) Location / / Volume Laterality 11/01/2004 5:18 PM 5 5:09 TATTOO AND BODY ARTIST PM TATTOO AND BODY ARTIST Ortiz Shay MD LAB - BLOOD ORDERABLES Performing Organization Address City/[facility] Code Phon e Number MISYS Tryptase (11/01/2004 5:18 PM TATTOO AND BODY ARTIST) P athologist Signature Tryptase 8.8 MISYS Comment: Reference range: 0.4 to 10.9 Unit: ug/L (Note) TEST INFORMATION: Tryptase This test uses a kit designated by the mike aldana as for research use, not for clinical use. The performance characteristics of this test were valida beltran by [employer] The U.S. Food and Kojo g Administration (FDA) has not approved this test. The re sults are not intended to be used as the sole means fo r clinical diagnosis or patient management decision s. [employer] is authorized under Clinical Laboratory Imp rovement Amendments (CLIA) and by all states to p erform high- complexity testing. The above test was performed at: [facility], [address] [place] [address] Specimen Anatomical Collection Method Collection Time Receive d Time (Source) Location / / Volume Laterality 11/01/2004 5:18 PM 5 5:09 TATTOO AND BODY ARTIST PM TATTOO AND BODY ARTIST Ortiz Shay MD LAB - BLOOD ORDERABLES Performing Organization Address City/State/[facility] Phon e Number MISYS Platelet count (11/01/2004 5:18 PM TATTOO AND BODY ARTIST) athologist Signature Platelet Count 251 150 - 450 MISYS 10e9/L Specimen Anatomical Collection Method Collection Time Receive d Time (Source) Location / / Volume Laterality 11/01/2004 5:18 PM 5 5:53 TATTOO AND BODY ARTIST PM TATTOO AND BODY ARTIST Ortiz Shay MD LAB - BLOOD ORDERABLES Performing Organization Address City/[facility] Code Phon e Number MISYS documented in this encounter Visit Diagnoses Not on filedocumented in this encounter
--- OUTSIDE RECORDS SUMMARY | 2022-08-17 02:13 | XMS_ITS | Encounter Summary ---
:1940 Author Organization [place] Address [address] [place] [address] Care Team Providers Name Role Phone Unavailable Primary Care Provider Unavailable Encounter Details Date Type Department Care Team Description 09/15/2005 Historic Results [facility] Irina Mandel, Radiation Oncology [place] [address] [address] [place] [address] Social History Tobacco Use Types Packs/Day Years Used Date Smoking Tobacco: Never Assessed Sex Assigned at Date Recorded Not on file documented as of this encounter Plan of Treatment Not on filedocumented as of this encounter Procedures Procedure Name Priority Date/Time Associated Diagnosis Comme nts PSA TUMOR MARKER Routine 09/15/2005 4:03 PM Resul ts for this MANAGER LABORATORY procedure are i n the results section. documented in this encounter Results PSA tumor marker (09/15/2005 4:03 PM MANAGER LABORATORY) athologist Signature PSA 0.41 0 - 4 ug/L MIS[facility] Specimen Anatomical Collection Method Collection Time Receive d Time (Source) Location / / Volume Laterality 09/15/2005 4:03 PM 5 3:55 MANAGER LABORATORY PM MANAGER LABORATORY Irina Mandel MD LAB - BLOOD ORDERABLES Performing Organization Address City/State/ZIP Code Phon e Number MISYS documented in this encounter Visit Diagnoses Not on filedocumented in this encounter
--- OUTSIDE RECORDS SUMMARY | 2022-08-17 02:13 | XMS_ITS | Encounter Summary ---
:1940 Author Organization [facility] Address [address] [place] [address] Care Team Providers Name Role Phone Unavailable Primary Care Provider Unavailable Encounter Details Date Type Department Care Team Description 01/08/2021 Immunization Department of Joseph Irby For COVID-19 Medicine, Tony Rojas M.D. Vaccine Immunization Building, in [address] [place] [address] [place] [address] [place], [place] [phone] (Work) [phone] Social History Tobacco Use Types Packs/Day Years Used Date Smoking Tobacco: Never Assessed Sex Assigned at Date Recorded Not on file documented as of this encounter Plan of Treatment Not on filedocumented as of this encounter Visit Diagnoses Diagnosis Encounter For COVID-19 Vaccine Immunizat ion documented in this encounter
--- OUTSIDE RECORDS SUMMARY | 2022-08-17 02:13 | XMS_ITS | Encounter Summary ---
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 Larisa Score 6. PSA 4.8. [...] participate in his care. ERON MANDEL MD Cutting Table Operator Radiation Oncology Dictated by: MD Hansel NOE: 05/01/2005 11:36 MT: [email or web address] Document: [id number] CC: MD SAGAR HENRY MD CHARLES MEYERS, MD LCN: [id number] DSC: 03/12/2005 [facility] A Division of [place], [place] Name: MR#: : ELVIRA: [id number] 03/12/2005 THERAPEUTIC RADIOLOGY PROGRESS/FOLLOW UP NOTE Page 1 of 1 SITE SUPERINTENDENT documented in this encounter Plan of Treatment Not on filedocumented as of this encounter Visit Diagnoses Not on filedocumented in this encounter
--- OUTSIDE RECORDS SUMMARY | 2022-08-17 02:13 | XMS_ITS | Encounter Summary ---
:1940 Author Organization [facility] Address [address] [place] [address] Care Team Providers Name Role Phone Unavailable Primary Care Provider Unavailable Reason for Referral Specialty Diagnoses / Procedures Referred By Contact Refer red To Contact Itzel Armijo M.D. [facility] Region [address] [place] [phone] Referral ID Status Reason Start Date Expiration Date Visits Requ ested Visits Authorized O VISUAL DIRECTOR Encounter Details Date Type Department Care Team Description 11/27/2020 Orders Only [facility] m[facility]h Armijo M.[facility]. [address] [place] [phone] (Wo rk) Social History Tobacco [...]
--- OUTSIDE RECORDS SUMMARY | 2022-08-17 02:13 | XMS_ITS | Encounter Summary ---
:[address] [facility] Address [address] [place] [address] Care Team Providers Name Role Phone Unavailable Primary Care Provider Unavailable Reason for Visit Reason Onset Date Comments Outpatient COVID-19 Testing 09/18/2020 Encounter Details Date Type Department Care Team Description 09/18/2020 External Outreach Department of Naman Calzada Infect ion Upper Internal Medicine in J, D.O. Respiratory (Primary [place], [place] [address] Dx) [address] [place] [phone] Social History Tobacco Use Types Packs/Day Years Used Date Smoking Tobacco: Never Assessed Sex Assigned at Date Recorded Not on file documented as of this encounter Progress Notes Nai Ramsey R.N. - 09/18/2020 3:45 PM CST Encounter created for the drive-through COVID-19 testing. BUSINESS ANALYST documented in this encounter Miscellaneous Notes Addendum Note - Nai Ramsey R.N. - 09/18/2020 3:45 PM PMO BUSINESS ANALYST Addended by: NAI RAMSEY on: 09/19/2020 06:30 PM Modules accepted: Orders BUSINESS ANALYST documented in this encounter Plan of Treatment Not on filedocumented as of this encounter Visit Diagnoses Diagnosis Infection Upper Respiratory - Primary documented in this encounter Additional Health Concerns Infection Onset Date Last Indicated Resolved Time COVID19 Pending 09/18/2020 09/18/2020 09/19/2020 6:30 PM PMO BUSINESS ANALYST documented as of this encounter
--- OUTSIDE RECORDS SUMMARY | 2022-08-17 02:13 | XMS_ITS | Encounter Summary ---
:1940 Author Organization [facility] Address [address] [place] [address] Care Team Providers Name Role Phone Unavailable Primary Care Provider Unavailable Reason for Visit Reason Comments COVID Inquiry Encounter Details Date Type Department Care Team Description 03/06/2021 Clinical Communication Department of Family Elsewhere, Pcp COVID Inquiry Medicine, [facility] [place], in [place], [place] [address] [place] [address] Social History Tobacco Use Types [...] Because of symptoms, transfer patient to: : [place] COVID Nurse Line (End Screening) Standard Appointment Process Have you tested positive for COVID-19 in the last 20 days OR do you have a pending COVID-19 test because you had symptoms?: No, neither apply Testing Recommendation Endpoint Is testing recommended? : Recommended to test Plan: Endpoint recommendation: Testing indicated, advised to be swabbed for COVID-19 Only , sent to [facility] located at [address] [place] [address]. The entrance is on the north side of the building. You must call [phone] during the hours of 7am to 6 [...] sending patient for testing in [facility], route encounter to the correct testing pool. documented in this encounter Plan of Treatment Not on filedocumented as of this encounter Visit Diagnoses Not on filedocumented in this encounter Additional Health Concerns Infection Onset Date Last Indicated Resolved Time COVID19 Pending 03/06/2021 03/06/2021 03/06/2021 12:04 PM CDT documented as of this encounter
--- OUTSIDE RECORDS SUMMARY | 2022-08-17 02:13 | XMS_ITS | Encounter Summary ---
:1940 Author Organization [facility] Address [address] [place] [address] Care Team Providers Name Role Phone Unavailable Primary Care Provider Unavailable Encounter Details Date Type Department Care Team Description 03/30/2006 [facility] [place] [address] [address] [place] [address] Social History Tobacco Use Types Packs/Day [...] / / Volume Laterality 03/30/2006 8:32 AM 6 8:27 CDT AM CDT Irina Mandel MD LAB - BLOOD ORDERABLES Performing Organization Address City/State/ZIP Code Phon e Number MISYS documented in this encounter Visit Diagnoses Not on filedocumented in this encounter
--- OUTSIDE RECORDS SUMMARY | 2022-08-17 02:13 | XMS_ITS | Encounter Summary ---
:1940 Author Organization [facility] Address [address] [place] [address] Care Team Providers Name Role Phone Unavailable Primary Care Provider Unavailable Reason for Visit Appointment Request (Routine) - Closed Specialty Diagnoses / Procedures Referred By Contact Refer red To Contact Family Medicine Referral ID Status Reason Start Date Expiration Date Visits Requ ested Visits Authorized [id number] Closed 08/21/2021 08/21/2022 1 1 Encounter Details Date Type Department Care Team Description 08/30/2021 Immunization Department of Family Medicine, [facility], in [address] [place] [address] Social History Tobacco Use Types Packs/Day Years Used Date Smoking Tobacco: Never Assessed Sex Assigned at Date Recorded Not on file documented as of this encounter Plan of Treatment Not on filedocumented as of this encounter Visit Diagnoses Not on filedocumented in this encounter
--- OUTSIDE RECORDS SUMMARY | 2022-08-17 02:13 | XMS_ITS | Encounter Summary ---
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
--- OUTSIDE RECORDS SUMMARY | 2022-08-17 02:13 | XMS_ITS | Encounter Summary ---
:1940 Author Organization [facility] Address [address] [place] [address] Care Team Providers Name Role Phone Unavailable Primary Care Provider Unavailable Reason for Visit Reason Onset Date Comments Testing For Upper Respiratory Virus Symptoms 03/06/2021 Encounter Details Date Type Department Care Team Description 03/06/2021 External Outreach Department of [facility] Messi Calzadaold Contact With And Medicine, [facility] Isabel Spann (Suspected) Exposure Building, in [address] COVID-19 (Primary [place], [place] Dx) [address] [facility] [address] [place], [place] [phone] (Work) [phone] Social History Tobacco Use Types Packs/Day Years [...]
--- OUTSIDE RECORDS SUMMARY | 2022-08-17 02:13 | XMS_ITS | Encounter Summary ---
:1940 Author Organization [facility] Address [address] [place] [address] Care Team Providers Name Role Phone Unavailable Primary Care Provider Unavailable Encounter Details Date Type Department Care Team Description 05/29/2017 Hospital Encounter HX [facility] Nettie Madison M.D. [address] [place] [address] [place] [address] (Wo rk) Social History Tobacco Use Types Packs/Day Years Used Date Smoking Tobacco: Never Assessed Sex Assigned at Date Recorded Not on file documented as of this encounter Plan of Treatment Not on filedocumented as of this encounter Visit Diagnoses Not on filedocumented in this encounter
--- OUTSIDE RECORDS SUMMARY | 2022-08-17 02:13 | XMS_ITS | Encounter Summary ---
:1940 Author Organization [facility] Address [address] [place] [address] Care Team Providers Name Role Phone Carlos Alberto Corral MD Primary Care Provider Encounter Details Date Type Department Care Team Description 11/22/2002 Historic Results [facility] Heart Unknown, [address] [place] [address] Social History Tobacco Use Types Packs/Day Years Used Date Smoking Tobacco: Never Assessed Sex Assigned at Date Recorded Not on file documented as of this encounter Plan of Treatment Not on filedocumented as of this encounter Procedures Procedure Name Priority Date/Time Associated Diagnosis Comme nts ECHO CARDIAC - HIM SCAN 11/22/2002 12:00 AM ANIMAL DAYCARE PROVIDER - ARCHIVE documented in this encounter Results ECHO CARDIAC - HIM SCAN - ARCHIVE (11/22/2002 12:00 AM ANIMAL DAYCARE PROVIDER) Anatomical Region Laterality Modality Echocardiography Specimen (Source) Anatomical Location Collection Method / Collectio n Time Received Time / Laterality Volume 11/22/2002 Narrative This result has an attachment that is no t available. Provider Scan CV ECHO ORDERABLES documented in this encounter Visit Diagnoses Not on filedocumented in this encounter Care Teams Systems Checkout Mechanic Relationship Specialty Start Date End Date Carlos Alberto Corral MD PCP - General Internal Medicine 10/15/12 09/18/[address] [address] documented as of this encounter
--- OUTSIDE RECORDS SUMMARY | 2022-08-17 02:13 | XMS_ITS | Clinical Summary ---
:1940 Author Organization [facility] Address [address] [place] [address] Care Team Providers Name Role Phone Unavailable Primary Care Provider Unavailable Source Comments Patient records contain information from all sites at [facility]. For routine questions regarding patient records, call [phone] during business hours, M-F 8:00 AM - 5:00 PM Central Time. Record requests for emergency care only can be directed to [phone] at any time.[facility] Immunizations Name Administration Dates Next Due SARS-COV-2 [...] e / Group Dates MEDICARE MEDICARE A [id number] 2007-Pres [address] [place] [address] BLUE CROSS BC[employer] [place] [id number] 2016-Pres [phone] PO BLANCA X Cost Share BLUE SHIELD BLUE COST ent [phone] [facility] [place] [phone]
--- OUTSIDE RECORDS SUMMARY | 2022-08-17 02:13 | XMS_ITS | Encounter Summary ---
:1940 Author Organization [facility] Address [address] [place] [address] Care Team Providers Name Role Phone Unavailable Primary Care Provider Unavailable Encounter Details Date Type Department Care Team Description 03/06/[address] [facility] Irina Mandel, Radiation Oncology [place]LOYD [address] [address] [place] [address] Social History Tobacco Use Types Packs/Day [...]
--- OUTSIDE RECORDS SUMMARY | 2022-08-17 02:13 | XMS_ITS | Encounter Summary ---
:1940 Author Organization [facility] Address [address] [place] [address] Care Team Providers Name Role Phone Unavailable Primary Care Provider Unavailable Reason for Visit Reason Comments Communication Encounter Details Date Type Department Care Team Description 09/15/2017 Clinical Communication Department of Sebastian Lamb, Communication Medicine, [facility], in [facility] [address] [place], [place] [address] [address] [place], [place] [phone] [address] (Work) [phone] Social History Tobacco Use Types Packs/Day Years Used Date Smoking Tobacco: Never Assessed Sex Assigned at Date Recorded Not on file documented as of this encounter Miscellaneous Notes Telephone Encounter - Reanna Kaplan APRN, R.N. - 09/15/2017 4:53 PM CANVAS BASTER Noted, thank you. AS BASTER Telephone Encounter - Barbara Ocampo L.PYuN. - 09/15/2017 4:44 PM CST Daughter contacted and notified that Dr. Sebastian Santana is out of the office until 09/21/17 . Daughter was encouraged to contact patients primary care physician for further direction. AS BASTER Telephone Encounter - Marily Bergman - 09/15/2017 3:46 PM CST Pts daughter Mira calling, pt is being discharged from [facility] needing to schedule pt, post hosp follow up with in 5 days, discharging with a catheter and urinating bright red red blood. Please call back AS BASTER documented in this encounter Plan of Treatment Not on filedocumented as of this encounter Visit Diagnoses Not on filedocumented in this encounter
--- OUTSIDE RECORDS SUMMARY | 2022-08-17 02:14 | XMS_ITS | Clinical Summary ---
:1940 Author Organization [facility] [place] [address] Care Team Providers Name Role Phone Oscar Arevalo MD Primary Care Provider [phone] Allergies Active Allergy Reactions Severity Noted Date Comments Aspirin *Unknown 08/18/2012 From scanned document Diatrizoate Meglumine (Iv Hives 11/02/2012 To lerated PE study Contrast Dye) 08/03/2022 with benadryl pre-medication. Iodine Hives 04/09/2015 Lisinopril *Unknown 08/18/2012 From scanned document. Ask patient if med has side effect (i. e. Cough) as oppos ed to allergic reacti on please. Penicillins *Unknown 08/18/2012 From scanned document [place] Hives 07/07/2017 Sulfa (Sulfonamide *Unknown 08/18/2012 From [...] (Specify). fluticasone (50 mcg per Inhale 1 [place] 0 Active actuation) nasal into both solution [...] Visit Oscar Miner MD [address] [facility] [address] [place] [address] (Wo rk) Health Maintenance Due Date Last [...] <0.034 08/03/2022 [place] ng/mL 3:23 PM CDT [facility] Specimen Anatomical Collection Method / Collection Time Recei charan Time (Source) Location / Volume Laterality Blood BLOOD SPECIMEN / Venipuncture / 08/03/2022 2:51 2021 2:54 Unknown Unknown PM CDT PM CDT Dewey Cueva DO CHEMISTRY Performing Organization Address City/State/ZIP Code Phon e Number [facility] [address] [place] [address] CT CHEST PE STUDY (08/03/2022 1:20 PM [...] note that all CT scans at this [facility] use dose modulation, iterative reconstruction, and/or weight-based dosing when appropriate to reduce radiation dose to as low as reasonably achievable. Dictated by Oscar Michel MD @ 2 2:04:45 PM (Electronically Signed) Narrative 08/03/2022 2:04 PM CDT For Patients: ??As a result of the Cures Act, medical imaging exams and procedure report s are released immediately into your [employer] [employer] medical record. ??You may view this report [...] note that all CT scans at this [facility] use dose modulation, iterative reconstruction, [...] report s are released immediately into your [facility] medical record. ??You may view this report [...] provider. If you have questions, please contact [facility] care provider. Indication: Dizziness Comparison: Single view [...] AM [facility]) [facility] Method Time Signature WHITE BLOOD 8.1 4.5 - 08/03/2022 [place] COUNT 11.0 11:37 AM [facility] thou/cu LABORATORY mm RED BLOOD COUNT 4.42 4.30 - 08/03/2022 [place] 5.90 11:37 AM [facility] mil/cu mm LABORATORY HEMOGLOBIN 13.3 (L) 13.5 - 08/03/2022 [place] 17.5 g/dL 11:37 AM [facility] LABORATORY HEMATOCRIT 40.7 37.0 - 08/03/2022 [place] 53.0 % 11:37 AM [facility] LABORATORY MCV 92 80 - 100 08/03/2022 [place] fL 11:37 AM [facility] LABORATORY MCH 30.1 26.0 - 08/03/2022 [place] 34.0 pg 11:37 AM [facility] LABORATORY MCHC 32.7 32.0 - 08/03/2022 [place] 36.0 g/dL 11:37 AM [facility] LABORATORY RDW 13.7 11.5 - 08/03/2022 [place] 15.5 % 11:37 AM [facility] LABORATORY PLATELET COUNT 185 140 - 440 08/03/2022 [place] thou/cu 11:37 AM [facility] mm LABORATORY MPV 9.9 6.5 - 08/03/2022 [place] 11.0 fL 11:37 AM [facility] LABORATORY % NEUT 78.0 % 08/03/2022 [place] 11:37 AM [facility] LABORATORY % LYMPH 11.8 % 08/03/2022 [place] 11:37 AM [facility] LABORATORY % MONO 7.5 % 08/03/2022 [place] 11:37 AM [facility] LABORATORY % EOS 2.6 % 08/03/2022 [place] 11:37 AM [facility] LABORATORY % BASO 0.1 % 08/03/2022 [place] 11:37 AM [facility] LABORATORY ABSOLUTE 6.3 1.7 - 7.0 08/03/2022 [place] NEUTROPHILS thou/cu 11:37 AM [facility] mm LABORATORY ABSOLUTE 1.0 0.9 - 2.9 08/03/2022 [place] LYMPHOCYTES thou/cu 11:37 AM [facility] mm LABORATORY ABSOLUTE 0.6 <0.9 08/03/2022 [place] MONOCYTES thou/cu 11:37 AM [facility] mm LABORATORY ABSOLUTE 0.2 <0.5 08/03/2022 [place] EOSINOPHILS thou/cu 11:37 AM [facility] mm LABORATORY ABSOLUTE 0.0 <0.3 08/03/2022 [place] BASOPHILS thou/cu 11:37 AM [facility] mm LABORATORY Specimen Anatomical Collection Method Collection Time Receive d Time (Source) Location / / Volume Laterality Blood BLOOD SPECIMEN / Butterfly / 08/03/2022 11:29 022 Unknown Unknown AM CDT 11:33 AM CDT Dewey Cueva DO HEMATOLOGY Performing Organization Address City/State/ZIP Code Phon e Number [facility] [address] [place] [address] LACTATE VENOUS (08/03/2022 11:29 AM CDT) athologist Signature LACTATE,VENOUS 1.0 0.5 - 2.0 08/03/2022 [place] mmol/L 11:50 AM T [facility] LABOR[facility]ORY Specimen Anatomical Collection Method Collection Time Receive d Time (Source) Location / / Volume Laterality Blood BLOOD SPECIMEN / Butterfly / 08/03/2022 11:29 022 Unknown Unknown AM CDT 11:33 AM CDT Dewey Formananabellaearl Anay DO CHEMISTRY Performing Organization Address City/State/ZIP Code Phon e Number [facility] [address] [place] [address] PROCALCITONIN (08/03/2022 11:29 AM CDT) athologist Signature PROCALCITONIN 0.03 <0.50 08/03/2022 [facility] ng/ml 12:35 PM [facility] LABORATORY Specimen Anatomical Collection Method Collection Time Receive d Time (Source) Location / / Volume Laterality Blood BLOOD SPECIMEN / Butterfly / 08/03/2022 11:29 022 Unknown Unknown AM CDT 11:33 AM CDT Narrative [facility] - 12:35 PM CDT Procalcitonin for [...] Cueva DO SEND OUTS Performing Organization Address [facility] LABORATORY [address] [place] [address] BRAIN NATRIURETIC PEPTIDE (08/03/2022 11:29 AM CDT) athologist Signature BRAIN JIMBO 86 <100 pg/mL 08/03/2022 [place] PEPTIDE 12:04 PM T [facility] LABOR[facility]ORY Specimen Anatomical Collection Method Collection Time Receive d Time (Source) Location / / Volume Laterality Blood BLOOD SPECIMEN / Butterfly / 08/03/2022 11:29 022 Unknown Unknown AM CDT 11:33 AM CDT Dewey Cueva DO CHEMISTRY Performing Organization Address [facility] LABORATORY [address] [place] [address] (ABNORMAL) Protime - INR (08/03/2022 11:29 AM CDT) P athologist Signature INR 1.6 (H) <1.3 08/03/2022 [facility] 11:48 AM CDT [facility] PROTIME 18.2 (H) 12.0 - 13.8 08/03/2022 [facility] sec 11:48 AM T [facility] LABORATORY Specimen Anatomical Collection Method Collection Time Receive d Time (Source) Location / / Volume Laterality Blood BLOOD SPECIMEN / Butterfly / 08/03/2022 11:29 022 Unknown Unknown AM CDT 11:[address] [facility] LABORATORY - 11:48 AM CDT ?Therapeutic Range [...] Dicksonmalcom Cueva DO HEMATOLOGY Performing Organization Address City/[facility]/ZIP Code Phon e Number [facility] [address] [place] [address] (ABNORMAL) D-DIMER,QUANTITATIVE (08/03/2022 11:29 AM CDT) [facility] Method Time Signature D-DIMER,QUANT 1.03 See Comment 08/03/2022 [place] ITATIVE / FEU 11:50 AM CDT MEDICAL mcg/mL [place] LABORAT[facility] D-DIMER Abnormal (A) 08/03/2022 [place] INTERP 11:50 AM CDT [facility] LABOR[facility]ORY Specimen Anatomical Collection Method Collection Time Receive d Time (Source) Location / / Volume Laterality Blood BLOOD SPECIMEN / Butterfly / 08/03/2022 11:29 022 Unknown Unknown AM CDT 11:[address] [facility] LABORATORY - 11:50 AM CDT The cut [...] Dicksonmalcom Cueva DO HEMATOLOGY Performing Organization Address [facility] Code Phon e Number [facility] [address] [place] [address] Magnesium (08/03/2022 11:29 AM CDT) P athologist Signature MAGNESIUM 1.9 1.6 - 2.6 08/03/2022 [place] mg/dL 11:56 AM [facility] LABORATORY Specimen Anatomical Collection Method Collection Time Receive d Time (Source) Location / / Volume Laterality Blood BLOOD SPECIMEN / Butterfly / 08/03/2022 11:29 022 Unknown Unknown AM CDT 11:33 AM CDT Dewye Skelton Anay DO CHEMISTRY Performing Organization Address City/State/ZIP Code Phon e Number [facility] [address] [facility] [place] [address] (ABNORMAL) COMP METABOLIC PANEL (08/03/2022 11:29 AM CDT) [facility] Method Time Signature SODIUM 139 135 - 145 08/03/2022 [place] mmol/L 11:57 AM [facility] LABORATORY POTASSIUM 4.2 3.5 - 5.0 08/03/2022 [place] mmol/L 11:57 AM [facility] LABORATORY CHLORIDE 105 98 - 110 08/03/2022 [place] mmol/L 11:57 AM [facility] LABORATORY CO2,TOTAL 25 21 - 31 08/03/2022 [place] mmol/L 11:57 AM [facility] LABORATORY ANION GAP 9 5 - 18 08/03/2022 [facility] 11:57 AM [facility] LABORATORY GLUCOSE 137 (H) 65 - 100 08/03/2022 [place] mg/dL 11:57 AM [facility] LABORATORY CALCIUM 8.8 8.5 - 10.5 08/03/2022 [place] mg/dL 11:57 AM [facility] LABORATORY BUN 16 8 - 25 08/03/2022 [place] mg/dL 11:57 AM [facility] LABORATORY CREATININE 0.96 0.72 - 08/03/2022 [place] 1.25 mg/dL 11:57 AM [facility] LABORATORY BUN/CREAT RATIO 17 10 - 20 08/03/2022 [place] 11:57 AM [facility] LABORATORY ALBUMIN 3.6 3.2 - 4.6 08/03/2022 [place] g/dL 11:57 AM [facility] LABORATORY PROTEIN,TOTAL 6.6 6.0 - 8.0 08/03/2022 [place] g/dL 11:57 AM [facility] LABORATORY GLOBULIN 3.0 2.0 - 3.7 08/03/2022 [place] g/dL 11:57 AM [facility] LABORATORY A/G RATIO 1.2 1.0 - 2.0 08/03/2022 [facility] 11:57 AM [facility] LABORATORY BILIRUBIN,TOTAL 1.4 (H) 0.2 - 1.2 08/03/2022 [place] mg/dL 11:57 AM [facility] LABORATORY ALK PHOSPHATASE 86 50 - 136 08/03/2022 [place] IU/L 11:57 AM [facility] LABORATORY ALT (SGPT) 14 8 - 45 08/03/2022 [place] IU/L 11:57 AM [facility] LABORATORY AST (SGOT) 20 2 - 40 08/03/2022 [facility] IU/L 11:57 AM [facility] LABORATORY eGFR 79 (L) >90 08/03/2022 [facility] mL/min/1.7 11:57 AM [facility] 3m2 LABORATORY Comment: As of 2022, eGFR [...] Organization Address City/State/ZIP Code Phon e Number [facility] [address] [place] [address] EKG 12 LEAD (08/03/2022 11:09 AM CDT) [facility] Method Time Signature Interpretation Atrial-paced rhythm [...] NOW QTc 497 ms BEYOND NOW P Deal 49 degrees BEYOND NOW R Deal -30 degrees BEYOND NOW T Deal 14 degrees BEYOND NOW Specimen Anatomical Collection Method Collection Time Receive d Time (Source) Location / / Volume Laterality 08/03/2022 11:09 08/03/2022 1:33 AM CDT PM CDT Dewey Cueva DO EKG ORD Performing Organization Address City/State/ZIP Code Phon e Number [place] NOW [place], [place] from Last 3 Months Insurance Payer Benefit Plan / Subscriber ID Effective Dates Phone Addre ss Type Group MEDICARE PART A MEDICARE PART A [id number] 2005-Presen ATTN: CLAIMS - HB USE ONLY HB ONLY t [address] [facility] [place] [address] MEDICARE PART B MEDICARE PART B [id number] 2007-Presen ATTN: CLAIMS - HB USE ONLY HB ONLY t [address] [facility] [place] [address] BLUE CROSS BLUE CROSS [id number] 2016-Presen [address] [address] [place] [address] [place], [place] HB ONLY [id number] BLUE CROSS MR BLUE CROSS [id number] 2016-Presen [address] [address] [place] [address] [place], [place] ONLY [id number] Advance Directives Documents on File Type Date Recorded Patient Certified Dialysis Technician Explanati on Healthcare Directive 03/16/2017 2:27 PM [...] Code Status Discussion: Not Discussed Care Teams Urban Planning Professor Relationship Specialty Start Date End Date Oscar Arevalo MD PCP - General Family Practice 05/14/211999 [place] [address]
--- NOTE | 2022-08-17 02:23 | ED.NURSE ---
Lab in to draw blood.
[2022-08-17 02:30] LABS: Lactate* 0.9 mmol/L (0.5-1.9)
[2022-08-17 02:30] LABS: PCR FLU A Negative PCR FLU A (Negative); PCR FLU B Negative PCR FLU B (Negative); PCR RSV Negative PCR RSV (Negative); SARS PCR* Negative SARS-CoV-2 (Negative)
[2022-08-17 02:32] LABS: Hemoglobin* 13.6 gm/dL (13.5-17.5); Immature Granulocytes Abs Auto 0.02 K/uL (0.00-0.30); Lymphocytes Percent Auto 3.1 % (20-44); Mean Corpuscular HGB Conc 32 gm/dL (32-36); Mean Corpuscular Hemoglobin 30 pg (26-34); Mean Corpuscular Volume 92 fL (80-100); Monocytes Percent Auto 5.2 % (0.0-11.0); Neutrophils Percent Auto 90.5 % (42.0-72.0); Platelet Count* 206 K/uL (140-440); RDW Coefficient of Variation % 13.2 % (11.5-15.5); Red Blood Count 4.55 m/uL (4.30-5.90); Slide Review Reflex No; White Blood Count* 12.53 K/uL (4.50-11.00)
--- NOTE | 2022-08-17 02:40 | CRLHL7_ITS ---
For Patients: As a result of the Century Cures Act, medical imaging exams and procedure reports are released immediately into your electronic medical record. You may view this report before your referring provider. If you have questions, please contact your health care provider. INDICATION: Hypoxia TECHNIQUE: Chest radiograph 1 view on 2 films COMPARISON: 07/31/2022, 06/05/2021 FINDINGS: The sensitivity and specificity of the exam are moderately limited by the patient`s body habitus. Mediastinum: Moderate cardiomegaly is noted without interval change. There is a left cardiac pacer present with leads in the right atrium and right ventricle. Lung: There is an asymmetric density in the right lower lung zone measuring 1.4 cm. This is less distinct between the 2 frontal views and may represent a summation artifact of atelectasis and pulmonary vessels. No sign of pleural effusion seen. No pneumothorax is identified. Bone and Soft tissue: Unremarkable for age. IMPRESSION: 1. Moderate cardiomegaly is noted without interval change. Dictated by Bijan Smith MD @ 08/17/2022 4:10:17 AM Dictated by: Bijan Smith MD @ 08/17/2022 04:10:38 (Electronically Signed)
[2022-08-17 02:44] LABS: Albumin* 3.9 g/dL (3.3-5.0); Chloride* 107 mmol/L (96-114); Sodium* 139 mmol/L (135-149)
[2022-08-17 02:45] LABS: Potassium* 3.8 mmol/L (3.6-5.1)
[2022-08-17 02:47] LABS: Amylase* 45 U/L (18-89); Creatinine* 0.9 mg/dL (0.5-1.5); Estimated Glomerular Filt Rate 85 ml/min
[2022-08-17 02:48] LABS: Alanine Aminotransferase* 17 U/L (4-50); Alkaline Phosphatase* 99 U/L (40-150); Aspartate Amino Transferase* 22 U/L (12-35); Bilirubin Total* 1.2 mg/dL (0.1-1.5); Blood Urea Nitrogen* 19 mg/dL (7-30); Calcium* 8.9 mg/dL (8.4-10.6); Carbon Dioxide* 23 mmol/L (20-32); Glucose* 139 mg/dL (60-115); Lipase* 31 U/L (23-300); Magnesium* 1.7 mg/dL (1.5-2.6); Total Protein* 6.8 g/dL (6.0-8.3)
[2022-08-17] MEDS: 0.9 % SODIUM CHLORIDE 1000 ml 1,000 ML IV (02:55)
--- NOTE | 2022-08-17 04:47 | ED.NURSE ---
Report to accepting MS RN.
--- NOTE | 2022-08-17 05:17 | PM.IMCN1 ---
Date of Consult Consult date: 08/17/22 Primary Care Provider: Oscar Arevalo MD Consult Narrative Narrative: Abraham Mancuso is a 82 year old male [facility] Medical History Alcohol intoxication History of alcohol abuse History of prostate cancer Surgical History History of lumbar laminectomy Hx of appendectomy Hx of hemorrhoidectomy Hx of thyroidectomy Social History Narrative: retired [employer] Smoking Status: Former smoker What tobacco products do you use: cigarettes Smoking quit date/years: >15 years ago Do you use any of these nicotine containing products: None Second hand tobacco smoke exposure: No How often do you have a drink containing alcohol: 4 or more times a week Alcohol type: wine Alcohol type details: 4 glasses of white wine daily How many standard drinks containing alcohol do you have on a typical day: 3 or 4 How often do you have six or more drinks on one occasion: Daily or almost daily AUDIT-C Alcohol total score: 9 Non-prescribed substance use: denies use Caffeine: Yes (1 cup a day) service: No Meds Home Medications and Allergies Home Medications Medication Instructions Recorded Confirmed Type atorvastatin 40 mg tablet 40 mg PO HS 06/18/22 08/12/22 History epinephrine 0.3 mg/0.3 mL 0.3 mg IM Q4H PRN 06/18/22 08/12/22 History injection, auto-injector finasteride 5 mg tablet 5 mg PO DAILY 06/18/22 08/12/22 History fluticasone propionate 50 2 spray intranasal DAILY 06/18/22 08/12/22 History mcg/actuation nasal spray,suspension levothyroxine 200 mcg tablet 200 mcg PO DAILY 06/18/22 08/12/22 History omeprazole 20 mg capsule,delayed 20 mg PO DAILY 06/18/22 08/12/22 History release rivaroxaban 20 mg tablet 20 mg PO DAILY 06/18/22 08/12/22 History sotalol 120 mg tablet 120 mg PO BID 06/18/22 08/12/22 History cetirizine 10 mg tablet (24Hour 10 mg PO DAILY 08/01/22 08/12/22 History Allergy) fluoxetine 40 mg capsule 40 mg PO DAILY 08/01/22 08/12/22 History tamsulosin 0.4 mg capsule 0.8 mg PO DAILY 08/01/22 08/12/22 History magnesium 200 mg tablet 200 mg PO QDAY 08/12/22 08/12/22 History Allergies Allergy/AdvReac Type Severity Reaction Status Date / Time aspirin Allergy Mild Unknown Verified 08/12/22 10:46 iodine Allergy Mild Hives Verified 08/12/22 10:46 Penicillins Allergy Mild Unknown Verified 08/12/22 10:46 strawberry Allergy Mild Unknown Verified 08/12/22 10:46 Sulfa (Sulfonamide Allergy Mild Hives Verified 08/12/22 10:46 Antibiotics) Exam Const: Vital Signs, click to edit/add: Vital Signs - 24 hr 08/17/22 01:37 08/17/22 02:07 08/17/22 02:07 Temperature 97.8 F Pulse Rate [Left P ulse Oximeter] 66 Respiratory Rate 18 Blood Pressure [Ri ght Upper Arm] 135/70 Pulse Oximetry 92 94 94 Oxygen Delivery Me thod Room Air Nasal Cannula Oxygen Flow Rate 08/17/22 02:34 Temperature 97.3 F L Pulse Rate [Left P ulse Oximeter] 67 Respiratory Rate 16 Blood Pressure [Ri ght Upper Arm] 143/64 H Pulse Oximetry 94 Oxygen Delivery Me thod Nasal Cannula Oxygen Flow Rate 2 Labs Labs: Short CBC 08/17/22 Range/Units 02:25 WBC 12.53 H (4.50-11.00) K/uL Hgb 13.6 (13.5-17.5) gm/dL Hct 42.0 (37.0-53.0) % Plt Count 206 (140-440) K/uL BMP 08/17/22 02:25 Sodium 139 Potassium 3.8 Chloride 107 Carbon Dioxide 23 BUN 19 Creatinine 0.9 Glucose 139 H Calcium 8.9 Liver Function 08/17/22 Range/Units 02:25 Total Bilirubin 1.2 (0.1-1.5) mg/dL AST 22 (12-35) U/L ALT 17 (4-50) U/L Alkaline Phosphatase 99 (40-150) U/L Albumin 3.9 (3.3-5.0) g/dL Assessment and Plan Assessment and plan (1) Gastroenteritis: Status: Acute Plan Tres eCARE Hospitalist CONSULTATION NOTE: Reason for consult: Gastroenteritis HPI: Patient is a pleasant 82-year-old male who was brought in for nausea, vomiting, and diarrhea which is started today. Diarrhea was quite watery although he did have some little streaks of blood towards the end. He did not have any blood in his emesis. He has not had fever but has had chills. He denies any significant abdominal pain. He denies headache or lightheadedness. He has not had chest pain and has not felt terribly short of breath, but was mildly hypoxic on presentation and so has been placed on oxygen. He denies any dysuria. Patient is vaccinated for COVID. He is a former smoker quitting many years ago. He drinks alcohol around 4 beverages a day, but does not have any withdrawal symptoms if he goes a day or 2 without alcohol. We did discuss CODE STATUS and he wishes to be a DNR. Assessment and Plan: 1. Gastroenteritis Patient is a pleasant 82-year-old male admitted for gastroenteritis. There is a chance that he could have COVID as he is having some mild hypoxia, however he could have just had some possible small aspiration from vomiting which could have caused some of his hypoxia. If patient continues to be hypoxic in the morning, repeat COVID test could be considered. PRNs have been placed for pain and nausea. Patient's chronic outpatient medications will need to be continued as appropriate when fully verified later this morning. Patient appears to be chronically anticoagulated so no pharmacologic DVT prophylaxis has been ordered. Patient is a DNR/DNI. Thank you for including [facility] in the patients care. This service is available for further assistance as requested by your care team by calling [phone].
--- NOTE | 2022-08-17 07:00 | PC.NURSE ---
pt to floor at 0500. Pt states his nausea has subsided since zofran had been administered in the ED. Pt able to ambulate to standing scale and bed, pt states he is weaker than his baseline.
[2022-08-17 09:08] LABS: Lactate* 0.7 mmol/L (0.5-1.9)
[2022-08-17 09:11] LABS: Hematocrit 37.2 % (37.0-53.0); Mean Corpuscular HGB Conc 32 gm/dL (32-36); Mean Corpuscular Hemoglobin 30 pg (26-34); Mean Corpuscular Volume 94 fL (80-100); Platelet Count* 187 K/uL (140-440); Red Blood Count 3.98 m/uL (4.30-5.90); White Blood Count* 7.55 K/uL (4.50-11.00)
[2022-08-17 09:14] LABS: Slide Review Reflex No
[2022-08-17 09:47] LABS: NT Pro B Type NatriureticPept* 533 PG/mL (0-450)
[2022-08-17 10:08] LABS: Troponin I* < 0.01 ng/mL (0.01-0.04)
--- NOTE | 2022-08-17 10:31 | PM.IMHP1 ---
Hospitalist- H&P: HPI History of Present Illness Date Seen: 08/17/22 Chief complaint: Weakness, Nausea Narrative: ADMISSION HISTORY AND PHYSICAL - HOSPITALIST Chief Complaint: Intermittent shortness breath without cough or fever, acute onset diarrhea and nausea HPI: 82-year-old male with recent sick sinus syndrome with pacemaker placement 2 weeks ago presents with acute weakness preceded by some nausea and vomiting/diarrhea as well as intermittent weakness with shortness of breath. Everything essentially began this month. He was in his baseline health prior to the start of July. He had an episode of weakness and shortness of breath was diagnosed in our ED as sick sinus. He was transferred to [place] with an uneventful pacemaker placement. Within a day of discharge from [place] he was in the [place] [id number] ED for several hours with shortness of breath. No specific findings or recommendations were noted. At a PCP follow-up the next week 1 of his blood pressure medicines, amlodipine, was held. He thought that made him feel better for a couple of days and then right back to more shortness of breath which then turned into acute nausea vomiting and diarrhea and EMS presentation to our ER last night. Of note he has not had a cardiology outpatient consult with [facility], his cardiology group, sense all of this began. He has remained on the same dose of sotalol 120 mg b.i.d., Xarelto 20 mg daily, Flomax and Proscar have remained unchanged. Recently his amlodipine was held. He continues on Zyrtec, Lipitor, Prozac, Synthroid, and additional magnesium. He does not necessarily feel palpitations or increase in shallow breathing that is consistent with his AFib in the last month. He has always felt sotalol seems to help those symptoms. He does not complain of any chest pain or pressure. He has never needed a stent, angioplasty or bypass. No history coronary artery disease. In the ED He was noted to have pink tinged stools that were ultimately known to be guaiac-positive stools. However this is in the setting of diarrhea and anticoagulation. No hans blood or melena noted. He was mildly hypoxic requiring up to 2 L to keep his sats greater than 90%. This is a new finding. I've updated the PFSH, medications and allergies in the [facility] tabs. of note: Previous EP cardioversion on 07/13/17 and 07/07/17 [place] info Admission Date: 08/01/2022 Discharge Date: 08/02/2022 HOSPITAL SUMMARY Discharge Diagnosis 1. Sick sinus syndrome status post dual-chamber pacemaker placement 2. Atrial fibrillation on Xarelto 3. Hypothyroidism 4. Hypertension 5. BPH 6. GERD 7. Obesity, BMI 31 TTE: * Left ventricle is severely enlarged with low-normal systolic function, ejection fraction 50 to 55%. * Right ventricle is normal size with normal systolic function. * Trace mitral regurgitation, trace aortic regurgitation, trace tricuspid regurgitation. * No pericardial effusion. * No prior study available for comparison. INVESTIGATIONS: LABS/MICRO/ECG/IMAGING CBC reveals a down trending leukocytosis, from 2:00 a.m. to 9:00 a.m. he went from 12.5-7.5 on his WBC count. Hemoglobin appears to be his baseline, 12.0 Chemistries at admission were unremarkable. His creatinine is 0.9. His glucose was 139. Lactate normal x2. His urine is also unremarkable. However there was trace LE but no white blood cells or nitrate. Respiratory swab to include RSV influenza a and SARS-CoV-2 were all negative. Alcohol level undetectable BNP has actually improved from 697 down to 533 Magnesium is in the normal range, 1.7 Troponin is undetectable this morning. On admission a one-view portable chest x-ray showed moderate cardiomegaly, without interval change from previous No pending microbiology studies EKG from admission shows sinus rhythm, rate of 67. 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 It appears the right bundle branch block is not new. Unclear about the anterior fascicular block. EPIC RECORDS REVIEW: Chest CT from earlier this month 08/03/22 ([place] [id number] ED) IMPRESSION: 1. No PE. 2. Persistent cardiomegaly. 3. Left chest wall pacemaker with associated chest wall subcutaneous emphysema likely from recent placement. 4. Mild emphysema. REVIEW OF SYSTEMS: 12-point ROS completed with patient and negative unless otherwise stated in HPI or below. PHYSICAL EXAM: CODE STATUS: DNR DNI CONSTITUTIONAL: Conversive, good historian. A/O. Knows setting and context. VITAL SIGNS: Orthostatic blood pressures have been completed as of 942 this morning. No evidence of orthostasis noted. There was minimal change in his systolic blood pressure, pulse or oxygen saturations. He has been on room air all morning. HEENT: Normocephalic, atraumatic. PERRL, EOMI, conjunctivae pink, no scleral icterus. Ears and nose externally normal. Pharynx normal. NECK: No JVD. No carotid bruit, no thyromegaly, no adenopathy. CHEST: Clear to auscultation bilaterally HEART: S1 and S2 normal. No harsh murmurs. Edema minimal. Regular rhythm. No evidence of AFib. MUSCULOSKELETAL: No gross joint deformity or swelling. NEURO: Cranial nerves intact. Grossly intact. No asymmetric findings. SKIN: No rashes, petechiae, concerning changes PSYCHIATRIC: Euthymic. ADMIT TO MEDSURG: FLOOR CARE DVT: Home Lovenox dosing GI: PO intake Time spent: 70 minutes examining patient, conferring with family and patient, care staff, developing care plan [facility] Medical History (Updated 08/17/22 @ 11:05 by Natalee Nelson MD) Atrial fibrillation BPH (benign prostatic hyperplasia) Daily consumption of alcohol Essential hypertension GERD (gastroesophageal reflux disease) History of prostate cancer Hyperlipidemia Hypothyroidism Major depressive disorder, recurrent episode, mild Sick sinus syndrome due to SA node dysfunction Urinary retention with incomplete bladder emptying Surgical History (Updated 08/17/22 @ 11:05 by Natalee Nelson MD) History of lumbar laminectomy Hx of appendectomy Hx of hemorrhoidectomy Hx of thyroidectomy Pacemaker Social History (Updated 08/17/22 @ 10:43 by Natalee Nelson MD) Narrative: , is at home with him but requires 24 hour care taking. 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 Three adult children. Olivia, daughter, at [phone] is POA Highest level of school completed/degree received: some college, no degree Smoking Status: Former smoker What tobacco products do you use: cigarettes Smoking quit date/years: >15 years ago Do you use any of these nicotine containing products: None Second hand tobacco smoke exposure: No How often do you have a drink containing alcohol: 4 or more times a week Alcohol type: wine Alcohol type details: 4 glasses of white wine daily How many standard drinks containing alcohol do you have on a typical day: 3 or 4 How often do you have six or more drinks on one occasion: Daily or almost daily AUDIT-C Alcohol total score: 9 Non-prescribed substance use: denies use Caffeine: Yes (1 cup a day) service: No Meds Home Medications and Allergies Home Medications Medication Instructions Recorded Confirmed Type atorvastatin 40 mg tablet 40 mg PO HS 06/18/22 08/17/22 History epinephrine 0.3 mg/0.3 mL 0.3 mg IM Q4H PRN 06/18/22 08/17/22 History injection, auto-injector finasteride 5 mg tablet 5 mg PO DAILY 06/18/22 08/17/22 History fluticasone propionate 50 2 spray intranasal DAILY 06/18/22 08/17/22 History mcg/actuation nasal spray,suspension levothyroxine 200 mcg tablet 200 mcg PO DAILY 06/18/22 08/17/22 History omeprazole 20 mg capsule,delayed 20 mg PO DAILY 06/18/22 08/17/22 History release rivaroxaban 20 mg tablet 20 mg PO DAILY 06/18/22 08/17/22 History sotalol 120 mg tablet 120 mg PO BID 06/18/22 08/17/22 History cetirizine 10 mg tablet (24Hour 10 mg PO DAILY 08/01/22 08/17/22 History Allergy) fluoxetine 40 mg capsule 40 mg PO DAILY 08/01/22 08/17/22 History tamsulosin 0.4 mg capsule 0.8 mg PO DAILY 08/01/22 08/17/22 History magnesium 200 mg tablet 200 mg PO QDAY 08/12/22 08/17/22 History Allergies Allergy/AdvReac Type Severity Reaction Status Date / Time aspirin Allergy Mild Unknown Verified 08/12/22 10:46 iodine Allergy Mild Hives Verified 08/12/22 10:46 Penicillins Allergy Mild Unknown Verified 08/12/22 10:46 strawberry Allergy Mild Unknown Verified 08/12/22 10:46 Sulfa (Sulfonamide Allergy Mild Hives Verified 08/12/22 10:46 Antibiotics) Exam Const: Vital Signs, click to edit/add: Vital Signs - 24 hr 08/17/22 01:37 08/17/22 02:07 08/17/22 02:07 Temperature 97.8 F Pulse Rate Pulse Rate [Left P ulse Oximeter] 66 Pulse Rate [orthos tatic lying Right Pulse Oximeter] Pulse Rate [orthos tatic sitting Righ t Pulse Oximeter] Pulse Rate [orthos tatic standing Rig ht Pulse Oximeter] Respiratory Rate 18 Blood Pressure [Ri ght Arm] Blood Pressure [Ri ght Upper Arm] 135/70 Blood Pressure [or thostatic lying Ri ght Arm] Blood Pressure [or thostatic sitting Right Arm] Blood Pressure [or thostatic standing Right Arm] Pulse Oximetry 92 94 94 Oxygen Delivery Me thod Room Air Nasal Cannula Oxygen Flow Rate 08/17/22 02:34 08/17/22 05:22 08/17/22 05:13 Temperature 97.3 F L Pulse Rate Pulse Rate [Left P ulse Oximeter] 67 Pulse Rate [orthos tatic lying Right Pulse Oximeter] Pulse Rate [orthos tatic sitting Righ t Pulse Oximeter] Pulse Rate [orthos tatic standing Rig ht Pulse Oximeter] Respiratory Rate 16 16 Blood Pressure [Ri ght Arm] Blood Pressure [Ri ght Upper Arm] 143/64 H Blood Pressure [or thostatic lying Ri ght Arm] Blood Pressure [or thostatic sitting Right Arm] Blood Pressure [or thostatic standing Right Arm] Pulse Oximetry 94 94 96 Oxygen Delivery Me thod Nasal Cannula Nasal Cannula Oxygen Flow Rate 2 1 08/17/22 06:24 08/17/22 09:42 08/17/22 07:00 Temperature 98.3 F 97.7 F Pulse Rate Pulse Rate [Left P ulse Oximeter] 67 64 Pulse Rate [orthos tatic lying Right Pulse Oximeter] 61 Pulse Rate [orthos tatic sitting Righ t Pulse Oximeter] 73 Pulse Rate [orthos tatic standing Rig ht Pulse Oximeter] 75 Respiratory Rate 16 18 Blood Pressure [Ri ght Arm] 140/75 H 155/76 H Blood Pressure [Ri ght Upper Arm] Blood Pressure [or thostatic lying Ri ght Arm] 170/76 H Blood Pressure [or thostatic sitting Right Arm] 179/94 H Blood Pressure [or thostatic standing Right Arm] 154/86 H Pulse Oximetry 96 95 Oxygen Delivery Me thod Nasal Cannula Nasal Cannula Oxygen Flow Rate 1 1 08/17/22 10:00 Temperature Pulse Rate 67 Pulse Rate [Left P ulse Oximeter] Pulse Rate [orthos tatic lying Right Pulse Oximeter] Pulse Rate [orthos tatic sitting Righ t Pulse Oximeter] Pulse Rate [orthos tatic standing Rig ht Pulse Oximeter] Respiratory Rate Blood Pressure [Ri ght Arm] Blood Pressure [Ri ght Upper Arm] Blood Pressure [or thostatic lying Ri ght Arm] Blood Pressure [or thostatic sitting Right Arm] Blood Pressure [or thostatic standing Right Arm] Pulse Oximetry Oxygen Delivery Me thod Oxygen Flow Rate Hospitalist - H&P: Result Labs Labs: Short CBC 08/17/22 08/17/22 Range/Units 02:25 09:05 WBC 12.53 H 7.55 (4.50-11.00) K/uL Hgb 13.6 12.0 L (13.5-17.5) gm/dL Hct 42.0 37.2 (37.0-53.0) % Plt Count 206 187 (140-440) K/uL BMP 08/17/22 02:25 Sodium 139 Potassium 3.8 Chloride 107 Carbon Dioxide 23 BUN 19 Creatinine 0.9 Glucose 139 H Calcium 8.9 Cardiac Enzymes 08/17/22 Range/Units 09:05 Troponin I < 0.01 L (0.01-0.04) ng/mL Liver Function 08/17/22 Range/Units 02:25 Total Bilirubin 1.2 (0.1-1.5) mg/dL AST 22 (12-35) U/L ALT 17 (4-50) U/L Alkaline Phosphatase 99 (40-150) U/L Albumin 3.9 (3.3-5.0) g/dL Assessment and Plan Assessment and plan (1) Gastroenteritis: Problem comment: Unclear if this is a new problem or side effect of the ongoing issue which I think is medication based. We will collect his C diff and continue to monitor his stool output and symptoms. Supportive care but no specific treatment yet for this diarrhea and nausea presentation. He is no longer nauseous after his single dose of Zofran in the ED. Status: Acute (2) Hypoxia: Problem comment: Has apparently resolved. No longer on oxygen. I reviewed his chest x-ray from admission as well as his chest CT from the 03 of August. His BNP has down trended. I would like to follow-up his echo which was done prior to his pacemaker placement earlier this month. Status: Acute (3) Sick sinus syndrome due to SA node dysfunction: Problem comment: Continuous telemetry. Troponin is undetectable. BNP down trending. ECG is reassuring. I wonder if he needs a reduction in his sotalol dosing. Consultation with [facility] is appropriate but not urgent. Status: Acute (4) Pacemaker: Problem comment: Surgical site looks well healed. Status: Acute (5) Daily consumption of alcohol: Problem comment: A gave a very strong recommendation for 1 glass of wine daily. Status: Acute (6) Atrial fibrillation: Problem comment: Hx Cardioversion X2 in 2017. 2nd successful with sustained benefit. Apparently rate controlled. And for the most part is in sinus. No evidence of current AFib. Status: Acute (7) Essential hypertension: Problem comment: Recent discontinuation of his amlodipine. Currently only on the sotalol as far as a cardiac med. Of course in addition to his Xarelto. Status: Acute (8) Hypothyroidism: Problem comment: Will check a TSH. Continue his out patient home regimen for levothyroxine replacement. Status: Acute (9) Urinary retention with incomplete bladder emptying: Problem comment: I will culture his urine however I do not feel like this is infectious based. I would like to do postvoid bladder scans to see how much he retains. Status: Acute Plan Expect a 24-48 hour observation, through tomorrow afternoon I would like to follow-up on a C diff collection and test. I decreased his sotalol to 80 mg b.i.d. I would like to have better blood pressure control as he seems to be hypertensive off his amlodipine Update echocardiogram today Bladder scan after urination monitoring Hold his magnesium for now Consult with [facility] in the morning or after echocardiogram result if needed. Consider overnight oximetry
[2022-08-17] MEDS: RIVAROXABAN 10 MG TABLET 20 MG PO (11:29)
[2022-08-17] MEDS: TAMSULOSIN HCL 0.4 MG CAPSULE 0.8 MG PO (11:29)
[2022-08-17] MEDS: FINASTERIDE 5 MG TABLET PO (11:29)
[2022-08-17] MEDS: FLUOXETINE HCL 20 MG CAPSULE 40 MG PO (11:29)
[2022-08-17] MEDS: OMEPRAZOLE 20 MG CAPSULE DR PO (11:29)
--- NOTE | 2022-08-17 11:29 | CRLHL7_ITS ---
For Patients: As a result of the Century Cures Act, medical imaging exams and procedure reports are released immediately into your electronic medical record. You may view this report before your referring provider. If you have questions, please contact your health care provider. INDICATION: F/U DENSITY ON RLL ON CXR HISTORY: Abnormal chest x-ray. 14 mm asymmetric density in the right lower lung zone. Comparison: CT of the chest, 03/12/2022. Chest, 2 portable views, 08/17/2022. Technique: CT of the chest without contrast. Coronal/sagittal reconstruction images. Findings: There is a left subclavian transvenous pacemaker device. Leads are continuous. Cardiomegaly. Bilateral gynecomastia. There is a stable, enlarged lymph node in the right axilla when compared with previous, measuring 12 millimeters in short axis, image 38, series 2. No mediastinal or hilar lymphadenopathy. Main pulmonary artery and thoracic aorta are normal in caliber. The lung windows demonstrate no endobronchial mass. There is no bronchiectasis. There is no architectural distortion. There is no honeycomb formation. There is no traction bronchiectasis. There is mild paraseptal emphysema. There is dependent atelectasis. There is no parenchymal opacity on CT scan to correspond with the findings on recent chest x-ray. There are a few tiny pulmonary nodules, which appear stable and of low suspicion. For example, 5 millimeter nodule in the right lower lobe on image 57, series 3. Evaluation of the upper abdomen demonstrates a left adrenal mass, which measures 17 millimeters, image 107, series 2. This is unchanged from previous. No contralateral adrenal mass. Non cirrhotic liver morphology. No upper abdominal lymphadenopathy or ascites. 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 This could be further assessed with CTA. This measures up to 17 millimeters in dimension. The bone windows demonstrate degenerative disc disease. No suspicious bone lesions are seen. The vertebral body heights are maintained on sagittal reconstruction images. Impression: 1. There is no opacity identified to correspond with the findings on recent chest x-ray. 2. Stable left adrenal nodule, and stable right axillary lymph node. 3. Subcentimeter pulmonary nodules are unchanged, and likely benign. Follow-up is suggested per Fleischner society guidelines. 4. 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 This could be further assessed with CTA on a nonemergent basis. See image 100, series 2 of the current exam. Dictated by Joseph Soares MD @ 08/17/2022 1:15:00 PM Please note that all CT scans at this facility use dose modulation, iterative reconstruction, and/or weight-based dosing when appropriate to reduce radiation dose to as low as reasonably achievable. Dictated by: Joseph Soares MD @ 08/17/2022 13:15:05 (Electronically Signed)
[2022-08-17] MEDS: LEVOTHYROXINE 100 MCG TABLET 200 MCG PO (11:31)
[2022-08-17 12:12] LABS: C.Difficile Negative (Negative); CDIFFEPI 027 PRESUMPTIVE NEGATIVE (Negative)
[2022-08-17] MEDS: SOTALOL HCL 80 MG TABLET PO ×2 (12:17→20:18)
[2022-08-17 17:23] LABS: Appearance Urine Clear (Clear); Bilirubin Urine 1+ (Negative); Blood Urine Trace-intact (Negative); Color Urine Yellow (Yellow); Glucose Urine Negative (Negative); Ketones Urine Negative (Negative); Leukocyte Esterase Urine Negative (Negative); Nitrite Urine Negative (Negative); Protein Urine Negative (Negative); Specific Gravity Urine >= 1.030 (1.000-1.030); Urobilinogen Urine 0.2 (0.2-1.0); pH Urine 5.5 (5.0-8.5)
--- NOTE | 2022-08-17 17:24 | PC.NURSE ---
Shift Summary: Patient pleasant and cooperative. Using call light appropriately. SBA with walker. Has been on RA when awake, when napping requires 1L o2/NC. Bladder scan done x3 after each void, patient incont x1 while sleeping. Tolerating regular diet, denies nausea. Continues to have small loose BM.Vitals stable and remains afebrile.
[2022-08-17 17:40] LABS: Bacteria Urine Few; Mucus Urine Moderate; Squamous Epithelial Cell Urine Moderate (None-Few)
[2022-08-17] MEDS: ATORVASTATIN CALCIUM 40 MG TABLET PO (20:19)
[2022-08-18 03:00] VITALS: BP 160/75; PULSE 63; RESP 18; TEMP 36.7; O2SAT 94
--- NOTE | 2022-08-18 05:20 | PC.NURSE ---
END OF SHIFT NOTE: PT IS PLEASANT AND COOPERATIVE WITH CARES. VSS ON RA; AFEBRILE. PT AMBULATES WITH WALKER AND SBA. PT REPORTS FEELING SOB AT REST AND EVEN MORE WITH ACTIVITY. PT SPO2 LEVELS REMAIN >90% DURING HS WITH NO SIGNS OF INCREASED RESPIRATORY EFFORT. PT DENIES CP AND N/V.
[2022-08-18 07:00] VITALS: BP 175/92; PULSE 61; PULSE 63; RESP 18; TEMP 36.7; O2SAT 94
[2022-08-18 07:01] LABS: HCO3 VBG 27 mmol/L (21-28); PCO2 VBG 43 mmHG (40-50); PO2 VBG 60.3 mmHG (25-47); pH VBG 7.405 (7.32-7.43)
[2022-08-18 07:04] LABS: Hematocrit 35.8 % (37.0-53.0); Hemoglobin* 11.6 gm/dL (13.5-17.5); Mean Corpuscular HGB Conc 32 gm/dL (32-36); Mean Corpuscular Hemoglobin 30 pg (26-34); Mean Corpuscular Volume 94 fL (80-100); Platelet Count* 181 K/uL (140-440); Red Blood Count 3.82 m/uL (4.30-5.90); White Blood Count* 5.36 K/uL (4.50-11.00)
[2022-08-18 07:07] LABS: Slide Review Reflex No
[2022-08-18 07:33] LABS: NT Pro B Type NatriureticPept* 510 PG/mL (0-450)
[2022-08-18 07:49] LABS: Chloride* 109 mmol/L (96-114); Potassium* 3.6 mmol/L (3.6-5.1); Sodium* 138 mmol/L (135-149)
[2022-08-18 07:52] LABS: Creatinine* 0.7 mg/dL (0.5-1.5); Estimated Glomerular Filt Rate 92 ml/min
[2022-08-18 07:53] LABS: Blood Urea Nitrogen* 19 mg/dL (7-30); Calcium* 8.1 mg/dL (8.4-10.6); Carbon Dioxide* 24 mmol/L (20-32); Glucose* 105 mg/dL (60-115); Magnesium* 1.8 mg/dL (1.5-2.6)
[2022-08-18 07:56] LABS: C Reactive Protein* 2.6 mg/dL (0.5-1.0)
[2022-08-18] MEDS: FLUTICASONE PROPIONATE NASAL 2 SPRAY NOSTRIL-B (08:36)
[2022-08-18] MEDS: TAMSULOSIN HCL 0.4 MG CAPSULE 0.8 MG PO (08:36)
[2022-08-18] MEDS: SOTALOL HCL 80 MG TABLET PO ×2 (08:37→20:17)
[2022-08-18] MEDS: FLUOXETINE HCL 20 MG CAPSULE 40 MG PO (08:37)
[2022-08-18] MEDS: OMEPRAZOLE 20 MG CAPSULE DR PO (08:37)
[2022-08-18] MEDS: LEVOTHYROXINE 100 MCG TABLET 200 MCG PO (08:37)
[2022-08-18] MEDS: FINASTERIDE 5 MG TABLET PO (08:37)
[2022-08-18] MEDS: CETIRIZINE HCL 10 MG TABLET PO (08:37)
[2022-08-18] MEDS: RIVAROXABAN 10 MG TABLET 20 MG PO (08:37)
[2022-08-18 11:00] VITALS: BP 152/77; PULSE 64; RESP 18; TEMP 36.9; O2SAT 94
[2022-08-18 15:00] VITALS: BP 149/80; PULSE 60; RESP 18; RESP 20; TEMP 36.9; O2SAT 93
--- NOTE | 2022-08-18 15:37 | PM.IMPN1 ---
Progress Note: A&P Assessment and plan (1) Gastroenteritis: Problem details: Unclear if this is a new problem or side effect of the ongoing issue which I think is medication based. We will collect his C diff and continue to monitor his stool output and symptoms. Supportive care but no specific treatment yet for this diarrhea and nausea presentation. He is no longer nauseous after his single dose of Zofran in the ED. Status: Acute Assessment and Plan: 1. This condition seems to have resolved. (2) Hypoxia: Problem details: Has apparently resolved. No longer on oxygen. I reviewed his chest x-ray from admission as well as his chest CT from the 03 of August. His BNP has down trended. I would like to follow-up his echo which was done prior to his pacemaker placement earlier this month. Status: Acute Assessment and Plan: 1. For the most part this condition seems to have resolved. (3) Sick sinus syndrome due to SA node dysfunction: Problem details: Continuous telemetry. Troponin is undetectable. BNP down trending. ECG is reassuring. I wonder if he needs a reduction in his sotalol dosing. Consultation with [facility] is appropriate but not urgent. Status: Acute (4) Pacemaker: Problem details: Surgical site looks well healed. Status: Acute (5) Daily consumption of alcohol: Problem details: A gave a very strong recommendation for 1 glass of wine daily. Status: Acute Assessment and Plan: 1. Discussed the adverse consequence of alcohol on his body particularly as a depressant. 2. Suggested that he consider achieving and maintaining lifelong sobriety hereafter, verses a maximum of 1 drink per day. (6) Atrial fibrillation: Problem details: Hx Cardioversion X2 in 2017. 2nd successful with sustained benefit. Apparently rate controlled. And for the most part is in sinus. No evidence of current AFib. Status: Acute (7) Essential hypertension: Problem details: Recent discontinuation of his amlodipine. Currently only on the sotalol as far as a cardiac med. Of course in addition to his Xarelto. Status: Acute Assessment and Plan: 1. Blood pressure is slightly elevated off the amlodipine. For now will continue to monitor blood pressure and not restart the amlodipine at a lower dose but consider doing so in the future if need be. (8) Hypothyroidism: Problem details: Will check a TSH. Continue his out patient home regimen for levothyroxine replacement. Status: Acute (9) Urinary retention with incomplete bladder emptying: Problem details: I will culture his urine however I do not feel like this is infectious based. I would like to do postvoid bladder scans to see how much he retains. Status: Acute Plan 1. Listen to the patient. 2. Informed of my impression 3. Recommended that we proceed with the echocardiogram today. 4. Recommended that we proceed with the cardiac Lexiscan stress test. I reviewed with him the indications, potential 1st consequences, and desired outcomes. Answered his questions. He asked us to proceed. Will try to schedule this for tomorrow fat all possible. 5. If the cardiac assessment is for the most part negative, may need to consider adding therapy for his emphysema which we saw on the most recent CT scan of the chest. 6. Patient agreeable to above stated plans and recommendations. Time Spent With Patient Total time spent: 30 minutes Subjective Time Seen by Provider: 10:00 Date Seen: 08/18/22 Interval history: Hospital day number 2. Nausea and vomiting have resolved. Continues to have intermittent exertional dyspnea. Denies paroxysmal nocturnal dyspnea, orthopnea, or even dyspnea at rest. Denies cough. Denies chest heaviness, pressure, tightness, or pain. Does not believe he has ever been tested for coronary artery disease with a stress test before. Exam Narrative: Exam Narrative: Alert, oriented to self, place, time, situation. Friendly, cooperative, articulate. Acknowledges anxiety about his persistent intermittent exertional dyspnea. Mood and affect are congruent. Lungs are clear to auscultation. No wheezing, rhonchi, or rales. Heart tones with regular rhythm, occasional pause. Normal S1-S2. Grade 2/6 systolic murmur left lower sternal border. Abdomen is obese with active bowel sounds, soft, nontender. Extremities without edema. Capillary refill less than 3 seconds. Skin is warm, dry, intact. No focal motor neurologic deficits. Const: Vital Signs, click to edit/add: Vital Signs - 24 hr 08/17/22 16:15 08/17/22 16:15 08/17/22 20:15 Temperature 98.2 F Pulse Rate [Left P ulse Oximeter] 69 Respiratory Rate 18 16 Blood Pressure [Ri ght Arm] 117/61 Pulse Oximetry 92 92 95 Oxygen Delivery Me thod Room Air Room Air Oxygen Flow Rate 08/17/22 23:00 08/17/22 23:00 08/17/22 23:00 Temperature Pulse Rate [Left P ulse Oximeter] 60 Respiratory Rate 18 Blood Pressure [Ri ght Arm] Pulse Oximetry 93 93 Oxygen Delivery Me thod Room Air Oxygen Flow Rate 08/17/22 23:00 08/18/22 03:00 08/18/22 07:00 Temperature 98.6 F 98.0 F Pulse Rate [Left P ulse Oximeter] 60 63 Respiratory Rate 18 18 Blood Pressure [Ri ght Arm] 137/71 160/75 H Pulse Oximetry 93 94 94 Oxygen Delivery Me thod Room Air Room Air Oxygen Flow Rate 08/18/22 07:00 08/18/22 07:00 08/18/22 07:00 Temperature 98.1 F Pulse Rate [Left P ulse Oximeter] 63 61 Respiratory Rate 18 18 18 Blood Pressure [Ri ght Arm] 175/92 H Pulse Oximetry 94 94 Oxygen Delivery Me thod Room Air Room Air Oxygen Flow Rate 0 0 08/18/22 11:00 08/18/22 15:00 08/18/22 15:00 Temperature 98.4 F Pulse Rate [Left P ulse Oximeter] 64 Respiratory Rate 18 18 Blood Pressure [Ri ght Arm] 152/77 H Pulse Oximetry 94 93 93 Oxygen Delivery Me thod Room Air Room Air Oxygen Flow Rate 0 0 08/18/22 15:00 Temperature 98.4 F Pulse Rate [Left P ulse Oximeter] 60 Respiratory Rate 20 Blood Pressure [Ri ght Arm] 149/80 H Pulse Oximetry 93 Oxygen Delivery Me thod Room Air Oxygen Flow Rate 0 Documenting provider has reviewed patient's vital signs: yes Labs Labs: Laboratory Results - last 24 hr 08/17/22 08/18/22 08/18/22 17:18 06:40 06:40 WBC 5.36 RBC 3.82 L Hgb 11.6 L Hct 35.8 L MCV 94 MCH 30 MCHC 32 Plt Count 181 VBG pH VBG pCO2 VBG pO2 VBG HCO3 Sodium 138 Potassium 3.6 Chloride 109 Carbon Dioxide 24 BUN 19 Creatinine 0.7 Estimated GFR 92 Glucose 105 Calcium 8.1 L Magnesium 1.8 C-Reactive Protein 2.6 H NT-Pro-B Natriuret Pep 510 H Urine Color Yellow Urine Appearance Clear Urine pH 5.5 Ur Specific Roosevelt >= 1.030 Urine Protein Negative Urine Glucose (UA) Negative Urine Ketones Negative Urine Blood Trace-intact A Urine Nitrite Negative Urine Bilirubin 1+ A Urine Urobilinogen 0.2 Ur Leukocyte Esterase Negative Urine RBC 2-5 A Urine WBC 2-5 Ur Squamous Epith Cells Moderate A Urine Bacteria Few A Urine Mucus Moderate A 08/18/22 06:40 WBC RBC Hgb Hct MCV MCH MCHC Plt Count VBG pH 7.405 VBG pCO2 43 VBG pO2 60.3 H VBG HCO3 27 Sodium Potassium Chloride Carbon Dioxide BUN Creatinine Estimated GFR Glucose Calcium Magnesium C-Reactive Protein NT-Pro-B Natriuret Pep Urine Color Urine Appearance Urine pH Ur Specific Roosevelt Urine Protein Urine Glucose (UA) Urine Ketones Urine Blood Urine Nitrite Urine Bilirubin Urine Urobilinogen Ur Leukocyte Esterase Urine RBC Urine WBC Ur Squamous Epith Cells Urine Bacteria Urine Mucus
--- NOTE | 2022-08-18 17:47 | PC.NURSE ---
Echo done this afternoon. Pt reports SOB episodes with sats above 90% on RA. Pt also ambulated in [place] with nursing 150+ feet and tolerated this well on RA, sats maintained above 90% but reported SOB. Sleep study to be completed tonight. afebrile. Sotalol dose 80mg BID and BP's have been okay with this - 152/77 with 64 hR and 149/80 with 60 for HR.
[2022-08-18 19:00] VITALS: BP 171/87; PULSE 78; RESP 20; TEMP 36.8; O2SAT 91
[2022-08-18] MEDS: ATORVASTATIN CALCIUM 40 MG TABLET PO (20:17)
[2022-08-18 23:00] VITALS: BP 176/83; PULSE 62; RESP 20; TEMP 36.9; O2SAT 95
[2022-08-19 03:00] VITALS: BP 180/99; PULSE 71; RESP 20; TEMP 36.9; O2SAT 94
--- NOTE | 2022-08-19 06:52 | PC.NURSE ---
END OF SHIFT NOTE:?PT PLEASANT AND COOPERATIVE WITH CARES. PT USING BEDSIDE URINAL. VSS ON RA; AFEBRILE. DENIES CP, SOB, N/V. OXIMETRY SLEEP STUDY PERFORMED NOC; SPO2 >90% MAJORITY OF SHIFT.
[2022-08-19 07:00] VITALS: BP 192/92; PULSE 62; RESP 20; RESP 22; TEMP 36.7; O2SAT 94
[2022-08-19 07:33] LABS: Hematocrit 39.5 % (37.0-53.0); Hemoglobin* 12.8 gm/dL (13.5-17.5); Mean Corpuscular HGB Conc 32 gm/dL (32-36); Mean Corpuscular Hemoglobin 30 pg (26-34); Mean Corpuscular Volume 93 fL (80-100); Platelet Count* 193 K/uL (140-440); Red Blood Count 4.23 m/uL (4.30-5.90); White Blood Count* 6.64 K/uL (4.50-11.00)
[2022-08-19 07:43] LABS: HCO3 VBG 31 mmol/L (21-28); PCO2 VBG 46 mmHG (40-50); PO2 VBG 25.7 mmHG (25-47); pH VBG 7.441 (7.32-7.43)
[2022-08-19 08:07] LABS: Chloride* 104 mmol/L (96-114); Potassium* 3.7 mmol/L (3.6-5.1); Sodium* 137 mmol/L (135-149)
[2022-08-19 08:08] LABS: Slide Review Reflex No
[2022-08-19 08:10] LABS: Blood Urea Nitrogen* 14 mg/dL (7-30); Carbon Dioxide* 29 mmol/L (20-32); Creatinine* 0.7 mg/dL (0.5-1.5); Estimated Glomerular Filt Rate 92 ml/min; Glucose* 100 mg/dL (60-115)
[2022-08-19 08:11] LABS: Calcium* 7.5 mg/dL (8.4-10.6); Magnesium* 1.7 mg/dL (1.5-2.6)
[2022-08-19 08:20] LABS: NT Pro B Type NatriureticPept* 1310 PG/mL (0-450)
[2022-08-19 08:30] LABS: C Reactive Protein* 1.5 mg/dL (0.5-1.0)
--- NOTE | 2022-08-19 09:00 | CRLHL7_ITS ---
For Patients: As a result of the Century Cures Act, medical imaging exams and procedure reports are released immediately into your electronic medical record. You may view this report before your referring provider. If you have questions, please contact your health care provider. MYOCARDIAL PERFUSION SCAN CLINICAL HISTORY: 82-year-old male. Exertional shortness of breath. Hypertension. 207 pounds. TECHNIQUE: (Resting SPECT and Stress Gated SPECT with wall motion and ejection fraction) Stress: Pharmacologic ??? Lexiscan (0.4 mg) (IV) Dose (Stress/Rest): 29.8 mCi/8.31 mCi Tc-99m Sestamibi (IV) Comparison: None FINDINGS: There is good uptake of activity by the left ventricle. No left ventricular enlargement is noted. There is soft tissue attenuation. No other significant fixed or reversible defects are identified. The gated images demonstrate a normal left ventricular ejection fraction of approximately 51 percent. No regional wall motion abnormalities are identified. IMPRESSION: 1. There is no evidence of significant myocardial ischemia or infarction. 2. Normal left ventricular ejection fraction of approximately 51 percent. This study was jointly reviewed by radiology and cardiology. TASH MAHAJAN M.D. [email or web address] Transcribed: 2:06 pm HUMBERTO PAZ M.D [facility] Cardiology DW/Dictated by: Tash Mahajan MD @ 08/19/2022 1:58:00 PM (Electronically Signed)
[2022-08-19] MEDS: REGADENOSON 0.4 MG/5 ML SYRINGE IVP (10:25)
[2022-08-19 11:00] VITALS: BP 147/74; PULSE 70; RESP 20; TEMP 36.6; O2SAT 94
[2022-08-19] MEDS: SODIUM CHLORIDE 0.9 % (FLUSH) 10 ML SYRINGE IVF (11:12)
[2022-08-19] MEDS: SOTALOL HCL 80 MG TABLET PO (11:38)
[2022-08-19] MEDS: FINASTERIDE 5 MG TABLET PO ×2 (11:39)
[2022-08-19] MEDS: TAMSULOSIN HCL 0.4 MG CAPSULE 0.8 MG PO (11:39)
[2022-08-19] MEDS: RIVAROXABAN 10 MG TABLET 20 MG PO (11:39)
[2022-08-19] MEDS: CETIRIZINE HCL 10 MG TABLET PO (11:39)
[2022-08-19] MEDS: FLUTICASONE PROPIONATE NASAL 2 SPRAY NOSTRIL-B (11:40)
[2022-08-19] MEDS: OMEPRAZOLE 20 MG CAPSULE DR PO (11:40)
[2022-08-19] MEDS: FLUOXETINE HCL 20 MG CAPSULE 40 MG PO (11:40)
[2022-08-19] MEDS: LEVOTHYROXINE 100 MCG TABLET 200 MCG PO (11:40)
--- NOTE | 2022-08-19 11:47 | PC.NURSE ---
POST VOID BLADDER SCAN 332CC'S RESIDUAL URINE AT 0850. VOID AT THIS TIME WAS 200CC'S. DR. Dariel CHANCE. NO CHANGES AT THIS TIME.
[2022-08-19 15:00] VITALS: BP 154/90; PULSE 63; RESP 20; TEMP 36.6; O2SAT 93; O2SAT 94
--- NOTE | 2022-08-19 16:13 | PC.NURSE ---
discharge instructions reviewed with patient and dtr. Meds sent to pharm and pt recieved confirmation on phone. f/u appt set with primary. IV removed. Pt and dtr denied any further questions at this time, also in room prior to d/c to discuss plan with Dtr and pt. pt d/c'd at 1605 from m/s unit.
--- NOTE | 2022-08-19 16:34 | PM.ST ---
Stress Test Note Date Date of test: 08/19/22 Providers Referring provider: Emmanuel Paul Primary care provider: Oscar Arevalo Stress test physician: Amador Langford Stress Test Note Stress test ordered: Lexiscan Indication for test: chest pain , exertional dyspnea Stress test medicine: Lexiscan Results discussion: 82-year-old patient presents for the above test after discussion the risks benefits side effects he would proceed test ordered is a Lexiscan, appears to have a paced rhythm, with a ventricular rate of 60, blood pressure 161 on 90. Standard Lexiscan protocol is done over a 5 minute. There were no medications no chest pain no shortness of breath, review of the test and tracings post show normal pacemaker spikes, consistent with an atrial paced rhythm. Impression: Negative electrographic portion of Lexiscan, Follow up suggested: Await nuclear images these will be read by nuclear Medicine, clinical correlation with this will be needed. Patient left this testing facility in excellent condition.
--- NOTE | 2022-08-25 12:21 | P.DS_ITS ---
DS: Providers Provider Time Seen by Provider: 11:00 Date Seen: 08/19/22 Date of admission: 08/17/22 04:52 Primary care physician: Oscar Arevalo MD Admitting Clinician: Lorenza Sousa MD Consults: 08/17/22 10:56 Consult to Occupational Therapy [CONS] Routine Comment: Reason(s) for OT Consult:: Evaluate and Treat Any Restrictions?:: No Restrictions Consult to Physical Therapy [CONS] Routine Comment: Reason(s) for PT Consult:: Evaluate and Treat Any Restrictions?:: No Restrictions Attending Physician on discharge: Emmanuel Paul MD Date of Discharge: 08/19/22 DS: Diagnosis Discharge Diagnosis (1) Exertional dyspnea: Status: Acute (2) Anxiety: Status: Acute (3) Emphysema of lung: Status: Acute Problem details: CT Chest 08/17/2022 demonstrates mild paraseptal emphysema (4) Alcohol abuse: Status: Acute (5) Pulmonary nodules: Status: Acute Problem details: CT chest 08/17/2022, multiple < 1 cm pulmonary nodules (6) Adrenal nodule: Status: Acute Problem details: CT scan 08/17/2022, 1.7 cm left adrenal nodule (7) Urinary retention with incomplete bladder emptying: Status: Acute Problem details: I will culture his urine however I do not feel like this is infectious based. I would like to do postvoid bladder scans to see how much he retains. (8) BPH (benign prostatic hyperplasia): Status: Acute Problem details: With urinary retention. On Finasteride (9) Atrial fibrillation: Status: Acute Problem details: Hx Cardioversion X2 in 2017. 2nd successful with sustained benefit. Apparently rate controlled. And for the most part is in sinus. No evidence of current AFib. (10) Essential hypertension: Status: Acute Problem details: Recent discontinuation of his amlodipine. Currently only on the sotalol as far as a cardiac med. Of course in addition to his Xarelto. (11) Pacemaker: Status: Acute Problem details: Surgical site looks well healed. (12) Sick sinus syndrome due to SA node dysfunction: Status: Acute Problem details: Continuous telemetry. Troponin is undetectable. BNP down trending. ECG is reassuring. I wonder if he needs a reduction in his sotalol dosing. Consultation with [facility] is appropriate but not urgent. (13) History of prostate cancer: Status: Acute Problem details: Radiation and Lupron (14) Hypoxia: Status: Acute Problem details: Has apparently resolved. No longer on oxygen. I reviewed his chest x-ray from admission as well as his chest CT from the 03 of August. His BNP has down trended. I would like to follow-up his echo which was done prior to his pacemaker placement earlier this month. (15) Sensorineural hearing loss (SNHL) of both ears: Status: Acute (16) Hypothyroidism: Status: Acute Problem details: Will check a TSH. Continue his out patient home regimen for levothyroxine replacement. (17) Major depressive disorder, recurrent episode, mild: Status: Acute (18) Hyperlipidemia: Status: Acute (19) GERD (gastroesophageal reflux disease): Status: Acute (20) Gastroenteritis: Status: Acute Problem details: Unclear if this is a new problem or side effect of the ongoing issue which I think is medication based. We will collect his C diff and continue to monitor his stool output and symptoms. Supportive care but no specific treatment yet for this diarrhea and nausea presentation. He is no longer nauseous after his single dose of Zofran in the ED. (21) Daily consumption of alcohol: Status: Acute Problem details: A gave a very strong recommendation for 1 glass of wine daily. DS: Summary Hospital Course Hospital Course: 82-year-old male with recent sick sinus syndrome with pacemaker placement 2 weeks ago presents with acute weakness preceded by some nausea and vomiting/diarrhea as well as intermittent weakness with shortness of breath.? Everything essentially began this month.? He was in his baseline health prior to the start of July.? He had an episode of weakness and shortness of breath was diagnosed in our ED as sick sinus.? He was transferred to [place] with an uneventful pacemaker placement.? Within a day of discharge from [place] he was in the [place] [id number] ED for several hours with shortness of breath.? No specific findings or recommendations were noted.? At a PCP follow-up the next week 1 of his blood pressure medicines, amlodipine, was held.? He thought that made him feel better for a couple of days and then right back to more shortness of breath which then turned into acute nausea vomiting and diarrhea and EMS presentation to our ER last night. Of note he has not had a cardiology outpatient consult with [facility], his cardiology group, sense all of this began.? He has remained on the same dose of sotalol 120 mg b.i.d., Xarelto 20 mg daily, Flomax and Proscar have remained unchanged.? Recently his amlodipine was held.? He continues on Zyrtec, Lipitor, Prozac, Synthroid, and additional magnesium. He does not necessarily feel palpitations or increase in shallow breathing that is consistent with his AFib in the last month.? He has always felt sotalol seems to help those symptoms.? He does not complain of any chest pain or pressure.? He has never needed a stent, angioplasty or bypass.? No history coronary artery disease. In the ED He was noted to have pink tinged stools that were ultimately known to be guaiac- positive stools.? However this is in the setting of diarrhea and anticoagulation.? No hans blood or melena noted. He was mildly hypoxic requiring up to 2 L to keep his sats greater than 90%.? This is a new finding. In hospital we decreased his dose of sotalol from 120 mg twice daily down to 80 mg twice daily. We did not restart his amlodipine which had been held in the outpatient setting. Transthoracic echocardiogram essentially unremarkable with EF of 55-60%. Lexiscan performed demonstrating the followin-year-old patient presents for the above test after discussion the risks benefits side effects he would proceed test ordered is a Lexiscan, appears to have a paced rhythm, with a ventricular rate of 60, blood pressure 161 on 90.? Standard Lexiscan protocol is done over a 5 minute.? There were no medications no chest pain no shortness of breath, review of the test and tracings post show normal pacemaker spikes, consistent with an atrial paced rhythm. Impression: Negative electrographic portion of Lexiscan There are no ischemic changes on imaging with EF of 51% and no regional wall motion abnormalities. Status at Discharge Cognitive/behavioral status at discharge: Admonished the patient to do all he can to significantly curtail his daily alcohol consumption to a maximum of 1 glass of wine daily, preferably total alcohol abstinence. In this regard did recommend that he seek expert help if needed. Additionally I recommended that he can sitter speaking with his primary care physician about the possibility of cognitive behavioral therapy and or other means of assisting him with his anxiety. Overall status at discharge: patient is back to baseline Time Spent with Patient Time attestation: Total time spent providing and/or coordinating discharge services: Time spent: Greater than 30 minutes Discharge Plan Discharge Disposition: Home, Self-Care Date of Admission: 08/17/22 04:52 Attending Provider on Discharge: Emmanuel Paul Primary Care Provider: Oscar Arevalo Condition: Improved Anticipated Discharge Date/Time: 08/19/22 16:00 Discharge Medications: New sotalol [Sorine] 80 mg Tablet 80 mg PO BID Qty: 60 0RF Continued magnesium 200 mg tablet 200 mg PO QDAY fluoxetine 40 mg capsule 40 mg PO DAILY tamsulosin 0.4 mg capsule 0.8 mg PO DAILY cetirizine [24Hour Allergy] 10 mg tablet 10 mg PO DAILY epinephrine 0.3 mg/0.3 mL auto-injector 0.3 mg IM Q4H PRN levothyroxine 200 mcg tablet 200 mcg PO DAILY finasteride 5 mg tablet 5 mg PO DAILY rivaroxaban 20 mg tablet 20 mg PO DAILY Hold Instructions: Resume on 08/03/22. hold until directed to restart by doctors in [place] Rx Instructions: must administer with meal fluticasone propionate 50 mcg/actuation spray,suspension 2 spray intranasal DAILY Rx Instructions: administer into each nostril omeprazole 20 mg capsule,delayed release(DR/EC) 20 mg PO DAILY atorvastatin 40 mg tablet 40 mg PO HS Discontinued sotalol 120 mg tablet 120 mg PO BID Rx Instructions: With meal Discharge Orders: Discharge Order (Routine); Ordered 08/19/22 Ordered By: Emmanuel Paul Patient Education: Sotalol (By mouth), Emphysema (GEN), At-Risk Alcohol Use (GEN), Alcohol Use Disorder (GEN) Activity Level: Activity as Tolerated Discharge Diet: Regular Diet Detail: Maximum recommended consumption of alcohol is 1 glass per day. Recommendation is for total abstinence of alcohol. Follow Up Appointments: Oscar Arevalo MD [Primary Care Provider] - 08/26/22 11:15 am Forms: [facility] Info Instructions
== END 2022-08-19 16:05 | disposition home or self-care (01) ==
LOC: ED 04:02 → MEDSURG 04:53
PROVIDERS: Family Medicine; Internal Medicine; Admitting Provider Family Medicine; Emergency Provider Family Medicine; PCP Family Medicine; Visit Provider Family Medicine
DX: K52.9 Noninfective gastroenteritis and colitis, unspecified (principal); R09.02 Hypoxemia; I49.5 Sick sinus syndrome; R06.09 Other forms of dyspnea; F41.9 Anxiety disorder, unspecified; J43.9 Emphysema, unspecified; F10.10 Alcohol abuse, uncomplicated; R91.8 Other nonspecific abnormal finding of lung field; E27.8 Other specified disorders of adrenal gland; N40.0 Benign prostatic hyperplasia without lower urinary tract symptoms; R33.9 Retention of urine, unspecified; I48.91 Unspecified atrial fibrillation; I10 Essential (primary) hypertension; Z78.9 Other specified health status; Z85.46 Personal history of malignant neoplasm of prostate; Z95.0 Presence of cardiac pacemaker; H90.3 Sensorineural hearing loss, bilateral; E03.9 Hypothyroidism, unspecified; F33.0 Major depressive disorder, recurrent, mild; E78.5 Hyperlipidemia, unspecified; K21.9 Gastro-esophageal reflux disease without esophagitis; R11.0 Nausea; R53.1 Weakness; R11.10 Vomiting, unspecified; Z87.19 Personal history of other diseases of the digestive system; M43.6 Torticollis; M25.60 Stiffness of unspecified joint, not elsewhere classified; R68.83 Chills (without fever); Z87.891 Personal history of nicotine dependence; Z90.89 Acquired absence of other organs; Z20.822 Contact with and (suspected) exposure to COVID-19; D72.829 Elevated white blood cell count, unspecified; I45.19 Other right bundle-branch block; Z66 Do not resuscitate; Z79.01 Long term (current) use of anticoagulants
CPT/HCPCS: 36415; 51798; 71045; 71250; 78452; 80048; 80053; 81003; 81015; 82150; 82803; 83605; 83690; 83735; 83880; 84484; 85025; 85027; 86140; 87086; 87493; 87502; 87631; 87634; 87635; 93005; 93016; 93017; 93306; 94761; 96360; 96361; 97161; 97165; 99285; A9270; A9500; G0378; G0379; J2785; J7030

== ENCOUNTER 2022-12-06 12:52 | Emergency (ER) | payer MEDICARE, BC, SELFPAY ==
[2022-12-06 13:01] VITALS: BP 106/64; PULSE 69; RESP 18; TEMP 36.3; O2SAT 95; BMI 28.9
--- NOTE | 2022-12-06 13:14 | ED_ITS ---
HPI - Male Genitourinary General Chief complaint: Urogenital Problems, Male Stated complaint: blood in urine, catheter Time Seen by Provider: 12/06/22 12:54 History of Present Illness HPI Narrative: This 82-year-old male has a chronic indwelling catheter and comes in because of some bloody urine in the catheter bag. He has a history of prostate cancer and was hospitalized a couple months ago during which time a catheter was placed and will need to stay and long-term. He states that he has been feeling more tired recently but does not have any fevers or other symptoms. He is on Xarelto. He did have his catheter changed 4 days ago and is daughter states that there have was some discoloration of his urine beginning a day or so afterwards. Related Data Home Medications Medication Instructions Recorded Confirmed atorvastatin 40 mg tablet 40 mg PO HS 06/18/22 12/06/22 epinephrine 0.3 mg/0.3 mL 0.3 mg IM Q4H PRN 06/18/22 12/06/22 injection, auto-injector fluticasone propionate 50 2 spray intranasal DAILY 06/18/22 12/06/22 mcg/actuation nasal spray,suspension levothyroxine 200 mcg tablet 200 mcg PO DAILY 06/18/22 12/06/22 omeprazole 20 mg capsule,delayed 20 mg PO DAILY 06/18/22 12/06/22 release rivaroxaban 20 mg tablet 20 mg PO DAILY 06/18/22 12/06/22 tamsulosin 0.4 mg capsule 0.8 mg PO DAILY 08/01/22 12/06/22 amlodipine 10 mg tablet 10 mg PO DAILY 12/06/22 12/06/22 Previous Rx's Medication Instructions Recorded sotalol 80 mg tablet (Sorine) 80 mg PO BID #60 tabs 08/18/22 fluoxetine 40 mg capsule 80 mg PO DAILY #180 caps 08/26/22 fluticasone 250 mcg-salmeterol 50 1 inh inhalation BID #60 ea 08/26/22 mcg/dose blistr powdr for inhalation (Advair Diskus) cetirizine 10 mg tablet (24Hour 20 mg PO QPM #180 tabs 10/09/22 Allergy) finasteride 5 mg tablet 5 mg PO DAILY #90 tabs 10/09/22 cephalexin 500 mg capsule 500 mg PO TID 10 days #30 caps 12/06/22 Allergies Allergy/AdvReac Type Severity Reaction Status Date / Time aspirin Allergy Mild Unknown Verified 10/09/22 11:40 iodine Allergy Mild Hives Verified 10/09/22 11:40 Penicillins Allergy Mild Unknown Verified 10/09/22 11:40 strawberry Allergy Mild Unknown Verified 10/09/22 11:40 Sulfa (Sulfonamide Allergy Mild Hives Verified 10/09/22 11:40 Antibiotics) Contrast Dye Allergy Severe Uncoded 10/09/22 11:40 Review of Systems Status of ROS: Reports: 10 or more systems reviewed and unremarkable except as noted in History and below Narrative: Constitutional: No fevers, no weight gain or loss. Eyes: No discharge. No vision changes. HENT: No congestion, no sore throat, no ear pain. Cardiovascular: No chest pain, no palpitations. Respiratory: No shortness of breath, no wheezes, no cough. Gastrointestinal: No abdominal pain, no vomiting, no diarrhea. Genitourinary: Chronic indwelling catheter with hematuria. Musculoskeletal: Normal range of motion. Skin: No rashes, no pruritis. Neurological: No dizziness, weakness, sensory change, speech change. Endo/Heme/Allergies: No bruising or bleeding. No polydipsia. Pysch: no suicidality, no anxiety, no insomnia. All other systems reviewed and are negative. [facility] Medical History (Updated 12/06/22 @ 14:14 by Dav Zafar MD) Alcohol abuse Anxiety Atrial fibrillation BPH (benign prostatic hyperplasia) COPD (chronic obstructive pulmonary disease) Essential hypertension GERD (gastroesophageal reflux disease) History of prostate cancer Hyperlipidemia Hypothyroidism Major depressive disorder, recurrent episode, mild Sick sinus syndrome due to SA node dysfunction Urinary retention with incomplete bladder emptying Surgical History (Updated 08/26/22 @ 21:47 by Oscar Arevalo MD) History of lumbar laminectomy Hx of appendectomy Hx of hemorrhoidectomy Hx of thyroidectomy Pacemaker Social History (Updated 08/17/22 @ 10:43 by Natalee Nelson MD) Narrative: , is at home with him but requires 24 hour care taking. 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 Three adult children. Olivia, daughter, at [phone] is POA Highest level of school completed/degree received: some college, no degree Smoking Status: Former smoker What tobacco products do you use: cigarettes Smoking quit date/years: >15 years ago Do you use any of these nicotine containing products: None Second hand tobacco smoke exposure: No How often do you have a drink containing alcohol: 4 or more times a week Alcohol type: wine Alcohol type details: 4 glasses of white wine daily How many standard drinks containing alcohol do you have on a typical day: 3 or 4 How often do you have six or more drinks on one occasion: Daily or almost daily AUDIT-C Alcohol total score: 9 Non-prescribed substance use: denies use Caffeine: Yes (1 cup a day) Little interest or pleasure in doing things: several days Feeling down, depressed, or hopeless: nearly every day service: No Exam Narrative: Exam Narrative: Constitutional: Well-developed, well-nourished, no acute distress. HEENT: Normocephalic, atraumatic. Neck: Normal range of motion. Nontender. Supple. Heart: Regular. No murmurs. Normal rate. Intact distal pulses. Lungs: Clear to auscultation. No chest discomfort. No wheezes, rhonchi, or rales. Abdomen: Normal bowel sounds. Nontender. No rebound tenderness. Genitalia: Deferred. Back: No midline tenderness. Normal range of motion. Extremities: Normal range of motion. No injury. Skin: Intact. No rash. Warm. No erythema or pallor. Neurologic: No altered sensation. No weakness. Alert and oriented. Psychiatric: No suicidality. No anxiety or depression. No insomnia. Nursing notes and vitals signs are reviewed. Const: Vital Signs, click to edit/add: Vital Signs - 24 hr 12/06/22 13:01 Temperature 97.3 F L Pulse Rate [Right Pulse Oximeter] 69 Respiratory Rate 18 Blood Pressure [Ri ght Upper Arm] 106/64 Pulse Oximetry 95 Oxygen Delivery Me thod Room Air Course Vital Signs Vital signs: Initial Vital Signs Temperature 97.3 F L 12/06/22 13:01 Temperature Source Temporal Artery Scan 12/06/22 13:01 Pulse Rate 69 12/06/22 13:01 Respiratory Rate 18 12/06/22 13:01 Blood Pressure 106/64 12/06/22 13:01 Blood Pressure Mean 78 12/06/22 13:01 Blood Pressure Position Sitting 12/06/22 13:01 Pulse Oximetry 95 12/06/22 13:01 Oxygen Delivery Method 12/06/22 13:01 Vital Signs Temperature 97.3 F L 12/06/22 13:01 Pulse Rate 69 12/06/22 13:01 Respiratory Rate 18 12/06/22 13:01 Blood Pressure 106/64 12/06/22 13:01 Pulse Oximetry 95 12/06/22 13:01 Oxygen Delivery Method 12/06/22 13:01 Temperature 97.3 F L 12/06/22 13:01 Pulse Rate 69 12/06/22 13:01 Respiratory Rate 18 12/06/22 13:01 Blood Pressure 106/64 12/06/22 13:01 Pulse Oximetry 95 12/06/22 13:01 Oxygen Delivery Method 12/06/22 13:01 MDM - Male Genitourinary MDM Narrative Medical decision making narrative: This patient comes in with hematuria and has a chronic indwelling catheter. Urinalysis does show evidence of infection with some white blood cells and nitrates in the urine. He is on Xarelto which may certainly be contributing to these symptoms of hematuria. Additionally he had his catheter changed about 3 or 4 days ago and this may have triggered some ongoing bleeding. He received a prescription for Keflex. I advised him to follow-up with his primary physician or urologist for ongoing plans or return if worsening. Lab Data Labs: Lab Results 12/06/22 Range/Units 13:14 Urine Color Brown A (Yellow) Urine Appearance Cloudy A (Clear) Urine pH 6.0 (5.0-8.5) Ur Specific [place] >= 1.030 (1.000-1.030) Urine Protein 3+ A (Negative) Urine Glucose (UA) Negative (Negative) Urine Ketones Negative (Negative) Urine Blood 3+ A (Negative) Urine Nitrite Positive A (Negative) Urine Bilirubin 1+ A (Negative) Urine Urobilinogen 1.0 (0.2-1.0) Ur Leukocyte Esterase Trace A (Negative) Urine RBC >100 A (0-2) Urine WBC 5-10 A (0-5) Ur Squamous Epith Cells Few (None-Few) Urine Bacteria Moderate A (None) Urine Mucus Few A (None) Discharge Plan Discharge Clinical Impression: Urinary tract infection Patient Disposition: Home w/ Parent or Adult Condition: Stable Additional Instructions: Take medication as prescribed. Continue current plans otherwise. Follow-up with primary physician or urologist for ongoing plans. Return if worsening. Prescriptions: New cephalexin 500 mg capsule 500 mg PO TID 10 Days Qty: 30 0RF No Action fluticasone propion-salmeterol [Advair Diskus] 250-50 mcg/dose blister with device 1 inh inhalation BID Qty: 60 1RF Rx Instructions: Rinse mouth after use fluoxetine 40 mg capsule 80 mg PO DAILY Qty: 180 3RF cetirizine [24Hour Allergy] 10 mg tablet 20 mg PO QPM Qty: 180 3RF finasteride 5 mg tablet 5 mg PO DAILY Qty: 90 3RF sotalol [Sorine] 80 mg Tablet 80 mg PO BID Qty: 60 0RF amlodipine 10 mg tablet 10 mg PO DAILY tamsulosin 0.4 mg capsule 0.8 mg PO DAILY epinephrine 0.3 mg/0.3 mL auto-injector 0.3 mg IM Q4H PRN levothyroxine 200 mcg tablet 200 mcg PO DAILY rivaroxaban 20 mg tablet 20 mg PO DAILY Hold Instructions: Resume on 08/03/22. hold until directed to restart by doctors in [place] Rx Instructions: must administer with meal fluticasone propionate 50 mcg/actuation spray,suspension 2 spray intranasal DAILY Rx Instructions: administer into each nostril omeprazole 20 mg capsule,delayed release(DR/EC) 20 mg PO DAILY atorvastatin 40 mg tablet 40 mg PO HS Follow Up/Referrals: Oscar Arevalo MD [Primary Care Provider] - Stand Alone Forms: [facility] Info Instructions
[2022-12-06 13:24] LABS: Appearance Urine Cloudy (Clear); Bilirubin Urine 1+ (Negative); Blood Urine 3+ (Negative); Color Urine Brown (Yellow); Glucose Urine Negative (Negative); Ketones Urine Negative (Negative); Leukocyte Esterase Urine Trace (Negative); Nitrite Urine Positive (Negative); Protein Urine 3+ (Negative); Specific Gravity Urine >= 1.030 (1.000-1.030)
[2022-12-06 13:52] LABS: RBC Urine >100 (0-2)
[2022-12-06 13:53] LABS: Bacteria Urine Moderate; Squamous Epithelial Cell Urine Few (None-Few)
[2022-12-06 13:54] LABS: Mucus Urine Few
== END 2022-12-06 14:21 | disposition home or self-care (01) ==
PROVIDERS: Emergency Provider Emergency Medicine Emergency Medical Services; PCP Family Medicine
DX: N39.0 Urinary tract infection, site not specified (principal)
CPT/HCPCS: 81001; 87086; 87186; 99283; 99284

== ENCOUNTER 2023-03-16 14:30 | Outpatient (CLI) | payer MEDICARE, BC, SELFPAY | END 2023-03-16 14:31 | disposition home or self-care (01) | LOC: AMB 03-23 09:33 | PROVIDERS: PCP Family Medicine; Visit Provider Family Medicine | DX: R06.09 Other forms of dyspnea (principal); I49.9 Cardiac arrhythmia, unspecified | CPT/HCPCS: A0425; A0426; A0428 ==

== ENCOUNTER 2023-11-27 13:19 | Outpatient (CLI) | payer MEDICARE, BC, SELFPAY ==
--- OUTSIDE RECORDS SUMMARY | 2023-11-30 11:16 | XMS_ITS | Clinical Summary ---
Author Name Unknown Organization [facility] Address [place], [place] [address] Care Team Providers Care Chief Clerk Name Role Phone Oscar Arevalo MD Primary Care Provider + Allergies Active Allergy Reactions Criticality Noted Date Comments Aspirin *Unknown 08/18/2012 From scanned document Diatrizoate Allergen Hives 11/02/2012 Tolerated PE study 08/03/2022 with benadryl pre-medication. Iodine Hives 04/09/2015 Lisinopril *Unknown 08/18/2012 From scanned document. Ask patient if med has side effect (i.e. Cough) as opposed to allergic reaction please. Penicillins *Unknown 08/18/2012 From scanned document [place] Hives 07/07/2017 Sulfa (Sulfonamide Antibiotics) *Unknown 08/18/2012 From scanned document Sulfasalazine *Unknown - Childhood Rxn 11/01/2012 Medications Medication Sig Dispensed Refills Start Date End Date Status cetirizine (ZYRTEC) 10 mg tabletIndications:season al allergic rhinitis Take 10 mg by mouth once daily if needed for Allergy Symptoms. 0 Active fluticasone (50 mcg per actuation) nasal solution (FLONASE) Inhale 1 Waterfall to both nostrils once daily if needed for Rhinitis. 0 Active hydrocortisone 1 % creamIndications:pruritu s of skin Apply topically to affected area(s) 4 times daily if needed for Itching. 0 7 Active EPINEPHrine (EPIPEN) 0.3 mg/0.3 mL injectionIndications:pari phylaxis Inject 0.3 mg intramuscular one time if needed for Allergic Reaction. 2 Each 2 9 Active omeprazole (PRILOSEC) 20 mg Delayed-Release capsuleIndications:gastr oesophageal reflux disease TAKE 1 CAPSULE BY MOUTH EVERY DAY BEFORE A MEAL 30 Capsule 0 1 Active FLUoxetine (PROZAC) 40 mg capsuleIndications:anxie ty with depression Take 2 Capsules (80 mg) by mouth every morning. 30 Capsule 0 2 Active rivaroxaban (Xarelto) 20 mg tabletIndications:Paroxy smal atrial fibrillation (HC) Take 1 Tablet (20 mg) by mouth once daily with evening meal. 90 Tablet 1 3 Active finasteride (PROSCAR) 5 mg tabletIndications:benign prostatic hyperplasia with lower urinary tract sx Take 5 mg by mouth every morning. 0 Active levothyroxine (SYNTHROID) 175 mcg tabletIndications:hypoth yroidism Take 175 mcg by mouth before breakfast. 0 Active amiodarone (CORDARONE) 200 mg tabletIndications:Atrial fibrillation with rapid ventricular response (HC) Take 2 tablets (400mg) once daily by mouth for 6 weeks. Then reduce to 1 tablet (200mg) once daily 60 Tablet 3 3 Active acetaminophen (TYLENOL) 325 mg tabletIndications:Pain Take 2 Tablets (650 mg) by mouth every 6 hours if needed for Pain (For mild pain.). Max acetaminophen dose: 4000mg in 24 hrs. 0 3 Active atorvastatin (LIPITOR) 40 mg tabletIndications:Pure hypercholesterolemia Take 1 Tablet (40 mg) by mouth at bedtime. 0 3 Active fludrocortisone (FLORINEF) 0.1 mg tabletIndications:Orthos tatic hypotension Take 0.5 Tablets (0.05 mg) by mouth once daily. 0 3 Active fluticasone propion-salmeteroL (Advair Diskus) 250-50 mcg/Dose diskus inhalerIndications:Chron ic obstructive pulmonary disease, unspecified COPD type (HC) Inhale 1 Puff by mouth once daily. 60 Each 0 3 Active polyethylene glycol (MIRALAX; GLYCOLAX) 17 g per packet packetIndications:Consti pation, unspecified constipation type Mix 17 g in liquid then take by mouth once daily if needed for Constipation. 0 3 Active sennosides (SENNA) 8.6 mg tabletIndications:Consti pation, unspecified constipation type Take 1 Tablet (8.6 mg) by mouth once daily if needed for Constipation. second drug ( MIRALAX first) 0 3 Active midodrine (PROAMATINE) 5 mg tabletIndications:Orthos tatic hypotension Take 1 Tablet (5 mg) by mouth three times daily. TID-08,12 noon,16. Give 30 minutes before he gets out of bed 0 3 Active diphenhydrAMINE (BENADRYL) 25 mg tabletIndications:Phlegm in throat Take 1 Tablet (25 mg) by mouth every 4 hours if needed for Itching (Congestion). 30 Tablet 0 3 Active albuterol HFA (PRO-AIR; VENTOLIN; PROVENTIL) 90 mcg/actuation inhalerIndications:Phleg m in throat Inhale 2 Puffs by mouth 4 times daily if needed for Shortness Of Breath or Wheezing. 1 Each 0 3 Active Active Problems Problem Noted Date Diagnosed Date Orthostatic hypotension 03/24/2023 Atrial fibrillation with rapid ventricular respo nse 03/16/2023 Concussion with loss of consciousness of 30 ander milagro or less 01/27/2023 Fall 01/26/2023 Acute cystitis with hematuria 01/26/2023 Chronic anticoagulation 01/26/2023 Closed head injury 01/26/2023 DNR (do not resuscitate) 09/28/2022 Overview: per advanced directive, confirmed with POA daughter, Olivia Sepsis 09/28/2022 Hypothyroid 08/01/2022 Hypertension 08/01/2022 BPH (benign prostatic hyperplasia) 08/01/2022 Vasovagal syncope 04/24/2019 Acute non-recurrent sphenoidal sinusitis 019 Atrial flutter, chronic 06/04/2017 Urinary retention with incomplete bladder emptyi ng 06/01/2017 A-fib 05/30/2017 SOB (shortness of breath) 05/30/2017 Febrile illness 05/30/2017 Anxiety 05/30/2017 Obesity 05/30/2017 Alcohol abuse 05/30/2017 GERD (gastroesophageal reflux disease) 7 Sensorineural hearing loss, bilateral 11/19/2015 Nasal lesion 02/02/2014 Hypoglycemia 09/28/2013 Unspecified ptosis of eyelid 10/12/2012 Prostate CA Overview: lupron, radiation Pure hypercholesterolemia Immunizations Name Administration Dates Next Due Influenza, High-dose Inactivated 07/30/2016,06/27 Influenza, High-dose Quadriv alent Inactivated 07/20/2020 Influenza, IIV3 (Age >=3 years) 08/30/20 17,08/27/2014,07/28/2013,2011 Influenza, Inactivated IIV3 (Age 65+ Years) Preserv Free 07/04/2019,08/26/2018 Pneumococcal Poly,23-Valent (Pneumovax) 08/09/2010 Pneumococcal conj 13-Valent (Prevnar 13) 02/25/2022 Tdap 01/26/2023,10/12/2012 Zoster (Shingrix-RZV, recombinant) 08/23/2019, Zoster (Zostavax-ZVL, live) 10/01/2010 Family History Medical [...] Years Used Date Smoking Tobacco: Former Cigarettes 2 40 1 956 - 10/26/1995 Smokeless Tobacco: Never Tobacco Cessation:Counseling Given: Not Answered Alcohol Use Standard Drinks/Week Comments Not Currently 0 (1 standard drink = 0.6 oz pure alcohol) quit Thursday07/04/2023 (previously 40 glasses of wine per week) PHQ-2 Answer Date Recorded PHQ-2 TOTAL SCORE 0 08/06/2020 Social Connections Answer Date Recorded Frequency of Communication with Friends and Fami ly Not on file 10/01/2023 Financial Resource Strain Answer Date R ecorded Difficulty of Paying Living Expenses 3 09/28/2022 Difficulty of Paying Living Expenses Not on file 09/28/2022 Food Insecurity Answer Date Recorded Worried About Running Out of Food in the Last Ye ar 1 09/28/2022 Transportation Needs Answer Date Record ed Lack of Transportation (Medical) 1 09/28/2022 Housing Stability Answer Date Recorded Unable to Pay for Housing in the Last Year 1 09/28/2022 Sex and Gender Information Value Date Recorded Sex Assigned at Not on file Gender Identity Not on file Sexual Orientation Not on file Obstetrics History Last Filed Vital Signs Vital Sign Reading Time Taken Comments Blood Pressure 148/87 07/15/2023 4:17 PM CDT Pulse 69 07/15/2023 4:17 PM CDT Temperature 36.6 ??C (97.9 ??F) 06/17/2023 1:46 PM CD T Respiratory Rate 20 06/17/2023 1:46 PM CDT Oxygen Saturation 99% 07/15/2023 4:17 PM CDT Inhaled Oxygen Concentration - - Weight 78.7 kg (173 lb 8 oz) 07/15/2023 4:17 PM CDT Height 172.7 cm (5' 8) 06/17/2023 2:00 PM CDT Body Mass Index 26.38 06/17/2023 2:00 PM CDT Plan of Treatment Health Maintenance Due Date Last Done Comments Medicare Wellness for age 65+ 04/09/2016 04/09/2015, 08/24/2012 Depression screening for age 12+ 08/06/2021 08/06/2020, 08/06/2020, 06/02/2019, Additional history exists COVID-19 vaccine series ( season) 2023 08/30/2021, 01/08/2021, 12/12/2020 Influenza for age 65+ 06/26/2023 07/20/2020 , 07/04/2019, 08/26/2018, Additional history exists BMI (ht and wt on same day) for age 18+ 09/26/2023 09/26/2022, 05/14/2021, 04/09/2020, Additional history exists Tetanus booster 01/26/2033 01/26/2023, 10/12/2012 Zoster (shingles) series for age 50+ Completed 08/23/2019, 06/15/2019, 10/01/2010 Pneumococcal series for age 65+ Completed , 08/09/2010 Tdap Completed 01/26/2023, 10/12/2012 Advance Directives Documents on File Type Date Recorded Patient Valet Attendant Expl anation POLST 10/03/2022 Healthcare Directive 03/16/2017 2:27 PM Latest Code Status on File Code Status Date Activated Date Inactivated Comments DNR 03/16/2023 4:25 PM 03/24/2023 2:03 PM Question Answer Comments Code Status Discussion: Reviewed Preferences Code Status History Code Status Date Activated Date Inactivated Comments DNR 01/26/2023 1:46 PM 01/28/2023 3:38 PM Question Answer Comments Code Status Discussion: Reviewed Preferences DNR 09/28/2022 5:30 AM 10/03/2022 5:47 PM Question Answer Comments Code Status Discussion: Reviewed Preferences Full Code 04/24/2019 8:52 PM 04/25/2019 3:24 PM Question Answer Comments Code Status Discussion: Discussed Full Code 07/13/2017 6:54 AM 07/13/2017 7:56 PM Care Teams Chief Clerk Relationship Specialty Start Date End Date Oscar Arevalo MD [address] [facility] [place] [address] PCP - General Family Practice 05/14/21
--- OUTSIDE RECORDS SUMMARY | 2023-11-30 11:17 | XMS_ITS | Encounter Summary ---
Author Name Unknown Organization [facility] Address [address] [place] [address] Care Team Providers Care Servicer Name Role Phone Elsewhere, Pcp Primary Care Provider Unavailabl e Reason for Visit * Reason Onset Date Comments Form Review 04/22/2023 [facility] ( Order [id number] Encounter Details Date Type Department Care Team (Latest Contact Info) Description 04/22/2023 Clinical Communication Department of Community Internal Medicine in [place], [place] [address] [facility] [place] [address] Marj Tang V., EDMUNDO, C.N.P. [address] [facility] [place] [phone] Form Review ([facility] ( Order [id number]) Social History Tobacco Use Types Packs/Day Years Used Date Smoking Tobacco: Never Smokeless Tobacco: Never Nutrition Answer Date Recorded Nutrition: EVOO Fat Source Unknown 12/24 Nutrition: Servings of Fruits/Vegetables per Day Not on file 12/24/2020 Dental Answer Date Recorded Dental: Regular Dentist Unknown 12/25/19 21 Sex and Gender Information Value Date Recorded Sex Assigned at Not on file Gender Identity Not on file Sexual Orientation Not on file documented as of this encounter Miscellaneous Notes * Telephone Encounter - Chanda Carnes - 04/22/2023 4:38 PM CDT Received back completed form. Form faxed back to the listed facility. Scanned into [facility] * Telephone Encounter - Chanda Carnes - 04/22/2023 9:27 AM CDT Form was emailed to Marj Tang for electronic review/signature. PATTERN HAND: [facility] PHONE NUMBER: [phone] INFO REQUESTED: Order [id number] INSTRUCTIONS: Fax information to [phone] documented in this encounter Plan of Treatment Not on file documented as of this encounter Visit Diagnoses Not on filedocumented in this encounter Care Teams Servicer Relationship Specialty Start Date End Date Elsewhere, Pcp PCP - General Internal Medicine 04/08/23 documented as of this encounter
--- OUTSIDE RECORDS SUMMARY | 2023-11-30 11:17 | XMS_ITS | Encounter Summary ---
Author Name Unknown Organization [facility] Address [address] [place] [address] Care Team Providers Care New Accounts Representative Name Role Phone Rick Sotelo C.N.P., M.S.N. Primary Care Pr ovid Reason for Visit * Reason Onset Date Comments Results 03/30/2023 Encounter Details Date Type Department Care Team (Late st Contact Info) Description 03/30/2023 Clinical Communication Division of Community Internal Medicine, [facility] in [place], [place] [address] [place] [phone] Rick Sotelo C.N.P., M.S.N. [address] [place] [phone] Results Social History Tobacco Use Types Packs/Day Years [...] encounter Miscellaneous Notes * Telephone Encounter - Barbara Haddad - 03/30/2023 8:50 AM CDT Images from the original note were not included. documented in this encounter Plan of Treatment Not on file documented as of this encounter Visit Diagnoses Not on filedocumented in this encounter Care Teams New Accounts Representative Relationship Specialty Start Date End Date FarazRick sanchez C.N.P., [place] [address] PCP - General Internal Medicine 03/24/23 04/07/23 documented as of this encounter
--- OUTSIDE RECORDS SUMMARY | 2023-11-30 11:17 | XMS_ITS | Clinical Summary ---
Author Name Unknown Organization [facility] Address [address] [place] [address] Care Team Providers Care Job Service Consultant Name Role Phone Elsewhere, Pcp Primary Care Provider Unavailabl e Source Comments Patient records contain information from all sites at [facility]. For routine questions regarding patient records, call [phone] during business hours, M-F 8:00 AM - 5:00 PM Central Time. Record requests for emergency care only can be directed to [phone] at any time.[facility] Allergies Active Allergy Reactions Criticality Noted Date Comments Aspirin Other (see comments) 01/30/2023 Unknown Iodinated Contrast Media Other (see comments) 0 01/30/2023 Unknown Iodine Other (see comments) 01/30/2023 Unknown Lisinopril Other (see comments) 01/30/2023 unknown Penicillin Other (see comments) 01/30/2023 Unknown [place] Other (see comments) 01/30/2023 Sulfa (Sulfonamide Antibiotics) Other (see comments) 01/30/2023 Unknown Sulfasalazine Other (see comments) 01/30/2023 unknown Medications Medication Sig Dispensed Refills Start Date End Date Status hydrocortisone (CORTAID) 1 % cream Apply 1 application topically 4 (four) times a day as needed for irritation. Apply to itchy areas 30 g 0 01/30/2023 Active EPINEPHrine (EpiPen) 0.3 mg/0.3 mL injection syringe Inject 0.3 mL (0.3 mg total) intramuscularly as needed for anaphylaxis. Inject into the thigh. 1 each 5 02/25/2023 Active tamsulosin (FLOMAX) 0.4 mg 24 hr capsule Take 2 capsules (0.8 mg total) by mouth daily. 90 capsule 3 02/25/2023 Active fluticasone propion-salmeter oL (Advair Diskus) 250-50 mcg/dose diskus inhaler Inhale 1 puff daily. Rinse mouth with water after use to reduce aftertaste and incidence of candidiasis. Do not swallow. 60 each 02/25/2023 Active fluticasone propionate (FLONASE) 50 mcg/actuation nasal spray Administer 1 spray into each nostril daily as needed for rhinitis or allergies. 16 g 02/25/2023 Active cetirizine (ZyrTEC) 10 mg tablet Take 1 tablet (10 mg total) by mouth daily as needed for allergies. 30 tablet 02/25/2023 Active aluminum hydrox-magnesium carb (Gaviscon) 95-358 mg/15 mL suspension Take 15 mL by mouth 2 (two) times a day as needed for indigestion. 335 mL 02/25/2023 4 Active omeprazole (PriLOSEC OTC) 20 mg EC tablet Take 1 tablet (20 mg total) by mouth daily. 90 tablet 02/25/2023 4 Active amLODIPine (NORVASC) 5 mg tablet Take 1 tablet (5 mg total) by mouth daily. 90 tablet 02/25/2023 4 Active finasteride (PROSCAR) 5 mg tablet Take 1 tablet (5 mg total) by mouth daily. 30 tablet 02/25/2023 Active FLUoxetine (PROzac) 40 mg capsule Take 2 capsules (80 mg total) by mouth daily. 90 capsule 02/25/2023 Active acetaminophen (TYLENOL) 325 mg tablet Take 2 tablets (650 mg total) by mouth every 6 (six) hours as needed for pain. 0 03/28/2023 Active amiodarone (PACERONE) 200 mg tablet Take 1 tablet (200 mg total) by mouth daily. 0 05/06/2023 Active amiodarone (PACERONE) 400 mg tablet Take 400 mg by mouth daily. 0 Active food supplemt, lactose-reduced liquid Take by mouth 3 (three) times a day. 0 Active polyethylene glycol (MIRALAX) 17 gram/dose oral powder Take 17 g by mouth daily as needed. Dissolve each 17 g dose in 240 mL (8 ounces) of beverage. 0 Active sennosides (SENOKOT) 8.6 mg tablet Take 8.6 mg by mouth daily as needed. 0 Active atorvastatin (LIPITOR) 40 mg tablet Take 1 tablet (40 mg total) by mouth daily. 90 tablet 3 04/06/2023 4 Active fludrocortisone (FLORINEF) 0.1 mg tablet Take 0.5 tablets (0.05 mg total) by mouth daily. 45 tablet 3 04/06/2023 4 Active levothyroxine (SYNTHROID, LEVOTHROID) 175 mcg tablet Take 1 tablet (175 mcg total) by mouth daily. 90 tablet 3 04/06/2023 4 Active rivaroxaban (XARELTO) 20 mg tablet Take 1 tablet (20 mg total) by mouth daily with dinner. 90 tablet 3 04/06/2023 4 Active midodrine (PROAMATINE) 5 mg tablet Take 1 tablet (5 mg total) by mouth 3 (three) times a day with meals. Hold if systolic blood pressure greater than 140 90 tablet 11 04/06/2023 4 Active Active Problems Problem Noted Date Diagnosed Date Alf Stay Certification Exam 03/29/2023 Overview: Short-term Last Assessment & Plan: Patient stated family is planning to has been transitioned to [facility] in the future. Patient remains appropriate SNF resident. Order summary paperwork signed following our visit, this included review of medications and orders. Current comorbidities, ADL need/level of debility requires skilled care/therapy. Medications and labs all reviewed and appropriate related to comorbidities, unless otherwise indicated. Physician order sheet signed. Continue PT/OT therapy, nutrition intervention, skin protection, and fall prevention. Hypotension Orthostatic 03/28/2023 Overview: ?? Contributed to multiple falls. ?? Currently taking midodrine and fludrocortisone ?? Using abdominal binder and Kermit chavez BP- 108/71-supine 108/71-sitting 103/68 Standing 98/65 99/63 Last Assessment & Plan: Continue midodrine per prescribed protocol. Constipation Slow Transit 02/23/2023 Overview: Slow transit on Senna as needed. Last Assessment & Plan: Regular BM daily in the long-term. History Of Falling 02/15/2023 Overview: Multiple falls at home. Likely multifactorial including advanced age, deconditioning, sensory deficits, orthostatic hypotension, and alcohol use. Last Assessment & Plan: Continue PT/OT. Alcohol Use Unspecified Uncomplicated 02/15/2023 Overview: He has been drinking on a daily basis for an unknown period of time. 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 Last Assessment & Plan: He is encouraged to cut his alcohol intake. Hypertension And Chronic Kidney Disease Stage 2 02/15/2023 Overview: ?? Blood pressure controlled with amlodipine. Lab Results Component Value Date NA 138 03/26/2023 KSERUM 3.4 (L) 03/26/2023 CL 104 03/26/2023 BICARB 21 (L) 03/21/2023 CREATININE 0.97 03/26/2023 EGFRBLKAA >60 04/01/2021 EGFRNONBLKAA 60 (L) 04/01/2021 BUN 14 03/26/2023 ANIONGAP 8 03/26/2023 GLUCOSE 91 03/26/2023 CALCIUM 8.7 03/26/2023 Last Assessment & Plan: He has been normotensive and hemodynamically stable in the long-term. He takes midodrine 5 mg tid if systolic B/P is < 140 . He also wears an abdominal binder and compression stockings. Continue current plan. Retirement (Current) Anticoagulant Treatment 01/25 Overview: On rivaroxaban in the setting of atrial fibrillation. Last Assessment & Plan: Continue care plan Dementia 02/15/2023 Overview: ?? Likely multifactorial including alcohol. ?? Has required assistance from daughter. ?? Sundowning present. Last Assessment & Plan: He is having no behaviors and is on no medication. He will need home nursing aft discharge. Hyperlipidemia Mixed 01/30/2023 Overview: Hyperlipidemia mixed Continue atorvastatin 40 mg Last Assessment & Plan: Lipid management with PCP post discharge. Hypothyroidism 01/30/2023 Overview: On levothyroxine 175 mcg daily . Lab Results Component Value Date TSH 0.15 (L) 03/17/2023 Last Assessment & Plan: Follow up TSH with PCP Atrial Fibrillation Paroxysmal 01/30/2023 Overview: Atrial fibrillation on sotalol and fdc anticoagulation with Xarelto 20 mg. ?? Admission 03/16/2023 with AFib/RVR. ?? Cardioversion to paced rhythm on 03/18. ?? Sotalol discontinued in favor of amiodarone. Last Assessment & Plan: Rate controlled. Follow up with cardiology and PCP for thyroid and lung function monitoring on amiodarone. Primary Malignant Neoplasm Of Prostate 3 Overview: EXT PSA Tumor Marker 0.00 - 4.00 ug/L <0.04 Resulting Agency [facility] Follows with Urology. On tamsulosin. Last Assessment & Plan: Continue current medications and urology follow up. Injury Head Intracranial Gwen sed With Loss Of Consciousness Subsequent 01/30/2023 Overview: ?? 01/26/2023. ?? Stumbled in garage. ?? Hit had and lost consciousness for unknown period of time. ?? Facial injuries. Impression 1. Frontal scalp hematoma without calvarial fracture or intracranial bleed. 2. Cerebral atrophy with nonspecific white matter disease, likely microangiopathy. 3. 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 4. Chronic appearing sinus disease, mildly progressive compared to the 2019 exam. ?? Last Assessment & Plan: His memory has been effected by the CHI and ETOH use. He will need Home nursing for medication management, Home Health Aid for ADL's, and In home PT/OT. OK to start PT/OT when available through [facility]. Home Health Certification/Face to Face Attestation: I certify that this patient is confined to his/her home and needs intermittent detention care, physical therapy and/or speech therapy or continues to need occupational therapy. A plan of care has been established and will be reviewed periodically by a physician or allowed practitioner. Services will be furnished while the patient is under the care of a physician or allowed practitioner. The patient had a [id number] encounter with a physician or an allowed non-physician practitioner and the encounter was related to the primary reason for home health. Date of Face to Face Encounter: 04/06/23 Based on my finding, review of the medical records, and/or collaboration with the other providers, the following services are medically necessary home health services: Physical Therapy, Occupational Therapy, Medication set up and HOME RESTORATION SERVICE SUPERVISOR This patient is confined to his home because: Patient requires cares and assistance of another individual, does not drive, and needs the assistance of others to leave the home. Provider following for home care services: Dr. Arevalo [facility] Marj Tang APRN, C.N.P. 04/06/23 Rhinitis Allergic 01/30/2023 Overview: Has fluticasone nasal spray and cetrizine prn. Last Assessment & Plan: No cocerns. Continue care plan. Depression Anxiety 01/30/2023 Overview: Takes Fluoxetine 80 mg daily Last Assessment & Plan: Continue current medication and dose. Electrolytes to be monitored by PCP post discharge. Gastroesophageal Reflux Disease Without Esophagi tis 01/30/2023 Overview: On omeprazole 20 mg daily with prn Gaviscon Last Assessment & Plan: He will routine monitoring of serum magnesium levels post discharge. Continue current medication regimen. 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 Followed by Dr. Oscar Miner through [place] [facility] [place] [facility]. Last Assessment & Plan: Continue planned device checks. Resolved Problems Problem Noted Date Diagnosed Date Resolved Date Retention Urinary 02/15/2023 02/23/2023 Overview: ?? Has history of prostate cancer. ?? Catheter placed 09/28/2022 retention and removed by Urology 10/03/2022. ?? Catheter placed again due to significant incontinence ?? Sepsis associated with catheter 01/10/2023 Last Assessment & Plan: He has had catheter now for several weeks and would like to have a trial of voiding. Prior to trial of voiding, he developed gross hematuria so will hold off for now due to risk of clotting. [facility] UC pending. Contusion Face Subsequent 02/15/2023 Overview: Fall with loss of consciousness 01/26/2023. Resulting in facial injuries with hematoma and abrasions. Last Assessment & Plan: No bony injuries. Continue to treat symptomatically. Alcohol Mild Use Disorder (A buse) In Remission 01/30/2023 02/23/2023 Overview: Sober x 12 years. Started drinking 5-6 glasses of wine . Last Assessment & Plan: Hospital record states he does not know when or why he started drinking again. Syncope Vasovagal 01/30/2023 02/23/2023 Overview: Orthostatic hypotension Last Assessment & Plan: He is having some low blood pressures. No symptoms. Hypertension Essential Primary 01/30/2023 02/15/2023 Overview: Status: Final result ?? Next appt: 02/02/2023 at 03:00 PM in [facility] (Nohelia De La Cruz M.D.) ?? Component Ref Range & Units 4 d ago (01/26/23) 4 mo ago (10/02/22) 4 mo ago (10/01/22) 4 mo ago (10/01/22) 4 mo ago (10/01/22) 4 mo ago (09/30/22) 4 mo ago (09/29/22) EXT Sodium, S 135 - 145 mmol/L 139 134??Low?? EXT Potassium, S 3.5 - 5.0 mmol/L 4.1 3.6 3.3??Low?? 3.1??Low?? 3.6 3.6 EXT Chloride, S 98 - 110 mmol/L 105 104 EXT Total Carbon Dioxide, P 21 - 31 mmol/L 23 21 EXT Anion Gap 5 - 18 11 9 EXT Glucose 70 - 99 mg/dL 133??High?? 93 R EXT Calcium, Total, S 8.5 - 10.5 mg/dL 8.9 7.5??Low?? EXT BUN (Blood Urea Nitrogen), S/P 8 - 25 mg/dL 13 12 EXT Creatinine, S 0.72 - 1.25 mg/dL 0.86 0.74 0.78 EXT BUN/CREAT RATIO 10 - 20 15 15 EXT eGFR >90 mL/min/1.73m2 86??Low?? 90??Low?? CM 89??Low?? CM Comment: As of 2022, eGFR is calculated by the CKD-EPI creatinine equation without race adjustment. ??eGFR can be influenced by muscle mass, exercise, and diet. ??The reported eGFR is an estimation only and is only applicable if the renal function is stable. Resulting Agency [facility] Last Assessment & Plan: On amlodipine 10 mg daily. No leg edema. Decline Cognitive 01/30/2023 03/29/2023 Overview: Dementia per Hospital record Last Assessment & Plan: Therapy will evaluate him in the long-term setting. Pacemaker Cardiac Status Post 01/30/2023 01/30/2023 Sick Sinus Syndrome 01/30/2023 02/24/20 23 Overview: Pacemaker Last Assessment & Plan: Bedside monitor Immunizations Name Administration Dates Next Due SARS-COV-2 (COVID-19) - PFIZ ER (Discontinued)(12 years or older) 08/30/2021,01/08/2021,12/12/2020 Social History Tobacco Use Types Packs/Day Years Used Date Smoking Tobacco: Never Smokeless Tobacco: Never Tobacco Cessation:Counseling Given: Not Answered Nutrition Answer Date Recorded Nutrition: EVOO Fat Source Unknown 12/24 Nutrition: Servings of Fruits/Vegetables per Day Not on file 12/24/2020 Dental Answer Date Recorded Dental: Regular Dentist Unknown 12/25/19 21 Sex and Gender Information Value Date Recorded Sex Assigned at Not on file Gender Identity Not on file Sexual Orientation Not on file Last Filed Vital Signs Vital Sign Reading Time Taken Comments Blood Pressure 138/84 04/06/2023 4:15 PM CDT Pulse 84 04/06/2023 4:15 PM CDT Temperature 36.1 ??C (97 ??F) 04/06/2023 4:15 PM CDT Respiratory Rate 18 04/06/2023 4:15 PM CDT Oxygen Saturation 96% 04/06/2023 4:15 PM CDT Inhaled Oxygen Concentration - - Weight 82.6 kg (182 lb 3.2 oz) 04/06/2023 4:15 P M CDT Height - - Body Mass Index - - Plan of Treatment Health Maintenance Due Date Last Done Comments Hepatitis A Vaccines (1 of 2 - Risk 2-dose series) 1959 Hepatitis B Vaccines (1 of 3 - Risk 3-dose series) 2000 COVID-19 Vaccine ( - 2022-2 4 season) 2023 08/30/2021, 01/08/2021, 12/12/2020 Fall Risk Screen (Annual) 10/26/2023 Thyroid Stimulating Hormone (TSH) test for thyroid function 03/17/2024 03/17/2023, 09/28/2022, 09/01/2019, Additional history exists Office Visit for Blood Press ure Check / Re-check 04/06/2024 04/06/2023 DTaP,Tdap,and Td Vaccines (4 - Td or Tdap) 01/26/2033 01/26/2023, 03/03/2022, 10/12/2012 Zoster Vaccines Completed 08/23/2019, 05/27, 10/01/2010 Pneumococcal vaccine (65+ years) Completed 02/26/20, 08/09/2010 Influenza Vaccine Completed 10/27/2023, , 07/30/2021, Additional history exists Care Teams Job Service Consultant Relationship Specialty Start Date End Date Elsewhere, Pcp PCP - General Internal Medicine 04/08/23
--- OUTSIDE RECORDS SUMMARY | 2023-11-30 11:17 | XMS_ITS | Encounter Summary ---
Author Name Unknown Organization [facility] Address [address] [place] [address] Care Team Providers Care Rod Buster Name Role Phone Elsewhere, Pcp Primary Care Provider Unavailabl e Reason for Visit * Reason Onset Date Comments Form Review 05/26/2023 [facility] #[id number] Encounter Details Date Type Department Care Team (Latest Contact Info) Description 05/26/2023 Clinical Communication [facility] in [place], [place] [address] [place] [phone] Marj Tang V., EDMUNDO, C.N.P. [address] [place] [phone] Form Review ([facility] #[id number]/) Social History Tobacco Use Types Packs/Day Years [...] encounter Miscellaneous Notes * Telephone Encounter - Adriana Melendrez - 05/27/2023 7:08 AM CDT Form completed and faxed to listed facility. Copy sent to scanning. * Telephone Encounter - Adriana Melendrez - 05/26/2023 9:08 AM CDT Form was emailed to Marj Tang APRN for electronic review/signature. RISK CONTROL PRODUCT LIABILITY DIRECTOR: [facility] PHONE NUMBER: [phone] INFO REQUESTED: #[id number] INSTRUCTIONS: Fax information to [phone] documented in this encounter Plan of Treatment Not on file documented as of this encounter Visit Diagnoses Not on filedocumented in this encounter Care Teams Rod Buster Relationship Specialty Start Date End Date Elsewhere, Pcp PCP - General Internal Medicine 04/08/23 documented as of this encounter
--- OUTSIDE RECORDS SUMMARY | 2023-11-30 11:17 | XMS_ITS | Encounter Summary ---
Author Name Unknown Organization [facility] Address [address] [place] [address] Care Team Providers Care Lighting Designer Name Role Phone Elsewhere, Pcp Primary Care Provider Unavailabl e Reason for Visit * Reason Onset Date Comments Forms 05/07/2023 [facility] - order [id number] Encounter Details Date Type Department Care Team (Latest Contact Info) Description 05/07/2023 Clinical Communication [facility] in [place], [place] [address] [place] [phone] Marj Tang V., EDMUNDO, C.N.P. [address] [place] [phone] Forms ([facility] - order [id number]) Social History Tobacco Use Types Packs/Day Years [...] encounter Miscellaneous Notes * Telephone Encounter - Christy Hung - 05/07/2023 4:27 PM CDT Received back completed form. Form faxed back to the listed facility. Scanned into [facility] * Telephone Encounter - Christy Hung - 05/07/2023 10:11 AM CDT Form was emailed to Chandra Tang APRN CNP for electronic review/signature. COTTON CHOPPER: [facility] PHONE NUMBER: [phone] INFO REQUESTED: order [id number] INSTRUCTIONS: Fax information to [phone] documented in this encounter Plan of Treatment Not on file documented as of this encounter Visit Diagnoses Not on filedocumented in this encounter Care Teams Lighting Designer Relationship Specialty Start Date End Date Elsewhere, Pcp PCP - General Internal Medicine 04/08/23 documented as of this encounter
--- OUTSIDE RECORDS SUMMARY | 2023-11-30 11:17 | XMS_ITS | Encounter Summary ---
Author Name Unknown Organization [facility] Address [address] [place] [address] Care Team Providers Care Machining Department Supervisor Name Role Phone Elsewhere, Pcp Primary Care Provider Unavailabl e Reason for Visit * Reason Onset Date Comments Form Review 04/25/2023 [facility] order [id number] Encounter Details Date Type Department Care Team (Latest Contact Info) Description 04/25/2023 Clinical Communication [facility] in [place], [place] [address] [place] [phone] Marj Tang V., EDMUNDO, C.N.P. [address] [place] [phone] Form Review ([facility] order [id number]) Social History Tobacco Use Types Packs/Day Years [...] encounter Miscellaneous Notes * Telephone Encounter - Valentina Valdez - 04/27/2023 9:17 AM CDT Form faxed back to facility. Copy sent to [facility] for scanning. * Telephone Encounter - Valentina Valdez - 04/25/2023 8:10 PM CDT Form was emailed to Marj Tang CNP, for electronic review/signature. CHIEF FINANCIAL OFFICER: [facility] PHONE NUMBER: [phone] INFO REQUESTED: Order [id number] INSTRUCTIONS: Fax information to [phone] documented in this encounter Plan of Treatment Not on file documented as of this encounter Visit Diagnoses Not on filedocumented in this encounter Care Teams Machining Department Supervisor Relationship Specialty Start Date End Date Elsewhere, Pcp PCP - General Internal Medicine 04/08/23 documented as of this encounter
--- OUTSIDE RECORDS SUMMARY | 2023-11-30 11:17 | XMS_ITS | Referral Summary ---
Author Name Unknown Organization [facility] Address [address] [place] [address] Care Team Providers Care Open Hearth Worker Name Role Phone Elsewhere, Pcp Primary Care Provider Unavailabl e Source Comments Patient records contain information from all sites at [facility]. For routine questions regarding patient records, call [phone] during business hours, M-F 8:00 AM - 5:00 PM Central Time. Record requests for emergency care only can be directed to [phone] at any time.[facility] Allergies Active Allergy Reactions Criticality Noted Date Comments Aspirin Other (see comments) 01/30/2023 Unknown Iodinated Contrast Media Other (see comments) 0 01/30/2023 Unknown Iodine Other (see comments) 01/30/2023 Unknown Lisinopril Other (see comments) 01/30/2023 unknown Penicillin Other (see comments) 01/30/2023 Unknown [place] Other (see comments) 01/30/2023 Sulfa (Sulfonamide Antibiotics) [...] Active Problems Problem Noted Date Diagnosed Date Fpc Stay Certification Exam 03/29/2023 Overview: Short-term Last [...] & Plan: Regular BM daily in the group home. History Of Falling 02/15/2023 Overview: Multiple falls [...] been normotensive and hemodynamically stable in the group home. He takes midodrine 5 mg tid if systolic B/P is < 140 . He also wears an abdominal binder and compression stockings. Continue current plan. Jail (Current) Anticoagulant Treatment 01/25 Overview: On rivaroxaban [...] 01/30/2023 Overview: Atrial fibrillation on sotalol and chcf anticoagulation with Xarelto 20 mg. ?? Admission [...] confined to his/her home and needs intermittent usp care, physical therapy and/or speech therapy or continues to need occupational therapy. A plan of care has been established and will be reviewed periodically by a physician or allowed practitioner. Services will be furnished while the patient is under the care of a physician or allowed practitioner. The patient had a [id number] encounter with a physician or an allowed non-physician practitioner and the encounter was related to the primary reason for home health. Date of Face to Face Encounter: 04/06/23 Based on my finding, review of the medical records, and/or collaboration with the other providers, the following services are medically necessary home health services: Physical Therapy, Occupational Therapy, Medication set up and OUTPATIENT PSYCHIATRIST This patient is confined to his home because: Patient requires cares and assistance of another individual, does not drive, and needs the assistance of others to leave the home. Provider following for home care services: Dr. Arevalo [facility] Marj Tang APRN, C.N.P. 04/06/23 Rhinitis Allergic [...] syndrome. Followed by Dr. Oscar Miner through [place] [facility] [facility]. Last Assessment & Plan: Continue planned device [...] the renal function is stable. Resulting Agency [facility] Last Assessment & Plan: On amlodipine 10 mg daily. No leg edema. Decline Cognitive 01/30/2023 03/29/2023 Overview: Dementia per Hospital record Last Assessment & Plan: Therapy will evaluate him in the group home setting. Pacemaker Cardiac Status Post 01/30/2023 01/30/2023 [...] Mass Index - - Plan of Treatment Not on file Care Teams Open Hearth Worker Relationship Specialty Start Date End Date Elsewhere, Pcp PCP - General Internal Medicine 04/08/23
--- OUTSIDE RECORDS SUMMARY | 2023-11-30 11:17 | XMS_ITS | Encounter Summary ---
Author Name Unknown Organization [facility] Address [address] [place] [address] Care Team Providers Care Orthopedic Technician Name Role Phone Elsewhere, Pcp Primary Care Provider Unavailabl e Reason for Visit * Reason Onset Date Comments Form Review 06/11/2023 Aida [id number] Encounter Details Date Type Department Care Team (Latest Contact Info) Description 06/11/2023 Clinical Communication Department of Family Medicine, [facility], in [place], [place] [address] [place] [address] Biju Perry P.A.-C., P.A. [address] [place] [phone] Form Review (Aida [id number]) Social History Tobacco Use Types Packs/Day Years [...] encounter Miscellaneous Notes * Telephone Encounter - Judy Manley - 06/12/2023 2:30 PM CDT Form faxed back to the listed facility Scanned into [facility] (Sweep Folder-Routine) * Telephone Encounter - Judy Manley - 06/11/2023 4:24 PM CDT Form was emailed to Vicky Tang for electronic review/signature. ASSOCIATE LOAN OFFICER: Aida [employer] PHONE NUMBER: na INFO REQUESTED: [id number] INSTRUCTIONS: Fax information to [phone] [place] documented in this encounter Plan of Treatment Not on file documented as of this encounter Visit Diagnoses Not on filedocumented in this encounter Care Teams Orthopedic Technician Relationship Specialty Start Date End Date Elsewhere, Pcp PCP - General Internal Medicine 04/08/23 documented as of this encounter
--- OUTSIDE RECORDS SUMMARY | 2023-11-30 11:17 | XMS_ITS ---
Author Name Unknown Organization [facility] Address [address] [place] [address] Care Team Providers Care Germination Worker Name Role Phone Unavailable Unavailable Unavailable Surgery Details Not on file Complications Check Surgery Details section. Procedure Estimated Blood Loss Check Surgery Details section. Procedure Findings Check Surgery Details section. Procedure Specimens Taken Check Surgery Details section.
--- OUTSIDE RECORDS SUMMARY | 2023-11-30 11:17 | XMS_ITS | Encounter Summary ---
Author Name Unknown Organization [facility] Address [address] [place] [address] Care Team Providers Care Director Workers Compensation Name Role Phone Rick SoteloN.Rishi, M.S.N. Primary Care Pr ovider Reason for Referral * Outpatient (Routine) - Authorized Specialty Diagnoses / Procedures Referred By Eri jay Referred To Contact Diagnoses Atrial Fibrillation Paroxysmal (HCC) Procedures ECG 12 Lead Rick Sotelo C.NAn, M.S.N. [address] [place] [address] [facility] Region Referral ID Status Reason Start Date Expiration Date V isits Requested Visits Authorized [id number] Authorized 03/29/2023 03/28/2024 1 1 Reason for Visit * Reason Comments senior care medication reconciliation * Appointment Request (Routine) - Closed Specialty Diagnoses / Procedures Referred By Eri jay Referred To Contact [facility] Facility Referral ID Status Reason Start Date Expiration Date Visits Re quested Visits Authorized [id number] Closed 03/24/2023 03/23/2024 1 1 Encounter Details Date Type Department Care Team (Latest Contact Info) Description 03/25/2023 10:00 AM CDT External Outreach Senior Services in [facility] [address] [place] [phone] Rick Sotelo C.N.Rishi, M.S.N. 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; Dementia (HCC); Rhinitis Allergic; Hypotension Orthostatic; Atrial Fibrillation Paroxysmal (HCC); Gastroesophageal Reflux Disease Without Esophagitis; Constipation Slow Transit; Primary Malignant Neoplasm Of Prostate (HCC); Hypertension And Chronic Kidney Disease Stage 2; Hypothyroidism; Hyperlipidemia Mixed; Pacemaker Cardiac Status Post; Assisted (Current) Anticoagulant Treatment; History Of Falling; Depression Anxiety; Alcohol Use Unspecified Uncomplicated; Mcfp Stay Certification Exam Social History Tobacco Use Types Packs/Day Years [...] Sign Reading Time Taken Comments Blood Pressure 130/72 03/25/2023 9:51 AM CDT Pulse 77 03/25/2023 9:51 AM CDT Temperature 36.4 ??C (97.5 ??F) 03/25/2023 9:51 AM CD T Respiratory Rate 18 03/25/2023 9:51 AM CDT Oxygen Saturation 97% 03/25/2023 9:51 AM CDT ra Inhaled Oxygen Concentration - - Weight 82.4 kg (181 lb 9.6 oz) 03/25/2023 9:51 A M CDT Height - - Body Mass Index - - documented in this encounter H&P Notes * Rick Sotelo APRN, C.N.P. - 03/25/2023 10:00 AM CDT Images from the original note were not included. CHIEF COMPLAINT / REASON FOR VISIT [facility] medication reconciliation Visit senior care medication reconciliation Visit Type: In Person: Face to Face SUBJECTIVE HISTORY OF PRESENT ILLNESS Today's narrative history (obtained from the patient and nursing): Abraham Mancuso is an 82-year-old male resident at [facility].Medical history significant for history of atrial fibrillation, s/p pacemaker placement for bradycardia, COPD, BPH. Patient was recently discharged from [facility]. On 03/16/2023, patient re-presented to [facility] from [facility] with shortness of breath and presyncopal symptoms (dizziness worse with standing up) that have been ongoing for several months but progressively worsening. He has had multiple ED/hospital admission in the past 1 year: In January 2023, he had a syncopal episode and fall with scalp hematoma 03/09/23: ER visit for gastroenteritis and BRBPR 03/14/23: ER visit SOB, urinary hesitancy and urgency. Was in a fib with controlled rates at the time. CT abd and pelvis showed right LL patchy opacity for pneumonia. Also showed mild prostate enlargement with calcifications. Recommended admission but patient declined. Prescribed cefdinir and azithromycin but unsure if he started this medication. On 03/16/23, patient called 911 for assistance due to short of breath and dizziness. In the ED, patient had A fib with RVR and was transferred to [facility] for cardiology input. On admission, his Flomax was discontinued due to orthostasis. Echocardiogram on 03/16/23 was significant for newly reduced EF of 45%. Pacemaker interrogation showed that patient has been in atrial fibrillation since 03/14/23 with variable ventricular rates. Cardiac CT negative for AMAYA thrombus or concern for obstructive CAD. NM scan for amyloid grossly negative. Underwent DCCV 03/18/23 with initial scientology of AV Paced rhythm with early recurrence of afib less than 5 minutes after cardioversionthen converted to AV paced rhythm. Limited ECHO 03/19 with ejection fraction of 40-45%. Sotalol changed to amiodarone due to ongoing orthostatic hypotension. Orthostatic symtoms improved a little bit since admission but still unable to stand or ambulate. Midodrine increased to 5 TID on 03/22/23. Florinef was added too on 03/19/23. Cardiology recommended he uses abdominal binder always before gettingout of bed, give Midodrine 30 minutes before he gets out of bed. Today, patient is seen for senior living medication reconciliation. Nursing and therapy reported improvement in orthostatic blood pressure with 108/71 supine, 107/71 sitting, 103/68 standing. But, reported worsening depression and low appetite. TALENT ACQUISITION CONSULTANT suggested low dose of mirtazapine for his depressionand low appetite but family does not want additional treatment for depression at this time. Nursingwill continue to monitor patient overall condition. Outpatient recommendation Atrial fibrillation with rapid ventricular response, pacemaker in place, QTC prolongation, left ventricle dysfunction S/P direct current cardioversion - monitor symptoms, rhythm - follow up with Cardiology - EKG in 2 days - monitor amiodarone, Xarelto Orthostatic hypotension - monitor symptoms, orthostatic vitals - monitor Midodrine( gibe 30 minutes before he gets out of bed) florinef - Consider increasing Midodrine if symptoms persist - follow up pending lab, plasma Metanephrines - Recommendations for orthostatic hypotension (per Dr. Pederson/discussed with Dr. Mcmahan): 1.Try to avoid prolonged bed rest, elevation of head of bed has been helpful try 6 using blocks 2. Abdominal binder 3. Midodrine may help but must be dosed in am 30 min before he gets up then usually q 4 hours for 3or 4 additional doses. Avoid drug after about 4 PM to avoid tachyphylaxis. Problem with this medication is that hypertension especially in supine position can be an issue. 5. Droxidopa can be tried with some success but cost at times can be prohibited. 6. Atomoxetine has been reported to help in pateint's with high catecholamines. We personally do not have any experience with the latter. Upright serum catecholamines are available [facility]. Note there is an excellent chapter in Up to date regarding stepwise approach to treat orthostatic hypotension. 7. Discussed limiting/avoiding alcohol use The following medical problems were actively reviewed (including updating overview sections as necessary) and addressed as part of today's visit: Diagnosis Overview 1. Hyperlipidemia Mixed Hyperlipidemia mixed on atorvastatin 40 mg 2. Hypothyroidism On levothyroxine 175 mcg daily . Lab Results Component Value Date TSH 0.15 (L) 03/17/2023 3. Atrial Fibrillation Paroxysmal (HCC) Atrial fibrillation on sotalol and group home anticoagulation with Xarelto 20 mg. Admission 03/16/2023 with AFib/RVR. Cardioversion to paced rhythm on 03/18. Sotalol discontinued in favor of amiodarone. 4. Primary Malignant Neoplasm Of Prostate (HCC) EXT PSA Tumor Marker 0.00 - 4.00 ug/L <0.04 Resulting Agency [facility] Follows with Urology. On tamsulosin. 5. Injury Head Intracranial Closed With Loss Of Consciousness Subsequent 01/26/2023. Stumbled in garage. Hit had and lost consciousness for unknown period of time. Facial injuries. Impression 1. Frontal scalp hematoma without calvarial fracture or intracranial bleed. 2. Cerebral atrophy with nonspecific white matter disease, likely microangiopathy. 3. 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 4. Chronic appearing sinus disease, mildly progressive compared to the 2019 exam. 6. Rhinitis Allergic Has fluticasone nasal spray and cetrizine prn. 7. Depression Anxiety Takes Fluoxetine 80 mg daily 8. Gastroesophageal Reflux Disease Without Esophagitis On omeprazole 20 mg daily with prn Gaviscon 9. 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 Followed by Dr. Oscar Miner through [facility]. 10. History Of Falling Multiple falls at home. Likely multifactorial including advanced age, deconditioning, sensory deficits, orthostatic hypotension, and alcohol use. 11. Alcohol Use Unspecified Uncomplicated He has been drinking on a daily basis for an unknown period of time. 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 12. Hypertension And Chronic Kidney Disease Stage 2 Blood pressure controlled with amlodipine. Lab Results Component Value Date NA 138 03/26/2023 KSERUM 3.4 (L) 03/26/2023 CL 104 03/26/2023 BICARB 21 (L) 03/21/2023 CREATININE 0.97 03/26/2023 EGFRBLKAA >60 04/01/2021 EGFRNONBLKAA 60 (L) 04/01/2021 BUN 14 03/26/2023 ANIONGAP 8 03/26/2023 GLUCOSE 91 03/26/2023 CALCIUM 8.7 03/26/2023 13. Assembler Flexible Leads (Current) Anticoagulant Treatment On rivaroxaban in the setting of atrial fibrillation. 14. Dementia (HCC) Likely multifactorial including alcohol. Has required assistance from daughter. Sundowning present. 15. Constipation Slow Transit Slow transit on Senna as needed. 16. 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 Currently taking midodrine and fludrocortisone Using abdominal binder and Kermit hose BP- 108/71-supine 108/71-sitting 103/68 Standing 98/65 99/63 17. Mcfp Stay Certification Exam Short-term Past medical/surgical history, social history, medications, and allergies were reviewed and are visible in the Encounter view. Review of systems was performed, as allowable by patient's cognitive status, and incorporating collateral history if applicable. Relevant positives are noted elsewhere in this note, otherwise negative. OBJECTIVE BP 130/72 Pulse 77 Temp 36.4 ??C Resp 18 Wt 82.4 kg SpO2 97% Comment: ra Constitutional General: He is not in acute distress. Seated on the chair. Appearance: Normal appearance. Comments: HENT Right Ear: External ear normal. Left Ear: External ear normal. Mouth: Mucous membranes are moist. Cardiovascular Rate and Rhythm: Normal rate and regular rhythm. Heart sounds: Normal heart sounds. Pulmonary Effort: Pulmonary effort is normal. Breath sounds: Normal breath sounds. Abdominal General: Bowel sounds are normal. Abdominal Palpations: Abdomen is soft. Musculoskeletal Right lower leg: No edema. Kermit stockings applied. Left lower leg: No edema. Kermit stockings applied. Skin General: Skin is warm and dry. Neurological Mental Status: He is alert. Mental status is at baseline. Psychiatric Mood and Affect: Mood normal. ASSESSMENT / PLAN Full background details regarding problems addressed at today's visit can be found in the HPI. Pertinent changes to the care plan based on today's evaluation are explicitly discussed below, otherwiselisted problems are stable and present management will be continued. #1 Hypotension Orthostatic Idiopathic - CBC without Differential; Future; Expected date: 04/01/2023 - Basic Metabolic Panel; Future; Expected date: 04/01/2023 #2 Injury Head Intracranial Closed With Loss Of Consciousness Subsequent #3 Dementia (HCC) Assessment & Plan: No concerns per nursing. Orders: - Magnesium; Future; Expected date: 04/01/2023 #4 Rhinitis Allergic Assessment & Plan: No cocerns. Continue care plan. #5 Hypotension Orthostatic Assessment & Plan: Orthostatic blood pressure Improving with midodrine, abdominal binder compression stockings. Mild dizziness in the morning getting out of bed. Patient encouraged to get up slowly and ensure abdominalapplied before getting out of bed. Will continue care plan. #6 Atrial Fibrillation Paroxysmal (HCC) Assessment & Plan: HR range 60-84. Continue care plan Orders: - ECG 12 Lead; Future; Expected date: 03/29/2023 #7 Gastroesophageal Reflux Disease Without Esophagitis Assessment & Plan: Asymptomatic. Continue care plan. #8 Constipation Slow Transit Assessment & Plan: Denied. continue care plan. #9 Primary Malignant Neoplasm Of Prostate (HCC) Assessment & Plan: Denied urinary tension or concerns. Continue care plan #10 Hypertension And Chronic Kidney Disease Stage 2 Assessment & Plan: Blood pressure normotensive. Continue care plan #11 Hypothyroidism - S-TSH (Thyroid-Stimulating Hormone - Sensitive); Future; Expected date: 04/28/2023 #12 Hyperlipidemia Mixed Assessment & Plan: Continue care plans #13 Pacemaker Cardiac Status Post Assessment & Plan: Intact and functioning. #14 Assembler Flexible Leads (Current) Anticoagulant Treatment Assessment & Plan: Continue care plan #15 History Of Falling Assessment & Plan: Continue PT/OT. #16 Depression Anxiety Assessment & Plan: Patient reported increasing depression mood has been very depressed due to issues with but feels better this morning after talking to her. He mentioned his appetite is low. He agreed to trying mirtazapine but his daughter mentioned the family is not interested in additional medication at this time. They will like to monitor things at this time. Current PHQ-9 not available. Will have facility social organization professor check PHQ-9. Continue care plan. #17 Alcohol Use Unspecified Uncomplicated #18 Mcfp Stay Certification Exam Assessment & Plan: Patient stated family is planning to has been transitioned to [facility] in the future. Patient remains appropriate SNF resident. Order summary paperwork signed following our visit, this included review of medications and orders. Current comorbidities, ADL need/level of debility requires skilled care/therapy. Medications and labs all reviewed and appropriate related to comorbidities, unless otherwise indicated. Physician order sheet signed. Continue PT/OT therapy, nutrition intervention, skin protection, and fall prevention. # 18 Disposition Planning This is a planned short-term senior living stay for rehabilitation. Patient plans to return to previous living situation at the completion of therapies. It is likely that he will need increased in-home services versus assisted living versus long-term care. # 19 Mcfp Stay Justification Exam Current comorbidities, ADL need/level of debility requires skilled care/therapy. Medications and labs all reviewed and appropriate related to comorbidities, unless otherwise indicated. Physician order sheet signed. Continue physical therapy, occupational therapy, nutrition intervention, skin protection, and fall prevention. PATIENT EDUCATION Patient is cognitively impaired. Explained diagnosis and treatment plan; caregiver expressed understanding of the content. BILLING Billing based on: Time, including the following tasks: reviewing the electronic medical record, updating the EPIC Problem List, reviewing written facility- provided information, reviewing information in facility EMR, medication reconciliation, obtaining collateral history from facility staff, obtaining collateral history from family member(s), Interviewing and examining the patient, placing orders, communicating orders to facility. Total time 40 minutes. documented in this encounter Miscellaneous Notes * Assessment & Plan Note - Rick Sotelo APRN, C.N.P. - 03/29/2023 10:30 PM CDTAssociated Problem(s): Mcfp Stay Certification Exam Patient stated family is planning to has been transitioned to [facility] in the future. Patient remains appropriate SNF resident. Order summary paperwork signed following our visit, this included review of medications and orders. Current comorbidities, ADL need/level of debility requires skilled care/therapy. Medications and labs all reviewed and appropriate related to comorbidities, unless otherwise indicated. Physician order sheet signed. Continue PT/OT therapy, nutrition intervention, skin protection, and fall prevention. * Assessment & Plan Note - Rick Sotelo APRN, C.N.P. - 03/29/2023 7:54 PM CDTAssociated Problem(s): Depression Anxiety Patient reported increasing depression mood has been very depressed due to issues with but feels better this morning after talking to her. He mentioned his appetite is low. He agreed to trying mirtazapine but his daughter mentioned the family is not interested in additional medication at this time. They will like to monitor things at this time. Current PHQ-9 not available. Will have facility social organization professor check PHQ-9. Continue care plan. * Assessment & Plan Note - Rick Sotelo APRN, C.N.P. - 03/29/2023 7:53 PM CDTAssociated Problem(s): History Of Falling Continue PT/OT. * Assessment & Plan Note - Rick Sotelo APRN, C.N.P. - 03/29/2023 7:53 PM CDTAssociated Problem(s): Assisted (Current) Anticoagulant Treatment Continue care plan * Assessment & Plan Note - Rick Sotelo APRN, C.N.P. - 03/29/2023 7:53 PM CDTAssociated Problem(s): Pacemaker Cardiac Status Post Intact and functioning. * Assessment & Plan Note - Rick Sotelo APRN, C.N.P. - 03/29/2023 7:52 PM CDTAssociated Problem(s): Hyperlipidemia Mixed Continue care plans * Assessment & Plan Note - Rick Sotelo APRN, C.N.P. - 03/29/2023 7:49 PM CDTAssociated Problem(s): Hypertension And Chronic Kidney Disease Stage 2 Images from the original note were not included. Blood pressure normotensive. Continue care plan * Assessment & Plan Note - Rick Sotelo APRN, C.N.P. - 03/29/2023 7:48 PM CDTAssociated Problem(s): Primary Malignant Neoplasm Of Prostate (HCC) Denied urinary tension or concerns. Continue care plan * Assessment & Plan Note - Rick Sotelo APRN, C.N.P. - 03/29/2023 7:48 PM CDTAssociated Problem(s): Constipation Slow Transit Denied. continue care plan. * Assessment & Plan Note - Rick Sotelo APRN, C.N.P. - 03/29/2023 7:47 PM CDTAssociated Problem(s): Gastroesophageal Reflux Disease Without Esophagitis Asymptomatic. Continue care plan. * Assessment & Plan Note - Rick Sotelo APRN, C.N.P. - 03/29/2023 7:46 PM CDTAssociated Problem(s): Atrial Fibrillation Paroxysmal (HCC) HR range 60-84. Continue care plan * Assessment & Plan Note - Rick Sotelo APRN, C.N.P. - 03/29/2023 7:42 PM CDTAssociated Problem(s): Hypotension Orthostatic Orthostatic blood pressure Improving with midodrine, abdominal binder compression stockings. Mild dizziness in the morning getting out of bed. Patient encouraged to get up slowly and ensure abdominalapplied before getting out of bed. Will continue care plan. * Assessment & Plan Note - Rick Sotelo APRN C.N.P. - 03/29/2023 7:35 PM CDTAssociated Problem(s): Rhinitis Allergic No cocerns. Continue care plan. * Assessment & Plan Note - Rick Sotelo APRN C.N.P. - 03/29/2023 7:34 PM CDTAssociated Problem(s): Dementia (HCC) No concerns per nursing. documented in this encounter Plan of Treatment Scheduled Orders Name Type Priority Associated Diagnoses Orde r Schedule ECG 12 Lead ECG Routine Atrial Fibrillation Paroxysmal (HCC) Expected: 03/29/2023 (Approximate), Expires: 06/29/2024 documented as of this encounter Visit Diagnoses Diagnosis Hypotension Orthostatic Idiopathic- Primary Injury Head Intracranial Closed With Loss Of Consciousness Subsequent Dementia (HCC) Rhinitis Allergic Hypotension Orthostatic Atrial Fibrillation Paroxysmal (HCC) Gastroesophageal Reflux Disease Without Esophagitis Constipation Slow Transit Primary Malignant Neoplasm Of Prostate (HCC) Hypertension And Chronic Kidney Disease Stage 2 Hypothyroidism Hyperlipidemia Mixed Pacemaker Cardiac Status Post Assembler Flexible Leads (Current) Anticoagulant Treatment History Of Falling Depression Anxiety Alcohol Use Unspecified Uncomplicated Mcfp Stay Certification Exam documented in this encounter Care Teams Director Workers Compensation Relationship Specialty Start Date End Date Rick Sotelo C.N.PYu, M.S.N. [address] [place] [address] PCP - General Internal Medicine 5/30/23 6/13/23 documented as of this encounter
--- OUTSIDE RECORDS SUMMARY | 2023-11-30 11:17 | XMS_ITS | Encounter Summary ---
Author Name Unknown Organization [facility] Address [address] [place] [address] Care Team Providers Care Set Up Mechanic Coil Winding Machines Name Role Phone Elsewhere, Pcp Primary Care Provider Unavailabl e Reason for Visit * Reason Onset Date Comments Form Review 05/14/2023 Aida (Order [id number] Encounter Details Date Type Department Care Team (Latest Contact Info) Description 05/14/2023 Clinical Communication Department of Community Internal Medicine in [place], [place] [address] [place] [address] Marj Tang V., EDMUNDO, C.N.P. [address] [place] [phone] Form Review (Aida (Order [id number]) Social History Tobacco Use Types Packs/Day Years Used Date Smoking Tobacco: Never Smokeless Tobacco: Never Nutrition Answer Date Recorded Nutrition: EVOO Fat Source Unknown 12/24 Nutrition: Servings of Fruits/Vegetables per Day Not on file 12/24/2020 Dental Answer Date Recorded Dental: Regular Dentist Unknown 12/25/19 Sex and Gender Information Value Date Recorded Sex Assigned at Not on file Gender Identity Not on file Sexual Orientation Not on file documented as of this encounter Miscellaneous Notes * Telephone Encounter - Saloni Johnston, C.Ph.T. - 05/15/2023 8:55 AM CDT Faxed back. Uploaded to Sweep Folder to be scanned into patient's chart. * Telephone Encounter - Saloni Johnston C.Ph.T. - 05/14/2023 5:02 PM CDT Form was emailed to Marj Tang APRN, CNP for electronic review/signature. FIRST COAT SANDER: [facility] PHONE NUMBER: [phone] INFO REQUESTED: Order [id number] INSTRUCTIONS: Fax information to [phone] documented in this encounter Plan of Treatment Not on file documented as of this encounter Visit Diagnoses Not on filedocumented in this encounter Care Teams Set Up Mechanic Coil Winding Machines Relationship Specialty Start Date End Date Elsewhere, Pcp PCP - General Internal Medicine 04/08/23 documented as of this encounter
--- OUTSIDE RECORDS SUMMARY | 2023-11-30 11:17 | XMS_ITS | Encounter Summary ---
Author Name Unknown Organization [facility] Address [address] [place] [address] Care Team Providers Care Anglesmith Helper Name Role Phone Elsewhere, Pcp Primary Care Provider Unavailabl e Reason for Visit * Reason Onset Date Comments Form Review 04/23/2023 [facility] order [id number] Encounter Details Date Type Department Care Team (Latest Contact Info) Description 04/23/2023 Clinical Communication Department of Community Internal Medicine in [place], [place] [address] [place] [phone] Marj Tang V., EDMUNDO, C.N.P. [address] [place] [phone] Form Review ([facility] order [id number] ) Social History Tobacco Use Types Packs/Day Years [...] * Telephone Encounter - Valentina Valdez - 04/23/2023 12:36 PM CDT Form faxed back to facility. Copy sent to [facility] for scanning. * Telephone Encounter - Valentina Valdez - 04/23/2023 9:02 AM CDT Form was emailed to Marj Tang CNP, for electronic review/signature. PROCESS CONTROL TECH: [facility] PHONE NUMBER: [phone] INFO REQUESTED: Order [id number] INSTRUCTIONS: Fax information to [phone] documented in this encounter Plan of Treatment Not on file documented as of this encounter Visit Diagnoses Not on filedocumented in this encounter Care Teams Anglesmith Helper Relationship Specialty Start Date End Date Elsewhere, Pcp PCP - General Internal Medicine 04/08/23 documented as of this encounter
--- OUTSIDE RECORDS SUMMARY | 2023-11-30 11:17 | XMS_ITS | Encounter Summary ---
Author Name Unknown Organization [facility] Address [address] [place] [address] Care Team Providers Care Crm Marketing Manager Name Role Phone Rick SoteloNAn, M.S.N. Primary Care Pr ovider Reason for Referral * Outpatient (Routine) - Authorized Specialty Diagnoses / Procedures Referred By Eri jay Referred To Contact Diagnoses Atrial Fibrillation Paroxysmal (HCC) Procedures ECG 12 Lead Nohelia De La Cruz M.D. [address] [place] [phone] [facility] Region Referral ID Status Reason Start Date Expiration Date V isits Requested Visits Authorized [id number] Authorized 03/26/2023 03/25/2024 1 1 Reason for Visit * Reason Comments Routine Snf Visit SNF admission * Appointment Request (Routine) - Closed Specialty Diagnoses / Procedures Referred By Contac t Referred To Contact [facility] Facility Referral ID Status Reason Start Date Expiration Date Visits Re quested Visits Authorized [id number] Closed 03/24/2023 03/23/2024 1 1 Encounter Details Date Type Department Care Team (Latest Contact Info) Description 03/26/2023 3:00 PM CDT External Outreach Senior [facility] in [facility] [address] [place] [phone] Nohelia Garrido M.D. 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 Treatment; Pacemaker Cardiac Status Post; Primary Malignant Neoplasm Of Prostate (HCC); Rhinitis Allergic; Hypotension Orthostatic Social History Tobacco Use Types Packs/Day Years [...] Sign Reading Time Taken Comments Blood Pressure 145/87 03/26/2023 6:41 PM CDT Pulse 80 03/26/2023 6:41 PM CDT Temperature 36.7 ??C (98.1 ??F) 03/26/2023 6:41 PM CD T Respiratory Rate 18 03/26/2023 6:41 PM CDT Oxygen Saturation 90% 03/26/2023 6:41 PM CDT Room air Inhaled Oxygen Concentration - - Weight - - Height - - Body Mass Index - - documented in this encounter Patient Instructions * Patient Instructions* Nohelia De La Cruz M.D. - 03/26/2023 3:00 PM CDT PPX to perform EKG to follow-up atrial fibrillation with RVR ORDERS and INSTRUCTIONS: Orders Placed This Encounter ECG 12 Lead Standing Status: Future Standing Expiration Date: 06/26/2024 Scheduling Instructions: PPX to perform at [facility] Order Specific Question: Region: Answer: [facility] Region [[id number]] Electronically signed by: Nohelia De La Cruz M.D. 03/26/23 2:07 PM CDT documented in this encounter H&P Notes * Nohelia De La Cruz M.D. - 03/26/2023 3:00 PM CDT CHIEF COMPLAINT / REASON FOR VISIT [facility] Admission Visit Visit Type: In Person: Face to Face Living situation prior to admission: Home with . No services Primary care provider: Dr. Arevalo, [facility] SUBJECTIVE HISTORY OF PRESENT ILLNESS Today's narrative history (obtained from Patient and Nursing): Abraham Mancuso was admitted to [facility] on 03/24/2023 from [facility]. Patient was admitted there on 03/16 with lightheadedness found secondary to atrial fibrillation withRVR. In retrospect, pacemaker interrogation showed that he had been in atrial fibrillation since 03/14. He underwent cardioversion on 03/18, converted eventually to AV paced rhythm. Sotalol was switched to amiodarone due to ongoing orthostatic hypotension, which has been a longstanding problem. For this, he was started on Florinef and midodrine was increased. The past medical history is significant for pacemaker placement 08/01/2022, longstanding and debilitating orthostatic hypotension with multiple falls, COPD, history of prostate cancer on tamsulosin, hypothyroidism. Since admission to [facility], he has had no falls. He has no complaints but doeswant to go home. He expresses desire to go home at some point whether or not he is able to safely care for himself as he wants to live life the way he wants to live. The following medical problems were actively reviewed (including updating overview sections as necessary) and addressed as part of today's visit: Diagnosis Overview 1. Atrial Fibrillation Paroxysmal (HCC) - Primary Atrial fibrillation on sotalol and long term care administrator anticoagulation with Xarelto 20 mg. Admission 03/16/2023 with AFib/RVR. Cardioversion to paced rhythm on 03/18. Sotalol discontinued in favor of amiodarone. 2. Constipation Slow Transit Slow transit on Senna as needed. 3. Dementia (HCC) Likely multifactorial including alcohol. Has required assistance from daughter. Sundowning present. 4. Depression Anxiety Takes Fluoxetine 80 mg daily 5. Gastroesophageal Reflux Disease Without Esophagitis On omeprazole 20 mg daily with prn Gaviscon 6. History Of Falling Multiple falls at home. Likely multifactorial including advanced age, deconditioning, sensory deficits, orthostatic hypotension, and alcohol use. 7. Hyperlipidemia Mixed Hyperlipidemia mixed on atorvastatin 40 mg 8. Hypertension And Chronic Kidney Disease Stage 2 Blood pressure controlled with amlodipine. Most recent GFR 78. 9. 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 Currently taking midodrine and fludrocortisone Using abdominal binder and Kermit hose 10. Hypothyroidism On levothyroxine 175 mcg daily 11. Prison (Current) Anticoagulant Treatment On rivaroxaban in the setting of atrial fibrillation. 12. 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 Followed by Dr. Oscar Miner through [facility]. 13. Primary Malignant Neoplasm Of Prostate (HCC) EXT PSA Tumor Marker 0.00 - 4.00 ug/L <0.04 Resulting Agency [facility] Follows with Urology. On tamsulosin. 14. Rhinitis Allergic Has fluticasone nasal spray and cetrizine prn. Past medical/surgical history, social history, medications, and allergies were reviewed and are visible in the Encounter view. Review of systems was performed, as allowable by patient's cognitive status, and incorporating collateral history if applicable. Relevant positives are noted elsewhere in this note, otherwise negative. Eating: Good appetite Diet: Cardiac diet, regular texture, regular consistency Pain: No complaints pain Mobility: Assistance with transfers and ambulation Skin concerns: No concerns Falls at facility: No Falls Continue activity: Physical therapy, occupational therapy Behavior/mood concerns: No concerns ADL status: Assist of 1 Vision, hearing or dentition concerns. Bladder: Incontinent Bowel: Continent BIMS: Pending PHQ-9: Pending OBJECTIVE BP 145/87 Pulse 80 Temp 36.7 ??C Resp 18 SpO2 90% Comment: Room air PHYSICAL EXAM GENERAL: Patient is alert and oriented. Patient is a good historian. NECK: Without adenopathy. HEART: Regular rate and rhythm. Pacemaker left upper chest. Incision well healed. LUNGS: Clear without wheeze crackle or rhonchus. ABDOMEN: Normal bowel sounds. EXTREMITIES: Normal without edema. SKIN: No rashes or unusual lesions on exposed skin. ASSESSMENT / PLAN Full background details regarding problems addressed at today's visit can be found in the HPI. Pertinent changes to the care plan based on today's evaluation are explicitly discussed below, otherwiselisted problems are stable and present management will be continued. #1 Atrial Fibrillation Paroxysmal (HCC) Assessment & Plan: Regular rhythm. Follow-up EKG. Orders: - ECG 12 Lead; Future; Expected date: 03/26/2023 #2 Constipation Slow Transit Assessment & Plan: Bowel agents available. #3 Dementia (HCC) Assessment & Plan: Cognitive testing pending. He is able to give a cogent history and seems oriented. #4 Depression Anxiety #5 Gastroesophageal Reflux Disease Without Esophagitis #6 History Of Falling #7 Hyperlipidemia Mixed #8 Hypertension And Chronic Kidney Disease Stage 2 #9 Hypothyroidism Assessment & Plan: Most recent TSH 0.15 on 03/17/2023. Levothyroxine dose decreased from 200 to 175 mcg. Will need follow-up TSH #10 Prison (Current) Anticoagulant Treatment #11 Pacemaker Cardiac Status Post #12 Primary Malignant Neoplasm Of Prostate (HCC) #13 Rhinitis Allergic #14 Hypotension Orthostatic Assessment & Plan: Midodrine is to be given prior to getting up in the morning. Additional 2 doses during the day. Hold with systolic blood pressure greater than 140. Continue abdominal binder and Kermit hose. #15 Disposition Planning This is a planned short-term half-way stay for rehabilitation. Patient plans to return to previous living situation at the completion of therapies. #16 Snf Stay Justification Exam Current comorbidities, ADL need/level of debility requires skilled care/therapy. Medications and labs all reviewed and appropriate related to comorbidities, unless otherwise indicated. Physician order sheet signed. Continue physical therapy, occupational therapy, nutrition intervention, skin protection, and fall prevention. PATIENT EDUCATION Ready to learn, no apparent learning barriers were identified; learning preferences include listening. Explained diagnosis and treatment plan; patient/child/caregiver expressed understanding of the content. BILLING Billing based on: Time, including the following tasks: reviewing the electronic medical record, updating the EPIC Problem List, reviewing information in facility EMR, medication reconciliation, obtaining collateral history from facility staff, Interviewing and examining the patient. Total time 50 minutes. documented in this encounter Miscellaneous Notes * Assessment & Plan Note - Nohelia De La Cruz M.D. - 03/28/2023 7:13 PM CDTAssociated Problem(s): Hypotension Orthostatic Midodrine is to be given prior to getting up in the morning. Additional 2 doses during the day. Hold with systolic blood pressure greater than 140. Continue abdominal binder and Kermit hose. * Assessment & Plan Note - Nohelia De La Cruz M.D. - 03/28/2023 7:11 PM CDTAssociated Problem(s): Hypothyroidism ?? Most recent TSH 0.15 on 03/17/2023. ?? Levothyroxine dose decreased from 200 to 175 mcg. ?? Will need follow-up TSH * Assessment & Plan Note - Nohelia De La Cruz M.D. - 03/28/2023 7:06 PM CDTAssociated Problem(s): Dementia (HCC) Cognitive testing pending. He is able to give a cogent history and seems oriented. * Assessment & Plan Note - Nohelia De La Cruz M.D. - 03/28/2023 7:05 PM CDTAssociated Problem(s): Constipation Slow Transit Bowel agents available. * Assessment & Plan Note - Nohelia De La Cruz M.D. - 03/28/2023 7:05 PM CDTAssociated Problem(s): Atrial Fibrillation Paroxysmal (HCC) Regular rhythm. Follow-up EKG. documented in this encounter Plan of Treatment Scheduled Orders Name Type Priority Associated Diagnoses Orde r Schedule ECG 12 Lead ECG Routine Atrial Fibrillation Paroxysmal (HCC) Expected: 03/26/2023 (Approximate), Expires: 06/26/2024 documented as of this encounter Visit Diagnoses Diagnosis Atrial Fibrillation Paroxysmal (HCC)- Primary Constipation Slow Transit Dementia (HCC) Depression Anxiety Gastroesophageal Reflux Disease Without Esophagitis History Of Falling Hyperlipidemia Mixed Hypertension And Chronic Kidney Disease Stage 2 Hypothyroidism Customer Success Manager (Current) Anticoagulant Treatment Pacemaker Cardiac Status Post Primary Malignant Neoplasm Of Prostate (HCC) Rhinitis Allergic Hypotension Orthostatic documented in this encounter Care Teams Crm Marketing Manager Relationship Specialty Start Date End Date Rick Sotelo CYuNAn, M.S.N. [address] [place] [phone] PCP - General Internal Medicine 03/24/23 04/07/23 documented as of this encounter
--- OUTSIDE RECORDS SUMMARY | 2023-11-30 11:17 | XMS_ITS | Encounter Summary ---
Author Name Unknown Organization [facility] Address [address] [place] [address] Care Team Providers Care Employment Director Name Role Phone Elsewhere, Pcp Primary Care Provider Unavailabl e Reason for Visit * Reason Onset Date Comments Form Review 05/25/2023 Aida ([id number] Encounter Details Date Type Department Care Team (Latest Contact Info) Description 05/25/2023 Clinical Communication Department of Community Internal Medicine in [place], [place] [address] [place] [phone] Marj Tang V., EDMUNDO, C.N.P. [address] [place] [phone] Form Review (Aida ([id number]) Social History Tobacco Use Types Packs/Day Years [...] encounter Miscellaneous Notes * Telephone Encounter - [place] Allan - 05/25/2023 4:36 PM CDT Form faxed back to facility and sent for scanning. * Telephone Encounter - [place] Allan - 05/25/2023 11:45 AM CDT Form was emailed to Marj Tang APRN, CNP for electronic review/signature. STEM CRUSHER: [facility] PHONE NUMBER: [phone] INFO REQUESTED: [id number] INSTRUCTIONS: Fax information to [phone] documented in this encounter Plan of Treatment Not on file documented as of this encounter Visit Diagnoses Not on filedocumented in this encounter Care Teams Employment Director Relationship Specialty Start Date End Date Elsewhere, Pcp PCP - General Internal Medicine 04/08/23 documented as of this encounter
--- OUTSIDE RECORDS SUMMARY | 2023-11-30 11:17 | XMS_ITS | Encounter Summary ---
Author Name Unknown Organization [facility] Address [address] [place] [address] Care Team Providers Care Virtual Recruiter Name Role Phone Rick Sotelo C.N.PYu, M.S.N. Primary Care Pr ovid Reason for Visit * Appointment Request (Routine) - Closed Specialty Diagnoses / Procedures Referred By Eri jay Referred To Contact [facility] Facility Referral ID Status Reason Start Date Expiration Date Visits Re quested Visits Authorized [id number] Closed 04/06/2023 04/05/2024 1 1 Encounter Details Date Type Department Care Team (Latest Contact Info) Description 04/06/2023 3:00 PM CDT External Outreach [facility] in [facility] [address] [address] Marj Tang APRN, C.N.P. 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 - 04/06/2023 3:00 PM CDT : 1940 ORDERS and INSTRUCTIONS: Face to face discharge visit done. Medications Discontinued During This Encounter Medication Reason atorvastatin (LIPITOR) 40 mg tablet Reorder fludrocortisone (FLORINEF) 0.1 mg tablet Reorder levothyroxine (SYNTHROID, LEVOTHROID) 175 mcg tablet Reorder rivaroxaban (XARELTO) 20 mg tablet Reorder midodrine (PROAMATINE) 5 mg tablet Reorder Orders Placed This Encounter atorvastatin (LIPITOR) 40 mg tablet Sig: Take 1 tablet (40 mg total) by mouth daily. Dispense: 90 tablet Refill: 3 fludrocortisone (FLORINEF) 0.1 mg tablet Sig: Take 0.5 tablets (0.05 mg total) by mouth daily. Dispense: 45 tablet Refill: 3 levothyroxine (SYNTHROID, LEVOTHROID) 175 mcg tablet Sig: Take 1 tablet (175 mcg total) by mouth daily. Dispense: 90 tablet Refill: 3 rivaroxaban (XARELTO) 20 mg tablet Sig: Take 1 tablet (20 mg total) by mouth daily with dinner. Dispense: 90 tablet Refill: 3 midodrine (PROAMATINE) 5 mg tablet Sig: Take 1 tablet (5 mg total) by mouth 3 (three) times a day with meals. Hold if systolic blood pressure greater than 140 Dispense: 90 tablet Refill: 11 Electronically signed by: Marj Tang APRN, C.N.PYu 04/06/23 4:25 PM CDT documented in this encounter Progress Notes * Marj Tang APRN, C.N.P. - 04/06/2023 3:00 PM CDT CHIEF COMPLAINT / REASON FOR VISIT [facility] Discharge Visit Visit Type: In Person: Face to Face SUBJECTIVE HISTORY OF PRESENT ILLNESS Today's narrative history (obtained from Patient and Nursing): Abraham Mancuso is a 83 y.o. male who underwent rehab at [facility] from 03/24/23to 04/09/23, after being hospitalized at [facility] from 03/16/23 to 03/24/23 for Atrial fibrillation with RVR. Abraham was admitted to [facility] on 03/16 with lightheadedness found secondary to atrial fibrillation with RVR. In retrospect, pacemaker interrogation showed that he had been in atrial fibrillation since 03/14. He underwent cardioversion on 03/18, converted eventually to AV paced rhythm. Sotalol was switched to amiodarone due to ongoing orthostatic hypotension, which has been a longstanding problem. For this, he was started on Florinef and midodrine was increased. He has not completed therapy in the group home. He wants to go home with services provided including in home PT/OT, nursing, medication set up and home health aid. The following medical problems were actively reviewed (including updating overview sections as necessary) and addressed as part of today's visit: Diagnosis Overview 1. 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 Admission 03/16/2023 with AFib/RVR. Cardioversion to paced rhythm on 03/18. Sotalol discontinued in favor of amiodarone. 2. Hyperlipidemia Mixed - Primary Hyperlipidemia mixed Continue atorvastatin 40 mg 3. Hypothyroidism On levothyroxine 175 mcg daily . Lab Results Component Value Date TSH 0.15 (L) 03/17/2023 4. Primary Malignant Neoplasm Of Prostate (HCC) [...] progressive compared to the 2019 exam. 6. Depression Anxiety Takes Fluoxetine 80 mg daily 7. Gastroesophageal Reflux Disease Without Esophagitis On omeprazole 20 mg daily with prn Gaviscon 8. 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 Followed by Dr. Oscar Miner through [facility]. 9. Alcohol Use Unspecified Uncomplicated He has been drinking on a daily basis for an unknown period of time. 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 10. Hypertension And Chronic Kidney Disease Stage 2 Blood pressure controlled with amlodipine. Lab Results Component Value Date NA 138 03/26/2023 KSERUM 3.4 (L) 03/26/2023 CL 104 03/26/2023 BICARB 21 (L) 03/21/2023 CREATININE 0.97 03/26/2023 EGFRBLKAA >60 04/01/2021 EGFRNONBLKAA 60 (L) 04/01/2021 BUN 14 03/26/2023 ANIONGAP 8 03/26/2023 GLUCOSE 91 03/26/2023 CALCIUM 8.7 03/26/2023 11. Dementia (HCC) Likely multifactorial including alcohol. Has required assistance from daughter. Sundowning present. 12. Constipation Slow Transit Slow transit on Senna as needed. 13. 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 Currently taking midodrine and fludrocortisone Using abdominal binder and Kermit hose BP- 108/71-supine 108/71-sitting 103/68 Standing 98/65 99/63 Past medical/surgical history, social history, medications, and allergies were reviewed and are visible in the Encounter view. Review of systems was performed, as allowable by patient's cognitive status, and incorporating collateral history if applicable. Relevant positives are noted elsewhere in this note, otherwise negative. OBJECTIVE BP 138/84 Pulse 84 Temp 36.1 ??C Resp 18 Wt 82.6 kg SpO2 96% PHYSICAL EXAM Vitals and nursing note reviewed. Exam conducted with a telephone maintenance mechanic present. Constitutional Appearance: Normal appearance. He is normal weight. HENT Head: Normocephalic and atraumatic. Right Ear: External ear normal. Left Ear: External ear normal. Nose: Nose normal. Mouth/Throat: Mouth: Mucous membranes are dry. Pharynx: Oropharynx is clear. Eyes Conjunctiva/sclera: Conjunctivae normal. Cardiovascular Rate and Rhythm: Normal rate and regular rhythm. Pulses: Normal pulses. Heart sounds: Normal heart sounds. Pulmonary Effort: Pulmonary effort is normal. Breath sounds: Normal breath sounds. Abdominal General: Bowel sounds are normal. Palpations: Abdomen is soft. Musculoskeletal General: Normal range of motion. Cervical back: Normal range of motion. Skin General: Skin is warm and dry. Capillary Refill: Capillary refill takes less than 2 seconds. Neurological Mental Status: He is alert. Mental status is at baseline. Psychiatric Mood and Affect: Mood normal. Behavior: Behavior normal. Thought Content: Thought content normal. Judgment: Judgment normal. ASSESSMENT / PLAN Full background details regarding problems addressed at today's visit can be found in the HPI. Pertinent changes to the care plan based on today's evaluation are explicitly discussed below, otherwiselisted problems are stable and present management will be continued. #1 Atrial Fibrillation Paroxysmal (HCC) Assessment & Plan: Rate controlled. Follow up with cardiology and PCP for thyroid and lung function monitoring on amiodarone. #2 Hyperlipidemia Mixed Assessment & Plan: Lipid management with PCP post discharge. #3 Hypothyroidism Assessment & Plan: Follow up TSH with PCP #4 Primary Malignant Neoplasm Of Prostate (HCC) Assessment & Plan: Continue current medications and urology follow up. 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 He will need Home nursing for medication management, Home Health Aid for ADL's, and In home PT/OT. OK to start PT/OT when available through [facility]. Home Health Certification/Face to Face Attestation: I certify that this patient is confined to his/her home and needs intermittent [facility] care, physical therapy and/or speech therapy or continues to need occupational therapy. A plan of care has been established and will be reviewed periodically by a physician or allowed practitioner. Services will be furnished while the patient is under the care of a physician or allowed practitioner. Thepatient had a [id number] encounter with a physician or an allowed non-physician practitioner and the encounter was related to the primary reason for home health. Date of Face to Face Encounter: 04/06/23 Based on my finding, review of the medical records, and/or collaboration with the other providers, the following services are medically necessary home health services: Physical Therapy, Occupational Therapy, Medication set up and CAPACITOR REPAIRER This patient is confined to his home because: Patient requires cares and assistance of another individual, does not drive, and needs the assistance of others to leave the home. Provider following for home care services: Dr. Arevalo [facility] Marj Tang APRN, C.N.P. 04/06/23 #6 Depression Anxiety Assessment & Plan: Continue current medication and dose. Electrolytes to be monitored by PCP post discharge. #7 Pacemaker Cardiac Status Post Assessment & Plan: Continue planned device checks. #8 Alcohol Use Unspecified Uncomplicated Assessment & Plan: He is encouraged to cut his alcohol intake. #9 Hypertension And Chronic Kidney Disease Stage 2 Assessment & Plan: He has been normotensive and hemodynamically stable in the group home. He takes midodrine 5 mg tid if systolic B/P is < 140 . He also wears an abdominal binder and compression stockings. Continue current plan. #10 Dementia (HCC) Assessment & Plan: He is having no behaviors and is on no medication. He will need home nursing aft discharge. #11 Constipation Slow Transit Assessment & Plan: Regular BM daily in the group home. #12 Hypotension Orthostatic Assessment & Plan: Continue midodrine per prescribed protocol. #13 Gastroesophageal Reflux Disease Without Esophagitis Assessment & Plan: He will routine monitoring of serum magnesium levels post discharge. Continue current medication regimen. Other orders - atorvastatin (LIPITOR) 40 mg tablet; Take 1 tablet (40 mg total) by mouth daily., Starting 04/06/2023, Until Thu04/05/2024, Normal - fludrocortisone (FLORINEF) 0.1 mg tablet; Take 0.5 tablets (0.05 mg total) by mouth daily., Starting Thu04/06/2023, Until Thu04/05/2024, Normal - levothyroxine (SYNTHROID, LEVOTHROID) 175 mcg tablet; Take 1 tablet (175 mcg total) by mouth daily., Starting Thu04/06/2023, Until Thu04/05/2024, Normal - rivaroxaban (XARELTO) 20 mg tablet; Take 1 tablet (20 mg total) by mouth daily with dinner., Starting Thu04/06/2023, Until Thu04/05/2024, Normal - midodrine (PROAMATINE) 5 mg tablet; Take 1 tablet (5 mg total) by mouth 3 (three) times a day with meals. Hold if systolic blood pressure greater than 140, Starting Thu04/06/2023, Until Thu04/05/2024, Normal #14 Disposition Discharge to home 04/09/23 Follow up:with PCP Other: Discharge Order: Abraham will discharge to home with home care, Home PT/OT, Nursing and aid. Medications ordered: yes For appointment details refer to your Patient Appointment Guide. PATIENT EDUCATION Ready to learn, no apparent learning barriers were identified; learning preferences include listening. Explained diagnosis and treatment plan; patient/child/caregiver expressed understanding of the content. BILLING Billing based on: Time, including the following tasks: reviewing the electronic medical record, updating the EPIC Problem List, medication reconciliation, obtaining collateral history from facility staff, obtaining collateral history from family member(s), communicating with specialty service(s), placing orders, communicating orders to facility. Total time 45 minutes. documented in this encounter Miscellaneous Notes * Assessment & Plan Note - Marj Tang APRN, C.N.P. - 04/06/2023 4:05 PM CDTAssociated Problem(s): Gastroesophageal Reflux Disease Without Esophagitis He will routine monitoring of serum magnesium levels post discharge. Continue current medication regimen. * Assessment & Plan Note - Marj Tang APRN, C.N.P. - 04/06/2023 4:04 PM CDTAssociated Problem(s): Hypotension Orthostatic Continue midodrine per prescribed protocol. * Assessment & Plan Note - Marj Tang APRN, C.N.P. - 04/06/2023 4:03 PM CDTAssociated Problem(s): Constipation Slow Transit Regular BM daily in the group home. * Assessment & Plan Note - Marj Tang APRN, C.N.P. - 04/06/2023 4:03 PM CDTAssociated Problem(s): Dementia (HCC) He is having no behaviors and is on no medication. He will need home nursing aft discharge. * Assessment & Plan Note - Marj Tang APRN, C.N.P. - 04/06/2023 3:59 PM CDTAssociated Problem(s): Hypertension And Chronic Kidney Disease Stage 2 He has been normotensive and hemodynamically stable in the group home. He takes midodrine 5 mg tid if systolic B/P is < 140 . He also wears an abdominal binder and compression stockings. Continue current plan. * Assessment & Plan Note - Marj Tang APRN, C.N.P. - 04/06/2023 3:58 PM CDTAssociated Problem(s): Alcohol Use Unspecified Uncomplicated He is encouraged to cut his alcohol intake. * Assessment & Plan Note - Marj Tang APRN, C.N.P. - 04/06/2023 3:58 PM CDTAssociated Problem(s): Pacemaker Cardiac Status Post Continue planned device checks. * Assessment & Plan Note - Marj Tang APRN, C.N.P. - 04/06/2023 3:57 PM CDTAssociated Problem(s): Depression Anxiety Continue current medication and dose. Electrolytes to be monitored by PCP post discharge. * Assessment & Plan Note - Marj Tang APRN, C.N.P. 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 He will need Home nursing for medication management, Home Health Aid for ADL's, and In home PT/OT. OK to start PT/OT when available through [facility]. Home Health Certification/Face to Face Attestation: I certify that this patient is confined to his/her home and needs intermittent [place] [facility] care, physical therapy and/or speech therapy or continues to need occupational therapy. A plan of care has been established and will be reviewed periodically by a physician or allowed practitioner. Services will be furnished while the patient is under the care of a physician or allowed practitioner. Thepatient had a belo-ti-[id number] encounter with a physician or an allowed non-physician practitioner and the encounter was related to the primary reason for home health. Date of Face to Face Encounter: 04/06/23 Based on my finding, review of the medical records, and/or collaboration with the other providers, the following services are medically necessary home health services: Physical Therapy, Occupational Therapy, Medication set up and CAPACITOR REPAIRER This patient is confined to his home because: Patient requires cares and assistance of another individual, does not drive, and needs the assistance of others to leave the home. Provider following for home care services: Dr. Arevalo [facility] Marj Tang APRN, C.N.P. 04/06/23 * Assessment & Plan Note - Marj Tang APRN, C.N.P. - 04/06/2023 3:45 PM CDTAssociated Problem(s): Primary Malignant Neoplasm Of Prostate (HCC) Continue current medications and urology follow up. * Assessment & Plan Note - Marj Tang APRN, C.N.P. - 04/06/2023 3:45 PM CDTAssociated Problem(s): Hypothyroidism Follow up TSH with PCP * Assessment & Plan Note - Marj Tang APRN, C.N.P. - 04/06/2023 3:44 PM CDTAssociated Problem(s): Hyperlipidemia Mixed Lipid management with PCP post discharge. * Assessment & Plan Note - Marj Tang APRN, C.N.P. - 04/06/2023 3:42 PM CDTAssociated Problem(s): Atrial Fibrillation Paroxysmal (HCC) Rate controlled. Follow up with cardiology and PCP for thyroid and lung function monitoring on amiodarone. 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 [address] [place] [address] PCP - General Internal Medicine 03/24/23 04/07/23 documented as of this encounter
--- OUTSIDE RECORDS SUMMARY | 2023-11-30 11:18 | XMS_ITS | Referral Summary ---
Author Name Unknown Organization [facility] Address [facility] [place] [address] Care Team Providers Care Optimization Manager Name Role Phone Maikel Brock Primary Care Provider [phone] Norma Cortez PA-C Unavailable Henry Vidal MD Unavailable [phone] Allergies Active Allergy Reactions Criticality Noted Date Comments Aspirin 11/01/2012 Contrast Dye 11/02/2012 hives Lisinopril 11/01/2012 Penicillins 11/01/2012 Sulfa Antibiotics 11/01/2012 Medications Medication Sig Dispensed Refills Start Date End Date Status atorvastatin (LIPITOR) 20 MG tabletIndications:Pure hypercholesterolemia TAKE 1 TABLET BY MOUTH EVERY DAY 90 tablet 0 04/21/2012 Active AmLODIPine Besylate (NORVASC PO) Take 5 mg by mouth daily. 0 Active FLUoxetine HCl (PROZAC PO) Take 40 mg by mouth daily. 0 Active Levothyroxine Sodium (SYNTHROID PO) Take 112 mcg by mouth daily. 0 Active metoprolol (TOPROL-XL) 50 MG 24 hr tablet Take 1 tablet (50 mg) by mouth daily 30 tablet 1 02/17/2014 Active SOTALOL HCL, AF, PO 0 Activ e Rivaroxaban (XARELTO PO) 0 Active tamsulosin (FLOMAX) 0.4 MG capsule Take by mouth daily 0 Active Social History Tobacco Use Types Packs/Day Years Used Date Smoking Tobacco: Former Cigarettes Q uit: 11/02/1995 Smokeless Tobacco: Never Tobacco Cessation:Counseling Given: Not Answered Alcohol Use Standard Drinks/Week Comments Yes 28 (1 standard drink = 0.6 oz pu re alcohol) Adolescent Education Answer Date Record ed Getting School Help Needed Not on file 07/26 Sex and Gender Information Value Date Recorded Sex Assigned at Not on file Gender Identity Not on file Sexual Orientation Not on file Last Filed Vital Signs Vital Sign Reading Time Taken Comments Blood Pressure 120/80 10/30/2022 9:37 AM TURKISH RUBBER Pulse 66 10/30/2022 9:37 AM [employer]URKISH RUBBER Temperature 36.6 ??C (97.9 ??F) 09/19/2017 9:41 AM CS T Respiratory Rate 20 09/19/2017 12:54 PM [employer]URKISH RUBBER Oxygen Saturation 98% 10/30/2022 9:37 AM TURKISH RUBBER Inhaled Oxygen Concentration - - Weight 88 kg (194 lb) 10/30/2022 9:37 AM TURKISH RUBBER Height 172.7 cm (5' 8) 10/30/2022 9:37 AM TURKISH RUBBER Body Mass Index 29.5 10/30/2022 9:37 AM TURKISH RUBBER Plan of Treatment Not on file Advance Directives For more information, please contact: [phone] Documents on File Type Date Recorded Patient Perfumer Expl anation Advance Directives and Living Will 11/07/2012 8:20 AM HEALTH CARE DIRECTIVE-10/09/1999 Advance Directives and Living Will 11/07/2012 8:20 AM VALIDATION OF AD-10/09/1999 Care Teams Optimization Manager Relationship Specialty Start Date End Date Maikel Brock [address] [place] [address] PCP - General Family Practice 09/19/17 Norma Cortez PA-C [address] [facility] [address] [place] [address] Physician [facility] 10/03/22 Henry Vidal MD [address] [facility] [address] [place], [place] [address] Assigned Surgical Provider 11/08/22
--- OUTSIDE RECORDS SUMMARY | 2023-11-30 11:18 | XMS_ITS | Encounter Summary ---
Author Name Unknown Organization [facility] Address [address] [place] [address] Care Team Providers Care Accounting Software Specialist Name Role Phone Rick Sotelo C.N.P., M.S.N. Primary Care Pr ovid Reason for Visit * Reason Comments Routine Correction Visit SNF admission Encounter Details Date Type Department Care Team (Latest Contact Info) Description 02/02/2023 3:00 PM CDT External Outreach Senior [facility] in [facility] [id number] [phone] Nohelia Garrido M.D. [address] [phone] Injury Head Intracranial Closed With Loss Of Consciousness Subsequent (Primary Dx); Contusion Face Subsequent; History Of Falling; Hypothyroidism; Hypertension And Chronic Kidney Disease Stage 2; Atrial Fibrillation Unspecified; Prison (Current) Anticoagulant Treatment; Pacemaker Cardiac Status Post; Primary Malignant Neoplasm Of Prostate (HCC); Depression Anxiety; Alcohol Use Unspecified Uncomplicated; Hyperlipidemia Mixed; Retention Urinary; Dementia (HCC); Rhinitis Allergic; Depressive Disorder; Gastroesophageal Reflux Disease Without Esophagitis Social History [...] Sign Reading Time Taken Comments Blood Pressure 128/72 02/02/2023 7:01 PM CDT Pulse 69 02/02/2023 7:01 PM CDT Temperature 36.4 ??C (97.6 ??F) 02/02/2023 7:01 PM CD T Respiratory Rate 18 02/02/2023 7:01 PM CDT Oxygen Saturation 96% 02/02/2023 7:01 PM CDT Room air Inhaled Oxygen Concentration - - Weight 87.5 kg (193 lb) 02/02/2023 7:01 PM CDT Height - - Body Mass Index - - documented in this encounter Patient Instructions * Patient Instructions* Nohelia De La Cruz M.D. - 02/02/2023 3:00 PM CDT Schedule Advair 1 puff daily Electronically signed by: Nohelia De La Cruz M.D. 02/15/23 8:11 PM CDT documented in this encounter Progress Notes * Nohelia De La Cruz M.D. - 02/02/2023 3:00 PM CDT CHIEF COMPLAINT / REASON FOR VISIT [facility] Admission Visit Visit Type: In Person: Face to Face Living situation prior to admission: Home with . She has dementia and daughter is primary caregiver. Primary care provider: Dr. Aervalo SUBJECTIVE HISTORY OF PRESENT ILLNESS Today's narrative history (obtained from Patient, Nursing, and Family Member): Abraham Mancuso was admitted to [facility] on 01/28/2023 after a stay at the [facility]. He was admitted there on 01/26 after a fall athome resulting in concussion with loss of consciousness. Hospital course was complicated by presence of chronic indwelling Nava catheter. He was evaluated by therapies who felt that rehabilitation stay would be beneficial. The following medical problems were actively reviewed (including updating overview sections as necessary) and addressed as part of today's visit: Diagnosis Overview 1. Alcohol Use Unspecified Uncomplicated He has been drinking on a daily basis for an unknown period of time. 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 2. Atrial Fibrillation Unspecified Atrial fibrillation on sotalol and mcc anticoagulation with Xarelto 20 mg. 3. Contusion Face Subsequent Fall with loss of consciousness 01/26/2023. Resulting in facial injuries with hematoma and abrasions. 4. Dementia (HCC) Likely multifactorial including alcohol. Has required assistance from daughter. Sundowning present. 5. Depression Anxiety Takes Fluoxetine 80 mg daily 6. Gastroesophageal Reflux Disease Without Esophagitis On omeprazole 20 mg daily with prn Gaviscon 7. History Of Falling Multiple falls at home. Likely multifactorial including advanced age, deconditioning, sensory deficits, and alcohol use. 8. Hyperlipidemia Mixed Hyperlipidemia mixed on atorvastatin 40 mg 9. Hypertension And Chronic Kidney Disease Stage 2 Blood pressure controlled with amlodipine. Most recent GFR 90. 10. Hypothyroidism On levothyroxine 200 mcg daily 11. Injury Head Intracranial Closed With Loss Of Consciousness Subsequent - Primary 01/26/2023. Stumbled in garage. Hit had and lost consciousness for unknown period of time. Facial injuries. Impression 1. Frontal scalp hematoma without calvarial fracture or intracranial bleed. 2. Cerebral atrophy with nonspecific white matter disease, likely microangiopathy. 3. 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 4. Chronic appearing sinus disease, mildly progressive compared to the 2019 exam. 12. Prison (Current) Anticoagulant Treatment On rivaroxaban in the setting of atrial fibrillation. 13. 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 Followed by Dr. Oscar Miner through [facility]. 14. Primary Malignant Neoplasm Of Prostate (HCC) EXT PSA Tumor Marker 0.00 - 4.00 ug/L <0.04 Resulting Agency [facility] Nava Catheter, urinary retention hx of cystitis. On finasteride and tamsulosin. On cefadroxil . 15. Retention Urinary Has history of prostate cancer. Catheter placed 09/28/2022 retention and removed by Urology 10/03/2022. Catheter placed again due to significant incontinence Sepsis associated with catheter 01/10/2023 16. Rhinitis Allergic Has Flonase and cetrizine prn. Past medical/surgical history, social history, medications, and allergies were reviewed and are visible in the Encounter view. Review of systems was performed, as allowable by patient's cognitive status, and incorporating collateral history if applicable. Relevant positives are noted elsewhere in this note, otherwise negative. Eating: Good appetite Diet: Regular diet, regular texture, regular consistency Pain: Forehead Mobility: Assist of 1 to transfer and assist of 1 with 2 wheeled walker for mobility. Skin concerns: Abrasions and bruises on face. Falls at facility: No falls Continue activity: Physical therapy, occupational therapy Behavior/mood concerns: No concerns, known dementia. ADL status: Assist of 1 dressing, assist of 1 grooming, setup assist oral cares. Vision, hearing or dentition concerns. Glasses, samish dentition Bladder: Catheter Bowel: Continent BIMS: 14 PHQ-9: 9 OBJECTIVE BP 128/72 Pulse 69 Temp 36.4 ??C Resp 18 Wt 87.5 kg SpO2 96% Comment: Room air PHYSICAL EXAM GENERAL: Patient is alert and cooperative. Patient is a fair historian. NECK: Without adenopathy. HEART: Regular rate and rhythm. LUNGS: Clear without wheeze crackle or rhonchus. ABDOMEN: Normal bowel sounds. EXTREMITIES: Normal without edema. SKIN: Bruises on face with palpable hematoma on his forehead. ASSESSMENT / PLAN Full background details regarding problems addressed at today's visit can be found in the HPI. Pertinent changes to the care plan based on today's evaluation are explicitly discussed below, otherwiselisted problems are stable and present management will be continued. #1 Injury Head Intracranial Closed With Loss Of Consciousness Subsequent Assessment & Plan: Delayed subdural possible. Monitor for change in mental status. #2 Contusion Face Subsequent Assessment & Plan: No bony injuries. Continue to treat symptomatically. #3 History Of Falling Assessment & Plan: He will work with therapies to minimize fall risk. #4 Hypothyroidism Assessment & Plan: No up-to-date TSH available in Epic. Monitored by primary through [facility] and [facility]. #5 Hypertension And Chronic Kidney Disease Stage 2 #6 Atrial Fibrillation Unspecified #7 Political Aide (Current) Anticoagulant Treatment #8 Pacemaker Cardiac Status Post Assessment & Plan: Due for device check 03/05/2023. #9 Primary Malignant Neoplasm Of Prostate (HCC) Assessment & Plan: Follows with Urology through [facility]. #10 Depression Anxiety Assessment & Plan: Most recent PHQ-9 9. #11 Alcohol Use Unspecified Uncomplicated Assessment & Plan: Unclear when he had his last drink. Alcohol level was 0 on admission to hospital. #12 Hyperlipidemia Mixed #13 Retention Urinary Assessment & Plan: He has had catheter now for several weeks and would like to have a trial of voiding. Prior to trial of voiding, he developed gross hematuria so will hold off for now due to risk of clotting. UA UC pending. #14 Dementia (HCC) Assessment & Plan: Close monitoring. He requires assistance with all cares. #15 Rhinitis Allergic Assessment & Plan: He is also on Advair without COPD or asthma listed as diagnoses. Advair is listed as PRN. Will schedule for appropriate use. #16 Depressive Disorder #17 Gastroesophageal Reflux Disease Without Esophagitis # 18 Disposition Planning This is a planned short-term custodial stay for rehabilitation. Patient plans to return to previous living situation at the completion of therapies. It is likely that he will need increased in-home services versus assisted living versus long-term care. # 19 Correction Stay Justification Exam Current comorbidities, ADL need/level [...] orders, communicating orders to facility. Total time 50 minutes. documented in this encounter Miscellaneous Notes * Assessment & Plan Note - Nohelia De La Cruz M.D. - 02/15/2023 8:58 PM CDTAssociated Problem(s): Primary Malignant Neoplasm Of Prostate (HCC) Follows with Urology through [facility]. * Assessment & Plan Note - Nohelia De La Cruz M.D. - 02/15/2023 8:57 PM CDTAssociated Problem(s): Contusion Face Subsequent (Resolved 02/23/2023) No bony injuries. Continue to treat symptomatically. * Assessment & Plan Note - Nohelia De La Cruz M.D. - 02/15/2023 8:03 PM CDTAssociated Problem(s): Rhinitis Allergic He is also on Advair without COPD or asthma listed as diagnoses. Advair is listed as PRN. Will schedule for appropriate use. * Assessment & Plan Note - Nohelia De La Cruz M.D. - 02/15/2023 8:02 PM CDTAssociated Problem(s): Retention Urinary (Resolved 02/23/2023) He has had catheter now for several weeks and would like to have a trial of voiding. Prior to trial of voiding, he developed gross hematuria so will hold off for now due to risk of clotting. [facility]A UC pending. * Assessment & Plan Note - Nohelia De La Cruz M.D. - 02/15/2023 7:56 PM CDTAssociated Problem(s): Pacemaker Cardiac Status Post Due for device check 03/05/2023. * Assessment & Plan Note - Nohelia De La Cruz M.D. - 02/15/2023 7:46 PM CDTAssociated Problem(s): Injury Head Intracranial Closed With Loss Of Consciousness Subsequent Delayed subdural possible. Monitor for change in mental status. * Assessment & Plan Note - Nohelia De La Cruz M.D. - 02/15/2023 7:42 PM CDTAssociated Problem(s): Hypothyroidism No up-to-date TSH available in [facility]. Monitored by primary through [facility] and [facility]. * Assessment & Plan Note - Nohelia De La Cruz M.D. - 02/15/2023 7:38 PM CDTAssociated Problem(s): History Of Falling He will work with therapies to minimize fall risk. * Assessment & Plan Note - Nohelia De La Cruz M.D. - 02/15/2023 7:37 PM CDTAssociated Problem(s): Depression Anxiety Most recent PHQ-9 9. * Assessment & Plan Note - Nohelia De La Cruz M.D. - 02/15/2023 7:36 PM CDTAssociated Problem(s): Dementia (HCC) Close monitoring. He requires assistance with all cares. * Assessment & Plan Note - Nohelia De La Cruz M.D. - 02/15/2023 7:34 PM CDTAssociated Problem(s): Alcohol Use Unspecified Uncomplicated Unclear when he had his last drink. Alcohol level was 0 on admission to hospital. documented in this encounter Plan of Treatment Not on file documented as of this encounter Visit Diagnoses Diagnosis Injury Head Intracranial Closed With Loss Of Consciousness Subsequent- Primary Contusion Face Subsequent History Of Falling Hypothyroidism Hypertension And Chronic Kidney Disease Stage 2 Atrial Fibrillation Unspecified (HCC) Political Aide (Current) Anticoagulant Treatment Pacemaker Cardiac Status Post Primary Malignant Neoplasm Of Prostate (HCC) Depression Anxiety Alcohol Use Unspecified Uncomplicated Hyperlipidemia Mixed Retention Urinary Dementia (HCC) Rhinitis Allergic Depressive Disorder Gastroesophageal Reflux Disease Without Esophagitis documented in this encounter Care Teams Accounting Software Specialist Relationship Specialty Start Date End Date Rick Sotelo C.N.P., M.S.N. [address] [place] [phone] PCP - General Internal Medicine 01/27/23 02/23/23 documented as of this encounter
--- OUTSIDE RECORDS SUMMARY | 2023-11-30 11:18 | XMS_ITS | Encounter Summary ---
Author Name Unknown Organization [place] Address [facility] [place] [address] Care Team Providers Care Tire Buffer Name Role Phone Carlos Alberto Corral MD Primary Care Provider [phone] Maikel Brock Primary Care Provider [phone] Norma Cortez PA-C Unavailable [phone] Henry Vidal MD Unavailable [phone] Encounter Details Date Type Department Care Team (Late st Contact Info) Description 03/10/2014 Office Visit-[facility] Page [address] [facility] [address] [place] [phone] Tyrell Jarvis MD [address] [facility] [address] [place], [place] [address] Social History Tobacco Use Types Packs/Day Years Used Date Smoking Tobacco: Former Cigarettes Q uit: 11/02/1995 Smokeless Tobacco: Never Alcohol Use Standard Drinks/Week Comments Yes 0 (1 standard drink = 0.6 oz pur e alcohol) Sex and Gender Information Value Date Recorded Sex Assigned at Not on file Gender Identity Not on file Sexual Orientation Not on file documented as of this encounter Progress Notes * Tyrell Jarvis MD - 03/14/2014 12:32 PM CDT Progress Note Created by: Tyrell Jarvis M.D. [id number] DATE: 03/10/2014 REBEKAH XIONG DATE OF : 1940 AGE: [age] years old Referring Physician: CARLOS ALBERTO CORRAL Referring Clinic: [facility] CURRENT DIAGNOSES 1. - SVT [...] was in the ER a couple of yearsago for new onset of palpitations due to SVT that was adenosine sensitive. Unfortunately, I do not have the EKG from that time for review. The patient subsequently did have a stress test done at thattime as part of the evaluation and it was unremarkable. Recently he had an episode of palpitations but less intense compared to a couple of years ago. By the time he went to the ER it had subsided already. He subsequently saw my partner, Dr. Parks, who had him on metoprolol. The patient also was recommended to wear a 24-hour Holter monitoring. The patient was just taking beta-dwain at that time.The Holter demonstrated occasional PACs and some PVCs, [...] examination was unremarkable. Baseline EKG demonstrated sinus rhythmwithout any evidence of ventricular preexcitation. PAST HISTORY [...] delightful 73-year-old gentleman with a history of PSVTwith two episodes over the past couple of [...] Valsalva maneuvers for the patient as well. Hewill continue to follow with Dr. Parks and see me should arrhythmia issues arise in the future. TODAYS ORDERS Tyrell Jarvis M.D. documented in this encounter Plan of Treatment Not on file documented as of this encounter Visit Diagnoses Not on filedocumented in this encounter Care Teams Tire Buffer Relationship Specialty Start Date End Date Carlos Alberto Corral MD PCP - General Internal Medicine 10/15/12 09/18/17 Maikel Brock [address] [place] [address] PCP - General Family Practice 09/19/17 Norma Cortez PA-C [address] [facility] [address] [place] [address] Physician [facility] 10/03/22 Henry Vidal MD [address] [facility] [address] [place] [address] Assigned Surgical Provider 11/08/22 documented as of this encounter
--- OUTSIDE RECORDS SUMMARY | 2023-11-30 11:18 | XMS_ITS | Encounter Summary ---
Author Name Unknown Organization [facility] Address [address] [place] [address] Care Team Providers Care Medical Record Clerk Name Role Phone Rick Sotelo C.N.PYu, M.S.N. Primary Care Pr ovid Reason for Visit * Appointment Request (Routine) - Closed Specialty Diagnoses / Procedures Referred By Eri jay Referred To Contact Jail Facility Referral ID Status Reason Start Date Expiration Date Visits Re quested Visits Authorized [id number] Closed 01/28/2023 01/28/2024 1 1 Encounter Details Date Type Department Care Team (Latest Contact Info) Description 01/29/2023 3:00 PM CDT External Outreach [facility] in [facility] [id number] [address] Marj Tang APRN, C.N.P. 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; Rhinitis Allergic; Decline Cognitive; Depression Anxiety; Gastroesophageal Reflux Disease Without Esophagitis; Pacemaker Cardiac Status Post; Sick Sinus Syndrome (HCC) Social History Tobacco Use Types Packs/Day Years [...] Sign Reading Time Taken Comments Blood Pressure 110/71 01/29/2023 11:06 AM CDT Pulse 68 01/29/2023 11:06 AM CDT Temperature 36.8 ??C (98.2 ??F) 01/29/2023 11:06 AM C DT Respiratory Rate 16 01/29/2023 11:06 AM CDT Oxygen Saturation 94% 01/29/2023 11:06 AM CDT Inhaled Oxygen Concentration - - Weight 87 kg (191 lb 12.8 oz) 01/29/2023 11:06 A M CDT Height - - Body Mass Index - - documented in this encounter Patient Instructions * Patient Instructions* Marj Tang V., EDMUNDO, C.N.P. - 01/29/2023 3:00 PM CDT : 1940 ORDERS and INSTRUCTIONS: Admit/Medication Reconciliation Visit done. Medications below were added to Epic record. No new orders There are no discontinued medications. Orders Placed This Encounter amLODIPine (NORVASC) 10 mg tablet Sig: Take 1 tablet (10 mg total) by mouth daily. Dispense: 90 tablet Refill: 3 atorvastatin (LIPITOR) 40 mg tablet Sig: Take 1 tablet (40 mg total) by mouth daily. Dispense: 30 tablet Refill: 5 cefadroxil (DURICEF) 500 mg capsule Sig: Take 2 capsules (1,000 mg total) by mouth 2 (two) times a day. Dispense: 120 capsule Refill: 11 finasteride (PROSCAR) 5 mg tablet Sig: Take 1 tablet (5 mg total) by mouth daily. Dispense: 30 tablet Refill: 11 FLUoxetine (PROzac) 40 mg capsule Sig: Take 1 capsule (40 mg total) by mouth daily. Dispense: 90 capsule Refill: 3 levothyroxine (SYNTHROID, LEVOTHROID) 200 mcg tablet Sig: Take 1 tablet (200 mcg total) by mouth daily. Dispense: 90 tablet Refill: 3 omeprazole (PriLOSEC OTC) 20 mg EC tablet Sig: Take 1 tablet (20 mg total) by mouth daily. Dispense: 90 tablet Refill: 3 sotaloL (BETAPACE) 80 mg tablet Sig: Take 1 tablet (80 mg total) by mouth 2 (two) times a day. Dispense: 180 tablet Refill: 3 tamsulosin (FLOMAX) 0.4 mg 24 hr capsule Sig: Take 1 capsule (0.4 mg total) by mouth daily. Dispense: 90 capsule Refill: 3 rivaroxaban (XARELTO) 20 mg tablet Sig: Take 1 tablet (20 mg total) by mouth daily with dinner. Dispense: 90 tablet Refill: 3 acetaminophen (TYLENOL) 500 mg tablet Sig: Take 2 tablets (1,000 mg total) by mouth every 6 (six) hours as needed for pain. Dispense: 90 tablet Refill: 3 fluticasone propion-salmeteroL (Advair Diskus) 250-50 mcg/dose diskus inhaler Sig: Inhale 1 puff daily as needed (sob). Rinse mouth with water after use to reduce aftertaste andincidence of candidiasis. Do not swallow. Dispense: 60 each Refill: 11 EPINEPHrine (EpiPen) 0.3 mg/0.3 mL injection syringe Sig: Inject 0.3 mL (0.3 mg total) intramuscularly as needed for anaphylaxis. Inject into the thigh. Dispense: 1 each Refill: 5 fluticasone propionate (FLONASE) 50 mcg/actuation nasal spray Sig: Administer 1 spray into each nostril daily as needed for rhinitis or allergies. Dispense: 16 g Refill: 5 aluminum hydrox-magnesium carb (Gaviscon) 95-358 mg/15 mL suspension Sig: Take 15 mL by mouth 2 (two) times a day as needed for indigestion. Dispense: 335 mL Refill: 11 hydrocortisone (CORTAID) 1 % cream Sig: Apply 1 application topically 4 (four) times a day as needed for irritation. Apply to itchy areas Dispense: 30 g Refill: 0 cetirizine (ZyrTEC) 10 mg tablet Sig: Take 1 tablet (10 mg total) by mouth daily as needed for allergies. Dispense: 30 tablet Refill: 5 Electronically signed by: Marj Tang APRN, C.N.P. 01/30/23 7:22 PM CDT documented in this encounter H&P Notes * Marj Tang APRN, C.N.Chandra. - 01/29/2023 3:00 PM CDT CHIEF COMPLAINT / REASON FOR VISIT [facility] Admission Visit Visit Type: In Person: Face to Face SUBJECTIVE HISTORY OF PRESENT ILLNESS Today's narrative history (obtained from Patient and Nursing) and Hospital Records: From Hospital Record: Mr. Abraham Mancuso is a 82 y.o. male with a history of hypertension, hypercholesterolemia, hypothyroidism, obesity, vasovagal syncope, atrial fibrillation, prostate cancer, alcohol abuse, dementia,and anxiety who presents post fall. Patient says he was going out to retrieve a garbage can, when he got to the back of his car he stumbled over a lip in the concrete garage floor and fell landing onhis forehead. He says he did not have his cane with him. He was able to retrieve the cell phone andcalled 911 by himself. He is pretty sure he had a loss of consciousness, he does not know for how long. Patient denies chest pain, shortness of breath, palpitations, nausea or vomiting. The following medical problems were actively reviewed (including updating overview sections as necessary) and addressed as part of today's visit: #1 Primary Malignant Neoplasm Of Prostate (HCC) Overview: EXT PSA Tumor Marker 0.00 - 4.00 ug/L <0.04 Resulting Agency [facility] Specimen Collected: 10/30/22 10:[address] [employer] Last Resulted: 10/30/22 10:[address] [employer] Denny Catheter, urinary retention hx of cystitis. On finasteride and tamsulosin. On cefadroxil . 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 Started drinking 5-6 glasses of wine . #3 Syncope Vasovagal Overview: Orthostatic hypotension #4 Atrial Fibrillation Unspecified Overview: Atrial fibrillation on sotalol and custodial anticoagulation with Xarelto 20 mg. #5 Hyperlipidemia Mixed Overview: Hyperlipidemia mixed on atorvastatin 40 mg #6 Hypothyroidism Overview: On levothyroxine 200 mcg daily #7 Hypertension Essential Primary Overview: Status: Final result Next appt: 02/02/2023 at 03:00 PM [facility] (Nohelia De La Cruz M.D.) Component Ref Range & Units 4 d ago (01/26/23) 4 mo ago (10/02/22) 4 mo ago (10/01/22) 4 mo ago (10/01/22) 4 mo ago (10/01/22) 4 mo ago (09/30/22) 4 mo ago (09/29/22) EXT Sodium, S 135 - 145 mmol/L 139 134 Low EXT Potassium, S 3.5 - 5.0 mmol/L 4.1 3.6 3.3 Low 3.1 Low 3.6 3.6 EXT Chloride, S 98 - 110 mmol/L 105 104 EXT Total Carbon Dioxide, P 21 - 31 mmol/L 23 21 EXT Anion Gap 5 - 18 11 9 EXT Glucose 70 - 99 mg/dL 133 High 93 R EXT Calcium, Total, S 8.5 - 10.5 mg/dL 8.9 7.5 Low EXT BUN (Blood Urea Nitrogen), S/P 8 - 25 mg/dL 13 12 EXT Creatinine, S 0.72 - 1.25 mg/dL 0.86 0.74 0.78 EXT BUN/CREAT RATIO 10 - 20 15 15 EXT eGFR >90 mL/min/1.73m2 86 Low 90 Low CM 89 Low CM Comment: As of 2022, eGFR is calculated by the CKD-EPI creatinine equation without race adjustment. eGFR can be influenced by muscle mass, exercise, and diet. The reported eGFR is an estimationonly and is only applicable if the renal function is stable. 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 He says he did not have his cane with him. He was able to retrieve the cell phone and called 911 by himself. He is pretty sure he had a loss of consciousness, he does not know for how long. Patient denies chest pain, shortness of breath, palpitations, nausea or vomiting. #9 Rhinitis Allergic Overview: Has Flonase and cetrizine prn. #10 Decline Cognitive Overview: Dementia per Hospital record #11 Depression Anxiety Overview: Takes Fluoxetine 40 mg daily #12 Gastroesophageal Reflux Disease Without Esophagitis Overview: On omeprazole 20 mg daily with prn Gaviscon Past medical/surgical history, social history, medications, and allergies were reviewed and are visible in the Encounter view. Review of systems was performed, as allowable by patient's cognitive status, and incorporating collateral history if applicable. Relevant positives are noted elsewhere in this note, otherwise negative. OBJECTIVE BP 110/71 Pulse 68 Temp 36.8 ??C Resp 16 Wt 87 kg SpO2 94% PHYSICAL EXAM Vitals and nursing note reviewed. Constitutional Appearance: Normal appearance. HENT Head: Comments: Large right fronts hematoma Right Ear: External ear normal. Left Ear: External ear normal. Nose: Nose normal. Mouth/Throat: Mouth: Mucous membranes are dry. Pharynx: Oropharynx is clear. Eyes Comments: Right sclera erythema, bilateral miguel a eyes Cardiovascular Rate and Rhythm: Normal rate and regular rhythm. Pulses: Normal pulses. Heart sounds: Normal heart sounds. Pulmonary Effort: Pulmonary effort is normal. Breath sounds: Normal breath sounds. Abdominal General: Bowel sounds are normal. Palpations: Abdomen is soft. Musculoskeletal General: Normal range of motion. Skin General: Skin [...] and present management will be continued. #1 Primary Malignant Neoplasm Of Prostate (HCC) Assessment & Plan: Nursing mahad will attempt to remove the denny next week. #2 Alcohol Mild Use Disorder (Abuse) In Remission Assessment & Plan: Hospital record states he does not know when or why he started drinking again. #3 Syncope Vasovagal Assessment & Plan: He is having some low blood pressures. No symptoms. #4 Atrial Fibrillation Unspecified #5 Hyperlipidemia Mixed Assessment & Plan: Continue statin #6 Hypothyroidism Assessment & Plan: Continue current dose. #7 Hypertension Essential Primary Assessment & Plan: On amlodipine 10 mg daily. No leg edema. 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 Denies headache or neck pain. The hematoma is large and it is difficult to keep a Mepilex in place. Antibiotic ointment will be applied and no dressing will be applied. It is very painful when the area is touched. Therapy will do cognitive evaluation per senior care protocol. #9 Rhinitis Allergic Assessment & Plan: Asymptomatic presently #10 Decline Cognitive Assessment & Plan: Therapy will evaluate him in the senior care setting. #11 Depression Anxiety Assessment & Plan: He will have a PHQ 9 administered in the senior care setting. #12 Gastroesophageal Reflux Disease Without Esophagitis Assessment & Plan: Asymptomatic on medictions. Other orders - amLODIPine (NORVASC) 10 mg tablet; Take 1 tablet (10 mg total) by mouth daily., Starting Thu01/30/2023, Until 01/25/2024, No Print - atorvastatin (LIPITOR) 40 mg tablet; Take 1 tablet (40 mg total) by mouth daily., Starting Thu01/30/2023, No Print - cefadroxil (DURICEF) 500 mg capsule; Take 2 capsules (1,000 mg total) by mouth 2 (two) times a day., Starting Thu01/30/2023, Until 01/30/2024, No Print - finasteride (PROSCAR) 5 mg tablet; Take 1 tablet (5 mg total) by mouth daily., Starting Thu01/30/2023, No Print - FLUoxetine (PROzac) 40 mg capsule; Take 1 capsule (40 mg total) by mouth daily., Starting Thu01/30/2023, Until 01/30/2024, No Print - levothyroxine (SYNTHROID, LEVOTHROID) 200 mcg tablet; Take 1 tablet (200 mcg total) by mouth daily., Starting Thu01/30/2023, Until 01/30/2024, No Print - omeprazole (PriLOSEC OTC) 20 mg EC tablet; Take 1 tablet (20 mg total) by mouth daily., Starting Thu01/30/2023, Until 01/30/2024, No Print - sotaloL (BETAPACE) 80 mg tablet; Take 1 tablet (80 mg total) by mouth 2 (two) times a day., Starting Thu01/30/2023, Until 01/30/2024, No Print - tamsulosin (FLOMAX) 0.4 mg 24 hr capsule; Take 1 capsule (0.4 mg total) by mouth daily., StartingThu01/30/2023, Until 01/30/2024, No Print - rivaroxaban (XARELTO) 20 mg tablet; Take 1 tablet (20 mg total) by mouth daily with dinner., Starting Thu01/30/2023, Until 01/30/2024, No Print - acetaminophen (TYLENOL) 500 mg tablet; Take 2 tablets (1,000 mg total) by mouth every 6 (six) hours as needed for pain., Starting Thu01/30/2023, Until 01/30/2024 at 2359, No Print - fluticasone propion-salmeteroL (Advair Diskus) 250-50 mcg/dose diskus inhaler; Inhale 1 puff daily as needed (sob). Rinse mouth with water after use to reduce aftertaste and incidence of candidiasis. Do not swallow., Starting Thu01/30/2023, No Print - EPINEPHrine (EpiPen) 0.3 mg/0.3 mL injection syringe; Inject 0.3 mL (0.3 mg total) intramuscularly as needed for anaphylaxis. Inject into the thigh., Starting Thu01/30/2023, No Print - fluticasone propionate (FLONASE) 50 mcg/actuation nasal spray; Administer 1 spray into each nostril daily as needed for rhinitis or allergies., Starting Thu01/30/2023, No Print - aluminum hydrox-magnesium carb (Gaviscon) 95-358 mg/15 mL suspension; Take 15 mL by mouth 2 (two)times a day as needed for indigestion., Starting Thu01/30/2023, Until 01/30/2024 at 2359, No Print - hydrocortisone (CORTAID) 1 % cream; Apply 1 application topically 4 (four) times a day as needed for irritation. Apply to itchy areas, Starting Thu01/30/2023, Until 01/30/2024 at 2359, No Print - cetirizine (ZyrTEC) 10 mg tablet; Take 1 tablet (10 mg total) by mouth daily as needed for allergies., Starting 01/30/2023, No Print PATIENT EDUCATION Ready to learn, no apparent [...] orders, communicating orders to facility. Total time 90 minutes. documented in this encounter Miscellaneous Notes * Assessment & Plan Note - Marj Tang APRN, C.N.P. - 01/30/2023 7:20 PM CDTAssociated Problem(s): Sick Sinus Syndrome (HCC) (Resolved 02/23/2023) Bedside monitor * Assessment & Plan Note - Marj Tang APRN, C.N.P. - 01/30/2023 6:55 PM CDTAssociated Problem(s): Gastroesophageal Reflux Disease Without Esophagitis Asymptomatic on medictions. * Assessment & Plan Note - Marj Tang APRN, C.N.P. - 01/30/2023 6:53 PM CDTAssociated Problem(s): Depression Anxiety He will have a PHQ 9 administered in the senior care setting. * Assessment & Plan Note - Marj Tang APRN, C.N.P. - 01/30/2023 6:51 PM CDTAssociated Problem(s): Decline Cognitive (Resolved 03/29/2023) Therapy will evaluate him in the senior care setting. * Assessment & Plan Note - Marj Tang APRN, C.N.P. - 01/30/2023 6:42 PM CDTAssociated Problem(s): Rhinitis Allergic Asymptomatic presently * Assessment & Plan Note - Marj Tang APRN, C.N.P. 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 Denies headache or neck pain. The hematoma is large and it is difficult to keep a Mepilex in place. Antibiotic ointment will be applied and no dressing will be applied. It is very painful when the area is touched. Therapy will do cognitive evaluation per senior care protocol. * Assessment & Plan Note - Marj Tang APRN, C.N.P. - 01/30/2023 6:14 PM CDTAssociated Problem(s): Hypertension Essential Primary (Resolved 02/15/2023) On amlodipine 10 mg daily. No leg edema. * Assessment & Plan Note - Marj Tang APRN, C.N.P. - 01/30/2023 6:09 PM CDTAssociated Problem(s): Hypothyroidism Continue current dose. * Assessment & Plan Note - Marj Tang APRN, C.N.P. - 01/30/2023 6:08 PM CDTAssociated Problem(s): Hyperlipidemia Mixed Continue statin * Assessment & Plan Note - Marj Tang APRN, C.N.P. - 01/30/2023 6:04 PM CDTAssociated Problem(s): Syncope Vasovagal (Resolved 02/23/2023) He is having some low blood pressures. No symptoms. * Assessment & Plan Note - Marj Tang APRN, C.N.P. - 01/30/2023 6:02 PM CDTAssociated Problem(s): Alcohol Mild Use Disorder (Abuse) In Remission (Resolved 02/23/2023) Hospital record states he does not know when or why he started drinking again. * Assessment & Plan Note - aMrj Tang APRN, C.N.P. - 01/30/2023 6:00 PM CDTAssociated Problem(s): Primary Malignant Neoplasm Of Prostate (HCC) Nursing mahad will attempt to remove the denny next week. 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 [address] [place] [phone] PCP - General Internal Medicine 01/27/23 02/23/23 documented as of this encounter
--- OUTSIDE RECORDS SUMMARY | 2023-11-30 11:18 | XMS_ITS | Encounter Summary ---
Author Name Unknown Organization [facility] Address [address] [place] [address] Care Team Providers Care Dress Finisher Name Role Phone Rick Sotelo C.N.PYu, M.S.N. Primary Care Pr ovid Reason for Visit * Appointment Request (Routine) - Closed Specialty Diagnoses / Procedures Referred By Eri jay Referred To Contact Retirement Facility Referral ID Status Reason Start Date Expiration Date Visits Re quested Visits Authorized [id number] Closed 02/19/2023 02/19/2024 1 1 Encounter Details Date Type Department Care Team (Latest Contact Info) Description 02/23/2023 3:00 PM CDT External Outreach Senior Services in [facility] [address] [address] Marj Tang APRN, C.N.P. 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; Primary Malignant Neoplasm Of Prostate (HCC); Constipation Slow Transit; Rhinitis Allergic Social History Tobacco Use Types Packs/Day Years [...] Sign Reading Time Taken Comments Blood Pressure 134/81 02/23/2023 9:26 AM CDT Pulse 60 02/23/2023 9:26 AM CDT Temperature 36.9 ??C (98.4 ??F) 02/23/2023 9:26 AM CD T Respiratory Rate 18 02/23/2023 9:26 AM CDT Oxygen Saturation 98% 02/23/2023 9:26 AM CDT Inhaled Oxygen Concentration - - Weight 87.8 kg (193 lb 9.6 oz) 02/23/2023 9:26 A M CDT Height - - Body Mass Index - - documented in this encounter Patient Instructions * Patient Instructions* Marj Tang APRN, C.N.P. - 02/23/2023 3:00 PM CDT : 1940 ORDERS and INSTRUCTIONS: Discharge Face to Face Visit Done There are no discontinued medications. Orders Placed This Encounter DME Walker; Front wheeled walker (FWW); Standard front wheeled walker Order Specific Question: Type: Answer: Front wheeled walker (FWW) Order Specific Question: Front wheeled walker type: Answer: Standard front wheeled walker Order Specific Question: Initial date of need: Answer: 02/23/2023 Order Specific Question: Duration of need: Answer: Lifetime DME Medical Justification: Walker DME Medical Justification: Walker Abraham Mancuso has a mobility limitation that sufficiently impairs his ability to participate in mobility-related activities of daily living in the home. A cane and crutch have been ruled out. The mobility limitation can be sufficiently resolved by the prescription of this walker. He can safely use the walker. More than one ambulation aid is not needed. Most recent height: No data found for Ht Most recent weight: 02/23/23 : 87.8 kg Electronically signed by: Marj Tang APRN, C.N.P. 02/23/23 3:38 PM CDT documented in this encounter Progress Notes * Marj Tnag V. EDMUNDO, C.N.P. - 02/23/2023 3:00 PM CDT CHIEF COMPLAINT / REASON FOR VISIT [facility] Discharge Visit Visit Type: In Person: Face to Face SUBJECTIVE HISTORY OF PRESENT ILLNESS Today's narrative history (obtained from Patient and Nursing): Abraham Mancuso is a 82 y.o. male who underwent rehab at [facility] from 01/28/23 to 02/24/23, after being hospitalized at [facility] from 01/26/23 to 01/28/23 for fall at home with loss of consciousness and facial injuries. He has completed therapy in the snf and is ready for discharge to home.He will need a front wheeled walker due to falling. The following medical problems were actively reviewed (including updating overview sections as necessary) and addressed as part of today's visit: Diagnosis Overview 1. Hyperlipidemia Mixed Hyperlipidemia mixed on atorvastatin 40 mg 2. Hypothyroidism On levothyroxine 200 mcg daily 3. Atrial Fibrillation Unspecified Atrial fibrillation on sotalol and watermelon inspector anticoagulation with Xarelto 20 mg. 4. Primary Malignant Neoplasm Of Prostate (HCC) EXT PSA Tumor Marker 0.00 - 4.00 ug/L <0.04 Resulting Agency [facility] Denny Catheter, urinary retention hx of cystitis. On finasteride and tamsulosin. On cefadroxil . 5. Injury Head Intracranial Closed With Loss [...] the 2019 exam. 6. Rhinitis Allergic Has Flonase and cetrizine prn. 7. Depression Anxiety Takes Fluoxetine 80 mg daily 8. Gastroesophageal Reflux Disease Without Esophagitis On omeprazole 20 mg daily with prn Gaviscon 9. 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 Followed by Dr. Oscar Miner through [facility]. 10. History Of Falling - Primary Multiple falls at home. Likely multifactorial including advanced age, deconditioning, sensory deficits, and alcohol use. 11. Alcohol Use Unspecified Uncomplicated He has been drinking on a daily basis for an unknown period of time. 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 12. Dementia (HCC) Likely multifactorial including alcohol. Has required assistance from daughter. Sundowning present. 13. Constipation Slow Transit Slow transit on Senna S as needed. Past medical/surgical history, social history, medications, and allergies were reviewed and are visible in the Encounter view. Review of systems was performed, as allowable by patient's cognitive status, and incorporating collateral history if applicable. Relevant positives are noted elsewhere in this note, otherwise negative. OBJECTIVE BP 134/81 Pulse 60 Temp 36.9 ??C Resp 18 Wt 87.8 kg SpO2 98% PHYSICAL EXAM Constitutional Appearance: Normal appearance. HENT Head: Normocephalic. Comments: He still has a scab on his forehead Right Ear: External ear normal. Left Ear: External ear normal. Nose: Nose normal. Mouth/Throat: Pharynx: Oropharynx is clear. Eyes Conjunctiva/sclera: Conjunctivae [...] and present management will be continued. #1 Dementia (HCC) Assessment & Plan: He has no behaviors at present. He will follow up with PCP after discharge. #2 History Of Falling Assessment & Plan: He will need a front wheeled walker. #3 Hypothyroidism Assessment & Plan: Thyroid studies will be monitored by PCP. #4 Atrial Fibrillation Unspecified Assessment & Plan: Rate controlled on sotalol. Continue Xarelto for fdc anticaogulation. #5 Hyperlipidemia Mixed Assessment & Plan: Continue atorvastatin 40 mg daily #6 Alcohol Use Unspecified Uncomplicated Assessment & Plan: He reports 12 years of sobriety now drinks 5-6 glasses of wine daily per his report. #7 Pacemaker Cardiac Status Post Assessment & Plan: Next device interrogation is 03/05/23 #8 Depression Anxiety Assessment & Plan: Continue fluoxetine 80 mg daily #9 Gastroesophageal Reflux Disease Without Esophagitis Assessment & Plan: Remains asymptomatic on current medications. PCP will monitor serum magnesium after discharge. #10 Injury Head Intracranial Closed With Loss Of Consciousness Subsequent Assessment & Plan: He has a scab mid forehead. No headaches or visual changes.Normal blood pressures. #11 Primary Malignant Neoplasm Of Prostate (HCC) Assessment & Plan: He no longer has the denny catheter. He is voiding well. Continue finasteride 5 mg daily and tamsulosin 0.8 mg daily. Follow up with urology in [place]. #12 Constipation Slow Transit #13 Rhinitis Allergic Assessment & Plan: Continue current medications. Other orders - DME Walker; Front wheeled walker (FWW); Standard front wheeled walker - DME Medical Justification: Walker # 14 Advanced Directive : DNR/DNI #15 Disposition Follow up: With PCP in 30 days Discharge Order: Abraham Mancuso will discharge to home without home care on 02/24/23 therapy goals are met. Medications ordered: 30 days Scheduled Appointments 02/23/2023 3:00 PM Marj Tang APRN, C.N.P.; [facility] [address] [place] [address] Internal Medicine For appointment details refer to your Patient Appointment Guide. PATIENT EDUCATION Patient is cognitively impaired. Explained diagnosis and treatment plan; caregiver expressed understanding of the content. BILLING Billing based on: Time, including the following tasks: reviewing the electronic medical record, updating the EPIC Problem List, reviewing written facility- provided information, reviewing information in facility EMR, medication reconciliation, obtaining collateral history from facility staff, Interviewing and examining the patient, placing orders, communicating orders to facility. Total time 40 minutes. documented in this encounter Miscellaneous Notes * Assessment & Plan Note - Marj Tang APRN, C.N.P. - 02/23/2023 3:31 PM CDTAssociated Problem(s): Rhinitis Allergic Continue current medications. * Assessment & Plan Note - Marj Tang APRN, C.N.P. - 02/23/2023 3:26 PM CDTAssociated Problem(s): Primary Malignant Neoplasm Of Prostate (HCC) He no longer has the denny catheter. He is voiding well. Continue finasteride 5 mg daily and tamsulosin 0.8 mg daily. Follow up with urology in [place]. * Assessment & Plan Note - Marj Tang APRN, C.N.P. - 02/23/2023 3:16 PM CDTAssociated Problem(s): Injury Head Intracranial Closed With Loss Of Consciousness Subsequent He has a scab mid forehead. No headaches or visual changes.Normal blood pressures. * Assessment & Plan Note - Marj Tang APRN, C.N.P. - 02/23/2023 3:15 PM CDTAssociated Problem(s): Gastroesophageal Reflux Disease Without Esophagitis Remains asymptomatic on current medications. PCP will monitor serum magnesium after discharge. * Assessment & Plan Note - Marj Tang APRN, C.N.P. - 02/23/2023 3:14 PM CDTAssociated Problem(s): Depression Anxiety Continue fluoxetine 80 mg daily * Assessment & Plan Note - Marj Tang APRN, C.N.P. - 02/23/2023 3:12 PM CDTAssociated Problem(s): Dementia (HCC) He has no behaviors at present. He will follow up with PCP after discharge. * Assessment & Plan Note - Marj Tang APRN, C.N.P. - 02/23/2023 3:11 PM CDTAssociated Problem(s): Pacemaker Cardiac Status Post Next device interrogation is 03/05/23 * Assessment & Plan Note - Marj Tang APRN, C.N.P. - 02/23/2023 3:10 PM CDTAssociated Problem(s): Alcohol Use Unspecified Uncomplicated He reports 12 years of sobriety now drinks 5-6 glasses of wine daily per his report. * Assessment & Plan Note - Marj Tang APRN, C.N.P. - 02/23/2023 3:09 PM CDTAssociated Problem(s): Hyperlipidemia Mixed Continue atorvastatin 40 mg daily * Assessment & Plan Note - Marj Tang APRN, C.N.P. - 02/23/2023 3:07 PM CDTAssociated Problem(s): Atrial Fibrillation Paroxysmal (HCC) Rate controlled on sotalol. Continue Xarelto for watermelon inspector anticaogulation. * Assessment & Plan Note - Marj Tang APRN C.N.P. - 02/23/2023 3:07 PM CDTAssociated Problem(s): Hypothyroidism Thyroid studies will be monitored by PCP. * Assessment & Plan Note - Marj Tang APRN, C.N.P. - 02/23/2023 3:04 PM CDTAssociated Problem(s): History Of Falling He will need a front wheeled walker. documented in this encounter Plan of Treatment Not on file documented as of this encounter Visit Diagnoses Diagnosis History Of Falling- Primary Dementia (HCC) Hypothyroidism Atrial Fibrillation Unspecified (HCC) Hyperlipidemia Mixed Alcohol Use Unspecified Uncomplicated Pacemaker Cardiac Status Post Depression Anxiety Gastroesophageal Reflux Disease Without Esophagitis Injury Head Intracranial Closed With Loss Of Consciousness Subsequent Primary Malignant Neoplasm Of Prostate (HCC) Constipation Slow Transit Rhinitis Allergic documented in this encounter Care Teams Dress Finisher Relationship Specialty Start Date End Date Rick Sotelo C.NAn, M.S.N. [address] [place] [phone] PCP - General Internal Medicine 01/27/23 02/23/23 documented as of this encounter
--- OUTSIDE RECORDS SUMMARY | 2023-11-30 11:18 | XMS_ITS | Encounter Summary ---
Author Name Unknown Organization [place] Address [facility] [place] [address] Care Team Providers Care Checker Name Role Phone Maikel Brock Primary Care Provider [phone] Norma Cortez PA-C Unavailable [phone] Henry Vidal MD Unavailable [phone] Reason for Visit * Reason Onset Date Comments Appointment 10/03/2022 Cath removal Encounter Details Date Type Department Care Team (Late st Contact Info) Description 10/03/2022 Telephone [facility] [address] [place] [address] Henry Vidal MD [address] [facility] [address] [place], [place] [id number] Appointment (Cath removal ) Social History Tobacco Use Types Packs/Day Years Used Date Smoking Tobacco: Former Cigarettes Q uit: 11/02/1995 Smokeless Tobacco: Never Alcohol Use Standard Drinks/Week Comments Yes 28 (1 standard drink = 0.6 oz pu re alcohol) Sex and Gender Information Value Date Recorded Sex Assigned at Not on file Gender Identity Not on file Sexual Orientation Not on file COVID-19 Exposure Response Date Recorded In the last 10 days, have yo u been in contact with someone who was confirmed or suspected to have Coronavirus/COVID-19? Unable to assess 10/03/2022 1:09 PM HOUSE MANAGER documented as of this encounter Miscellaneous Notes * Telephone Encounter - Lia Kelsey - 10/07/2022 2:06 PM CST Pt daughter thought she got a call from Brianna to call to set up appt. No notes in chart. Please callpt to daughter, see prev notes. Thank you E MANAGER * Telephone Encounter - Chelly Barrett - 10/03/2022 3:45 PM CST Patient's daughter called again to get appointment scheduled. She said the hospital called to set up an appointment and scheduled him for December but paperwork says within 10 days. Please call daughterback to schedule. Thank you. E MANAGER * Telephone Encounter - Olga Brumfield - 10/03/2022 10:36 AM CST [facility] Call Center Phone Message May a detailed message be left on voicemail: yes Reason for Call: Appointment Intake Referring Provider Name: [facility] Diagnosis and/or Symptoms: sepsis- gross hematuria- hx of prostate cancer pts daughter Jalil is calling- pt is currently in the ED, and is needing an urgent appt to remove his cath within 1 week, please call pts daughter jalil, thank you Action Taken: Message routed to: Other: uro Travel Screening: Not Applicable E MANAGER documented in this encounter Plan of Treatment Not on file documented as of this encounter Visit Diagnoses Not on filedocumented in this encounter Care Teams Checker Relationship Specialty Start Date End Date Maikel Brock [address] [place] [address] PCP - General Family Practice 09/19/17 Norma Cortez PA-C [address] [address] Physician Oracle Erp Developer Urology 10/03/22 Henry Vidal MD [address] [facility] [address] [place] [address] Assigned Surgical Provider 11/08/22 documented as of this encounter
--- OUTSIDE RECORDS SUMMARY | 2023-11-30 11:18 | XMS_ITS | Encounter Summary ---
Author Name Unknown Organization [facility] Address [address] [place] [address] Care Team Providers Care Project Management Engineer Name Role Phone Rick Sotelo C.N.P., M.S.N. Primary Care Pr ovider Encounter Details Date Type Department Care Team (Late st Contact Info) Description 02/01/2023 Clinical Communication Senior Services in [facility] [address] [place] [phone] Nohelia Patel M.D. [address] [place] [phone] Social History Tobacco Use Types Packs/Day Years [...] encounter Miscellaneous Notes * Telephone Encounter - Nohelia De La Cruz M.D. - 02/01/2023 7:31 PM CDT I was called today with 2 concerns. This patient has gross hematuria in catheter bag. No other symptoms referable to urinary tract. UA UC ordered. He also has gone several days without a bowel movement and is uncomfortable. He has been given senna, suppository, enema earlier today without results. I sent the following orders: 1. UA/UC 2. Repeat enema now 3. Senna S 2 tabs b.i.d. 4. Call if no results and remains uncomfortable ORDERS and INSTRUCTIONS: Orders Placed This Encounter Bacterial Culture, Aerobic + Susc, Urine Order Specific Question: Specimen Src: Answer: Urine, Indwelling Catheter [1306] Order Specific Question: Indication: Answer: Other, specify in comment Order Specific Question: Other Indication: Answer: Hematuria Order Specific Question: Region: Answer: [facility] [[id number]] Urinalysis with Microscopic: Urine, Indwelling Catheter Order Specific Question: Region: Answer: [facility] [[id number]] sennosides-docusate sodium (SENOKOT-S) 8.6-50 mg per tablet Sig: Take 2 tablets by mouth 2 (two) times a day. Electronically signed by: Nohelia De La Cruz M.D. 02/01/23 7:34 PM CDT documented in this encounter Plan of Treatment Not on file documented as of this encounter Visit Diagnoses Diagnosis Hematuria- Primary Constipation Slow Transit documented in this encounter Care Teams Project Management Engineer Relationship Specialty Start Date End Date Rick Sotelo C.N.P., M.S.N. [address] [place] [phone] PCP - General Internal Medicine 01/27/23 02/23/23 documented as of this encounter
--- OUTSIDE RECORDS SUMMARY | 2023-11-30 11:18 | XMS_ITS | Clinical Summary ---
Author Name Unknown Organization [place] Address [facility] [place] [address] Care Team Providers Care Supervisor Concrete Stone Fabricating Name Role Phone Maikel Brock Primary Care Provider [phone] Norma Cortez PA-C Unavailable Henry Vidal MD Unavailable [phone] Allergies Active Allergy Reactions Criticality Noted Date [...] capsule Take by mouth daily 0 Active Family History Relation Status Comments Father Mother Social History Tobacco Use Types Packs/Day Years [...] Comments Blood Pressure 120/80 10/30/2022 9:37 AM LOG SORTING SUPERVISOR Pulse 66 10/30/2022 9:37 AM LOG SORTING SUPERVISOR Temperature 36.6 ??C (97.9 ??F) 09/19/2017 9:41 AM CS T Respiratory Rate 20 09/19/2017 12:54 PM LOG SORTING SUPERVISOR Oxygen Saturation 98% 10/30/2022 9:37 AM LOG SORTING SUPERVISOR Inhaled Oxygen Concentration - - Weight 88 kg (194 lb) 10/30/2022 9:37 AM LOG SORTING SUPERVISOR Height 172.7 cm (5' 8) 10/30/2022 9:37 AM LOG SORTING SUPERVISOR Body Mass Index 29.5 10/30/2022 9:37 AM LOG SORTING SUPERVISOR Plan of Treatment Health Maintenance Due Date Last Done Comments ADVANCE CARE PLANNING 1940 ANNUAL REVIEW OF HM ORDERS 1940 LIPID 1940 RSV VACCINE ( & 60+) (1 - 1-dose 60+ series) 2000 FALL RISK ASSESSMENT 2005 MEDICARE ANNUAL WELLNESS VISIT 2005 TSH W/FREE T4 REFLEX 02/17/2015 02/17/2014, 01/03/2010, 12/06/2007, Additional history exists COVID-19 Vaccine ( - 2022- season) 2023 08/30/2021, 01/08/2021, 12/12/2020 INFLUENZA VACCINE (#1) 2023 , 08/02/2022, 07/30/2021, Additional history exists PHQ-2 (once per calendar year) 2023 DTAP/TDAP/TD IMMUNIZATION (4 - Td or Tdap) 01/26/2033 01/26/2023, 03/03/2022, 10/12/2012 ZOSTER IMMUNIZATION Completed 08/23/2019, 06/15/2019, 10/01/2010 Pneumococcal Vaccine: 65+ Years Completed 02/25/2022, 08/09/2010 HPV IMMUNIZATION Aged Out No longer e ligible based on patient's age to complete this topic IPV IMMUNIZATION Aged Out No longer e ligible based on patient's age to complete this topic MENINGITIS IMMUNIZATION Aged Out No l onger eligible based on patient's age to complete this topic RSV MONOCLONAL ANTIBODY Aged Out No l onger eligible based on patient's age to complete this topic Insurance Payer Benefit Plan / Group Subscriber ID Effective Dates Phone Address Type MEDICARE MEDICARE FOR HB SUPPLEMENT [id number] 2013-Prese nt ATTN CLAIMS [address] [place] [address] Medicare BCBS BCBS [employer] BLUE [id number] 2016-Prese nt [address] [address] [place] [address] PPO Advance Directives For more information, please contact: [phone] Documents on File Type Date Recorded Patient Wool Puller Expl anation Advance Directives and Living Will 11/07/2012 8:20 AM HEALTH CARE DIRECTIVE-10/09/1999 Advance Directives and Living Will 11/07/2012 8:20 AM VALIDATION OF AD-10/09/1999 Care Teams Supervisor Concrete Stone Fabricating Relationship Specialty Start Date End Date Maikel Brock [address] [facility] [place] [address] PCP - General Family Practice 09/19/17 Norma Cortez PA-C [address] [place] [address] Physician Motel Front Desk Attendant Urology 10/03/22 Henry Vidal MD [address] [place] [address] Assigned Surgical Provider 11/08/22
--- OUTSIDE RECORDS SUMMARY | 2023-11-30 11:18 | XMS_ITS | Encounter Summary ---
Author Name Unknown Organization [facility] Address [address] [place] [address] Care Team Providers Care Marine Engine Driver Name Role Phone Elsewhere, Pcp Primary Care Provider Unavailabl e Encounter Details Date Type Department Care Team (Late st Contact Info) Description 02/25/2023 Orders Only Department of Community Internal Medicine in [place], [place] [address] [facility] [place] [phone] Marj Tang V., EDMUNDO, C.N.P. [address] [facility] [place] [address] Social History Tobacco Use Types Packs/Day Years [...] on filedocumented in this encounter Care Teams Marine Engine Driver Relationship Specialty Start Date End Date Elsewhere, Pcp PCP - General Internal Medicine 02/24/23 03/23/23 documented as of this encounter
--- OUTSIDE RECORDS SUMMARY | 2023-11-30 11:18 | XMS_ITS | Encounter Summary ---
Author Name Unknown Organization [facility] Address [address] [place] [address] Care Team Providers Care Garnett Machine Operator Helper Name Role Phone Rick Sotelo C.N.P., M.S.N. Primary Care Pr ovider Encounter Details Date Type Department Care Team (Late st Contact Info) Description 02/09/2023 Clinical Communication Senior Services in [facility] [address] [phone] Nohelia Patel M.D. [address] [place] [phone] Social History Tobacco Use Types Packs/Day Years [...] - Nohelia De La Cruz M.D. - 02/09/2023 4:35 PM CDT Patient has BPH with history of obstruction. Nava catheter initially placed during hospitalizationearly September. This was removed by Urology on 10/03. It is unclear when it was replaced as I do not have those records. On 01/10 he was seen at the emergency department with urinary tract infection associated with indwelling catheter. He and his family would like trial of voiding. I gave the following orders: 1. Discontinue cefadroxil. Urine culture showed no growth 2. Remove catheter 3. Bladder scan for postvoid residual every shift and prn x3 days 4. Replace catheter for discomfort or for postvoid residual greater than 300 cc. Use coude catheter. documented in this encounter Plan of Treatment Not on file documented as of this encounter Visit Diagnoses Not on filedocumented in this encounter Care Teams Garnett Machine Operator Helper Relationship Specialty Start Date End Date Rick Sotelo C.N.P., M.S.N. [address] [place] [phone] PCP - General Internal Medicine 01/27/23 02/23/23 documented as of this encounter
--- OUTSIDE RECORDS SUMMARY | 2023-11-30 11:18 | XMS_ITS | Encounter Summary ---
Author Name Unknown Organization [place] Address [facility] [place] [address] Care Team Providers Care Railroad Signal Technician Name Role Phone Carlos Alberto Corral MD Primary Care Provider Maikel Brock Primary Care Provider [phone] Norma Cortez PA-C Unavailable [phone] Henry Vidal MD Unavailable [phone] Encounter Details Date Type Department Care Team (Late st Contact Info) Description 03/03/2014 Office Visit-[facility] [place] [address] [place] [address] Jey Parks MD [address] [facility] [address] [place] [id number] Social History Tobacco Use Types Packs/Day Years [...] as of this encounter Progress Notes * Jey Parks MD - 03/06/2014 2:52 PM CDT Progress Note Created by: Jey Parks M.D. DATE: 03/03/2014 REBEKAH XIONG DATE OF : 1940 AGE: [age] years old Referring Physician: CARLOS ALBERTO CORRAL Referring Clinic: [facility] CURRENT DIAGNOSES 1. - Shortness of Breath, [...] a past medical history of hypertension. He hashistory of SVT that was diagnosed in 11/2009 and was managed and was self-limiting. He has not beenon particular therapy for that. About two weeks [...] particularly at nighttime. The longest one was around1:30 a.m. for at least 5000 beats. 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 Release 24 Hr 1 p.o. daily DIRECTED Physician Order, Lipitor 10 Mg Tablet 1 p.o. daily DIRECTED Physician Order, metoprolol tartrate 50 mg tablet 1 p.o. daily #0 (Zero) Physician Order, metoprolol tartrate 50mg tablet 1 p.o. twice daily #0 (Zero) Physician Order, Prozac 20 mg Capsule 1 p.o. daily #0 Physician Order and Synthroid 125 mcg Tablet 1 p.o. daily 0 Physician Order IMPRESSION: History of symptomatic SVT. He had a recent episode that was self- limiting before he reached the emergency room, but the Holter monitor shows several episodes of SVT. This could representatrial tachycardia. He is on metoprolol and has not had much symptoms since then. I would like to do an echocardiogram to make sure there is no evidence of structural heart disease. We will refer himto a assembler surgical garment to see if medical therapy with metoprolol is reasonable or to consider antiarrhythmic therapy or ablation. He will also be referred to a sleep apnea clinic for sleep study. Isuspect he has sleep apnea and particularly his [...] 1 week 2. F/U with Any EP TAPE CONTROL SKIN OR SPAR MILL OPERATOR/PA 4-7 days, Aliya Raygoza, Marybel Ahumada, Cookie Bragg ONLY 3. [facility] Jey Parks M.D. documented in this encounter Plan of Treatment Not on file documented as of this encounter Visit Diagnoses Not on filedocumented in this encounter Care Teams Railroad Signal Technician Relationship Specialty Start Date End Date Carlos Alberto Corral MD PCP - General Internal Medicine 10/15/12 09/18/17 Maikel Brock [address] [facility] [place] [address] PCP - General Family Practice 09/19/17 Norma Cortez PA-C [address] [facility] [address] [place] [address] Physician Test Designer Urology 10/03/22 Henry Vidal MD [address] [facility] [address] [address] [place] [address] Assigned Surgical Provider 11/08/22 documented as of this encounter
== END 2023-11-27 13:20 | disposition home or self-care (01) ==
LOC: NFLDREF 11-30 11:07
PROVIDERS: PCP Family Medicine; Referring Provider Family Medicine; Visit Provider Family Medicine
DX: R35.0 Frequency of micturition (principal); K59.00 Constipation, unspecified; N39.0 Urinary tract infection, site not specified
CPT/HCPCS: 87086; 87186

== ENCOUNTER 2023-12-10 16:53 | Outpatient (CLI) | payer MEDICARE, BC, SELFPAY ==
--- OUTSIDE RECORDS SUMMARY | 2023-12-11 07:26 | XMS_ITS | Referral Summary ---
Author Name Unknown Organization [facility] Address [address] [place] [address] Care Team Providers Care Pipe Crew Foreman Name Role Phone Elsewhere, Pcp Primary Care Provider Unavailabl e Source Comments Patient records contain information from all sites at [facility]. For routine questions regarding patient records, call [phone] during business hours, M-F 8:00 AM - 5:00 PM Central Time. Record requests for emergency care only can be directed to [phone] at any time.[facility] Encounters Date Type Department Care Team Description 12/10/2023 Refill Department of Community Internal Medicine in [place], [place] [address] [place] [phone] Marj Tang V., EDMUNDO, C.N.P. Med Refill from Last 3 Months Allergies Active Allergy Reactions Criticality Noted Date Comments Aspirin Other (see comments) 01/30/2023 Unknown Iodinated Contrast Media Other (see comments) 0 01/30/2023 Unknown Iodine Other (see comments) 01/30/2023 Unknown Lisinopril Other (see comments) 01/30/2023 unknown Penicillin Other (see comments) 01/30/2023 Unknown [place] Other (see comments) 01/30/2023 Sulfa (Sulfonamide Antibiotics) [...] anaphylaxis. Inject into the thigh. 1 each 02/25/2023 Active tamsulosin (FLOMAX) 0.4 mg 24 hr capsule Take 2 capsules (0.8 mg total) by mouth daily. 90 capsule 02/25/2023 Active fluticasone propion-salmeter oL (Advair Diskus) [...] Active Problems Problem Noted Date Diagnosed Date Intermediate Stay Certification Exam 03/29/2023 Overview: Short-term Last Assessment & Plan: Patient stated family is planning to has been transitioned to RETIREMENT in the future. Patient remains appropriate SNF [...] fludrocortisone ?? Using abdominal binder and Kermit hose BP- 108/71-supine 108/71-sitting 103/68 Standing 98/65 99/63 Last Assessment & Plan: Continue midodrine per prescribed protocol. Constipation Slow Transit 02/23/2023 Overview: Slow transit on Senna as needed. Last Assessment & Plan: Regular BM daily in the intermediate. History Of Falling 02/15/2023 Overview: Multiple falls [...] been normotensive and hemodynamically stable in the intermediate. He takes midodrine 5 mg tid if systolic B/P is < 140 . He also wears an abdominal binder and compression stockings. Continue current plan. Nursing Home (Current) Anticoagulant Treatment 01/25 Overview: On rivaroxaban [...] 01/30/2023 Overview: Atrial fibrillation on sotalol and longterm anticoagulation with Xarelto 20 mg. ?? Admission 03/16/2023 with AFib/RVR. ?? Cardioversion to paced rhythm on 03/18. ?? Sotalol discontinued in favor of amiodarone. Last Assessment & Plan: Rate controlled. Follow up with cardiology and PCP for thyroid and lung function monitoring on amiodarone. Primary Malignant Neoplasm Of Prostate Overview: EXT PSA Tumor Marker 0.00 - [...] confined to his/her home and needs intermittent longterm care, physical therapy and/or speech therapy or continues to need occupational therapy. A plan of care has been established and will be reviewed periodically by a physician or allowed practitioner. Services will be furnished while the patient is under the care of a physician or allowed practitioner. The patient had a [id number] encounter with a physician or an allowed non-physician practitioner and the encounter was related to the primary reason for home health. Date of Face to Face Encounter: 04/06/23 Based on my finding, review of the medical records, and/or collaboration with the other providers, the following services are medically necessary home health services: Physical Therapy, Occupational Therapy, Medication set up and CLOTH WINDING SUPERVISOR This patient is confined to his home because: Patient requires cares and assistance of another individual, does not drive, and needs the assistance of others to leave the home. Provider following for home care services: Dr. Arevalo [facility] Marj Tang APRN, C.N.P. 04/06/23 Rhinitis [...] syndrome. Followed by Dr. Oscar Miner through [place] [facility] [place] at [facility]. Last Assessment & Plan: Continue planned device [...] the renal function is stable. Resulting Agency [facility] Last Assessment & Plan: On amlodipine 10 mg daily. No leg edema. Decline Cognitive 01/30/2023 03/29/2023 Overview: Dementia per Hospital record Last Assessment & Plan: Therapy will evaluate him in the intermediate setting. Pacemaker Cardiac Status Post 01/30/2023 01/30/2023 [...] of Treatment Not on file Care Teams Pipe Crew Foreman Relationship Specialty Start Date End Date Elsewhere, Pcp PCP - General Internal Medicine 04/08/23
--- OUTSIDE RECORDS SUMMARY | 2023-12-11 07:26 | XMS_ITS | Clinical Summary ---
Author Name Unknown Organization [facility] Address [place], [place] [address] Care Team Providers Care Financial Sales Consultant Name Role Phone Oscar Arevalo MD Primary [...] please. Penicillins *Unknown 08/18/2012 From scanned document [place] [facility] 07/07/2017 Sulfa (Sulfonamide Antibiotics) *Unknown 08/18/2012 From scanned document Sulfasalazine *Unknown - Childhood Rxn 11/01/2012 Medications Medication Sig Dispensed Refills Start Date End Date Status cetirizine (ZYRTEC) 10 mg tabletIndications:season al allergic rhinitis Take 10 mg by mouth once daily if needed for Allergy Symptoms. 0 Active fluticasone (50 mcg per actuation) nasal solution (FLONASE) Inhale 1 [place] to both nostrils once daily if needed [...] Documents on File Type Date Recorded Patient Casino Floor Supervisor Expl anation POLST 10/03/2022 Healthcare Directive 03/16/2017 [...] 6:54 AM 07/13/2017 7:56 PM Care Teams Financial Sales Consultant Relationship Specialty Start Date End Date Oscar Arevalo MD [address] [facility] [place] [address] PCP - General Family Practice 05/14/21
--- OUTSIDE RECORDS SUMMARY | 2023-12-11 07:26 | XMS_ITS | Clinical Summary ---
Author Name Unknown Organization [facility] Address [address] [place] [address] Care Team Providers Care Institute Director Name Role Phone Elsewhere, Pcp Primary Care Provider Unavailabl e Source Comments Patient records contain information from all sites at [facility]. For routine questions regarding patient records, call [phone] during business hours, M-F 8:00 AM - 5:00 PM Central Time. Record requests for emergency care only can be directed to [phone] at any time.[facility] Allergies Active Allergy Reactions Criticality Noted Date Comments Aspirin Other (see comments) 01/30/2023 Unknown Iodinated Contrast Media Other (see comments) 0 01/30/2023 Unknown Iodine Other (see comments) 01/30/2023 Unknown Lisinopril Other (see comments) 01/30/2023 unknown Penicillin Other (see comments) 01/30/2023 Unknown [place] Other (see comments) 01/30/2023 Sulfa (Sulfonamide Antibiotics) [...] Active Problems Problem Noted Date Diagnosed Date [facility] Stay Certification Exam 03/29/2023 Overview: Short-term Last [...] & Plan: Regular BM daily in the care home. History Of Falling 02/15/2023 Overview: Multiple [...] been normotensive and hemodynamically stable in the care home. He takes midodrine 5 mg tid if systolic B/P is < 140 . He also wears an abdominal binder and compression stockings. Continue current plan. Intermediate (Current) Anticoagulant Treatment 01/25 Overview: On rivaroxaban [...] 01/30/2023 Overview: Atrial fibrillation on sotalol and intermediate frame tender anticoagulation with Xarelto 20 mg. ?? Admission [...] confined to his/her home and needs intermittent mcfp care, physical therapy and/or speech therapy or continues to need occupational therapy. A plan of care has been established and will be reviewed periodically by a physician or allowed practitioner. Services will be furnished while the patient is under the care of a physician or allowed practitioner. The patient had a [id number] encounter with a physician or an allowed non-physician practitioner and the encounter was related to the primary reason for home health. Date of Face to Face Encounter: 04/06/23 Based on my finding, review of the medical records, and/or collaboration with the other providers, the following services are medically necessary home health services: Physical Therapy, Occupational Therapy, Medication set up and BOOK CRITIC This patient is confined to his home because: Patient requires cares and assistance of another individual, does not drive, and needs the assistance of others to leave the home. Provider following for home care services: Dr[facility] Arevalo [facility] Marj Tang APRN, C.N.P. 04/06/23 Rhinitis [...] syndrome. Followed by Dr. Oscar Miner through [place] [facility] [place] [facility]. Last Assessment & Plan: Continue planned device [...] the renal function is stable. Resulting Agency [facility] Last Assessment & Plan: On amlodipine 10 mg daily. No leg edema. Decline Cognitive 01/30/2023 03/29/2023 Overview: Dementia per Hospital record Last Assessment & Plan: Therapy will evaluate him in the care home setting. Pacemaker Cardiac Status Post 01/30/2023 01/30/2023 Sick Sinus Syndrome 01/30/2023 02/24/20 23 Overview: Pacemaker Last Assessment & Plan: Bedside monitor Encounters Date Type Department Care Team Description 12/10/2023 Refill Department of Community Internal Medicine in [address] [phone] Marj Tang V., EDMUNDO, C.N.P. Med Refill from Last 3 Months Immunizations Name Administration Dates Next Due SARS-COV-2 [...] - Risk 3-dose series) 2000 COVID-19 Vaccine (2022-2 4 season) 2023 08/30/2021, 01/08/2021, 12/12/2020 Fall [...] 02/26/20, 08/09/2010 Influenza Vaccine Completed 10/27/2023, , 08/02/2022, Additional history exists Care Teams Institute Director Relationship Specialty Start Date End Date Elsewhere, Pcp PCP - General Internal Medicine 04/08/23
--- OUTSIDE RECORDS SUMMARY | 2023-12-11 07:27 | XMS_ITS | Encounter Summary ---
Author Name Unknown Organization [facility] Address [address] [place] [address] Care Team Providers Care Probation Counselor Name Role Phone Elsewhere, Pcp Primary Care Provider Unavailabl e Reason for Visit * Reason Onset Date Comments Form Review 04/22/2023 [facility] ( Order [id number] Encounter Details Date Type Department Care Team (Latest Contact Info) Description 04/22/2023 Clinical Communication Department of Community Internal Medicine in [place], [place] [address] [facility] [place] [address] Marj Tang V., EDMUNDO, C.N.P. [address] [facility] [place] [phone] Form Review ([facility] ( Order [id number]) Social History Tobacco Use Types Packs/Day Years [...] back to the listed facility. Scanned into [facility] * Telephone Encounter - Chanda Carnes - 04/22/2023 9:27 AM CDT Form was emailed to Marj Tang for electronic review/signature. MEDICAL DERMATOLOGIST: [facility] PHONE NUMBER: [phone] INFO REQUESTED: Order [id number] INSTRUCTIONS: Fax information to [phone] documented in this encounter Plan of Treatment Not on file documented as of this encounter Visit Diagnoses Not on filedocumented in this encounter Care Teams Probation Counselor Relationship Specialty Start Date End Date Elsewhere, Pcp PCP - General Internal Medicine 04/08/23 documented as of this encounter
--- OUTSIDE RECORDS SUMMARY | 2023-12-11 07:27 | XMS_ITS | Encounter Summary ---
Author Name Unknown Organization [facility] Address [address] [place] [address] Care Team Providers Care Floorworker Name Role Phone Elsewhere, Pcp Primary Care Provider Unavailabl e Reason for Visit * Reason Onset Date Comments Forms 05/07/2023 [facility] - order [id number] Encounter Details Date Type Department Care Team (Latest Contact Info) Description 05/07/2023 Clinical Communication Department of Community Internal Medicine in [place], [place] [address] [place] [phone] Marj Tang V., EDMUNDO, C.N.P. [address] [place] [phone] Forms ([facility] - order [id number]) Social History Tobacco Use Types Packs/Day Years [...] back to the listed facility. Scanned into [facility] * Telephone Encounter - Christy Hung - 05/07/2023 10:11 AM CDT Form was emailed to Chandra Tang APRN CNP for electronic review/signature. TESTING MANAGER: [facility] PHONE NUMBER: [phone] INFO REQUESTED: order [id number] INSTRUCTIONS: Fax information to [phone] documented in this encounter Plan of Treatment Not on file documented as of this encounter Visit Diagnoses Not on filedocumented in this encounter Care Teams Floorworker Relationship Specialty Start Date End Date Elsewhere, Pcp PCP - General Internal Medicine 04/08/23 documented as of this encounter
--- OUTSIDE RECORDS SUMMARY | 2023-12-11 07:27 | XMS_ITS | Encounter Summary ---
Author Name Unknown Organization [facility] Address [address] [place] [address] Care Team Providers Care Nut Sifter Name Role Phone Rick SoteloN.Rishi, M.S.N. Primary Care Pr ovider Reason for Referral * Outpatient (Routine) - Authorized Specialty Diagnoses / Procedures Referred By Eri jay Referred To Contact Diagnoses Atrial Fibrillation Paroxysmal (HCC) Procedures ECG 12 Lead Rick Sotelo C.NAn, M.S.N. [address] [place] [address] [facility] Region Referral ID Status Reason Start Date Expiration Date V isits Requested Visits Authorized [id number] Authorized 03/29/2023 03/28/2024 1 1 Reason for Visit * Reason Comments [facility] medication reconciliation * Appointment Request (Routine) - Closed Specialty Diagnoses / Procedures Referred By Eri jay Referred To Contact [facility] Facility Referral ID Status Reason Start Date Expiration Date Visits Re quested Visits Authorized [id number] Closed 03/24/2023 03/23/2024 1 1 Encounter Details Date Type Department Care Team (Latest Contact Info) Description 03/25/2023 10:00 AM CDT External Outreach Senior Services in [facility] [address] [place] [phone] Rick Sotelo C.N.Rishi, M.S.N. 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; Dementia (HCC); Rhinitis Allergic; Hypotension Orthostatic; Atrial Fibrillation Paroxysmal (HCC); Gastroesophageal Reflux Disease Without Esophagitis; Constipation Slow Transit; Primary Malignant Neoplasm Of Prostate (HCC); Hypertension And Chronic Kidney Disease Stage 2; Hypothyroidism; Hyperlipidemia Mixed; Pacemaker Cardiac Status Post; Faculty Support Coordinator (Current) Anticoagulant Treatment; History Of Falling; Depression Anxiety; Alcohol Use Unspecified Uncomplicated; Care Home Stay Certification Exam Social History Tobacco Use [...] documented in this encounter H&P Notes * iRck Sotelo APRN, C.N.P. - 03/25/2023 10:00 AM CDT Images from the original note were not included. CHIEF COMPLAINT / REASON FOR VISIT [facility] medication reconciliation Visit penitentiary medication reconciliation Visit Type: In Person: Face to Face SUBJECTIVE HISTORY OF PRESENT ILLNESS Today's narrative history (obtained from the patient and nursing): Abraham Mancuso is an 82-year-old male resident at [facility].Medical history significant for history of atrial fibrillation, s/p pacemaker placement for bradycardia, COPD, BPH. Patient was recently discharged from [facility]. On 03/16/2023, patient re-presented to [place] from [facility] with shortness of breath and presyncopal [...] fib with RVR and was transferred to [facility] for cardiology input. On admission, his Flomax was discontinued due to orthostasis. Echocardiogram on 03/16/23 was significant for newly reduced EF of 45%. Pacemaker interrogation showed that patient has been in atrial fibrillation since 03/14/23 with variable ventricular rates. Cardiac CT negative for AMAYA thrombus or concern for obstructive CAD. NM scan for amyloid grossly negative. Underwent DCCV 03/18/23 with initial taoism of AV Paced rhythm with early recurrence [...] of bed. Today, patient is seen for longterm medication reconciliation. Nursing and therapy reported improvement in orthostatic blood pressure with 108/71 supine, 107/71 sitting, 103/68 standing. But, reported worsening depression and low appetite. LONG WINDER TENDER suggested low dose of mirtazapine for his [...] Paroxysmal (HCC) Atrial fibrillation on sotalol and medical terminologist anticoagulation with Xarelto 20 mg. Admission 03/16/2023 [...] syndrome. Followed by Dr. Oscar Miner through [place] [facility] [place] at [facility]. 10. History Of Falling [...] GLUCOSE 91 03/26/2023 CALCIUM 8.7 03/26/2023 13. Jail (Current) Anticoagulant Treatment On rivaroxaban in the setting of atrial fibrillation. 14. Dementia (HCC) Likely multifactorial including alcohol. Has required assistance from daughter. Sundowning present. 15. Constipation Slow Transit Slow transit on Senna as needed. 16. 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 Currently taking midodrine and fludrocortisone Using abdominal binder and Kermit hose BP- 108/71-supine 108/71-sitting 103/68 Standing 98/65 99/63 17. Care Home Stay Certification Exam Short-term Past medical/surgical history, [...] Assessment & Plan: Intact and functioning. #14 Faculty Support Coordinator (Current) Anticoagulant Treatment Assessment & Plan: Continue [...] Current PHQ-9 not available. Will have facility manager social responsibility check PHQ-9. Continue care plan. #17 Alcohol Use Unspecified Uncomplicated #18 Care Home Stay Certification Exam Assessment & Plan: Patient stated family is planning to has been transitioned to [facility] in the future. Patient remains appropriate SNF [...] Disposition Planning This is a planned short-term longterm stay for rehabilitation. Patient plans to return to previous living situation at the completion of therapies. It is likely that he will need increased in-home services versus assisted living versus long-term care. # 19 Care Home Stay Justification Exam Current comorbidities, ADL need/level [...] C.N.P. - 03/29/2023 10:30 PM CDTAssociated Problem(s): Care Home Stay Certification Exam Patient stated family is [...] Current PHQ-9 not available. Will have facility manager social responsibility check PHQ-9. Continue care plan. * Assessment & Plan Note - Rick Sotelo APRN, C.N.P. - 03/29/2023 7:53 PM CDTAssociated Problem(s): History Of Falling Continue PT/OT. * Assessment & Plan Note - Rick Sotelo APRN, C.N.P. - 03/29/2023 7:53 PM CDTAssociated Problem(s): Jail (Current) Anticoagulant Treatment Continue care plan * [...] Hypothyroidism Hyperlipidemia Mixed Pacemaker Cardiac Status Post Faculty Support Coordinator (Current) Anticoagulant Treatment History Of Falling Depression Anxiety Alcohol Use Unspecified Uncomplicated Care Home Stay Certification Exam documented in this encounter Care Teams Nut Sifter Relationship Specialty Start Date End Date Rick Sotelo C.N.PYu, M.S.N. [address] [place] [address] PCP - General Internal Medicine 5/30/23 6/13/23 documented as of this encounter
--- OUTSIDE RECORDS SUMMARY | 2023-12-11 07:27 | XMS_ITS | Encounter Summary ---
Author Name Unknown Organization [facility] Address [address] [place] [address] Care Team Providers Care Extension Service Specialist Name Role Phone Elsewhere, Pcp Primary Care Provider Unavailabl e Reason for Visit * Reason Onset Date Comments Form Review 05/25/2023 Aida ([id number] Encounter Details Date Type Department Care Team (Latest Contact Info) Description 05/25/2023 Clinical Communication Department of Community Internal Medicine in [place], [place] [address] [place] [phone] Marj Tang V., EDMUNDO, C.N.P. 300 [place] [phone] Form Review (Aida ([id number]) Social History Tobacco Use Types Packs/Day Years [...] Marj Tang APRN, CNP for electronic review/signature. ELECTROTYPE MOLDER: [facility] PHONE NUMBER: [phone] INFO REQUESTED: [id number] INSTRUCTIONS: Fax information to [phone] documented in this encounter Plan of Treatment Not on file documented as of this encounter Visit Diagnoses Not on filedocumented in this encounter Care Teams Extension Service Specialist Relationship Specialty Start Date End Date Elsewhere, Pcp PCP - General Internal Medicine 04/08/23 documented as of this encounter
--- OUTSIDE RECORDS SUMMARY | 2023-12-11 07:27 | XMS_ITS ---
Author Name Unknown Organization [facility] Address [address] [place] [address] Care Team Providers Care Church Communications Administrator Name Role Phone Unavailable Unavailable Unavailable Surgery Details Not on file Complications Check Surgery Details section. Procedure Estimated Blood Loss Check Surgery Details section. Procedure Findings Check Surgery Details section. Procedure Specimens Taken Check Surgery Details section.
--- OUTSIDE RECORDS SUMMARY | 2023-12-11 07:27 | XMS_ITS | Encounter Summary ---
Author Name Unknown Organization [facility] Address [address] [place] [address] Care Team Providers Care Stave Cutter Name Role Phone Rick Sotelo C.N.P., M.S.N. Primary Care Pr ovider Encounter Details Date Type Department Care Team (Late st Contact Info) Description 02/09/2023 Clinical Communication Senior Services in [facility] [address] [phone] Nohelia Patel M.D. [address] [place] [phone] Social History Tobacco Use Types Packs/Day Years [...] on filedocumented in this encounter Care Teams Stave Cutter Relationship Specialty Start Date End Date Rick Sotelo C.N.P., M.S.N. [address] [place] [phone] PCP - General Internal Medicine 01/27/23 02/23/23 documented as of this encounter
--- OUTSIDE RECORDS SUMMARY | 2023-12-11 07:27 | XMS_ITS | Encounter Summary ---
Author Name Unknown Organization [facility] Address [address] [place] [address] Care Team Providers Care Electronics Production Supervisor Name Role Phone Rick Sotelo C.N.P., M.S.N. Primary Care Pr ovider Encounter Details Date Type Department Care Team (Late st Contact Info) Description 02/01/2023 Clinical Communication Senior Services in [facility] [address] [phone] Nohelia Patel M.D. [address] [place] [phone] Social History Tobacco Use Types Packs/Day Years [...] Answer: Hematuria Order Specific Question: Region: Answer: [facility] [[id number]] Urinalysis with Microscopic: Urine, Indwelling Catheter Order Specific Question: Region: Answer: [facility] [[id number]] sennosides-docusate sodium (SENOKOT-S) 8.6-50 mg per tablet Sig: Take 2 tablets by mouth 2 (two) times a day. Electronically signed by: Nohelia De La Cruz M.D. 02/01/23 7:34 PM CDT documented in this encounter Plan of Treatment Not on file documented as of this encounter Visit Diagnoses Diagnosis Hematuria- Primary Constipation Slow Transit documented in this encounter Care Teams Electronics Production Supervisor Relationship Specialty Start Date End Date Rick Sotelo C.N.P., M.S.N. [address] [place] [phone] PCP - General Internal Medicine 01/27/23 02/23/23 documented as of this encounter
--- OUTSIDE RECORDS SUMMARY | 2023-12-11 07:27 | XMS_ITS | Encounter Summary ---
Author Name Unknown Organization [facility] Address [address] [place] [address] Care Team Providers Care Electrical Electronics Technician Name Role Phone Rick Sotelo C.N.P., M.S.N. Primary Care Pr ovid Reason for Visit * Reason Onset Date Comments Results 03/30/2023 Encounter Details Date Type Department Care Team (Late st Contact Info) Description 03/30/2023 Clinical Communication Division of Community Internal Medicine, [facility] in [place], [place] [address] [place] [phone] Rick Sotelo C.N.P., M.S.N. [address] [place] [phone] Results Social History Tobacco Use Types Packs/Day [...] on filedocumented in this encounter Care Teams Electrical Electronics Technician Relationship Specialty Start Date End Date FarazRick sanchez C.N.[place]., [place] [phone] PCP - General Internal Medicine 03/24/23 04/07/23 documented as of this encounter
--- OUTSIDE RECORDS SUMMARY | 2023-12-11 07:27 | XMS_ITS | Encounter Summary ---
Author Name Unknown Organization [facility] Address [address] [place] [address] Care Team Providers Care Teacher Vocational Training Name Role Phone Rick Sotelo C.N.PYu, M.S.N. Primary Care Pr ovid Reason for Visit * Appointment Request (Routine) - Closed Specialty Diagnoses / Procedures Referred By Eri jay Referred To Contact Jail Facility Referral ID Status Reason Start Date Expiration Date Visits Re quested Visits Authorized [id number] Closed 04/06/2023 04/05/2024 1 1 Encounter Details Date Type Department Care Team (Latest Contact Info) Description 04/06/2023 3:00 PM CDT External Outreach Senior Services in [facility] [address], [place] [address] Marj Tang APRN, C.N.P. [address] [facility] [phone] Hyperlipidemia Mixed (Primary Dx); Atrial Fibrillation Paroxysmal [...] CDT CHIEF COMPLAINT / REASON FOR VISIT [facility] Discharge Visit Visit Type: In Person: Face to Face SUBJECTIVE HISTORY OF PRESENT ILLNESS Today's narrative history (obtained from Patient and Nursing): Abraham Mancuso is a 83 y.o. male who underwent rehab at [facility] from 03/24/23to 04/09/23, after being hospitalized at [facility] from 03/16/23 to 03/24/23 for Atrial fibrillation with RVR. Abraham was admitted to [facility] on 03/16 with lightheadedness found secondary to [...] Paroxysmal (HCC) Atrial fibrillation on sotalol and meterman anticoagulation with Xarelto 20 mg. Admission 03/16/2023 [...] syndrome. Followed by Dr. Oscar Miner through [place] [facility]. 9. Alcohol Use Unspecified Uncomplicated He has [...] nursing note reviewed. Exam conducted with a superintendent plant protection present. Constitutional Appearance: Normal appearance. He is [...] confined to his/her home and needs intermittent retirement care, physical therapy and/or speech therapy or continues to need occupational therapy. A plan of care has been established and will be reviewed periodically by a physician or allowed practitioner. Services will be furnished while the patient is under the care of a physician or allowed practitioner. Thepatient had a smok-bg-fofs encounter with a physician or an allowed non-physician practitioner and the encounter was related to the primary reason for home health. Date of Face to Face Encounter: 04/06/23 Based on my finding, review of the medical records, and/or collaboration with the other providers, the following services are medically necessary home health services: Physical Therapy, Occupational Therapy, Medication set up and MICROSOFT ARCHITECT This patient is confined to his home because: Patient requires cares and assistance of another individual, does not drive, and needs the assistance of others to leave the home. Provider following for home care services: Dr. Arevalo [facility] Marj Tang APRN, C.N.P. 04/06/23 #6 Depression [...] confined to his/her home and needs intermittent retirement care, physical therapy and/or speech therapy or continues to need occupational therapy. A plan of care has been established and will be reviewed periodically by a physician or allowed practitioner. Services will be furnished while the patient is under the care of a physician or allowed practitioner. Thepatient had a ibiz-me-ytmq encounter with a physician or an allowed non-physician practitioner and the encounter was related to the primary reason for home health. Date of Face to Face Encounter: 04/06/23 Based on my finding, review of the medical records, and/or collaboration with the other providers, the following services are medically necessary home health services: Physical Therapy, Occupational Therapy, Medication set up and MICROSOFT ARCHITECT This patient is confined to his home because: Patient requires cares and assistance of another individual, does not drive, and needs the assistance of others to leave the home. Provider following for home care services: Dr. Arevalo [facility] Marj Tang APRN, C.N.P. 04/06/23 * Assessment [...] Esophagitis documented in this encounter Care Teams Teacher Vocational Training Relationship Specialty Start Date End Date Rick Sotelo C.N.PYu, M.S.N. [address] [place] [phone] PCP - General Internal Medicine 03/24/23 04/07/23 documented as of this encounter
--- OUTSIDE RECORDS SUMMARY | 2023-12-11 07:27 | XMS_ITS | Encounter Summary ---
Author Name Unknown Organization [facility] Address [address] [place] [address] Care Team Providers Care Technical Support Associate Name Role Phone Elsewhere, Pcp Primary Care Provider Unavailabl e Reason for Visit * Reason Onset Date Comments Form Review 05/26/2023 Aida #[id number] Encounter Details Date Type Department Care Team (Latest Contact Info) Description 05/26/2023 Clinical Communication Department of Community Internal Medicine in [place], [place] [address] [place] [phone] Marj Tang V., EDMUNDO, C.N.P. [address] [place] [phone] Form Review (Aida #[id number]/) Social History Tobacco Use Types Packs/Day Years [...] to Marj Tang APRN for electronic review/signature. CLINICAL INFORMATICS SPEC: [facility] PHONE NUMBER: [phone] INFO REQUESTED: #[id number] INSTRUCTIONS: Fax information to [phone] documented in this encounter Plan of Treatment Not on file documented as of this encounter Visit Diagnoses Not on filedocumented in this encounter Care Teams Technical Support Associate Relationship Specialty Start Date End Date Elsewhere, Pcp PCP - General Internal Medicine 04/08/23 documented as of this encounter
--- OUTSIDE RECORDS SUMMARY | 2023-12-11 07:27 | XMS_ITS | Encounter Summary ---
Author Name Unknown Organization [facility] Address [address] [place] [address] Care Team Providers Care Model Technician Name Role Phone Elsewhere, Pcp Primary Care Provider Unavailabl e Reason for Visit * Reason Comments Med Refill Encounter Details Date Type Department Care Team (Late st Contact Info) Description 12/10/2023 Refill Department of Community Internal Medicine in [place], [place] [address] [place] [phone] Marj Tang V., EDMUNDO, C.N.P. [address] [place] [phone] Med Refill Social History Tobacco Use Types Packs/Day Years [...] encounter Miscellaneous Notes * Telephone Encounter - Yesy Vázquez - 12/10/2023 2:51 PM CST Should have refill(s) remaining from 04/06/23 RX of 90 tabs/3 refills escribed to [facility] RECREATIONAL FACILITIES MANAGER documented in this encounter Plan of Treatment Not on file documented as of this encounter Visit Diagnoses Not on filedocumented in this encounter Care Teams Model Technician Relationship Specialty Start Date End Date Elsewhere, Pcp PCP - General Internal Medicine 04/08/23 documented as of this encounter
--- OUTSIDE RECORDS SUMMARY | 2023-12-11 07:27 | XMS_ITS | Encounter Summary ---
Author Name Unknown Organization [facility] Address [address] [place] [address] Care Team Providers Care Metal Refiner Name Role Phone Elsewhere, Pcp Primary Care Provider Unavailabl e Reason for Visit * Reason Onset Date Comments Form Review 04/25/2023 [facility] order [id number] Encounter Details Date Type Department Care Team (Latest Contact Info) Description 04/25/2023 Clinical Communication Department of Community Internal Medicine in [place], [place] [address] [place] [phone] Marj Tang V., EDMUNDO, C.N.P. [address] [place] [phone] Form Review ([facility] order [id number]) Social History Tobacco Use Types Packs/Day Years [...] faxed back to facility. Copy sent to [facility] for scanning. * Telephone Encounter - Valentina Valdez - 04/25/2023 8:10 PM CDT Form was emailed to Marj Tang CNP, for electronic review/signature. TECHNICAL COMMUNICATION TEACHER: [facility] PHONE NUMBER: [phone] INFO REQUESTED: Order [id number] INSTRUCTIONS: Fax information to [phone] documented in this encounter Plan of Treatment Not on file documented as of this encounter Visit Diagnoses Not on filedocumented in this encounter Care Teams Metal Refiner Relationship Specialty Start Date End Date Elsewhere, Pcp PCP - General Internal Medicine 04/08/23 documented as of this encounter
--- OUTSIDE RECORDS SUMMARY | 2023-12-11 07:27 | XMS_ITS | Encounter Summary ---
Author Name Unknown Organization [facility] Address [address] [place] [address] Care Team Providers Care Breeding Manager Name Role Phone Rick Sotelo C.N.P., M.S.N. Primary Care Pr ovid Reason for Visit * Reason Comments Routine [facility] Visit SNF admission Encounter Details Date Type Department Care Team (Latest Contact Info) Description 02/02/2023 3:00 PM CDT External Outreach Senior Services in [facility] [address] [phone] Nohelia Garrido M.D. 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 She has dementia and daughter is primary caregiver. Primary care provider: Dr. Arevalo SUBJECTIVE HISTORY OF PRESENT ILLNESS Today's narrative history (obtained from Patient, Nursing, and Family Member): Abraham Mancuso was admitted to [facility] on 01/28/2023 after a stay at the [facility]. He was admitted there on 01/26 after [...] Fibrillation Unspecified Atrial fibrillation on sotalol and long-term anticoagulation with Xarelto 20 mg. 3. Contusion [...] progressive compared to the 2019 exam. 12. Fitness Supervisor (Current) Anticoagulant Treatment On rivaroxaban in the setting of atrial fibrillation. 13. 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 Followed by Dr. Oscar Miner through [place] [facility] [place] [facility]. 14. Primary Malignant Neoplasm Of Prostate [...] cares. Vision, hearing or dentition concerns. Glasses, shoshone-paiute dentition Bladder: Catheter Bowel: Continent BIMS: 14 [...] available in Epic. Monitored by primary through [facility] and [facility]. #5 Hypertension And Chronic Kidney Disease Stage 2 #6 Atrial Fibrillation Unspecified #7 Halfway (Current) Anticoagulant Treatment #8 Pacemaker Cardiac Status Post Assessment & Plan: Due for device check 03/05/2023. #9 Primary Malignant Neoplasm Of Prostate (HCC) Assessment & Plan: Follows with Urology through [facility]. #10 Depression Anxiety Assessment & Plan: Most [...] Disposition Planning This is a planned short-term [facility] stay for rehabilitation. Patient plans to return to previous living situation at the completion of therapies. It is likely that he will need increased in-home services versus assisted living versus long-term care. # 19 [facility] Stay Justification Exam Current comorbidities, ADL need/level [...] Of Prostate (HCC) Follows with Urology through [facility]. * Assessment & Plan Note - Nohelia [...] Problem(s): Hypothyroidism No up-to-date TSH available in [facility]. Monitored by primary through [facility] and [facility]. * Assessment & Plan Note - [...] Disease Stage 2 Atrial Fibrillation Unspecified (HCC) Fitness Supervisor (Current) Anticoagulant Treatment Pacemaker Cardiac Status Post Primary Malignant Neoplasm Of Prostate (HCC) Depression Anxiety Alcohol Use Unspecified Uncomplicated Hyperlipidemia Mixed Retention Urinary Dementia (HCC) Rhinitis Allergic Depressive Disorder Gastroesophageal Reflux Disease Without Esophagitis documented in this encounter Care Teams Breeding Manager Relationship Specialty Start Date End Date Rick Sotelo C.N.P., M.S.N. [address] [place] [phone] PCP - General Internal Medicine 01/27/23 02/23/23 documented as of this encounter
--- OUTSIDE RECORDS SUMMARY | 2023-12-11 07:27 | XMS_ITS | Encounter Summary ---
Author Name Unknown Organization [facility] Address [address] [place] [address] Care Team Providers Care Parent Partner Name Role Phone Rick Sotelo C.N.PYu, M.S.N. Primary Care Pr ovid Reason for Visit * Appointment Request (Routine) - Closed Specialty Diagnoses / Procedures Referred By Eri jay Referred To Contact Longterm Facility Referral ID Status Reason Start Date Expiration Date Visits Re quested Visits Authorized [id number] Closed 01/28/2023 01/28/2024 1 1 Encounter Details Date Type Department Care Team (Latest Contact Info) Description 01/29/2023 3:00 PM CDT External Outreach Senior Services in [facility] [address], [place] [address] Marj Tang APRN, C.N.P. [address] [facility] [phone] Atrial Fibrillation Unspecified (Primary Dx); Primary Malignant [...] CDT CHIEF COMPLAINT / REASON FOR VISIT [facility] Admission Visit Visit Type: In Person: Face [...] 4.00 ug/L <0.04 Resulting Agency [facility] Specimen Collected: 10/30/22 10:16 CANOE INSPECTOR Last Resulted: 10/30/22 10:44 CANOE INSPECTOR Denny Catheter, urinary retention hx of cystitis. On finasteride and tamsulosin. On cefadroxil . 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 Started drinking 5-6 glasses of wine . #3 Syncope Vasovagal Overview: Orthostatic hypotension #4 Atrial Fibrillation Unspecified Overview: Atrial fibrillation on sotalol and usp anticoagulation with Xarelto 20 mg. #5 Hyperlipidemia [...] the renal function is stable. Resulting Agency [facility] #8 Injury Head Intracranial [...] touched. Therapy will do cognitive evaluation per fpc protocol. #9 Rhinitis Allergic Assessment & Plan: Asymptomatic presently #10 Decline Cognitive Assessment & Plan: Therapy will evaluate him in the fpc setting. #11 Depression Anxiety Assessment & Plan: He will have a PHQ 9 administered in the fpc setting. #12 Gastroesophageal Reflux Disease Without Esophagitis [...] have a PHQ 9 administered in the fpc setting. * Assessment & Plan Note - Marj Tang APRN, C.N.P. - 01/30/2023 6:51 PM CDTAssociated Problem(s): Decline Cognitive (Resolved 03/29/2023) Therapy will evaluate him in the fpc setting. * Assessment & Plan Note - [...] touched. Therapy will do cognitive evaluation per fpc protocol. * Assessment & Plan Note - [...] again. * Assessment & Plan Note - Marj Tang APRN, C.N.P. - 01/30/2023 6:00 PM [...] (HCC) documented in this encounter Care Teams Parent Partner Relationship Specialty Start Date End Date Rick Sotelo C.N.P., M.S.N. [address] [place] [phone] PCP - General Internal Medicine 01/27/23 02/23/23 documented as of this encounter
--- OUTSIDE RECORDS SUMMARY | 2023-12-11 07:27 | XMS_ITS | Encounter Summary ---
Author Name Unknown Organization [facility] Address [address] [place] [address] Care Team Providers Care Plate Washer Name Role Phone Elsewhere, Pcp Primary Care Provider Unavailabl e Reason for Visit * Reason Onset Date Comments Form Review 06/11/2023 Aida [id number] Encounter Details Date Type Department Care Team (Latest Contact Info) Description 06/11/2023 Clinical Communication Department of Family Medicine, [facility], in [place], [place] [address] [place] [phone] Biju Perry P.A.-C., P.A. [address] [place] [phone] Form Review (Aida [id number]) Social History Tobacco Use Types Packs/Day Years [...] back to the listed facility Scanned into [facility] (Sweep Folder-Routine) * Telephone Encounter - Judy Manley - 06/11/2023 4:24 PM CDT Form was emailed to Vicky Tang for electronic review/signature. SENIOR NETWORK SYSTEMS ENGINEER: [facility] [employer] PHONE NUMBER: na INFO REQUESTED: [id number] INSTRUCTIONS: Fax information to [phone] [place] documented in this encounter Plan of Treatment Not on file documented as of this encounter Visit Diagnoses Not on filedocumented in this encounter Care Teams Plate Washer Relationship Specialty Start Date End Date Elsewhere, Pcp PCP - General Internal Medicine 04/08/23 documented as of this encounter
--- OUTSIDE RECORDS SUMMARY | 2023-12-11 07:27 | XMS_ITS | Encounter Summary ---
Author Name Unknown Organization [facility] Address [address] [place] [address] Care Team Providers Care Powertrain Control Systems Engineer Name Role Phone Rick SoteloNAn, M.S.N. Primary Care Pr ovider Reason for Referral * Outpatient (Routine) - Authorized Specialty Diagnoses / Procedures Referred By Eri jay Referred To Contact Diagnoses Atrial Fibrillation Paroxysmal (HCC) Procedures ECG 12 Lead Nohelia De La Cruz M.D. [address] [place] [address] [facility] Region Referral ID Status Reason Start Date Expiration Date V isits Requested Visits Authorized [id number] Authorized 03/26/2023 03/25/2024 1 1 Reason for Visit * Reason Comments Routine Correction Visit SNF admission * Appointment Request (Routine) - Closed Specialty Diagnoses / Procedures Referred By Contac t Referred To Contact Senior Care Facility Referral ID Status Reason Start Date Expiration Date Visits Re quested Visits Authorized [id number] Closed 03/24/2023 03/23/2024 1 1 Encounter Details Date Type Department Care Team (Latest Contact Info) Description 03/26/2023 3:00 PM CDT External Outreach Senior Services in [facility] [address] [place] [address] Nohelia Garrido M.D. [address] [place] [address] Atrial Fibrillation Paroxysmal (HCC) (Primary Dx); Constipation Slow Transit; Dementia (HCC); Depression Anxiety; Gastroesophageal Reflux Disease Without Esophagitis; History Of Falling; Hyperlipidemia Mixed; Hypertension And Chronic Kidney Disease Stage 2; Hypothyroidism; Halfway (Current) Anticoagulant Treatment; Pacemaker Cardiac Status [...] 06/26/2024 Scheduling Instructions: PPX to perform at [facility] Order Specific Question: Region: Answer: [facility] Region [[id number]] Electronically signed by: Nohelia De La Cruz M.D. 03/26/23 2:07 PM CDT documented in this encounter H&P Notes * Nohelia De La Cruz M.D. - 03/26/2023 3:00 PM CDT CHIEF COMPLAINT / REASON FOR VISIT [facility] Admission Visit Visit Type: In Person: Face to Face Living situation prior to admission: Home with . No services Primary care provider: Dr. Arevalo, [facility] SUBJECTIVE HISTORY OF PRESENT ILLNESS Today's narrative history (obtained from Patient and Nursing): Abraham Mancuso was admitted to [facility] on 03/24/2023 from [facility]. Patient was admitted there on 03/16 [...] cancer on tamsulosin, hypothyroidism. Since admission to [facility], he has had no falls. He [...] - Primary Atrial fibrillation on sotalol and jail anticoagulation with Xarelto 20 mg. Admission 03/16/2023 [...] Hypothyroidism On levothyroxine 175 mcg daily 11. Accounts Officer (Current) Anticoagulant Treatment On rivaroxaban in the setting of atrial fibrillation. 12. 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 Followed by Dr. Oscar Miner through [place] [facility] [place] [facility]. 13. Primary Malignant [...] 175 mcg. Will need follow-up TSH #10 Halfway (Current) Anticoagulant Treatment #11 Pacemaker Cardiac Status [...] Disposition Planning This is a planned short-term usp stay for rehabilitation. Patient plans to return to previous living situation at the completion of therapies. #16 Correction Stay Justification Exam Current comorbidities, ADL [...] And Chronic Kidney Disease Stage 2 Hypothyroidism Halfway (Current) Anticoagulant Treatment Pacemaker Cardiac Status Post Primary Malignant Neoplasm Of Prostate (HCC) Rhinitis Allergic Hypotension Orthostatic documented in this encounter Care Teams Powertrain Control Systems Engineer Relationship Specialty Start Date End Date Rick Sotelo CYuNAn, M.S.N. [address] [place] [phone] PCP - General Internal Medicine 03/24/23 04/07/23 documented as of this encounter
--- OUTSIDE RECORDS SUMMARY | 2023-12-11 07:27 | XMS_ITS | Encounter Summary ---
Author Name Unknown Organization [facility] Address [address] [place] [address] Care Team Providers Care Lottery Sales Clerk Name Role Phone Elsewhere, Pcp Primary Care Provider Unavailabl e Reason for Visit * Reason Onset Date Comments Form Review 04/23/2023 [facility] order [id number] Encounter Details Date Type Department Care Team (Latest Contact Info) Description 04/23/2023 Clinical Communication Department of Community Internal Medicine in [place], [place] [address] [place] [phone] Marj Tang V., EDMUNDO, C.N.P. [address] [place] [phone] Form Review ([facility] order [id number] ) Social History Tobacco Use Types Packs/Day [...] faxed back to facility. Copy sent to [facility] for scanning. * Telephone Encounter - Valentina Valdez - 04/23/2023 9:02 AM CDT Form was emailed to Marj Tang CNP, for electronic review/signature. MANUFACTURING JOB TITLES: [facility] PHONE NUMBER: [phone] INFO REQUESTED: Order [id number] INSTRUCTIONS: Fax information to [phone] documented in this encounter Plan of Treatment Not on file documented as of this encounter Visit Diagnoses Not on filedocumented in this encounter Care Teams Lottery Sales Clerk Relationship Specialty Start Date End Date Elsewhere, Pcp PCP - General Internal Medicine 04/08/23 documented as of this encounter
--- OUTSIDE RECORDS SUMMARY | 2023-12-11 07:27 | XMS_ITS | Encounter Summary ---
Author Name Unknown Organization [facility] Address [address] [place] [address] Care Team Providers Care Recycling Operations Manager Name Role Phone Elsewhere, Pcp Primary Care Provider Unavailabl e Encounter Details Date Type Department Care Team (Late st Contact Info) Description 02/25/2023 Orders Only Department of Community Internal Medicine in [place], [place] [address] [facility] [place] [phone] Marj Tang V., EDMUNDO, C.N.P. 300 [facility] [place] [address] Social History Tobacco Use Types [...] on filedocumented in this encounter Care Teams Recycling Operations Manager Relationship Specialty Start Date End Date Elsewhere, Pcp PCP - General Internal Medicine 02/24/23 03/23/23 documented as of this encounter
--- OUTSIDE RECORDS SUMMARY | 2023-12-11 07:27 | XMS_ITS | Encounter Summary ---
Author Name Unknown Organization [facility] Address [address] [place] [address] Care Team Providers Care Calculus Professor Name Role Phone Rick Sotelo C.N.PYu, M.S.N. Primary Care Pr ovid Reason for Visit * Appointment Request (Routine) - Closed Specialty Diagnoses / Procedures Referred By Eri jay Referred To Contact Long-Term Facility Referral ID Status Reason Start Date Expiration Date Visits Re quested Visits Authorized [id number] Closed 02/19/2023 02/19/2024 1 1 Encounter Details Date Type Department Care Team (Latest Contact Info) Description 02/23/2023 3:00 PM CDT External Outreach Senior Services in [facility] [address], [place] [address] Marj Tang APRN, C.N.P. 300 [facility] [phone] History Of Falling (Primary Dx); Dementia (HCC); [...] this encounter Progress Notes * Marj Tang V. EDMUNDO, C.N.P. - 02/23/2023 3:00 PM CDT CHIEF COMPLAINT / REASON FOR VISIT [facility] Discharge Visit Visit Type: In Person: Face to Face SUBJECTIVE HISTORY OF PRESENT ILLNESS Today's narrative history (obtained from Patient and Nursing): Abraham Mancuso is a 82 y.o. male who underwent rehab at [facility] from 01/28/23 to 02/24/23, after being hospitalized at [facility] from 01/26/23 to 01/28/23 for fall at home with loss of consciousness and facial injuries. He has completed therapy in the [facility] and is ready for discharge to home.He will need a front wheeled walker due to falling. The following medical problems were actively reviewed (including updating overview sections as necessary) and addressed as part of today's visit: Diagnosis Overview 1. Hyperlipidemia Mixed Hyperlipidemia mixed on atorvastatin 40 mg 2. Hypothyroidism On levothyroxine 200 mcg daily 3. Atrial Fibrillation Unspecified Atrial fibrillation on sotalol and care home anticoagulation with Xarelto 20 mg. 4. Primary [...] syndrome. Followed by Dr. Oscar Miner through [place] [facility] [place] at [facility]. 10. History Of Falling - [...] Rate controlled on sotalol. Continue Xarelto for intermediate accountant anticaogulation. #5 Hyperlipidemia Mixed Assessment & Plan: [...] mg daily. Follow up with urology in [place]. 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 Follow up with urology in [place]. * Assessment & Plan Note - Marj [...] Rate controlled on sotalol. Continue Xarelto for care home anticaogulation. * Assessment & Plan Note - [...] Allergic documented in this encounter Care Teams Calculus Professor Relationship Specialty Start Date End Date Rick Sotelo C.NAn, M.S.N. [address] [place] [phone] PCP - General Internal Medicine 01/27/23 02/23/23 documented as of this encounter
--- OUTSIDE RECORDS SUMMARY | 2023-12-11 07:27 | XMS_ITS | Encounter Summary ---
Author Name Unknown Organization [facility] Address [address] [place] [address] Care Team Providers Care Poultry Grader Name Role Phone Elsewhere, Pcp Primary Care Provider Unavailabl e Reason for Visit * Reason Onset Date Comments Form Review 05/14/2023 [facility] (Order [id number] Encounter Details Date Type Department Care Team (Latest Contact Info) Description 05/14/2023 Clinical Communication Department of Community Internal Medicine in [place], [place] [address] [place] [address] Marj Tang V., EDMUNDO, C.N.P. [address] [place] [phone] Form Review ([facility] (Order [id number]) Social History Tobacco Use Types Packs/Day Years [...] into patient's chart. * Telephone Encounter - Saolni Johnston C.Ph.T. - 05/14/2023 5:02 PM CDT Form was emailed to Marj Tang APRN, CNP for electronic review/signature. BRILLIANDEER LOPPER: [facility] PHONE NUMBER: [phone] INFO REQUESTED: Order [id number] INSTRUCTIONS: Fax information to [phone] documented in this encounter Plan of Treatment Not on file documented as of this encounter Visit Diagnoses Not on filedocumented in this encounter Care Teams Poultry Grader Relationship Specialty Start Date End Date Elsewhere, Pcp PCP - General Internal Medicine 04/08/23 documented as of this encounter
--- OUTSIDE RECORDS SUMMARY | 2023-12-11 07:28 | XMS_ITS | Encounter Summary ---
Author Name Unknown Organization [place] Address [facility] [place] [address] Care Team Providers Care Vapor Coater Name Role Phone Carlos Alberto Corral MD Primary Care Provider [phone] Maikel Brock Primary Care Provider [phone] Norma Cortez PA-C Unavailable [phone] Henry Vidal MD Unavailable [phone] Encounter Details Date Type Department Care Team (Late st Contact Info) Description 03/03/2014 Office Visit-[facility] [place] [address] [facility] [address] [place] [address] Jey Parks MD [address] [facility] [address] [place] [address] Social History Tobacco Use Types Packs/Day Years [...] Referring Physician: CARLOS ALBERTO CORRAL Referring Clinic: [facility] CURRENT DIAGNOSES 1. - Shortness of Breath, [...] and 3; Exercise - exercises regularly, elyptical call center trainer, walking and 3-4 x week; REVIEW [...] heart disease. We will refer himto a electrical maintenance supervisor to see if medical therapy with metoprolol [...] 1 week 2. F/U with [facility] 4-7 days, Aliya Raygoza, Marybel Ahumada, Cookie Bragg ONLY 3. [facility] Jey Parks M.D. documented in this encounter Plan of Treatment Not on file documented as of this encounter Visit Diagnoses Not on filedocumented in this encounter Care Teams Vapor Coater Relationship Specialty Start Date End Date Carlos Alberto Corral MD PCP - General Internal Medicine 10/15/12 09/18/17 Maikel Brock 100 [facility] [place] [address] PCP - General Family Practice 09/19/17 Norma Cortez PA-C [address] [facility] [address] [place] [address] Physician Scale And Skip Car Operator Urology 10/03/22 Henry Vidal MD [address] [facility] [address] [facility] [address] [place] [address] Assigned Surgical Provider 11/08/22 documented as of this encounter
--- OUTSIDE RECORDS SUMMARY | 2023-12-11 07:28 | XMS_ITS | Clinical Summary ---
Author Name Unknown Organization [place] Address [facility] [place] [address] Care Team Providers Care Triple Drum Operator Name Role Phone Maikel Brock Primary Care Provider [phone] Norma Cortez PA-C Unavailable Henry Vidal MD Unavailable [phone] Allergies Active Allergy Reactions Criticality Noted Date [...] Comments Blood Pressure 120/80 10/30/2022 9:37 AM ENGINEERING LIBRARIAN Pulse 66 10/30/2022 9:37 AM ENGINEERING LIBRARIAN Temperature 36.6 ??C (97.9 ??F) 09/19/2017 9:41 AM CS T Respiratory Rate 20 09/19/2017 12:54 PM ENGINEERING LIBRARIAN Oxygen Saturation 98% 10/30/2022 9:37 AM ENGINEERING LIBRARIAN Inhaled Oxygen Concentration - - Weight 88 kg (194 lb) 10/30/2022 9:37 AM ENGINEERING LIBRARIAN Height 172.7 cm (5' 8) 10/30/2022 9:37 AM ENGINEERING LIBRARIAN Body Mass Index 29.5 10/30/2022 9:37 AM ENGINEERING LIBRARIAN Plan of Treatment Health Maintenance Due Date [...] on patient's age to complete this topic Advance Directives For more information, please contact: [phone] Documents on File Type Date Recorded Patient Ship Fitter Expl anation Advance Directives and Living Will 11/07/2012 8:20 AM HEALTH CARE DIRECTIVE-10/09/1999 Advance Directives and Living Will 11/07/2012 8:20 AM VALIDATION OF AD-10/09/1999 Care Teams Triple Drum Operator Relationship Specialty Start Date End Date Maikel Brock 100 [facility] [place] [address] PCP - General Family Practice 09/19/17 Norma Cortez PA-C [address] [place] [address] [place] [address] Physician Retreader Urology 10/03/22 Henry Vidal MD [address] [place] [address] [place] [address] Assigned Surgical Provider 11/08/22
--- OUTSIDE RECORDS SUMMARY | 2023-12-11 07:28 | XMS_ITS | Encounter Summary ---
Author Name Unknown Organization [place] Address [facility] [place] [address] Care Team Providers Care Compressor House Operator Name Role Phone Maikel Brock Primary Care Provider [phone] Norma Cortez PA-C Unavailable [phone] Henry Vidal MD Unavailable [phone] Reason for Visit * Reason Onset Date Comments Appointment 10/03/2022 Cath removal Encounter Details Date Type Department Care Team (Late st Contact Info) Description 10/03/2022 Telephone [facility] [address] [place] [address] Henry Vidal MD [address] [facility] [address] [place], [place] [address] Appointment (Cath removal ) Social History Tobacco [...] Coronavirus/COVID-19? Unable to assess 10/03/2022 1:09 PM FRENCH BINDING FOLDER documented as of this encounter Miscellaneous Notes * Telephone Encounter - Lia Kelsey - 10/07/2022 2:06 PM CST Pt daughter thought she got a call from Brianna to call to set up appt. No notes in chart. Please callpt to daughter, see prev notes. Thank you CH BINDING FOLDER * Telephone Encounter - Chelly Barrett - 10/03/2022 3:45 PM CST Patient's daughter called again to get appointment scheduled. She said the hospital called to set up an appointment and scheduled him for December but paperwork says within 10 days. Please call daughterback to schedule. Thank you. CH BINDING FOLDER * Telephone Encounter - Olga Brumfield - 10/03/2022 10:36 AM CST [facility] Call Center Phone Message May a detailed message be left on voicemail: yes Reason for Call: Appointment Intake Referring Provider Name: [facility] Diagnosis and/or Symptoms: sepsis- gross hematuria- hx of prostate cancer pts daughter Jalil is calling- pt is currently in the ED, and is needing an urgent appt to remove his cath within 1 week, please call pts daughter jalil, thank you Action Taken: Message routed to: Other: uro Travel Screening: Not Applicable CH BINDING FOLDER documented in this encounter Plan of Treatment Not on file documented as of this encounter Visit Diagnoses Not on filedocumented in this encounter Care Teams Compressor House Operator Relationship Specialty Start Date End Date Maikel Brock [address] [place] [address] PCP - General Family Practice 09/19/17 Norma Cortez PA-C [address] [address] Physician Fence Post Cutter Urology 10/03/22 Henry Vidal MD [address] [facility] [address] [place] [address] Assigned Surgical Provider 11/08/22 documented as of this encounter
--- OUTSIDE RECORDS SUMMARY | 2023-12-11 07:28 | XMS_ITS | Referral Summary ---
Author Name Unknown Organization [place] Address [facility] [place] [address] Care Team Providers Care Candy Decorator Name Role Phone Maikel Brock Primary Care Provider [phone] Norma Cortez PA-C Unavailable Henry Vidal MD Unavailable [phone] Allergies Active Allergy Reactions Criticality Noted Date [...] Comments Blood Pressure 120/80 10/30/2022 9:37 AM ASSEMBLY RIVETER Pulse 66 10/30/2022 9:37 AM ASSEMBLY RIVETER Temperature 36.6 ??C (97.9 ??F) 09/19/2017 9:41 AM CS T Respiratory Rate 20 09/19/2017 12:54 PM ASSEMBLY RIVETER Oxygen Saturation 98% 10/30/2022 9:37 AM ASSEMBLY RIVETER Inhaled Oxygen Concentration - - Weight 88 kg (194 lb) 10/30/2022 9:37 AM ASSEMBLY RIVETER Height 172.7 cm (5' 8) 10/30/2022 9:37 AM ASSEMBLY RIVETER Body Mass Index 29.5 10/30/2022 9:37 AM ASSEMBLY RIVETER Plan of Treatment Not on file Advance Directives For more information, please contact: [phone] Documents on File Type Date Recorded Patient Oil Inspector Expl anation Advance Directives and Living Will 11/07/2012 8:20 AM HEALTH CARE DIRECTIVE-10/09/1999 Advance Directives and Living Will 11/07/2012 8:20 AM VALIDATION OF AD-10/09/1999 Care Teams Candy Decorator Relationship Specialty Start Date End Date Maikel Brock [address] [facility] [address] [place] [address] PCP - General Family Practice 09/19/17 Norma Cortez PA-C [address] [facility] [address] [place] [address] Physician Car Restorer Urology 10/03/22 Henry Vidal MD [address] [facility] [address] [place], [place] [address] Assigned Surgical Provider 11/08/22
--- OUTSIDE RECORDS SUMMARY | 2023-12-11 07:28 | XMS_ITS | Encounter Summary ---
Author Name Unknown Organization [place] Address [facility] [place] [address] Care Team Providers Care Telephonic Nurse Case Manager Name Role Phone Carlos Alberto Corral MD Primary Care Provider [phone] Maikel Brock Primary Care Provider [phone] Norma Cortez PA-C Unavailable [phone] Henry Vidal MD Unavailable [phone] Encounter Details Date Type Department Care Team (Late st Contact Info) Description 03/10/2014 Office Visit-[facility] [place] [address] [facility] [address] [place] [address] Tyrell Jarvis MD [address] [facility] [address] [place], [place] [id number] Social History Tobacco Use Types Packs/Day Years [...] Progress Note Created by: Tyrell Jarvis M.D. [id number] DATE: 03/10/2014 REBEKAH XIONG DATE OF : 1940 AGE: [age] years old Referring Physician: CARLOS ALBERTO CORRAL Referring Clinic: [facility] CURRENT DIAGNOSES 1. - SVT [...] on filedocumented in this encounter Care Teams Telephonic Nurse Case Manager Relationship Specialty Start Date End Date Carlos Alberto Corral MD PCP - General Internal Medicine 10/15/12 09/18/17 Maikel Brock [address] [place] [address] PCP - General Family Practice 09/19/17 Norma Cortez PA-C [address] [facility] [address] [place] [address] Physician Fiberglass Boat Assembly Supervisor Urology 10/03/22 Henry Vidal MD [address] [facility] [address] [place] [address] Assigned Surgical Provider 11/08/22 documented as of this encounter
== END 2023-12-10 16:54 | disposition home or self-care (01) ==
LOC: NFLDREF 12-11 07:25
PROVIDERS: PCP Family Medicine; Referring Provider Family Medicine; Visit Provider Physician Assistant
DX: R31.9 Hematuria, unspecified (principal); N39.0 Urinary tract infection, site not specified
CPT/HCPCS: 87086; 87186